=== PATIENT | male | born 1955 | race Caucasian/White ===

== ENCOUNTER 2021-02-01 17:46 | Emergency (ER) | payer MEDICAID, SELFPAY ==
[2021-02-01 17:57] VITALS: BP 100/65; PULSE 97; RESP 16; TEMP 36.3; O2SAT 93; BMI 28.8
[2021-02-01 18:55] VITALS: BP 106/73; BP 108/66; BP 90/63; PULSE 89; PULSE 90; PULSE 96
[2021-02-01 18:55] LABS: Add Urine Microscopic? NO; Charge for UA Resulting for Rev
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
--- NOTE | 2021-02-01 19:03 | ECG_ITS ---
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
[2021-02-01 19:23] LABS: Basophils # 0.1 10^3/uL (0.0-0.1); Basophils % 0.4 %; Eosinophils % 0.1 %; Hematocrit 40.1 % (42.0-52.0); Hemoglobin 13.8 g/dL (11.7-16.6); Mean Corpuscular HGB Conc 34.4 g/dL (30.0-36.0); Mean Corpuscular Hemoglobin 31.4 pg (28.0-34.0); Mean Corpuscular Volume 91.1 fL (80-94); Mean Platelet Volume 9.5 fL (7.4-10.4); Monocytes # 1.8 10^3/uL (0.2-0.9); Neutrophils # 16.91 10^3/uL (1.8-7.7); Neutrophils % 84.9 %; Nucleated Red Blood Cells % 0 %; Platelet Count 307 10^3/cmm (130-400); Red Cell Distribution Width 12.2 % (12.1-15.1); White Blood Count 19.9 10^3/uL (4.0-10.0)
[2021-02-01 19:28] LABS: Bilirubin Urine 1+ (Negative); Blood Urine Neg (Negative); Glucose Urine UA Norm (Normal); Ketones Urine 2+ (Negative); Leukocyte Esterase Urine Negative (Negative); Nitrate Urine Negative (Negative); Protein Urine Neg (Negative); Specific Gravity, Urine 1.015 (1.005-1.030); Urine Appearance Clear (CLEAR); Urine Color Yellow (Yellow); Urobilinogen Urine 1 mg/dL (Negative); pH Urine 5 (5-7)
--- NOTE | 2021-02-01 19:42 | XRR_ITS ---
PROCEDURE INFORMATION: Exam: XR Chest Exam date and time: 02/01/2021 8:05 PM Age: 65 years old Clinical indication: Cough; Additional info: Cough - vrad to read TECHNIQUE: Imaging protocol: XR of the chest. Views: 1 view. Total images: 1 COMPARISON: No relevant prior studies available. FINDINGS: Lungs: COPD/chronic bronchitis/emphysema. Senile fibrosis primarily lung bases with mild parenchymal scarring. Evidence of antecedent granulomatous disease. Pleural spaces: Unremarkable. No pleural effusion. No pneumothorax. Heart/Mediastinum: Cardiac structures and configuration with arteriosclerosis. Bones/joints: Unremarkable. XR/XR chest 1V portable [id number] IMPRESSION: Nonacute.
[2021-02-01 19:43] LABS: Alanine Aminotransferase 13 U/L (0-41); Albumin Level 3.8 g/dL (3.5-5.2); Alkaline Phosphatase 100 IU/L (40-130); Anion Gap 14.9 (5-19); Aspartate Amino Transferase 12 U/L (0-40); Blood Urea Nitrogen 16 mg/dL (8-23); Calcium 8.5 mg/dL (8.5-10.5); Carbon Dioxide 24 mmol/L (22-29); Chloride 91 mmol/L (98-107); Globulin 3.1 g/dL (1.3-4.6); Glomerular Filtration Rate 67.4 mL/min (90-130); Glucose 104 mg/dL (65-115); Osmolality Calculated 263 mOsm/kg (285-295); Potassium 3.9 mmol/L (3.5-5.1); Sodium 126 mmol/L (136-145); Total Bilirubin 1.5 mg/dL (0.15-1.2); Total Protein 6.9 g/dL (6.6-8.7)
[2021-02-01] MEDS: sodium chloride 0.9% 500 ML 999 ML IV ×2 (19:43→20:33)
[2021-02-01 19:44] VITALS: BP 119/71; PULSE 87; RESP 15; O2SAT 94
[2021-02-01 19:44] LABS: Lactate (Lactic Acid level) 0.9 mmol/L (0.5-2.2)
[2021-02-01] MEDS: amoxicillin-clav 875-125 mg Tablet 1 TAB PO (21:07)
[2021-02-01 21:08] VITALS: BP 133/86; PULSE 94; RESP 15; O2SAT 93
[2021-02-01 21:14] VITALS: BP 133/86; RESP 16; O2SAT 94
== END 2021-02-01 21:15 | disposition home or self-care (01) ==
PROVIDERS: Emergency Provider Nurse Practitioner Family
DX: T88.7XXA Unspecified adverse effect of drug or medicament, initial encounter (principal); T50.905A Adverse effect of unspecified drugs, medicaments and biological substances, initial encounter; J44.0 Chronic obstructive pulmonary disease with (acute) lower respiratory infection; J20.9 Acute bronchitis, unspecified; Z79.82 Long term (current) use of aspirin; I10 Essential (primary) hypertension
CPT/HCPCS: 71045; 80053; 81003; 83605; 85025; 93005; 99283; J7040

== ENCOUNTER 2021-02-06 11:48 | Inpatient (IN) | payer MEDICAID, SELFPAY ==
[2021-02-06] VITALS (28 sets, daily range): BP systolic 87–146; BP diastolic 59–91; PULSE 71–127; RESP 14–34; TEMP 35.6–37.9; O2SAT 86–97; BMI 30.4
--- NOTE | 2021-02-06 13:06 | XRR_ITS ---
PROCEDURE INFORMATION: Exam: XR Chest Exam date and time: 02/06/2021 1:45 PM Age: 65 years old Clinical indication: Cough and dyspnea; Patient HX: Dehydration no chest complaints; Additional info: Dyspnea/cough TECHNIQUE: Imaging protocol: XR of the chest. Views: 1 view. COMPARISON: CR (CHEST, ) 02/01/2021 7:55 PM FINDINGS: Lungs: Increased patchy parenchymal airspace opacities in the lateral right lower lobe compared with recent prior. Mild emphysematous changes. Pleural spaces: Unremarkable. No pleural effusion. No pneumothorax. Heart/Mediastinum: Unremarkable. No cardiomegaly. Bones/joints: Unremarkable. XR/XR chest 1V portable [id number] IMPRESSION: Increasing right lower lobe airspace disease.
--- NOTE | 2021-02-06 13:07 | W.ED.GENADLT ---
HPI - General Adult General: Chief complaint: General Medical Stated complaint: DEHYDRATION/WEAKNESS Time Seen by Provider: 02/06/21 12:24 History of Present Illness: HPI narrative: 65-year-old male comes in complaining of weakness difficulty standing up he was recently placed on Lasix. He was seen last week and was had some his blood pressure medicines decreased. When he arrived EMS found his mildly hypoxic he does not usually use oxygen was started on 3 L by nasal cannula. He denies any chest pain has had some cough and shortness of breath. No fever. He was seen last week and treated for bronchitis with Augmentin which she has been taking. Onset (ago): day(s) Severity: moderate Relieving factors: none Exacerbating factors: none Associated symptoms: Reports cough and dyspnea; Deny chest pain, confusion, diaphoresis, decreased appetite, fevers/chills, headache(s), malaise, nausea, rash, palpitations, seizures, short of breath, syncope, vomiting or weakness Review of Systems Const: Denies: malaise or diaphoresis ENMT: Denies: throat pain, ear or mastoid pain, nasal discharge or nasal congestion Card: Denies: chest pain, palpitations or syncope Resp: Reports: dyspnea, productive cough and wheezing GI: Denies: nausea or vomiting : Denies: flank pain, dysuria, urinary frequency or urinary urgency Skin/Breast: Denies: rash Neuro: Denies: headache(s) or confusion PFS ED PFSH: Medical History COPD (chronic obstructive pulmonary disease) HTN (hypertension) Family History Other CAD (coronary artery disease) Hypertension Denies family history of Diabetes Social History Smoking and tobacco status: former smoker Quit status (tobacco): has quit using tobacco Alcohol intake: former Housing: House Physical Exam Const: COMMON NORMALS: no acute distress GENERAL APPEARANCE: cooperative and comfortable ORIENTATION/CONSCIOUSNESS: Yes awake, Yes oriented to person, Yes oriented to place and Yes oriented to time HENMT: COMMON NORMALS: normocephalic, atraumatic and hearing grossly normal bilaterally HEAD & SCALP: normocephalic and atraumatic Neck/C-Spine: COMMON NORMALS: no JVD Resp: AUSCULTATION: rhonchi, wheezes and diminished lung sounds Cardio: COMMON NORMALS: no JVD, regular rhythm and No murmurs present (Cardio) RATE: tachycardic RHYTHM: regular rhythm GI: COMMON NORMALS: Soft to palpation and No hepatosplenomegaly present AUSCULTATION: Yes normoactive bowel sounds PALPATION: Yes Soft to palpation, No Tenderness to palpation present (GI), No Guarding due to palpation present (GI) and Yes No hepatosplenomegaly present Extremity: COMMON NORMALS: normal to inspection, capillary refill normal, no clubbing, cyanosis or edema, no calf tenderness and no pedal edema Neuro: SENSORIUM/ORIENTATION: Yes oriented to person, Yes oriented to place and Yes oriented to time Skin: COMMON NORMALS: no rashes or lesions noted GENERAL SKIN EXAM: no rashes or lesions noted Course Vital Signs: Vital signs: Vital Signs Temperature 96.8 F L 02/08/21 04:00 Pulse Rate 99 02/08/21 07:34 Respiratory Rate 16 02/08/21 07:10 Blood Pressure 132/99 02/08/21 05:15 Pulse Oximetry 94 02/08/21 07:10 MDM - General Adult MDM Narrative: Medical decision making narrative: Chest x-ray shows right lower lobe pneumonia we will start on Levaquin and Zosyn admit to the hospital for supportive cares he also has some mild hyponatremia. His Covid antigen was negative he has an outstanding PCR so he will remain as a PUI at the time of admission discussed with hospitalist orders written Lab Data: Labs: Lab Results 02/06/21 02/06/21 02/06/21 Range/Units 13:00 13:00 13:00 WBC 18.8 H (4.0-10.0) 10^3/ uL RBC 3.99 L (4.1-5.3) 10^6/u L Hgb 12.4 (11.7-16.6) g/dL Hct 36.6 L (42.0-52.0) % MCV 91.7 (80-94) fL MCH 31.1 (28.0-34.0) pg MCHC 33.9 (30.0-36.0) g/dL RDW 12.5 (12.1-15.1) % Plt Count 308 (130-400) 10^3/c mm MPV 11.0 H (7.4-10.4) fL Neut % (Auto) 88.3 % Lymph % (Auto) 2.9 % Childress % (Auto) 7.8 % Eos % (Auto) 0.0 % Baso % (Auto) 0.4 % Neut # (Auto) 16.64 H (1.8-7.7) 10^3/u L Lymph # (Auto) 0.5 L (0.8-4.8) 10^3/u L Childress # (Auto) 1.5 H (0.2-0.9) 10^3/u L Eos # (Auto) 0.0 (0.0-0.8) 10^3/u L Baso # (Auto) 0.1 (0.0-0.1) 10^3/u L Nucleated RBC % (a uto) 0 % Nucleated RBCs # 0.0 /100WBC D-Dimer (0-0.59) ug/mIFE U Sodium 123 L (136-145) mmol/L Potassium 4.0 (3.5-5.1) mmol/L Chloride 90 L (98-107) mmol/L Carbon Dioxide 22 (22-29) mmol/L Anion Gap 15.0 (5-19) BUN 24 H (8-23) mg/dL Creatinine 1.4 H (0.7-1.2) mg/dL GFR Calculation 51.0 L (90-130) mL/min Glucose 129 H (65-115) mg/dL Calculated Osmolal ity 262 L (285-295) mOsm/k g Calcium 7.9 L (8.5-10.5) mg/dL Magnesium 1.9 (1.7-2.3) mg/dL Iron 15 L (59-158) ug/dL TIBC 190 mcg/dl % Saturation 7.8 L (20-50) % Unsat Iron Binding 175 (112-347) ug/dL Total Bilirubin 0.6 (0.15-1.2) mg/dL AST 42 H (0-40) U/L ALT 35 (0-41) U/L Alkaline Phosphata se 75 (40-130) IU/L Creatine Kinase 523 H* (39-308) U/L NT-Pro-B Natriuret Pep 725 H (0-125) pg/mL Total Protein 6.7 (6.6-8.7) g/dL Albumin 3.2 L (3.5-5.2) g/dL Globulin 3.5 (1.3-4.6) g/dL Procalcitonin 0.36 (0-0.5) ng/mL TSH 0.39 (0.27-4.20) uIU/ mL 02/06/21 Range/Units 13:00 WBC (4.0-10.0) 10^3/ uL RBC (4.1-5.3) 10^6/u L Hgb (11.7-16.6) g/dL Hct (42.0-52.0) % MCV (80-94) fL MCH (28.0-34.0) pg MCHC (30.0-36.0) g/dL RDW (12.1-15.1) % Plt Count (130-400) 10^3/c mm MPV (7.4-10.4) fL Neut % (Auto) % Lymph % (Auto) % Childress % (Auto) % Eos % (Auto) % Baso % (Auto) % Neut # (Auto) (1.8-7.7) 10^3/u L Lymph # (Auto) (0.8-4.8) 10^3/u L Childress # (Auto) (0.2-0.9) 10^3/u L Eos # (Auto) (0.0-0.8) 10^3/u L Baso # (Auto) (0.0-0.1) 10^3/u L Nucleated RBC % (a uto) % Nucleated RBCs # /100WBC D-Dimer 4.44 H (0-0.59) ug/mIFE U Sodium (136-145) mmol/L Potassium (3.5-5.1) mmol/L Chloride (98-107) mmol/L Carbon Dioxide (22-29) mmol/L Anion Gap (5-19) BUN (8-23) mg/dL Creatinine (0.7-1.2) mg/dL GFR Calculation (90-130) mL/min Glucose (65-115) mg/dL Calculated Osmolal ity (285-295) mOsm/k g Calcium (8.5-10.5) mg/dL Magnesium (1.7-2.3) mg/dL Iron (59-158) ug/dL TIBC mcg/dl % Saturation (20-50) % Unsat Iron Binding (112-347) ug/dL Total Bilirubin (0.15-1.2) mg/dL AST (0-40) U/L ALT (0-41) U/L Alkaline Phosphata se (40-130) IU/L Creatine Kinase (39-308) U/L NT-Pro-B Natriuret Pep (0-125) pg/mL Total Protein (6.6-8.7) g/dL Albumin (3.5-5.2) g/dL Globulin (1.3-4.6) g/dL Procalcitonin (0-0.5) ng/mL TSH (0.27-4.20) uIU/ mL Discharge Plan Discharge Patient Disposition: Admitted As Inpatient Admit Provider: Rai Wheeler Clinical Impression: Pneumonia, COPD (chronic obstructive pulmonary disease), Hyponatremia, ALTA (acute kidney injury), Rhabdomyolysis Condition: Stable 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
[2021-02-06] MEDS: sodium chloride 0.9% 1,000 ML 999 ML IV (13:17)
[2021-02-06 13:18] LABS: Basophils # 0.1 10^3/uL (0.0-0.1); Basophils % 0.4 %; Hematocrit 36.6 % (42.0-52.0); Hemoglobin 12.4 g/dL (11.7-16.6); Lymphocytes # 0.5 10^3/uL (0.8-4.8); Lymphocytes % 2.9 %; Mean Corpuscular HGB Conc 33.9 g/dL (30.0-36.0); Mean Corpuscular Hemoglobin 31.1 pg (28.0-34.0); Mean Corpuscular Volume 91.7 fL (80-94); Monocytes # 1.5 10^3/uL (0.2-0.9); Monocytes % 7.8 %; Neutrophils # 16.64 10^3/uL (1.8-7.7); Neutrophils % 88.3 %; Nucleated Red Blood Cells % 0 %; Platelet Count 308 10^3/cmm (130-400); Red Blood Count 3.99 10^6/uL (4.1-5.3); Red Cell Distribution Width 12.5 % (12.1-15.1); White Blood Count 18.8 10^3/uL (4.0-10.0)
--- NOTE | 2021-02-06 13:22 | PC.NURSE ---
Patient given a specimen cup to collect sputum sample and urinal given to obtain UA. Patient reports he is unable to go at this time. Educated patient that a urine sample is needed as soon as possible. Educated patient to use call light when a urine sample is provided.
[2021-02-06 13:40] LABS: Alanine Aminotransferase 35 U/L (0-41); Albumin Level 3.2 g/dL (3.5-5.2); Alkaline Phosphatase 75 IU/L (40-130); Blood Urea Nitrogen 24 mg/dL (8-23); Calcium 7.9 mg/dL (8.5-10.5); Carbon Dioxide 22 mmol/L (22-29); Chloride 90 mmol/L (98-107); Globulin 3.5 g/dL (1.3-4.6); Glucose 129 mg/dL (65-115); Magnesium 1.9 mg/dL (1.7-2.3); Osmolality Calculated 262 mOsm/kg (285-295); Sodium 123 mmol/L (136-145); Total Bilirubin 0.6 mg/dL (0.15-1.2); Total Protein 6.7 g/dL (6.6-8.7)
[2021-02-06 13:44] LABS: Slide Review Slide Review Perform
[2021-02-06 13:45] LABS: Aspartate Amino Transferase 42 U/L (0-40); Creatine Phosphokinase 523 U/L (39-308)
[2021-02-06] MEDS: piperacillin-tazobactam 3.375 GM in sodium chloride 0.9% (plus) 50 ML IV ×2 (14:23→21:23)
[2021-02-06] MEDS: levofloxacin-dextrose 5 % 750 MG/150 ML PREMIX 100 MG IV (14:36)
[2021-02-06 15:13] LABS: Bilirubin Urine 1+ (Negative); Blood Urine 3+ (Negative); Glucose Urine UA Norm (Normal); Ketones Urine 1+ (Negative); Leukocyte Esterase Urine Negative (Negative); Nitrate Urine Negative (Negative); Protein Urine 1+ (Negative); Urine Appearance Hazy (CLEAR); Urine Color Yellow (Yellow); Urobilinogen Urine 1 mg/dL (Negative); pH Urine 5 (5-7)
[2021-02-06 15:15] LABS: Add Urine Microscopic? YES; Bacteria Urine 2+ /hpf; RBC Urine 0-4 /hpf (0-2)
[2021-02-06 15:16] LABS: Add Urine Culture? Yes
[2021-02-06] MEDS: sodium chloride 0.9% 500 ML 999 ML IV (15:49)
[2021-02-06 15:57] LABS: SARS Covid-2 Antigen Negative (Negative)
--- NOTE | 2021-02-06 17:05 | CTR_ITS ---
PROCEDURE INFORMATION: Exam: CT Chest Without Contrast; Diagnostic Exam date and time: 02/06/2021 5:11 PM Age: 65 years old Clinical indication: Shortness of breath; Additional info: Copd/pna TECHNIQUE: Imaging protocol: Diagnostic computed tomography of the chest without contrast. Radiation optimization: All CT scans at this facility use at least one of these dose optimization techniques: automated exposure control; mA and/or kV adjustment per patient size (includes targeted exams where dose is matched to clinical indication); or iterative reconstruction. COMPARISON: CR XR chest 1V portable [id number] 02/06/2021 1:35 PM RADIATION DOSE METRICS: Total DLP (mGy-cm): 773.51 FINDINGS: Lungs: Severe emphysema. [place] in the right upper lobe. Scattered areas of consolidation throughout right lower lobe. Scattered calcified granulomas in the lungs. Pleural spaces: Trace right-sided pleural effusion. Negative for pneumothorax. Heart: Unremarkable. No cardiomegaly. No pericardial effusion. Mediastinal space: Scattered small calcified granulomas in the nestor and subcarinal space of the mediastinum. Aorta: Unremarkable. No aortic aneurysm. Lymph nodes: Unremarkable. No enlarged lymph nodes. Spleen: Calcified granulomas in the spleen. Bones/joints: Unremarkable. No acute fracture. Multiple old healed left posterior rib fracture deformities. Soft tissues: Unremarkable. CT/CT chest con [id number] IMPRESSION: Bronchopneumonia in the right lower lobe with a trace parapneumonic pleural effusion. Radiation Dose CTDIVOL = (mGy): DLP = 773.51 (mGy-cm)
[2021-02-06] MEDS: ipratropium-albuterol 3 mL Neb INHALATION ×3 (17:28→23:43)
--- NOTE | 2021-02-06 18:00 | P.HP_ITS ---
Providers/Chief Complaint Admitting Physician: Rai Wheeler MD Primary Care Provider: Bishop Mancilla MD Chief Complaint: DEHYDRATION/WEAKNESS History of Present Illness RIKKI IRWIN is a 65 year old male with past medical history of COPD, hypertension who presents to the ER today with worsening shortness of breath for over 1 week. Patient states he was in the ER last and was discharged home with oral Augmentin though her symptoms continue to worsen. He states he is been having difficulty in breathing at rest exacerbated on lying down, minimal movement, speaking. He states he has been having cough with mild expectoration. Denies any chest pain, nausea, vomiting, myalgias. He is not sure if he has been having fever though complaining of weakness. Patient has no history of recent COPD exacerbation. He is a former smoker stopped smoking 2 years ago. He denies any sick contact, COVID-19 immunization or known exposure to COVID-19 pneumonia. Blood work in the ER showed a white run of 18.8, hemoglobin of 12.4, platelet count of three hundred and eight, sodium of one twenty-three, chloride of ninety, creatinine of 1.4, BUN of twenty-four, CPK of 523,UA negative for any signs of UTI. Chest x-ray in the ER concerning for increasing right lower lobe airspace disease. Review of Systems General: Reports: 10 or more systems reviewed and unremarkable except in HPI and below Const: Denies: fever(s), chills, body aches, change in appetite, change in weight, malaise, night sweats, diaphoresis, change in sleep pattern, daytime sleepiness or snoring Eyes: Denies: change in vision, blurry vision, photophobia, eye discomfort or eye discharge ENMT: Denies: throat pain, enlarged tonsils, hoarseness, mouth pain, oral sores, dry mouth, tinnitus, nasal congestion or post nasal drip Card: Denies: chest pain, palpitations, irregular heart rhythm, edema, swelling of feet/ankles, lightheadedness, syncope, pre-syncope, dyspnea on e xertion, orthopnea, leg pain with exertion or acrocyanosis Resp: Denies: dyspnea, productive cough, non-productive cough, wheezing, stridor, pain on inspiration, change in phlegm color, hemoptysis or chest congestion GI: Denies: abdominal pain, nausea, vomiting, hematemesis, coffee ground emesis, dysphagia, heartburn, diarrhea, constipation, bloating, GI cramping, change in bowel habits, pain on defecation, hematochezia or melena : Denies: flank pain, difficulty urinating, dysuria, urinary frequency, urinary urgency, urinary hesitancy, urinary dribbling, difficulty starting urination, change in urine stream, nocturia or hematuria Musc: Denies: neck pain, back pain, extremity pain, joint pain, joint swelling, joint redness, joint stiffness or limited range of motion Neuro: Denies: headache(s), numbness in extremities, weakness in extremities, sensory changes, lack of coordination, difficulty walking, frequent falls, dizziness, vertigo, confusion, Slurred speech present, difficulty communicating thoughts or seizure-like activity Psych: Denies: anxiety, depression, mood swings, panic attacks, hopelessness or irritability Endo: Denies: polyuria, polydipsia, tired all the time, cold intolerance, exc essive sweating, flushing or heat intolerance Valeriy/Lymph: Denies: easy bruising or easy bleeding All/Imm: Denies: tongue swelling, facial swelling or acute wheezing Medications/Allergies Home Medications Medication Instructions Recorded Confirmed Last Taken Type albuterol sulfate [ProAir HFA] 2 puff INHALATION Q6H PRN 02/01/21 02/06/21 02/06/21 History amoxicillin-pot clavulanate 1 tab PO BID #20 tab 02/01/21 02/06/21 02/06/21 Rx [Augmentin] aspirin [Aspir-81] 81 mg PO DAILY@02/01/21 02/06/21 02/06/21 History budesonide-formoterol [Symbicort] 2 puff INHALATION BID@02/01/21 02/06/21 02/06/21 History losartan 100 mg PO DAILY@02/01/21 02/06/21 02/06/21 History metoprolol tartrate 12.5 mg PO Q6H 02/01/21 02/06/21 02/06/21 History tiotropium bromide [Spiriva with 1 cap INHALATION DAILY@02/01/21 02/06/21 02/06/21 History HandiHaler] Allergies Allergy/AdvReac Type Severity Reaction Status Date / Time No Known Allergies Allergy Verified 02/06/21 11:55 PFSH Acute PFSH: Medical History (Updated 02/06/21 @ 18:06 by Rai Wheeler MD) COPD (chronic obstructive pulmonary disease) HTN (hypertension) Family History (Updated 02/06/21 @ 18:07 by Rai Wheeler MD) Other CAD (coronary artery disease) Hypertension Denies family history of Diabetes Social History (Updated 02/06/21 @ 18:07 by Rai Wheeler MD) Smoking and tobacco status: former smoker Quit status (tobacco): has quit using tobacco Alcohol intake: former Housing: House Vitals/I&O/Wt Last Vital Signs Temp 100.3 F H 02/06/21 11:49 Pulse 98 02/06/21 17:35 Resp 20 H 02/06/21 17:28 BP 130/73 02/06/21 13:41 Pulse Ox 94 02/06/21 17:28 Weight last 48 hrs Weight 90.718 kg Physical Exam Narrative: EXAM NARRATIVE: General: No acute distress, AO x3, tired appearing, diaphoretic on 3 L oxygen supplementation HEENT: PERRLA, pupils bilaterally equal and reactive Chest: Bronchial breath sounds, rhonchi all over the lung bauman more in the right lower lobe with coarse crackles, good air entry bilaterally CVS: S1-S2 regular, no murmurs, no tachycardia, no gallops, no rubs Abdomen: Soft, nontender, no organomegaly, bowel sounds present Neuro: No focal deficits, no facial deformity, AO x3, power 5/5 in all limbs Data : 02/06/21 13:00 02/06/21 13:00 Micro: Microbiology 02/06/21 13:40 Blood Culture - Preliminary Blood SPECIMEN COLLECTED 02/06/21 13:20 Blood Culture - Preliminary Blood SPECIMEN COLLECTED A&P Assessment and plan (1) SOB (shortness of breath): Status: Acute (2) Pneumonia: Status: Acute (3) COPD (chronic obstructive pulmonary disease): Status: Acute Qualifiers: COPD type: COPD with acute lower respiratory infection Qualified Code(s): J44.0 - Chronic obstructive pulmonary disease with (acute) lower respiratory infection (4) HTN (hypertension): Status: Acute (5) Hyponatremia: Status: Acute (6) Rhabdomyolysis: Status: Acute (7) ALTA (acute kidney injury): Status: Acute Additional A&P Information Shortness of breath: Most likely secondary to right lower lobe pneumonia in setting of COPD exacerbation: Check blood culture, urine Legionella, sputum culture, procalcitonin, proBNP, MRSA swab. CT chest without contrast to rule out cavitary lesion as suspicious on the x- ray. Start patient on vancomycin and Zosyn, azithromycin for now. Will de-escalate antibiotics as per culture results. DuoNebs every 6 hours, Pulmicort twice daily, albuterol as needed. Solu-Medrol 60 mg every 8 hours. Will wean to steroids as possible. Wean oxygen supplementation keeping saturation over 90%. Patient does not have history of CAD in the past. Check echocardiogram. Lactic acid with reflex. IV fluids with normal saline at 75 cc/h. Rapid COVID-19 antigen negative in the ER. For now suspicion of COVID-19 pneumonia is low. Hypertension: Goal blood pressure less than 140/90 mmHg. For now hold off on losartan given ALTA but continue to home dose of metoprolol. ALTA: Most likely secondary to dehydration. Medical reconciliation done for nephrotoxic drugs. IV fluids as above. Hyponatremia: Normal saline as above. Continue to monitor. CODE STATUS: Patient states he would like to be full code. Cardiac diet. Lovenox for DVT prophylaxis. Famotidine for PUD prophylaxis Attestations Medical Necessity Statement*: Was admission for more than two midnights for treatment of community-acquired pneumonia causing shortness of breath in setting of COPD exacerbation Time Spent in Patient Care: Greater than 35 minutes (>than 50% of time spent in counselling and/or direct pt care on unit) . Coding Level of Care Code Acute [employer] Counselor for [facility] Fwd Diagnoses SOB (shortness of breath) R06.02 Pneumonia J18.9 COPD (chronic obstructive pulmonary disease) J44.0 COPD type: COPD with acute lower respiratory infection HTN (hypertension) I10 Hyponatremia E87.1 Rhabdomyolysis M62.82 ALTA (acute kidney injury) N17.9
--- NOTE | 2021-02-06 18:14 | ECG_ITS ---
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 Measurements Intervals Sieper Rate: 96 P: 64 NJ: 170 QRS: -12 QRSD: 154 T: 74 QT: 415 QTc: 526 Interpretive Statements SINUS RHYTHM LEFT BUNDLE BRANCH BLOCK [120+ ms QRS DURATION, 80+ ms Q/S IN V1/V2, 85+ ms R IN I/aVL/V5/V6] Compared to ECG 02/01/2021 19:12:50 Left bundle-branch block now present Electronically Signed On 02-10-2021 5:22:25 CDT by Grace Lundberg M.D. [email or web address] Studiomerit [facility] madisonMadison Reed, Inc.[facility].NaPopravku/store/[id number]
[2021-02-06 18:16] LABS: D Dimer 4.44 ug/mIFEU (0-0.59)
[2021-02-06 18:43] LABS: Iron 15 ug/dL (59-158)
[2021-02-06 18:46] LABS: NT Pro B Type Natriuretic Pept 725 pg/mL (0-125); Procalcitonin 0.36 ng/mL (0-0.5); Thyroid Stimulating Hormone 0.39 uIU/mL (0.27-4.20)
[2021-02-06 18:49] LABS: Percent Saturation 7.8 % (20-50); Total Iron Binding Capacity 190 mcg/dl; Unsaturated Iron Binding 175 ug/dL (112-347)
[2021-02-06] MEDS: metoprolol tartrate 25 mg Tablet 12.5 MG PO (19:34)
[2021-02-06] MEDS: famotidine 20 mg/2 mL INJ IVP (19:34)
[2021-02-06] MEDS: enoxaparin 40 mg/0.4 mL Syringe SUBCUT (19:35)
[2021-02-06] MEDS: ferrous gluconate 324 mg Tablet PO (19:35)
[2021-02-06 19:41] LABS: Lactic Sepsis W/Reflex 1.2 mmol/L (0.5-2.2)
[2021-02-06] MEDS: sodium chloride 0.9% 1,000 ML 75 ML IV (19:43)
[2021-02-06] MEDS: budesonide 0.5 mg/2 mL Neb INHALATION (19:46)
--- NOTE | 2021-02-06 20:06 | PC.NURSE ---
Report to Anjelica MORAGN in ICU at this time.
[2021-02-06] MEDS: vancomycin 1,250 MG/250 ML PIGGYBACK 250 MG IV (21:00)
[2021-02-07] VITALS (65 sets, daily range): BP systolic 88–167; BP diastolic 58–139; PULSE 70–158; RESP 16–32; TEMP 36.4–36.7; O2SAT 87–98
[2021-02-07] MEDS: metoprolol tartrate 25 mg Tablet 12.5 MG PO ×3 (03:09→14:01)
[2021-02-07] MEDS: ipratropium-albuterol 3 mL Neb INHALATION ×3 (03:53→11:21)
[2021-02-07 04:19] LABS: Basophils % 0.1 %; Hemoglobin 11.9 g/dL (11.7-16.6); Lymphocytes # 0.4 10^3/uL (0.8-4.8); Lymphocytes % 2.6 %; Mean Corpuscular HGB Conc 33.1 g/dL (30.0-36.0); Mean Corpuscular Hemoglobin 31.2 pg (28.0-34.0); Mean Corpuscular Volume 94.5 fL (80-94); Mean Platelet Volume 10.7 fL (7.4-10.4); Monocytes # 0.3 10^3/uL (0.2-0.9); Monocytes % 2.1 %; Neutrophils # 14.92 10^3/uL (1.8-7.7); Neutrophils % 94.2 %; Nucleated Red Blood Cells % 0 %; Platelet Count 296 10^3/cmm (130-400); Red Blood Count 3.81 10^6/uL (4.1-5.3); White Blood Count 15.9 10^3/uL (4.0-10.0)
[2021-02-07 04:23] LABS: INR 1.26 (0.8-1.2)
[2021-02-07 04:42] LABS: Alanine Aminotransferase 33 U/L (0-41); Albumin Level 2.8 g/dL (3.5-5.2); Alkaline Phosphatase 65 IU/L (40-130); Aspartate Amino Transferase 33 U/L (0-40); Blood Urea Nitrogen 27 mg/dL (8-23); Calcium 7.8 mg/dL (8.5-10.5); Carbon Dioxide 21 mmol/L (22-29); Chloride 98 mmol/L (98-107); Globulin 3.4 g/dL (1.3-4.6); Glucose 152 mg/dL (65-115); Osmolality Calculated 280 mOsm/kg (285-295); Sodium 131 mmol/L (136-145); Total Bilirubin 0.4 mg/dL (0.15-1.2); Total Protein 6.2 g/dL (6.6-8.7)
--- NOTE | 2021-02-07 05:00 | USCV_ITS ---
RIKKI IRWIN Age: 65 Gender: M : 1955 Exam Date: 02/07/2021 06:21 Ordering Phys: Rai Wheeler MD Technologist: Jennifer Morgan Exam Location: [facility] – [place] Indication: H/O PULM HTN AND DD BP: 127 / 87 HR: 85 Rhythm: Sinus Technical Quality: Technically difficult study MEASUREMENTS (Male / Female) Normal Values 2D ECHO LV Diastolic Diameter PLAX 3.9 cm 4.2 - 5.9 / 3.9 - 5.3 cm LV Systolic Diameter PLAX 2.9 cm IVS Diastolic Thickness 1.6 cm 0.6 - 1.0 / 0.6 - 0.9 cm IVS Systolic Thickness 1.5 cm LVPW Diastolic Thickness 1.2 cm 0.6 - 1.0 / 0.6 - 0.9 cm LVPW Systolic Thickness 1.7 cm RV Chamber Size 3.3 cm LVOT Diameter 2.0 cm LV Ejection Fraction 2D Teich 51.1 % LV Ejection Fraction MOD 2C 67.5 % LV Ejection Fraction 2C AL 68.6 % LA Diameter 3.4 cm LA Width 3.4 cm LA Height 5.1 cm RA Width 4.2 cm RA Height 4.4 cm Aorta at Sinotubular Diameter 2.4 cm M-MODE LV Diastolic Diameter MM 4.5 cm 4.2 - 5.9 / 3.9 - 5.3 cm LV Systolic Diameter MM 3.2 cm LV Ejection Fraction MM Teich 53.8 % IVS Diastolic Thickness MM 1.5 cm 0.6 - 1.0 / 0.6 - 0.9 cm IVS Systolic Thickness MM 1.4 cm LVPW Diastolic Thickness MM 1.2 cm 0.6 - 1.0 / 0.6 - 0.9 cm LVPW Systolic Thickness MM 1.4 cm Aortic Annulus Diameter 2.9 cm LA Ao Ratio MM 1.2 MV E Point Septal Separation 1.1 cm DOPPLER AV Peak Velocity 171.0 cm/s LVOT Peak Velocity 100.0 cm/s AV Area Cont Eq vti 1.8 cm squared AV Area Cont Eq pk 1.9 cm squared MV Area PHT 3.5 cm squared Mitral E to A Ratio 1.0 MV E' Velocity 48.0 cm/s Mitral E to MV E' Ratio 6.3 Mitral E to LV E' Lateral Ratio 6.3 Mitral E to LV E' Septal Ratio 6.4 TR Peak Velocity 316.0 cm/s TR Peak Gradient 39.9 mmHg TV Peak E Velocity 96.0 cm/s Right Atrial Pressure 3.0 mmHg Pulmonary Artery Systolic Pressu 42.9 mmHg PV Peak Velocity 108.0 cm/s RV Acceleration Time 0.1 s RV Ejection Time 0.3 s RV AcT/ET 0.3 FINDINGS Left Ventricle Normal left ventricular size and systolic function, EF 56 %. No regional wall motion abnormalities. Right Ventricle The right ventricle is normal in size and function. Right Atrium The right atrium is normal in size. Left Atrium The left atrium is normal in size. Mitral Valve No gross abnormalities noted Aortic Valve Thickened aortic valve. Tricuspid Valve Trace tricuspid valve regurgitation. Estimated pulmonary artery peak systolic pressure of 43 mmHg Pulmonic Valve Pulmonic valve not well visualized. Pericardium Normal pericardium without effusion. Aorta Normal ascending aorta dimension. CONCLUSIONS Normal left ventricular size and systolic function, EF 56 %. No regional wall motion abnormalities. Thickened aortic valve. Trace tricuspid valve regurgitation. Estimated pulmonary artery peak systolic pressure of 43 mmHg. There is no pericardial effusion. There are no intracardiac masses. Technically difficult study because of the poor ultrasonic window. Dr Len Merida MD FACC (Electronically Signed) Final Date: 07 February 2021 20:54 S
[2021-02-07 05:16] LABS: Estmated Average Glucose 105; Hemoglobin A1C 5.3 % (4.0-6.0)
[2021-02-07] MEDS: piperacillin-tazobactam 3.375 GM in sodium chloride 0.9% (plus) 50 ML IV ×3 (05:57→21:52)
[2021-02-07] MEDS: famotidine 20 mg/2 mL INJ IVP ×2 (05:57→17:57)
[2021-02-07] MEDS: budesonide 0.5 mg/2 mL Neb INHALATION ×2 (07:56→19:53)
[2021-02-07] MEDS: azithromycin 500 MG in sodium chloride 0.9% 250 ML 250 MG IV (08:40)
[2021-02-07] MEDS: ferrous gluconate 324 mg Tablet PO ×2 (08:41→17:57)
--- NOTE | 2021-02-07 09:32 | PC.CHAP ---
Pastoral Care Encounter/Spiritual Assessment Type of Contact [] Declined university archivist visit [] Patient/Family/Request visit [] Outpatient visit [] Follow-up visit [] Physician referral [] Code/Alert [x] Routine visit [] Staff referral [] Actively dying [] Patient sleeping [] Family support [] [] Out of room [] Palliative care [] [x] Receiving care in room [] Pre-surgical visit [] Trauma [] Long length of stay [x] ICU visit [] Other: Relational/Emotional Strength [] Patient feels connected with others/family/visitors/staff [] Distress [] Loneliness/isolation [] Abandonment Spirituality of Patient [] Person of [place] [] Attends Hinduism of their [place] [] Believes in Prayer [] Reads Bible or Gnosticist materials [] There are Spiritual issues to be addressed Store Consultant Interventions [x] Prayer [] Active listening [] Non-anxious presence [] Spiritual/emotional support [] Crisis/trauma care [] Spiritual counseling [] Bereavement support [] Provided bereavement packet [] Provided Bible/devotional materials [] Provided toy/stuffed animal, coloring book to patient or family member [] Provided Communion [] Anointing/[place] [] Salvation [x] Completed spiritual assessment [] Other: Impact on Illness or Injury [] Angry [] Fearful [] Anxious [] Often cries [] Exhaustion [] Unable to work [] Unable to attend alevism [] Unable to walk/stand [] Unable to read [] Unable to drive [] Unable to eat/drink [] Unable to sleep [] Unable to be with family [] Patient intubated [] Other: Summary Time spent with patient
--- NOTE | 2021-02-07 12:07 | P.PN_ITS ---
Subjective Subjective: Interval history: No events overnight. Patient sitting up in chair. States he is feeling better than yesterday. Denies any nausea, vomiting, headache. Still looks very tachypneic but not diaphoretic anymore. Afebrile overnight. Tachycardic on examination. Hemodynamically stable. Saturating 94% on 4 L nasal cannula. Vitals/I&O/Wt Last Vital Signs Temp 98.0 F 02/07/21 08:00 Pulse 107 H 02/07/21 11:21 Resp 18 02/07/21 11:21 BP 113/85 02/07/21 09:00 Pulse Ox 92 02/07/21 11:21 02/06/21 02/07/21 02/07/21 22:59 06:59 14:59 Intake Total 370 / 370 200 / 570 1550 / 1550 Output Total 350 / 350 150 / 150 Balance 370 / 370 -150 / 220 1400 / 1400 Weight last 48 hrs Weight 93.667 kg Weight 90.718 kg Physical Exam Narrative: EXAM NARRATIVE: General: No acute distress, AO x3, HEENT: PERRLA, pupils bilaterally equal and reactive Chest: Bronchial breath sounds, rhonchi all over the lung bauman more in the right lower lobe with coarse crackles, good air entry bilaterally CVS: S1-S2 regular, no murmurs, no tachycardia, no gallops, no rubs Abdomen: Soft, nontender, no organomegaly, bowel sounds present Neuro: No focal deficits, no facial deformity, AO x3, power 5/5 in all limbs Data : 02/07/21 04:01 02/07/21 04:01 Micro: Microbiology 02/06/21 14:50 Gram Stain - Final Sputum - Expectorated Sputum Sputum Culture - Preliminary Gram Negative Rods Gram Negative Rods#2 02/06/21 14:30 Urine Culture - Preliminary Urine,Clean Catch 02/06/21 14:30 Legionella Urinary Antigen - Final Urethra 02/06/21 13:40 Blood Culture - Preliminary Blood SPECIMEN COLLECTED 02/06/21 13:20 Blood Culture - Preliminary Blood SPECIMEN COLLECTED A&P Assessment and plan (1) SOB (shortness of breath): Status: Acute (2) Legionella pneumonia: Status: Acute (3) COPD (chronic obstructive pulmonary disease): Status: Acute Qualifiers: COPD type: COPD with acute lower respiratory infection Qualified Code(s): J44.0 - Chronic obstructive pulmonary disease with (acute) lower respiratory infection (4) Hyponatremia: Status: Acute (5) ALTA (acute kidney injury): Status: Acute (6) Rhabdomyolysis: Status: Acute (7) HTN (hypertension): Status: Acute Additional A&P Information Shortness of breath: Secondary to Legionella pneumonia in setting of COPD exacerbation. Sputum culture growing gram-negative rods. Urine Legionella antigen positive. Blood cultures have remained negative, MRSA swab results of awaited. COVID-19 PCR negative. Remove isolation precautions. Stop vancomycin. Switch azithromycin to Levaquin. Continue Zosyn. CT chest results appreciated. Switch DuoNeb to ipratropium every 6 hours and Xopenex every 6 hours, continue budesonide twice daily. Continue Solu-Medrol 60 mg IV every 8 hours. We will try to wean steroids as possible. Wean oxygen supplementation keeping saturation over 90%. Patient does not have history of CAD in the past. Echocardiogram results awaited. Stop IV fluids. Hypertension: Goal blood pressure less than 140/90 mmHg. For now hold off on losartan given ALTA. Increase metoprolol to 37.5 mg twice daily from home dose of 12.5 mg every 6 hours. ALTA: Resolved. Most likely secondary to dehydration. Medical reconciliation done for nephrotoxic drugs. Hyponatremia: Secondary dehydration versus Legionella. We will continue to monitor. CODE STATUS: Patient states he would like to be full code. Cardiac diet. Lovenox for DVT prophylaxis. Famotidine for PUD prophylaxis. Transfer to floors. Attestations Medical Necessity Statement*: Requires further hospitalization for management of hypoxia secondary to Legionella pneumonia in setting of COPD exacerbation. Time Spent in Patient Care: Greater than 35 minutes (>than 50% of time spent in counselling and/or direct pt care on unit) . Coding Level of Care Code Acute Maintenance Analyst for [facility] Fwd Diagnoses SOB (shortness of breath) R06.02 Legionella pneumonia A48.1 COPD (chronic obstructive pulmonary disease) J44.0 COPD type: COPD with acute lower respiratory infection Hyponatremia E87.1 ALTA (acute kidney injury) N17.9 Rhabdomyolysis M62.82 HTN (hypertension) I10
[2021-02-07] MEDS: levoFLOXacin 750 mg Tablet PO (12:39)
[2021-02-07] MEDS: sodium chloride 0.9% 1,000 ML 75 ML IV (12:44)
[2021-02-07 13:49] LABS: Coronavirus Test Green County Not Detected
[2021-02-07] MEDS: levalbuterol 1.25 mg/3 mL Neb INHALATION ×3 (15:44→23:27)
[2021-02-07] MEDS: ipratropium 0.5 mg/2.5 mL Neb INHALATION ×3 (15:44→23:27)
[2021-02-07] MEDS: enoxaparin 40 mg/0.4 mL Syringe SUBCUT (18:02)
[2021-02-07] MEDS: metoprolol tartrate 25 mg Tablet 37.5 MG PO (21:52)
[2021-02-08] VITALS (39 sets, daily range): BP systolic 118–169; BP diastolic 48–104; PULSE 84–113; RESP 15–27; TEMP 36–36.6; O2SAT 78–97
[2021-02-08] MEDS: levalbuterol 1.25 mg/3 mL Neb INHALATION ×4 (03:28→21:01)
[2021-02-08] MEDS: ipratropium 0.5 mg/2.5 mL Neb INHALATION ×4 (03:28→21:01)
[2021-02-08 03:35] LABS: Basophils % 0.1 %; Hematocrit 36.2 % (42.0-52.0); Hemoglobin 12.2 g/dL (11.7-16.6); Lymphocytes # 0.4 10^3/uL (0.8-4.8); Lymphocytes % 1.9 %; Mean Corpuscular HGB Conc 33.7 g/dL (30.0-36.0); Mean Corpuscular Hemoglobin 31.1 pg (28.0-34.0); Mean Corpuscular Volume 92.3 fL (80-94); Mean Platelet Volume 11.2 fL (7.4-10.4); Monocytes # 0.5 10^3/uL (0.2-0.9); Monocytes % 2.5 %; Neutrophils # 20.55 10^3/uL (1.8-7.7); Neutrophils % 94.3 %; Nucleated Red Blood Cells % 0 %; Platelet Count 397 10^3/cmm (130-400); Red Blood Count 3.92 10^6/uL (4.1-5.3); White Blood Count 21.8 10^3/uL (4.0-10.0)
[2021-02-08 03:46] LABS: Alanine Aminotransferase 36 U/L (0-41); Alkaline Phosphatase 63 IU/L (40-130); Anion Gap 14.7 (5-19); Aspartate Amino Transferase 29 U/L (0-40); Blood Urea Nitrogen 35 mg/dL (8-23); Calcium 8.2 mg/dL (8.5-10.5); Carbon Dioxide 21 mmol/L (22-29); Chloride 95 mmol/L (98-107); Globulin 3.2 g/dL (1.3-4.6); Glomerular Filtration Rate 55.6 mL/min (90-130); Glucose 157 mg/dL (65-115); Osmolality Calculated 275 mOsm/kg (285-295); Potassium 3.7 mmol/L (3.5-5.1); Sodium 127 mmol/L (136-145); Total Bilirubin 0.3 mg/dL (0.15-1.2); Total Protein 6.2 g/dL (6.6-8.7)
[2021-02-08] MEDS: famotidine 20 mg/2 mL INJ IVP (05:59)
[2021-02-08] MEDS: levoFLOXacin 750 mg Tablet PO (05:59)
[2021-02-08] MEDS: piperacillin-tazobactam 3.375 GM in sodium chloride 0.9% (plus) 50 ML IV (05:59)
--- NOTE | 2021-02-08 06:14 | PC.NURSE ---
Patient resting up in the chair half the night, tolerated the increase in Metoprolol fine, heart rate around 100s all night, seemed comfortable with it. He is still mildly wheezy but seems improved tonight. Patient back in bed around midnight and has been up all night. Patient has been tolerating nasal cannula fine and only sob with activity.
[2021-02-08] MEDS: budesonide 0.5 mg/2 mL Neb INHALATION ×2 (07:28→21:01)
[2021-02-08] MEDS: metoprolol tartrate 25 mg Tablet 37.5 MG PO ×2 (08:02→21:25)
[2021-02-08] MEDS: ferrous gluconate 324 mg Tablet PO ×2 (08:02→19:19)
--- NOTE | 2021-02-08 08:55 | PC.CHAP ---
Pastoral Care Encounter/Spiritual Assessment Type of Contact [] Declined software writer visit [] Patient/Family/Request visit [] Outpatient visit [] Follow-up visit [] Physician referral [] Code/Alert [x] Routine visit [] Staff referral [] Actively dying [] Patient sleeping [] Family support [] [] Out of room [] Palliative care [] [] Receiving care in room [] Pre-surgical visit [] Trauma [] Long length of stay [x] ICU visit [] Other: Relational/Emotional Strength [] Patient feels connected with others/family/visitors/staff [] Distress [] Loneliness/isolation [] Abandonment Spirituality of Patient [] Person of [place] [] Attends Presybeterian of their [place] [] Believes in Prayer [] Reads Bible or Zoroastrian materials [] There are Spiritual issues to be addressed Director Learning And Development Interventions [x] Prayer [x] Active listening [x] Non-anxious presence [x] Spiritual/emotional support [] Crisis/trauma care [] Spiritual counseling [] Bereavement support [] Provided bereavement packet [] Provided Bible/devotional materials [] Provided toy/stuffed animal, coloring book to patient or family member [] Provided Communion [] Anointing/[place] [] Salvation [x] Completed spiritual assessment [] Other: Impact on Illness or Injury [] Angry [] Fearful [] Anxious [] Often cries [] Exhaustion [] Unable to work [] Unable to attend taoism [] Unable to walk/stand [] Unable to read [] Unable to drive [] Unable to eat/drink [] Unable to sleep [] Unable to be with family [] Patient intubated [] Other: Summary patient setting up in bed... thankful for care and so please that he will live to see another day.... Time spent with patient 10 min
[2021-02-08] MEDS: sodium chloride 0.9% 1,000 ML 75 ML IV (09:22)
[2021-02-08 09:46] LABS: Procalcitonin 0.39 ng/mL (0-0.5)
[2021-02-08] MEDS: ALPRAZolam 0.25 mg Tablet PO ×2 (10:45→14:05)
--- NOTE | 2021-02-08 13:38 | PC.NURSE ---
Patient transferred from icu bed 1 to med surg, room 255, bed 2 via wheelchair. O2 in place via n/c at 4lpm. Stable at time of transfer. No c/o voiced during this time. Staff made aware of pt arrival to floor. Staff at bedside at time of transfer.
--- NOTE | 2021-02-08 16:15 | P.PN_ITS ---
Subjective Subjective: Interval history: No complaints overnight. Patient lying comfortably in bed. On examination early in the morning in ICU patient is in jovial mood sitting up in bed. States he had a restful night. Denies any nausea vomiting, headache. States breathing little better. Asking when can he go home. Appetite is good. Has remained hemodynamically stable. On revisit with patient on medical floor patient seems agitated with son at bedside. Patient states he would like to leave AMA. He states he gets elevated with steroids every single time and has an allergy to both steroids and Xanax. Both medications were removed from the medication list. We discussed in detail for importance of patient to stay in hospital because of ongoing pneumonia, new oxygen requirement and still requiring regular nebulization for asthma. For now patient has agreed to stay but is requesting more steroids and Xanax which have been removed from the medication list. We did discuss in detail that with no steroids going forward will be slow recovery from COPD exacerbation because of severe chest tightness. Both son and patient are agreeable to current treatment plan and is okay with slow improvement going further. Vitals/I&O/Wt Last Vital Signs Temp 96.8 F L 02/08/21 04:00 Pulse 101 H 02/08/21 15:31 Resp 20 H 02/08/21 15:20 BP 169/100 02/08/21 10:00 Pulse Ox 84 L 02/08/21 15:20 02/08/21 02/08/21 02/08/21 06:59 14:59 22:59 Intake Total 450 / 2945 550 / 550 Balance 450 / 2045 550 / 550 Weight last 48 hrs Weight 95.481 kg Weight 93.667 kg Physical Exam Narrative: EXAM NARRATIVE: General: No acute distress, AO x3, HEENT: PERRLA, pupils bilaterally equal and reactive Chest: Bronchial breath sounds, rhonchi all over the lung bauman more in the right lower lobe with coarse crackles, good air entry bilaterally CVS: S1-S2 regular, no murmurs, no tachycardia, no gallops, no rubs Abdomen: Soft, nontender, no organomegaly, bowel sounds present Neuro: No focal deficits, no facial deformity, AO x3, power 5/5 in all limbs Data : 02/08/21 03:23 02/08/21 03:23 Micro: Microbiology 02/06/21 14:30 Urine Culture - Final Urine,Clean Catch 02/06/21 14:50 Gram Stain - Final Sputum - Expectorated Sputum Sputum Culture - Final Pseudomonas aeruginosa Serratia marcescens 02/06/21 19:45 MRSA Culture - Final Nose 02/06/21 13:40 Blood Culture - Preliminary Blood NEGATIVE TO DATE 02/06/21 13:20 Blood Culture - Preliminary Blood NEGATIVE TO DATE Laboratory Results WBC 21.8 10^3/uL (4.0-10.0) H 02/08/21 03:23 RBC 3.92 10^6/uL (4.1-5.3) L 02/08/21 03:23 Hgb 12.2 g/dL (11.7-16.6) 02/08/21 03:23 Hct 36.2 % (42.0-52.0) L 02/08/21 03:23 MCV 92.3 fL (80-94) 02/08/21 03:23 MCH 31.1 pg (28.0-34.0) 02/08/21 03:23 MCHC 33.7 g/dL (30.0-36.0) 02/08/21 03:23 RDW 13.0 % (12.1-15.1) 02/08/21 03:23 Plt Count 397 10^3/cmm (130-400) 02/08/21 03:23 MPV 11.2 fL (7.4-10.4) H 02/08/21 03:23 Neut % (Auto) 94.3 % 02/08/21 03:23 Lymph % (Auto) 1.9 % 02/08/21 03:23 [place] % (Auto) 2.5 % 02/08/21 03:23 Eos % (Auto) 0.0 % 02/08/21 03:23 Baso % (Auto) 0.1 % 02/08/21 03:23 Neut # (Auto) 20.55 10^3/uL (1.8-7.7) H 02/08/21 03:23 Lymph # (Auto) 0.4 10^3/uL (0.8-4.8) L 02/08/21 03:23 [place] # (Auto) 0.5 10^3/uL (0.2-0.9) 02/08/21 03:23 Eos # (Auto) 0.0 10^3/uL (0.0-0.8) 02/08/21 03:23 Baso # (Auto) 0.0 10^3/uL (0.0-0.1) 02/08/21 03:23 Nucleated RBC % (auto) 0 % 02/08/21 03:23 Nucleated RBCs # 0.0 /100WBC 02/08/21 03:23 PT 16.20 SECONDS (12.1-14.9) H 02/07/21 04:01 INR 1.26 (0.8-1.2) H 02/07/21 04:01 D-Dimer 4.44 ug/mIFEU (0-0.59) H 02/06/21 13:00 Sodium 127 mmol/L (136-145) L 02/08/21 03:23 Potassium 3.7 mmol/L (3.5-5.1) 02/08/21 03:23 Chloride 95 mmol/L (98-107) L 02/08/21 03:23 Carbon Dioxide 21 mmol/L (22-29) L 02/08/21 03:23 Anion Gap 14.7 (5-19) 02/08/21 03:23 BUN 35 mg/dL (8-23) H 02/08/21 03:23 Creatinine 1.3 mg/dL (0.7-1.2) H 02/08/21 03:23 GFR Calculation 55.6 mL/min (90-130) L 02/08/21 03:23 Glucose 157 mg/dL (65-115) H 02/08/21 03:23 Estimat Average Glucose 105 02/07/21 04:01 Hemoglobin A1c 5.3 % (4.0-6.0) 02/07/21 04:01 Calculated Osmolality 275 mOsm/kg (285-295) L 02/08/21 03:23 Lactic Acid 1.2 mmol/L (0.5-2.2) 02/06/21 18:50 Calcium 8.2 mg/dL (8.5-10.5) L 02/08/21 03:23 Magnesium 1.9 mg/dL (1.7-2.3) 02/06/21 13:00 Iron 15 ug/dL (59-158) L 02/06/21 13:00 TIBC 190 mcg/dl 02/06/21 13:00 % Saturation 7.8 % (20-50) L 02/06/21 13:00 Unsat Iron Binding 175 ug/dL (112-347) 02/06/21 13:00 Total Bilirubin 0.3 mg/dL (0.15-1.2) 02/08/21 03:23 AST 29 U/L (0-40) 02/08/21 03:23 ALT 36 U/L (0-41) 02/08/21 03:23 Alkaline Phosphatase 63 IU/L (40-130) 02/08/21 03:23 Creatine Kinase 523 U/L (39-308) H* 02/06/21 13:00 NT-Pro-B Natriuret Pep 725 pg/mL (0-125) H 02/06/21 13:00 Total Protein 6.2 g/dL (6.6-8.7) L 02/08/21 03:23 Albumin 3.0 g/dL (3.5-5.2) L 02/08/21 03:23 Globulin 3.2 g/dL (1.3-4.6) 02/08/21 03:23 Procalcitonin 0.39 ng/mL (0-0.5) 02/08/21 03:23 TSH 0.39 uIU/mL (0.27-4.20) 02/06/21 13:00 Urine Color Yellow (Yellow) 02/06/21 14:30 Urine Appearance Hazy (CLEAR) A 02/06/21 14:30 Urine pH 5 (5-7) 02/06/21 14:30 Ur Specific Keller 1.020 (1.005-1.030) 02/06/21 14:30 Urine Protein 1+ (Negative) H 02/06/21 14:30 Urine Glucose (UA) Norm (Normal) 02/06/21 14:30 Urine Ketones 1+ (Negative) H 02/06/21 14:30 Urine Blood 3+ (Negative) H 02/06/21 14:30 Urine Nitrate Negative (Negative) 02/06/21 14:30 Urine Bilirubin 1+ (Negative) H 02/06/21 14:30 Urine Urobilinogen 1 mg/dL (Negative) H 02/06/21 14:30 Ur Leukocyte Esterase Negative (Negative) 02/06/21 14:30 Urine RBC 0-4 /hpf (0-2) H 02/06/21 14:30 Urine WBC None /hpf (0-5) 02/06/21 14:30 Ur Squamous Epith Cells None /hpf (0-5) 02/06/21 14:30 Amorphous Sediment Not Reportable 02/06/21 14:30 Urine Bacteria 2+ /hpf (NONE) H 02/06/21 14:30 Coarse Granular Casts 5-10 /lpf H 02/06/21 14:30 Nasal/Oral COVID-19 PCR Not detected 02/06/21 21:10 SARS-CoV-2 Ag (Rapid) Negative (Negative) 02/06/21 15:15 Impressions Chest X-Ray 02/06/21 13:06 IMPRESSION: Increasing right lower lobe airspace disease. Chest CT 02/06/21 17:05 IMPRESSION: Bronchopneumonia in the right lower lobe with a trace parapneumonic pleural effusion. Radiation Dose CTDIVOL = (mGy): DLP = 773.51 (mGy-cm) Microbiology 02/06/21 14:30 Urine,Clean Catch Urine Culture - Final 02/06/21 14:50 Sputum - Expectorated Sputum Gram Stain - Final 02/06/21 14:50 Sputum - Expectorated Sputum Sputum Culture - Final Pseudomonas aeruginosa Serratia marcescens 02/06/21 19:45 Nose MRSA Culture - Final 02/06/21 13:40 Blood Blood Culture - Preliminary NEGATIVE TO DATE 02/06/21 13:20 Blood Blood Culture - Preliminary NEGATIVE TO DATE 02/06/21 14:30 Urethra Legionella Urinary Antigen - Final?positive A&P Assessment and plan (1) SOB (shortness of breath): Status: Acute (2) Legionella pneumonia: Status: Acute (3) COPD (chronic obstructive pulmonary disease): Status: Acute (4) Hyponatremia: Status: Acute (5) ALTA (acute kidney injury): Status: Acute (6) Rhabdomyolysis: Status: Acute (7) HTN (hypertension): Status: Acute Additional A&P Information Shortness of breath: Secondary to Legionella pneumonia in setting of COPD exacerbation. Sputum culture growing Serratia and Pseudomonas. Urine Legionella antigen positive. Blood cultures have remained negative, MRSA swab results of awaited. COVID-19 PCR negative. Remove isolation precautions. Continue Levaquin 750 mg daily. Creatinine clearance appreciated. Stop Zosyn as both Serratia Pseudomonas and Legionella are susceptible to Levaquin. CT chest results appreciated. Continue with ipratropium every 6 hours and Xopenex every 6 hours, continue budesonide twice daily. Last Solu-Medrol received at 6 AM. Solu-Medrol stopped as per patient request. Patient has agreed to 1 dose tomorrow for slow weaning. Wean oxygen supplementation keeping saturation over 90%. Patient does not have history of CAD in the past. Echocardiogram results appreciated with EF 56%, no regional wall motion abnormality, PASP of 43 mmHg. Hypertension: Goal blood pressure less than 140/90 mmHg. For now hold off on losartan given ALTA. Increase metoprolol to 37.5 mg twice daily from home dose of 12.5 mg every 6 hours. ALTA: Creatinine back up to 1.4 Restart patient on normal saline at 50 cc/h. Monitor fluid overload and discontinue as needed. Medical reconciliation done for nephrotoxic drugs. Hyponatremia: Secondary dehydration versus Legionella. We will continue to monitor. CODE STATUS: Patient states he would like to be full code. Cardiac diet. Lovenox for DVT prophylaxis. Famotidine for PUD prophylaxis. Transfer to floors. Attestations Medical Necessity Statement*: Requires further hospitalization for management of Legionella pneumonia, Serratia and Pseudomonas pneumonia. Time Spent in Patient Care: Greater than 35 minutes (>than 50% of time spent in counselling and/or direct pt care on unit) . 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
[2021-02-08] MEDS: enoxaparin 40 mg/0.4 mL Syringe SUBCUT (19:19)
--- NOTE | 2021-02-08 19:52 | PC.NURSE ---
PT WAS TRANSFERRED TO MS FLOOR FROM ICU, PT WAS VERY AGITATED AND WANTED TO SIGN OUT AMA, NOTIFIED AND CAME TO PTS ROOM. PT REMOVED HIS IV AND REFUSED ASSESSMENT. AND NURSES EDUC. PT ON RISKS AND BENEFITS OF HAVING IV AND IV MEDICATIONS. PT ALSO IN NON COMPLIANT WITH WEARING HIS NASAL CANNULA. PT EDUC. OF RISKS AND BENEFITS OF WEARING HIS OXYGEN.
[2021-02-09] VITALS (14 sets, daily range): BP systolic 118–168; BP diastolic 64–99; PULSE 86–109; RESP 16–22; TEMP 36.3–36.4; O2SAT 90–94
[2021-02-09] MEDS: ipratropium 0.5 mg/2.5 mL Neb INHALATION ×3 (03:04→14:09)
[2021-02-09] MEDS: levalbuterol 1.25 mg/3 mL Neb INHALATION ×3 (03:04→14:09)
[2021-02-09 05:09] LABS: Basophils % 0.2 %; Hematocrit 38.8 % (42.0-52.0); Hemoglobin 12.8 g/dL (11.7-16.6); Lymphocytes # 0.6 10^3/uL (0.8-4.8); Lymphocytes % 3.1 %; Mean Corpuscular Hemoglobin 31.1 pg (28.0-34.0); Mean Corpuscular Volume 94.2 fL (80-94); Mean Platelet Volume 11.1 fL (7.4-10.4); Monocytes # 0.9 10^3/uL (0.2-0.9); Monocytes % 4.8 %; Neutrophils # 17.96 10^3/uL (1.8-7.7); Nucleated Red Blood Cells % 0 %; Platelet Count 454 10^3/cmm (130-400); Red Blood Count 4.12 10^6/uL (4.1-5.3); Red Cell Distribution Width 13.2 % (12.1-15.1); White Blood Count 19.7 10^3/uL (4.0-10.0)
[2021-02-09 05:25] LABS: Alanine Aminotransferase 38 U/L (0-41); Albumin Level 3.1 g/dL (3.5-5.2); Alkaline Phosphatase 57 IU/L (40-130); Anion Gap 10.1 (5-19); Aspartate Amino Transferase 27 U/L (0-40); Blood Urea Nitrogen 42 mg/dL (8-23); Calcium 8.3 mg/dL (8.5-10.5); Carbon Dioxide 28 mmol/L (22-29); Chloride 101 mmol/L (98-107); Glomerular Filtration Rate 55.6 mL/min (90-130); Glucose 141 mg/dL (65-115); Osmolality Calculated 293 mOsm/kg (285-295); Potassium 4.1 mmol/L (3.5-5.1); Sodium 135 mmol/L (136-145); Total Bilirubin 0.3 mg/dL (0.15-1.2); Total Protein 6.1 g/dL (6.6-8.7)
[2021-02-09] MEDS: levoFLOXacin 750 mg Tablet PO (06:20)
[2021-02-09] MEDS: budesonide 0.5 mg/2 mL Neb INHALATION (07:45)
[2021-02-09] MEDS: ferrous gluconate 324 mg Tablet PO ×2 (10:18→18:29)
[2021-02-09] MEDS: metoprolol tartrate 25 mg Tablet 37.5 MG PO ×2 (10:18→20:12)
--- NOTE | 2021-02-09 14:43 | P.PN_ITS ---
Subjective Subjective: Interval history: No events overnight. Patient has remained comfortable. Examination saturating 94% on 4 L. During examination oxygen saturation done down to 3 L and he has been saturating more than 90%. Patient required IV line yesterday and since then he is not had any further IV. Done today patient is requesting to be kept for 1 more day as he is feeling weak. Denies any nausea vomiting, headache, dizziness. Vitals/I&O/Wt Last Vital Signs Temp 97.4 F L 02/09/21 11:04 Pulse 92 02/09/21 14:15 Resp 18 02/09/21 14:09 BP 154/91 02/09/21 11:04 Pulse Ox 94 02/09/21 14:09 02/08/21 02/09/21 02/09/21 22:59 06:59 14:59 Intake Total 1240 / 1790 380 / 380 Output Total Balance 1239 / 1789 -1787 380 / 380 Weight last 48 hrs Weight 95.436 kg Weight 95.481 kg Physical Exam Narrative: EXAM NARRATIVE: General: No acute distress, AO x3, mildly agitated HEENT: PERRLA, pupils bilaterally equal and reactive Chest: Bronchial breath sounds, rhonchi all over the lung bauman more in the right lower lobe with coarse crackles, good air entry bilaterally CVS: S1-S2 regular, no murmurs, no tachycardia, no gallops, no rubs Abdomen: Soft, nontender, no organomegaly, bowel sounds present Neuro: No focal deficits, no facial deformity, AO x3, power 5/5 in all limbs Data : 02/09/21 04:56 02/09/21 04:56 A&P Assessment and plan (1) SOB (shortness of breath): Status: Acute (2) Legionella pneumonia: Status: Acute (3) COPD (chronic obstructive pulmonary disease): Status: Acute (4) Hyponatremia: Status: Acute (5) ALTA (acute kidney injury): Status: Acute (6) Rhabdomyolysis: Status: Acute (7) HTN (hypertension): Status: Acute Additional A&P Information Shortness of breath: Secondary to Legionella pneumonia in setting of COPD exacerbation. Sputum culture growing Serratia and Pseudomonas. Urine Legionella antigen positive. Blood cultures have remained negative, MRSA swab results of awaited. COVID-19 PCR negative. Remove isolation precautions. Continue Levaquin 750 mg daily for a course of 14 days. Creatinine clearance appreciated. Stop Zosyn as both Serratia Pseudomonas and Legionella are susceptible to Levaquin. CT chest results appreciated. Continue with ipratropium every 6 hours and Xopenex every 6 hours, continue budesonide twice daily. Patient states he is allergic to Solu-Medrol with him being getting agitated on Solu-Medrol. Last dose today. Will avoid any further steroids. Wean oxygen supplementation keeping saturation over 90%. Patient does not have history of CAD in the past. Echocardiogram results appreciated with EF 56%, no regional wall motion abnormality, PASP of 43 mmHg. Hypertension: Goal blood pressure less than 140/90 mmHg. Continue with metoprolol 27.5 mg twice daily. Add patient on amlodipine 5 mg daily for now. Continue to hold the losartan because of ALTA. ALTA: Resolving down to 1.3. Has remained stable over 2 days. Did not receive IV fluids yesterday as he lost his IV. Medical reconciliation done for nephrotoxic drugs. Hyponatremia: Resolved. Secondary dehydration versus Legionella. We will continue to monitor. CODE STATUS: Patient states he would like to be full code. Cardiac diet. Lovenox for DVT prophylaxis. Famotidine for PUD prophylaxis. Discharge planning: If patient continues to remain stable we will plan to discharge in next 24 hours on course of oral antibiotics for next 14 days. Home O2 evaluation to be done prior to discharge. Most likely patient will require home oxygen on discharge. Attestations Medical Necessity Statement*: Requires further hospitalization for management of hypoxia because of Legionella and Pseudomonas pneumonia Time Spent in Patient Care: Greater than 35 minutes (>than 50% of time spent in counselling and/or direct pt care on unit) . 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
[2021-02-09] MEDS: amlodipine 5 mg Tablet PO (16:39)
[2021-02-09] MEDS: famotidine 20 mg Tablet PO (18:29)
[2021-02-09] MEDS: enoxaparin 40 mg/0.4 mL Syringe SUBCUT (18:29)
--- NOTE | 2021-02-09 20:13 | PC.NURSE ---
pt is very agitated when talking to pt. during report, day shift nurse stated pt had been compliant and in a pleasant mood all day. pt is complaining of shortness of breath and requesting he gets all of his normal medications. pt states he has a very strict medication regimen that he takes and everything is fine. pt is requesting he gets his pro air and symbacort inhalers and asking for his losartan. this nurse educated pt that his losartan was currently being held due to his kidneys having some damage from dehydration. pt states he wants its and will take any problems to his primary doctor.
--- NOTE | 2021-02-09 23:15 | PC.NURSE ---
Pt walked out into the hallway and wanted to relay the message to RT that she need not come up with his breathing treatments, that it would be frivolous. This nurse explained that it was in the pt's best interest to take the breathing treatments to help open his airways and make it easier to breath. Pt apologized for his behavior earlier and raising his voice to multiple staff members. Pt discussed that he was fine and did not require oxygen before he came in the hospital, before the pneumonia. This nurse educated pt that he came to the hospital because the pneumonia had worsened. The pt was unable to recall his pneumonia worsening. This nurse educated pt that it was slowly getting better. He was in the intensive care unit then transferred to the [facility] floor yesterday afternoon. Pt could not recall being in the ICU.
[2021-02-10] VITALS (10 sets, daily range): BP systolic 124–169; BP diastolic 67–85; PULSE 71–100; RESP 16–20; TEMP 36.3–36.6; O2SAT 85–97
--- NOTE | 2021-02-10 04:25 | PC.RESP ---
Pt has been very agitated with RT staff tonight. Pt stated that he was upset about not being able to be a part of his care plan, and that he didn't understand why our doctors were messing up his medication schedule. Pt refused to take scheduled treatments as ordered, but finally consented to taking his Albuterol and normal saline that was ordered PRN. After the last treatment, pt was sitting up in the chair watching baseball re-runs. Pt seemed more relaxed and comfortable at this time. No respiratory distress noted.
[2021-02-10] MEDS: levoFLOXacin 750 mg Tablet PO (05:24)
[2021-02-10] MEDS: ferrous gluconate 324 mg Tablet PO (08:22)
[2021-02-10] MEDS: metoprolol tartrate 25 mg Tablet 37.5 MG PO (08:22)
[2021-02-10] MEDS: amlodipine 5 mg Tablet PO (08:23)
[2021-02-10] MEDS: famotidine 20 mg Tablet PO (08:23)
[2021-02-10] MEDS: ipratropium 0.5 mg/2.5 mL Neb INHALATION (08:53)
[2021-02-10] MEDS: levalbuterol 1.25 mg/3 mL Neb INHALATION (08:53)
[2021-02-10] MEDS: budesonide 0.5 mg/2 mL Neb INHALATION (08:54)
--- NOTE | 2021-02-10 12:04 | PM.DCS ---
Discharge Providers Date of Admission: 02/06/21 14:15 Date of Discharge: February 10, 2021 Attending Provider at Admission: Rai Wheeler MD Attending Provider at Discharge: Rai Wheeler MD Primary Care Provider: Bishop Mancilla MD Diagnoses at Discharge Discharge Diagnosis (1) SOB (shortness of breath): Status: Acute (2) Legionella pneumonia: Status: Acute (3) COPD (chronic obstructive pulmonary disease): Status: Acute (4) Hyponatremia: Status: Acute (5) ALTA (acute kidney injury): Status: Acute (6) Rhabdomyolysis: Status: Acute (7) HTN (hypertension): Status: Acute Reason for Visit Reason for Visit: DEHYDRATION/WEAKNESS Hospital Course Hospital Course RIKKI IRWIN is a 65 year old male with past medical history of COPD, hypertension who presents to the ER today with worsening shortness of breath for over 1 week. Patient states he was in the ER last and was discharged home with oral Augmentin though her symptoms continue to worsen. He states he is been having difficulty in breathing at rest exacerbated on lying down, minimal movement, speaking. He states he has been having cough with mild expectoration. Denies any chest pain, nausea, vomiting, myalgias. He is not sure if he has been having fever though complaining of weakness. Patient has no history of recent COPD exacerbation. He is a former smoker stopped smoking 2 years ago. He denies any sick contact, COVID-19 immunization or known exposure to COVID-19 pneumonia. Blood work in the ER showed a white run of 18.8, hemoglobin of 12.4, platelet count of three hundred and eight, sodium of one twenty-three, chloride of ninety, creatinine of 1.4, BUN of twenty-four, CPK of 523,UA negative for any signs of UTI. Chest x-ray in the ER concerning for increasing right lower lobe airspace disease. Return to the hospital started on broad-spectrum antibiotics for pneumonia, inhalers and IV steroids for COPD exacerbation. CT chest was done just concerning for airspace disease in the right lower lobe. His urine Legionella was positive and eventually sputum culture grew Pseudomonas and Serratia. Antibiotics were changed as per the culture results. Patient responded well to the treatment and has been coming down on oxygen requirement regularly for last 2 days. During hospitalization patient did have few episodes of agitation which she thought was secondary to the use of steroids after which they were stopped. On admission he was also found to be in acute kidney injury because of dehydration hence his losartan was stopped and changed over to amlodipine. Discharge hemodynamic stable condition with advice to follow-up with his primary care provider within next 4 to 7 days, to continue levofloxacin for 11 more days to finish a course of 14 days. Physical Exam Narrative: EXAM NARRATIVE: General: No acute distress, AO x3, mildly agitated HEENT: PERRLA, pupils bilaterally equal and reactive Chest: Bronchial breath sounds, rhonchi all over the lung bauman more in the right lower lobe with coarse crackles, good air entry bilaterally CVS: S1-S2 regular, no murmurs, no tachycardia, no gallops, no rubs Abdomen: Soft, nontender, no organomegaly, bowel sounds present Neuro: No focal deficits, no facial deformity, AO x3, power 5/5 in all limbs Discharge Data Data Completed and Pending: Completed Studies During Hospitalization Category Date Time Status CT chest wo con 7 1250 Urgent Cat Scan 02/06/21 17:05 Completed XR chest 1V franki ble [id number] Stat Exams 02/06/21 13:06 Completed CV echo complete* [id number] Routine Ultrasound 02/07/21 05:00 Completed Pending at discharge Category Date Time Status Blood Culture Sta t Lab 02/06/21 13:40 Results Complete Blood Co unt w/Auto AM LABS Lab 02/10/21 04:00 Ordered Comprehensive Met abolic Panel AM LA BS Lab 02/10/21 04:00 Ordered Sputum Culture an d Gram Stain Stat Lab 02/06/21 13:57 Uncollected Vitals: Last Vital Signs Temp 97.6 F 02/10/21 08:00 Pulse 92 02/10/21 08:54 Resp 16 02/10/21 08:54 BP 124/77 02/10/21 08:00 Pulse Ox 85 L 02/10/21 09:31 Discharge Plan Discharge Patient Disposition: Home Condition: Stable Prescriptions: New amlodipine 5 mg Tablet 5 mg PO DAILY Qty: 30 RF: 0 levofloxacin 750 mg Tablet 750 mg PO DAILY@0600 Qty: 11 RF: 0 metoprolol tartrate 25 mg Tablet 37.5 mg PO BID@0900,2100 30 Days Qty: 90 RF: 0 ferrous gluconate 324 mg (37.5 mg iron) Tablet 324 mg PO BIDWM Qty: 60 RF: 0 Continued aspirin [Aspir-81] 81 mg Tablet,Delayed Release (Dr/Ec) 81 mg PO DAILY@05 RF: 0 albuterol sulfate [ProAir HFA] 90 mcg/actuation Hfa Aerosol Inhaler 2 puff INHALATION Q6H PRN (Reason: Shortness Of Breath) RF: 0 Spiriva with HandiHaler 18 mcg Capsule, W/Inhalation Device 1 cap INHALATION DAILY@05 Qty: 60 RF: 0 Symbicort 80-4.5 mcg/actuation Hfa Aerosol Inhaler 2 puff INHALATION BID@05,17 30 Days Qty: 30 RF: 0 Discontinued losartan 100 mg Tablet 100 mg PO DAILY@05 RF: 0 metoprolol tartrate 25 mg Tablet 12.5 mg PO Q6H RF: 0 amoxicillin-pot clavulanate [Augmentin] 875-125 mg tablet 1 tab PO BID Qty: 20 RF: 0 Discharge Orders: Discharge Order (Routine); Ordered 02/10/21 Ordered By: Rai Wheeler Other Ambulatory Orders: DME: Oxygen (Order) Location: None Selected Ordered By: Rai Wheeler Referrals: Bishop Mancilla MD [Primary Care Provider] - 4-7 days Discharge Diet: Cardiac Discharge Activity: Resume usual activity Patient Instructions: Opioid Safety Activity Restrictions/Additional Instructions: Please take levofloxacin which is an antibiotic for 10 more days to finish a 14-day course. Your dose of metoprolol has been increased to 37.5 mg twice daily. Losartan has been stopped in view of kidney injury and has been changed over to amlodipine 5 mg daily. Please follow-up with a primary care provider within next 4 to 7 days. Discharge Attestations Time Spent in Discharge Care*: greater than 30 min Specific Discharge Activities: educating patient, educating and/or supporting family/caregiver, discussing with mattress spring encaser/social workers/dc planners, documenting/other paperwork and evaluating patient/reviewing data Status at Discharge: Cognitive status at discharge: cognitively intact, Behavioral status at discharge: can be uncooperative, Functional status at discharge: independent ambulation Overall status at discharge: patient is progressing back to baseline Quality Metrics Clinical Quality Measures During this hospital stay, did patient experience: None Coding Level of Care Code Acute [facility] DC note Diagnoses SOB (shortness of breath) R06.02 Legionella pneumonia A48.1 COPD (chronic obstructive pulmonary disease) J44.9 Hyponatremia E87.1 ALTA (acute kidney injury) N17.9 Rhabdomyolysis M62.82 HTN (hypertension) I10
== END 2021-02-10 14:45 | disposition home or self-care (01) | DRG 178 ==
LOC: ER 12:35 → MEDSURG 15:27 → ICU 20:36 → MEDSURG 02-08 12:37
PROVIDERS: Admitting Provider Student in an Organized Health Care Education/Training Program; Emergency Provider Family Medicine; PCP Family Medicine; Visit Provider Student in an Organized Health Care Education/Training Program
DX: A48.1 Legionnaires' disease (principal); N17.9 Acute kidney failure, unspecified; E87.1 Hypo-osmolality and hyponatremia; M62.82 Rhabdomyolysis; J44.0 Chronic obstructive pulmonary disease with (acute) lower respiratory infection; J44.1 Chronic obstructive pulmonary disease with (acute) exacerbation; B96.89 Other specified bacterial agents as the cause of diseases classified elsewhere; E86.0 Dehydration; I10 Essential (primary) hypertension; Z87.891 Personal history of nicotine dependence; Z79.82 Long term (current) use of aspirin
CPT/HCPCS: 36415; 71045; 71250; 80053; 81001; 82550; 83036; 83540; 83550; 83605; 83735; 83880; 84145; 84443; 85025; 85378; 85610; 87040; 87070; 87077; 87086; 87186; 87205; 87426; 87449; 87635; 87641; 93005; 93306; 94640; 94664; 96365; 96367; 96372; 96375; 99291; J0456; J1650; J1956; J2543; J2920; J2930; J3370; J3490; J7030; J7040; J7050; J7611; J7614; J7626; J7644

== ENCOUNTER 2021-02-11 16:30 | Emergency (ER) | payer MEDICAID, SELFPAY ==
[2021-02-11 16:33] VITALS: BP 148/103; PULSE 80; RESP 18; TEMP 36.7; O2SAT 97; BMI 30.4
--- NOTE | 2021-02-11 16:45 | XRR_ITS ---
PROCEDURE INFORMATION: Exam: XR Chest Exam date and time: 02/11/2021 4:47 PM Age: 65 years old Clinical indication: Shortness of breath; Additional info: SOB TECHNIQUE: Imaging protocol: XR of the chest. Views: 1 view. COMPARISON: CT chest con [id number] 02/06/2021 6:10 PM FINDINGS: Lungs the previously seen: Right basilar airspace disease is improved. The lungs are mildly hyperinflated. Pleural spaces: Unremarkable. No pleural effusion. No pneumothorax. Heart/Mediastinum: The cardiac shadow is normal in size. Bones/joints: No acute abnormality. XR/XR chest 1V portable [id number] IMPRESSION: The previously seen right basilar airspace disease is improved.
[2021-02-11 16:46] VITALS: BP 148/102; PULSE 85; RESP 25; O2SAT 96
[2021-02-11 17:01] LABS: Basophils % 0.2 %; Eosinophils # 0.2 10^3/uL (0.0-0.8); Eosinophils % 1.3 %; Hematocrit 36.6 % (42.0-52.0); Hemoglobin 12.2 g/dL (11.7-16.6); Lymphocytes # 1.4 10^3/uL (0.8-4.8); Lymphocytes % 10.1 %; Mean Corpuscular HGB Conc 33.3 g/dL (30.0-36.0); Mean Corpuscular Hemoglobin 31.1 pg (28.0-34.0); Mean Corpuscular Volume 93.4 fL (80-94); Mean Platelet Volume 10.4 fL (7.4-10.4); Monocytes # 0.9 10^3/uL (0.2-0.9); Monocytes % 6.5 %; Neutrophils # 11.32 10^3/uL (1.8-7.7); Neutrophils % 79.7 %; Nucleated Red Blood Cells % 0 %; Platelet Count 575 10^3/cmm (130-400); Red Blood Count 3.92 10^6/uL (4.1-5.3); Red Cell Distribution Width 13.2 % (12.1-15.1); White Blood Count 14.2 10^3/uL (4.0-10.0)
--- NOTE | 2021-02-11 17:02 | ECG_ITS ---
[facility] Date: 2021-02-11 Pat Name: Peter Herrmann Department: Room: Gender: Male Solicitor Patent: : [id number] Requested By: Neo Mahajan Order Number: [id number] Reading MD: YISEL MAHAJAN Measurements Intervals Hurt Rate: 79 P: 55 OH: 132 QRS: 55 QRSD: 96 T: 53 QT: 403 QTc: 462 Interpretive Statements SINUS RHYTHM Compared to ECG 02/06/2021 18:31:41 Left bundle-branch block no longer present Electronically Signed On 02-11-2021 21:15:40 CDT by YISEL MAHAJAN [email or web address]
[2021-02-11 17:08] LABS: Lactate (Lactic Acid level) 1.1 mmol/L (0.5-2.2)
[2021-02-11 17:19] LABS: Alanine Aminotransferase 38 U/L (0-41); Albumin Level 3.4 g/dL (3.5-5.2); Alkaline Phosphatase 63 IU/L (40-130); Anion Gap 14.2 (5-19); Aspartate Amino Transferase 25 U/L (0-40); Blood Urea Nitrogen 21 mg/dL (8-23); Calcium 8.4 mg/dL (8.5-10.5); Carbon Dioxide 28 mmol/L (22-29); Chloride 97 mmol/L (98-107); Creatinine Clr Calc Pharmacy 90.6924; Globulin 2.8 g/dL (1.3-4.6); Glucose 97 mg/dL (65-115); NT Pro B Type Natriuretic Pept 374 pg/mL (0-125); Osmolality Calculated 283 mOsm/kg (285-295); Potassium 4.2 mmol/L (3.5-5.1); Sodium 135 mmol/L (136-145); Total Bilirubin 0.5 mg/dL (0.15-1.2); Total Protein 6.2 g/dL (6.6-8.7)
--- NOTE | 2021-02-11 17:23 | PC.PHAR ---
pt and pts family verified medications-hctz 50mg was filled on 01/12/21 30d/s-pt states that a er dr dced this medication-
[2021-02-11 17:26] LABS: INR 1.23 (0.8-1.2)
[2021-02-11 17:27] LABS: Partial Thromboplastin Time 28.6 SECONDS (23.9-36.7)
[2021-02-11 17:37] LABS: Troponin(5th) Baseline 24 ng/L (0-15)
--- NOTE | 2021-02-11 17:43 | ED_ITS ---
HPI - SOB/Dyspnea General: Chief Complaint: Shortness of Breath/Dyspnea Stated Complaint: SOB Time Seen by Provider: 02/11/21 16:44 History of Present Illness: HPI Narrative: 65-year-old male brought in by EMS with shortness of breath and lower extremity edema. Patient was discharged from this facility yesterday afternoon. Discharge diagnosis at that time was shortness of breath, Legionella pneumonia, COPD, hyponatremia, acute kidney injury/dehydration, rhabdomyolysis, hypertension. Patient states that when he left today he was feeling pretty good. He was sent home on O2 at 2 L. Prior to that he was not on oxygen. This morning at approximately 9 AM he started noticing his leg swelling. He denied any chest pain. No pain with inspiration. No abdominal or flank pain. He states he try to walk it off but that did not help. He states his legs and feet got more swollen. He has had very little cough. Patient states that he previously was on hydrochlorothiazide but he was not sent home on that medication. Patient states he had a diagnosis of CHF in 2018 when he lived in [place]. He denies any nausea or vomiting. No fever chills. No pain or burning with urination. Associated symptoms: Reports extremity pain; Deny abdominal pain, chest pain, dizziness, fever(s), lightheadedness, nausea, palpitations, syncope or vomiting Review of Systems Const: Reports: fatigue; Denies: fever(s), chills, body aches or change in appetite Eyes: Denies: change in vision Card: Reports: edema and swelling of feet/ankles; Denies: chest pain, palpitations, irregular heart rhythm, lightheadedness, syncope or pre-syncope Resp: Reports: dyspnea; Denies: productive cough, non-productive cough, wheezing, stridor or pain on inspiration GI: Denies: abdominal pain, nausea, vomiting, diarrhea, constipation or bloating : Denies: flank pain, difficulty urinating, dysuria, urinary frequency, urinary urgency or urinary hesitancy Musc: Reports: extremity pain and extremity swelling; Denies: neck pain or back pain Neuro: Reports: weakness in extremities and difficulty walking; Denies: numbness in extremities or dizziness [facility] ED PFSH: Medical History COPD (chronic obstructive pulmonary disease) COPD (chronic obstructive pulmonary disease) HTN (hypertension) Family History Other CAD (coronary artery disease) Hypertension Denies family history of Diabetes Social History Smoking and tobacco status: former smoker Quit status (tobacco): has quit using tobacco Alcohol intake: former Housing: House Physical Exam Const: COMMON NORMALS: no acute distress, patient oriented x3, alert and well nourished EXAM LIMITATIONS: no altered mental status GENERAL APPEARANCE: cooperative, well developed, ill appearing and appears older than stated age; not lethargic, not diaphoretic and not well hydrated NUTRITIONAL APPEARANCE: obese ORIENTATION/CONSCIOUSNESS: Yes awake, Yes oriented to person, Yes oriented to place and Yes oriented to time; not confused, not patient obtunded and not lethargic HENMT: COMMON NORMALS: normocephalic, atraumatic and hearing grossly normal bilaterally HEAD & SCALP: normal to inspection, normocephalic and atraumatic MOUTH: moist mucous membranes abnormal (Mildly dry oral mucosa) Eye: COMMON NORMALS: Equal, round and reactive pupils present, EOMs intact bilaterally, conjunctivae normal, no scleral icterus and no papilledema GENERAL EYE: appearance normal, both eyes and all related structures and normal light reflex CONJUNCTIVA: Yes conjunctivae normal PUPIL: Yes Equal, round and reactive pupils present DIRECT OPHTHALMOSCOPY: Yes normal light reflex and Yes no papilledema Neck/C-Spine: COMMON NORMALS: full ROM, supple, no meningeal signs, no JVD and Thyroid normal GENERAL: Yes normal visual inspection, Yes trachea midline, No anterior neck swelling and No tender THYROID: Thyroid normal Chest: COMMONS NORMALS: normal inspection of the chest and normal palpation of entire chest wall Resp: COMMON NORMALS: normal respiratory effort, No retractions, No use of accessory muscles and clear to auscultation bilaterally EFFORT & INSPECTION: Yes able to speak in complete sentences, Yes symmetric chest movement, No abnormal respiratory pattern, No tachypneic, No respiratory distress, No decreased respiratory effort, No labored, No grunting, No stridor, No Actively coughing, No retractions and No uses accessory muscles AUSCULTATION: clear to auscultation bilaterally, no crackles, no rales, no rhonchi, no wheezes, breath sounds present and diminished lung sounds Cardio: COMMON NORMALS: no JVD, regular rate, regular rhythm, No gallops present (Cardio), No clicks present (Cardio), No murmurs present (Cardio), No rub (Cardio) and Peripheral pulses 2+ throughout RATE: regular rate RHYTHM: regular rhythm HEART SOUNDS: no murmurs PERIPHERAL PULSES: Peripheral pulses 2+ throughout GI: COMMON NORMALS: Normal to inspection, nondistended, normoactive bowel sounds present, Soft to palpation, non-tender, No hepatosplenomegaly present, no masses and no bruits PALPATION: Yes Soft to palpation, No Tenderness to palpa tion present (GI), No Guarding due to palpation present (GI), No Rigid due to palpation and Yes No hepatosplenomegaly present : COMMON NORMALS: Yes no CVA tenderness BLADDER/KIDNEY EXAM: Yes no CVA tenderness Back/Pelvis: COMMON NORMALS: no CVA tenderness Extremity: COMMON NORMALS: no joint enlargement and no calf tenderness GENERAL: Yes amputation (Left great toe), Yes calf tenderness, Yes clubbing, No cyanosis, No deformity and Yes edema (Bilateral lower extremity +3 pitting edema) Neuro: COMMON NORMALS: patient oriented x3, moves all extremities and no focal motor deficits SENSORIUM/ORIENTATION: Yes alert, Yes oriented to person, Yes oriented to place, Yes oriented to time, No lethargic, No somnolent, No obtunded and No stuporous MENINGEAL SIGNS: Yes no meningeal signs SPEECH: speech normal GAIT: Yes Unable to assess gait Psych: COMMON NORMALS: mental status grossly normal, Normal thought process present, cooperative, normal affect, speech normal and activity/motor behavior normal ATTITUDE: Yes calm and Yes engaged ACTIVITY/MOTOR BEHAVIOR: Yes appropriate eye contact SPEECH: Yes normal speech THOUGHT PROCESS: Normal thought process present Course Vital Signs: Vital signs: Vital Signs Temperature 98.0 F 02/11/21 16:33 Pulse Rate 85 02/11/21 16:46 Respiratory Rate 25 H 02/11/21 16:46 Blood Pressure 148/102 02/11/21 16:46 Pulse Oximetry 96 02/11/21 16:46 MDM - SOB/Dyspnea Lab Data: Labs: Lab Results 02/11/21 02/11/21 02/11/21 Range/Units 16:30 16:30 16:30 WBC 14.2 H (4.0-10.0) 10^3/ uL RBC 3.92 L (4.1-5.3) 10^6/u L Hgb 12.2 (11.7-16.6) g/dL Hct 36.6 L (42.0-52.0) % MCV 93.4 (80-94) fL MCH 31.1 (28.0-34.0) pg MCHC 33.3 (30.0-36.0) g/dL RDW 13.2 (12.1-15.1) % Plt Count 575 H (130-400) 10^3/c mm MPV 10.4 (7.4-10.4) fL Neut % (Auto) 79.7 % Lymph % (Auto) 10.1 % [place] % (Auto) 6.5 % Eos % (Auto) 1.3 % Baso % (Auto) 0.2 % Neut # (Auto) 11.32 H (1.8-7.7) 10^3/u L Lymph # (Auto) 1.4 (0.8-4.8) 10^3/u L [place] # (Auto) 0.9 (0.2-0.9) 10^3/u L Eos # (Auto) 0.2 (0.0-0.8) 10^3/u L Baso # (Auto) 0.0 (0.0-0.1) 10^3/u L Nucleated RBC % (a uto) 0 % Nucleated RBCs # 0.0 /100WBC PT (12.1-14.9) SECO NDS INR (0.8-1.2) APTT (23.9-36.7) SECO NDS Sodium 135 L (136-145) mmol/L Potassium 4.2 (3.5-5.1) mmol/L Chloride 97 L (98-107) mmol/L Carbon Dioxide 28 (22-29) mmol/L Anion Gap 14.2 (5-19) BUN 21 (8-23) mg/dL Creatinine 0.9 (0.7-1.2) mg/dL GFR Calculation 85.0 L (90-130) mL/min Glucose 97 (65-115) mg/dL Calculated Osmolal ity 283 L (285-295) mOsm/k g Lactate 1.1 (0.5-2.2) mmol/L Calcium 8.4 L (8.5-10.5) mg/dL Magnesium 2.0 (1.7-2.3) mg/dL Total Bilirubin 0.5 (0.15-1.2) mg/dL AST 25 (0-40) U/L ALT 38 (0-41) U/L Alkaline Phosphata se 63 (40-130) IU/L Troponin T Baselin e (0-15) ng/L NT-Pro-B Natriuret Pep 374 H (0-125) pg/mL Total Protein 6.2 L (6.6-8.7) g/dL Albumin 3.4 L (3.5-5.2) g/dL Globulin 2.8 (1.3-4.6) g/dL 02/11/21 02/11/21 Range/Units 16:30 17:00 WBC (4.0-10.0) 10^3/ uL RBC (4.1-5.3) 10^6/u L Hgb (11.7-16.6) g/dL Hct (42.0-52.0) % MCV (80-94) fL MCH (28.0-34.0) pg MCHC (30.0-36.0) g/dL RDW (12.1-15.1) % Plt Count (130-400) 10^3/c mm MPV (7.4-10.4) fL Neut % (Auto) % Lymph % (Auto) % [place] % (Auto) % Eos % (Auto) % Baso % (Auto) % Neut # (Auto) (1.8-7.7) 10^3/u L Lymph # (Auto) (0.8-4.8) 10^3/u L [place] # (Auto) (0.2-0.9) 10^3/u L Eos # (Auto) (0.0-0.8) 10^3/u L Baso # (Auto) (0.0-0.1) 10^3/u L Nucleated RBC % (a uto) % Nucleated RBCs # /100WBC PT 15.80 H (12.1-14.9) SECO NDS INR 1.23 H (0.8-1.2) APTT 28.6 (23.9-36.7) SECO NDS Sodium (136-145) mmol/L Potassium (3.5-5.1) mmol/L Chloride (98-107) mmol/L Carbon Dioxide (22-29) mmol/L Anion Gap (5-19) BUN (8-23) mg/dL Creatinine (0.7-1.2) mg/dL GFR Calculation (90-130) mL/min Glucose (65-115) mg/dL Calculated Osmolal ity (285-295) mOsm/k g Lactate (0.5-2.2) mmol/L Calcium (8.5-10.5) mg/dL Magnesium (1.7-2.3) mg/dL Total Bilirubin (0.15-1.2) mg/dL AST (0-40) U/L ALT (0-41) U/L Alkaline Phosphata se (40-130) IU/L Troponin T Baselin e 24 H (0-15) ng/L NT-Pro-B Natriuret Pep (0-125) pg/mL Total Protein (6.6-8.7) g/dL Albumin (3.5-5.2) g/dL Globulin (1.3-4.6) g/dL Discharge Plan Discharge Prescriptions: No Action aspirin 81 mg Tablet,Delayed Release (Dr/Ec) 81 mg PO QAM RF: 0 albuterol sulfate [ProAir HFA] 90 mcg/actuation Hfa Aerosol Inhaler 2 puff INHALATION Q6H PRN (Reason: Shortness Of Breath) RF: 0 levofloxacin 750 mg Tablet 750 mg PO DAILY@0600 Qty: 11 RF: 0 metoprolol tartrate 25 mg Tablet 37.5 mg PO BID@0900,2100 30 Days Qty: 90 RF: 0 ferrous gluconate 324 mg (37.5 mg iron) Tablet 324 mg PO BIDWM Qty: 60 RF: 0 Spiriva with HandiHaler 18 mcg Capsule, W/Inhalation Device 1 cap INHALATION DAILY@05 Qty: 60 RF: 0 budesonide-formoterol [Symbicort] 80-4.5 mcg/actuation Hfa Aerosol Inhaler 2 puff INHALATION BID@05,17 30 Days Qty: 30 RF: 0 amlodipine 5 mg tablet 5 mg PO QAM RF: 0 Coding Level of Care Code ED Nurse Midwife for Kleber Shin
[2021-02-11 18:31] LABS: Add Urine Microscopic? NO; Charge for UA Resulting for Rev
[2021-02-11 18:54] LABS: Bilirubin Urine Neg (Negative); Blood Urine Neg (Negative); Glucose Urine UA Norm (Normal); Ketones Urine 1+ (Negative); Leukocyte Esterase Urine Negative (Negative); Nitrate Urine Negative (Negative); Protein Urine Neg (Negative); Urine Appearance Clear (CLEAR); Urine Color Yellow (Yellow); Urobilinogen Urine Norm (Negative); pH Urine 5 (5-7)
[2021-02-11 19:00] VITALS: BP 171/73; PULSE 75; RESP 14; O2SAT 94
--- NOTE | 2021-02-11 19:02 | ECG_ITS ---
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
[2021-02-11 19:27] LABS: Troponin 5 2HR 24.18 ng/L (0-15); Troponin 5 2HR Delta 0.18 ABS# (0-10)
[2021-02-11] MEDS: FUROsemide 10 mg/mL SDV 10mL 60 MG IVP (20:19)
[2021-02-11 20:25] VITALS: BP 158/88; PULSE 82; RESP 13; O2SAT 94
== END 2021-02-11 20:25 | disposition home or self-care (01) ==
PROVIDERS: Emergency Medicine; Emergency Provider Emergency Medicine; PCP Family Medicine
DX: R06.02 Shortness of breath (principal); Z79.82 Long term (current) use of aspirin; J44.9 Chronic obstructive pulmonary disease, unspecified; I10 Essential (primary) hypertension; Z87.891 Personal history of nicotine dependence
CPT/HCPCS: 71045; 80053; 81003; 83605; 83735; 83880; 84484; 85025; 85610; 85730; 87040; 93005; 96374; 99284; J1940

== ENCOUNTER → 2021-06-11 17:08 | Outpatient (BNVA) | payer MEDICAID, SELFPAY | PROVIDERS: PCP Family Medicine; Visit Provider Internal Medicine Cardiovascular Disease | DX: I11.0 Hypertensive heart disease with heart failure (principal); I50.9 Heart failure, unspecified | CPT/HCPCS: 80053; 83735; 83880 ==

== ENCOUNTER 2023-03-27 11:24 | Emergency (ER) | payer MEDICARE, MEDICAID, SELFPAY ==
[2023-03-27 11:33] VITALS: BP 122/63; PULSE 70; RESP 20; TEMP 36.4; O2SAT 93; BMI 34.4
--- NOTE | 2023-03-27 12:15 | ED_ITS ---
HPI - Wound/Laceration General: Chief Complaint: Wound/Laceration Stated Complaint: Right leg lac Time Seen by Provider: 03/27/23 11:41 History of Present Illness: Patient is a 67-year-old male comes to the ED with right leg laceration. Injury occurred just prior to arrival. Patient says he was closing his car door and it door hit his right leg causing laceration. They are able to slow the bleeding by putting a towel with some tape around wound. Patient did not clean lacerati on. His last tetanus was approximately 5 years ago. Patient is on blood thinners. Denies any other injury, fall or head trauma. Associated symptoms: Denies chills, fever(s), nausea or vomiting Review of Systems Const: Denies: fever(s), chills or fatigue Eyes: Denies: change in vision or eye discomfort ENMT: Denies: throat pain, odynophagia, nasal discharge or nasal congestion Card: Denies: chest pain, palpitations, edema, swelling of feet/ankles, dyspnea on exertion or orthopnea Resp: Denies: dyspnea, productive cough or non-productive cough GI: Denies: abdominal pain, nausea, vomiting, diarrhea, constipation or hematochezia : Denies: flank pain, difficulty urinating, dysuria or hematuria Musc: Denies: neck pain, back pain or extremity swelling Skin/Breast: Reports: new lesions (Laceration to right leg); Denies: rash Neuro: Denies: headache(s), numbness in extremities or weakness in extremities PFS ED PFSH: Medical History (Updated 03/27/23 @ 12:39 by IRAM Pappas) CHF (congestive heart failure), NYHA class III COPD (chronic obstructive pulmonary disease) COPD (chronic obstructive pulmonary disease) HTN (hypertension) LBBB (left bundle branch block) Family History Other Hypertension Denies family history of Diabetes CAD (coronary artery disease) Clotting disorder Dementia Chronic kidney disease (CKD) Suicide Anesthesia complication Bleeding disorder Lung disease Cancer Stroke Social History Smoking and tobacco status: former smoker Quit status (tobacco): has quit using tobacco Alcohol intake: former Housing: House Physical Exam Const: COMMON NORMALS: patient oriented x3 HENMT: COMMON NORMALS: normocephalic HEAD & SCALP: normocephalic MOUTH: Normal oral and palatal mucosa present THROAT: posterior oropharynx normal and uvula midline Neck/C-Spine: COMMON NORMALS: supple GENERAL: Yes normal visual inspection Resp: COMMON NORMALS: normal respiratory effort, No retractions, No use of accessory muscles and clear to auscultation bilaterally AUSCULTATION: clear to auscultation bilaterally Cardio: COMMON NORMALS: regular rate, regular rhythm, S1 normal heart sound present, S2 normal heart sound present, No gallops present (Cardio), No clicks present (Cardio), No murmurs present (Cardio) and Peripheral pulses 2+ throughout RATE: regular rate RHYTHM: regular rhythm HEART SOUNDS: S1 normal heart sound present and S2 normal heart sound present PERIPHERAL PU LSES: Peripheral pulses 2+ throughout GI: COMMON NORMALS: Normal to inspection, nondistended, normoactive bowel sounds present, Soft to palpation, non-tender and no masses PALPATION: Yes Soft to palpation : COMMON NORMALS: Yes no CVA tenderness BLADDER/KIDNEY EXAM: Yes no CVA tenderness Back/Pelvis: COMMON NORMALS: no CVA tenderness Extremity: NARRATIVE EXTREMITY EXAM: Right leg-lateral aspect of the leg around mid calf?superficial V-shaped laceration that is approximately 4 cm in length. No active bleeding noted. No contaminants or foreign bodies noted. GENERAL: Yes normal exam except as noted Neuro: COMMON NORMALS: patient oriented x3 GAIT: Yes Normal gait present Skin: GENERAL SKIN EXAM: dry skin Procedures Laceration Laceration 1: Site: lower extremity (Lateral aspect of right calf) Side (If applicable): right Size (cm): 4 Description: irregular (V shaped) Depth: simple, single layer Local Anesthetic: lidocaine 1% Amount of anesthesia used (mL): 6 Pre-repair: irrigated extensively (With normal saline) Skin layer closed with: nylon Size (cm): 4-0 Number of sutures: 10 Technique: simple, interrupted Course Vital Signs: Vital signs: Vital Signs Temperature 97.6 F 03/27/23 11:33 Pulse Rate 70 03/27/23 11:33 Respiratory Rate 20 H 03/27/23 11:33 Blood Pressure 122/63 03/27/23 11:33 Pulse Oximetry 93 03/27/23 11:33 Oxygen Delivery Me thod Room Air 03/27/23 11:33 [facility] - Wound/Laceration Medical Decision Making Patient is a 67-year-old male comes to the ED with right leg laceration. Injury occurred just prior to arrival. Patient says he was closing his car door and it door hit his right leg causing laceration. They are able to slow the bleeding by putting a towel with some tape around wound. Patient did not clean laceration. His last tetanus was approximately 5 years ago. Patient is on blood thinners. Denies any other injury, fall or head trauma.Right leg-lateral aspect of the leg around mid calf?superficial V-shaped laceration that is approximately 4 cm in length. No active bleeding noted. No contaminants or foreign bodies noted. Vitals are stable. Lidocaine 1% was used as local and laceration was irrigated extensively with normal saline. 10 sutures were then placed to close laceration. Patient tolerated procedure well and triple antibiotic ointment and bandage was then placed and patient was discharged home. Patient was told to have laceration site reevaluated in about 10 days and to have sutures removed at that time if it is healing well. Return to ED precautions given. He was sent home with a prophylactic prescription for Keflex. Return to ED precautions given. Patient understood and agreed with plan. Discharge Plan Discharge Patient Disposition: Home Clinical Impression: Laceration of leg Condition: Stable Prescriptions: New cephalexin 500 mg capsule 500 mg PO Q6H 5 Days Qty: 20 0RF No Action metoprolol tartrate 37.5 mg tablet 37.5 mg PO BID hydrochlorothiazide 25 mg tablet 25 mg PO DAILY aspirin 81 mg Tablet,Delayed Release (Dr/Ec) 81 mg PO QAM albuterol sulfate [ProAir HFA] 90 mcg/actuation Hfa Aerosol Inhaler 2 puff INHALATION Q6H PRN (Reason: Shortness Of Breath) Spiriva with HandiHaler 18 mcg Capsule, W/Inhalation Device 1 cap INHALATION DAILY@05 Qty: 60 0RF budesonide-formoterol [Symbicort] 80-4.5 mcg/actuation Hfa Aerosol Inhaler 2 puff INHALATION BID@05,17 30 Days Qty: 30 0RF amlodipine 5 mg tablet 5 mg PO QAM Discharge Orders: Discharge ED (Routine); Ordered 03/27/23 Ordered By: Sebas Bahena Referrals: Laurent,Bishop M, MD [Primary Care Provider] - Discharge Diet: Regular Discharge Activity: Increase activity as tolerated Patient Instructions: Laceration (DC) Activity Restrictions/Additional Instructions: Take full course of antibiotics as prescribed. Keep laceration site clean and dry daily. Do not submerge leg in any water such as [place] or [place] until fully healed.. Clean daily with soap and water and then apply thin layer of triple antibiotic ointment on it and cover with bandage. Watch for signs of infection such as redness, warmth, increased tenderness and puslike drainage. If you see the signs of infection return to the ED, urgent care or PCP for reevaluation. call your PCP to schedule a follow-up appointment for reevaluation and suture removal in about 10 days. Continue taking all home meds. Follow discharge plans as discussed. You can return to the ED if symptoms worsen. Coding Level of Care Code ED Chief Console Operator for Kleber Shin
[2023-03-27] MEDS: neomycin-poly-bacitracin oint 28 gm 1 APPLIC TOPICAL (13:19)
== END 2023-03-27 13:22 | disposition home or self-care (01) ==
PROVIDERS: Emergency Provider Physician Assistant; PCP Family Medicine
DX: S81.811A Laceration without foreign body, right lower leg, initial encounter (principal); W22.8XXA Striking against or struck by other objects, initial encounter
CPT/HCPCS: 12002; 99283

== ENCOUNTER 2023-04-10 09:06 | Outpatient (CLI) | payer MEDICARE, MEDICAID, SELFPAY ==
--- NOTE | 2023-04-10 09:16 | US_ITS ---
WS: [id number] RENAL ULTRASOUND HISTORY: VITAMIN D DEF, CHRONIC KIDNEY DISEASE, STAGE 3B, ANEMIA COMPARISON: None available. TECHNIQUE: 2-D and color Doppler imaging of the kidney submitted. Technically difficult due to body habitus. Right kidney: 10.0 cm x 4.4 cm x 4.7 cm. Cortex: 1.4 cm Normal echogenicity with no hydronephrosis or mass. Left kidney: 9.4 cm x 4.4 cm x 3.9 cm. Cortex: 1.1 cm Normal echogenicity with no hydronephrosis or mass. Aorta: Limited. Urinary Bladder: Normal distention. US/US renal BI* [id number] IMPRESSION: Technically difficult evaluation due to patient's body habitus. No abnormality is identified.
== END 2023-04-10 09:07 | disposition home or self-care (01) ==
PROVIDERS: PCP Family Medicine; Visit Provider Family Medicine
DX: E55.9 Vitamin D deficiency, unspecified (principal); N18.32 Chronic kidney disease, stage 3b; D64.9 Anemia, unspecified
CPT/HCPCS: 76770

== ENCOUNTER 2023-06-06 13:33 | Emergency (ER) | payer MEDICARE, MEDICAID, SELFPAY ==
[2023-06-06 13:39] VITALS: BP 133/85; PULSE 89; RESP 16; TEMP 36.7; O2SAT 97; BMI 36.0
[2023-06-06] MEDS: lidocaine-epi 1% 20 mL INJ 10 ML INJECTION (14:10)
--- NOTE | 2023-06-06 14:12 | PC.NURSE ---
LIDOCAINE ADMINISTERED BY IRAM CASTLE.
[2023-06-06 14:42] VITALS: BP 153/97; PULSE 68; O2SAT 98
--- NOTE | 2023-06-06 15:50 | ED_ITS ---
HPI - Extremity Problem General: Chief complaint: Extremity Injury, Lower Stated complaint: Left ankle lac Time Seen by Provider: 06/06/23 13:44 Source: patient Mode of arrival: ambulatory Limitations: no limitations History of Present Illness: Patient presents emergency department today for evaluation treatment of left lateral lower extremity wound. Patient states that while emptying his filter press tender head, he impacted the corner of the filter press tender head door which was open on the distal portion of his left lateral lower extremity. Patient reports significant bleeding and grabbed a towel from home, wrapping it tightly and holding it with bandaging tape. Patient denies any chronic anticoagulation therapy but, does take an aspirin daily. Patient does have issues with bilateral lower extremity swelling and has a prescription for hydrochlorothiazide and furosemide. Reports tetanus as UTD. Review of Systems General: Reports: 10 or more systems reviewed and unremarkable except in HPI and below PFSH ED PFSH: Medical History CHF (congestive heart failure), NYHA class III COPD (chronic obstructive pulmonary disease) COPD (chronic obstructive pulmonary disease) HTN (hypertension) LBBB (left bundle branch block) Family History Other Hypertension Denies family history of Diabetes CAD (coronary artery disease) Clotting disorder Dementia Chronic kidney disease (CKD) Suicide Anesthesia complication Bleeding disorder Lung disease Cancer Stroke Social History Smoking and tobacco status: former smoker Quit status (tobacco): has quit using tobacco Alcohol intake: former Housing: House Physical Exam Const: COMMON NORMALS: no acute distress, patient oriented x3 and alert HENMT: COMMON NORMALS: normocephalic, atraumatic and hearing grossly normal bilaterally HEAD & SCALP: normocephalic and atraumatic Eye: COMMON NORMALS: Equal, round and reactive pupils present, EOMs intact bilaterally and conjunctivae normal CONJUNCTIVA: Yes conjunctivae normal PUPIL: Yes Equal, round and reactive pupils present Neck/C-Spine: COMMON NORMALS: full ROM and no JVD Lymph: LYMPHATIC: no lymphadenopathy noted Resp: COMMON NORMALS: normal respiratory effort, No retractions and No use of accessory muscles Cardio: COMMON NORMALS: no JVD and regular rate RATE: regular rate Extremity: NARRATIVE EXTREMITY EXAM: Patient is independently ambulatory and weightbearing full range of motion to the extremities noted. Neuro: COMMON NORMALS: patient oriented x3 SENSORIUM/ORIENTATION: Yes alert Psych: COMMON NORMALS: mental status grossly normal, Normal thought process present, cooperative and normal affect THOUGHT PROCESS: Normal thought process present Skin: NARRATIVE SKIN EXAM: Patient has significant bilateral lower extremity edema with 1+ pitting equally bilaterally. No signs of cellulitis. Patient has an inverted V shaped laceration to the left lateral, lower extremity with minimal oozing of blood on exam. There is significant wound edge separation approximately 1.5 cm in some areas and a total length wound of approximately 5-1/2 cm. The tip of the V is extremely thin, curled, and bruised on the flap portion. Procedures Laceration Laceration 1: Site: lower extremity Side (If applicable): left (Lateral, lower) Size (cm): 5.5 Description: flap Depth: simple, single layer (Subcutaneous fat layer exposed.) Local Anesthetic: lidocaine 1% Amount of anesthesia used (mL): 10 Pre-repair: wound explored and irrigated extensively (Betadine and sterile saline) Skin layer closed with: nylon Size (cm): 3-0 Number of sutures: 12 Technique: simple, interrupted Subcutaneous layer closed with: vicryl Size: 4-0 Number of sutures: 1 Technique: running Course Vital Signs: Vital signs: Vital Signs Temperature 98.0 F 06/06/23 13:39 Pulse Rate 68 06/06/23 14:42 Respiratory Rate 16 06/06/23 13:39 Blood Pressure 153/97 06/06/23 14:42 Pulse Oximetry 98 06/06/23 14:42 Oxygen Delivery Me thod Room Air 06/06/23 13:39 MDM - Extremity (Nontraumatic) Medical Decision Making Patient had significant wound to the left lower leg. Bleeding is controlled and controlled continuously throughout the procedure with 1% lidocaine and epinephrine. Patient has so much edema there is third spacing of the wound and skin is extremely tight and wet. Given the significant wound edge separation and the edema in the area, I did place a running indwelling suture to better reapproximate the edges. 12 simple interrupted sutures help bring the wound edges closer and, for the most part wound edge approximation was extremely close. Discussed with patient the need to keep compression on the area to prevent excessive swelling which will most likely cause pulling of the skin through the sutures and reopening of the wound. Patient's wound was wrapped with a pressure dressing and Coban from the foot up to the lower leg to provide a graduated compression. Encouraged him to continue doing this the entire time he has the sutures in. He is also to keep his leg up and elevated. He is put on a prophylactic course of antibiotics given the depth of the wound and, for concerns of chronic illness and decreased ability to heal. He is to have his sutures removed in 10 days and discussed following up with primary care, urgent care, or back here in the ER. He is to be seen and evaluated sooner for any acute concerns of infection. Patient verbalized understanding and agreement to treatment plan. Differential Diagnosis Likely cellulitis and lower extremity edema (Laceration, skin tear); Unlikely herpes zoster or gout Discharge Plan Discharge Patient Disposition: Home Clinical Impression: Laceration of leg, Leg edema, left Condition: Stable Prescriptions: New cephalexin 500 mg capsule 500 mg PO TID 5 Days Qty: 15 0RF No Action aspirin 81 mg Tablet,Delayed Release (Dr/Ec) 81 mg PO QAM albuterol sulfate [ProAir HFA] 90 mcg/actuation Hfa Aerosol Inhaler 2 puff INHALATION Q6H PRN (Reason: Shortness Of Breath) Spiriva with HandiHaler 18 mcg Capsule, W/Inhalation Device 1 cap INHALATION DAILY@05 Qty: 60 0RF furosemide 40 mg tablet 40 mg PO DAILY hydrochlorothiazide 50 mg tablet 50 mg PO DAILY potassium chloride 10 mEq tablet extended release 10 meq PO DAILY amlodipine 10 mg tablet 10 mg PO DAILY metoprolol tartrate 50 mg tablet 100 mg PO TID Flonase 50 mcg/actuation Flushing,Suspension 1 spray INTRANASAL DAILY Rx Instructions: administer into each nostril Aleve 220 mg Capsule 440 mg PO BID PRN (Reason: Pain) Breztri Aerosphere 160-9-4.8 mcg/actuation Hfa Aerosol Inhaler 2 inh INHALATION BID Discharge Orders: Discharge ED (Routine); Ordered 06/06/23 Ordered By: Gemma Rock Referrals: Bishop Mancilla MD [Primary Care Provider] - Discharge Diet: Usual diet Discharge Activity: Limit activity as instructed Patient Instructions: Care For Your Stitches (ED) Activity Restrictions/Additional Instructions: Examination today showed a pretty significant laceration on your lower leg. It was full-thickness down into the subcutaneous fat layer and, with your increased edema-fluid on the legs, it can make it difficult for wounds to heal. For that reason, we did place in a layer of absorbable sutures into the deeper layers. You have 12 nonabsorbable sutures holding the top layers of the skin together. These need to be removed in 10 days. We will need to combat any swelling in the area has increased swelling will cause increased pressure on the sutures which could potentially pull through and reopen your wound. For that reason I do recommend keeping the area covered with a bandage and, wrapping with either Coban bandaging or Manolo wrap until sutures have been removed. I recommend wrapping the foot in addition to your ankle/lower leg to help keep fluid from the lower extremity. Also, avoid any prolonged standing or sitting-keep your leg up and elevated if you are seated to help prevent accumulation of swelling in the lower leg and ankle. I am giving you a prophylactic course of ant ibiotics to prevent infection as it was a deep cut however, you did allow me to deeply irrigate and clean the wound with Betadine prior to repair. Still, watch for any sudden redness of the area, inability to control swelling, drainage of a thick green or yellow material. If any of these agree should be seen and reevaluated. If in the future you were interested in compression socks to help decrease the amount of swelling in your lower legs, I do recommend purchasing some with graduated compression . You can purchase these at [email or web address] or [employer]. I do recommend a strength of 20 to 30mmHg as this seems to work well for swelling control. I personally use a website called [employer] and have been very satisfied with their compression socks. 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
== END 2023-06-06 16:01 | disposition home or self-care (01) ==
PROVIDERS: Emergency Provider Physician Assistant; PCP Family Medicine
DX: S81.812A Laceration without foreign body, left lower leg, initial encounter (principal); R60.0 Localized edema; Z79.82 Long term (current) use of aspirin; I11.0 Hypertensive heart disease with heart failure; I50.9 Heart failure, unspecified; J44.9 Chronic obstructive pulmonary disease, unspecified; Z87.891 Personal history of nicotine dependence; W22.8XXA Striking against or struck by other objects, initial encounter
CPT/HCPCS: 12032; 99283

== ENCOUNTER 2023-08-27 10:21 | Outpatient (CLI) | payer MEDICARE, MEDICAID, SELFPAY ==
--- NOTE | 2023-08-27 | US_ITS ---
WS: [id number] RENAL ULTRASOUND HISTORY: CKD STAGE 3 COMPARISON: 04/10/2023 TECHNIQUE: 2-D and color Doppler imaging of the kidney submitted. Right kidney: 9.5 cm x 5.1 cm x 3.8 cm. Cortex: 1.2 cm Normal echogenicity with no hydronephrosis or mass. Left kidney: 9.8 cm x 5.8 cm x 4.2 cm. Cortex: 1.1 cm Normal echogenicity with no hydronephrosis or mass. Aorta: Normal. Urinary Bladder: Minimally distended. There is diffuse bladder wall thickening which may be due to th e underdistention. No mass. IMPRESSION: 1. No significant renal atrophy no hydronephrosis. 2. Kidneys are very similar in appearance to the prior study from 04/10/2023.
== END 2023-08-27 10:22 | disposition home or self-care (01) ==
PROVIDERS: PCP Family Medicine; Visit Provider Internal Medicine Nephrology
DX: N18.32 Chronic kidney disease, stage 3b (principal)
CPT/HCPCS: 76770

== ENCOUNTER → 2023-10-23 10:00 | Outpatient (BNVA) | payer MEDICARE, MEDICAID, SELFPAY | PROVIDERS: PCP Family Medicine; Visit Provider Family Medicine | DX: E55.9 Vitamin D deficiency, unspecified (principal); N18.9 Chronic kidney disease, unspecified; E83.42 Hypomagnesemia; E83.39 Other disorders of phosphorus metabolism; Z12.5 Encounter for screening for malignant neoplasm of prostate; I50.22 Chronic systolic (congestive) heart failure; I10 Essential (primary) hypertension; M79.89 Other specified soft tissue disorders; Z76.89 Persons encountering health services in other specified circumstances; J44.9 Chronic obstructive pulmonary disease, unspecified | CPT/HCPCS: 80053; 80061; 82306; 83735; 83880; 84100; 84443; 84550; 85025; G0103 ==

== ENCOUNTER 2023-11-11 04:44 | Inpatient (IN) | payer MEDICARE, MEDICAID, SELFPAY ==
[2023-11-11] VITALS (68 sets, daily range): BP systolic 63–132; BP diastolic 45–108; PULSE 69–96; RESP 10–29; TEMP 35.5–37; O2SAT 92–100; BMI 34.4; BMI 36.7
--- NOTE | 2023-11-11 04:56 | ECG_ITS ---
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 Measurements Intervals [place] Rate: 71 P: 56 UT: 154 QRS: 25 QRSD: 101 T: 49 QT: 410 QTc: 447 Interpretive Statements SINUS RHYTHM Compared to ECG 02/11/2021 18:53:57 No significant changes Electronically Signed On 11-11-2023 19:49:16 [employer] by Len Merida M.D. [id number] f
--- NOTE | 2023-11-11 04:56 | CTR_ITS ---
PROCEDURE INFORMATION: Exam: CT Head Without Contrast Exam date and time: 11/11/2023 5:26 AM Age: 67 years old Clinical indication: Alteration of consciousness; Syncope and collapse; Patient HX: Sudden syncope at 0100 this morning; Additional info: Fall TECHNIQUE: Imaging protocol: Computed tomography of the head without contrast. Radiation optimization: All CT scans at this facility use at least one of these dose optimization techniques: automated exposure control; mA and/or kV adjustment per patient size (includes targeted exams where dose is matched to clinical indication); or iterative reconstruction. COMPARISON: No relevant prior studies available. RADIATION DOSE METRICS: Total DLP (mGy-cm): 1137 FINDINGS: Brain: No acute intracranial hemorrhage or abnormal intracranial mass effect is identified. Multifocal regions of decreased attenuation in the cerebral white matter and in the basal ganglia compatible with chronic microvascular ischemic disease, greater than anticipated for age. Please correlate clinically regarding any underlying predisposing condition, e.g. hypertension, diabetes, etc.. There are no subdural collections. Cerebral ventricles: Size within normal range for age. No midline shift. Paranasal sinuses: Visualized portions of paranasal sinuses are well aerated. Mastoid air cells: Visualized portions of mastoid sinuses are not opacified. Bones/joints: No obvious fracture or aggressive destructive lesion involving the cranium. Soft tissues: Other than as stated above, no obvious acute abnormality. CT/CT head wo con* [id number] IMPRESSION: 1. No acute intracranial hemorrhage or mass effect identified. 2. Chronic microvascular ischemic disease greater than anticipated for age.
--- NOTE | 2023-11-11 04:56 | XRR_ITS ---
PROCEDURE INFORMATION: Exam: XR Chest Exam date and time: 11/11/2023 5:48 AM Age: 67 years old Clinical indication: Other: Syncope; Additional info: Weakness TECHNIQUE: Imaging protocol: Radiologic exam of the chest. Views: 1 view. COMPARISON: CR XR chest 1V portable [id number] 02/11/2021 5:01 PM FINDINGS: Lungs: No acute infiltrate identified. Pleural spaces: Smooth pleural-based density in the right lower hemithorax laterally may relate to chronic pleural scarring related to the extensive right lower lobe pneumonia that was present in 2020. No significant pleural fluid detected. Pleural scarring blunts the left costophrenic angle, similar to previous exam. Heart/Mediastinum: Heart size is stable compared to the prior study. No pulmonary vascular congestion. Bones/joints: No obvious acute abnormality. XR/XR chest 1V portable [id number] IMPRESSION: No acute cardiopulmonary abnormality detected on AP portable chest radiograph.
--- NOTE | 2023-11-11 05:05 | ED_ITS ---
Documented by User: Chris Mederos DO 11/11/23 05:19 HPI - Fall 2 General: Chief Complaint: Syncope Stated Complaint: syncope/fall Time Seen by Provider: 11/11/23 04:55 History of Present Illness: Patient brought in by EMS for unwitnessed fall. Patient does not remember falling. Patient was found in the floor by grandson who went and got his dad to help him about the floor. Patient does not complain of any pain at this time. Patient has multiple skin tears all over her extremities. Patient over the last couple days has been increasing weakness. Patient's been on Bactrim for approximately 5 days for cellulitis for his right lower extremity. Patient's son says he normally gets a little goofy and weak when he is on Bactrim but this is more than normal. EMS stated when they arrived there and they set the patient up really quick that his eyes rolled in the back of his head and he passed right out. Patient's blood pressure has been soft. Upon arrival here he was 86/45. Patient's heart rate was 75 bpm. Patient is alert and oriented and can answer all questions. It is unknown if patient had a loss of consciousness or passed out when he fell. Patient cannot tell us anything about the fall except deny pain or injuries. Patient is on 81 mg aspirin, Patient has dark tarry stools for the last several days. Review of Systems 2 General: Reports: 10 or more systems reviewed and unremarkable except in HPI and below PFSH ED 2 PFSH: Medical History (Updated 11/13/23 @ 06:26 by Jose Hardy DO) CHF (congestive heart failure), NYHA class III LBBB (left bundle branch block) COPD (chronic obstructive pulmonary disease) COPD (chronic obstructive pulmonary disease) Wears 2 L of oxygen chronically HTN (hypertension) Family History Other Hypertension Denies family history of Diabetes CAD (coronary artery disease) Clotting disorder Dementia Chronic kidney disease (CKD) Suicide Anesthesia complication Bleeding disorder Lung disease Cancer Stroke Social History Smoking and tobacco/nicotine status: former use of tobacco/nicotine Quit status (tobacco/nicotine): has quit using Alcohol intake: former Substance/Drug Use: current Other substance/drug use details: No inhalation. Housing: House Physical Exam 2 Const: COMMON NORMALS: average body habitus, patient oriented x3, no limitations, alert and well nourished HENMT: COMMON NORMALS: normocephalic, atraumatic, hearing grossly normal bilaterally, external ears normal, Normal external nose present, moist oral mucous membranes and oropharynx normal HEAD & SCALP: normocephalic and atraumatic NOSE: Normal external nose present EXTERNAL EAR: Yes external ears normal Eye: COMMON NORMALS: Equal, round and reactive pupils present, EOMs intact bilaterally, conjunctivae normal and no scleral icterus CONJUNCTIVA: Yes conjunctivae normal PUPIL: Yes Equal, round and reactive pupils present Neck/C-Spine: COMMON NORMALS: full ROM, no lymphadenopathy, supple, no meningeal signs, no JVD and Thyroid normal THYROID: Thyroid normal Chest: COMMONS NORMALS: normal inspection of the chest and normal palpation of entire chest wall Resp: COMMON NORMALS: normal respiratory effort, No retractions, No use of accessory muscles and clear to auscultation bilaterally (Decreased bilaterally) AUSCULTATION: clear to auscultation bilaterally (Decreased bilaterally) Cardio: COMMON NORMALS: no JVD, regular rate, regular rhythm, S1 normal heart sound present, S2 normal heart sound present, No gallops present (Cardio), No clicks present (Cardio) and No murmurs present (Cardio) RATE: regular rate RHYTHM: regular rhythm HEART SOUNDS: S1 normal heart sound present and S2 normal heart sound present GI: COMMON NORMALS: Normal to inspection, nondistended, normoactive bowel sounds present, Soft to palpation, non-tender, No hepatosplenomegaly present and no masses PALPATION: Yes Soft to palpation and Yes No hepatosplenomegaly present OTHER: Positive appearing umbilical hernia Extremity: OTHER: 1+ pitting edema bilateral lower extremi ties Neuro: COMMON NORMALS: patient oriented x3 SENSORIUM/ORIENTATION: Yes alert MENINGEAL SIGNS: Yes no meningeal signs Skin: NARRATIVE SKIN EXAM: Multiple skin tears over bilateral lower extremities and bilateral upper extremities some bandage to some not. Bleeding is controlled. Course 2 Vital Signs: Vital signs: Vital Signs Temperature 97.2 F L 11/12/23 22:00 Pulse Rate 108 H 11/13/23 04:00 Respiratory Rate 20 H 11/13/23 04:00 Blood Pressure 121/75 11/13/23 04:00 Pulse Oximetry 92 11/13/23 04:00 Oxygen Delivery Me thod Nasal Cannula 11/13/23 04:00 Oxygen Flow Rate 5 11/13/23 04:00 MDM - Fall Medical Decision Making Patient a bowel movement during nursing treating his wounds. Nursing said it was awful dark it was guaiac positive. Medical Records I reviewed the patient's medical records. Lab Data I reviewed the patient's lab results. 11/13/23 02:10 11/12/23 07:[address] 11/11/23 04:56 IMPRESSION: 1. No acute intracranial hemorrhage or mass effect identified. 2. Chronic microvascular ischemic disease greater than anticipated for age. Laboratory Results WBC 26.89 10^3/uL (3.29-11.43) H 11/11/23 05:15 RBC 2.41 10^6/uL (3.85-5.65) L 11/11/23 05:15 Hgb 6.40 g/dL (11.27-16.99) L* 11/11/23 05:15 Hct 20.2 % (37-53) L* 11/11/23 05:15 MCV 83.8 fl (82-101) 11/11/23 05:15 MCH 26.6 pg (27-33) L 11/11/23 05:15 MCHC 31.7 g/dL (30-55) 11/11/23 05:15 RDW 15.7 % (12.1-15.1) H 11/11/23 05:15 Plt Count 717 10^3/cmm (157-399) H 11/11/23 05:15 MPV 10.7 fL (7.4-10.4) H 11/11/23 05:15 Lymph % (Auto) Not Reportable 11/11/23 05:15 Dupage % (Auto) Not Reportable 11/11/23 05:15 Lymph # (Auto) Not Reportable 11/11/23 05:15 Dupage # (Auto) Not Reportable 11/11/23 05:15 Total Counted 100 (0-100) 11/11/23 05:15 Atypical Lymphs % Not Reportable 11/11/23 05:15 Segmented Neutrophils 86 % 11/11/23 05:15 Abs Segm Neuts (Man) 23.1 10/cmm (1.6-7.1) H 11/11/23 05:15 Band Neutrophils Not Reportable 11/11/23 05:15 Lymphocytes (Manual) 7 % 11/11/23 05:15 Monocytes (Manual) 3.0 % 11/11/23 05:15 Absolute Monocytes 0.8 10^3/cmm (0.1-0.6) H 11/11/23 05:15 Eosinophils (Manual) 1 % 11/11/23 05:15 Absolute Eosinophils 0.3 10^3/cmm (0.0-0.7) 11/11/23 05:15 Basophils (Manual) 0.0 % 11/11/23 05:15 Absolute Basophils 0.0 10^3/cmm (0.0-0.2) 11/11/23 05:15 Myelocytes 3.0 % 11/11/23 05:15 Hypersegmented Polys 1+ 11/11/23 05:15 Platelet Estimate Increased (Normal) 11/11/23 05:15 Giant Platelets Trace 11/11/23 05:15 Anisocytosis 1+ H 11/11/23 05:15 PT 17.20 SECONDS (12.1-14.9) H 11/11/23 05:15 INR 1.35 (0.8-1.2) H 11/11/23 05:15 Specimen Type Arterial 11/11/23 05:56 Sample Site Radial, right 11/11/23 05:56 ABG pH 7.31 (7.35-7.45) L 11/11/23 05:56 ABG pCO2 35.0 mmHg (35-45) 11/11/23 05:56 ABG pO2 106.0 mmHg (80.0-100.0) H 11/11/23 05:56 ABG HCO3 17.4 mmol/L (22-26) L 11/11/23 05:56 ABG O2 Saturation 98.8 11/11/23 05:56 ABG Base Excess -8.2 mmol/L (-2.0-2.0) L 11/11/23 05:56 Adam Test Pos 11/11/23 05:56 A-a O2 Gradient Not Reportable 11/11/23 05:56 Hematocrit 17.9 % (42-52) L 11/11/23 05:56 Hgb O2 Saturation 96.8 % (95-100) 11/11/23 05:56 Carboxyhemoglobin 1.6 %THgb (0.4-20.1) 11/11/23 05:56 Methemoglobin 0.5 % (0.4-1.5) 11/11/23 05:56 Total Hemoglobin 5.8 g/dL (14-18) L 11/11/23 05:56 Sodium 126.0 mmol/L (131-143) L 11/11/23 05:56 Potassium 5.1 mmol/L (3.5-5.0) H 11/11/23 05:56 Glucose 135.0 mg/dL (70-115) H 11/11/23 05:56 Ionized Calcium 1.0 mmol/L (1.1-1.4) L 11/11/23 05:56 O2 Delivery Device Nc 11/11/23 05:56 O2 Liters/Min 4.0 % 11/11/23 05:56 Commercial Illustrator ID [email or web address] 11/11/23 05:56 Sodium 124 mmol/L (136-145) L 11/11/23 05:15 Potassium 5.4 mmol/L (3.5-5.1) H 11/11/23 05:15 Chloride 84 mmol/L (98-107) L 11/11/23 05:15 Carbon Dioxide 20 mmol/L (22-29) L 11/11/23 05:15 Anion Gap 25.4 (5-19) H 11/11/23 05:15 BUN 124 mg/dL (8-23) H* D 11/11/23 05:15 Creatinine 4.7 mg/dL (0.7-1.2) H 11/11/23 05:15 GFR Calculation 12.5 mL/min (90-130) L 11/11/23 05:15 Glucose 151 mg/dL (65-115) H 11/11/23 05:15 Calculated Osmolality 301 mOsm/kg (285-295) H 11/11/23 05:15 Lactic Acid 6.3 mmol/L (0.5-2.2) H* 11/11/23 05:15 Lactic Acid (Sepsis) 6.1 mmol/L (0.5-2.2) H* 11/11/23 07:33 Calcium 8.3 mg/dL (8.5-10.5) L 11/11/23 05:15 Phosphorus 8.6 mg/dL (2.5-4.5) H* 11/11/23 05:15 Magnesium 3.3 mg/dL (1.7-2.3) H 11/11/23 05:15 Total Bilirubin 0.2 mg/dL (0.15-1.2) 11/11/23 05:15 AST 19 U/L (0-40) 11/11/23 05:15 ALT 17 U/L (0-41) 11/11/23 05:15 Alkaline Phosphatase 137 U/L (40-130) H 11/11/23 05:15 Creatine Kinase 97 U/L (39-308) 11/11/23 05:15 Creatine Kinase 101 U/L (39-308) 11/11/23 05:15 Troponin T Baseline 22 ng/L (0-15) H 11/11/23 05:15 Troponin T 120 Minute 17.77 ng/L (0-15) H 11/11/23 06:56 Delta Troponin T -4.23 ABS# (0-10) L 11/11/23 06:56 Troponin T Hi Sens 6Hr 18.45 ng/L (0-15) H 11/11/23 11:04 Troponin T Hi Sens 6Hr Delta -3.55 ng/L (0-12) L 11/11/23 11:04 Total Protein 5.5 g/dL (6.6-8.7) L 11/11/23 05:15 Albumin 2.6 g/dL (3.5-5.2) L 11/11/23 05:15 Globulin 2.9 g/dL (1.3-4.6) 11/11/23 05:15 Procalcitonin 0.81 ng/mL (0-0.5) H 11/11/23 05:15 Random Cortisol 25.73 ug/dL (2.47-19.5) H 11/11/23 05:15 Urine Color Yellow (Yellow) 11/11/23 06:15 Urine Appearance Clear (CLEAR) 11/11/23 06:15 Urine pH 5 (5-7) 11/11/23 06:15 Ur Specific [place] 1.015 (1.005-1.030) 11/11/23 06:15 Urine Protein Neg (Negative) 11/11/23 06:15 Urine Glucose (UA) Norm (Normal) 11/11/23 06:15 Urine Ketones Negative (Negative) 11/11/23 06:15 Urine Blood 2+ (Negative) H 11/11/23 06:15 Urine Nitrate Negative (Negative) 11/11/23 06:15 Urine Bilirubin Neg (Negative) 11/11/23 06:15 Urine Urobilinogen Neg mg/dL (Negative) 11/11/23 06:15 Ur Leukocyte Esterase 1+ (Negative) H 11/11/23 06:15 Urine RBC Rare /hpf (0-2) 11/11/23 06:15 Urine WBC 5-10 /hpf (0-5) H 11/11/23 06:15 Ur Squamous Epith Cells 0-4 /hpf (0-5) H 11/11/23 06:15 Ur Transition Epith Cell 0-4 /hpf 11/11/23 06:15 Amorphous Sediment Not Reportable 11/11/23 06:15 Urine Bacteria Trace /hpf (NONE) 11/11/23 06:15 Urine Mucus Trace /hpf 11/11/23 06:15 Urine Yeast Trace /hpf 11/11/23 06:15 Blood Type AB Negative 11/11/23 05:44 Rho(D) Type Negative 11/11/23 05:44 Antibody Screen Negative 11/11/23 05:44 Crossmatch See Detail 11/11/23 05:44 All radiology interpretation(s) finalized by discharge EKG Data EKG 1: I personally reviewed and interpreted this EKG as follows: EKG interpretation date: 11/11/23 EKG interpretation time: 05:03 Prior EKG tracings: available for review Interpretation: EKG shows ventricular rate 71 beats minute, MS interval 154, QRS duration 101, QTc of 432, sinus rhythm, Discharge Plan Discharge Patient Disposition: Admitted As Inpatient Admit Provider: Lila Judge Clinical Impression: Sepsis, ALTA (acute kidney injury), Acute encephalopathy, Anemia associated with acute blood loss, CHF (congestive heart failure), NYHA class III, Cellulitis, Hypothermia, Hyperkalemia, Diverticulitis Condition: Stable Sign Out Sign Out Data: Patient Sign Out occurred on 11/11/23 at 06:21. Patient's care was discussed, and care was transferred from Chris Mederos DO to Jose Hardy DO. Coding Level of Care Code ED Colon Therapist for Chg Fwd Documented by User: Jose Hardy DO 11/13/23 06:26 HPI - Fall 2 General: Chief Complaint: Syncope Stated Complaint: syncope/fall Time Seen by Provider: 11/11/23 04:55 PFSH ED 2 PFSH: Medical History (Updated 11/13/23 @ 06:26 by Jose Hardy DO) CHF (congestive heart failure), NYHA class III LBBB (left bundle branch block) COPD (chronic obstructive pulmonary disease) COPD (chronic obstructive pulmonary disease) Wears 2 L of oxygen chronically HTN (hypertension) Family History Other Hypertension Denies family history of Diabetes CAD (coronary artery disease) Clotting disorder Dementia Chronic kidney disease (CKD) Suicide Anesthesia complication Bleeding disorder Lung disease Cancer Stroke Social History Smoking and tobacco/nicotine status: former use of tobacco/nicotine Quit status (tobacco/nicotine): has quit using Alcohol intake: former Substance/Drug Use: current Other substance/drug use details: No inhalation. Housing: House Course 2 Vital Signs: Vital signs: Vital Signs Temperature 97.2 F L 11/12/23 22:00 Pulse Rate 108 H 11/13/23 04:00 Respiratory Rate 20 H 11/13/23 04:00 Blood Pressure 121/75 11/13/23 04:00 Pulse Oximetry 92 11/13/23 04:00 Oxygen Delivery Me thod Nasal Cannula 11/13/23 04:00 Oxygen Flow Rate 5 11/13/23 04:00 MDM - Fall Medical Decision Making Patient a bowel movement during nursing treating his wounds. Nursing said it was awful dark it was guaiac positive. November 11, 2023 6:15 AM Care assumed at change of shift. Patient is septic with leukocytosis lactic acidosis and hypotension. In addition he is having a GI bleed and has significant acute kidney injury with mild hyperkalemia. Cultures done start Vanco and Zosyn sepsis fluid bolus ordered. Blood is already been ordered for transfusion for his significant anemia. Reviewing his chart he was seen on October 23, at that time his Lasix was increased to 40 mg twice daily he was seen back again on November 05 with right leg swelling his Lasix was increased to 80 mg twice daily and he was also started on Bactrim for a right lower leg cellulitis with swelling. Initially wanting to cover patient he had blood pressure greater than 100 however because of his history of heart failure and significant acute anemia from GI bleed sepsis fluid bolus was ordered but titrated over time. He is hypothermic and is being actively warmed. His acute kidney injury I believe it is from combination of Lasix and Bactrim. The wound ulcers on his right leg do not appear to be actively infected but some of them are tunneled imaging has been ordered to further evaluate for possible abscess. CT of the abdomen showed mild diverticulitis but not likely the cause of his sepsis at this point no sign of perforation. Central line placed and pressors titrated to maintain MAP of greater than 65. Lab Data 11/13/23 02:10 11/12/23 07:[address] 11/11/23 04:56 IMPRESSION: 1. No acute intracranial hemorrhage or mass effect identified. 2. Chronic microvascular ischemic disease greater than anticipated for age. Laboratory Results WBC 26.89 10^3/uL (3.29-11.43) H 11/11/23 05:15 RBC 2.41 10^6/uL (3.85-5.65) L 11/11/23 05:15 Hgb 6.40 g/dL (11.27-16.99) L* 11/11/23 05:15 Hct 20.2 % (37-53) L* 11/11/23 05:15 MCV 83.8 fl (82-101) 11/11/23 05:15 MCH 26.6 pg (27-33) L 11/11/23 05:15 MCHC 31.7 g/dL (30-55) 11/11/23 05:15 RDW 15.7 % (12.1-15.1) H 11/11/23 05:15 Plt Count 717 10^3/cmm (157-399) H 11/11/23 05:15 MPV 10.7 fL (7.4-10.4) H 11/11/23 05:15 Lymph % (Auto) Not Reportable 11/11/23 05:15 Dupage % (Auto) Not Reportable 11/11/23 05:15 Lymph # (Auto) Not Reportable 11/11/23 05:15 Dupage # (Auto) Not Reportable 11/11/23 05:15 Total Counted 100 (0-100) 11/11/23 05:15 Atypical Lymphs % Not Reportable 11/11/23 05:15 Segmented Neutrophils 86 % 11/11/23 05:15 Abs Segm Neuts (Man) 23.1 10/cmm (1.6-7.1) H 11/11/23 05:15 Band Neutrophils Not Reportable 11/11/23 05:15 Lymphocytes (Manual) 7 % 11/11/23 05:15 Monocytes (Manual) 3.0 % 11/11/23 05:15 Absolute Monocytes 0.8 10^3/cmm (0.1-0.6) H 11/11/23 05:15 Eosinophils (Manual) 1 % 11/11/23 05:15 Absolute Eosinophils 0.3 10^3/cmm (0.0-0.7) 11/11/23 05:15 Basophils (Manual) 0.0 % 11/11/23 05:15 Absolute Basophils 0.0 10^3/cmm (0.0-0.2) 11/11/23 05:15 Myelocytes 3.0 % 11/11/23 05:15 Hypersegmented Polys 1+ 11/11/23 05:15 Platelet Estimate Increased (Normal) 11/11/23 05:15 Giant Platelets Trace 11/11/23 05:15 Anisocytosis 1+ H 11/11/23 05:15 PT 17.20 SECONDS (12.1-14.9) H 11/11/23 05:15 INR 1.35 (0.8-1.2) H 11/11/23 05:15 Specimen Type Arterial 11/11/23 05:56 Sample Site Radial, right 11/11/23 05:56 ABG pH 7.31 (7.35-7.45) L 11/11/23 05:56 ABG pCO2 35.0 mmHg (35-45) 11/11/23 05:56 ABG pO2 106.0 mmHg (80.0-100.0) H 11/11/23 05:56 ABG HCO3 17.4 mmol/L (22-26) L 11/11/23 05:56 ABG O2 Saturation 98.8 11/11/23 05:56 ABG Base Excess -8.2 mmol/L (-2.0-2.0) L 11/11/23 05:56 Adam Test Pos 11/11/23 05:56 A-a O2 Gradient Not Reportable 11/11/23 05:56 Hematocrit 17.9 % (42-52) L 11/11/23 05:56 Hgb O2 Saturation 96.8 % (95-100) 11/11/23 05:56 Carboxyhemoglobin 1.6 %THgb (0.4-20.1) 11/11/23 05:56 Methemoglobin 0.5 % (0.4-1.5) 11/11/23 05:56 Total Hemoglobin 5.8 g/dL (14-18) L 11/11/23 05:56 Sodium 126.0 mmol/L (131-143) L 11/11/23 05:56 Potassium 5.1 mmol/L (3.5-5.0) H 11/11/23 05:56 Glucose 135.0 mg/dL (70-115) H 11/11/23 05:56 Ionized Calcium 1.0 mmol/L (1.1-1.4) L 11/11/23 05:56 O2 Delivery Device Nc 11/11/23 05:56 O2 Liters/Min 4.0 % 11/11/23 05:56 Commercial Illustrator ID [email or web address] 11/11/23 05:56 Sodium 124 mmol/L (136-145) L 11/11/23 05:15 Potassium 5.4 mmol/L (3.5-5.1) H 11/11/23 05:15 Chloride 84 mmol/L (98-107) L 11/11/23 05:15 Carbon Dioxide 20 mmol/L (22-29) L 11/11/23 05:15 Anion Gap 25.4 (5-19) H 11/11/23 05:15 BUN 124 mg/dL (8-23) H* D 11/11/23 05:15 Creatinine 4.7 mg/dL (0.7-1.2) H 11/11/23 05:15 GFR Calculation 12.5 mL/min (90-130) L 11/11/23 05:15 Glucose 151 mg/dL (65-115) H 11/11/23 05:15 Calculated Osmolality 301 mOsm/kg (285-295) H 11/11/23 05:15 Lactic Acid 6.3 mmol/L (0.5-2.2) H* 11/11/23 05:15 Lactic Acid (Sepsis) 6.1 mmol/L (0.5-2.2) H* 11/11/23 07:33 Calcium 8.3 mg/dL (8.5-10.5) L 11/11/23 05:15 Phosphorus 8.6 mg/dL (2.5-4.5) H* 11/11/23 05:15 Magnesium 3.3 mg/dL (1.7-2.3) H 11/11/23 05:15 Total Bilirubin 0.2 mg/dL (0.15-1.2) 11/11/23 05:15 AST 19 U/L (0-40) 11/11/23 05:15 ALT 17 U/L (0-41) 11/11/23 05:15 Alkaline Phosphatase 137 U/L (40-130) H 11/11/23 05:15 Creatine Kinase 97 U/L (39-308) 11/11/23 05:15 Creatine Kinase 101 U/L (39-308) 11/11/23 05:15 Troponin T Baseline 22 ng/L (0-15) H 11/11/23 05:15 Troponin T 120 Minute 17.77 ng/L (0-15) H 11/11/23 06:56 Delta Troponin T -4.23 ABS# (0-10) L 11/11/23 06:56 Troponin T Hi Sens 6Hr 18.45 ng/L (0-15) H 11/11/23 11:04 Troponin T Hi Sens 6Hr Delta -3.55 ng/L (0-12) L 11/11/23 11:04 Total Protein 5.5 g/dL (6.6-8.7) L 11/11/23 05:15 Albumin 2.6 g/dL (3.5-5.2) L 11/11/23 05:15 Globulin 2.9 g/dL (1.3-4.6) 11/11/23 05:15 Procalcitonin 0.81 ng/mL (0-0.5) H 11/11/23 05:15 Random Cortisol 25.73 ug/dL (2.47-19.5) H 11/11/23 05:15 Urine Color Yellow (Yellow) 11/11/23 06:15 Urine Appearance Clear (CLEAR) 11/11/23 06:15 Urine pH 5 (5-7) 11/11/23 06:15 Ur Specific [place] 1.015 (1.005-1.030) 11/11/23 06:15 Urine Protein Neg (Negative) 11/11/23 06:15 Urine Glucose (UA) Norm (Normal) 11/11/23 06:15 Urine Ketones Negative (Negative) 11/11/23 06:15 Urine Blood 2+ (Negative) H 11/11/23 06:15 Urine Nitrate Negative (Negative) 11/11/23 06:15 Urine Bilirubin Neg (Negative) 11/11/23 06:15 Urine Urobilinogen Neg mg/dL (Negative) 11/11/23 06:15 Ur Leukocyte Esterase 1+ (Negative) H 11/11/23 06:15 Urine RBC Rare /hpf (0-2) 11/11/23 06:15 Urine WBC 5-10 /hpf (0-5) H 11/11/23 06:15 Ur Squamous Epith Cells 0-4 /hpf (0-5) H 11/11/23 06:15 Ur Transition Epith Cell 0-4 /hpf 11/11/23 06:15 Amorphous Sediment Not Reportable 11/11/23 06:15 Urine Bacteria Trace /hpf (NONE) 11/11/23 06:15 Urine Mucus Trace /hpf 11/11/23 06:15 Urine Yeast Trace /hpf 11/11/23 06:15 Blood Type AB Negative 11/11/23 05:44 Rho(D) Type Negative 11/11/23 05:44 Antibody Screen Negative 11/11/23 05:44 Crossmatch See Detail 11/11/23 05:44 Critical Care Time 2 Critical Care Time: Critical Care Time: Yes Total Critical Care Time: 120 Attestation: The high probability of a clinically significant, sudden or life threatening deterioration of the patient's cardiovascular respiratory hematologic system(s) required my full and direct attention, intervention and personal management. The critical care time is as shown. This time is in addition to time spent performing any reported procedures but includes the following: [x] Data and vital sign review and interpretation [x] Patient assessment, examination and intervention [x] Documentation [x] Medication orders and management Discharge Plan Discharge Patient Disposition: Admitted As Inpatient Admit Provider: Lila Judge Clinical Impression: Sepsis, ALTA (acute kidney injury), Acute encephalopathy, Anemia associated with acute blood loss, CHF (congestive heart failure), NYHA class III, Cellulitis, Hypothermia, Hyperkalemia, Diverticulitis Condition: Stable Sign Out Sign Out Data: Patient Sign Out occurred on 11/11/23 at 06:21. Patient's care was discussed, and care was transferred from Chris Mederos DO to Jose Hardy DO. Coding Level of Care Code ED Colon Therapist for Kleber Shin
[2023-11-11 05:29] LABS: Mean Corpuscular HGB Conc 31.7 g/dL (30-55); Mean Corpuscular Hemoglobin 26.6 pg (27-33); Mean Corpuscular Volume 83.8 fl (82-101); Mean Platelet Volume 10.7 fL (7.4-10.4); Platelet Count 717 10^3/cmm (157-399); Red Blood Count 2.41 10^6/uL (3.85-5.65); Red Cell Distribution Width 15.7 % (12.1-15.1); White Blood Count 26.89 10^3/uL (3.29-11.43)
[2023-11-11] MEDS: sodium chloride 0.9% 1,000 ML 999 ML IV (05:30)
--- NOTE | 2023-11-11 05:33 | PC.NURSE ---
pt had a positive guaiac stool sample
[2023-11-11 05:38] LABS: INR 1.35 (0.8-1.2)
[2023-11-11 05:44] LABS: Troponin(5th) Baseline 22 ng/L (0-15)
[2023-11-11 05:45] LABS: Alanine Aminotransferase 17 U/L (0-41); Albumin Level 2.6 g/dL (3.5-5.2); Alkaline Phosphatase 137 U/L (40-130); Anion Gap 25.4 (5-19); Aspartate Amino Transferase 19 U/L (0-40); Calcium 8.3 mg/dL (8.5-10.5); Carbon Dioxide 20 mmol/L (22-29); Chloride 84 mmol/L (98-107); Globulin 2.9 g/dL (1.3-4.6); Glomerular Filtration Rate 12.5 mL/min (90-130); Glucose 151 mg/dL (65-115); Magnesium 3.3 mg/dL (1.7-2.3); Potassium 5.4 mmol/L (3.5-5.1); Sodium 124 mmol/L (136-145); Total Bilirubin 0.2 mg/dL (0.15-1.2); Total Protein 5.5 g/dL (6.6-8.7)
[2023-11-11 05:53] LABS: Osmolality Calculated 301 mOsm/kg (285-295)
[2023-11-11 05:54] LABS: Blood Urea Nitrogen 124 mg/dL (8-23); Phosphorus 8.6 mg/dL (2.5-4.5)
[2023-11-11 06:07] LABS: Slide Review Slide Review Perform
[2023-11-11 06:08] LABS: Hematocrit 20.2 % (37-53)
[2023-11-11 06:09] LABS: Absolute Eosinophils 0.3 10^3/cmm (0.0-0.7); Absolute Segmented Neutrophil 23.1 10/cmm (1.6-7.1); Anisocytosis 1+; Eosinophils 1 %; Giant Platelets Trace; Hypersegmented Polys 1+; Lymphocytes 7 %; Monocytes Absolute 0.8 10^3/cmm (0.1-0.6); Platelet Estimate Increased (Normal); Segmented Neutrophils 86 %; Total Cells Counted 100 (0-100)
[2023-11-11 06:11] LABS: ABG PH Result 7.31 (7.35-7.45); Arterial Blood Gas Hematocrit 17.9 % (42-52); Base Excess ABG -8.2 mmol/L (-2.0-2.0); Blood Gas Allen Test Pos; Blood Gas Sample Site Radial, right; Blood Gas Sample Type Arterial; Carboxyhemoglobin 1.6 %THgb (0.4-20.1); HCO3 ABG 17.4 mmol/L (22-26); HGB O2 Sat 96.8 % (95-100); Methemoglobin 0.5 % (0.4-1.5); Oxygen Device NC; Oxygen Saturation ABG 98.8; Potassium Level - ABG 5.1 mmol/L (3.5-5.0); Total Hemoglobin 5.8 g/dL (14-18)
--- NOTE | 2023-11-11 06:15 | PC.NURSE ---
Marion britt placed on the pt at this time
[2023-11-11 06:21] LABS: Lactic Sepsis W/Reflex 6.3 mmol/L (0.5-2.2)
[2023-11-11 06:25] LABS: Procalcitonin 0.81 ng/mL (0-0.5)
--- NOTE | 2023-11-11 06:29 | CT_ITS ---
WS: [id number] CT ABDOMEN PELVIS TECHNIQUE: Noncontrast CT of the abdomen and pelvis with coronal and sagittal reformatted images. CLINICAL INFORMATION: Abdominal pain COMPARISON: None. DLP: 997.[address] scans at [facility] [place] use at least one of these dose optimization techniques: automated e xposure control; mA and/or kV adjustment per patient size (includes targeted exams where dose is matc hed to clinical indication); or iterative reconstruction. FINDINGS: Love catheter. Sigmoid diverticulosis. Mild diffuse thickening of the sigmoid colon tiny amount of i nduration in the distal sigmoid colon compatible with acute diverticulitis. No evidence of drainable abscess or fluid collection. Extensive diverticuli LEFT colon. Slight atelectasis lung bases. Noncontrast liver is normal. Small splenic granulomas. Normal GE junct ion. Air-fluid level in the stomach. Distended stomach with food products. Suspected increased attenu ation blood products in the stomach considering clinical history. Cholelithiasis. No gallbladder wall thickening or pericholecystic fluid. Mild fatty atrophy of the p ancreas. Adrenal glands are normal. Normal caliber abdominal aorta. Aortic calcification. Fat-contain ing umbilical hernia. IMPRESSION: 1. Uncomplicated acute diverticulitis with mild inflammatory stranding. No abscess 2. Fluid distended stomach with air-fluid level. Suspected high attenuation blood products in the st omach considering clinical history. 3. Love catheter. 4. Cholelithiasis. No gallbladder wall thickening or pericholecystic fluid. Notified Jose Hardy DO at 11/11/2023 10:25 AM.
--- NOTE | 2023-11-11 06:32 | USCV_ITS ---
Peter Herrmann Age: 67 Gender: M : 1955 Exam Date: 11/11/2023 07:35 Ordering Phys: Jose Hardy DO Technologist: Rashel Tapia Exam Location: [facility] [place]_ Indication: Rt leg pain and swelling PROCEDURES: Venous duplex imaging was performed in only the right lower extremity. The following venous structures were evaluated: common femoral vein, profunda vein, proximal portion of the greater saphenous vein, superficial femoral vein, and the popliteal vein. In addition, the posterior tibial and peroneal trunk were evaluated. FINDINGS: Normal 2-D Doppler and augmentation and compressibility throughout the lower extremity venous structures. Additional imaging through the proximal calf veins also reveals no thrombus. Limited evaluation of the greater saphenous vein is patent with no thrombus. CONCLUSIONS No evidence of right lower extremity DVT. Emiliano Menezes MD (Electronically Signed) Final Date: 11 November 2023 09:54 S
[2023-11-11 06:38] LABS: Add Urine Microscopic? YES; Bilirubin Urine Neg (Negative); Blood Urine 2+ (Negative); Glucose Urine UA Norm (Normal); Ketones Urine Negative (Negative); Leukocyte Esterase Urine 1+ (Negative); Nitrate Urine Negative (Negative); Protein Urine Neg (Negative); Specific Gravity, Urine 1.015 (1.005-1.030); Urine Appearance Clear (CLEAR); Urine Color Yellow (Yellow); Urobilinogen Urine Neg (Negative); pH Urine 5 (5-7)
[2023-11-11 06:42] LABS: RBC Urine RARE /hpf (0-2); Squamous Epithelial Cell Urine 0-4 /hpf (0-5)
[2023-11-11 06:43] LABS: Add Urine Culture? Yes; Bacteria Urine TRACE /hpf; Mucus Urine TRACE /hpf; Transitional Epi Cells Urine 0-4 /hpf
--- NOTE | 2023-11-11 06:56 | ECG_ITS ---
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 Measurements Intervals [place] Rate: 74 P: 46 WV: 172 QRS: 25 QRSD: 102 T: 70 QT: 419 QTc: 465 Interpretive Statements SINUS RHYTHM ST ELEVATION, CONSIDER INFERIOR INJURY [MARKED ST ELEVATION W/O NORMALLY INFLECTED T-WAVE IN II/aVF] ACUTE IL Compared to ECG 11/11/2023 05:03:08 ST (T wave) deviation now present Myocardial infarct finding now present Electronically Signed On 11-11-2023 20:13:46 FLIGHT ENGINEER by Len Merida M.D. [email or web address]
[2023-11-11 07:19] LABS: Troponin 5 2HR 17.77 ng/L (0-15)
--- NOTE | 2023-11-11 07:24 | XR_ITS ---
WS: [id number] XR chest 1V portable [id number] REASON FOR EXAM: Post Central Line Placement FINDINGS: Since the examination of 5:49 a.m., a right internal jugular central venous line has been placed. The tip is in the distal superior vena cava just above the right atrium in proper position for use. No other interval change compared to the previous examination. Chronic reticular interstitial lung opacities right lung base. No new findings. IMPRESSION: Stable chest with properly positioned right internal jugular central venous line in the interim.
[2023-11-11 07:25] LABS: Troponin 5 2HR Delta -4.23 ABS# (0-10)
[2023-11-11 07:32] LABS: Creatine Phosphokinase 97 U/L (39-308)
[2023-11-11] MEDS: calcium chloride 10% Syr 10 mL 1 GM IVP (07:35)
[2023-11-11] MEDS: sodium bicarbonate 8.4% 1 mEq/mL 50mL Syr 50 MEQ IVP (07:40)
[2023-11-11] MEDS: piperacillin-tazobactam 3.375 GM in sodium chloride 0.9% (plus) 50 ML IV ×2 (07:42→21:20)
[2023-11-11] MEDS: vancomycin 1,000 MG in sodium chloride 0.9% 250 ML 250 MG IV (07:44)
[2023-11-11] MEDS: pantoprazole 40 mg SDV 80 MG IVP (07:44)
[2023-11-11 07:50] LABS: Reflex Lactate Order REFLEX LACTIC ORDERD
[2023-11-11] MEDS: norepinephrine 4 MG/250 ML BAG 7.5 MG IV (07:52)
--- NOTE | 2023-11-11 07:55 | CT_ITS ---
WS: [id number] NONCONTRAST CT RIGHT LOWER EXTREMITY INDICATION: RIGHT lower leg cellulitis with ulceration TECHNIQUE: Noncontrast CT RIGHT lower extremity with coronal and sagittal reformatted images FINDINGS: Skin thickening RIGHT lower extremity extending to the ankle with subcutaneous edema compat ible with cellulitis. No evidence of drainable abscess or fluid collection. No evidence of osteomyeli tis. Soft tissue ulceration visualized in the RIGHT lower extremity laterally at the distal fibula. U nderlying subcutaneous edema. No underlying abscess or osteomyelitis. IMPRESSION: 1. Skin thickening and subcutaneous edema RIGHT lower extremity compatible with cellulitis extending to the ankle. 2. No evidence of drainable abscess or fluid collection. 3. No evidence of osteomyelitis. 4. RIGHT lower extremity ulceration with subcutaneous air and edema at the level of the distal fibul a. No abscess in this area.
[2023-11-11 08:12] LABS: Lactic Acid level (Lactate) 6.1 mmol/L (0.5-2.2)
[2023-11-11 08:14] LABS: Cortisol Random 25.73 ug/dL (2.47-19.5)
--- NOTE | 2023-11-11 10:56 | ECG_ITS ---
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 Measurements Intervals Golden Rate: 71 P: 51 ME: 173 QRS: 22 QRSD: 101 T: 73 QT: 414 QTc: 452 Interpretive Statements SINUS RHYTHM Compared to ECG 11/11/2023 07:14:53 ST (T wave) deviation no longer present Myocardial infarct finding no longer present Electronically Signed On 11-11-2023 20:13:51 INVESTMENT ADVISOR by Len Merida M.D. [id number]
--- NOTE | 2023-11-11 11:18 | PC.NURSE ---
Pt arrives to ICU from ER. Levophed infusing into right IJ CVL at 8 mcg/min. Sight shortness of breath noted. Multiple wounds noted.
--- NOTE | 2023-11-11 11:21 | PC.NURSE ---
Right lower leg with cellulitis has multiple slough covered ulcers. His upper extremities and around both knees have multiple skin tears. Ski tears cleansed and attempt to rooll skin back out, all covered with Optifoam. Right lower leg ,ulcers open to air , leg elevated.
[2023-11-11] MEDS: sodium chloride 0.9% 100 mL Bag 50 ML IV (11:29)
[2023-11-11 11:38] LABS: Troponin 5 6HR 18.45 ng/L (0-15)
[2023-11-11 11:40] LABS: Troponin 5 6HR Delta -3.55 ng/L (0-12)
--- NOTE | 2023-11-11 12:00 | PC.NURSE ---
Transfusion VS: some documented on TAR, see the VS flow sheet for all the VS.
--- NOTE | 2023-11-11 13:05 | P.HP_ITS ---
Providers/Chief Complaint 2 Admitting Physician: Jadiel Judge MD Primary Care Provider: Jason Harper DO Chief Complaint: syncope/fall History of Present Illness Peter Herrmann is a 67 year old male presenting to the emergency department via EMS.. He has been confused over the last week. There has been some concern that he had had at least a low-grade temperature. He was found down by his grandson and could have been down for several hours. He has had some darker stools than usual. He had recently been on Bactrim for a right lower extremity cellulitis. Patient cannot give much history when I interviewed him. His son showed up and corollary history was obtained from him. Patient currently denies any shortness of breath, chest discomfort. He denies any bright red blood in his stools or vomiting any blood. In the emergency department he received some calcium chloride, a sepsis bolus, norepinephrine, Zosyn and vancomycin, and sodium bicarb. Review of Systems 2 General: Reports: 10 or more systems reviewed and unremarkable except in HPI and below Card: Denies: chest pain Resp: Denies: dyspnea GI: Reports: melena Medications/Allergies Home Medications Medication Instructions Recorded Confirmed Last Taken Type albuterol sulfate 90 mcg/actuation 2 puff inhalation Q6H PRN 02/01/21 11/11/23 02/11/21 History aerosol inhaler (ProAir HFA) Shortness Of Breath aspirin 81 mg tablet,delayed 81 mg PO QAM 02/01/21 11/11/23 11/10/23 History release amlodipine 10 mg tablet 10 mg PO DAILY 06/06/23 11/11/23 11/10/23 History budesonide 160 mcg-glycopyr 9 2 inh inhalation BID 06/06/23 11/11/23 11/10/23 History mcg-formot 4.8 mcg/actuation HFA inhaler (Breztri Aerosphere) fluticasone propionate 50 1 spray intranasal DAILY 06/06/23 11/11/23 06/06/23 History mcg/actuation nasal spray,suspension naproxen sodium 220 mg capsule 440 mg PO BID PRN Pain 06/06/23 11/11/23 Unknown History (Aleve) furosemide 40 mg tablet 40 mg PO BID 10/23/23 11/11/23 11/10/23 History metoprolol tartrate 50 mg tablet 50 mg PO TID 10/23/23 11/11/23 11/10/23 History potassium chloride 10 mEq 10 meq PO BID 10/23/23 11/11/23 11/10/23 History tablet,extended release Allergies Allergy/AdvReac Type Severity Reaction Status Date / Time acetaminophen [From Tylenol] Allergy Unknown Verified 11/11/23 05:16 Opioids - Morphine Analogues Allergy ADR-Halluci Verified 11/11/23 05:16 nating PFSH Acute 2 PFSH: Medical History (Updated 11/11/23 @ 13:17 by Jadiel Judge MD) CHF (congestive heart failure), NYHA class III LBBB (left bundle branch block) COPD (chronic obstructive pulmonary disease) COPD (chronic obstructive pulmonary disease) Wears 2 L of oxygen chronically HTN (hypertension) Family History Other Hypertension Denies family history of Diabetes CAD (coronary artery disease) Clotting disorder Dementia Chronic kidney disease (CKD) Suicide Anesthesia complication Bleeding disorder Lung disease Cancer Stroke Social History Smoking and tobacco/nicotine status: former use of tobacco/nicotine Quit status (tobacco/nicotine): has quit using Alcohol intake: former Substance/Drug Use: current Other substance/drug use details: No inhalation. Housing: House Vitals/I&O/Wt Last Vital Signs Temp 96.4 F L 11/11/23 11:43 Pulse 80 11/11/23 11:43 Resp 14 11/11/23 11:43 BP 117/58 11/11/23 11:43 Pulse Ox 97 11/11/23 11:43 O2 Del Method Nasal Cannula 11/11/23 06:15 O2 Flow Rate 3 11/11/23 06:00 11/10/23 11/11/23 11/11/23 22:59 06:59 14:59 Intake Total 1000 / 1000 3653.45 / 3653.45 Balance 1000 / 1000 3653.45 / 3653.45 Weight last 48 hrs Weight 99.79 kg Physical Exam 2 Narrative: General exam is an ill-appearing white male, with borderline blood pressure on significant amount of norepinephrine who is slow to respond, but can talk in complete sentences. He is hypothermic in the emergency department. HEENT: Atraumatic and normocephalic. Oropharynx with dry mucous membranes Neck is supple Cardiovascular regular rate and rhythm Lungs clear but with diminished breath sounds and coarse breath sounds at the bases Abdomen is soft. No obvious tenderness. Umbilical hernia is noted which is easily reducible. exam deferred, Love noted Extremities no cyanosis clubbing. There is extensive ulceration to the right lower extremity, with at least 1 tunneled wound and greater than 5 ulcers. Distal cap refill appears intact. Pulses are somewhat difficult to feel. There are several skin tears on his arms, particularly his right arm as well as his left leg. Skin see findings above Neuro no obvious focal deficits, although mentation appears somewhat slowed. Urinary Catheter Management: Love: Cath Placed During This Visit: yes Reason for Continuing Indwelling Catheter: Other Urinary Catheter Date of Insertion: 11/11/23 Urinary Catheter Time of Insertion: 06:18 Sepsis: Is patient septic: Yes Focused sepsis exam performed: Yes Date exam was performed: 11/11/23 Time exam was performed: 08:55 Data 11/11/23 05:15 11/11/23 05:15 Other Labs: INR is 1.35 ABG demonstrates pH 7.31, pCO2 35, pO2 106 on 4 L Lactic acid 6.3 and repeat 6.1 Calcium 8.3 with a albumin of 2.6 Phosphorus 8.6, magnesium 3.3. LFTs normal with exception of alk phos 137 Troponin 22 with repeat of 17 Random cortisol 25 Procalcitonin 0.8 5-10 whites rare reds negative protein in his urine Chest x-ray no infiltrate, right IJ line appears appropriately placed. I reviewed this as well Venous duplex no DVT Abdomen pelvis CT without contrast demonstrated fluid distended stomach, concern for acute diverticulitis with mild inflammatory stranding and no abscess, and cholelithiasis Head CT no acute findings Lower extremity CT demonstrates cellulitis, ankle edema, no abscess or obvious osteomyelitis. Some subcutaneous air and edema at the level of the distal fibula A&P Assessment and plan (1) Sepsis: Patient presents with sepsis presumably from his right lower extremity cellulitis He has evidence of endorgan dysfunction with acute encephalopathy, acute kidney injury, etc. He has received a sepsis bolus in the emergency department, lactic acid levels, and pressors when he was diagnosed He is receiving broad-spectrum antibiotics in the form of vancomycin and Zosyn which is appropriate Try to taper pressors as tolerated. Blood cultures have been obtained (2) Cellulitis: Patient with evidence of right lower extremity cellulitis Vancomycin and Zosyn MRSA PCR He has had a recent cellulitis, was on Bactrim, and apparently had significant blisters that have some tissue loss. Infection may still be present. Surgery consult will be obtained, for evaluation of wound and possible need for debridement. Check arterial duplex lower extremity (3) Hypothermia: Active warming occurring (4) Hypotension: Patient with hypotension likely related to sepsis Has not received appropriate fluid Norepinephrine, titrate as appropriate for mean arterial blood sugar greater than 65 (5) Anemia associated with acute blood loss: Patient has what appears to be an ongoing GI bleed, likely upper with heme positive dark stools. Protonix 40 mg IV every 12 hours Note that he was on Aleve at home Avoid any anticoagulant He has been ordered to be transfused 2 units of packed red blood cells. Will check laboratory following this. And he will need laboratory daily, sooner if concerns for active continued bleeding (6) Hyperkalemia: Repeat BMP later today (7) ALTA (acute kidney injury): Love has been placed No evidence of obstruction on CT scan Check CK Continue hydration as tolerated (8) Acute encephalopathy: Patient with evidence of mentation slowing consistent with acute encephalopathy Monitor for improvement Plan Concern of acute diverticulitis on CT scan. Zosyn should cover this Multiple other medical problems as outlined in past medical history Full code SCDs for DVT prophylaxis, anticoagulation contraindicated secondary to GI bleed Attestations 2 Medical Necessity Statement*: Will need greater than 2 midnight stay for evaluation and treatment of sepsis, cellulitis, acute kidney injury, etc. Critical Care Time: The high probability of a clinically significant, sudden or life threatening deterioration of the patient's [renal, neurologic, vascular, musculoskeletal] s ystem(s) required my full and direct attention, intervention and personal management. The critical care time is as shown. This time is in addition to time spent performing any reported procedures but includes the following: [x] Data and vital sign review and interpretation [x] Patient assessment, examination and intervention [x] Documentation [x] Medication orders and management Critical Care Time (min): 65 Coding Level of Care Code Critical Care >/= 30 minutes Critical care time (in minutes): 65 The high probability of a clinically significant, sudden or life threatening deterioration, as referenced in this documentation, required my full and direct attention, intervention and personal management. The critical care time shown is in addition to time spent performing any reported separately billable procedures and includes the following: [x] Data and vital sign review and interpretation [x ] Patient assessment, examination and intervention [x] Medication orders and management [x] Patient/Family updates as able [x] Care Coordination and Documentation. Diagnoses Sepsis A41.9 Cellulitis L03.90 Hypothermia T68.XXXA Hypotension I95.9 Anemia associated with acute blood loss D62 Hyperkalemia E87.5 ALTA (acute kidney injury) N17.9 Acute encephalopathy G93.40
--- NOTE | 2023-11-11 13:22 | USCV_ITS ---
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 Dr Len Merida MD [facility] (Electronically Signed) Final Date: 11 November 2023 15:15 S
[2023-11-11 13:39] LABS: Creatine Phosphokinase 101 U/L (39-308)
--- NOTE | 2023-11-11 13:48 | PC.PHAR ---
PHARMACY VANCOMYCIN TO DOSE Vanco Initial Dosing Patient Information Sex M M/F Last Name DC AGE 67 years First Name RIKKI Ht 67 inches : 1955 ABW 99.79 kg Location: ICU-9 IBW 66.1 kg If loading dose given: DW 79.576 kg Loading DOSE: 1000 mg SCr 4.7 mg/dl This Dose = 12.6 mg/kg CrCl 14.5 ml/min 1st dose Cmax: 16.6 mcg/ml Vd 59.682 liters Time elapsed: 48.0 hrs Ke 0.016 hrs-1 Serum Conc. = 7.6 mcg/ml t1/2 42 hrs Hrs until 20 mcg/ml -10.3 hrs Hrs until 15 mcg/ml 7.3 hours Hrs until 10 mcg/ml 32.0 hours Dose Tau (Freq) Levels expected Standard 1250 48 Cmax 37.8 Targets 15.71 63.4 Cpeak 37.2 25 to 40 mg/kg hours Cmin 17.8 10 to 20
[2023-11-11] MEDS: ondansetron 2 mg/ML SDV 2 mL 4 MG IVP ×2 (13:50→21:21)
[2023-11-11] MEDS: sodium chloride 0.9% 1,000 ML 100 ML IV (13:59)
--- NOTE | 2023-11-11 14:00 | PC.NURSE ---
Wounds: Due to the proximity of several skin tears, part of the documentation a only refers to 1 skin tear in a area. Unable to label body areas multiple times on this assessment. Wounds numbered and labeled on a little man in paper chart.
--- NOTE | 2023-11-11 15:12 | P.CONIM_ITS ---
Providers/Reason For Consult 2 Consulting Physician/Specialty*: General surgery Reason for Consult*: Upper GI bleeding and wound care Attending Physician: Jadiel Judge MD Primary Care Provider: Jason Harper DO History of Present Illness History of Present Illness Peter Herrmann is a 67 year old male with history of right lower extremity cellulitis who was found down this morning, transferred to the hospital and evaluation in the hospital he was noted to be on renal failure with significant acidosis elevated lactate and septic shock. I in addition patient was noted to have melena and downtrending the hemoglobin. I was consulted for these findings as well to evaluate the right lower extremity wounds. On my evaluation patient appears to be more stable now, he is able to answer simple questions, complains of some pain on the right lower extremity at the level of the wounds but otherwise no other significant complaints. Review of Systems 2 General: Reports: ROS unobtainable due to mental status Medications/Allergies Home Medications Medication Instructions Recorded Confirmed Last Taken Type albuterol sulfate 90 mcg/actuation 2 puff inhalation Q6H PRN 02/01/21 11/11/23 02/11/21 History aerosol inhaler (ProAir HFA) Shortness Of Breath aspirin 81 mg tablet,delayed 81 mg PO QAM 02/01/21 11/11/23 11/10/23 History release amlodipine 10 mg tablet 10 mg PO DAILY 06/06/23 11/11/23 11/10/23 History budesonide 160 mcg-glycopyr 9 2 inh inhalation BID 06/06/23 11/11/23 11/10/23 History mcg-formot 4.8 mcg/actuation HFA inhaler (Breztri Aerosphere) fluticasone propionate 50 1 spray intranasal DAILY 06/06/23 11/11/23 06/06/23 History mcg/actuation nasal spray,suspension naproxen sodium 220 mg capsule 440 mg PO BID PRN Pain 06/06/23 11/11/23 Unknown History (Aleve) furosemide 40 mg tablet 40 mg PO BID 10/23/23 11/11/23 11/10/23 History metoprolol tartrate 50 mg tablet 50 mg PO TID 10/23/23 11/11/23 11/10/23 History potassium chloride 10 mEq 10 meq PO BID 10/23/23 11/11/23 11/10/23 History tablet,extended release Allergies Allergy/AdvReac Type Severity Reaction Status Date / Time acetaminophen [From Tylenol] Allergy Unknown Verified 11/11/23 05:16 Opioids - Morphine Analogues Allergy ADR-Halluci Verified 11/11/23 05:16 nating Current Medications Generic Name Dose Route Start Last Admin Trade Name Freq PRN Reason Stop Dose Admin norepinephrine 4 mg in 250 mls @ 0 mls/hr 11/11/23 06:45 11/11/23 14:12 Levophed IV 6 mcg/min .Q0M FREYA 22.5 mls/hr Titration Protocol Per Protocol Sodium Chloride 1,000 mls @ 100 mls/hr 11/11/23 11:21 11/11/23 13:59 Sodium Chloride 0.9% IV 100 mls/hr .Q10H FREYA Administration Ondansetron HCl 4 mg 11/11/23 13:22 11/11/23 13:50 Ondansetron 2 Mg/Ml Sdv 2 Ml IVP 4 mg Q6H PRN Administration NAUSEA AND VOMITING Sodium Chloride 50 ml 11/11/23 06:17 11/11/23 11:29 Sodium Chloride 0.9% 100 Ml Bag IV 11/12/23 06:17 50 ml PRN PRN Administration Blood transfusion prime and flush PFSH Acute 2 PFSH: Medical History (Updated 11/11/23 @ 13:17 by Jadiel Judge MD) CHF (congestive heart failure), NYHA class III LBBB (left bundle branch block) COPD (chronic obstructive pulmonary disease) COPD (chronic obstructive pulmonary disease) Wears 2 L of oxygen chronically HTN (hypertension) Family History Other Hypertension Denies family history of Diabetes CAD (coronary artery disease) Clotting disorder Dementia Chronic kidney disease (CKD) Suicide Anesthesia complication Bleeding disorder Lung disease Cancer Stroke Social History Smoking and tobacco/nicotine status: former use of tobacco/nicotine Quit status (tobacco/nicotine): has quit using Alcohol intake: former Substance/Drug Use: current Other substance/drug use details: No inhalation. Housing: House Vitals/I&O/Wt Last Vital Signs Temp 97.7 F 11/11/23 14:30 Pulse 88 01/23/24 14:30 Resp 16 11/11/23 14:30 BP 113/68 11/11/23 14:30 Pulse Ox 92 11/11/23 14:30 O2 Del Method Nasal Cannula 11/11/23 14:00 O2 Flow Rate 5 11/11/23 14:00 11/11/23 11/11/23 11/11/23 06:59 14:59 22:59 Intake Total 1000 / 1000 4153.70 / 4153.70 Balance 1000 / 1000 4153.70 / 4153.70 Weight last 48 hrs Weight 234 lb 11.2 oz Weight 220 lb Physical Exam 2 Narrative: In mild to moderate respiratory distress due to history of COPD ? Abdominal exam is benign, umbilical hernia noted ? On the right lower extremity there is distal edema there is multiple small ulcerations on the anterior and posterior aspect of the leg. On the anteromedial aspect of the lower leg there is a 1 cm wound that tracks deep into the soft tissue of the right ankle, there is minimal slough at the base that was removed with a Ray-Sonia. On the posterior aspect of the leg there is 2 additional wounds that have some tracking measuring about 1 to 2 cm each 1, no significant purulence was able to be removed from these wounds. Urinary Catheter Management: Love: Cath Placed During This Visit: yes Reason for Continuing Indwelling Catheter: Other Urinary Catheter Date of Insertion: 11/11/23 Urinary Catheter Time of Insertion: 06:18 Data 11/11/23 05:15 11/11/23 05:15 A&P Assessment and plan (1) Anemia associated with acute blood loss: (2) Leg swelling: Plan After complete history, physical examination and review of all available clinical data the following is my assessment. Patient currently in critical condition and not a stable for endoscopic evaluation. Plan is to stabilize patient provide blood products and if patient is stable by the morning I will proceed with upper endoscopy on . Regarding wound care. At this moment I do not see the need for additional or debridement, also taking account patient condition. I recommend that we continue with local wound care with Santyl at the base of the anterior inferior lateral leg wound and posterior leg wounds this followed by wet-to-dry once a day. Once patient is stable I may consider taking him to the OR for additional debridement. All other management by the primary team is appreciated, general surgery remains available as needed. Coding Level of Care Code 17966 Diagnoses Anemia associated with acute blood loss D62 Leg swelling M79.89
[2023-11-11] MEDS: lanolin oint 7 gm 1 APPLIC TOPICAL (15:36)
[2023-11-11 15:51] LABS: Basophils # 0.1 10^3/uL (0.0-0.1); Basophils % 0.2 %; Hematocrit 26.3 % (37-53); Lymphocytes # 1.1 10^3/uL (0.8-4.8); Lymphocytes % 3.3 %; Mean Corpuscular HGB Conc 33.5 g/dL (30-55); Mean Corpuscular Hemoglobin 27.7 pg (27-33); Mean Corpuscular Volume 82.7 fl (82-101); Mean Platelet Volume 10.5 fL (7.4-10.4); Monocytes # 1.2 10^3/uL (0.2-0.9); Monocytes % 3.5 %; Neutrophils # 31.15 10^3/uL (1.8-7.7); Neutrophils % 89.1 %; Nucleated Red Blood Cells % 0 %; Platelet Count 564 10^3/cmm (157-399); Red Blood Count 3.18 10^6/uL (3.85-5.65); Red Cell Distribution Width 15.1 % (12.1-15.1)
[2023-11-11 16:11] LABS: White Blood Count 34.96 10^3/uL (3.29-11.43)
[2023-11-11 16:19] LABS: Anion Gap 20.1 (5-19); Carbon Dioxide 21 mmol/L (22-29); Chloride 90 mmol/L (98-107); Glomerular Filtration Rate 13.5 mL/min (90-130); Glucose 177 mg/dL (65-115); Potassium 5.1 mmol/L (3.5-5.1); Sodium 126 mmol/L (136-145)
[2023-11-11 16:26] LABS: Osmolality Calculated 308 mOsm/kg (285-295)
[2023-11-11 16:29] LABS: Blood Urea Nitrogen 129 mg/dL (8-23)
[2023-11-11] MEDS: norepinephrine 4 MG/250 ML BAG 15 MG IV (16:36)
--- NOTE | 2023-11-11 18:41 | PC.NURSE ---
SHift summary: Pt rested in bed throughout shift. Sinus rhythm noted on monitor. He remains on 5lpm/NC. NO complaints of pain this shift. He did complain of nausea, received Zofran IVP, no further complaints. Second unit of PRBCs infused in ICU. He remain on Levophed, it has been decreased to 3mcg/min. He is tolerating it well. He had 450ml of urine output. He has had 2 incontinent episodes of black tarry stool this shift. Skin tears remain covered with optifoam. Chronic ulcers on right leg had wet to dry dressing done by Dr Cummings.
[2023-11-11] MEDS: pantoprazole 40 mg SDV IVP (19:10)
--- NOTE | 2023-11-11 20:04 | PC.NURSE ---
At the beginning of this nurse's shift the patient reported some nausea and when this nurse was about to give them some zofran, the patient vomited about 4 medium sized blood cloths along with a tarry bowel movement. Vital signs are stable and the patient is also stable with no report of dizziness or pain. Will continue to monitor.
--- NOTE | 2023-11-11 20:59 | PC.NURSE ---
Dr. Oconnell was notified about the blood clots in the patient's emesis and the dark tarry stool. Dr. Oconnell ordered for 250 ml bolus of normal saline to be given out of the bag that was hanging already. Dr. Oconnell also ordered for zofran to be given.
[2023-11-11] MEDS: albumin 25 G/100 ML BAG 60 G IV (21:10)
[2023-11-11] MEDS: octreotide 500 MCG in sodium chloride 0.9% (100 ml) 100 ML 10.1 MCG IV (21:11)
[2023-11-11] MEDS: sucralfate 1 gm/10 mL Oral Liq UDC PO (21:21)
[2023-11-11 21:26] LABS: Basophils # 0.1 10^3/uL (0.0-0.1); Basophils % 0.2 %; Lymphocytes # 1.1 10^3/uL (0.8-4.8); Mean Corpuscular HGB Conc 34.2 g/dL (30-55); Mean Corpuscular Hemoglobin 28.1 pg (27-33); Mean Corpuscular Volume 82.2 fl (82-101); Monocytes # 1.1 10^3/uL (0.2-0.9); Monocytes % 3.3 %; Nucleated Red Blood Cells % 0 %; Platelet Count 494 10^3/cmm (157-399); Red Blood Count 2.92 10^6/uL (3.85-5.65); Red Cell Distribution Width 15.1 % (12.1-15.1)
[2023-11-11 21:34] LABS: White Blood Count 34.55 10^3/uL (3.29-11.43)
[2023-11-11 21:41] LABS: INR 1.56 (0.8-1.2)
[2023-11-11] MEDS: metoclopramide 5 mg/mL SDV 2 mL IVP (21:44)
[2023-11-11 21:46] LABS: Alanine Aminotransferase 59 U/L (0-41); Albumin Level 2.5 g/dL (3.5-5.2); Alcohol Level < 10 mg/dL (0-10); Alkaline Phosphatase 124 U/L (40-130); Anion Gap 17.8 (5-19); Aspartate Amino Transferase 78 U/L (0-40); Carbon Dioxide 21 mmol/L (22-29); Chloride 94 mmol/L (98-107); Globulin 3.3 g/dL (1.3-4.6); Glomerular Filtration Rate 14.3 mL/min (90-130); Glucose 137 mg/dL (65-115); Potassium 4.8 mmol/L (3.5-5.1); Sodium 128 mmol/L (136-145); Total Bilirubin 0.2 mg/dL (0.15-1.2); Total Protein 5.8 g/dL (6.6-8.7)
[2023-11-11 21:48] LABS: Lactate (Lactic Acid level) 0.8 mmol/L (0.5-2.2)
[2023-11-11 21:54] LABS: Osmolality Calculated 313 mOsm/kg (285-295)
[2023-11-11 21:57] LABS: Blood Urea Nitrogen 137 mg/dL (8-23)
[2023-11-12] VITALS (52 sets, daily range): BP systolic 90–132; BP diastolic 47–83; PULSE 85–115; RESP 13–30; TEMP 36.1–37.1; O2SAT 87–99; BMI 34.0
[2023-11-12] MEDS: sodium chloride 0.9% 1,000 ML 75 ML IV ×2 (01:00→12:23)
[2023-11-12 01:34] LABS: Basophils # 0.1 10^3/uL (0.0-0.1); Basophils % 0.1 %; Hematocrit 21.7 % (37-53); Lymphocytes # 1.1 10^3/uL (0.8-4.8); Lymphocytes % 3.2 %; Mean Corpuscular HGB Conc 33.2 g/dL (30-55); Mean Corpuscular Hemoglobin 27.6 pg (27-33); Mean Corpuscular Volume 83.1 fl (82-101); Mean Platelet Volume 10.5 fL (7.4-10.4); Monocytes # 0.9 10^3/uL (0.2-0.9); Monocytes % 2.6 %; Neutrophils # 30.74 10^3/uL (1.8-7.7); Neutrophils % 90.6 %; Nucleated Red Blood Cells % 0 %; Platelet Count 506 10^3/cmm (157-399); Red Blood Count 2.61 10^6/uL (3.85-5.65); Red Cell Distribution Width 15.2 % (12.1-15.1)
[2023-11-12 01:36] LABS: White Blood Count 33.99 10^3/uL (3.29-11.43)
[2023-11-12] MEDS: sucralfate 1 gm/10 mL Oral Liq UDC PO (04:02)
[2023-11-12] MEDS: pantoprazole 40 mg SDV IVP ×2 (06:18→17:33)
[2023-11-12] MEDS: albumin 25 G/100 ML BAG 60 G IV ×3 (06:18→21:02)
--- NOTE | 2023-11-12 07:03 | PC.NURSE ---
At the beginning of this nurse's shift levophed was running at 3 mcg/min. MAR was updated to reflect this.
[2023-11-12 07:18] LABS: Basophils # 0.1 10^3/uL (0.0-0.1); Basophils % 0.2 %; Hematocrit 25.2 % (37-53); Lymphocytes # 1.1 10^3/uL (0.8-4.8); Lymphocytes % 3.3 %; Mean Corpuscular HGB Conc 32.9 g/dL (30-55); Mean Corpuscular Hemoglobin 27.7 pg (27-33); Mean Platelet Volume 9.8 fL (7.4-10.4); Monocytes # 0.9 10^3/uL (0.2-0.9); Monocytes % 2.6 %; Neutrophils # 30.16 10^3/uL (1.8-7.7); Neutrophils % 90.4 %; Nucleated Red Blood Cells % 0 %; Platelet Count 469 10^3/cmm (157-399)
[2023-11-12] MEDS: octreotide 500 MCG in sodium chloride 0.9% (100 ml) 100 ML 10.1 MCG IV (07:31)
[2023-11-12 07:34] LABS: Ammonia 26 umol/L (16-60)
[2023-11-12 07:35] LABS: Alanine Aminotransferase 56 U/L (0-41); Albumin Level 3.2 g/dL (3.5-5.2); Alkaline Phosphatase 111 U/L (40-130); Anion Gap 20.7 (5-19); Aspartate Amino Transferase 77 U/L (0-40); Calcium 8.3 mg/dL (8.5-10.5); Carbon Dioxide 20 mmol/L (22-29); Chloride 97 mmol/L (98-107); Globulin 3.2 g/dL (1.3-4.6); Glucose 145 mg/dL (65-115); Potassium 4.7 mmol/L (3.5-5.1); Sodium 133 mmol/L (136-145); Total Bilirubin 0.3 mg/dL (0.15-1.2); Total Protein 6.4 g/dL (6.6-8.7)
[2023-11-12 07:46] LABS: Blood Urea Nitrogen 121 mg/dL (8-23); Osmolality Calculated 317 mOsm/kg (285-295)
--- NOTE | 2023-11-12 08:15 | P.PN_ITS ---
Documented by User: JIMBO Yates STDSHAUNA 11/12/23 09:38 Subjective 2 Subjective: Peter Herrmann is a 67 year old white male who presented to the ER yesterday after being found down for several hours by his grandson. Patient said he passed out and does not remember much more of the event. Patient did not sustain significant head trauma, but sustained multiple skin tears and has cellulitis of the R lower extremity, sepsis, and had a Hgb of 6.4, ALTA and acute encephalopathy. Patient was admitted to the ICU, and has had nausea and vomited once containing red blood clots, along with one black and tarry stool overnight. Patient is ill-appearing, and cannot recall all his medical history. Patient denies any significant pain, or SOB, chest pain, palpitations, syncopal episodes or lack of feeling in his extremities. He is oriented to person, place and time. He complains of feeling cold. In the ICU he has received 3 units packed RBCs and 1 unit FFP, albumin and levophed, Vancomycin piperacillin-tazobactam for sepsis along with pantoprazole and octreotide for acute GI bleed. Medications: Reviewed: Yes Vitals/I&O/Wt Last Vital Signs Temp 97.2 F L 11/12/23 04:12 Pulse 85 11/12/23 05:30 Resp 19 H 11/12/23 05:30 BP 123/62 11/12/23 06:00 Pulse Ox 99 11/12/23 05:30 O2 Del Method Nasal Cannula 11/12/23 05:30 O2 Flow Rate 3.5 11/11/23 22:00 11/11/23 11/12/23 11/12/23 22:59 06:59 14:59 Intake Total 587.667 / 4741.367 840 / 5581.367 201 / 201 Output Total 900 / 900 1350 / 2250 Balance -312.333 / 3841.367 -510 / 3331.367 201 / 201 Weight last 48 hrs Weight 217 lb Weight 217 lb Weight 234 lb 11.2 oz Weight 220 lb Physical Exam 2 Narrative: General exam is an ill-appearing white male, with normal blood pressure on fluids, albumin, blood and norepinephrine. His temperature is normal though he reports being cold with blankets on. He is oriented to person, place and time and is conversational. In no acute pain. HEENT: Atraumatic and normocephalic. Oropharynx with dry mucous membranes Neck is supple Cardiovascular regular rate and rhythm distant heart sounds Lungs mild inspiratory wheezing bilaterally, decreased breath sounds, long expiratory phase Abdomen is soft. No obvious tenderness. exam deferred, Love noted Musculoskeletal: Extremity bruising and around bandaged skin tears on hands bilaterally, R lower extremity is wrapped, no edema, or changes in sensation, capillary refill <1 second Skin see above Neuro no focal deficits, or weakness, Urinary Catheter Management: Love: Cath Placed During This Visit: yes Reason for Continuing Indwelling Catheter: Accurate Measurement of Urinary Output in Critically Ill Patients Urinary Catheter Date of Insertion: 11/11/23 Urinary Catheter Time of Insertion: 06:18 Sepsis: Is patient septic: Yes Focused sepsis exam performed: Yes Date exam was performed: 11/11/23 Time exam was performed: 08:55 Data 11/12/23 07:10 11/12/23 07:10 Micro: Microbiology 11/11/23 18:35 Occult Blood (FIT) - Final Stool - Stool Aspirate A&P Assessment and plan (1) Sepsis: Patient is being treated in the ICU for sepsis, probably secondary to cellulitis of right lower extremity, and endorgan dysfunction with acute kidney injury and is receiving IV Levophed albumin vancomycin and piperacillin-tazobactam. His blood pressure is currently stabilized Last night patient vomited red blood with clots in it and also had a black and tarry stool and is receiving octreotide, packed red blood cells and FFP for GI bleed with INR increasing overnight to 1.56, and down to 1.4 this morning after FFP. (2) Cellulitis: Patient with evidence of right lower extremity cellulitis Vancomycin and Zosyn MRSA PCR He has had a recent cellulitis, was on Bactrim, and apparently had significant blisters that have some tissue loss. Infection may still be present. Surgery consult will be obtained, for evaluation of wound and possible need for debridement. Check arterial duplex lower extremity (3) Hypothermia: Patient's temperature is now normal after warming (4) Hypotension: Patient has stabilized blood pressure after sepsis bolus and albumin IV (5) Anemia associated with acute blood loss: Anemia likely secondary to acute GI bleed patient has received 3 packs of red blood cell and 1 unit FFP hemoglobin is 8.4 Continue octreotide 500 mcg/hr IV Continue pantoprazole 40 mg every 12 hours IVP Patient is stable (6) Hyperkalemia: Repeat BMP later today (7) ALTA (acute kidney injury): Love placed No evidence of obstruction on CT scan Check CK Continue IV normal saline Patient is n.p.o. for potential surgery for GI bleed (8) Acute encephalopathy: Patient's mentation is moderately improved. He is alert and oriented to person place and time, but he still cannot give a full medical history Plan Continue vancomycin for cellulitis and Zosyn present for cellulitis and acute diverticulitis Continue norepinephrine, albumin and NS IV for blood pressure monitor Love output Continue collagenase topical daily for wound care Full code SCDs for DVT prophylaxis, anticoagulation contraindicated secondary to GI bleed Patient is following with general surgery for GI bleed Patient is following wound care for cellulitis and skin tears Coding Level of Care Code Critical Care >/= 30 minutes Diagnoses Sepsis A41.9 Cellulitis L03.90 Hypothermia T68.XXXA Hypotension I95.9 Anemia associated with acute blood loss D62 Hyperkalemia E87.5 ALTA (acute kidney injury) N17.9 Acute encephalopathy G93.40 Documented by User: Jadiel Judge MD 11/12/23 10:00 Physical Exam 2 Urinary Catheter Management: Love: Cath Placed During This Visit: yes Data 11/12/23 07:10 11/12/23 07:10 A&P Assessment and plan (1) Sepsis: Patient is being treated in the ICU for sepsis, probably secondary to cellulitis of right lower extremity, and endorgan dysfunction with acute kidney injury and is receiving IV Levophed albumin vancomycin and piperacillin-tazobactam. His blood pressure is currently stabilized on norepinephrine. Will continue to try to wean as tolerated. Last night patient vomited red blood with clots in it and also had a black and tarry stool and is receiving octreotide, packed red blood cells and FFP for GI bleed with INR increasing overnight to 1.56, and down to 1.4 this morning after FFP. (2) Cellulitis: Patient with evidence of right lower extremity cellulitis Continue vancomycin and Zosyn MRSA PCR pending He has had a recent cellulitis, was on Bactrim, and apparently had significant blisters that have some tissue loss. Infection may still be present. Surgery consult appreciated Arterial duplex demonstrated no evidence of flow limitations (3) Hypothermia: (4) Hypotension: Patient has stabilized blood pressure after sepsis bolus and albumin IV He is currently still on albumin and norepinephrine. Will wean norepinephrine as tolerated. When blood pressure stabilizes, consider discontinuing albumin. No evidence currently the patient has liver disease. (5) Anemia associated with acute blood loss: Anemia likely secondary to acute GI bleed patient has received 3 packs of red blood cell and 1 unit FFP hemoglobin is 8.4. 2 units were given on 11/11 and 1 unit on 11/12. Continue octreotide 500 mcg/hr IV. This may not be needed as patient does not have liver disease. Possible discontinue after EGD if no varices are noted. Continue pantoprazole 40 mg every 12 hours IVP Surgery also consulted for possible EGD. Likely in the next 24 hours. (6) Hyperkalemia: Resolved (7) ALTA (acute kidney injury): Love placed No evidence of obstruction on CT scan CK not elevated Continue IV normal saline Patient is n.p.o. for potential surgery for GI bleed Renal function improving (8) Acute encephalopathy: Attestations 2 Medical Necessity Statement*: Needs continued stay in the ICU secondary to sepsis and hypotension requiring norepinephrine IV Critical Care Time: The high probability of a clinically significant, sudden or life threatening deterioration of the patient's [renal, vascular, infectious disease] system(s) required my full and direct attention, intervention and personal management. The critical care time is as shown. This time is in addition to time spent performing any reported procedures but includes the following: [x] Data and vital sign review and interpretation [x] Patient assessment, examination and intervention [x] Documentation [x] Medication orders and management Critical Care Time (min): 39 Coding Level of Care Code Critical Care >/= 30 minutes Critical care time (in minutes): 39 The high probability of a clinically significant, sudden or life threatening deterioration, as referenced in this documentation, required my full and direct attention, intervention and personal management. The critical care time shown is in addition to time spent performing any reported separately billable procedures and includes the following: [x] Data and vital sign review and interpretation [x ] Patient assessment, examination and intervention [x] Medication orders and management [x] Patient/Family updates as able [x] Care Coordination and Documentation. Diagnoses Sepsis A41.9 Cellulitis L03.90 Hypothermia T68.XXXA Hypotension I95.9 Anemia associated with acute blood loss D62 Hyperkalemia E87.5 ALTA (acute kidney injury) N17.9 Acute encephalopathy G93.40
[2023-11-12] MEDS: piperacillin-tazobactam 3.375 GM in sodium chloride 0.9% (plus) 50 ML IV ×2 (10:13→21:02)
[2023-11-12] MEDS: collagenase oint 30 gm 1 APPLIC TOPICAL (10:14)
--- NOTE | 2023-11-12 11:27 | P.HPUD_ITS ---
Surgery/Procedure H&P Update DATE OF PROCEDURE: November 12, 2023 DATE H&P PERFORMED: 11/11/23 H&P UPDATE INFORMATION: I have reviewed H&P completed within last 30 days, I have examined patient prior to procedure, No changes to prior documentation and H[place] in [facility] date indicated CHANGES TO PREVIOUS DOCUMENTATION: I have discussed upper endoscopy with the patient and son. I Discussed all the risk of the procedure including the risk of perforation of the stomach esophagus or duodenum requiring surgical intervention and transfer to higher level of care. I have also stated to the patient that I might not be able to control the bleeding which case we will have to transfer him to higher level of care. He has reasonably bleeding and risk of worsening clinical condition but due to the procedure and anesthesia. Please consider high risk procedure but due to patient current clinical condition with think it would be appropriate to proceed. Patient and family member agree.
--- NOTE | 2023-11-12 12:48 | PC.NURSE ---
Patient in care of GI lab at this time, patient on 3L NC, transported with Zosyn, NS, and octreotide running through R IJ.
[2023-11-12] MEDS: EPINEPHrine 1 mg/mL INJ XX (13:12)
--- NOTE | 2023-11-12 13:23 | P.MISC_ITS ---
Miscellaneous Note Purpose of Documentation: Update on patient care Note: Upper endoscopy done this afternoon. No active bleeding was noted. There was erosive gastritis, esophagitis and there was multiple ulcers at the level of the antrum. Likely cause is naproxen use. I took biopsies from the edges of the ulcerations. After this there was evidence of some active bleeding and therefore I decided to control the bleeding with epinephrine. Patient tolerated well the procedure. -Patient can be started on clear liquid diet and advance as tolerated -Continue twice a day PPI, patient shoul d be discharged home on 6 weeks of twice a day PPI -Consider twice a day sucralfate once pa tient taking p.o. diet. -Follow-up in my office in 2 weeks, I wi ll plan to repeat the endoscopy in about 6 weeks.
--- NOTE | 2023-11-12 14:08 | P.ANESASSM_ITS ---
Pre-Anesthetic Assessment Height/Weight: Height 1.7 m Weight 98.43 kg Temp Pulse Resp BP Pulse Ox O2 Del Method O2 Flow Rate 97.0 F L 97 17 101/71 94 Nasal Cannula 2 11/12/23 12:30 11/12/23 12:30 11/12/23 12:30 11/12/23 12:30 11/12/23 12:30 11/12/23 12:30 11/12/23 08:27 Operation Date: 11/12/23 12:15 Proposed Procedures p EGD(Not Applicable) - Brent Cummings MD Familial anesthetic complications: none Was Beta Hernan taken within 24 hours: Yes Was Clonidine taken within 24 hours: N/A Social No alcohol and No tobacco (h/o smoking) Exam regular rate & rhythm Airway Submandibular: within normal limits Cervical ROM: within normal limits Mallampati: Class II Dentition: false Pulmonary Chronic Obstructive Pulmonary Disease CV/HEM Anemia, Arrythmia (LBBB), Congestive Heart Failure and Hypertension Acute on chronic renal failure Metabolic Morbid Obesity Anesthetic Plan ASA status: 4 Anesthesia: General Medications/Allergies Home Medications Medication Instructions Recorded Confirmed Last Taken Type albuterol sulfate 90 mcg/actuation 2 puff inhalation Q6H PRN 02/01/21 11/11/23 02/11/21 History aerosol inhaler (ProAir HFA) Shortness Of Breath aspirin 81 mg tablet,delayed 81 mg PO QAM 02/01/21 11/11/23 11/10/23 History release amlodipine 10 mg tablet 10 mg PO DAILY 06/06/23 11/11/23 11/10/23 History budesonide 160 mcg-glycopyr 9 2 inh inhalation BID 06/06/23 11/11/23 11/10/23 History mcg-formot 4.8 mcg/actuation HFA inhaler (Breztri Aerosphere) fluticasone propionate 50 1 spray intranasal DAILY 06/06/23 11/11/23 06/06/23 History mcg/actuation nasal spray,suspension naproxen sodium 220 mg capsule 440 mg PO BID PRN Pain 06/06/23 11/11/23 Unknown History (Aleve) furosemide 40 mg tablet 40 mg PO BID 10/23/23 11/11/23 11/10/23 History metoprolol tartrate 50 mg tablet 50 mg PO TID 10/23/23 11/11/23 11/10/23 History potassium chloride 10 mEq 10 meq PO BID 10/23/23 11/11/23 11/10/23 History tablet,extended release Allergies Allergy/AdvReac Type Severity Reaction Status Date / Time acetaminophen [From Tylenol] Allergy Unknown Verified 11/11/23 05:16 Opioids - Morphine Analogues Allergy ADR-Halluci Verified 11/11/23 05:16 nating Current Medications Generic Name Dose Route Start Last Admin Trade Name Freq PRN Reason Stop Dose Admin Collagenase 1 applic 11/12/23 09:00 11/12/23 10:14 Collagenase Oint 30 Gm TOPICAL 1 applic DAILY FREYA Administration norepinephrine 4 mg in 250 mls @ 0 mls/hr 11/11/23 06:45 11/12/23 11:34 Levophed IV 0 mcg/min .Q0M FREYA 0 mls/hr Titration Protocol Per Protocol Sodium Chloride 1,000 mls @ 75 mls/hr 11/11/23 11:21 11/12/23 12:23 Sodium Chloride 0.9% IV 75 mls/hr .[id number] FREYA Administration Piperacillin Sod/Tazobactam 50 mls @ 12.5 mls/hr 11/11/23 22:00 11/12/23 10:13 Sod 3.375 gm/ Sodium Chloride IV 12.5 mls/hr Q12H FREYA Administration Protocol Albumin Human 25 g in 100 mls @ 60 mls/hr 11/11/23 21:00 11/12/23 13:54 Albumin IV 60 mls/hr Q8H FREYA Administration Octreotide Acetate 500 mcg/ 101 mls @ 10.1 mls/hr 11/11/23 21:00 11/12/23 07:31 Sodium Chloride IV 50 mcg/hr .Q10H FREYA 10.1 mls/hr Administration 50 MCG/HR Sodium Chloride 1,000 mls @ 30 mls/hr 11/12/23 11:25 11/12/23 14:01 Sodium Chloride 0.9% IV 11/13/23 11:24 Not Given .Q24H ONE Lanolin 1 applic 11/11/23 15:27 11/11/23 15:36 Lanolin Oint 7 Gm TOPICAL 1 applic PRN PRN Administration DRYNESS Ondansetron HCl 4 mg 11/11/23 13:22 11/11/23 21:21 Ondansetron 2 Mg/Ml Sdv 2 Ml IVP 4 mg Q6H PRN Administration NAUSEA AND VOMITING Pantoprazole Sodium 40 mg 11/11/23 18:30 11/12/23 06:18 Pantoprazole 40 Mg Sdv IVP 40 mg Q12H FREYA Administration PFSH Anesthesia Medical History (Updated 11/11/23 @ 13:17 by Jadiel Judge MD) CHF (congestive heart failure), NYHA class III LBBB (left bundle branch block) COPD (chronic obstructive pulmonary disease) COPD (chronic obstructive pulmonary disease) Wears 2 L of oxygen chronically HTN (hypertension) Family History Other Hypertension Denies family history of Diabetes CAD (coronary artery disease) Clotting disorder Dementia Chronic kidney disease (CKD) Suicide Anesthesia complication Bleeding disorder Lung disease Cancer Stroke Social History Smoking and tobacco/nicotine status: former use of tobacco/nicotine Quit status (tobacco/nicotine): has quit using Alcohol intake: former Substance/Drug Use: current Other substance/drug use details: No inhalation. Housing: House Data Anesthesia 11/12/23 07:10 11/12/23 07:10 Short CBC 11/11/23 11/11/23 11/11/23 Range/Units 05:15 15:40 21:19 WBC 26.89 H 34.96 H* 34.55 H* (3.29-11.43) 10^3/uL Hgb 6.40 L* 8.80 L D 8.20 L (11.27-16.99) g/dL Hct 20.2 L* 26.3 L D 24.0 L (37-53) % MCV 83.8 82.7 82.2 (82-101) fl Plt Count 717 H 564 H 494 H (157-399) 10^3/cmm Neut % (Auto) 89.1 90.0 % Neut # (Auto) 31.15 H 31.10 H (1.8-7.7) 10^3/uL 11/12/23 11/12/23 Range/Units 00:48 07:10 WBC 33.99 H* 33.40 H* (3.29-11.43) 10^3/uL Hgb 7.20 L 8.30 L (11.27-16.99) g/dL Hct 21.7 L 25.2 L (37-53) % MCV 83.1 84.0 (82-101) fl Plt Count 506 H 469 H (157-399) 10^3/cmm Neut % (Auto) 90.6 90.4 % Neut # (Auto) 30.74 H 30.16 H (1.8-7.7) 10^3/uL BMP 11/11/23 11/11/23 11/11/23 05:15 15:40 21:19 Sodium 124 L 126 L 128 L Potassium 5.4 H 5.1 4.8 Chloride 84 L 90 L 94 L Carbon Dioxide 20 L 21 L 21 L BUN 124 H* D 129 H* 137 H* Creatinine 4.7 H 4.4 H 4.2 H Glucose 151 H 177 H 137 H Calcium 8.3 L 8.0 L 8.0 L 11/12/23 07:10 Sodium 133 L Potassium 4.7 Chloride 97 L Carbon Dioxide 20 L BUN 121 H* Creatinine 3.6 H Glucose 145 H Calcium 8.3 L Cardiac Enzymes 11/11/23 11/11/23 11/11/23 Range/Units 05:15 05:15 06:56 Creatine Kinase 97 101 (39-308) U/L Troponin T Baseline 22 H (0-15) ng/L Troponin T 120 Minute 17.77 H (0-15) ng/L Delta Troponin T -4.23 L (0-10) ABS# Troponin T Hi Sens 6Hr (0-15) ng/L Troponin T Hi Sens 6Hr Delta (0-12) ng/L 11/11/23 Range/Units 11:04 Creatine Kinase (39-308) U/L Troponin T Baseline (0-15) ng/L Troponin T 120 Minute (0-15) ng/L Delta Troponin T (0-10) ABS# Troponin T Hi Sens 6Hr 18.45 H (0-15) ng/L Troponin T Hi Sens 6Hr Delta -3.55 L (0-12) ng/L Liver Function 11/11/23 11/11/23 11/12/23 Range/Units 05:15 21:19 07:10 Total Bilirubin 0.2 0.2 0.3 (0.15-1.2) mg/dL AST 19 78 H 77 H (0-40) U/L ALT 17 59 H 56 H (0-41) U/L Alkaline Phosphatase 137 H 124 111 (40-130) U/L Albumin 2.6 L 2.5 L 3.2 L (3.5-5.2) g/dL Urine 11/11/23 Range/Units 06:15 Urine Color Yellow (Yellow) Urine Appearance Clear (CLEAR) Urine pH 5 (5-7) Ur Specific [place] 1.015 (1.005-1.030) Urine Protein Neg (Negative) Urine Glucose (UA) Norm (Normal) Urine Ketones Negative (Negative) Urine Nitrate Negative (Negative) Urine Bilirubin Neg (Negative) Ur Leukocyte Esterase 1+ H (Negative) Urine RBC Rare (0-2) /hpf Urine WBC 5-10 H (0-5) /hpf Blood Bank 11/11/23 05:44 Blood Type AB Negative Rho(D) Type Negative Antibody Screen Negative Coags 11/11/23 11/11/23 11/12/23 05:15 21:19 07:10 PT 17.20 H 19.20 H 17.60 H INR 1.35 H 1.56 H 1.40 H ABG 11/11/23 05:56 Specimen Type Arterial Sample Site Radial, right ABG pH 7.31 L ABG pCO2 35.0 ABG pO2 106.0 H ABG HCO3 17.4 L ABG O2 Saturation 98.8 ABG Base Excess -8.2 L A-a O2 Gradient Not Reportable O2 Delivery Device Nc O2 Liters/Min 4.0 Microbiology 11/11/23 06:15 Urine Culture - Preliminary Urine,Clean Catch Gram Negative Rods 11/11/23 18:35 Occult Blood (FIT) - Final Stool - Stool Aspirate Cardiac Studies: 2 Echocardiogram Ultrasound 02/07/21
--- NOTE | 2023-11-12 14:09 | ANE.PACU2 ---
Inpatient post-anesthesia follow up: Airway intact: Yes Vital signs: Temperature 97.0 F Pulse Rate 97 Respiratory Rate 17 Blood Pressure 101/71 Pulse Oximetry 94 Oxygen Delivery Me thod [ Nasal Cannula Current Rate & Del dimitrios] Oxygen Delivery Me thod Nasal Cannula Oxygen Flow Rate [ Current Rate 2 & Delivery] Oxygen Flow Rate 3.5 Fraction of Inspir ed Oxygen Hydration adequate: Yes Nausea and vomiting: No Pain level: 1 Mental status: Baseline Additional Comments: To ICU, extubated, stable.
--- NOTE | 2023-11-12 22:53 | PC.NURSE ---
Patient reported shortness of breath, this nurse listened to lung bauman and discovered crackles on lower left lung field. Dr. Oconnell notified and he ordered for fluids to be stopped and to give 40 mg of lasix IVP.
[2023-11-12] MEDS: ondansetron 2 mg/ML SDV 2 mL 4 MG IVP (23:10)
[2023-11-12] MEDS: FUROsemide 10 mg/mL SDV 4mL 40 MG IVP (23:11)
[2023-11-12] MEDS: promethazine 25 mg/mL SDV 1 mL 12.5 MG IM (23:29)
[2023-11-13] VITALS (50 sets, daily range): BP systolic 86–139; BP diastolic 53–100; PULSE 67–117; RESP 13–27; TEMP 36.7–36.8; O2SAT 87–99; BMI 32.8
[2023-11-13 02:34] LABS: Basophils % 0.1 %; Eosinophils # 0.1 10^3/uL (0.0-0.8); Eosinophils % 0.3 %; Lymphocytes # 1.1 10^3/uL (0.8-4.8); Lymphocytes % 3.4 %; Mean Corpuscular Hemoglobin 28.1 pg (27-33); Mean Corpuscular Volume 85.2 fl (82-101); Mean Platelet Volume 9.7 fL (7.4-10.4); Monocytes # 0.9 10^3/uL (0.2-0.9); Monocytes % 2.9 %; Neutrophils % 88.4 %; Nucleated Red Blood Cells # 0.1 /100WBC; Nucleated Red Blood Cells % 0.2 %; Platelet Count 404 10^3/cmm (157-399); Red Cell Distribution Width 15.9 % (12.1-15.1)
[2023-11-13 02:48] LABS: White Blood Count 30.89 10^3/uL (3.29-11.43)
[2023-11-13] MEDS: pantoprazole 40 mg SDV IVP (06:01)
[2023-11-13] MEDS: albumin 25 G/100 ML BAG 60 G IV (06:01)
[2023-11-13] MEDS: vancomycin 1,250 MG/250 ML PIGGYBACK 250 MG IV (08:06)
[2023-11-13] MEDS: collagenase oint 30 gm 1 APPLIC TOPICAL (08:06)
[2023-11-13 08:21] LABS: INR 1.29 (0.8-1.2)
[2023-11-13 08:32] LABS: Alanine Aminotransferase 49 U/L (0-41); Albumin Level 3.9 g/dL (3.5-5.2); Alkaline Phosphatase 92 U/L (40-130); Anion Gap 16.9 (5-19); Aspartate Amino Transferase 58 U/L (0-40); Blood Urea Nitrogen 62 mg/dL (8-23); Calcium 8.5 mg/dL (8.5-10.5); Carbon Dioxide 24 mmol/L (22-29); Chloride 104 mmol/L (98-107); Globulin 2.9 g/dL (1.3-4.6); Glomerular Filtration Rate 31.8 mL/min (90-130); Glucose 83 mg/dL (65-115); Osmolality Calculated 309 mOsm/kg (285-295); Potassium 3.9 mmol/L (3.5-5.1); Sodium 141 mmol/L (136-145); Total Bilirubin 0.3 mg/dL (0.15-1.2); Total Protein 6.8 g/dL (6.6-8.7)
[2023-11-13] MEDS: budesonide 0.5 mg/2 mL Neb INHALATION ×2 (08:34→20:06)
--- NOTE | 2023-11-13 09:27 | P.PN_ITS ---
Documented by User: JIMBO Yates STDSHAUNA 11/13/23 10:04 Subjective 2 Subjective: Peter Whitman is a 67-year-old male was transferred to the ICU yesterday after being found down for several hours despite screening. He is noticeably feeling better today with stable blood pressure, heart rate without Levophed, albumin or IV NS. Patient is alert and oriented to person place and time. Cellulitis of right lower extremity is healing, wound has been dried and dressings changed twice since yesterday. He has not had any nausea or vomiting but did have multiple black stools last night. Crackles were noted on pulmonary exam last night which was treated with furosemide. Today lungs are clear. Patient is asking about breakfast. Vitals/I&O/Wt Last Vital Signs Temp 98.3 F 11/13/23 07:00 Pulse 96 11/13/23 08:40 Resp 16 11/13/23 08:30 BP 124/84 11/13/23 08:00 Pulse Ox 94 11/13/23 08:30 O2 Del Method Nasal Cannula 11/13/23 08:30 O2 Flow Rate 5 11/13/23 08:30 11/12/23 11/13/23 11/13/23 22:59 06:59 14:59 Intake Total 1347.5 / 2703.906 360 / 3063.906 150 / 150 Output Total 850 / 2050 1500 / 3550 Balance 497.5 / 653.906 -1140 / -486.094 150 / 150 Weight last 48 hrs Weight 209 lb 4 oz Weight 209 lb 4 oz Weight 217 lb Weight 217 lb Weight 234 lb 11.2 oz Physical Exam 2 Const: COMMON NORMALS: no acute distress and patient oriented x3 GENERAL APPEARANCE: cooperative HENMT: OTHER: Normocephalic/atraumatic Eye: OTHER: Extraocular movements intact Neck/C-Spine: COMMON NORMALS: no JVD OTHER: No pain or decreased range of motion Resp: COMMON NORMALS: normal respiratory effort and clear to auscultation bilaterally EFFORT & INSPECTION: Yes able to speak in complete sentences A USCULTATION: clear to auscultation bilaterally and diminished lung sounds Cardio: COMMON NORMALS: no JVD, regular rate and regular rhythm RATE: r egular rate RHYTHM: regular rhythm PERIPHERAL PULSES: radial pulses present : OTHER: Deferred Extremity: NARRATIVE EXTREMITY EXAM: No new bruises, no edema, cellulitis of right lower extremity shows decreased swelling from yesterday, and dark red color today changed from bright red yesterday, wounds are wet, no significant drainage present, sensation and movement are intact in upper and lower extremities bilaterally, capillary refill <1 sec Neuro: COMMON NORMALS: patient oriented x3 OTHER: no focal deficits Psych: COMMON NORMALS: mental status grossly normal, cooperative and normal affect Urinary Catheter Management: Love: Cath Placed During This Visit: yes Reason for Continuing Indwelling Catheter: Accurate Measurement of Urinary Output in Critically Ill Patients Urinary Catheter Date of Insertion: 11/11/23 Urinary Catheter Time of Insertion: 06:18 Data 11/13/23 02:10 11/13/23 08:01 Micro: Microbiology 11/11/23 06:15 Urine Culture - Preliminary Urine,Clean Catch Gram Negative Rods A&P Assessment and plan (1) Sepsis: (2) Cellulitis: (3) Hypothermia: (4) Hypotension: (5) Anemia associated with acute blood loss: (6) Hyperkalemia: (7) ALTA (acute kidney injury): (8) Acute encephalopathy: Plan Patient is recovering from likely cellulitis induced sepsis and acute upper GI bleed. Blood pressure is stable without norepinephrine, albumin, or IV NS Hemoglobin is currently stable Patient is being treated with furosemide 40 mg IV for previous pulmonary edema which can be reduced patient remains asymptomatic Start budesonide with DuoNeb Progress diet Coding Level of Care Code Critical Care >/= 30 minutes Diagnoses Sepsis A41.9 Cellulitis L03.90 Hypothermia T68.XXXA Hypotension I95.9 Anemia associated with acute blood loss D62 Hyperkalemia E87.5 ALTA (acute kidney injury) N17.9 Acute encephalopathy G93.40 Time Spent (min) 42 Documented by User: Jadiel Judge MD 11/13/23 10:20 Subjective 2 Subjective: Peter Whitman is a 67-year-old male was admitted to the ICU on November 11 with concerns of sepsis from right lower extremity cellulitis as well as GI bleed. He required pressors initially. Today the patient reported initially no significant abdominal pain. He was alert, and able to answer questions. He reported that he was hungry. Later on before note was completed, I was called by the nurse that the patient was having abdominal discomfort and lethargic. On evaluation of the patient he was lethargic with fluids slurred speech. He was still alert, oriented, and reported some abdominal pain as well as thirst. Nurse had already done a blood sugar which was greater than 100. Medications: Reviewed: Yes Physical Exam 2 Narrative: Lungs diminished breath sounds Abdomen has some tenderness. Hypoactive bowel sounds. Slightly distended. Neuro no obvious focal deficits. Some slurring of speech. Moving all 4 extremities. Able to indicate wants. Urinary Catheter Management: Love: Cath Placed During This Visit: yes Data 11/13/23 02:10 11/13/23 08:01 A&P Assessment and plan (1) Sepsis: Patient presents with sepsis presumably from his right lower extremity cellulitis He has evidence of endorgan dysfunction with acute encephalopathy, acute kidney injury, etc. He has received a sepsis bolus in the emergency department, lactic acid levels, and pressors when he was diagnosed He is receiving broad-spectrum antibiotics in the form of vancomycin and Zosyn which is appropriate He is off pressors, off albumin which has been discontinued. Blood cultures negative to date Appears to be recovering but concerns with abdominal pain this morning. (2) Cellulitis: Patient with evidence of right lower extremity cellulitis Vancomycin and Zosyn currently MRSA PCR pending He has had a recent cellulitis, was on Bactrim, and apparently had significant blisters that have some tissue loss. Infection may still be present. Surgery consult will be obtained, for evaluation of wound and possible need for debridement. Arterial duplex negative for any ischemia (3) Hypothermia: Resolved (4) Hypotension: Resolved. Now off norepinephrine and albumin (5) Anemia associated with acute blood loss: This is secondary to upper GI bleed. By endoscopy on November 12 significant gastric ulcerations were noted but no active bleeding Continue Protonix 40 mg IV every 12 hours Note that he was on Aleve at home Avoid any anticoagulant As patient has recurrence of discomfort in his abdomen, and appears to have confusion will obtain a stat hemoglobin. He has been transfused 2 units of packed red blood cells on admission and 1 unit approximately 12 hours following this. 3 units total. (6) Hyperkalemia: Resolved (7) ALTA (acute kidney injury): Love has been placed No evidence of obstruction on CT scan CK was checked and normal Renal function improving (8) Acute encephalopathy: Patient with evidence of mentation slowing consistent with acute encephalopathy Appears to be improving but has recurrence today. Etiology being worked up with ABG, glucose, stat CT Plan Abdominal pain. Awaiting CT abdomen pelvis. This is to make sure no perforation is occurred. ABG is abnormal with CO2 retention which may explain some of his encephalopathy. Will initiate BiPAP following CT, if no organ perforation is present. Consider further diuresis to improve respiratory condition if no organ perforation is present Currently appears somewhat deteriorated from this morning Full code SCDs for DVT prophylaxis, anticoagulation contraindicated secondary to GI bleeding Attestations 2 Medical Necessity Statement*: Needs continued hospital stay secondary to significant GI bleed with anemia Critical Care Time: The high probability of a clinically significant, sudden or life threatening deterioration of the patient's [gastrointestinal, hematologic, neurologic, infectious] system(s) required my full and direct attention, intervention and personal management. The critical care time is as shown. This time is in addition to time spent performing any reported procedures but includes the following: [x] Data and vital sign review and interpretation [x] Patient assessment, examination and intervention [x] Documentation [x] Medication orders and management Critical Care Time (min): 42 Coding Level of Care Code Critical Care >/= 30 minutes Diagnoses Sepsis A41.9 Cellulitis L03.90 Hypothermia T68.XXXA Hypotension I95.9 Anemia associated with acute blood loss D62 Hyperkalemia E87.5 ALTA (acute kidney injury) N17.9 Acute encephalopathy G93.40 Time Spent (min) 42
[2023-11-13] MEDS: piperacillin-tazobactam 3.375 GM in sodium chloride 0.9% (plus) 50 ML IV ×2 (09:35→22:07)
--- NOTE | 2023-11-13 10:04 | CT_ITS ---
WS: [id number] CT ABDOMEN PELVIS TECHNIQUE: Noncontrast CT of the abdomen and pelvis with coronal and sagittal reformatted images. CLINICAL INFORMATION: abdominal pain COMPARISON: CT 11/11/2023 DLP: 1115.[address] scans at [facility] use at least one of these dose optimization techniques: automated e xposure control; mA and/or kV adjustment per patient size (includes targeted exams where dose is matc hed to clinical indication); or iterative reconstruction. FINDINGS: Small amount of pleural fluid in the lung bases with compressive atelectasis RIGHT greater than LEFT. This is progressed compared to 11/11/2023. Cholelithiasis. Fluid distended stomach with air-fluid lev el. Small amount of peripancreatic inflammatory stranding and edema is new from the recent study. Rec ommend correlation with pancreatic enzymes for pancreatitis. No drainable fluid collections. Noncontr ast liver appears normal. Adrenal glands are normal. Bilateral renal cortical atrophy. No hydronephrosis in either kidney. No o bstructing renal or ureteral calculi. Small amount of inflammatory stranding and edema in the RIGHT r etroperitoneum. Love catheter in place. Mild aortic calcification. Sigmoid diverticulosis with mild diverticulitis appears improved compared to the recent study. No drainable abscess or fluid collectio n. Small fat-containing umbilical hernia. Disc base narrowing L4-L5 and L5-S1. IMPRESSION: 1. Previously-described diverticulitis appears improved compared to the recent study. No fluid colle ctions. 2. New mesenteric edema in the upper abdomen about the pancreas and duodenum. Recommend correlation for pancreatitis. No drainable abscess or fluid collection. 3. No hydronephrosis in either kidney. 4. Small amount of pleural fluid in the lung bases with compressive atelectasis RIGHT greater than L EFT progressed compared to previous. 5. Fluid distended stomach with air-fluid level. 6. Small amount of nonspecific induration in the RIGHT retroperitoneum. No increased attenuation ret roperitoneal hematoma.
[2023-11-13 10:12] LABS: ABG PCO2 52.6 mmHg (35-45); ABG PH Result 7.29 (7.35-7.45); Arterial Blood Gas Hematocrit 24.1 % (42-52); Base Excess ABG -1.7 mmol/L (-2.0-2.0); Blood Gas Allen Test Pos; Blood Gas Operator Identificat GD; Blood Gas Sample Site Radial, left; Blood Gas Sample Type Arterial; HCO3 ABG 25.1 mmol/L (22-26); Oxygen Device NC; PO2 ABG 55.3 mmHg (80.0-100.0); PO2 FiO2 Ratio Arterial Blood 0
--- NOTE | 2023-11-13 10:12 | ECG_ITS ---
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 Measurements Intervals [place] Rate: 99 P: 62 WY: 169 QRS: 36 QRSD: 95 T: 85 QT: 340 QTc: 436 Interpretive Statements SINUS RHYTHM SEPTAL MYOCARDIAL INFARCTION , PROBABLY OLD [40+ ms Q WAVE IN V1/V2] Compared to ECG 11/11/2023 07:18:00 Myocardial infarct finding now present Electronically Signed On 11-14-2023 6:48:31 [employer] by Andrade Guo M.D. [id number]
[2023-11-13 10:25] LABS: Hematocrit 23.1 % (37-53)
[2023-11-13 10:41] LABS: Lactate (Lactic Acid level) 0.5 mmol/L (0.5-2.2)
--- NOTE | 2023-11-13 11:00 | XRR_ITS ---
PROCEDURE INFORMATION: Exam: XR Chest Exam date and time: 11/13/2023 11:07 AM Age: 67 years old Clinical indication: Device placement; Ng tube; Additional info: Og tube placement TECHNIQUE: Imaging protocol: Radiologic exam of the chest. Views: 1 view. COMPARISON: CR XR chest 1V portable [id number] 11/11/2023 7:33 AM FINDINGS: Tubes, catheters and devices: Interval placement of enteric tube with tip and side port overlying the stomach. Right central venous catheter is unchanged. Lungs: No consolidation. Pleural spaces: No sizable pleural effusion or pneumothorax. Heart/Mediastinum: No cardiomegaly. Bones/joints: Unremarkable. XR/XR chest 1V portable [id number] IMPRESSION: Interval placement of enteric tube with tip and side port overlying the stomach.
--- NOTE | 2023-11-13 11:01 | PC.NURSE ---
approximately 0950 patient c/o severe abdominal pressure, presented more lethargic and slurred speech than previous assessment c;o sob and recquiring more o2, glucose WNL, DR. Judge notifed, orders received for abg ekg and abd ct. NG ordered after CT, unable to insert by 2 nurses OG then inserted
[2023-11-13 11:13] LABS: Glucose Point of Care 92 mg/dL (70-110)
[2023-11-13] MEDS: FUROsemide 10 mg/mL SDV 4mL 40 MG IVP (11:17)
[2023-11-13 14:05] LABS: Methicillin-Resist S.aureu PCR NOT DETECTED (NOT DETECTED)
[2023-11-13 14:24] LABS: Clostridium Difficile PCR NOT DETECTED (NOT DETECTED)
--- NOTE | 2023-11-13 15:35 | PC.NURSE ---
OG tube D/C per v.o. from Dr. Judge
--- NOTE | 2023-11-13 16:27 | P.PN_ITS ---
Subjective 2 Subjective: No acute events in the last 24 hours. This morning patient was noted to be elevated more lethargic and complaining of some abdominal pain. I was called to the bedside to evaluate the patient. Upon arrival he was complaining of minimal abdominal pain, appearing disoriented. Vitals/I&O/Wt Last Vital Signs Temp 98.3 F 11/13/23 07:00 Pulse 108 H 11/13/23 16:00 Resp 19 H 11/13/23 16:00 BP 120/75 11/13/23 16:00 Pulse Ox 94 11/13/23 16:00 O2 Del Method Nasal Cannula 11/13/23 08:30 O2 Flow Rate 5 11/13/23 08:30 FiO2 30 11/13/23 10:45 11/13/23 11/13/23 11/13/23 06:59 14:59 22:59 Intake Total 410 / 3113.906 150 / 150 Output Total 1500 / 3550 Balance -1090 / -436.094 150 / 150 Weight last 48 hrs Weight 209 lb 4 oz Weight 209 lb 4 oz Weight 217 lb Weight 217 lb Physical Exam 2 GI: OTHER: Abdomen was soft, minimally tender to palpation, distended. Urinary Catheter Management: Love: Cath Placed During This Visit: yes Reason for Continuing Indwelling Catheter: Accurate Measurement of Urinary Output in Critically Ill Patients Urinary Catheter Date of Insertion: 11/11/23 Urinary Catheter Time of Insertion: 06:18 Data 11/13/23 10:03 11/13/23 08:01 Micro: Microbiology 11/11/23 06:15 Urine Culture - Final Urine,Clean Catch Escherichia coli 11/11/23 07:33 Blood Culture - Preliminary Blood 11/11/23 06:56 Blood Culture - Preliminary Blood A&P Assessment and plan (1) Diverticulitis: (2) Sepsis: (3) Gastric ulcer: Plan After complete history, physical examination revealed available clinical data the following is my assessment. Patient underwent upper endoscopy yesterday with control of bleeding, no significant bleeding noted after finalization of endoscopy, ulcerations on the pylorus appeared. The but without evidence of exposed vessels at the base. This morning patient was elevated confused complaining of some abdominal pain I was called to the bedside for evaluation to rule out possible perforation of the stomach due to the ulcerations or endoscopic procedure. On examination abdominal exam was quite benign a CT scan of the abdomen and pelvis was obtained which shows no evidence of intra- abdominal free air, no evidence of thickening at the level of the stomach that might suggest a perforation. There was some edema and stranding at the level of the retroperitoneum around the pancreas that raises the concern for the possibility of a developing pancreatitis. There was retained air and fluid in the stomach. Diverticulitis that was previously noted appear to be improving. At this point no additional surgical intervention is being considered. Medical management per medical ICU team is appreciated. Right lower extremity wounds should continue to have daily wound care by nursing staff as indicated in my previous evaluation. General surgery remains available in the case of further deterioration of change of clinical status that indicate need for additional intervention. Attestations 2 Medical Necessity Statement*: Per medical team Coding Level of Care Code Acute Code for [facility] F[facility] Diagnoses Diverticulitis K57.92 Sepsis A41.9 Gastric ulcer K25.9
[2023-11-13] MEDS: saliva stimulant spray 30 mL Btl 1 SPRAY MUCOUS MEM (17:02)
[2023-11-13] MEDS: ipratropium-albuterol 3 mL Neb INHALATION (20:06)
[2023-11-13] MEDS: hyDROXYzine 25 mg Capsule PO (20:35)
[2023-11-13] MEDS: ALPRAZolam 0.5 mg Tablet 0.25 MG PO (23:27)
[2023-11-14] VITALS (56 sets, daily range): BP systolic 90–151; BP diastolic 57–91; PULSE 91–120; RESP 16–31; TEMP 36.4–37.7; O2SAT 79–100
[2023-11-14 05:13] LABS: Basophils # 0.1 10^3/uL (0.0-0.1); Basophils % 0.3 %; Eosinophils # 0.1 10^3/uL (0.0-0.8); Eosinophils % 0.2 %; Hematocrit 25.5 % (37-53); Lymphocytes # 0.9 10^3/uL (0.8-4.8); Lymphocytes % 2.1 %; Mean Corpuscular HGB Conc 31.4 g/dL (30-55); Mean Corpuscular Hemoglobin 27.9 pg (27-33); Mean Corpuscular Volume 88.9 fl (82-101); Mean Platelet Volume 9.7 fL (7.4-10.4); Monocytes # 1.2 10^3/uL (0.2-0.9); Monocytes % 2.9 %; Neutrophils # 37.54 10^3/uL (1.8-7.7); Neutrophils % 91.5 %; Nucleated Red Blood Cells # 0.2 /100WBC; Nucleated Red Blood Cells % 0.4 %; Platelet Count 442 10^3/cmm (157-399); Red Blood Count 2.87 10^6/uL (3.85-5.65); Red Cell Distribution Width 16.6 % (12.1-15.1)
[2023-11-14 05:23] LABS: White Blood Count 41.03 10^3/uL (3.29-11.43)
[2023-11-14 05:31] LABS: Anion Gap 18.9 (5-19); Blood Urea Nitrogen 37 mg/dL (8-23); Calcium 8.8 mg/dL (8.5-10.5); Carbon Dioxide 25 mmol/L (22-29); Chloride 109 mmol/L (98-107); Glomerular Filtration Rate 46.8 mL/min (90-130); Glucose 88 mg/dL (65-115); Magnesium 2.3 mg/dL (1.7-2.3); Osmolality Calculated 316 mOsm/kg (285-295); Potassium 3.9 mmol/L (3.5-5.1); Sodium 149 mmol/L (136-145)
[2023-11-14] MEDS: pantoprazole 40 mg SDV IVP ×2 (05:41→17:52)
--- NOTE | 2023-11-14 07:35 | P.PN_ITS ---
Documented by User: JIMBO Yates STDSHAUNA 11/14/23 09:21 Subjective 2 Subjective: Peter Whitman is a 67-year-old white male was admitted to the ICU on November 11 for sepsis from cellulitis of the right lower extremity and upper GI bleed. He required pressors and this initially. Today patient is alert and conversational reports no abdominal pain or nausea, vomiting or black and tarry stools since yesterday. He reports little pain in the right lower extremity. And is asking for something to drink. Today patient's white count was elevated and urine culture showed E. coli. Edema and rubor of right lower extremity is decreased however there is been mild expansion of the wound locally with induration. Wound is wet with minimal drainage. Vitals/I&O/Wt Last Vital Signs Temp 98.4 F 11/14/23 06:00 Pulse 109 H 11/14/23 06:00 Resp 30 H 11/14/23 07:01 BP 129/71 11/14/23 06:00 Pulse Ox 94 11/14/23 05:00 O2 Del Method High Flow Nasal Cannula 11/14/23 07:01 O2 Flow Rate 7 11/14/23 07:01 FiO2 30 11/13/23 10:45 11/13/23 11/14/23 11/14/23 22:59 06:59 14:59 Intake Total 120 / 320 120 / 440 Output Total 2500 / 2500 1450 / 3950 Balance -2380 / -2180 -1330 / -3510 Weight last 48 hrs Weight 206 lb 1.6 oz Weight 206 lb 1.6 oz Weight 209 lb 4 oz Weight 209 lb 4 oz Physical Exam 2 Narrative: General conversational, oriented to person place and time, ill-appearing, no apparent distress, pleasant mood HEENT normocephalic atraumatic mucous membranes dry neck supple no pain or decreased movement, Respiratory decreased breath sounds bilaterally, upper airway expiratory wheeze prolonged expiratory phase, no crackles Cardiac normal rate and rhythm heart sounds distant pulses 2+ throughout, NO edema on left lower EXTR Abdomen normal active bowel sounds, mildly tense and distended, no pain reported : Love Extremities uses on upper extremities bilaterally are unchanged without pain, Edema and rubor of right lower extremity is decreased however there is been mild expansion of the wound locally with induration. Wound is wet with minimal drainage. No motor or sensation deficits in the extremities bilaterally upper and lower Neuro no focal deficit Urinary Catheter Management: Love: Cath Placed During This Visit: yes Reason for Continuing Indwelling Catheter: Accurate Measurement of Urinary Output in Critically Ill Patients Urinary Catheter Date of Insertion: 11/11/23 Urinary Catheter Time of Insertion: 06:18 Sepsis: Focused sepsis exam: resolved Data 11/14/23 04:59 11/14/23 04:59 Micro: Microbiology Expand antibiotic coverage to meropenem from Zosyn 11/11/23 06:15 Urine Culture - Final Urine,Clean Catch Escherichia coli 11/11/23 07:33 Blood Culture - Preliminary Blood 11/11/23 06:56 Blood Culture - Preliminary Blood A&P Assessment and plan (1) Sepsis: Patient presents with sepsis presumably from his right lower extremity cellulitis Sepsis was resolved (2) Cellulitis: Patient with evidence of right lower extremity cellulitis Vancomycin and Zosyn currently MRSA PCR pending Edema and rubor of right lower extremity is decreased however there is been mild expansion of the wound locally with increased induration. Wound is wet with minimal drainage. Dressings were changed surgery was consulted and debridement planned continue changing dressings wet-to-dry multiple times a day (3) Hypothermia: Resolved (4) Hypotension: Resolved. Now off norepinephrine and albumin (5) Anemia associated with acute blood loss: This is secondary to upper GI bleed. By endoscopy on November 12 significant gastric ulcerations were noted but no active bleeding Continue Protonix 40 mg IV every 12 hours Note that he was on Aleve at home Avoid any anticoagulant Patient is currently in no acute distress blood pressure stable He has been transfused 2 units of packed red blood cells on admission and 1 unit approximately 12 hours following this. 3 units total. (6) Hyperkalemia: Resolved (7) ALTA (acute kidney injury): Love has been placed No evidence of obstruction on CT scan CK was checked and normal Renal function improving (8) Acute encephalopathy: Patient with evidence of mentation slowing consistent with acute encephalopathy Appears to be improving today no recurrence since yesterday Patient was able to get up out of bed and sit in chair He is alert and oriented person place time and situation Plan Abdominal pain resolved. No GI perforation visualized ulcerations visualized by endoscopy free air in stomach on CT, reduced by nasogastric tube. Nausea resolved. No black or tarry stools since yesterday ABG is abnormal with CO2 retention which may explain some of his previous encephalopathy. Patient is receiving budesonide DuoNeb and BiPAP. Consider further diuresis to improve respiratory condition return Patient has UTI positive for E. coli and increased white blood cell Expand antibiotic coverage from Zosyn to meropenem and continue vancomycin Full code SCDs for DVT prophylaxis, anticoagulation contraindicated secondary to GI bleeding Coding Level of Care Code 55812 Diagnoses Sepsis A41.9 Cellulitis L03.90 Hypothermia T68.XXXA Hypotension I95.9 Anemia associated with acute blood loss D62 Hyperkalemia E87.5 ALTA (acute kidney injury) N17.9 Acute encephalopathy G93.40 Time Spent (min) 35 Documented by User: Jadiel Judge MD 11/14/23 11:36 Subjective 2 Subjective: Peter Whitman is a 67-year-old white male was admitted to the ICU on November 11 for sepsis from cellulitis of the right lower extremity and upper GI bleed. He required pressors and this initially. Today patient is alert and conversational reports no abdominal pain or nausea, vomiting or black and tarry stools since yesterday. He reports little pain in the right lower extremity. And is asking for something to drink. Physical Exam 2 Urinary Catheter Management: Love: Cath Placed During This Visit: yes Data 11/14/23 04:59 11/14/23 04:59 A&P Assessment and plan (1) Sepsis: (2) Cellulitis: Patient with evidence of right lower extremity cellulitis Vancomycin and Zosyn currently. Discontinuing Zosyn and expanding coverage to meropenem secondary to increasing white blood cell count. MRSA PCR is negative. As soon as clinical improvement occurs discontinue vancomycin. Edema and rubor of right lower extremity is decreased however there is been mild expansion of the wound locally with increased induration. Dressings were changed surgery was consulted and debridement planned continue changing dressings wet-to-dry multiple times a day (3) Hypothermia: (4) Hypotension: (5) Anemia associated with acute blood loss: This is secondary to upper GI bleed. By endoscopy on November 12 significant gastric ulcerations were noted but no active bleeding Continue Protonix 40 mg IV every 12 hours Note that he was on Aleve at home Avoid any anticoagulant Patient is currently in no acute distress blood pressure stable He has been transfused 2 units of packed red blood cells on admission and 1 unit approximately 12 hours following this. 3 units total. Hemoglobin is stable today (6) Hyperkalemia: (7) ALTA (acute kidney injury): (8) Acute encephalopathy: Patient with evidence of mentation slowing consistent with acute encephalopathy Appears to be improving today no recurrence since yesterday Patient was able to get up out of bed and sit in chair He is alert and oriented person place time and situation No evidence of encephalopathy today. Plan Abdominal pain resolved. No GI perforation visualized ulcerations visualized by endoscopy free air in stomach on CT, reduced by nasogastric tube. Nausea resolved. No black or tarry stools since yesterday ABG is abnormal with CO2 retention which may explain some of his previous encephalopathy. Patient is receiving budesonide DuoNeb and BiPAP. COPD. Patient is requiring BiPAP intermittently. DuoNeb is being given every 4 hours now and budesonide twice a day. If significant increase in wheezing consider adding steroids although this will increase risk of rebleed of ulcers, and could impair treatment of infection Hyponatremia. Patient mildly hyponatremic today secondary to aggressive diuresis yesterday. Overall he is over 3 L down. Will add a slight amount of D5W, and recheck CBC and BMP tomorrow. Patient has UTI positive for E. coli sensitive to Zosyn Full code SCDs for DVT prophylaxis, anticoagulation contraindicated secondary to GI bleeding Attestations 2 Medical Necessity Statement*: Needs continued hospitalization secondary to cellulitis, GI bleed, and this patient with increasing white blood cell count and respiratory compromise requiring BiPAP Diagnoses Sepsis A41.9 Cellulitis L03.90 Hypothermia T68.XXXA Hypotension I95.9 Anemia associated with acute blood loss D62 Hyperkalemia E87.5 ALTA (acute kidney injury) N17.9 Acute encephalopathy G93.40 Time Spent (min) 35
[2023-11-14] MEDS: ipratropium-albuterol 3 mL Neb INHALATION ×4 (07:41→23:59)
[2023-11-14] MEDS: budesonide 0.5 mg/2 mL Neb INHALATION ×2 (07:50→19:32)
--- NOTE | 2023-11-14 08:06 | P.PN_ITS ---
Subjective 2 Subjective: Patient has remained stable over the last 24 hours. Does not complain of pain or any other significant symptoms. Denies nausea or vomit at this moment. Vitals/I&O/Wt Last Vital Signs Temp 98.4 F 11/14/23 06:00 Pulse 119 H 11/14/23 07:44 Resp 19 H 11/14/23 07:41 BP 129/71 11/14/23 06:00 Pulse Ox 91 11/14/23 07:44 O2 Del Method BiPAP 11/14/23 07:41 O2 Flow Rate 7 11/14/23 07:01 FiO2 40 11/14/23 07:44 11/13/23 11/14/23 11/14/23 22:59 06:59 14:59 Intake Total 120 / 320 120 / 440 Output Total 2500 / 2500 1450 / 3950 Balance -2380 / -2180 -1330 / -3510 Weight last 48 hrs Weight 206 lb 1.6 oz Weight 206 lb 1.6 oz Weight 209 lb 4 oz Weight 209 lb 4 oz Physical Exam 2 GI: OTHER: Abdomen is distended, soft, nontender to palpation. Extremity: OTHER: Right lower extremity wounds appear to have worsened over the last 24 to 48 hours no significant more slough in the posterior wounds of the calf, there is no significant purulent discharge but I cannot evaluate the base of the wounds due to the slough. Is important to note that erythema and edema have significantly improved since last evaluation. Urinary Catheter Management: Love: Cath Placed During This Visit: yes Reason for Continuing Indwelling Catheter: Accurate Measurement of Urinary Output in Critically Ill Patients Urinary Catheter Date of Insertion: 11/11/23 Urinary Catheter Time of Insertion: 06:18 Data 11/14/23 04:59 11/14/23 04:59 Micro: Microbiology 11/11/23 06:15 Urine Culture - Final Urine,Clean Catch Escherichia coli 11/11/23 07:33 Blood Culture - Preliminary Blood 11/11/23 06:56 Blood Culture - Preliminary Blood A&P Assessment and plan (1) Sepsis: (2) Cellulitis: Plan Is a 67-year-old male who was admitted with sepsis with suspected source being right lower extremity as well as upper GI bleeding. He underwent endoscopy about 2 days ago showing multiple ulceration in the stomach. Yesterday he was noted to have increased abdominal pain and therefore a new CAT scan was done showing evidence of a possible early pancreatitis and no evidence of significant gastrointestinal changes suggesting perforation, no free air. In the last 24 hours patient has remained stable but this morning his white count was noted to be trending up to 40,000. I was asked to evaluate the patient for this finding. My evaluation right lower extremity wounds appear to be slightly worse on during initial interview there is some more slough at the base of the wounds and minimal amount of discharge especially from the lower lateral wound. After review of the wounds I have agreed to take the patient to the OR for debridement to rule out this as a possible source of his elevated white count. I discussed with the patient the risk and benefits of the operation including the need for additional debridements, bleeding, infection, subsequent need for amputation on the right lower extremity, progressively infection, sepsis and . Patient shows understanding and agrees to proceed. I have discussed the case with the OR and due to staff availability we will likely be able to do this debridement somewhere around 4 PM today Attestations 2 Medical Necessity Statement*: Per medical team Coding Level of Care Code Acute Code for [facility] Fwd Diagnoses Sepsis A41.9 Cellulitis L03.90
[2023-11-14] MEDS: dextrose 5% 1,000 ML 50 ML IV (09:14)
[2023-11-14] MEDS: meropenem 1,000 MG in sodium chloride 0.9% (plus) 50 ML 100 MG IV ×2 (09:14→17:53)
[2023-11-14] MEDS: neomycin-poly-bacitracin oint 28 gm 1 APPLIC TOPICAL (09:24)
--- NOTE | 2023-11-14 11:07 | PC.PHAR ---
Renal function improved. Changed Vancomycin from 1250mg q48h to 1500mg q24h Vanco Initial Dosing Patient Information Sex M M/F Last Name DC AGE 67 years First Name RIKKI Ht 67 inches : 1955 ABW 93.485 kg Location: ICU-9 IBW 66.1 kg If loading dose given: DW 77.054 kg Loading DOSE: 1250 mg SCr 1.5 mg/dl This Dose = 16.2 mg/kg CrCl 45.3 ml/min 1st dose Cmax: 21.2 mcg/ml Vd 57.7905 liters Time elapsed: 48.0 hrs Ke 0.042 hrs-1 Serum Conc. = 2.8 mcg/ml t1/2 17 hrs Hrs until 20 mcg/ml 2.4 hrs Hrs until 15 mcg/ml 9.2 hours Hrs until 10 mcg/ml 18.9 hours Dose Tau (Freq) Levels expected Standard 1500 24 Cmax 39.2 Targets 19.47 24.8 Cpeak 37.6 25 to 40 mg/kg hours Cmin 15.6 10 to 20
--- NOTE | 2023-11-14 12:11 | P.OP_ITS ---
Operative Report Date of procedure: November 14, 2023 Pre-op diagnosis: Cellulitis of the right lower extremity Post-op diagnosis: Cellulitis of the right lower extremity with subcutaneous abscess formation Post-op findings: On the distal right lower extremity above the ankle there were 3 wounds 1 in the anterolateral position on 2 on the posterior area of the leg, after evaluation of these wounds it was noted that all wounds were actually connected and superficial skin between the wounds was completely devitalized and from the underlying tissue layers. Significant amount of devitalized tissue and slough was noted at this area, after debridement the wound measured 13 x 13 x 1 cm. Underlying fascia and muscle appear to be viable. Procedure done: Wide debridement and washout of right lower extremity cellulitis with ulceration Specimens removed/disposition: Wound cultures Pathology: Skin and subcutaneous tissue Surgeon: Brent Cummings MD Freight Car Loader: IVONE OR Staff Estimated blood loss: 10 Complications: none Brief History: 67-year-old male who is admitted with sepsis likely due to right lower extremity cellulitis and upper GI bleeding. After evaluation this morning there was noticeably worsening of his right lower extremity wounds and therefore we decided to bring the patient to the OR for debridement. All the risk and benefits of the procedure were discussed with the patient and documented in my preop note. Procedure: Patient was brought into the OR. General esthesia with LMA was given. The right lower extremity was prepped and draped in the usual sterile fashion. Timeout was conducted. The right lower extremity wounds were evaluated, there was 3 significant wounds 1 in the inferolateral portion of the leg right above the ankle measuring about 3 x 4 cm and noted to be tunneling to the level of the ankle and also to the posterior leg and communicated via tunnel with the posterior leg wounds, the posterior leg wounds measure about 5 x 4 cm and 1 x 2 cm they were all communicating via tunneling of the subcutaneous tissue. After noticing this extensive tunneling I realized that the only option at this point was to remove the overlying devitalized skin therefore making this 3 wounds into a large wound in the lower extremity. The skin that was noted to be devitalized was removed using electrocautery until healthy bleeding tissue was noted on the edges. After the kayleigh of this wound the base was noted to have significant slough, this level was debrided with sharp and blunt approach using a curved Mantilla scissor and also curettes. Once all the slough was removed the underlying fascia and muscle appeared to be viable and no further debridement was pursued in this direction. On the medial aspect of the wound there was a small amount of tunneling that was probed but no evidence of significant purulence was noted, the wound was washed out with Pulsavac in all directions, hemostasis was obtained, after debridement was finished I proceeded to express the ankle and lower extremity to evaluate for the presence of purulence or additional subcutaneous fluid pockets, no evidence of further drainage was noted. The wound was then packed using wet Kerlix gauze covered by 4 x 4's and ABD pads, we then wrapped the lower extremity with Kerlix and Manolo bandage. At the end of the procedure all counts were correct, the patient tolerated well the procedure and was transferred to the ICU in critical but stable condition.
--- NOTE | 2023-11-14 12:15 | P.ANESASSM_ITS ---
Pre-Anesthetic Assessment Height/Weight: Height 1.7 m Weight 93.485 kg Temp Pulse Resp BP Pulse Ox O2 Del Method O2 Flow Rate 98.8 F 94 17 134/78 98 High Flow Nasal Cannula 7 11/14/23 10:00 11/14/23 10:00 11/14/23 10:00 11/14/23 10:00 11/14/23 10:00 11/14/23 10:00 11/14/23 10:00 FiO2 40 11/14/23 07:44 Operation Date: 11/12/23 12:15 Proposed Procedures p EGD(Not Applicable) - Brent Cummings MD Operation Date: 11/14/23 12:55 Proposed Procedures p Right lower extremity debridement(Right) - Brent Cummings MD Familial anesthetic complications: none Was Beta Hernan taken within 24 hours: Yes Was Clonidine taken within 24 hours: N/A Social No alcohol and No tobacco Exam alert, oriented x 3 and regular rate & rhythm Airway Submandibular: within normal limits Cervical ROM: within normal limits Mallampati: Class II Pulmonary Chronic Obstructive Pulmonary Disease CV/HEM Anemia, Congestive Heart Failure and Hypertension Sepsis Chronic Renal Insufficiency ALTA GI GI bleed Metabolic Morbid Obesity Anesthetic Plan ASA status: 3 Anesthesia: General Medications/Allergies Home Medications Medication Instructions Recorded Confirmed Last Taken Type albuterol sulfate 90 mcg/actuation 2 puff inhalation Q6H PRN 02/01/21 11/11/23 02/11/21 History aerosol inhaler (ProAir HFA) Shortness Of Breath aspirin 81 mg tablet,delayed 81 mg PO QAM 02/01/21 11/11/23 11/10/23 History release fluticasone propionate 50 1 spray intranasal DAILY 06/06/23 11/11/23 06/06/23 History mcg/actuation nasal spray,suspension naproxen sodium 220 mg capsule 440 mg PO BID PRN Pain 06/06/23 11/11/23 Unknown History (Aleve) furosemide 40 mg tablet 40 mg PO BID 10/23/23 11/11/23 11/10/23 History potassium chloride 10 mEq 10 meq PO BID 10/23/23 11/11/23 11/10/23 History tablet,extended release amlodipine 10 mg tablet 10 mg PO DAILY #90 tabs 11/13/23 Unknown Rx budesonide 160 mcg-glycopyr 9 2 inh inhalation BID #10.7 grams 11/13/23 Unknown Rx mcg-formot 4.8 mcg/actuation HFA inhaler (Breztri Aerosphere) metoprolol tartrate 50 mg tablet 50 mg PO TID #90 tabs 11/13/23 Unknown Rx Allergies Allergy/AdvReac Type Severity Reaction Status Date / Time acetaminophen [From Tylenol] Allergy Unknown Verified 11/11/23 05:16 Opioids - Morphine Analogues Allergy ADR-Halluci Verified 11/11/23 05:16 nating Current Medications Generic Name Dose Route Start Last Admin Trade Name Freq PRN Reason Stop Dose Admin Albuterol/Ipratropium 3 ml 11/14/23 08:00 11/14/23 07:41 Ipratropium-Albuterol 3 Ml Neb INHALATION 3 ml Q4H.RESPIRATORY FREYA Administration Budesonide 0.5 mg 11/13/23 08:00 11/14/23 07:50 Budesonide 0.5 Mg/2 Ml Neb INHALATION 0.5 mg BID.RESPIRATORY FREYA Administration Collagenase 1 applic 11/12/23 09:00 11/14/23 09:25 Collagenase Oint 30 Gm TOPICAL Not Given DAILY FREYA Meropenem 1,000 mg/ Sodium 50 mls @ 100 mls/hr 11/14/23 07:15 11/14/23 09:50 Chloride IV Infused Q8H FREYA Infusion Protocol Dextrose 1,000 mls @ 50 mls/hr 11/14/23 07:45 11/14/23 09:14 D5w IV 50 mls/hr .Q20H FREYA Administration Lanolin 1 applic 11/11/23 15:27 11/11/23 15:36 Lanolin Oint 7 Gm TOPICAL 1 applic PRN PRN Administration DRYNESS Neomycin/Polymyxin/Bacitracin 1 applic 11/14/23 10:00 11/14/23 09:24 Veccxzoh-Wxcv-Dzemvxsdjp Oint 28 Gm TOPICAL 1 applic DAILY FREYA Administration Ondansetron HCl 4 mg 11/11/23 13:22 11/12/23 23:10 Ondansetron 2 Mg/Ml Sdv 2 Ml IVP 4 mg Q6H PRN Administration NAUSEA AND VOMITING Pantoprazole Sodium 40 mg 11/11/23 18:30 11/14/23 05:41 Pantoprazole 40 Mg Sdv IVP 40 mg Q12H FREYA Administration Promethazine HCl 12.5 mg 11/11/23 20:54 11/12/23 23:29 Promethazine 25 Mg/Ml Sdv 1 Ml IM 12.5 mg Q6H PRN Administration NAUSEA Saliva Substitute 1 spray 11/13/23 14:53 11/13/23 17:02 Saliva Stimulant Roxana 30 Ml Btl MUCOUS MEM 1 spray PRN PRN Administration DRY MOUTH PFSH Anesthesia Medical History (Updated 11/13/23 @ 16:32 by Brent Cummings MD) CHF (congestive heart failure), NYHA class III LBBB (left bundle branch block) COPD (chronic obstructive pulmonary disease) COPD (chronic obstructive pulmonary disease) Wears 2 L of oxygen chronically HTN (hypertension) Family History Other Hypertension Denies family history of Diabetes CAD (coronary artery disease) Clotting disorder Dementia Chronic kidney disease (CKD) Suicide Anesthesia complication Bleeding disorder Lung disease Cancer Stroke Social History Smoking and tobacco/nicotine status: former use of tobacco/nicotine Quit status (tobacco/nicotine): has quit using Alcohol intake: former Substance/Drug Use: current Other substance/drug use details: No inhalation. Housing: House Data Anesthesia 11/14/23 04:59 11/14/23 04:59 Short CBC 11/13/23 11/13/23 11/14/23 Range/Units 02:10 10:03 04:59 WBC 30.89 H* 41.03 H* (3.29-11.43) 10^3/uL Hgb 7.60 L 7.40 L 8.00 L (11.27-16.99) g/dL Hct 23.0 L 23.1 L 25.5 L (37-53) % MCV 85.2 88.9 (82-101) fl Plt Count 404 H 442 H (157-399) 10^3/cmm Neut % (Auto) 88.4 91.5 % Neut # (Auto) 27.30 H 37.54 H (1.8-7.7) 10^3/uL BMP 11/13/23 11/14/23 08:01 04:59 Sodium 141 149 H Potassium 3.9 3.9 Chloride 104 109 H Carbon Dioxide 24 25 BUN 62 H 37 H Creatinine 2.1 H 1.5 H Glucose 83 88 Calcium 8.5 8.8 Liver Function 11/13/23 Range/Units 08:01 Total Bilirubin 0.3 (0.15-1.2) mg/dL AST 58 H (0-40) U/L ALT 49 H (0-41) U/L Alkaline Phosphatase 92 (40-130) U/L Albumin 3.9 (3.5-5.2) g/dL Coags 11/13/23 08:01 PT 16.50 H INR 1.29 H ABG 11/13/23 09:58 Specimen Type Arterial Sample Site Radial, left ABG pH 7.29 L ABG pCO2 52.6 H ABG pO2 55.3 L ABG PO2/FiO2 Ratio 0 ABG HCO3 25.1 ABG Base Excess -1.7 O2 Delivery Device Nc O2 Liters/Min 5.0 FiO2 40.0 Microbiology 11/11/23 06:15 Urine Culture - Final Urine,Clean Catch Escherichia coli 11/11/23 07:33 Blood Culture - Preliminary Blood 11/11/23 06:56 Blood Culture - Preliminary Blood Cardiac Studies: 2 Echocardiogram Ultrasound 02/07/21
[2023-11-14] MEDS: vancomycin 1,500 MG/300 ML PIGGYBACK 200 MG IV (12:26)
--- NOTE | 2023-11-14 12:36 | PC.SOCIAL ---
Pg 2 IMM Explained to pt Pg 2 IMM. No questions voiced. Provided pt a copy. Initialed, dated, & timed a copy & placed in chart.
--- NOTE | 2023-11-14 12:44 | PC.NURSE ---
Dressing changes to skin tears performed as well as central line dressing change performed at 0930.
--- NOTE | 2023-11-14 12:45 | PC.NURSE ---
Patient back from surgery at 1220. Placed on bipap and still sleepy. Vitals stable. BP hypertensive, son called and updated. Will continue to monitor.
--- NOTE | 2023-11-14 13:13 | ANE.PACU2 ---
Inpatient post-anesthesia follow up: Airway intact: Yes Vital signs: Temperature 97.7 F Pulse Rate 117 Respiratory Rate 22 Blood Pressure 150/85 Pulse Oximetry 96 Oxygen Delivery Me thod [ Nasal Cannula Current Rate & Del dimitrios] Oxygen Delivery Me thod BiPAP Oxygen Flow Rate [ Current Rate 2 & Delivery] Oxygen Flow Rate 7 Fraction of Inspir ed Oxygen 40 Hydration adequate: Yes Nausea and vomiting: No Pain level: 2 Mental status: Baseline
--- NOTE | 2023-11-14 13:38 | PC.NURSE ---
Patient awake and alert to name, , place, and time. Switched to nasal cannula 8L [place]. Watching Tv.
--- NOTE | 2023-11-14 15:28 | PC.NURSE ---
Bedside report received. Care assumed.
[2023-11-14] MEDS: FUROsemide 10 mg/mL SDV 4mL 40 MG IVP (17:52)
--- NOTE | 2023-11-14 18:37 | PC.NURSE ---
Shift report: pt sat up in chair this am for a few hours. He had BiPap on briefly due to shortness of breath. He has mostly used 7lpm/HFNC today. He did start having more work of breathing this evening, with crackles noted for lung sounds. D5W IVF stopped and Lasix admin. No changes in heart rhythm, sinus tach today. He went to Surgery for debridement of the ulcers on his right lower leg. Dressing remains intact. He has enjoyed the Popsicle and clear liquid diet today, consuming nearly 100%. He had 575ml of urine output .
[2023-11-14] MEDS: dexmedeTOMIDine 0.9 % NaCL 400 MCG/100 ML PREMIX IV (20:16)
--- NOTE | 2023-11-14 20:27 | PC.NURSE ---
At the beginning of this nurse's shift the patient is very anxious stating that they want to be put to bed while they are already in bed and they keep taking off bipap stating that they cannot do it anymore. Dr. Guerrero was contacted and he ordered for precedex to be started.
[2023-11-15] VITALS (77 sets, daily range): BP systolic 87–151; BP diastolic 50–99; PULSE 72–118; RESP 17–34; TEMP 36.9–37.9; O2SAT 87–100; BMI 32.8
[2023-11-15] MEDS: meropenem 1,000 MG in sodium chloride 0.9% (plus) 50 ML 100 MG IV ×3 (01:27→17:00)
[2023-11-15] MEDS: dexmedeTOMIDine 0.9 % NaCL 400 MCG/100 ML PREMIX 16.36 MCG IV (02:43)
[2023-11-15] MEDS: ipratropium-albuterol 3 mL Neb INHALATION ×3 (03:12→11:19)
[2023-11-15 04:06] LABS: Basophils # 0.1 10^3/uL (0.0-0.1); Basophils % 0.2 %; Eosinophils # 0.2 10^3/uL (0.0-0.8); Eosinophils % 0.6 %; Hematocrit 23.6 % (37-53); Lymphocytes # 0.8 10^3/uL (0.8-4.8); Lymphocytes % 2.1 %; Mean Corpuscular HGB Conc 30.1 g/dL (30-55); Mean Corpuscular Hemoglobin 27.3 pg (27-33); Mean Corpuscular Volume 90.8 fl (82-101); Mean Platelet Volume 10.1 fL (7.4-10.4); Monocytes # 0.9 10^3/uL (0.2-0.9); Monocytes % 2.5 %; Neutrophils # 35.16 10^3/uL (1.8-7.7); Neutrophils % 92.6 %; Nucleated Red Blood Cells # 0.1 /100WBC; Nucleated Red Blood Cells % 0.3 %; Platelet Count 442 10^3/cmm (157-399); Red Cell Distribution Width 17.1 % (12.1-15.1)
[2023-11-15 04:14] LABS: White Blood Count 37.94 10^3/uL (3.29-11.43)
[2023-11-15 04:22] LABS: Alanine Aminotransferase 36 U/L (0-41); Alkaline Phosphatase 91 U/L (40-130); Anion Gap 11.6 (5-19); Aspartate Amino Transferase 29 U/L (0-40); Blood Urea Nitrogen 30 mg/dL (8-23); Carbon Dioxide 29 mmol/L (22-29); Chloride 109 mmol/L (98-107); Glomerular Filtration Rate 46.8 mL/min (90-130); Glucose 166 mg/dL (65-115); Osmolality Calculated 312 mOsm/kg (285-295); Potassium 3.6 mmol/L (3.5-5.1); Sodium 146 mmol/L (136-145); Total Bilirubin 0.3 mg/dL (0.15-1.2)
[2023-11-15] MEDS: pantoprazole 40 mg SDV IVP ×2 (05:31→17:40)
--- NOTE | 2023-11-15 06:00 | PC.NURSE ---
Addendum entered by Tr Natarajan RN 11/15/23 06:59: Dr. Brantley ordered a magnesium blood lab and an EKG. Original Note: Patient had precedex running at 0.7mcg/kg/hr. Patient had a run of V-tach that lasted for 10 beats. Precedex was turned off. This nurse will continue to monitor the patient.
--- NOTE | 2023-11-15 07:23 | PC.NURSE ---
Patient was very agitated and anxious when this nurse came into the room. Patient started screaming that he wanted to get the Fuck out of here . Patient was educated by this nurse and CATHY Michaels about the consequences of leaving in his critical state. Patient was de escalated verbally.
--- NOTE | 2023-11-15 07:28 | ECG_ITS ---
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 Measurements Intervals [place] Rate: 106 P: 98 [place]: 178 QRS: 17 QRSD: 150 T: 0 QT: 386 QTc: 513 Interpretive Statements SINUS TACHYCARDIA LEFT BUNDLE BRANCH BLOCK [120+ ms QRS DURATION, 80+ ms Q/S IN V1/V2, 85+ ms R IN I/aVL/V5/V6] Compared to ECG 11/13/2023 10:12:26 Left bundle-branch block now present Sinus rhythm no longer present Myocardial infarct finding no longer present Electronically Signed On 11-15-2023 21:56:06 WAGE AND HOUR INVESTIGATOR by Len Merida M.D. [id number]
[2023-11-15] MEDS: lanolin oint 7 gm 1 APPLIC TOPICAL ×4 (07:42→21:07)
[2023-11-15] MEDS: budesonide 0.5 mg/2 mL Neb INHALATION ×2 (07:52→19:24)
--- NOTE | 2023-11-15 08:37 | PC.PHAR ---
WILL CALL SABINE RAMÍREZ AT 9 AM TO DISCUSS MEDICATION LIST. 11/15/23
--- NOTE | 2023-11-15 11:29 | PM.PN ---
Subjective Subjective: Peter Whitman is a 67-year-old white male was admitted to the ICU on November 11 for sepsis from cellulitis of the right lower extremity and upper GI bleed. He required pressors and this initially. Today patient is alert and conversational reports no abdominal pain or nausea, vomiting or black and tarry stools since yesterday. He reports little pain in the right lower extremity. And is asking for something to drink. Medications: Reviewed: Yes Vitals/I&O/Wt Last Vital Signs Temp 98.9 F 11/15/23 10:00 Pulse 117 H 11/15/23 11:19 Resp 22 H 11/15/23 11:19 BP 92/73 11/15/23 10:00 Pulse Ox 97 11/15/23 11:19 O2 Del Method High Flow Nasal Cannula 11/15/23 11:19 O2 Flow Rate 6 11/15/23 11:19 FiO2 40 11/15/23 04:30 11/14/23 11/15/23 11/15/23 22:59 06:59 14:59 Intake Total 947.608 / 1897.608 174.758 / 2072.366 56.382 / 56.382 Output Total 1300 / 1300 300 / 1600 Balance -352.392 / 597.608 -125.242 / 472.366 56.382 / 56.382 Weight last 48 hrs Weight 95.254 kg Weight 95.254 kg Weight 93.485 kg Weight 93.485 kg Physical Exam Skin: OTHER: Urinary Catheter Management: Love: Cath Placed During This Visit: yes Reason for Continuing Indwelling Catheter: Accurate Measurement of Urinary Output in Critically Ill Patients Urinary Catheter Date of Insertion: 11/11/23 Urinary Catheter Time of Insertion: 06:18 Data 11/15/23 03:24 11/15/23 03:24 Micro: Microbiology 11/14/23 11:35 Gram Stain - Final Leg - #3 11/14/23 11:35 Gram Stain - Final Leg - #2 A&P Assessment and plan (1) Sepsis: Patient presents with sepsis presumably from his right lower extremity cellulitis Septic shock has resolved. Patient continues to have leukocytosis, severe anemia with borderline blood pressures and tachycardia. Maintain mean artery pressure over 65. Maintain saturation over 90%. Strict input output charting, daily weights. (2) Cellulitis: Patient with evidence of right lower extremity cellulitis. Post debridement. Follow-up blood culture, wound culture. Wound culture growing group A strep. Given concerns for deep extensive tissue infection requiring deep debridement for now we will add clindamycin. MRSA swab negative so vancomycin was discontinued. Continue with meropenem. Wound care as per surgical team. Out of bed to chair. Patient has persistent leukocytosis. Mild trending down since debridement but not as much as expected. Will need to continue to monitor the wound to make sure he does not require further debridement. Recheck stool for C. difficile (3) Anemia associated with acute blood loss: This is secondary to upper GI bleed. Appreciate surgical recommendations. Post endoscopy. 11/12 showed gastric ulcers. Hemoglobin down to 7.1 today. Transfuse 2 unit of PRBC keeping hemoglobin over 8. Continue with Protonix twice daily. Add Carafate before meals and at bedtime. Hold off on anticoagulation. Till now patient has received 2 units of blood transfusion and 1 unit of FFP. (4) ALTA (acute kidney injury): Strict improper charting, daily weights. Creatinine stable at 1.5 for now. Monitor BMP in evening. Getting 2 units of PRBC today. Love in place. Patient has also developed hypernatremia which seems to be trending down. Given attenuous blood breathing for now we will hold off on starting D5W as patient is already receiving 2 units of PRBC today. Will try to give 40 mg of IV Lasix between transfusions. Appreciate albumin. (5) LBBB (left bundle branch block): Had nonsustained V. tach earlier today morning. EKG on admission did not show LBBB but today morning EKG shows LBBB. Can be intermittent LBBB in setting of demand ischemia but cannot rule out ACS given new LBBB for now. Recheck troponins, check echocardiogram. Unfortunately given acute anemia secondary to blood loss cannot anticoagulate with heparin drip or start on aspirin or Plavix. Blood pressure is better so will restart on metoprolol 25 mg twice daily. Monitor blood pressures. (6) NSVT (nonsustained ventricular tachycardia): (7) Hypothermia: Resolved (8) Hypotension: Resolved. Now off norepinephrine and albumin (9) Hyperkalemia: Resolved (10) Acute encephalopathy: Seems to be improving. Patient is out of bed to chair. Continue to monitor. Precedex if needed. Otherwise can add Xanax 0.25 mg nightly as needed. (11) Status post excisional debridement: (12) Necrotizing fasciitis due to Streptococcus pyogenes: Plan Plan for the day: Adding clindamycin as above. Checking troponin cycle, echocardiogram. And metoprolol 25 mg twice daily. Monitor blood pressures with mean over 65 as target. Oxygen supplementation keeping saturation over 90%. Switch nebulization to ipratropium, Xopenex every 4 hours, Pulmicort twice daily. Add chest vest for aggressive pulmonary toilet. Continue with incentive spirometry. Check CT chest for further evaluation of shortness of breath. Check procalcitonin, sputum culture, C. difficile. 2 units of blood transfusion along with 40 mg of IV Lasix in between transfusion. Recheck CBC and CMP in evening between 2 units. Patient is at high risk of lower limb amputation. Critically ill. Analgesia: Tramadol 50 mg every 6 hours Glycemic control: Not needed. Recheck A1c in AM. Nutrition: Clear liquid diet for now. CODE STATUS:Discussed in detail with the patient. Son will be the DPOA. Patient would want to remain full code for now. But does not want to remain on life support for long. PUD prophylaxis: Full dose Protonix twice daily DVT prophylaxis: SCDs. Hold off on medical prophylaxis given GI bleed Goals of care discussion: Discussed in detail with son Mr. Whitman over the phone. We discussed that unfortunately Mr. Herrmann remains critically ill getting complicated by nonsustained V. tach earlier today morning with concerns for possible acute coronary syndrome versus demand ischemia. We discussed even if he has any ACS unfortunately we cannot anticoagulate or start him on treatment given blood loss anemia secondary to GI bleed on admission. Son verbalizes understanding. Continue with care at ICU level This documentation was created by [employer] labor mediator software. Every effort was made to ensure accuracy of labor mediator. Any obvious errors or omissions should be clarified with the author of the document. Attestations Medical Necessity Statement*: Requires further hospitalization for management of severe sepsis in setting of right lower limb cellulitis with concerns for necrotizing fasciitis, post debridement, blood loss anemia in setting of GI bleed, nonsustained V. tach in setting of new LBBB with concerns for demand ischemia versus ACS Critical Care Time: The high probability of a clinically significant, sudden or life threatening deterioration of the patient's [cardiac, pulmonary, renal, hematological, ID] system(s) required my full and direct attention, intervention and personal management. The critical care time is as shown. This time is in addition to time spent performing any reported procedures but includes the following: [x] Data and vital sign review and interpretation [x] Patient assessment, examination and intervention [x] Documentation [x] Medication orders and management Critical Care Time (min): 80 Coding Level of Care Code Critical Care >/= 30 minutes Critical care time (in minutes): 80 The high probability of a clinically significant, sudden or life threatening deterioration, as referenced in this documentation, required my full and direct attention, intervention and personal management. The critical care time shown is in addition to time spent performing any reported separately billable procedures and includes the following: [x] Data and vital sign review and interpretation [x] Patient assessment, examination and intervention [x] Medication orders and management [x] Patient/Family updates as able [x] Care Coordination and Documentation. Other Coding Information This patient has a high probability of clinically significant, sudden or life threatening deterioration of the patient's (neurological/pulmonary/cardiac/renal/ID/endocrine) systems required my full, direct attention, the highest level of physician preparedness for urgent intervention and personal management. I managed/supervised life or organ supporting interventions that required frequent physician assessment. I devoted my full attention in the ICU to the direct care of this patient for the period of time indicated above. Time I spent with family or surrogate(s) is included only if the patient was incapable of providing necessary information or participating in decision making. This time includes the following services provided: Telemetry review Hemodynamic interpretation, assessment and management Review and interpretation of CXR Review and interpretation of lab values Review and interpretation of microbiologic data and culture results Review of medications and administration Review and interpretation of Nutrition requirements and management Discussion of management with other consultants and services Clinical update to family members Diagnoses Sepsis A41.9 Cellulitis L03.90 Anemia associated with acute blood loss D62 ALTA (acute kidney injury) N17.9 LBBB (left bundle branch block) I44.7 NSVT (nonsustained ventricular tachycardia) I47.29 Hypothermia T68.XXXA Hypotension I95.9 Hyperkalemia E87.5 Acute encephalopathy G93.40 Status post excisional debridement Z98.890 Necrotizing fasciitis due to Streptococcus pyogenes M72.6; B95.0
--- NOTE | 2023-11-15 11:35 | CTR_ITS ---
PROCEDURE INFORMATION: Exam: CT Chest Without Contrast; Diagnostic Exam date and time: 11/15/2023 1:06 PM Age: 67 years old Clinical indication: Shortness of breath; Additional info: SOB, chf TECHNIQUE: Imaging protocol: Diagnostic computed tomography of the chest without contrast. Radiation optimization: All CT scans at this facility use at least one of these dose optimization techniques: automated exposure control; mA and/or kV adjustment per patient size (includes targeted exams where dose is matched to clinical indication); or iterative reconstruction. COMPARISON: CT chest [facility] [id number] 02/06/2021 6:10 PM RADIATION DOSE METRICS: Total DLP (mGy-cm): 614.6 FINDINGS: Lungs: Emphysematous changes. Bibasilar atelectasis/consolidation. Pleural spaces: Trace left greater than right pleural effusions. Heart: No significant coronary calcifications. No pericardial effusion. Lymph nodes: No enlarged lymph nodes. Vasculature: No aortic aneurysm. Bones/joints: No acute findings Soft tissues: Mild peripancreatic inflammatory stranding. Cholelithiasis. CT/CT chest [facility] [id number] IMPRESSION: Trace bilateral pleural effusions and overlying atelectasis/consolidation, underlying infiltrate not excluded. Peripancreatic inflammatory stranding. If there is correlating elevated lipase this could represent acute pancreatitis. COMMENTS: The presence of pulmonary emphysema on CT is an independent risk factor for lung cancer. In the absence of a history or active diagnosis of lung cancer, it is recommended that this patient with emphysema be evaluated for enrollment in a low dose CT lung cancer screening program.
--- NOTE | 2023-11-15 11:42 | ECG_ITS ---
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 Measurements Intervals [place] Rate: 104 P: 43 SD: 145 QRS: 44 QRSD: 91 T: 0 QT: 307 QTc: 405 Interpretive Statements SINUS TACHYCARDIA NONSPECIFIC ST & T-WAVE ABNORMALITY ABNORMAL RHYTHM ECG Compared to ECG 11/15/2023 07:28:23 T-wave abnormality now present Left bundle-branch block no longer present Electronically Signed On 11-15-2023 21:56:25 STRAWHAT BLOCKING OPERATOR by Len Merida M.D. [id number]
[2023-11-15] MEDS: levalbuterol 0.63 mg/3 mL Neb INHALATION ×4 (11:57→23:30)
[2023-11-15] MEDS: ipratropium 0.5 mg/2.5 mL Neb INHALATION ×4 (11:57→23:30)
--- NOTE | 2023-11-15 11:59 | USCV_ITS ---
Peter Herrmann Age: 67 Gender: M : 1955 Exam Date: 11/15/2023 12:29 Ordering Phys: Rai Wheeler MD Technologist: Nicholas Cobos Exam Location: [facility] Indication: new ibbb BP: 92 / 73 HR: 101 Rhythm: Sinus Technical Quality: Adequate MEASUREMENTS (Male / Female) Normal Values 2D ECHO LVOT Diameter 2.0 cm LV Ejection Fraction MOD 2C 69.7 % LV Ejection Fraction 2C AL 69.5 % LA Diameter 3.4 cm LA Width 4.1 cm LA Height 5.0 cm RA Width 3.4 cm RA Height 4.1 cm Aorta at Sinotubular Diameter 2.3 cm IVC Diameter 1.5 cm M-MODE Aortic Annulus Diameter 2.9 cm LA Ao Ratio MM 1.3 MV E Point Septal Separation 1.4 cm DOPPLER AV Peak Velocity 177.7 cm/s LVOT Peak Velocity 106.0 cm/s AV Area Cont Eq vti 2.3 cm squared AV Area Cont Eq pk 2.0 cm squared MV Peak Velocity 100.0 cm/s MV Area PHT 5.0 cm squared Mitral E to A Ratio 0.9 MV E' Velocity 51.0 cm/s Mitral E to MV E' Ratio 6.2 Mitral E to LV E' Lateral Ratio 5.7 Mitral E to LV E' Septal Ratio 6.7 TR Peak Velocity 310.8 cm/s TR Peak Gradient 38.6 mmHg TR Mean Velocity 212.6 cm/s TR Mean Gradient 20.7 mmHg TR Velocity Time Integral 67.9 cm Right Atrial Pressure 3.0 mmHg Pulmonary Artery Systolic Pressu 41.6 mmHg PV Peak Velocity 105.0 cm/s RV Acceleration Time 0.1 s RV Ejection Time 0.2 s RV AcT/ET 0.5 FINDINGS Left Ventricle Normal left ventricular size and systolic function, EF 72 %. No regional wall motion abnormalities. Right Ventricle The right ventricle is normal in size and function. Right Atrium The right atrium is normal in size. Left Atrium The left atrium is normal in size. Mitral Valve No gross abnormalities noted Aortic Valve No gross abnormalities noted Tricuspid Valve Mild tricuspid valve regurgitation. Pulmonic Valve Pulmonic valve not well visualized. Pericardium Normal pericardium without effusion. Aorta Normal ascending aorta dimension. IVC Normal inferior vena cava. CONCLUSIONS Normal left ventricular size and systolic function, EF 72 %. No regional wall motion abnormalities. Mild tricuspid valve regurgitation. There is no pericardial effusion. Dr Len Merida MD FACC (Electronically Signed) Final Date: 15 November 2023 13:54 S
[2023-11-15] MEDS: metoprolol tartrate 1 mg/1 mL SDV 5 mL 5 MG IVP (12:05)
[2023-11-15] MEDS: albumin 25 G/100 ML BAG 60 G IV ×2 (12:06→19:52)
[2023-11-15] MEDS: sucralfate 1 gm Tablet PO ×3 (12:17→21:08)
[2023-11-15 12:28] LABS: Iron 11 ug/dL (59-158); Percent Saturation 6.4 % (20-50); Total Iron Binding Capacity 171 mcg/dl; Unsaturated Iron Binding 160 ug/dL (112-347)
[2023-11-15 12:30] LABS: Troponin(5th) Baseline 37 ng/L (0-15)
[2023-11-15 12:43] LABS: Vitamin B12 1654 pg/mL (232-1245)
--- NOTE | 2023-11-15 13:16 | PC.NURSE ---
Ct of c hest completed Pt tolerated well.
--- NOTE | 2023-11-15 13:42 | ECG_ITS ---
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 Measurements Intervals [place] Rate: 106 P: 60 WV: 153 QRS: 38 QRSD: 98 T: -60 QT: 303 QTc: 404 Interpretive Statements SINUS TACHYCARDIA NONSPECIFIC ST & T-WAVE ABNORMALITY Compared to ECG 11/15/2023 12:04:03 No significant changes Electronically Signed On 11-15-2023 22:00:03 DRY WALL NAILER by Len Merida M.D. [id number]
[2023-11-15] MEDS: iron sucrose 200 MG in sodium chloride 0.9% (100 ml) 100 ML 220 MG IV (14:49)
[2023-11-15] MEDS: clindamycin 900 MG/50 ML PREMIX 100 MG IV ×2 (14:52→22:27)
--- NOTE | 2023-11-15 15:00 | PC.NURSE ---
TAR: Initiating VS entered on TAR. For further VS please see VS flowsheet.
[2023-11-15 15:01] LABS: Troponin 5 2HR 27.38 ng/L (0-15)
[2023-11-15] MEDS: sodium chloride 0.9% (100 ml) 100 ML 50 ML (16:49)
--- NOTE | 2023-11-15 17:11 | P.PN_ITS ---
Subjective 2 Subjective: Patient seen and examined. Dressings taken down. Pain is controlled. Vitals/I&O/Wt Last Vital Signs Temp 98.9 F 11/15/23 15:07 Pulse 101 H 11/15/23 16:00 Resp 22 H 11/15/23 15:59 BP 113/71 11/15/23 15:07 Pulse Ox 95 11/15/23 15:59 O2 Del Method High Flow Nasal Cannula 11/15/23 15:59 O2 Flow Rate 6 11/15/23 15:59 FiO2 40 11/15/23 04:30 11/15/23 11/15/23 11/15/23 06:59 14:59 22:59 Intake Total 174.758 / 2072.366 762.457 / 762.457 260 / 1022.457 Output Total 300 / 1600 Balance -125.242 / 472.366 762.457 / 762.457 260 / 1022.457 Weight last 48 hrs Weight 210 lb Weight 210 lb Weight 206 lb 1.6 oz Weight 206 lb 1.6 oz Physical Exam 2 Narrative: General: No acute distress, awake alert and oriented x 3 Extremities: Right lower extremity bandages taken down. Debridement was performed down to muscle and fascia. Minimal surrounding cellulitis and no purulence/exudate seen Urinary Catheter Management: Love: Cath Placed During This Visit: yes Reason for Continuing Indwelling Catheter: Accurate Measurement of Urinary Output in Critically Ill Patients Urinary Catheter Date of Insertion: 11/11/23 Urinary Catheter Time of Insertion: 06:18 Data 11/15/23 03:24 11/15/23 03:24 Micro: Microbiology 11/14/23 11:35 Anaerobic Culture - Preliminary Leg - #1 11/14/23 11:35 Gram Stain - Final Leg - #2 Wound Culture - Preliminary Strep pyogenes (grp a) 11/14/23 11:35 Gram Stain - Final Leg - #3 Tissue Culture - Preliminary A&P Assessment and plan (1) Status post excisional debridement: (2) Necrotizing fasciitis due to Streptococcus pyogenes: (3) Gastric ulcer: Plan Dressing changes twice daily with wet-to-dry gauze Sucralfate added He likely will benefit from a skin graft once the wound has a bed of healthy granulation tissue Will follow Attestations 2 Medical Necessity Statement*: Per primary Coding Level of Care Code Acute Code for Chg Fwd Diagnoses Status post excisional debridement Z98.890 Necrotizing fasciitis due to Streptococcus pyogenes M72.6; B95.0 Gastric ulcer K25.9
[2023-11-15] MEDS: metoprolol tartrate 25 mg Tablet PO (17:33)
[2023-11-15] MEDS: FUROsemide 10 mg/mL SDV 4mL 40 MG IVP (17:33)
--- NOTE | 2023-11-15 17:42 | ECG_ITS ---
[facility] Test Date: 2023-11-15 Pat Name: Peter Herrmann Department: Room: ICU09 Gender: Male Ekg Technician: : 1955 Requested By: Rai Wheeler Order Number: [id number] Lorri MD: Len Merida M.D. Measurements Intervals [place] Rate: 107 P: 68 [place]: 165 QRS: 44 QRSD: 97 T: 60 QT: 339 QTc: 454 Interpretive Statements SINUS TACHYCARDIA NONSPECIFIC ST & T-WAVE ABNORMALITY ABNORMAL RHYTHM ECG Compared to ECG 11/15/2023 13:55:26 No significant changes Electronically Signed On 11-15-2023 22:01:38 MANAGEMENT INFORMATION SYSTEMS DIRECTOR by Len Merida M.D. [email or web address], [id number]
--- NOTE | 2023-11-15 17:55 | PC.NURSE ---
Shift summary: Pt was very irritable and febrile ( 100.3) this am. Precedex on briefly this am at 0.3mcg/kg/hr. Pt's O2 sats greater than 90% but pt using abdominal muscles and work of breathing noted. Pt up to chair around 0900, mood improved immediately. Dr Salazar examined right leg wound. Dressing changes to be wet to dry BID. Dressing change completed. Small run of VT noted shortly before noon. Troponins and EKGs ordered and done. He did complain of pain in his left side of chest this am, but no more complaints since. Metoprolol 5mg IVP admin. Rhythm has been consistently sinus tach, until about 1720, a few PVCs noted occasionally. He was restarted on Po Metoprolol this evening. He received albumin and iron sucrose today. He has received one unit of PRBCs, followed with 40 mg of Lasix. He has a wet rattle in his throat which he clears with difficulty. Chest physiotherapy and IS use started today. Clindamycin started today. He also had a chest CT and a echocardiogram ordered and completed today.Secong unit of PRBCs to be started after labs drawn this evening. He has had 2 small tarry incontinent stool episodes. Love cath output of 575ml of bright yellow urine this shift.
--- NOTE | 2023-11-15 18:39 | PC.NURSE ---
Pt refused BiPap. Per Dr Archibald restart Precedex, it was restarted.
[2023-11-15] MEDS: saliva stimulant spray 30 mL Btl 1 SPRAY MUCOUS MEM (19:02)
[2023-11-15 19:16] LABS: Basophils # 0.1 10^3/uL (0.0-0.1); Basophils % 0.2 %; Eosinophils # 0.3 10^3/uL (0.0-0.8); Eosinophils % 0.6 %; Hematocrit 28.2 % (37-53); Lymphocytes % 2.6 %; Mean Corpuscular HGB Conc 30.9 g/dL (30-55); Mean Corpuscular Hemoglobin 28.1 pg (27-33); Mean Platelet Volume 9.8 fL (7.4-10.4); Monocytes # 1.4 10^3/uL (0.2-0.9); Monocytes % 3.5 %; Neutrophils # 35.24 10^3/uL (1.8-7.7); Neutrophils % 91.5 %; Nucleated Red Blood Cells # 0.1 /100WBC; Nucleated Red Blood Cells % 0.2 %; Platelet Count 469 10^3/cmm (157-399); Red Cell Distribution Width 17.2 % (12.1-15.1)
[2023-11-15 19:25] LABS: White Blood Count 38.56 10^3/uL (3.29-11.43)
[2023-11-15 19:30] LABS: Alanine Aminotransferase 35 U/L (0-41); Albumin Level 3.7 g/dL (3.5-5.2); Alkaline Phosphatase 96 U/L (40-130); Anion Gap 14.8 (5-19); Aspartate Amino Transferase 22 U/L (0-40); Blood Urea Nitrogen 31 mg/dL (8-23); Calcium 8.3 mg/dL (8.5-10.5); Carbon Dioxide 28 mmol/L (22-29); Chloride 105 mmol/L (98-107); Globulin 2.7 g/dL (1.3-4.6); Glomerular Filtration Rate 43.5 mL/min (90-130); Glucose 90 mg/dL (65-115); Osmolality Calculated 304 mOsm/kg (285-295); Potassium 3.8 mmol/L (3.5-5.1); Sodium 144 mmol/L (136-145); Total Protein 6.4 g/dL (6.6-8.7); Troponin 5 6HR 26.25 ng/L (0-15)
[2023-11-15 19:32] LABS: Troponin 5 6HR Delta -10.75 ng/L (0-12)
--- NOTE | 2023-11-15 20:27 | PC.NURSE ---
Blood At 1841, patient's hemoglobin 8.7. Second unit of blood ordered to be transfused. Dr. Oconnell notified of hemoglobin; order received to not administer second unit.
[2023-11-15] MEDS: dexmedeTOMIDine 0.9 % NaCL 400 MCG/100 ML PREMIX 11.69 MCG IV (21:06)
[2023-11-15] MEDS: trazodone 50 mg Tablet PO (21:08)
[2023-11-15] MEDS: TRAMadol 50 mg Tablet PO (21:09)
[2023-11-16] VITALS (78 sets, daily range): BP systolic 81–144; BP diastolic 48–89; PULSE 66–101; RESP 20–35; TEMP 36.9–37.3; O2SAT 79–99; BMI 33.5
[2023-11-16] MEDS: lanolin oint 7 gm 1 APPLIC TOPICAL ×2 (00:14→02:16)
[2023-11-16] MEDS: meropenem 1,000 MG in sodium chloride 0.9% (plus) 50 ML 100 MG IV ×3 (02:13→17:37)
[2023-11-16] MEDS: albumin 25 G/100 ML BAG 60 G IV ×2 (03:47→19:27)
[2023-11-16] MEDS: ipratropium 0.5 mg/2.5 mL Neb INHALATION ×6 (03:47→23:19)
[2023-11-16] MEDS: levalbuterol 0.63 mg/3 mL Neb INHALATION ×6 (03:47→23:19)
[2023-11-16 04:27] LABS: Basophils # 0.1 10^3/uL (0.0-0.1); Basophils % 0.2 %; Eosinophils # 0.5 10^3/uL (0.0-0.8); Eosinophils % 1.4 %; Lymphocytes # 0.8 10^3/uL (0.8-4.8); Lymphocytes % 2.3 %; Mean Corpuscular HGB Conc 31.2 g/dL (30-55); Mean Corpuscular Hemoglobin 28.1 pg (27-33); Mean Corpuscular Volume 89.9 fl (82-101); Mean Platelet Volume 10.2 fL (7.4-10.4); Monocytes # 1.5 10^3/uL (0.2-0.9); Monocytes % 4.4 %; Neutrophils # 29.96 10^3/uL (1.8-7.7); Neutrophils % 90.4 %; Nucleated Red Blood Cells # 0.1 /100WBC; Nucleated Red Blood Cells % 0.3 %; Platelet Count 435 10^3/cmm (157-399); Red Blood Count 2.78 10^6/uL (3.85-5.65); Red Cell Distribution Width 18.1 % (12.1-15.1)
[2023-11-16 04:47] LABS: Alanine Aminotransferase 26 U/L (0-41); Albumin Level 3.3 g/dL (3.5-5.2); Alkaline Phosphatase 83 U/L (40-130); Anion Gap 12.7 (5-19); Aspartate Amino Transferase 16 U/L (0-40); Blood Urea Nitrogen 29 mg/dL (8-23); Calcium 8.4 mg/dL (8.5-10.5); Carbon Dioxide 28 mmol/L (22-29); Chloride 106 mmol/L (98-107); Globulin 3.1 g/dL (1.3-4.6); Glomerular Filtration Rate 43.5 mL/min (90-130); Glucose 88 mg/dL (65-115); Magnesium 2.1 mg/dL (1.7-2.3); Osmolality Calculated 301 mOsm/kg (285-295); Potassium 3.7 mmol/L (3.5-5.1); Sodium 143 mmol/L (136-145); Total Bilirubin 0.5 mg/dL (0.15-1.2); Total Protein 6.4 g/dL (6.6-8.7)
[2023-11-16 04:57] LABS: White Blood Count 33.13 10^3/uL (3.29-11.43)
[2023-11-16 05:01] LABS: Folate Level 3.9 ng/mL (4.5-32.2)
[2023-11-16] MEDS: metoprolol tartrate 25 mg Tablet PO ×2 (05:16→17:39)
[2023-11-16] MEDS: dexmedeTOMIDine 0.9 % NaCL 400 MCG/100 ML PREMIX 9.35 MCG IV ×2 (05:34→15:09)
--- NOTE | 2023-11-16 06:08 | PC.NURSE ---
Blood Dr. Oconnell notified of AM hgb 7.8 as well as presence of slight crackles heard in bilateral lungs. Order received to not administer blood product waiting.
[2023-11-16] MEDS: sucralfate 1 gm Tablet PO ×4 (06:48→20:34)
[2023-11-16] MEDS: pantoprazole 40 mg SDV IVP ×2 (06:48→17:39)
--- NOTE | 2023-11-16 07:05 | PC.NURSE ---
Bipap Patient refusing to wear bipap throughout most of the night. Education provided on importance of wearing bipap and respiratory benefits. Patient agreed to wear bipap for 1 hour at 2000 as well as for one hour this AM at 0400. Otherwise, patient refused. 6LHFNC worn, oxygen saturations remaining stable. RT aware.
[2023-11-16] MEDS: clindamycin 900 MG/50 ML PREMIX 100 MG IV ×3 (07:43→21:44)
[2023-11-16] MEDS: budesonide 0.5 mg/2 mL Neb INHALATION ×2 (08:08→19:23)
--- NOTE | 2023-11-16 10:32 | P.PN_ITS ---
Subjective 2 Subjective: Patient seen and examined. Tolerating diet. Pain controlled Vitals/I&O/Wt Last Vital Signs Temp 98.5 F 11/16/23 08:00 Pulse 71 11/16/23 10:00 Resp 21 H 11/16/23 10:00 BP 105/57 11/16/23 10:00 Pulse Ox 99 11/16/23 10:00 O2 Del Method Nasal Cannula 11/16/23 08:00 O2 Flow Rate 6 11/16/23 08:00 FiO2 40 11/15/23 20:02 11/15/23 11/16/23 11/16/23 22:59 06:59 14:59 Intake Total 1934.249 / 2696.706 779.000 / 3475.706 150 / 150 Output Total 575 / 575 1200 / 1775 Balance 1359.249 / 2121.706 -421.000 / 1700.706 150 / 150 Weight last 48 hrs Weight 214 lb Weight 210 lb Weight 210 lb Physical Exam 2 Narrative: General: No acute distress, awake alert and oriented x 3 Extremities: Right lower extremity bandages taken down. Debridement was performed down to muscle and fascia. Minimal surrounding erythema and no purulence/exudate seen. Wound bed is dry. Surrounding tissues are nontender Urinary Catheter Management: Love: Cath Placed During This Visit: yes Reason for Continuing Indwelling Catheter: Accurate Measurement of Urinary Output in Critically Ill Patients Urinary Catheter Date of Insertion: 11/11/23 Urinary Catheter Time of Insertion: 06:18 Data 11/16/23 03:55 11/16/23 03:55 Micro: Microbiology 11/14/23 11:35 Anaerobic Culture - Preliminary Leg - #1 11/14/23 11:35 Gram Stain - Final Leg - #2 Wound Culture - Preliminary Strep pyogenes (grp a) 11/14/23 11:35 Gram Stain - Final Leg - #3 Tissue Culture - Preliminary A&P Assessment and plan (1) Status post excisional debridement: (2) Necrotizing fasciitis due to Streptococcus pyogenes: (3) Gastric ulcer: Plan Dressing changes twice daily with wet-to-dry gauze Sucralfate added Advance diet He likely will benefit from a skin graft once the wound has a bed of healthy granulation tissue Will follow Attestations 2 Medical Necessity Statement*: Per primary Coding Level of Care Code Acute Code for Chg Fwd Diagnoses Status post excisional debridement Z98.890 Necrotizing fasciitis due to Streptococcus pyogenes M72.6; B95.0 Gastric ulcer K25.9
[2023-11-16] MEDS: FUROsemide 10 mg/mL SDV 4mL 40 MG IVP ×2 (11:52→20:42)
[2023-11-16] MEDS: albumin 25 G/100 ML BAG 125 G IV (11:53)
--- NOTE | 2023-11-16 11:55 | P.PN_ITS ---
Subjective 2 Subjective: No acute events overnight. Seen sitting comfortably in bed. Agreeable to sit up in chair. Complaining of dry mouth and feeling hot. Urine output of around 1700 cc in last 24 hours. Received monitor blood transfusion yesterday. Less diarrheal bowel movements now as per the nursing staff. Has remained hemodynamically stable. Less VPCs now. No further episodes of nonsustained V. tach. Currently on 6 L of high high flow nasal cannula saturating at 95%. Vitals/I&O/Wt Last Vital Signs Temp 98.5 F 11/16/23 08:00 Pulse 71 11/16/23 10:00 Resp 21 H 11/16/23 10:00 BP 105/57 11/16/23 10:00 Pulse Ox 99 11/16/23 10:00 O2 Del Method Nasal Cannula 11/16/23 08:00 O2 Flow Rate 6 11/16/23 08:00 FiO2 40 11/15/23 20:02 11/15/23 11/16/23 11/16/23 22:59 06:59 14:59 Intake Total 1934.249 / 2696.706 779.000 / 3475.706 440 / 440 Output Total 575 / 575 1200 / 1775 Balance 1359.249 / 2121.706 -421.000 / 1700.706 440 / 440 Weight last 48 hrs Weight 97.069 kg Weight 95.254 kg Weight 95.254 kg Physical Exam 2 Narrative: Lungs diminished breath sounds Abdomen has some tenderness. Hypoactive bowel sounds. Slightly distended. Neuro no obvious focal deficits. Some slurring of speech. Moving all 4 extremities. Able to indicate wants. Skin: OTHER: Urinary Catheter Management: Love: Cath Placed During This Visit: yes Reason for Continuing Indwelling Catheter: Accurate Measurement of Urinary Output in Critically Ill Patients Urinary Catheter Date of Insertion: 11/11/23 Urinary Catheter Time of Insertion: 06:18 Data 11/16/23 03:55 11/16/23 03:55 Micro: Microbiology 11/14/23 11:35 Anaerobic Culture - Preliminary Leg - #1 11/14/23 11:35 Gram Stain - Final Leg - #2 Wound Culture - Preliminary Strep pyogenes (grp a) 11/14/23 11:35 Gram Stain - Final Leg - #3 Tissue Culture - Preliminary A&P Assessment and plan (1) Sepsis: Patient presents with sepsis presumably from his right lower extremity cellulitis Septic shock has resolved. Patient continues to have leukocytosis, severe anemia with borderline blood pressures and tachycardia. Maintain mean artery pressure over 65. Maintain saturation over 90%. Strict input output charting, daily weights. (2) Necrotizing fasciitis due to Streptococcus pyogenes: (3) Cellulitis: Patient with evidence of right lower extremity cellulitis. Post debridement. Follow-up blood culture, wound culture. Wound culture growing group A strep. Given concerns for deep extensive tissue infection requiring deep debridement for now we will add clindamycin. MRSA swab negative so vancomycin was discontinued. Continue with meropenem. Wound care as per surgical team. Out of bed to chair. Patient has persistent leukocytosis. Mild trending down since debridement but not as much as expected. Will need to continue to monitor the wound to make sure he does not require further debridement. Recheck stool for C. difficile (4) Status post excisional debridement: (5) Anemia associated with acute blood loss: This is secondary to upper GI bleed. Appreciate surgical recommendations. Post endoscopy. 11/12 showed gastric ulcers. Hemoglobin down to 7.1 today. Transfuse 2 unit of PRBC keeping hemoglobin over 8. Continue with Protonix twice daily. Add Carafate before meals and at bedtime. Hold off on anticoagulation. Till now patient has received 2 units of blood transfusion and 1 unit of FFP. (6) ALTA (acute kidney injury): Strict improper charting, daily weights. Creatinine stable at 1.5 for now. Monitor BMP in evening. Getting 2 units of PRBC today. Love in place. Patient has also developed hypernatremia which seems to be trending down. Given attenuous blood breathing for now we will hold off on starting D5W as patient is already receiving 2 units of PRBC today. Will try to give 40 mg of IV Lasix between transfusions. Appreciate albumin. (7) Hypoxia: (8) Pulmonary emphysema: (9) COPD (chronic obstructive pulmonary disease): Qualifiers: COPD type: unspecified COPD Qualified Code(s): J44.9 - Chronic obstructive pulmonary disease, unspecified (10) LBBB (left bundle branch block): Had nonsustained V. tach earlier today morning. EKG on admission did not show LBBB but today morning EKG shows LBBB. Can be intermittent LBBB in setting of demand ischemia but cannot rule out ACS given new LBBB for now. Recheck troponins, check echocardiogram. Unfortunately given acute anemia secondary to blood loss cannot anticoagulate with heparin drip or start on aspirin or Plavix. Blood pressure is better so will restart on metoprolol 25 mg twice daily. Monitor blood pressures. (11) NSVT (nonsustained ventricular tachycardia): (12) Hypothermia: Resolved (13) Hypotension: Resolved. Now off norepinephrine and albumin (14) Hyperkalemia: Resolved (15) Acute encephalopathy: Seems to be improving. Patient is out of bed to chair. Continue to monitor. Precedex if needed. Otherwise can add Xanax 0.25 mg nightly as needed. Plan Plan for the day: ACS ruled out with stable echocardiogram and negative troponin cycle. Nonsustained V. tach and LBBB most likely in setting of demand ischemia. Continue with metoprolol 25 mg twice daily. Target mean artery pressure at 65 mmHg, oxygen supplementation at 90%. Continue with IV meropenem and clindamycin. Persistent leukocytosis. C. difficile pending. Appreciate culture results. Most likely in setting of lack of complete source control. Patient might need further debridement. Will await surgical recommendations. IV Lasix 40 mg one-time. Oxygen supplementation keeping saturation over 90%. Out of bed to chair. Aggressive pulmonary toilet with I-S and chest vest. Appreciate CT chest done yesterday. Only received 1 unit of PRBC yesterday. Transfuse 1 more unit of PRBC. Repeat BMP in evening. Monitor CBC and CMP daily for now. Out of bed to chair. Physical therapy evaluation. Patient is at high risk of lower limb amputation. Critically ill. Analgesia: Tramadol 50 mg every 6 hours Glycemic control: Not needed. Recheck A1c in AM. Nutrition: Clear liquid diet for now. CODE STATUS:Discussed in detail with the patient. Son will be the DPOA. Patient would want to remain full code for now. But does not want to remain on life support for long. PUD prophylaxis: Full dose Protonix twice daily DVT prophylaxis: SCDs. Hold off on medical prophylaxis given GI bleed Goals of care discussion: Discussed in detail with son Mr. Whitman over the phone. We discussed that unfortunately Mr. Herrmann remains critically ill getting complicated by nonsustained V. tach earlier today morning with concerns for possible acute coronary syndrome versus demand ischemia. We discussed even if he has any ACS unfortunately we cannot anticoagulate or start him on treatment given blood loss anemia secondary to GI bleed on admission. Son verbalizes understanding. Continue with care at ICU level This documentation was created by [employer] tongue binder software. Every effort was made to ensure accuracy of tongue binder. Any obvious errors or omissions should be clarified with the author of the document. Attestations 2 Medical Necessity Statement*: Requires further hospitalization for management of sepsis and hypoxia in setting of necrotizing fasciitis post debridement, acute blood loss anemia from GI bleed, acute kidney injury in a patient who is at a higher risk of amputation Critical Care Time: The high probability of a clinically significant, sudden or life threatening deterioration of the patient's [cardiac, respiratory, renal, hematological, ID] system(s) required my full and direct attention, intervention and personal management. The critical care time is as shown. This time is in addition to time spent performing any reported procedures but includes the following: [x] Data and vital sign review and interpretation [x] Patient assessment, examination and intervention [x] Documentation [x] Medication orders and management Critical Care Time (min): 70 Coding Level of Care Code Critical Care >/= 30 minutes Critical care time (in minutes): 70 The high probability of a clinically significant, sudden or life threatening deterioration, as referenced in this documentation, required my full and direct attention, intervention and personal management. The critical care time shown is in addition to time spent performing any reported separately billable procedures and includes the following: [x] Data and vital sign review and interpretation [x ] Patient assessment, examination and intervention [x] Medication orders and management [x] Patient/Family updates as able [x] Care Coordination and Documentation. Other Coding Information This patient has a high probability of clinically significant, sudden or life threatening deterioration of the patient's (neurological/pulmonary/cardiac/renal/ID/endocrine) systems required my full, direct attention, the highest level of physician preparedness for urgent intervention and personal management. I managed/supervised life or organ supporting interventions that required frequent physician assessment. I devoted my full attention in the ICU to the direct care of this patient for the period of time indicated above. Time I spent with family or surrogate(s) is included only if the patient was incapable of providing necessary information or participating in decision making. This time includes the following services provided: Telemetry review Hemodynamic interpretation, assessment and management Review and interpretation of CXR Review and interpretation of lab values Review and interpretation of microbiologic data and culture results Review of medications and administration Review and interpretation of Nutrition requirements and management Discussion of management with other consultants and services Clinical update to family members Diagnoses Sepsis A41.9 Necrotizing fasciitis due to Streptococcus pyogenes M72.6; B95.0 Cellulitis L03.90 Status post excisional debridement Z98.890 Anemia associated with acute blood loss D62 ALTA (acute kidney injury) N17.9 Hypoxia R09.02 Pulmonary emphysema J43.9 Chronic obstructive pulmonary disease, unspecified COPD type J44.9 COPD type: unspecified COPD LBBB (left bundle branch block) I44.7 NSVT (nonsustained ventricular tachycardia) I47.29 Hypothermia T68.XXXA Hypotension I95.9 Hyperkalemia E87.5 Acute encephalopathy G93.40
[2023-11-16] MEDS: nystatin 100,000 unit/mL UDC 5 mL 100000 UNIT PO ×4 (12:14→20:34)
[2023-11-16] MEDS: multivitamin therapeutic Tablet 1 TAB PO (12:15)
[2023-11-16] MEDS: iron sucrose 200 MG in sodium chloride 0.9% (100 ml) 100 ML 220 MG IV (15:05)
[2023-11-16 18:38] LABS: Anion Gap 13.7 (5-19); Blood Urea Nitrogen 29 mg/dL (8-23); Calcium 8.4 mg/dL (8.5-10.5); Carbon Dioxide 27 mmol/L (22-29); Chloride 102 mmol/L (98-107); Glomerular Filtration Rate 46.8 mL/min (90-130); Glucose 90 mg/dL (65-115); Osmolality Calculated 293 mOsm/kg (285-295); Potassium 3.7 mmol/L (3.5-5.1); Sodium 139 mmol/L (136-145)
--- NOTE | 2023-11-16 20:30 | PC.NURSE ---
Lasix Upon assessment of patient, patient's lungs coarse with crackles and expiratory wheezing. Additionally, patient's oxygen saturation maintaining 86-87 on 8 LHFNC. Patient agreeable to wear bipap for short time only. Dr. Oconnell contacted and order received for 40 mg lasix IVP once. See MAR for details.
[2023-11-16] MEDS: TRAMadol 50 mg Tablet PO (21:47)
[2023-11-16] MEDS: trazodone 50 mg Tablet 25 MG PO (21:48)
--- NOTE | 2023-11-16 23:38 | PC.NURSE ---
Physician Communication Patient's heart rhythm going in and out of nonsustained vtach. Dr. Oconnell notified; no new orders received. Additionally, 50 mg trazodone PO ordered for bedtime with dose instruction to only give 1/[address] Oconnell contacted for clarification; order received for 25 mg trazodone PO at bedtime. See MAR for details.
[2023-11-17] VITALS (103 sets, daily range): BP systolic 98–148; BP diastolic 55–112; PULSE 82–106; RESP 16–30; TEMP 36.9–37.6; O2SAT 81–98; BMI 33.8
[2023-11-17 01:21] LABS: Glucose Point of Care 140 mg/dL (70-110)
[2023-11-17] MEDS: meropenem 1,000 MG in sodium chloride 0.9% (plus) 50 ML 100 MG IV ×3 (01:39→17:34)
[2023-11-17] MEDS: albumin 25 G/100 ML BAG 60 G IV ×3 (03:17→20:30)
[2023-11-17 03:35] LABS: Basophils # 0.1 10^3/uL (0.0-0.1); Basophils % 0.2 %; Eosinophils # 0.4 10^3/uL (0.0-0.8); Eosinophils % 1.2 %; Lymphocytes # 0.8 10^3/uL (0.8-4.8); Lymphocytes % 2.6 %; Mean Corpuscular HGB Conc 31.1 g/dL (30-55); Mean Platelet Volume 10.3 fL (7.4-10.4); Monocytes # 1.6 10^3/uL (0.2-0.9); Monocytes % 5.2 %; Neutrophils # 28.02 10^3/uL (1.8-7.7); Neutrophils % 89.7 %; Nucleated Red Blood Cells # 0.1 /100WBC; Nucleated Red Blood Cells % 0.2 %; Platelet Count 456 10^3/cmm (157-399); Red Blood Count 3.11 10^6/uL (3.85-5.65); Red Cell Distribution Width 17.4 % (12.1-15.1)
[2023-11-17 03:42] LABS: Slide Review Slide Review Perform
[2023-11-17 03:59] LABS: Magnesium 1.8 mg/dL (1.7-2.3)
[2023-11-17 04:02] LABS: Alanine Aminotransferase 20 U/L (0-41); Albumin Level 3.9 g/dL (3.5-5.2); Alkaline Phosphatase 87 U/L (40-130); Anion Gap 14.4 (5-19); Aspartate Amino Transferase 13 U/L (0-40); Blood Urea Nitrogen 27 mg/dL (8-23); Calcium 8.6 mg/dL (8.5-10.5); Carbon Dioxide 28 mmol/L (22-29); Chloride 102 mmol/L (98-107); Globulin 3.2 g/dL (1.3-4.6); Glomerular Filtration Rate 43.5 mL/min (90-130); Glucose 82 mg/dL (65-115); Osmolality Calculated 296 mOsm/kg (285-295); Potassium 3.4 mmol/L (3.5-5.1); Sodium 141 mmol/L (136-145); Total Bilirubin 0.7 mg/dL (0.15-1.2); Total Protein 7.1 g/dL (6.6-8.7)
[2023-11-17] MEDS: ipratropium 0.5 mg/2.5 mL Neb INHALATION ×6 (04:31→23:33)
[2023-11-17] MEDS: levalbuterol 0.63 mg/3 mL Neb INHALATION ×6 (04:31→23:33)
[2023-11-17] MEDS: pantoprazole 40 mg SDV IVP ×2 (06:07→17:33)
[2023-11-17] MEDS: clindamycin 900 MG/50 ML PREMIX 100 MG IV ×3 (06:07→21:14)
[2023-11-17] MEDS: metoprolol tartrate 25 mg Tablet PO ×2 (06:07→17:33)
[2023-11-17] MEDS: sucralfate 1 gm Tablet PO ×4 (06:07→20:31)
[2023-11-17] MEDS: budesonide 0.5 mg/2 mL Neb INHALATION ×2 (07:32→19:45)
[2023-11-17] MEDS: multivitamin therapeutic Tablet 1 TAB PO (08:56)
[2023-11-17] MEDS: nystatin 100,000 unit/mL UDC 5 mL 100000 UNIT PO ×4 (08:57→20:30)
--- NOTE | 2023-11-17 11:33 | PC.OT ---
OT EVALUATION ATTEMPTED; RESPIRATORY THERAPY REPORTS THEY HAVE JUST PLACED THE PATIENT ON THE BIPAP AND REQUEST HOLD AT THIS TIME
--- NOTE | 2023-11-17 11:58 | PC.SOCIAL ---
IMM Update pg 2 of IMM updated and reviewed w/ patient. Copy provided and copy dated, initialed and placed in chart.
--- NOTE | 2023-11-17 14:47 | PC.NURSE ---
Wound Change, wound changed per Med student Saul Lomas. Wet to dry per his instructions.
[2023-11-17] MEDS: iron sucrose 200 MG in sodium chloride 0.9% (100 ml) 100 ML 220 MG IV (14:57)
--- NOTE | 2023-11-17 17:18 | P.PN_ITS ---
Subjective 2 Subjective: Stable over the last 24 hours, no significant abdominal pain, complaining of some tenderness in the right lower extremity. Vitals/I&O/Wt Last Vital Signs Temp 99.1 F 11/17/23 04:00 Pulse 100 11/17/23 16:30 Resp 26 H 11/17/23 16:30 BP 140/72 11/17/23 16:30 Pulse Ox 92 11/17/23 16:30 O2 Del Method BiPAP 11/17/23 15:04 O2 Flow Rate 7 11/17/23 07:32 FiO2 40 11/17/23 15:07 11/17/23 11/17/23 11/17/23 06:59 14:59 22:59 Intake Total 755.486 / 2885.090 680 / 680 400 / 1080 Output Total 950 / 1700 650 / 650 Balance -194.514 / 1185.090 680 / 680 -250 / 430 Weight last 48 hrs Weight 216 lb Weight 214 lb Physical Exam 2 GI: OTHER: Abdomen is soft, nontender, nondistended. Extremity: OTHER: Right lower extremity shows significant improvement, there is decreased edema over erythema of the extremity, the base of the wound appears clean with minimal amount of slough, there is minimal erythema on the edges but no evidence of purulence or tracking. Urinary Catheter Management: Love: Cath Placed During This Visit: yes Reason for Continuing Indwelling Catheter: Accurate Measurement of Urinary Output in Critically Ill Patients Urinary Catheter Date of Insertion: 11/11/23 Urinary Catheter Time of Insertion: 06:18 Data 11/17/23 03:12 11/17/23 03:12 Micro: Microbiology 11/11/23 07:33 Blood Culture - Final Blood 11/11/23 06:56 Blood Culture - Final Blood 11/14/23 11:35 Anaerobic Culture - Preliminary Leg - #1 11/14/23 11:35 Gram Stain - Final Leg - #3 Tissue Culture - Final Strep pyogenes (grp a) Staphylococcus aureus Enterobacter cloacae 11/14/23 11:35 Gram Stain - Final Leg - #2 Wound Culture - Final Strep pyogenes (grp a) Staphylococcus aureus A&P Assessment and plan (1) Gastric ulcer: (2) Cellulitis: (3) Sepsis: (4) Necrotizing fasciitis due to Streptococcus pyogenes: Plan Good progression from the general surgery standpoint after debridement of right lower extremity. We will continue daily wet-to-dry dressing, at the moment there is no need for any additional debridement. Patient should continue antibiotic therapy and trending of the white count. Once there is some granulation tissue at the base of the wound we can transition to a wound VAC and once the wound is granulated patient will require a skin graft for coverage. This can be arranged as outpatient. All other management per medical team. Attestations 2 Medical Necessity Statement*: Per medical team. Coding Level of Care Code 58500 Diagnoses Gastric ulcer K25.9 Cellulitis L03.90 Sepsis A41.9 Necrotizing fasciitis due to Streptococcus pyogenes M72.6; B95.0
[2023-11-17] MEDS: ondansetron 2 mg/ML SDV 2 mL 4 MG IVP (19:12)
--- NOTE | 2023-11-17 19:45 | PC.NURSE ---
Pupils Patient's left pupil much larger than the right pupil. Patient alert and oriented, no facial droop, equal strength bilaterally. Dr. Oconnell notified, no new orders received.
--- NOTE | 2023-11-17 19:57 | PM.PN ---
Subjective Subjective: He reports he is feeling better. He reports that his leg was looked at by surgery. Reports his breathing is feeling better today as well. He does feel like he has some sputum rattling around which he cannot bring up with cough. His bottom with improved sitting up this morning and he wants to transfer back to bed. Vitals/I&O/Wt Last Vital Signs Temp 99.1 F 11/17/23 04:00 Pulse 97 11/17/23 19:47 Resp 20 H 11/17/23 19:46 BP 129/73 11/17/23 18:00 Pulse Ox 89 L 11/17/23 19:47 O2 Del Method BiPAP 11/17/23 19:46 O2 Flow Rate 7 11/17/23 07:32 FiO2 50 11/17/23 19:47 11/17/23 11/17/23 11/17/23 06:59 14:59 22:59 Intake Total 755.486 / 2885.090 680 / 680 450 / 1130 Output Total 950 / 1700 650 / 650 Balance -194.514 / 1185.090 680 / 680 -200 / 480 Weight last 48 hrs Weight 97.976 kg Weight 97.069 kg Physical Exam Narrative: Sitting up in the chair. Const: COMMON NORMALS: patient oriented x3 and alert GENERAL APPEARANCE: cooperative ORIENTATION/CONSCIOUSNESS: Yes awake HENMT: COMMON NORMALS: oropharynx normal Neck/C-Spine: COMMON NORMALS: no JVD Resp: AUSCULTATION: rhonchi and wheezes Cardio: COMMON NORMALS: no JVD, regular rhythm, S1 normal heart sound present, S2 normal heart sound present and No murmurs present (Cardio) RHYTHM: regular rhythm HEART SOUNDS: S1 normal heart sound present and S2 normal heart sound present GI: COMMON NORMALS: Normal to inspection, nondistended, normoactive bowel sounds present, Soft to palpation and non-tender PALPATION: Yes Soft to palpation Extremity: COMMON NORMALS: no joint enlargement and no pedal edema Neuro: COMMON NORMALS: patient oriented x3 and moves all extremities SENSORIUM/ORIENTATION: Yes alert Skin: COMMON NORMALS: no rashes or lesions noted GENERAL SKIN EXAM: no rashes or lesions noted Urinary Catheter Management: Love: Cath Placed During This Visit: yes Reason for Continuing Indwelling Catheter: Accurate Measurement of Urinary Output in Critically Ill Patients Urinary Catheter Date of Insertion: 11/11/23 Urinary Catheter Time of Insertion: 06:18 Data 11/17/23 03:12 11/17/23 03:12 Micro: Microbiology 11/11/23 07:33 Blood Culture - Final Blood 11/11/23 06:56 Blood Culture - Final Blood 11/14/23 11:35 Anaerobic Culture - Preliminary Leg - #1 11/14/23 11:35 Gram Stain - Final Leg - #3 Tissue Culture - Final Strep pyogenes (grp a) Staphylococcus aureus Enterobacter cloacae 11/14/23 11:35 Gram Stain - Final Leg - #2 Wound Culture - Final Strep pyogenes (grp a) Staphylococcus aureus A&P Assessment and plan (1) Necrotizing fasciitis due to Streptococcus pyogenes: Reviewed vitals, CBC, CMP. Reviewed surgery note. No additional debridement at this time. Continue IV antibiotics. Continue clindamycin for now. At risk of C. difficile with clindamycin. Monitor. Still noted elevated WBC. Noted 1 loose stool today. Monitor for C. difficile/persistent diarrhea. Reviewed C. difficile PCR, study had been sent 11/15, pending. Continue wound reassessments. Discussed with casework specialist. (2) Sepsis: Reviewed vitals, CBC, CMP, wound culture, blood culture. Continue empiric antibiotic coverage. No additional debridement today. Patient presents with sepsis presumably from his right lower extremity cellulitis Septic shock has resolved. Patient continues to have leukocytosis, severe anemia with borderline blood pressures and tachycardia. Maintain mean artery pressure over 65. Maintain saturation over 90%. Strict input output charting, daily weights. (3) Hypoxia: Acute respiratory failure, requiring 7 L of oxygen, BiPAP support. So far improved. Reviewed CT chest, noted trace bilateral pleural effusions, atelectasis/consolidation overlying, infiltrate not excluded. Continue treatment for possible pneumonia with meropenem, clindamycin. Breathing treatments. Pulmonary toilet, chest vest. Add flutter valve as he feels he still is unable to cough up phlegm. Does have rhonchi, wheezing on exam. Component of COPD exacerbation. Continue budesonide. For now hold off systemic steroids given necrotizing leg infection. Continue oxygen support, BiPAP support as needed. (4) Cellulitis: Patient with evidence of right lower extremity cellulitis. Post debridement. Follow-up blood culture, wound culture. Wound culture growing group A strep. Given concerns for deep extensive tissue infection requiring deep debridement for now we will add clindamycin. MRSA swab negative so vancomycin was discontinued. Continue with meropenem. Wound care as per surgical team. Out of bed to chair. Patient has persistent leukocytosis. Mild trending down since debridement but not as much as expected. Will need to continue to monitor the wound to make sure he does not require further debridement. Recheck stool for C. difficile (5) Status post excisional debridement: (6) Anemia associated with acute blood loss: This is secondary to upper GI bleed. Appreciate surgical recommendations. Post endoscopy. 11/12 showed gastric ulcers. Hemoglobin down to 7.1 today. Transfuse 2 unit of PRBC keeping hemoglobin over 8. Continue with Protonix twice daily. Add Carafate before meals and at bedtime. Hold off on anticoagulation. Till now patient has received 2 units of blood transfusion and 1 unit of FFP. (7) ALTA (acute kidney injury): Strict improper charting, daily weights. Creatinine stable at 1.5 for now. Monitor BMP in evening. Getting 2 units of PRBC today. Love in place. Patient has also developed hypernatremia which seems to be trending down. Given attenuous blood breathing for now we will hold off on starting D5W as patient is already receiving 2 units of PRBC today. Will try to give 40 mg of IV Lasix between transfusions. Appreciate albumin. (8) Pulmonary emphysema: (9) COPD (chronic obstructive pulmonary disease): Qualifiers: COPD type: unspecified COPD Qualified Code(s): J44.9 - Chronic obstructive pulmonary disease, unspecified (10) LBBB (left bundle branch block): Had nonsustained V. tach earlier today morning. EKG on admission did not show LBBB but today morning EKG shows LBBB. Can be intermittent LBBB in setting of demand ischemia but cannot rule out ACS given new LBBB for now. Recheck troponins, check echocardiogram. Unfortunately given acute anemia secondary to blood loss cannot anticoagulate with heparin drip or start on aspirin or Plavix. Blood pressure is better so will restart on metoprolol 25 mg twice daily. Monitor blood pressures. (11) NSVT (nonsustained ventricular tachycardia): (12) Hypothermia: Resolved (13) Hypotension: Resolved. Now off norepinephrine and albumin (14) Hyperkalemia: Resolved (15) Acute encephalopathy: Seems to be improving. Patient is out of bed to chair. Continue to monitor. Precedex if needed. Otherwise can add Xanax 0.25 mg nightly as needed. Plan CODE STATUS: Son will be the DPOA. Patient would want to remain full code for now. But does not want to remain on life support for long. PUD prophylaxis: Full dose Protonix twice daily DVT prophylaxis: SCDs. Hold off on medical prophylaxis given GI bleed Continue with care at ICU level This documentation was created by [employer] painting machine operator software. Every effort was made to ensure accuracy of painting machine operator. Any obvious errors or omissions should be clarified with the author of the document. Attestations Medical Necessity Statement*: Continue admission for assessment management of necrotizing right leg infection, respiratory failure. Diagnoses Necrotizing fasciitis due to Streptococcus pyogenes M72.6; B95.0 Sepsis A41.9 Hypoxia R09.02 Cellulitis L03.90 Status post excisional debridement Z98.890 Anemia associated with acute blood loss D62 ALTA (acute kidney injury) N17.9 Pulmonary emphysema J43.9 Chronic obstructive pulmonary disease, unspecified COPD type J44.9 COPD type: unspecified COPD LBBB (left bundle branch block) I44.7 NSVT (nonsustained ventricular tachycardia) I47.29 Hypothermia T68.XXXA Hypotension I95.9 Hyperkalemia E87.5 Acute encephalopathy G93.40
[2023-11-17] MEDS: trazodone 50 mg Tablet 25 MG PO (20:30)
[2023-11-17] MEDS: lanolin oint 7 gm 1 APPLIC TOPICAL ×2 (20:31)
--- NOTE | 2023-11-17 20:50 | PC.NURSE ---
Lasix Patient short of breath, using abdominal muscles to breathe with an oxygen saturation maintaining 86-87% on 10 L HFNC. Lungs coarse and diminished when auscultated. Bipap placed on patient at 40% FIO2 with only slight improvement of oxygen saturation to 88%. RT notified, FIO2 titrated to 50%. Dr. Oconnell contacted; order received for 40 mg lasix IVP once one. See MAR for details.
[2023-11-17] MEDS: FUROsemide 10 mg/mL SDV 4mL 40 MG IVP (21:14)
[2023-11-18] VITALS (94 sets, daily range): BP systolic 85–150; BP diastolic 51–93; PULSE 55–121; RESP 16–36; TEMP 36.8–38.6; O2SAT 69–95; BMI 33.8
--- NOTE | 2023-11-18 00:20 | PC.NURSE ---
Ativan/precedex Patient continuously removing bipap stating it hurts his face. While removed on 15 LHFNC, patient's oxygen saturation dropping to 69% and maintaining. Pain medication offered, declined by patient. Education provided to patient on oxygen level and necessity of bipap to maintain oxygen levels. Patient still stated well it hurts my face and I don't need it. Education provided further on patient's oxygen necessity and code status. Inquired to patient about his code status, patient refused to answer still stating I don't care, it doesn't feel good on my face. Chapstick applied, throat spray utilized, patient agreeable to wear bipap. Approximately, 10 minutes later, patient ripping and pulling at bipap tubing as well as cardiac monitoring. Dr. Oconnell contacted; orders received for 0.5 mg ativan IVP once one as well as to restart precedex. See MAR for details.
[2023-11-18] MEDS: LORazepam 2 mg/mL INJ 10 mL MDV 0.5 MG IVP ×3 (00:21→20:48)
[2023-11-18] MEDS: dexmedeTOMIDine 0.9 % NaCL 400 MCG/100 ML PREMIX IV (00:22)
[2023-11-18] MEDS: meropenem 1,000 MG in sodium chloride 0.9% (plus) 50 ML 100 MG IV ×3 (02:49→17:31)
[2023-11-18] MEDS: ipratropium 0.5 mg/2.5 mL Neb INHALATION ×5 (03:25→23:33)
[2023-11-18] MEDS: levalbuterol 0.63 mg/3 mL Neb INHALATION ×5 (03:25→23:33)
--- NOTE | 2023-11-18 03:30 | PC.NURSE ---
Ativan/Chest Xray Patient unable to remain off of bipap without oxygen saturation decreasing into the 60s despite 15 LHFNC. Patient requesting pain medication prior to wound dressing change. Dr. Oconnell contacted; orders received for patient to remain NPO, obtain a chest xray, as well as administer 0.5 mg ativan for pain and stress management during the wound dressing change. See MAR for details.
--- NOTE | 2023-11-18 03:32 | XRR_ITS ---
PROCEDURE INFORMATION: Exam: XR Chest Exam date and time: 11/18/2023 3:45 AM Age: 67 years old Clinical indication: Dyspnea; Additional info: SOB TECHNIQUE: Imaging protocol: Radiologic exam of the chest. Views: 1 view. COMPARISON: CT chest con [id number] 11/15/2023 1:06 PM FINDINGS: Tubes, catheters and devices: Right IJ central venous catheter tip in place. Lungs: Bilateral lower lobe infiltrates Pleural spaces: Unremarkable. No pleural effusion. No pneumothorax. Heart/Mediastinum: Unremarkable. No cardiomegaly. Bones/joints: Unremarkable. XR/XR chest 1V portable [id number] IMPRESSION: Bilateral lower lobe infiltrates. Right IJ central venous catheter tip in the superior vena cava.
[2023-11-18] MEDS: albumin 25 G/100 ML BAG 60 G IV ×2 (03:55→19:18)
[2023-11-18 04:42] LABS: Basophils # 0.1 10^3/uL (0.0-0.1); Basophils % 0.2 %; Eosinophils # 0.2 10^3/uL (0.0-0.8); Eosinophils % 0.7 %; Hematocrit 27.8 % (37-53); Lymphocytes # 0.7 10^3/uL (0.8-4.8); Lymphocytes % 2.2 %; Mean Corpuscular HGB Conc 30.6 g/dL (30-55); Mean Corpuscular Hemoglobin 28.1 pg (27-33); Mean Corpuscular Volume 92.1 fl (82-101); Mean Platelet Volume 10.5 fL (7.4-10.4); Monocytes % 6.2 %; Neutrophils # 28.63 10^3/uL (1.8-7.7); Neutrophils % 89.3 %; Nucleated Red Blood Cells % 0.1 %; Platelet Count 487 10^3/cmm (157-399); Red Blood Count 3.02 10^6/uL (3.85-5.65); Red Cell Distribution Width 17.5 % (12.1-15.1)
[2023-11-18 05:01] LABS: Magnesium 1.9 mg/dL (1.7-2.3)
[2023-11-18 05:03] LABS: Alkaline Phosphatase 190 U/L (40-130); Anion Gap 12.7 (5-19); Aspartate Amino Transferase 18 U/L (0-40); Blood Urea Nitrogen 24 mg/dL (8-23); Calcium 8.5 mg/dL (8.5-10.5); Carbon Dioxide 30 mmol/L (22-29); Chloride 103 mmol/L (98-107); Globulin 3.4 g/dL (1.3-4.6); Glomerular Filtration Rate 50.7 mL/min (90-130); Glucose 118 mg/dL (65-115); Osmolality Calculated 299 mOsm/kg (285-295); Potassium 3.7 mmol/L (3.5-5.1); Sodium 142 mmol/L (136-145); Total Bilirubin 0.5 mg/dL (0.15-1.2); Total Protein 7.4 g/dL (6.6-8.7)
[2023-11-18 05:17] LABS: Alanine Aminotransferase < 5 U/L (0-41)
[2023-11-18] MEDS: pantoprazole 40 mg SDV IVP ×2 (06:05→17:33)
[2023-11-18] MEDS: clindamycin 900 MG/50 ML PREMIX 100 MG IV ×3 (06:06→23:55)
[2023-11-18] MEDS: budesonide 0.5 mg/2 mL Neb INHALATION ×2 (07:38→20:08)
[2023-11-18] MEDS: dexmedeTOMIDine 0.9 % NaCL 400 MCG/100 ML PREMIX 14.02 MCG IV (08:20)
--- NOTE | 2023-11-18 11:40 | PC.NURSE ---
Speech seen patient per recommendation. pt kept NPO clarified order with Dr. Young.
--- NOTE | 2023-11-18 13:18 | P.PN_ITS ---
Subjective 2 Subjective: Patient stable this morning, spirits, no significant complaint, denies pain in the right lower extremity. Vitals/I&O/Wt Last Vital Signs Temp 98.9 F 11/18/23 12:15 Pulse 87 11/18/23 12:15 Resp 24 H 11/18/23 12:15 BP 127/80 11/18/23 12:15 Pulse Ox 93 11/18/23 12:15 O2 Del Method High Flow Nasal Cannula 11/18/23 11:58 O2 Flow Rate 12 11/18/23 11:58 FiO2 50 11/18/23 07:39 11/17/23 11/18/23 11/18/23 22:59 06:59 14:59 Intake Total 600 / 1280 259.527 / 1539.527 86.452 / 86.452 Output Total 650 / 650 925 / 1575 Balance -50 / 630 -665.473 / -35.473 86.452 / 86.452 Weight last 48 hrs Weight 216 lb Weight 216 lb Physical Exam 2 GI: OTHER: Abdomen is soft, mildly distended, nontender to palpation. Extremity: OTHER: Right lower extremity dressing was taken down, no evidence of further purulence, wound edges appear viable, erythema is improving and there is only minimal tenderness during dressing change. The fascia underlying muscle appeared viable I do not see any purulent drainage either from the ankle or from the upper leg. Wet-to-dry dressing was reapplied. Urinary Catheter Management: Love: Cath Placed During This Visit: yes Reason for Continuing Indwelling Catheter: Accurate Measurement of Urinary Output in Critically Ill Patients Urinary Catheter Date of Insertion: 11/11/23 Urinary Catheter Time of Insertion: 06:18 Data 11/18/23 04:21 11/18/23 04:21 Micro: Microbiology 11/11/23 07:33 Blood Culture - Final Blood 11/11/23 06:56 Blood Culture - Final Blood 11/14/23 11:35 Anaerobic Culture - Preliminary Leg - #1 11/14/23 11:35 Gram Stain - Final Leg - #3 Tissue Culture - Final Strep pyogenes (grp a) Staphylococcus aureus Enterobacter cloacae 11/14/23 11:35 Gram Stain - Final Leg - #2 Wound Culture - Final Strep pyogenes (grp a) Staphylococcus aureus A&P Assessment and plan (1) Diverticulitis: (2) Gastric ulcer: (3) Sepsis: (4) Cellulitis: Plan Patient has had an adequate progress after wide debridement of the right lower extremity wound. At this moment there is no evidence of ongoing necrotizing infection in the right lower extremity, there is no purulence, there is no evidence of devitalized tissue and I cannot feel any fluctuance in the leg, in addition edema and erythema are improving. Despite daily improvement on the right lower extremity wound the white count continues to be elevated at around 30K, other sources of this elevation in the white count should also be investigated as lower extremity infection appears to be under control from the surgery point of view. Will continue broad-spectrum antibiotics and we appreciate management per medical ICU team. The plan is to continue wet-to-dry dressing to the right lower extremity, once healing is underway we can switch to a wound VAC. Attestations 2 Medical Necessity Statement*: Per medical team Coding Level of Care Code Acute Code for [facility] Diagnoses Diverticulitis K57.92 Gastric ulcer K25.9 Sepsis A41.9 Cellulitis L03.90
[2023-11-18] MEDS: iron sucrose 200 MG in sodium chloride 0.9% (100 ml) 100 ML 220 MG IV (14:16)
--- NOTE | 2023-11-18 14:46 | US_ITS ---
WS: [id number] RIGHT UPPER QUADRANT ULTRASOUND HISTORY: Elevated white blood cell count. COMPARISON: 08/27/2023. Liver: 20.4 cm in length. Enlarged liver is poorly visualized in its entirety due to body habitus. No mass identified. Hepatic steatosis. Portal Vein: Normal hepatopetal flow with monophasic waveform. Gallbladder: Cholelithiasis. Gallbladder is slightly contracted and the wall is mildly thickened nate uring up to 4 mm. CBD: 0.5 cm Pancreas: Not visualized. Right kidney: 8.5 cm in length. Low normal size kidney with mild cortical thinning. No obstruction. Aorta and IVC: Not well visualized. No ascites. There is a very small RIGHT pleural effusion. IMPRESSION: 1. Cholelithiasis. Gallbladder is very slightly contracted with mild wall thickening. No Irby's si gn. 2. No bile duct dilatation. 3. Moderately enlarged liver with hepatic steatosis.
[2023-11-18] MEDS: metoprolol tartrate 25 mg Tablet PO (17:29)
--- NOTE | 2023-11-18 18:27 | PC.NURSE ---
Patient very non-compliant with bipap and NPO status. Per ST recommendations and providers orders patient still NPO. Patient even attempting to drink sterile water for dressing changes in room. Items removed and discarded. Oral swabs given to moisten mouth
[2023-11-18] MEDS: saliva stimulant spray 30 mL Btl 1 SPRAY MUCOUS MEM (19:21)
--- NOTE | 2023-11-18 20:14 | SUR.OPER ---
At the beginning of this nurse's shift the patient's SPO2 was saturating at 86% while being on 15L high flow nasal cannula. Patient refused to wear Bipap and eduaction was provided on why it is important to wear the Bipap. Patient still refused. Dr. Brantley was notified.
--- NOTE | 2023-11-18 20:35 | P.PN_ITS ---
Subjective 2 Subjective: He is doing about similarly. He wants to have Sprite. Discussed with him concerns regarding worsening oxygenation, requirement for 13 L of oxygen, respiratory failure, risk of worsening. Concerns for risk of aspiration. Vitals/I&O/Wt Last Vital Signs Temp 99.9 F H 11/18/23 16:00 Pulse 114 H 11/18/23 20:10 Resp 17 11/18/23 20:10 BP 138/67 11/18/23 18:15 Pulse Ox 89 L 11/18/23 20:10 O2 Del Method High Flow Nasal Cannula 11/18/23 20:10 O2 Flow Rate 13 11/18/23 20:10 FiO2 50 11/18/23 07:39 11/18/23 11/18/23 11/18/23 06:59 14:59 22:59 Intake Total 259.527 / 1539.527 246.452 / 246.452 53.816 / 300.268 Output Total 925 / 1575 450 / 450 Balance -665.473 / -35.473 246.452 / 246.452 -396.184 / -149.732 Weight last 48 hrs Weight 97.976 kg Weight 97.976 kg Physical Exam 2 Narrative: Sitting up in the chair. Const: COMMON NORMALS: patient oriented x3 and alert GENERAL APPEARANCE: c ooperative ORIENTATION/CONSCIOUSNESS: Yes awake HENMT: COMMON NORMALS: oropharynx normal Neck/C-Spine: COMMON NORMALS: no JVD Resp: AUSCULTATION: rhonchi Cardio: COMMON NORMALS: no JVD, regular rhythm, S1 normal heart sound present, S2 normal heart sound present and No murmurs present (Cardio) RHYTHM: regular rhythm HEART SOUNDS: S1 normal heart sound present and S2 normal heart sound present GI: COMMON NORMALS: Normal to inspection, nondistended, normoactive bowel sounds present, Soft to palpation and non-tender PALPATION: Yes Soft to palpation Extremity: COMMON NORMALS: no joint enlargement and no pedal edema Neuro: COMMON NORMALS: patient oriented x3 and moves all extremities S ENSORIUM/ORIENTATION: Yes alert Skin: OTHER: Dressing of right lower extremity without strikethrough or bleeding. Urinary Catheter Management: Love: Cath Placed During This Visit: yes Reason for Continuing Indwelling Catheter: Accurate Measurement of Urinary Output in Critically Ill Patients Urinary Catheter Date of Insertion: 11/11/23 Urinary Catheter Time of Insertion: 06:18 Data 11/18/23 04:21 11/18/23 04:21 Micro: Microbiology 11/14/23 11:35 Anaerobic Culture - Preliminary Leg - #1 11/11/23 07:33 Blood Culture - Final Blood 11/11/23 06:56 Blood Culture - Final Blood A&P Assessment and plan (1) Hypoxia: Worsening respiratory failure. Bilateral pronounced rhonchi. He does cough and with some effort does bring up some phlegm, but does have difficulty. Requesting flutter valve for him to help assist with pulmonary toilet. For now made n.p.o. due to worsening respiratory failure until able to clear his airway somewhat better. Stop albumin infusions. Check COVID PCR panel. Continue oxygen support, wean down as tolerating. BiPAP as tolerating. Continue meropenem, clindamycin. Continue chest vest, pulmonary toilet. Reviewed vitals, CBC, CMP. Blood culture. Reviewed CT chest. Chest x-ray. Additional coverage with Levaquin for possible atypical organisms. Continue oxygen support, BiPAP support as needed. Reviewed hemoglobin. Resume VTE prophylaxis. (2) Necrotizing fasciitis due to Streptococcus pyogenes: Reviewed surgery note. No additional debridement at this time. Continue IV antibiotics. Continue clindamycin for now. At risk of C. difficile with clindamycin. Monitor. Still noted elevated WBC. Noted 1 loose stool today. Monitor for C. difficile/persistent diarrhea. Reviewed C. difficile PCR, study had been sent 11/15, pending. C. difficile requested. Pending. Continue wound reassessments. Discussed with case coordinator. (3) Sepsis: Reviewed wound and blood cultures. Continue antibiotic coverage. Broaden pneumonia coverage with Levaquin. Continue empiric antibiotic coverage. No additional debridement today. Patient presents with sepsis presumably from his right lower extremity cellulitis Septic shock has resolved. Patient continues to have leukocytosis, severe anemia with borderline blood pressures and tachycardia. Maintain mean artery pressure over 65. Maintain saturation over 90%. Strict input output charting, daily weights. (4) Cellulitis: Patient with evidence of right lower extremity cellulitis. Post debridement. Follow-up blood culture, wound culture. Wound culture growing group A strep. Given concerns for deep extensive tissue infection requiring deep debridement for now we will add clindamycin. MRSA swab negative so vancomycin was discontinued. Continue with meropenem. Wound care as per surgical team. Out of bed to chair. Patient has persistent leukocytosis. Mild trending down since debridement but not as much as expected. Will need to continue to monitor the wound to make sure he does not require further debridement. Recheck stool for C. difficile (5) Status post excisional debridement: (6) Anemia associated with acute blood loss: This is secondary to upper GI bleed. Appreciate surgical recommendations. Post endoscopy. 11/12 showed gastric ulcers. Hemoglobin down to 7.1 today. Transfuse 2 unit of PRBC keeping hemoglobin over 8. Continue with Protonix twice daily. Add Carafate before meals and at bedtime. Hold off on anticoagulation. Till now patient has received 2 units of blood transfusion and 1 unit of FFP. (7) ALTA (acute kidney injury): Reviewed renal function. Slight improvement. Stop albumin. Strict improper charting, daily weights. Monitor BMP in evening. Love in place. Hypernatremia improved. (8) Pulmonary emphysema: (9) COPD (chronic obstructive pulmonary disease): Qualifiers: COPD type: unspecified COPD Qualified Code(s): J44.9 - Chronic obstructive pulmonary disease, unspecified (10) LBBB (left bundle branch block): Had nonsustained V. tach episode. EKG on admission did not show LBBB but today morning EKG shows LBBB. Can be intermittent LBBB in setting of demand ischemia but cannot rule out ACS given new LBBB for now. Recheck troponins, check echocardiogram. Metoprolol. (11) NSVT (nonsustained ventricular tachycardia): (12) Hypothermia: Resolved (13) Hypotension: Resolved. Now off norepinephrine and albumin (14) Hyperkalemia: Resolved (15) Acute encephalopathy: Seems to be improving. Patient is out of bed to chair. Continue to monitor. Precedex if needed. Otherwise can add Xanax 0.25 mg nightly as needed. (16) Alkaline phosphatase elevation: New elevation of alk phos up to 190. Known cholelithiasis. Requested gallbladde. ultrasound. Plan CODE STATUS: Son will be the DPOA. Patient would want to remain full code for now. But does not want to remain on life support for long. PUD prophylaxis: Full dose Protonix twice daily DVT prophylaxis: SCDs. Hold off on medical prophylaxis given GI bleed Continue with care at ICU level This documentation was created by [email or web address] closing specialist software. Every effort was made to ensure accuracy of closing specialist. Any obvious errors or omissions should be clarified with the author of the document. Attestations 2 Medical Necessity Statement*: Continue admission for assessment management of necrotizing right leg infection, respiratory failure. Coding Level of Care Code Critical Care >/= 30 minutes Critical care time (in minutes): 40 The high probability of a clinically significant, sudden or life threatening deterioration, as referenced in this documentation, required my full and direct attention, intervention and personal management. The critical care time shown is in addition to time spent performing any reported separately billable procedures and includes the following: [x] Data and vital sign review and interpretation [x ] Patient assessment, examination and intervention [x] Medication orders and management [x] Patient/Family updates as able [x] Care Coordination and Documentation. Diagnoses Hypoxia R09.02 Necrotizing fasciitis due to Streptococcus pyogenes M72.6; B95.0 Sepsis A41.9 Cellulitis L03.90 Status post excisional debridement Z98.890 Anemia associated with acute blood loss D62 ALTA (acute kidney injury) N17.9 Pulmonary emphysema J43.9 Chronic obstructive pulmonary disease, unspecified COPD type J44.9 COPD type: unspecified COPD LBBB (left bundle branch block) I44.7 NSVT (nonsustained ventricular tachycardia) I47.29 Hypothermia T68.XXXA Hypotension I95.9 Hyperkalemia E87.5 Acute encephalopathy G93.40 Alkaline phosphatase elevation R74.8
[2023-11-18] MEDS: trazodone 50 mg Tablet 25 MG PO (20:46)
[2023-11-18] MEDS: sucralfate 1 gm Tablet PO (20:46)
[2023-11-18] MEDS: nystatin 100,000 unit/mL UDC 5 mL 100000 UNIT PO (20:47)
[2023-11-18] MEDS: lidocaine 1% 5 ML in potassium chloride premix 100 ML 26.25 ML IV (20:47)
[2023-11-18] MEDS: levofloxacin-dextrose 5 % 750 MG/150 ML PREMIX 100 MG IV (21:05)
[2023-11-18] MEDS: heparin 5,000 unit/mL INJ 1 mL 5000 UNIT SUBCUT (21:06)
[2023-11-18 23:31] LABS: Adenovirus Not Detected (NOT DETECT); Chlamydia Pneumoniae Not Detected (NOT DETECT); Coronavirus 229E,HKU1,NL63,OC4 Not Detected (NOT DETECT); Human Metapneumovirus Not Detected (NOT DETECT); Human Rhinovirus/Enterovirus Not Detected (NOT DETECT); Influenza A Not Detected (NOT DETECT); Influenza A H1 Not Detected (NOT DETECT); Influenza A H1-2009 Not Detected (NOT DETECT); Influenza A H3 Not Detected (NOT DETECT); Influenza B Not Detected (NOT DETECT); Mycoplasma Pneumoniae Not Detected (NOT DETECT); Parainfluenza Virus Type 1 Not Detected (NOT DETECT); Parainfluenza Virus Type 2 Not Detected (NOT DETECT); Parainfluenza Virus Type 3 Not Detected (NOT DETECT); Parainfluenza Virus Type 4 Not Detected (NOT DETECT); Respiratory Syncytial Virus A Not Detected (NOT DETECT); Respiratory Syncytial Virus B Not Detected (NOT DETECT); SARS-COV-2 Not Detected (NOT DETECT)
[2023-11-18] MEDS: FUROsemide 10 mg/mL SDV 4mL 40 MG IVP (23:55)
[2023-11-19] VITALS (57 sets, daily range): BP systolic 89–163; BP diastolic 55–111; PULSE 66–119; RESP 17–33; TEMP 36.8–37.9; O2SAT 85–97; BMI 34.3
[2023-11-19] MEDS: meropenem 1,000 MG in sodium chloride 0.9% (plus) 50 ML 100 MG IV ×3 (01:16→18:09)
[2023-11-19] MEDS: dexmedeTOMIDine 0.9 % NaCL 400 MCG/100 ML PREMIX 14.02 MCG IV (03:48)
[2023-11-19] MEDS: ipratropium 0.5 mg/2.5 mL Neb INHALATION ×5 (04:22→20:48)
[2023-11-19] MEDS: levalbuterol 0.63 mg/3 mL Neb INHALATION ×5 (04:22→20:47)
[2023-11-19 04:39] LABS: Basophils # 0.1 10^3/uL (0.0-0.1); Basophils % 0.4 %; Eosinophils # 0.2 10^3/uL (0.0-0.8); Eosinophils % 0.6 %; Hematocrit 26.6 % (37-53); Lymphocytes # 0.6 10^3/uL (0.8-4.8); Lymphocytes % 2.4 %; Mean Corpuscular HGB Conc 30.8 g/dL (30-55); Mean Corpuscular Hemoglobin 28.7 pg (27-33); Mean Platelet Volume 10.6 fL (7.4-10.4); Monocytes % 7.5 %; Neutrophils # 23.66 10^3/uL (1.8-7.7); Neutrophils % 88.4 %; Nucleated Red Blood Cells % 0 %; Platelet Count 521 10^3/cmm (157-399); Red Blood Count 2.86 10^6/uL (3.85-5.65); Red Cell Distribution Width 17.8 % (12.1-15.1); White Blood Count 26.78 10^3/uL (3.29-11.43)
[2023-11-19 05:04] LABS: Alanine Aminotransferase 12 U/L (0-41); Albumin Level 3.8 g/dL (3.5-5.2); Alkaline Phosphatase 74 U/L (40-130); Anion Gap 16.5 (5-19); Aspartate Amino Transferase 14 U/L (0-40); Blood Urea Nitrogen 30 mg/dL (8-23); Carbon Dioxide 27 mmol/L (22-29); Chloride 105 mmol/L (98-107); Globulin 3.1 g/dL (1.3-4.6); Glomerular Filtration Rate 43.5 mL/min (90-130); Glucose 112 mg/dL (65-115); Osmolality Calculated 307 mOsm/kg (285-295); Potassium 3.5 mmol/L (3.5-5.1); Sodium 145 mmol/L (136-145); Total Bilirubin 0.4 mg/dL (0.15-1.2); Total Protein 6.9 g/dL (6.6-8.7)
[2023-11-19 05:07] LABS: Magnesium 2.1 mg/dL (1.7-2.3); NT Pro B Type Natriuretic Pept 3951 pg/mL (0-125)
[2023-11-19] MEDS: clindamycin 900 MG/50 ML PREMIX 100 MG IV ×3 (05:23→23:26)
[2023-11-19] MEDS: metoprolol tartrate 25 mg Tablet PO ×2 (05:23→18:11)
[2023-11-19] MEDS: pantoprazole 40 mg SDV IVP ×2 (05:31→18:11)
[2023-11-19] MEDS: budesonide 0.5 mg/2 mL Neb INHALATION ×2 (08:02→20:47)
[2023-11-19] MEDS: TRAMadol 50 mg Tablet PO (09:01)
[2023-11-19] MEDS: heparin 5,000 unit/mL INJ 1 mL 5000 UNIT SUBCUT ×2 (09:06→20:54)
[2023-11-19] MEDS: HYDROmorphone 1 mg/mL INJ 1 mL 0.2 MG IVP ×3 (13:10→22:34)
[2023-11-19] MEDS: iron sucrose 200 MG in sodium chloride 0.9% (100 ml) 100 ML 220 MG IV (13:52)
--- NOTE | 2023-11-19 14:13 | PC.SOCIAL ---
IMM Update pg 2 of IMM updated and reviewed w/ patient. Copy provided and copy dated, initialed and placed in chart.
--- NOTE | 2023-11-19 19:06 | PM.PN ---
Subjective Subjective: Coughing up phlegm. States that he is able to bring up at least part of the time. Having some pain in his right leg wound. Vitals/I&O/Wt Last Vital Signs Temp 98.7 F 11/19/23 08:00 Pulse 115 H 11/19/23 18:00 Resp 31 H 11/19/23 18:00 BP 138/79 11/19/23 18:00 Pulse Ox 89 L 11/19/23 18:00 O2 Del Method BiPAP 11/19/23 15:00 O2 Flow Rate 12 11/19/23 11:55 FiO2 40 11/19/23 15:07 11/19/23 11/19/23 11/19/23 06:59 14:59 22:59 Intake Total 526.567 / 840.937 194.864 / 194.864 160 / 354.864 Output Total 300 / 1000 500 / 500 Balance 226.567 / -159.063 194.864 / 194.864 -340 / -145.136 Weight last 48 hrs Weight 99.478 kg Weight 97.976 kg Physical Exam Narrative: Sitting up in the chair. Const: COMMON NORMALS: patient oriented x3 and alert GENERAL APPEARANCE: cooperative ORIENTATION/CONSCIOUSNESS: Yes awake HENMT: COMMON NORMALS: oropharynx normal Neck/C-Spine: COMMON NORMALS: no JVD Resp: COMMON NORMALS: normal respiratory effort and clear to auscultation bilaterally AUSCULTATION: clear to auscultation bilaterally, rhonchi and wheezes Cardio: COMMON NORMALS: no JVD, regular rhythm, S1 normal heart sound present, S2 normal heart sound present and No murmurs present (Cardio) RHYTHM: regular rhythm HEART SOUNDS: S1 normal heart sound present and S2 normal heart sound present GI: COMMON NORMALS: Normal to inspection, nondistended, normoactive bowel sounds present, Soft to palpation and non-tender PALPATION: Yes Soft to palpation Extremity: COMMON NORMALS: no joint enlargement and no pedal edema Neuro: COMMON NORMALS: patient oriented x3 and moves all extremities SENSORIUM/ORIENTATION: Yes alert Skin: COMMON NORMALS: no rashes or lesions noted GENERAL SKIN EXAM: no rashes or lesions noted OTHER: Dressing of right lower extremity without strikethrough or bleeding. Urinary Catheter Management: Love: Cath Placed During This Visit: yes Reason for Continuing Indwelling Catheter: Accurate Measurement of Urinary Output in Critically Ill Patients Urinary Catheter Date of Insertion: 11/11/23 Urinary Catheter Time of Insertion: 06:18 Data 11/19/23 04:21 11/19/23 04:21 Micro: Microbiology 11/14/23 11:35 Anaerobic Culture - Preliminary Leg - #1 11/19/23 03:53 Gram Stain - Final Sputum - Expectorated Sputum A&P Assessment and plan (1) Hypoxia: Discussed with speech therapy, still desaturating during assessment, mild cough. Continue n.p.o. for now. Continue pulmonary toilet. Requested flutter valve. Instructed him on use. Continue chest vest. Continue broad-spectrum IV antibiotic coverage. Added Levaquin yesterday. Reviewed vitals, CBC, WBC count slightly down to 26.78. Repeat CBC. Reviewed CMP. Monitor renal function. Overnight received Lasix, had to have BiPAP support. Precedex. Reviewed ANGELA. Reassess volume status. Discussed with his son at bedside. Discussed with case management coordinator. Reviewed COVID PCR panel. Worsening respiratory failure. Bilateral pronounced rhonchi. He does cough and with some effort does bring up some phlegm, but does have difficulty. Requesting flutter valve for him to help assist with pulmonary toilet. For now made n.p.o. due to worsening respiratory failure until able to clear his airway somewhat better. Stop albumin infusions. Continue oxygen support, wean down as tolerating. BiPAP as tolerating. Continue meropenem, clindamycin. Continue chest vest, pulmonary toilet. Levaquin for possible atypical organisms. Continue oxygen support, BiPAP support as needed. Reviewed hemoglobin. VTE prophylaxis. (2) Necrotizing fasciitis due to Streptococcus pyogenes: Reviewed surgery note. No additional debridement at this time. Having some pain in his right leg, not a candidate for NSAIDs, reports rash from acetaminophen, history of hallucination with opioids, but states this was at least several decades ago, request to try small dose of. With monitoring. Continue IV antibiotics. Continue clindamycin for now. At risk of C. difficile with clindamycin. Monitor. Still noted elevated WBC. Noted 1 loose stool today. Monitor for C. difficile/persistent diarrhea. Reviewed C. difficile PCR, study had been sent 11/15, pending. C. difficile requested. Pending. Continue wound reassessments. Discussed with case management coordinator. (3) Sepsis: Reviewed wound and blood cultures. Continue antibiotic coverage. Broaden pneumonia coverage with Levaquin. Continue empiric antibiotic coverage. No additional debridement today. Patient presents with sepsis presumably from his right lower extremity cellulitis Septic shock has resolved. Patient continues to have leukocytosis, severe anemia with borderline blood pressures and tachycardia. Maintain mean artery pressure over 65. Maintain saturation over 90%. Strict input output charting, daily weights. (4) Cellulitis: Patient with evidence of right lower extremity cellulitis. Post debridement. Follow-up blood culture, wound culture. Wound culture growing group A strep. Given concerns for deep extensive tissue infection requiring deep debridement for now we will add clindamycin. MRSA swab negative so vancomycin was discontinued. Continue with meropenem. Wound care as per surgical team. Out of bed to chair. Patient has persistent leukocytosis. Mild trending down since debridement but not as much as expected. Will need to continue to monitor the wound to make sure he does not require further debridement. Recheck stool for C. difficile (5) Status post excisional debridement: (6) Anemia associated with acute blood loss: This is secondary to upper GI bleed. Appreciate surgical recommendations. Post endoscopy. 11/12 showed gastric ulcers. Hemoglobin down to 7.1 today. Transfuse 2 unit of PRBC keeping hemoglobin over 8. Continue with Protonix twice daily. Add Carafate before meals and at bedtime. Hold off on anticoagulation. Till now patient has received 2 units of blood transfusion and 1 unit of FFP. (7) ALTA (acute kidney injury): Reviewed renal function. Slight improvement. Stop albumin. Strict improper charting, daily weights. Monitor BMP in evening. Love in place. Hypernatremia improved. (8) Pulmonary emphysema: (9) COPD (chronic obstructive pulmonary disease): Qualifiers: COPD type: unspecified COPD Qualified Code(s): J44.9 - Chronic obstructive pulmonary disease, unspecified (10) LBBB (left bundle branch block): Had nonsustained V. tach episode. EKG on admission did not show LBBB but today morning EKG shows LBBB. Can be intermittent LBBB in setting of demand ischemia but cannot rule out ACS given new LBBB for now. Recheck troponins, check echocardiogram. Metoprolol. (11) NSVT (nonsustained ventricular tachycardia): (12) Hypothermia: Resolved (13) Hypotension: Resolved. Now off norepinephrine and albumin (14) Hyperkalemia: Resolved (15) Acute encephalopathy: Seems to be improving. Patient is out of bed to chair. Continue to monitor. Precedex if needed. Otherwise can add Xanax 0.25 mg nightly as needed. (16) Alkaline phosphatase elevation: New elevation of alk phos up to 190. Known cholelithiasis. Requested gallbladde. ultrasound. Plan CODE STATUS: Son will be the DPOA. Patient would want to remain full code for now. But does not want to remain on life support for long. PUD prophylaxis: Full dose Protonix twice daily DVT prophylaxis: SCDs. Hold off on medical prophylaxis given GI bleed Continue with care at ICU level This documentation was created by [employer] medical transcriptionist software. Every effort was made to ensure accuracy of medical transcriptionist. Any obvious errors or omissions should be clarified with the author of the document. Attestations Medical Necessity Statement*: Continue admission for assessment management of necrotizing right leg infection, respiratory failure. Diagnoses Hypoxia R09.02 Necrotizing fasciitis due to Streptococcus pyogenes M72.6; B95.0 Sepsis A41.9 Cellulitis L03.90 Status post excisional debridement Z98.890 Anemia associated with acute blood loss D62 ALTA (acute kidney injury) N17.9 Pulmonary emphysema J43.9 Chronic obstructive pulmonary disease, unspecified COPD type J44.9 COPD type: unspecified COPD LBBB (left bundle branch block) I44.7 NSVT (nonsustained ventricular tachycardia) I47.29 Hypothermia T68.XXXA Hypotension I95.9 Hyperkalemia E87.5 Acute encephalopathy G93.40 Alkaline phosphatase elevation R74.8
[2023-11-19] MEDS: trazodone 50 mg Tablet 25 MG PO (20:55)
[2023-11-19] MEDS: lidocaine 5% Patch 1 PATCH TOPICAL (20:55)
[2023-11-19] MEDS: levofloxacin-dextrose 5 % 750 MG/150 ML PREMIX 100 MG IV (20:56)
[2023-11-19] MEDS: nystatin 100,000 unit/mL UDC 5 mL 100000 UNIT PO (20:57)
[2023-11-19] MEDS: sucralfate 1 gm Tablet PO (21:09)
[2023-11-20] VITALS (55 sets, daily range): BP systolic 110–155; BP diastolic 54–94; PULSE 58–168; RESP 15–34; TEMP 37–37.8; O2SAT 89–97
[2023-11-20] MEDS: ipratropium 0.5 mg/2.5 mL Neb INHALATION ×6 (00:11→21:02)
[2023-11-20] MEDS: levalbuterol 0.63 mg/3 mL Neb INHALATION ×6 (00:11→21:02)
--- NOTE | 2023-11-20 01:32 | ECG_ITS ---
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 Measurements Intervals [place] Rate: 114 P: 0 [place]: 0 QRS: -5 QRSD: 145 T: 60 QT: 381 QTc: 525 Interpretive Statements UNCERTAIN IRREGULAR RHYTHM INTERVENTRICULAR CONDUCTION DELAY Compared to ECG 11/15/2023 17:18:42 Sinus tachycardia no longer present T-wave abnormality no longer present Electronically Signed On 11-22-2023 23:19:14 SHIRRING MACHINE OPERATOR by Juvenal Lau M.D. [id number]
[2023-11-20] MEDS: HYDROmorphone 1 mg/mL INJ 1 mL 0.2 MG IVP ×7 (02:16→23:42)
[2023-11-20] MEDS: meropenem 1,000 MG in sodium chloride 0.9% (plus) 50 ML 12.5 MG IV (02:17)
[2023-11-20 02:43] LABS: Troponin(5th) Baseline 45 ng/L (0-15)
[2023-11-20 03:03] LABS: Anion Gap 16.8 (5-19); Blood Urea Nitrogen 36 mg/dL (8-23); Calcium 9.1 mg/dL (8.5-10.5); Carbon Dioxide 27 mmol/L (22-29); Chloride 106 mmol/L (98-107); Glomerular Filtration Rate 35.6 mL/min (90-130); Glucose 97 mg/dL (65-115); Magnesium 2.1 mg/dL (1.7-2.3); NT Pro B Type Natriuretic Pept 2964 pg/mL (0-125); Osmolality Calculated 310 mOsm/kg (285-295); Potassium 3.8 mmol/L (3.5-5.1); Sodium 146 mmol/L (136-145)
--- NOTE | 2023-11-20 03:43 | ECG_ITS ---
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 Measurements Intervals [place] Rate: 116 P: 58 [place]: 144 QRS: 12 QRSD: 86 T: -79 QT: 212 QTc: 295 Interpretive Statements SINUS TACHYCARDIA NONSPECIFIC ST & T-WAVE ABNORMALITY Compared to ECG 11/20/2023 01:32:30 T-wave abnormality now present Left bundle-branch block no longer present Electronically Signed On 11-23-2023 10:59:29 TERMINAL SUPERINTENDENT by Juvenal Lau M.D. [id number]
[2023-11-20] MEDS: HYDROmorphone 1 mg/mL INJ 1 mL 0.5 MG IVP (04:29)
[2023-11-20 05:00] LABS: Basophils # 0.1 10^3/uL (0.0-0.1); Basophils % 0.4 %; Eosinophils # 0.1 10^3/uL (0.0-0.8); Eosinophils % 0.5 %; Hematocrit 26.6 % (37-53); Lymphocytes # 0.8 10^3/uL (0.8-4.8); Lymphocytes % 3.4 %; Mean Corpuscular HGB Conc 30.5 g/dL (30-55); Mean Corpuscular Hemoglobin 28.1 pg (27-33); Mean Corpuscular Volume 92.4 fl (82-101); Monocytes # 2.1 10^3/uL (0.2-0.9); Monocytes % 9.4 %; Neutrophils # 19.25 10^3/uL (1.8-7.7); Neutrophils % 85.6 %; Nucleated Red Blood Cells % 0 %; Platelet Count 583 10^3/cmm (157-399); Red Blood Count 2.88 10^6/uL (3.85-5.65); Red Cell Distribution Width 17.9 % (12.1-15.1); White Blood Count 22.49 10^3/uL (3.29-11.43)
[2023-11-20 05:21] LABS: Troponin 5 2HR 43.74 ng/L (0-15)
[2023-11-20 05:22] LABS: Alanine Aminotransferase 12 U/L (0-41); Albumin Level 3.7 g/dL (3.5-5.2); Alkaline Phosphatase 81 U/L (40-130); Anion Gap 16.8 (5-19); Aspartate Amino Transferase 18 U/L (0-40); Blood Urea Nitrogen 35 mg/dL (8-23); Calcium 9.1 mg/dL (8.5-10.5); Carbon Dioxide 26 mmol/L (22-29); Chloride 106 mmol/L (98-107); Globulin 2.9 g/dL (1.3-4.6); Glomerular Filtration Rate 33.6 mL/min (90-130); Glucose 87 mg/dL (65-115); Osmolality Calculated 307 mOsm/kg (285-295); Potassium 3.8 mmol/L (3.5-5.1); Sodium 145 mmol/L (136-145); Total Bilirubin 0.3 mg/dL (0.15-1.2); Total Protein 6.6 g/dL (6.6-8.7); Troponin 5 2HR Delta -1.26 ABS# (0-10)
[2023-11-20] MEDS: pantoprazole 40 mg SDV IVP ×2 (06:13→17:43)
[2023-11-20] MEDS: clindamycin 900 MG/50 ML PREMIX 100 MG IV ×3 (06:14→22:12)
[2023-11-20] MEDS: sucralfate 1 gm Tablet PO ×4 (06:14→20:50)
[2023-11-20] MEDS: metoprolol tartrate 25 mg Tablet PO ×2 (06:14→17:37)
[2023-11-20 06:58] LABS: Clostridium Difficile PCR NOT DETECTED (NOT DETECTED)
[2023-11-20] MEDS: budesonide 0.5 mg/2 mL Neb INHALATION ×2 (07:53→21:01)
[2023-11-20 08:09] LABS: Glucose Point of Care 115 mg/dL (70-110)
[2023-11-20] MEDS: heparin 5,000 unit/mL INJ 1 mL 5000 UNIT SUBCUT ×2 (08:42→20:49)
[2023-11-20] MEDS: multivitamin therapeutic Tablet 1 TAB PO (08:42)
[2023-11-20] MEDS: nystatin 100,000 unit/mL UDC 5 mL 100000 UNIT PO ×4 (08:42→20:49)
[2023-11-20] MEDS: saliva stimulant spray 30 mL Btl 1 SPRAY MUCOUS MEM ×3 (08:46→17:46)
[2023-11-20] MEDS: lanolin oint 7 gm 1 APPLIC TOPICAL ×2 (08:46→10:00)
[2023-11-20 08:48] LABS: Troponin 5 6HR 44.19 ng/L (0-15)
[2023-11-20 08:52] LABS: Troponin 5 6HR Delta -0.81 ng/L (0-12)
[2023-11-20] MEDS: lidocaine 5% Patch 1 PATCH TOPICAL ×2 (09:00→20:48)
[2023-11-20] MEDS: meropenem 1,000 MG in sodium chloride 0.9% (plus) 50 ML 100 MG IV ×2 (09:59→20:10)
[2023-11-20 11:31] LABS: Glucose Point of Care 101 mg/dL (70-110)
--- NOTE | 2023-11-20 12:21 | P.PN_ITS ---
Subjective 2 Subjective: Patient has remained stable over the last 24 hours., he has pain at the level of the surgical debridement of the right lower extremity, but other than that does not complain of significant symptoms, patient states that his abdomen feels fine, no significant pain or tenderness. Vitals/I&O/Wt Last Vital Signs Temp 98.6 F 11/20/23 08:00 Pulse 120 H 11/20/23 11:11 Resp 21 H 11/20/23 11:05 BP 141/88 11/20/23 08:00 Pulse Ox 93 11/20/23 11:11 O2 Del Method BiPAP 11/20/23 11:05 O2 Flow Rate 12 11/19/23 20:50 FiO2 40 11/20/23 11:11 11/19/23 11/20/23 11/20/23 22:59 06:59 14:59 Intake Total 160 / 354.864 50 / 404.864 150 / 150 Output Total 950 / 950 250 / 1200 Balance -790 / -595.136 -200 / -795.136 150 / 150 Weight last 48 hrs Weight 217 lb Weight 219 lb 5 oz Physical Exam 2 GI: OTHER: Abdomen is DISTENDED, soft, nontender. Extremity: OTHER: On the right lower extremity at the level of the ankle there is a large surgical incision from previous debridement, the wound was revealed showing evidence of interval improvement with some granulation tissue at the base and healthy edges, there is minimal slough especially at the lower aspect of the wound that is being debrided with wet-to-dry dressing. Urinary Catheter Management: Love: Cath Placed During This Visit: yes Reason for Continuing Indwelling Catheter: Accurate Measurement of Urinary Output in Critically Ill Patients Urinary Catheter Date of Insertion: 11/11/23 Urinary Catheter Time of Insertion: 06:18 Data 11/20/23 04:20 11/20/23 04:20 Micro: Microbiology 11/14/23 11:35 Anaerobic Culture - Preliminary Leg - #1 11/19/23 03:53 Gram Stain - Final Sputum - Expectorated Sputum A&P Assessment and plan (1) Cellulitis: (2) Necrotizing fasciitis due to Streptococcus pyogenes: (3) Sepsis: Plan Progressing from the general surgery standpoint, right lower extremity wound is improving, small amount of slough that is being debrided with wet-to-dry dressing. Patient will need to continue wet-to-dry dressing in a long-term until no granulation tissue in the base of the wound to support skin graft. White count is improving, respiratory status remains stable but is being monitored by the medical ICU team for possible deterioration. No further intervention planned at the moment for the general surgery standpoint all other management per primary team. Of note, patient was complaining of pain on the left lower extremity, I do not see any wounds or any evidence of fluctuance or superficial changes to the level of the ankle, if needed patient can be consider for further imaging to rule out subcutaneous collection that is now seen during exam. Attestations 2 Medical Necessity Statement*: Per medical ICU team Coding Level of Care Code Acute Code for [facility] Diagnoses Cellulitis L03.90 Necrotizing fasciitis due to Streptococcus pyogenes M72.6; B95.0 Sepsis A41.9
--- NOTE | 2023-11-20 12:41 | CT_ITS ---
[facility], [facility]AST. HISTORY: severe ankle pain, assess for ability to aspirate Technique: All CT scans at [facility] use at least one of these dose optimization techniques: automated exposure control; mA and/or kV adjustment per patient size (includes targeted exams where dose is matched to clinical indication); or iterative reconstruction. DLP: 141.70 mGy.cm COMPARISON: Radiograph 11/20/2023 No acute fracture or dislocation. Very slight asymmetry of the ankle mortise. Large well-circumscribe d bony fragment lateral to the talus. There is minimal soft tissue edema surrounding the ankle. There is no significant joint effusion. The re is no drainable collection. IMPRESSION: Minimal soft tissue edema. No drainable fluid collection.
--- NOTE | 2023-11-20 13:40 | XR_ITS ---
WS: [id number] Left ankle, 3 views, 11/20/2023 Clinical Data: Left ankle pain and swelling, no trauma, concern for gout Comparison: None. Findings: There is a 2 cm calcification adjacent to the lateral aspect of the talus and inferior to the distal tip of the left fibula. This calcification may be from prior trauma since no current trauma is likely . The ankle mortise is intact. No definite fractures or dislocations are seen. Impression: 2 cm calcification adjacent to the lateral aspect of the talus which may be from prior trauma.
--- NOTE | 2023-11-20 15:11 | PM.CONSULT ---
Providers/Reason For Consult Consulting Physician/Specialty*: Jomar Fong D.P.M. Reason for Consult*: Gout versus septic joint, left ankle. Attending Physician: Ochoa Oliver Primary Care Provider: Jason Harper DO History of Present Illness History of Present Illness Peter Herrmann is a 67 year old male admitted to the ICU. I was consulted by hospitalist for evaluation of left ankle pain. Suspicion of gout versus septic joint. Requesting arthrocentesis. Review of Systems General: Reports: 10 or more systems reviewed and unremarkable except in HPI and below Const: Denies: fever(s) or chills Eyes: Denies: change in vision Card: Denies: chest pain or palpitations Resp: Denies: dyspnea or productive cough GI: Denies: abdominal pain, nausea or vomiting : Denies: flank pain Musc: Reports: extremity swelling, joint stiffness and deformity Skin/Breast: Reports: erythema, sores, changes in skin color, dry skin, nail changes and change in hair Neuro: Reports: numbness in extremities, sensory changes and difficulty walking Psych: Denies: suicidal ideation Endo: Denies: change in body appearance Valeriy/Lymph: Denies: tender lymph nodes Medications/Allergies Home Medications Medication Instructions Recorded Confirmed Last Taken Type albuterol sulfate 90 mcg/actuation 2 puff inhalation Q6H PRN 02/01/21 11/11/23 02/11/21 History aerosol inhaler (ProAir HFA) Shortness Of Breath aspirin 81 mg tablet,delayed 81 mg PO QAM 02/01/21 11/11/23 11/10/23 History release fluticasone propionate 50 1 spray intranasal DAILY 06/06/23 11/11/23 06/06/23 History mcg/actuation nasal spray,suspension naproxen sodium 220 mg capsule 440 mg PO BID PRN Pain 06/06/23 11/11/23 Unknown History (Aleve) furosemide 40 mg tablet 40 mg PO BID 10/23/23 11/11/23 11/10/23 History potassium chloride 10 mEq 10 meq PO BID 10/23/23 11/11/23 11/10/23 History tablet,extended release amlodipine 10 mg tablet 10 mg PO DAILY #90 tabs 11/13/23 11/15/23 Unknown Rx budesonide 160 mcg-glycopyr 9 2 inh inhalation BID #10.7 grams 11/13/23 11/15/23 Unknown Rx mcg-formot 4.8 mcg/actuation HFA inhaler (Breztri Aerosphere) metoprolol tartrate 50 mg tablet 50 mg PO TID #90 tabs 11/13/23 11/15/23 Unknown Rx furosemide 80 mg tablet 80 mg PO BID 11/15/23 11/15/23 Unknown History sulfamethoxazole 800 2 tab PO BID 11/15/23 11/15/23 Unknown History mg-trimethoprim 160 mg tablet Allergies Allergy/AdvReac Type Severity Reaction Status Date / Time acetaminophen [From Tylenol] Allergy Unknown Verified 11/11/23 05:16 Opioids - Morphine Analogues Allergy ADR-Halluci Verified 11/11/23 05:16 nating Current Medications Generic Name Dose Route Start Last Admin Trade Name Freq PRN Reason Stop Dose Admin Budesonide 0.5 mg 11/13/23 08:00 11/20/23 07:53 Budesonide 0.5 Mg/2 Ml Neb INHALATION 0.5 mg BID.RESPIRATORY FREYA Administration Heparin Sodium (Porcine) 5,000 unit 11/18/23 21:00 11/20/23 08:42 Heparin 5,000 Unit/Ml Inj 1 Ml SUBCUT 5,000 unit Q12H FREYA Administration Hydromorphone HCl 0.2 mg 11/20/23 11:25 11/20/23 12:23 Hydromorphone 1 Mg/Ml Inj 1 Ml IVP 0.2 mg Q2H PRN Administration pain Dexmedetomidine/Sodium Chloride 400 mcg in 100 mls @ 0 mls/hr 11/14/23 20:15 11/19/23 07:00 Precedex IV 0 mcg/kg/hr .Q0M FREYA 0 mls/hr Titration Protocol Per Protocol Clindamycin HCl/Dextrose 900 mg in 50 mls @ 100 mls/hr 11/15/23 14:00 11/20/23 07:00 Cleocin IV Infused Q8H FREYA Infusion Protocol Levofloxacin/Dextrose 750 mg in 150 mls @ 100 mls/hr 11/18/23 21:00 11/19/23 20:56 Levaquin-D5w IV 100 mls/hr Q24H FREYA Administration Protocol Ipratropium [place] 0.5 mg 11/15/23 12:00 11/20/23 11:05 Ipratropium 0.5 Mg/2.5 Ml Neb INHALATION 0.5 mg Q4H.RESPIRATORY FREYA Administration Lanolin 1 applic 11/11/23 15:27 11/20/23 10:00 Lanolin Oint 7 Gm TOPICAL 1 applic PRN PRN Administration DRYNESS Levalbuterol HCl 0.63 mg 11/15/23 12:00 11/20/23 11:05 Levalbuterol 0.63 Mg/3 Ml Neb INHALATION 0.63 mg Q4H.RESPIRATORY FREYA Administration Lidocaine 1 patch 11/19/23 21:00 11/20/23 09:00 Lidocaine 5% Patch TOPICAL 1 patch [id number] FREYA Administration Metoprolol Tartrate 25 mg 11/15/23 18:00 11/20/23 06:14 Metoprolol Tartrate 25 Mg Tablet PO 25 mg Q12H FREYA Administration Multivitamins Therapeutic 1 tab 11/16/23 11:50 11/20/23 08:42 Multivitamin Therapeutic Tablet PO 1 tab DAILY FREYA Administration Nystatin 100,000 unit 11/16/23 11:50 11/20/23 12:26 Nystatin 100,000 Unit/Ml Udc 5 Ml PO 100,000 unit QID FREYA Administration Ondansetron HCl 4 mg 11/11/23 13:22 11/17/23 19:12 Ondansetron 2 Mg/Ml Sdv 2 Ml IVP 4 mg Q6H PRN Administration NAUSEA AND VOMITING Pantoprazole Sodium 40 mg 11/11/23 18:30 11/20/23 06:13 Pantoprazole 40 Mg Sdv IVP 40 mg Q12H FREYA Administration Promethazine HCl 12.5 mg 11/11/23 20:54 11/12/23 23:29 Promethazine 25 Mg/Ml Sdv 1 Ml IM 12.5 mg Q6H PRN Administration NAUSEA Saliva Substitute 1 spray 11/13/23 14:53 11/20/23 09:32 Saliva Stimulant [place] 30 Ml Btl MUCOUS MEM 1 spray PRN PRN Administration DRY MOUTH Sucralfate 1 gm 11/15/23 12:00 11/20/23 12:26 Sucralfate 1 Gm Tablet PO 1 gm AC&BEDTIME FREYA Administration Trazodone HCl 25 mg 11/16/23 21:45 11/19/23 20:55 Trazodone 50 Mg Tablet PO 25 mg BEDTIME FREYA Administration PFSH Acute PFSH: Medical History (Updated 11/20/23 @ 16:23 by Jomar Fong DPM) Legionella pneumonia CHF (congestive heart failure), NYHA class III LBBB (left bundle branch block) COPD (chronic obstructive pulmonary disease) COPD (chronic obstructive pulmonary disease) Wears 2 L of oxygen chronically HTN (hypertension) Surgical History (Updated 11/15/23 @ 16:51 by Rai Wheeler MD) No history of previous surgery Family History Other Hypertension Denies family history of Diabetes CAD (coronary artery disease) Clotting disorder Dementia Chronic kidney disease (CKD) Suicide Anesthesia complication Bleeding disorder Lung disease Cancer Stroke Social History Smoking and tobacco/nicotine status: former use of tobacco/nicotine Quit status (tobacco/nicotine): has quit using Alcohol intake: former Substance/Drug Use: current Other substance/drug use details: No inhalation. Housing: House Vitals/I&O/Wt Last Vital Signs Temp 98.6 F 11/20/23 08:00 Pulse 104 H 11/20/23 14:20 Resp 21 H 11/20/23 12:23 BP 141/88 11/20/23 08:00 Pulse Ox 97 11/20/23 12:23 O2 Del Method BiPAP 11/20/23 11:05 O2 Flow Rate 12 11/19/23 20:50 FiO2 40 11/20/23 11:11 11/20/23 11/20/23 11/20/23 06:59 14:59 22:59 Intake Total 50 / 404.864 200 / 200 Output Total 250 / 1200 Balance -200 / -795.136 200 / 200 Weight last 48 hrs Weight 217 lb Weight 219 lb 5 oz Physical Exam Narrative: GENERAL: Patient is alert and oriented ?3 and in no acute distress. The following is a focused left lower extremity exam. VASCULAR: Dorsalis pedis palpable, left. Left posterior tibial artery palpable. Capillary refill time less than 3 seconds to the distal hallux bilaterally. Calf is supple and nontender proximally and distally. NEUROLOGICAL: Protective sensation intact to light touch. No increased edema at the left ankle. DERMATOLOGICAL: No warmth or erythema or crepitus at left ankle. Excoriation at the distal one third lateral leg, left without erythema, warmth or drainage. MUSCULOSKELETAL: Exquisite tenderness to palpation globally at left ankle. Able to wiggle left toes on command. Muscle strength +5 in all 3 planes with pain and guarding at left ankle. No crepitus on palpation of left ankle soft tissue circumferentially. Urinary Catheter Management: Love: Cath Placed During This Visit: yes Reason for Continuing Indwelling Catheter: Accurate Measurement of Urinary Output in Critically Ill Patients Urinary Catheter Date of Insertion: 11/11/23 Urinary Catheter Time of Insertion: 06:18 Data 11/20/23 04:20 11/20/23 04:20 Micro: Microbiology 11/19/23 03:53 Gram Stain - Final Sputum - Expectorated Sputum Sputum Culture - Preliminary 11/14/23 11:35 Anaerobic Culture - Preliminary Leg - #1 A&P Assessment and plan (1) Acute left ankle pain: Plan Acute left ankle pain, concern for gout versus septic joint. X-ray and CT scan negative for acute fracture or dislocation, negative for soft tissue edema. Clinically there is no edema and no warmth or erythema at the left ankle. He has exquisite tenderness to palpation at the left ankle. After obtaining verbal and written consent a timeout was performed. The left anterior ankle was palpated and the medial gutter was identified. Chlorhexidine scrub was performed followed by arthrocentesis of the left ankle joint harvesting 5 cc of joint fluid. Poor appearance of synovial fluid had decreased viscosity and had purulent off yellow appearance. Joint fluid left ankle sent to microbiology for the following: Culture with Gram stain Fluid analysis for monosodium urate crystals WBC Glucose Will discuss further treatment options once laboratory findings are available for review. Coding Level of Care Code Acute Code for [facility] Diagnoses Acute left ankle pain M25.572 Comment Arthrocentesis left ankle CPT 25941
--- NOTE | 2023-11-20 16:21 | PC.NURSE ---
Dr Fong, here at [facility]. Left ankle aspiration completed. Fluid sent to lab.
[2023-11-20 17:13] LABS: Crystals, Fluid SENT TO PATH
[2023-11-20 17:52] LABS: Glucose Point of Care 102 mg/dL (70-110)
--- NOTE | 2023-11-20 18:48 | PC.NURSE ---
Shift summary: Pt was not able to get out of bed this shift due to painful ankle/ leg and his increased work of breathing. He wore the BiPa with 40% FIO2 for most of the shift. This afternoon he was switched to heated high flow 50 liters and 60%, he is tolerating that well. you can hear phlegm in his throat and chest, he coughs but it is not productive at this time. His heart rhythm has been sinus and bounces to bundle branch block. Dr Hanson changed his right leg dressing today. His left ankle was very painful to touch so he had a CT, and xray of it. Dr Fong aspirated fluid from it, which was sent to lab, full of WBCs. Pain medication frequency decreased to 2 hours, seems to help him more. NO BM noted this shift. Urine output of 650 dark yellow strong odor noted.
[2023-11-20] MEDS: levofloxacin-dextrose 5 % 750 MG/150 ML PREMIX 100 MG IV (20:45)
[2023-11-20] MEDS: trazodone 50 mg Tablet 25 MG PO (20:50)
--- NOTE | 2023-11-20 22:05 | P.PN_ITS ---
Subjective 2 Subjective: States he is doing about the same today. Unchanged. With finding of tenderness in the left ankle states has been building up for about 3 days. Vitals/I&O/Wt Last Vital Signs Temp 100.1 F H 11/20/23 19:00 Pulse 110 H 11/20/23 21:30 Resp 20 H 11/20/23 21:30 BP 118/74 11/20/23 21:30 Pulse Ox 96 11/20/23 21:30 O2 Del Method Heated High Flow 11/20/23 20:37 O2 Flow Rate 50 11/20/23 20:37 FiO2 60 11/20/23 20:37 11/20/23 11/20/23 11/20/23 06:59 14:59 22:59 Intake Total 50 / 404.864 200 / 200 330 / 530 Output Total 250 / 1200 650 / 650 Balance -200 / -795.136 200 / 200 -320 / -120 Weight last 48 hrs Weight 98.43 kg Weight 99.478 kg Physical Exam 2 Narrative: Sitting up in bed Const: COMMON NORMALS: patient oriented x3 and alert GENERAL APPEARANCE: c ooperative ORIENTATION/CONSCIOUSNESS: Yes awake HENMT: COMMON NORMALS: oropharynx normal Neck/C-Spine: COMMON NORMALS: no JVD Resp: COMMON NORMALS: normal respiratory effort and clear to auscultation bilaterally AUSCULTATION: clear to auscultation bilaterally, rhonchi and wheezes Cardio: COMMON NORMALS: no JVD, regular rhythm, S1 normal heart sound present, S2 normal heart sound present and No murmurs present (Cardio) RHYTHM: regular rhythm HEART SOUNDS: S1 normal heart sound present and S2 normal heart sound present GI: COMMON NORMALS: Normal to inspection, nondistended, normoactive bowel sounds present, Soft to palpation and non-tender PALPATION: Yes Soft to palpation Extremity: COMMON NORMALS: no joint enlargement and no pedal edema N ARRATIVE EXTREMITY EXAM: Severe left ankle tenderness. No redness, open wounds, fluctuance. OTHER: Examined other joints, no pain or swelling. Neuro: COMMON NORMALS: patient oriented x3 and moves all extremities S ENSORIUM/ORIENTATION: Yes alert Skin: COMMON NORMALS: no rashes or lesions noted GENERAL SKIN EXAM: no rashes or lesions noted OTHER: Dressing of right lower extremity without strikethrough or bleeding. Urinary Catheter Management: Love: Cath Placed During This Visit: yes Reason for Continuing Indwelling Catheter: Accurate Measurement of Urinary Output in Critically Ill Patients Urinary Catheter Date of Insertion: 11/11/23 Urinary Catheter Time of Insertion: 06:18 Data 11/20/23 16:12 11/20/23 04:20 Micro: Microbiology 11/14/23 11:35 Anaerobic Culture - Preliminary Leg - #1 11/18/23 21:13 Blood Culture - Preliminary Blood 11/18/23 21:01 Blood Culture - Preliminary Blood 11/19/23 03:53 Gram Stain - Final Sputum - Expectorated Sputum Sputum Culture - Preliminary A&P Assessment and plan (1) Acute left ankle pain: Very tender left ankle noted on exam today. He states building up over about 2- 3 days. No fluctuance, superficial wound or erythema. Or, very tender ankle. With recent necrotizing infection of right lower extremity, with strep and staph growing in the wound, persistent leukocytosis, tachycardia. Possible septic arthritis, discussed with him. Not a candidate for MRI. Not a safe candidate for contrast-enhanced CT with some worsening renal function, creatinine up to 2. Discussed with orthopedics on-call, radiology, obtain CT as per recommendation, discussed with podiatry, with concern for possible septic arthritis appreciate consultation, arthrocentesis, studies sent for cell count, culture, crystals. Noted 52,000 WBC. Uric acid requested, also noted elevated 12. Discussed with patient and his son, unfortunately suspicion still remains regarding septic arthritis given recent infection, persistent sirs. Discussed risk to the joint with septic arthritis, recommended treatment with joint washout. Discussed with pulmonology. Consideration of likely seizure versus intubation and mechanical ventilatory support depending on anesthesia assessment. In addition with suspicion of concomitant gout, pending crystals. He has no uric acid level very elevated at 12. Not a safe candidate for allopurinol at the moment with worsening renal function. Discussed with pharmacist. Requested rasburicase. Discussed with him. (2) Hypoxia: Persistent hypoxia, on BiPAP overnight and this morning. Discussed with RT, switched over to heated high flow to allow for pulmonary toilet, expectoration. Continue empiric antibiotic coverage. Continue breathing treatments. Diminished air entry, wheezing. Would benefit from steroids, or, concern for septic arthritis currently as above. Discussed with horticulture teacher. Additional treatment for left ankle as above. Consideration of steroid with source control. Discussed with him and his son, discussed risks. Continue n.p.o. for now. BiPAP support as needed but would prefer to maintain on heated high flow if possible. Continue meropenem, clindamycin. Levaquin. Continue chest vest, pulmonary toilet. Flutter valve. Continue oxygen support, BiPAP support as needed. Reviewed hemoglobin. VTE prophylaxis. (3) Necrotizing fasciitis due to Streptococcus pyogenes: Discussed with surgeon, wound was reassessed, he is doing well. As per surgery in case needed steroids given good healing of the wound in the right lower extremity steroids likely should be okay. Reviewed surgery note. No additional debridement at this time. Having some pain in his right leg, not a candidate for NSAIDs, reports rash from acetaminophen, history of hallucination with opioids, but states this was at least several decades ago, request to try small dose of. With monitoring. Continue IV antibiotics. Continue clindamycin for now. At risk of C. difficile with clindamycin. Monitor. Still noted elevated WBC. Noted 1 loose stool today. Monitor for C. difficile/persistent diarrhea. Reviewed C. difficile PCR, study had been sent 11/15, pending. C. difficile requested. Negative Continue wound reassessments. Discussed with case assembler. (4) Sepsis: Persistent SIRS, possible persistent sepsis with possible septic arthritis as above. Continue empiric antibiotic coverage. No additional debridement today. Patient presents with sepsis presumably from his right lower extremity cellulitis Septic shock has resolved. Patient continues to have leukocytosis, severe anemia with borderline blood pressures and tachycardia. Maintain mean artery pressure over 65. Maintain saturation over 90%. Strict input output charting, daily weights. (5) Cellulitis: Patient with evidence of right lower extremity cellulitis. Post debridement. Follow-up blood culture, wound culture. Wound culture growing group A strep. Given concerns for deep extensive tissue infection requiring deep debridement for now we will add clindamycin. MRSA swab negative so vancomycin was discontinued. Continue with meropenem. Wound care as per surgical team. Out of bed to chair. Patient has persistent leukocytosis. Mild trending down since debridement but not as much as expected. Will need to continue to monitor the wound to make sure he does not require further debridement. Recheck stool for C. difficile (6) Status post excisional debridement: (7) Anemia associated with acute blood loss: This is secondary to upper GI bleed. Appreciate surgical recommendations. Post endoscopy. 11/12 showed gastric ulcers. Hemoglobin down to 7.1 today. Transfuse 2 unit of PRBC keeping hemoglobin over 8. Continue with Protonix twice daily. Add Carafate before meals and at bedtime. Hold off on anticoagulation. Till now patient has received 2 units of blood transfusion and 1 unit of FFP. (8) ALTA (acute kidney injury): Reviewed renal function. Slight improvement. Stop albumin. Strict improper charting, daily weights. Monitor BMP in evening. Love in place. Hypernatremia improved. (9) Pulmonary emphysema: (10) COPD (chronic obstructive pulmonary disease): Qualifiers: COPD type: unspecified COPD Qualified Code(s): J44.9 - Chronic obstructive pulmonary disease, unspecified (11) LBBB (left bundle branch block): Had nonsustained V. tach episode. EKG on admission did not show LBBB but today morning EKG shows LBBB. Can be intermittent LBBB in setting of demand ischemia but cannot rule out ACS given new LBBB for now. Recheck troponins, check echocardiogram. Metoprolol. (12) NSVT (nonsustained ventricular tachycardia): (13) Hypothermia: Resolved (14) Hypotension: Resolved. Now off norepinephrine and albumin (15) Hyperkalemia: Resolved (16) Acute encephalopathy: Seems to be improving. Patient is out of bed to chair. Continue to monitor. Precedex if needed. Otherwise can add Xanax 0.25 mg nightly as needed. (17) Alkaline phosphatase elevation: New elevation of alk phos up to 190. Known cholelithiasis. Requested gallbladde. ultrasound. Plan CODE STATUS: Son will be the DPOA. Patient would want to remain full code for now. But does not want to remain on life support for long. PUD prophylaxis: Full dose Protonix twice daily DVT prophylaxis: SCDs. Hold off on medical prophylaxis given GI bleed Continue with care at ICU level This documentation was created by [employer] circulation director software. Every effort was made to ensure accuracy of circulation director. Any obvious errors or omissions should be clarified with the author of the document. Attestations 2 Medical Necessity Statement*: Continue admission for assessment management of possible septic arthritis, respiratory failure, necrotizing right leg infection. Coding Level of Care Code Critical Care >/= 30 minutes Critical care time (in minutes): 50 Diagnoses Acute left ankle pain M25.572 Hypoxia R09.02 Necrotizing fasciitis due to Streptococcus pyogenes M72.6; B95.0 Sepsis A41.9 Cellulitis L03.90 Status post excisional debridement Z98.890 Anemia associated with acute blood loss D62 ALTA (acute kidney injury) N17.9 Pulmonary emphysema J43.9 Chronic obstructive pulmonary disease, unspecified COPD type J44.9 COPD type: unspecified COPD LBBB (left bundle branch block) I44.7 NSVT (nonsustained ventricular tachycardia) I47.29 Hypothermia T68.XXXA Hypotension I95.9 Hyperkalemia E87.5 Acute encephalopathy G93.40 Alkaline phosphatase elevation R74.8
[2023-11-21] VITALS (62 sets, daily range): BP systolic 108–143; BP diastolic 58–93; PULSE 83–113; RESP 16–33; TEMP 36.6–37.6; O2SAT 82–100
[2023-11-21] MEDS: ipratropium 0.5 mg/2.5 mL Neb INHALATION ×6 (01:40→20:28)
[2023-11-21] MEDS: levalbuterol 0.63 mg/3 mL Neb INHALATION ×6 (01:40→20:29)
[2023-11-21] MEDS: HYDROmorphone 1 mg/mL INJ 1 mL 0.2 MG IVP ×4 (02:38→14:51)
[2023-11-21 05:10] LABS: ABG PCO2 55.7 mmHg (35-45); ABG PH Result 7.34 (7.35-7.45); Arterial Blood Gas Hematocrit 26.2 % (42-52); Base Excess ABG 3.3 mmol/L (-2.0-2.0); Blood Gas Allen Test Pos; Blood Gas Sample Site Brachial, left; Blood Gas Sample Type Venous; HCO3 ABG 29.8 mmol/L (22-26); PO2 ABG 37.6 mmHg (80.0-100.0); PO2 FiO2 Ratio Arterial Blood 0
[2023-11-21 05:11] LABS: Oxygen Device HEATED HIGH FLOW
[2023-11-21] MEDS: clindamycin 900 MG/50 ML PREMIX 100 MG IV ×3 (05:18→21:15)
[2023-11-21 05:21] LABS: Basophils # 0.1 10^3/uL (0.0-0.1); Basophils % 0.5 %; Eosinophils % 0.1 %; Hematocrit 26.5 % (37-53); Lymphocytes # 0.8 10^3/uL (0.8-4.8); Lymphocytes % 4.4 %; Mean Corpuscular HGB Conc 30.2 g/dL (30-55); Mean Corpuscular Hemoglobin 28.6 pg (27-33); Mean Corpuscular Volume 94.6 fl (82-101); Mean Platelet Volume 10.8 fL (7.4-10.4); Monocytes # 1.7 10^3/uL (0.2-0.9); Monocytes % 9.2 %; Neutrophils # 16.06 10^3/uL (1.8-7.7); Neutrophils % 85.2 %; Nucleated Red Blood Cells % 0 %; Platelet Count 528 10^3/cmm (157-399); Red Cell Distribution Width 18.6 % (12.1-15.1); White Blood Count 18.86 10^3/uL (3.29-11.43)
[2023-11-21] MEDS: metoprolol tartrate 25 mg Tablet PO ×2 (05:23→17:04)
[2023-11-21] MEDS: pantoprazole 40 mg SDV IVP ×2 (05:25→17:53)
[2023-11-21] MEDS: sucralfate 1 gm Tablet PO ×3 (05:26→21:15)
[2023-11-21 05:53] LABS: Alanine Aminotransferase 11 U/L (0-41); Albumin Level 3.3 g/dL (3.5-5.2); Alkaline Phosphatase 93 U/L (40-130); Aspartate Amino Transferase 19 U/L (0-40); Chloride 109 mmol/L (98-107); Globulin 4.3 g/dL (1.3-4.6); Glucose 122 mg/dL (65-115); Potassium 3.7 mmol/L (3.5-5.1); Sodium 147 mmol/L (136-145); Total Protein 7.6 g/dL (6.6-8.7)
[2023-11-21 06:06] LABS: Anion Gap 15.7 (5-19); Blood Urea Nitrogen 41 mg/dL (8-23); Calcium 9.1 mg/dL (8.5-10.5); Carbon Dioxide 26 mmol/L (22-29); Creatinine Clr Calc Pharmacy 40.4178; Glomerular Filtration Rate 33.6 mL/min (90-130); Osmolality Calculated 315 mOsm/kg (285-295); Total Bilirubin 0.4 mg/dL (0.15-1.2)
[2023-11-21 07:47] LABS: Glucose Point of Care 96 mg/dL (70-110)
[2023-11-21] MEDS: multivitamin therapeutic Tablet 1 TAB PO (07:50)
[2023-11-21] MEDS: nystatin 100,000 unit/mL UDC 5 mL 100000 UNIT PO ×4 (07:50→20:05)
[2023-11-21] MEDS: budesonide 0.5 mg/2 mL Neb INHALATION ×2 (08:29→20:29)
[2023-11-21] MEDS: lidocaine 5% Patch 1 PATCH TOPICAL ×2 (09:00→21:14)
[2023-11-21] MEDS: meropenem 1,000 MG in sodium chloride 0.9% (plus) 50 ML 100 MG IV ×2 (09:34→20:06)
--- NOTE | 2023-11-21 11:23 | P.ANESASSM_ITS ---
Pre-Anesthetic Assessment Height/Weight: Height 1.7 m Weight 97.477 kg Temp Pulse Resp BP Pulse Ox O2 Del Method O2 Flow Rate 99.5 F 104 H 22 H 127/69 93 Heated High Flow 50 11/21/23 08:00 11/21/23 11:14 11/21/23 11:14 11/21/23 10:00 11/21/23 11:14 11/21/23 11:14 11/21/23 11:14 FiO2 60 11/21/23 11:14 Preop Diagnosis: Left septic ankle joint Operation Date: 11/12/23 12:15 Proposed Procedures p EGD(Not Applicable) - Brent Cummings MD Operation Date: 11/14/23 12:55 Proposed Procedures p Right lower extremity debridement(Right) - Brent Cummings MD Operation Date: 11/21/23 12:00 Proposed Procedures p Arthroscopic debridement left ankle(Left) - Jomar Fong DPM Exam alert and oriented x 3 Airway Submandibular: within normal limits Mallampati: Class I Pulmonary Chronic Obstructive Pulmonary Disease and Shortness of Breath coarse breath sounds bilaterally with ronchi. Wears 2 liters oxygen at all times. CV/HEM recent echo with LVEF 67% Chronic Renal Insufficiency Metabolic None reported Musc/skel None reported Anesthetic Plan ASA status: 4 Anesthesia: Eval. for regional block (spinal) Other Pertinent Information last heparin greater than 12 hours Medications/Allergies Home Medications Medication Instructions Recorded Confirmed Last Taken Type albuterol sulfate 90 mcg/actuation 2 puff inhalation Q6H PRN 02/01/21 11/11/23 02/11/21 History aerosol inhaler (ProAir HFA) Shortness Of Breath aspirin 81 mg tablet,delayed 81 mg PO QAM 02/01/21 11/11/23 11/10/23 History release fluticasone propionate 50 1 spray intranasal DAILY 06/06/23 11/11/23 06/06/23 History mcg/actuation nasal spray,suspension naproxen sodium 220 mg capsule 440 mg PO BID PRN Pain 06/06/23 11/11/23 Unknown History (Aleve) furosemide 40 mg tablet 40 mg PO BID 10/23/23 11/11/23 11/10/23 History potassium chloride 10 mEq 10 meq PO BID 10/23/23 11/11/23 11/10/23 History tablet,extended release amlodipine 10 mg tablet 10 mg PO DAILY #90 tabs 11/13/23 11/15/23 Unknown Rx budesonide 160 mcg-glycopyr 9 2 inh inhalation BID #10.7 grams 11/13/23 11/15/23 Unknown Rx mcg-formot 4.8 mcg/actuation HFA inhaler (Breztri Aerosphere) metoprolol tartrate 50 mg tablet 50 mg PO TID #90 tabs 11/13/23 11/15/23 Unknown Rx furosemide 80 mg tablet 80 mg PO BID 11/15/23 11/15/23 Unknown History sulfamethoxazole 800 2 tab PO BID 11/15/23 11/15/23 Unknown History mg-trimethoprim 160 mg tablet Allergies Allergy/AdvReac Type Severity Reaction Status Date / Time acetaminophen [From Tylenol] Allergy Unknown Verified 11/11/23 05:16 Opioids - Morphine Analogues Allergy ADR-Halluci Verified 11/11/23 05:16 nating Current Medications Generic Name Dose Route Start Last Admin Trade Name Freq PRN Reason Stop Dose Admin Budesonide 0.5 mg 11/13/23 08:00 11/21/23 08:29 Budesonide 0.5 Mg/2 Ml Neb INHALATION 0.5 mg BID.RESPIRATORY FREYA Administration Heparin Sodium (Porcine) 5,000 unit 11/18/23 21:00 11/21/23 10:30 Heparin 5,000 Unit/Ml Inj 1 Ml SUBCUT Not Given Q12H FREYA Hydromorphone HCl 0.2 mg 11/20/23 11:25 11/21/23 07:51 Hydromorphone 1 Mg/Ml Inj 1 Ml IVP 0.2 mg Q2H PRN Administration pain Dexmedetomidine/Sodium Chloride 400 mcg in 100 mls @ 0 mls/hr 11/14/23 20:15 11/21/23 00:51 Precedex IV Infused .Q0M FREYA Titration Protocol Per Protocol Clindamycin HCl/Dextrose 900 mg in 50 mls @ 100 mls/hr 11/15/23 14:00 11/21/23 05:53 Cleocin IV Infused Q8H FREYA Infusion Protocol Levofloxacin/Dextrose 750 mg in 150 mls @ 100 mls/hr 11/18/23 21:00 11/20/23 22:18 Levaquin-D5w IV Infused Q24H FREYA Infusion Protocol Meropenem 1,000 mg/ Sodium 50 mls @ 100 mls/hr 11/20/23 21:00 11/21/23 10:27 Chloride IV Infused Q12H FREYA Infusion Protocol Ipratropium [place] 0.5 mg 11/15/23 12:00 11/21/23 11:11 Ipratropium 0.5 Mg/2.5 Ml Neb INHALATION 0.5 mg Q4H.RESPIRATORY FREYA Administration Lanolin 1 applic 11/11/23 15:27 11/20/23 10:00 Lanolin Oint 7 Gm TOPICAL 1 applic PRN PRN Administration DRYNESS Levalbuterol HCl 0.63 mg 11/15/23 12:00 11/21/23 11:11 Levalbuterol 0.63 Mg/3 Ml Neb INHALATION 0.63 mg Q4H.RESPIRATORY FREYA Administration Lidocaine 1 patch 11/19/23 21:00 11/21/23 09:00 Lidocaine 5% Patch TOPICAL 1 patch [id number] FREYA Administration Metoprolol Tartrate 25 mg 11/15/23 18:00 11/21/23 05:23 Metoprolol Tartrate 25 Mg Tablet PO 25 mg Q12H FREYA Administration Multivitamins Therapeutic 1 tab 11/16/23 11:50 11/21/23 07:50 Multivitamin Therapeutic Tablet PO 1 tab DAILY FREYA Administration Nystatin 100,000 unit 11/16/23 11:50 11/21/23 07:50 Nystatin 100,000 Unit/Ml Udc 5 Ml PO 100,000 unit QID FREYA Administration Ondansetron HCl 4 mg 11/11/23 13:22 11/17/23 19:12 Ondansetron 2 Mg/Ml Sdv 2 Ml IVP 4 mg Q6H PRN Administration NAUSEA AND VOMITING Pantoprazole Sodium 40 mg 11/11/23 18:30 11/21/23 05:25 Pantoprazole 40 Mg Sdv IVP 40 mg Q12H FREYA Administration Promethazine HCl 12.5 mg 11/11/23 20:54 11/12/23 23:29 Promethazine 25 Mg/Ml Sdv 1 Ml IM 12.5 mg Q6H PRN Administration NAUSEA Saliva Substitute 1 spray 11/13/23 14:53 11/20/23 17:46 Saliva Stimulant [place] 30 Ml Btl MUCOUS MEM 1 spray PRN PRN Administration DRY MOUTH Sucralfate 1 gm 11/15/23 12:00 11/21/23 05:26 Sucralfate 1 Gm Tablet PO 1 gm AC&BEDTIME FREYA Administration Trazodone HCl 25 mg 11/16/23 21:45 11/20/23 20:50 Trazodone 50 Mg Tablet PO 25 mg BEDTIME FREYA Administration [facility] Anesthesia Medical History (Updated 11/20/23 @ 16:23 by Jomar Fong DPM) Legionella pneumonia CHF (congestive heart failure), NYHA class III LBBB (left bundle branch block) COPD (chronic obstructive pulmonary disease) COPD (chronic obstructive pulmonary disease) Wears 2 L of oxygen chronically HTN (hypertension) Surgical History (Updated 11/15/23 @ 16:51 by Rai Wheeler MD) No history of previous surgery Family History Other Hypertension Denies family history of Diabetes CAD (coronary artery disease) Clotting disorder Dementia Chronic kidney disease (CKD) Suicide Anesthesia complication Bleeding disorder Lung disease Cancer Stroke Social History Smoking and tobacco/nicotine status: former use of tobacco/nicotine Quit status (tobacco/nicotine): has quit using Alcohol intake: former Substance/Drug Use: current Other substance/drug use details: No inhalation. Housing: House Data Anesthesia 11/21/23 05:08 11/21/23 05:08 Short CBC 11/20/23 11/20/23 11/21/23 Range/Units 04:20 16:12 05:08 WBC 22.49 H 52.00 H* 18.86 H (3.29-11.43) 10^3/uL Hgb 8.10 L 8.00 L (11.27-16.99) g/dL Hct 26.6 L 26.5 L (37-53) % MCV 92.4 94.6 (82-101) fl Plt Count 583 H 528 H (157-399) 10^3/cmm Neut % (Auto) 85.6 85.2 % Neut # (Auto) 19.25 H 16.06 H (1.8-7.7) 10^3/uL BMP 11/20/23 11/20/23 11/21/23 02:17 04:20 05:08 Sodium 146 H 145 147 H Potassium 3.8 3.8 3.7 Chloride 106 106 109 H Carbon Dioxide 27 26 26 BUN 36 H 35 H 41 H Creatinine 1.9 H 2.0 H 2.0 H Glucose 97 87 122 H Calcium 9.1 9.1 9.1 Cardiac Enzymes 11/20/23 11/20/23 11/20/23 Range/Units 02:17 04:20 08:19 Troponin T Baseline 45 H (0-15) ng/L Troponin T 120 Minute 43.74 H (0-15) ng/L Delta Troponin T -1.26 L (0-10) ABS# Troponin T Hi Sens 6Hr 44.19 H (0-15) ng/L Troponin T Hi Sens 6Hr Delta -0.81 L (0-12) ng/L NT-Pro-B Natriuret Pep 2964 H (0-125) pg/mL Liver Function 11/20/23 11/21/23 Range/Units 04:20 05:08 Total Bilirubin 0.3 0.4 (0.15-1.2) mg/dL AST 18 19 (0-40) U/L ALT 12 11 (0-41) U/L Alkaline Phosphatase 81 93 (40-130) U/L Albumin 3.7 3.3 L (3.5-5.2) g/dL ABG 11/21/23 04:55 Specimen Type Venous Sample Site Brachial, left ABG pH 7.34 L ABG pCO2 55.7 H ABG pO2 37.6 L* ABG PO2/FiO2 Ratio 0 ABG HCO3 29.8 H ABG Base Excess 3.3 H O2 Delivery Device Heated high flow O2 Liters/Min 50.0 FiO2 60.0 Microbiology 11/14/23 11:35 Anaerobic Culture - Preliminary Leg - #1 11/18/23 21:13 Blood Culture - Preliminary Blood 11/18/23 21:01 Blood Culture - Preliminary Blood 11/19/23 03:53 Gram Stain - Final Sputum - Expectorated Sputum Sputum Culture - Preliminary Cardiac Studies: 2 Echocardiogram 11/15/23 Echocardiogram Ultrasound 02/07/21
[2023-11-21 11:48] LABS: Glucose Point of Care 103 mg/dL (70-110)
--- NOTE | 2023-11-21 12:25 | W.PM.OPSUD ---
Surgery/Procedure H&P Update DATE OF PROCEDURE: November 21, 2023 DATE H&P PERFORMED: 11/11/23 H&P UPDATE INFORMATION: I have reviewed H&P completed within last 30 days, I have examined patient prior to procedure, No changes to prior documentation and H&P is in [facility] [place] [place] EMR on date indicated PREOP DIAGNOSIS: Left septic ankle joint PLANNED PROCEDURE: Operation Date: 11/12/23 12:15 Proposed Procedures p EGD(Not Applicable) - Brent Cummings MD Operation Date: 11/14/23 12:55 Proposed Procedures p Right lower extremity debridement(Right) - Brent Cummings MD Operation Date: 11/21/23 12:00 Proposed Procedures p Arthroscopic debridement left ankle(Left) - Jomar Fong DPM
--- NOTE | 2023-11-21 12:51 | PC.OT ---
OT tx attempted at this time. Pt on his way to surgery for L ankle debridement. Tx to be attempted again at later time.
--- NOTE | 2023-11-21 13:21 | PC.SOCIAL ---
IMM Update pg 2 of IMM updated and reviewed w/ patient. Copy provided and copy dated, initialed and placed in chart.
[2023-11-21] MEDS: lidocaine-epi 1% PF 1:200,000 30 mL SDV INJECTION (13:24)
--- NOTE | 2023-11-21 13:38 | PC.SLP ---
ENGINEERING AND DEVELOPMENT DIRECTOR checked for follow-up, however, patient is not in his room at this time.
--- NOTE | 2023-11-21 13:42 | PM.OP ---
Operative Report Date of procedure: November 21, 2023 Pre-op diagnosis: Left septic ankle Post-op diagnosis: Left septic ankle Post-op findings: purulence left ankle joint Procedure done: Left ankle scope with irrigation and debridement Implants: 4-0 nylon Specimens removed/disposition: None Pathology: None Surgeon: Jomar Fong DPM Hydroelectric Mechanic: Maryann Estimated blood loss: 2 No tourniquet IV fluids: 0 Urine output: 0 Complications: None Findings: Purulence left ankle joint Brief History: Acute left ankle pain, concern for gout versus septic joint. X-ray and CT scan negative for acute fracture or dislocation, negative for soft tissue edema. Clinically there is no edema and no warmth or erythema at the left ankle. He has exquisite tenderness to palpation at the left ankle. After obtaining verbal and written consent a timeout was performed. The left anterior ankle was palpated and the medial gutter was identified. Chlorhexidine scrub was performed followed by arthrocentesis of the left ankle joint harvesting 5 cc of joint fluid. Poor appearance of synovial fluid had decreased viscosity and had purulent off yellow appearance. 52 white count and decreased glucose. Recommended ankle arthroscopy with irrigation and debridement left ankle joint. Patient agreeable and wishes to proceed. I reviewed at length with the patient, the risks, potential complications, benefits, alternatives, expectations, and typical outcomes associated with the surgery. The risks and potential complications were explained in detail, including but not limited to infection, wound dehiscence or soft tissue complications, bleeding and hematoma, chronic edema, neuritis or nerve damage producing numbness or chronic pain, CRPS, failure to relieve pain or worsening pain, thick / painful / unsightly scar, limited motion / stiffness, malposition, delayed union, malunion, or nonunion, fracture, reaction to implants, anesthetic complications, venous thromboembolism, and deformity recurrence. I discussed the notion of no regrets with the patient as it pertains to complications and outcomes. The patient seemed to understand the nature of the proposed care and required convalescence. They asked appropriate questions, answered to their satisfaction. They are aware no guarantees can be made as to a satisfactory outcome and they understand there may be other possible unforeseen complications or outcomes not listed here that will be treated accordingly if they arise. There were no written or implied guarantees given to the patient. They gave informed consent to proceed. Procedure: Under mild sedation the patient was brought to the operating room and remained on the ICU gurney in supine position. A timeout was performed. Left lower extremity was scrubbed, prepped and draped utilizing normal aseptic technique. A total of 30 cc of 1% lidocaine with epinephrine insufflated within the ankle joint and flushed out purulent drainage appreciated total of 3 cc of purulence encountered. Anterior medial ankle portal was established utilizing 15 blade and the Arik tuck technique with curved hemostat. Arthrotomy was performed and further purulence was expressed from the ankle joint this was a white and off yellow purulence. Ankle scope was inserted through a trocar and obturator in the tibiotalar joint was visualized. Light debridement was performed of hemorrhagic synovitis at the anterior tibiotalar joint. 3 L of irrigation was performed with sterile saline through the tibiotalar joint, no purulence or other devitalized tissue appreciated at joint capsule, ligaments that were appreciated intraoperatively that are intracapsular or tibiotalar joint surfaces. The anterior medial and lateral portals were closed with 4-0 nylon. Covered with OpSite. Patient returned back to the ICU to continue empiric IV antibiotics. Will continue to monitor his response daily.
--- NOTE | 2023-11-21 14:03 | PC.NURSE ---
Pt arrived back to ICU from Surgery. Heated high flow NC placed back on at same settings: 50 liters 60%. Pt denies pain at this time. Pt asked for Sprite and Ice stated Dr Hanson said he could have some after surgery. This nurse offered water and mouth wash to rinse at spit an this time, until orders could be reviewed. Pt became angry and started throwing a fit. Dr Oliver notified about request and fit. Ok to give a couple spoonfuls of thickened Sprite. This supplied to pt.
--- NOTE | 2023-11-21 14:45 | PC.NURSE ---
Pt refused to follow NPO. He is still demanding Sprite and ice. He stated he just wanted to be treated like a human. staff wasn't listening to him and he was going to have that Sprite. Sprite and ice given to him. Pt informed, that his refusal would need to be documented. He stated he was just fine with that.
--- NOTE | 2023-11-21 15:12 | ANE.PACU2 ---
Inpatient post-anesthesia follow up: Vital signs: Temperature 99.7 F Pulse Rate [Curren t] 104 Pulse Rate 99 Respiratory Rate [ Current] 22 Respiratory Rate 25 Blood Pressure 126/79 Pulse Oximetry [Cu rrent] 93 Pulse Oximetry 91 Oxygen Delivery Me thod [ Nasal Cannula Current Rate & Del dimitrios] Oxygen Delivery Me thod Heated High Flow Oxygen Flow Rate [ Current] 50 Oxygen Flow Rate [ Current Rate 2 & Delivery] Oxygen Flow Rate 50 Fraction of Inspir ed Oxygen [ 60 Current] Fraction of Inspir ed Oxygen 60 Hydration adequate: Yes Nausea and vomiting: No Pain level: Other (controlled) Mental status: Baseline Additional Comments: resp status unchanged from preop
[2023-11-21] MEDS: HYDROmorphone 1 mg/mL INJ 1 mL 0.4 MG IVP ×3 (17:07→23:43)
[2023-11-21] MEDS: lanolin oint 7 gm 1 APPLIC TOPICAL (17:09)
[2023-11-21] MEDS: saliva stimulant spray 30 mL Btl 1 SPRAY MUCOUS MEM (17:10)
--- NOTE | 2023-11-21 19:12 | PM.PN ---
Vitals/I&O/Wt Last Vital Signs Temp 99.7 F H 11/21/23 16:00 Pulse 104 H 11/21/23 18:00 Resp 26 H 11/21/23 18:00 BP 127/70 11/21/23 18:00 Pulse Ox 94 11/21/23 17:30 O2 Del Method Heated High Flow 11/21/23 15:31 O2 Flow Rate 50 11/21/23 15:31 FiO2 60 11/21/23 15:31 11/21/23 11/21/23 11/21/23 06:59 14:59 22:59 Intake Total 50 / 780 50 / 50 50 / 100 Output Total 325 / 1275 550 / 550 350 / 900 Balance -275 / -495 -500 / -500 -300 / -800 Weight last 48 hrs Weight 97.477 kg Weight 98.43 kg Physical Exam Narrative: Sitting up in bed Const: COMMON NORMALS: patient oriented x3 and alert GENERAL APPEARANCE: cooperative ORIENTATION/CONSCIOUSNESS: Yes awake HENMT: COMMON NORMALS: oropharynx normal Neck/C-Spine: COMMON NORMALS: no JVD Resp: COMMON NORMALS: normal respiratory effort and clear to auscultation bilaterally AUSCULTATION: clear to auscultation bilaterally, rhonchi and wheezes Cardio: COMMON NORMALS: no JVD, regular rhythm, S1 normal heart sound present, S2 normal heart sound present and No murmurs present (Cardio) RHYTHM: regular rhythm HEART SOUNDS: S1 normal heart sound present and S2 normal heart sound present GI: COMMON NORMALS: Normal to inspection, nondistended, normoactive bowel sounds present, Soft to palpation and non-tender PALPATION: Yes Soft to palpation Extremity: COMMON NORMALS: no joint enlargement and no pedal edema NARRATIVE EXTREMITY EXAM: Severe left ankle tenderness. No redness, open wounds, fluctuance. OTHER: Examined other joints, no pain or swelling. Neuro: COMMON NORMALS: patient oriented x3 and moves all extremities SENSORIUM/ORIENTATION: Yes alert Skin: COMMON NORMALS: no rashes or lesions noted GENERAL SKIN EXAM: no rashes or lesions noted OTHER: Dressing of right lower extremity without strikethrough or bleeding. Urinary Catheter Management: Love: Cath Placed During This Visit: yes Reason for Continuing Indwelling Catheter: Accurate Measurement of Urinary Output in Critically Ill Patients Urinary Catheter Date of Insertion: 01/23/24 Urinary Catheter Time of Insertion: 06:18 Data 11/21/23 05:08 11/21/23 05:08 Micro: Microbiology 11/14/23 11:35 Anaerobic Culture - Final Leg - #1 11/20/23 16:12 Gram Stain - Final Ankle - Aspirate Wound Culture - Preliminary 11/19/23 03:53 Gram Stain - Final Sputum - Expectorated Sputum Sputum Culture - Final 11/18/23 21:13 Blood Culture - Preliminary Blood 11/18/23 21:01 Blood Culture - Preliminary Blood A&P Assessment and plan (1) Acute left ankle pain: Ankle arthroscopy and washout today for possible septic arthritis, with possible gouty arthritis.. Reviewed podiatry note. Follow-up cultures. Call if crystals. Continue IV antibiotics. Very tender left ankle noted on exam today. He states building up over about 2-3 days. No fluctuance, superficial wound or erythema. Or, very tender ankle. With recent necrotizing infection of right lower extremity, with strep and staph growing in the wound, persistent leukocytosis, tachycardia. Possible septic arthritis, discussed with him. Not a candidate for MRI. Not a safe candidate for contrast-enhanced CT with some worsening renal function, creatinine up to 2. Discussed with orthopedics on-call, radiology, obtain CT as per recommendation, discussed with podiatry, with concern for possible septic arthritis appreciate consultation, arthrocentesis, studies sent for cell count, culture, crystals. Noted 52,000 WBC. Uric acid requested, also noted elevated 12. Discussed with patient and his son, unfortunately suspicion still remains regarding septic arthritis given recent infection, persistent sirs. Discussed risk to the joint with septic arthritis, recommended treatment with joint washout. Discussed with pulmonology. Consideration of likely seizure versus intubation and mechanical ventilatory support depending on anesthesia assessment. In addition with suspicion of concomitant gout, pending crystals. He has no uric acid level very elevated at 12. Not a safe candidate for allopurinol at the moment with worsening renal function. Discussed with pharmacist. Requested rasburicase. Discussed with him. (2) Hypoxia: He is not using flutter valve. Coughing up phlegm slightly better. But still catching up in the upper airway. Tonsils with mild enlargement on exam. Continue pulmonary toilet, expectoration. With source control with infection left ankle per discussion with well surveying engineer though elevated risk, does require some steroids which we discussed with him may add depending on his further condition. Continue IV antibiotics. Inhaled steroids. Continue heated high flow cannula. Sputum culture reviewed, scant normal [place]. He requested trial of minimal sprite, thickened. Maintain aspiration precautions. Persistent hypoxia, on BiPAP overnight and this morning. Discussed with RT, switched over to heated high flow to allow for pulmonary toilet, expectoration. Continue empiric antibiotic coverage. Continue breathing treatments. Diminished air entry, wheezing. Would benefit from steroids, or, concern for septic arthritis currently as above. Discussed with case manager specialist. Additional treatment for left ankle as above. Consideration of steroid with source control. Discussed with him and his son, discussed risks. BiPAP support as needed but would prefer to maintain on heated high flow if possible. Continue meropenem, clindamycin. Levaquin. Continue chest vest, pulmonary toilet. Flutter valve. Continue oxygen support, BiPAP support as needed. Reviewed hemoglobin. VTE prophylaxis. (3) Necrotizing fasciitis due to Streptococcus pyogenes: Discussed with surgeon, wound was reassessed, he is doing well. As per surgery in case needed steroids given good healing of the wound in the right lower extremity steroids likely should be okay. Reviewed surgery note. No additional debridement at this time. Having some pain in his right leg, not a candidate for NSAIDs, reports rash from acetaminophen, history of hallucination with opioids, but states this was at least several decades ago, request to try small dose of. With monitoring. Continue IV antibiotics. Continue clindamycin for now. At risk of C. difficile with clindamycin. Monitor. Still noted elevated WBC. Noted 1 loose stool today. Monitor for C. difficile/persistent diarrhea. Reviewed C. difficile PCR, study had been sent 11/15, pending. C. difficile requested. Negative Continue wound reassessments. Discussed with case picker. (4) Sepsis: Persistent SIRS, possible persistent sepsis with possible septic arthritis as above. Continue empiric antibiotic coverage. No additional debridement today. Patient presents with sepsis presumably from his right lower extremity cellulitis Septic shock has resolved. Patient continues to have leukocytosis, severe anemia with borderline blood pressures and tachycardia. Maintain mean artery pressure over 65. Maintain saturation over 90%. Strict input output charting, daily weights. (5) Cellulitis: Patient with evidence of right lower extremity cellulitis. Post debridement. Follow-up blood culture, wound culture. Wound culture growing group A strep. Given concerns for deep extensive tissue infection requiring deep debridement for now we will add clindamycin. MRSA swab negative so vancomycin was discontinued. Continue with meropenem. Wound care as per surgical team. Out of bed to chair. Patient has persistent leukocytosis. Mild trending down since debridement but not as much as expected. Will need to continue to monitor the wound to make sure he does not require further debridement. Recheck stool for C. difficile (6) Status post excisional debridement: (7) Anemia associated with acute blood loss: This is secondary to upper GI bleed. Appreciate surgical recommendations. Post endoscopy. 11/12 showed gastric ulcers. Hemoglobin down to 7.1 today. Transfuse 2 unit of PRBC keeping hemoglobin over 8. Continue with Protonix twice daily. Add Carafate before meals and at bedtime. Hold off on anticoagulation. Till now patient has received 2 units of blood transfusion and 1 unit of FFP. (8) ALTA (acute kidney injury): Reviewed renal function. Slight improvement. Stop albumin. Strict improper charting, daily weights. Monitor BMP in evening. Love in place. Hypernatremia improved. (9) Pulmonary emphysema: (10) COPD (chronic obstructive pulmonary disease): Qualifiers: COPD type: unspecified COPD Qualified Code(s): J44.9 - Chronic obstructive pulmonary disease, unspecified (11) LBBB (left bundle branch block): Had nonsustained V. tach episode. EKG on admission did not show LBBB but today morning EKG shows LBBB. Can be intermittent LBBB in setting of demand ischemia but cannot rule out ACS given new LBBB for now. Recheck troponins, check echocardiogram. Metoprolol. (12) NSVT (nonsustained ventricular tachycardia): (13) Hypothermia: Resolved (14) Hypotension: Resolved. Now off norepinephrine and albumin (15) Hyperkalemia: Resolved (16) Acute encephalopathy: Seems to be improving. Patient is out of bed to chair. Continue to monitor. Precedex if needed. Otherwise can add Xanax 0.25 mg nightly as needed. (17) Alkaline phosphatase elevation: New elevation of alk phos up to 190. Known cholelithiasis. Requested gallbladde. ultrasound. Plan CODE STATUS: Son will be the DPOA. Patient would want to remain full code for now. But does not want to remain on life support for long. PUD prophylaxis: Full dose Protonix twice daily DVT prophylaxis: SCDs. Hold off on medical prophylaxis given GI bleed Continue with care at ICU level This documentation was created by [employer] pre owned sales consultant software. Every effort was made to ensure accuracy of pre owned sales consultant. Any obvious errors or omissions should be clarified with the author of the document. Attestations Medical Necessity Statement*: Continue admission for assessment management of possible septic arthritis, respiratory failure, necrotizing right leg infection. Coding Level of Care Code Critical Care >/= 30 minutes Critical care time (in minutes): 35 The high probability of a clinically significant, sudden or life threatening deterioration, as referenced in this documentation, required my full and direct attention, intervention and personal management. The critical care time shown is in addition to time spent performing any reported separately billable procedures and includes the following: [x] Data and vital sign review and interpretation [x] Patient assessment, examination and intervention [x] Medication orders and management [x] Patient/Family updates as able [x] Care Coordination and Documentation. Diagnoses Acute left ankle pain M25.572 Hypoxia R09.02 Necrotizing fasciitis due to Streptococcus pyogenes M72.6; B95.0 Sepsis A41.9 Cellulitis L03.90 Status post excisional debridement Z98.890 Anemia associated with acute blood loss D62 ALTA (acute kidney injury) N17.9 Pulmonary emphysema J43.9 Chronic obstructive pulmonary disease, unspecified COPD type J44.9 COPD type: unspecified COPD LBBB (left bundle branch block) I44.7 NSVT (nonsustained ventricular tachycardia) I47.29 Hypothermia T68.XXXA Hypotension I95.9 Hyperkalemia E87.5 Acute encephalopathy G93.40 Alkaline phosphatase elevation R74.8
[2023-11-21 19:49] LABS: Glucose-6-Phosphate Dehydrogen 31.4 U/g Hgb (7.0-20.5)
[2023-11-21] MEDS: trazodone 50 mg Tablet 25 MG PO (20:05)
[2023-11-21] MEDS: heparin 5,000 unit/mL INJ 1 mL 5000 UNIT SUBCUT (20:18)
[2023-11-22] VITALS (67 sets, daily range): BP systolic 118–150; BP diastolic 59–89; PULSE 79–109; RESP 15–31; TEMP 36.8–37.1; O2SAT 70–98; BMI 33.9
[2023-11-22] MEDS: levalbuterol 0.63 mg/3 mL Neb INHALATION ×7 (00:08→23:46)
[2023-11-22] MEDS: ipratropium 0.5 mg/2.5 mL Neb INHALATION ×7 (00:08→23:46)
--- NOTE | 2023-11-22 00:21 | PC.NURSE ---
Patient has been given 2 doses of dilaudid due to pain in the legs. Paitient vitals WNL
[2023-11-22] MEDS: HYDROmorphone 1 mg/mL INJ 1 mL 0.4 MG IVP ×4 (01:48→13:17)
--- NOTE | 2023-11-22 03:40 | PC.NURSE ---
Patient continues to be non compliant with NPO status. Gave patient mouth swabs with water, along with water to take his medication and patient drank 240mls
[2023-11-22 04:24] LABS: Basophils # 0.1 10^3/uL (0.0-0.1); Basophils % 0.4 %; Eosinophils # 0.1 10^3/uL (0.0-0.8); Eosinophils % 0.3 %; Hematocrit 28.3 % (37-53); Lymphocytes # 0.7 10^3/uL (0.8-4.8); Lymphocytes % 3.8 %; Mean Corpuscular Hemoglobin 27.6 pg (27-33); Mean Corpuscular Volume 95.3 fl (82-101); Mean Platelet Volume 11.2 fL (7.4-10.4); Monocytes # 1.1 10^3/uL (0.2-0.9); Monocytes % 6.4 %; Neutrophils # 15.43 10^3/uL (1.8-7.7); Neutrophils % 88.6 %; Nucleated Red Blood Cells % 0 %; Platelet Count 521 10^3/cmm (157-399); Red Blood Count 2.97 10^6/uL (3.85-5.65); Red Cell Distribution Width 18.7 % (12.1-15.1); White Blood Count 17.42 10^3/uL (3.29-11.43)
[2023-11-22 04:45] LABS: Alanine Aminotransferase 12 U/L (0-41); Albumin Level 3.2 g/dL (3.5-5.2); Alkaline Phosphatase 78 U/L (40-130); Anion Gap 13.8 (5-19); Aspartate Amino Transferase 17 U/L (0-40); Blood Urea Nitrogen 41 mg/dL (8-23); Calcium 8.7 mg/dL (8.5-10.5); Carbon Dioxide 28 mmol/L (22-29); Chloride 112 mmol/L (98-107); Globulin 4.2 g/dL (1.3-4.6); Glomerular Filtration Rate 37.9 mL/min (90-130); Glucose 108 mg/dL (65-115); Osmolality Calculated 321 mOsm/kg (285-295); Potassium 3.8 mmol/L (3.5-5.1); Sodium 150 mmol/L (136-145); Total Bilirubin 0.3 mg/dL (0.15-1.2); Total Protein 7.4 g/dL (6.6-8.7)
[2023-11-22] MEDS: clindamycin 900 MG/50 ML PREMIX 100 MG IV ×3 (06:27→21:11)
[2023-11-22] MEDS: metoprolol tartrate 25 mg Tablet PO ×2 (06:27→17:31)
[2023-11-22] MEDS: sucralfate 1 gm Tablet PO ×4 (06:27→20:26)
[2023-11-22] MEDS: pantoprazole 40 mg SDV IVP ×2 (06:27→17:32)
[2023-11-22] MEDS: budesonide 0.5 mg/2 mL Neb INHALATION ×2 (07:32→20:06)
[2023-11-22] MEDS: nystatin 100,000 unit/mL UDC 5 mL 100000 UNIT PO ×4 (08:27→20:25)
[2023-11-22] MEDS: multivitamin therapeutic Tablet 1 TAB PO (08:27)
[2023-11-22] MEDS: heparin 5,000 unit/mL INJ 1 mL 5000 UNIT SUBCUT ×2 (08:27→20:27)
[2023-11-22] MEDS: meropenem 1,000 MG in sodium chloride 0.9% (plus) 50 ML 100 MG IV (08:27)
[2023-11-22] MEDS: lidocaine 5% Patch 1 PATCH TOPICAL ×2 (08:28→20:35)
--- NOTE | 2023-11-22 09:56 | XRR_ITS ---
PROCEDURE INFORMATION: Exam: XR Chest Exam date and time: 11/22/2023 1:14 PM Age: 67 years old Clinical indication: Smoker's cough; Patient HX: Syncope; Fall; Followup respiratory distress; Productive cough; Lung crackles; Necrotizing fasciaitis of lower extremeties TECHNIQUE: Imaging protocol: Radiologic exam of the chest. Views: 1 view. COMPARISON: CR (CHEST, ) 11/18/2023 3:45 AM FINDINGS: Tubes, catheters and devices: A right-sided central line has its tip in good position within the right atrium. Lungs: There are stable patchy infiltrates with atelectasis involving both lung bases. Pleural spaces: Unremarkable. No pleural effusion. No pneumothorax. Heart/Mediastinum: Unremarkable. No cardiomegaly. Bones/joints: Unremarkable. XR/XR chest 1V portable [id number] IMPRESSION: Stable bibasilar infiltrates
[2023-11-22] MEDS: methylPREDNISolone sod succ 40 mg/mL INJ 30 MG IVP ×2 (10:06→17:32)
[2023-11-22] MEDS: dextrose 5 % 500 ML 25 ML IV (10:22)
--- NOTE | 2023-11-22 14:01 | CTR_ITS ---
PROCEDURE INFORMATION: Exam: CT Neck With Contrast Exam date and time: 11/22/2023 4:42 PM Age: 67 years old Clinical indication: Other: Dysphagia, aspiration, enlarged tonsils, assess for any soft tissue swelling, masses TECHNIQUE: Imaging protocol: Computed tomography of the neck with contrast. Radiation optimization: All CT scans at this facility use at least one of these dose optimization techniques: automated exposure control; mA and/or kV adjustment per patient size (includes targeted exams where dose is matched to clinical indication); or iterative reconstruction. Contrast material: OMNI 350; Contrast volume: 75 ml; Contrast route: INTRAVENOUS (IV); COMPARISON: CT chest wo con [id number] 11/15/2023 1:06 PM RADIATION DOSE METRICS: Total DLP (mGy-cm): 293.84 FINDINGS: Pharynx: Unremarkable. No significant tonsillar enlargement. Larynx: Unremarkable. Epiglottis is normal. Prevertebral and retropharyngeal spaces: Unremarkable. Salivary glands: Normal. Glands are normal in size. Thyroid: Normal. No enlarged or calcified nodules. Lymph nodes: Unremarkable. No lymphadenopathy. Trachea: Visualized trachea is unremarkable. Lungs: Unremarkable as visualized. Pleural spaces: Bilateral pleural effusions are noted. Bones/joints: Unremarkable. No acute fracture. Soft tissues: Unremarkable. No significant soft tissue swelling. CT/CT neck w con* [id number] IMPRESSION: Normal CT neck Bilateral pleural effusions
[2023-11-22] MEDS: iohexol 350 mg/mL 500 mL Btl (per mL) IV (16:46)
[2023-11-22] MEDS: levofloxacin-dextrose 5 % 750 MG/150 ML PREMIX 100 MG IV (19:38)
[2023-11-22] MEDS: trazodone 50 mg Tablet 25 MG PO (20:25)
[2023-11-22] MEDS: MEROPENEM IV (20:37)
[2023-11-22] MEDS: DEXTROSE 5% IV (20:37)
[2023-11-22] MEDS: dexmedeTOMIDine 0.9 % NaCL 400 MCG/100 ML PREMIX IV (22:48)
[2023-11-22] MEDS: LORazepam 2 mg/mL INJ 10 mL MDV 0.5 MG IVP (22:58)
--- NOTE | 2023-11-22 23:19 | PC.NURSE ---
patient became agitated, requested anxiety medication, contacted Dr Oconnell for order for ativan X1 and to restart precedex
--- NOTE | 2023-11-22 23:30 | P.PN_ITS ---
Subjective 2 Subjective: Skin changes, is doing about the same. Would like to move around. He is looking forward to working with physical therapy. Vitals/I&O/Wt Last Vital Signs Temp 98.2 F 11/22/23 19:43 Pulse 89 11/22/23 22:00 Resp 20 H 11/22/23 22:00 BP 134/77 11/22/23 22:00 Pulse Ox 95 11/22/23 22:00 O2 Del Method High Flow Nasal Cannula 11/22/23 22:00 O2 Flow Rate 12 11/22/23 22:00 FiO2 45 11/22/23 08:00 11/22/23 11/22/23 11/23/23 14:59 22:59 06:59 Intake Total 50 / 50 300 / 350 Output Total 350 / 350 1100 / 1450 Balance -300 / -300 -800 / -1100 Weight last 48 hrs Weight 98.203 kg Weight 97.477 kg Physical Exam 2 Narrative: Sitting up in bed Const: COMMON NORMALS: patient oriented x3 and alert GENERAL APPEARANCE: c ooperative ORIENTATION/CONSCIOUSNESS: Yes awake HENMT: COMMON NORMALS: oropharynx normal Neck/C-Spine: COMMON NORMALS: no JVD Resp: COMMON NORMALS: normal respiratory effort AUSCULTATION: rhonchi and no wheezes Cardio: COMMON NORMALS: no JVD, regular rhythm, S1 normal heart sound present, S2 normal heart sound present and No murmurs present (Cardio) RHYTHM: regular rhythm HEART SOUNDS: S1 normal heart sound present and S2 normal heart sound present GI: COMMON NORMALS: Normal to inspection, nondistended, normoactive bowel sounds present, Soft to palpation and non-tender PALPATION: Yes Soft to palpation Extremity: COMMON NORMALS: no joint enlargement and no pedal edema N ARRATIVE EXTREMITY EXAM: Severe left ankle tenderness. No redness, open wounds, fluctuance. OTHER: Examined other joints, no pain or swelling. Neuro: COMMON NORMALS: patient oriented x3 and moves all extremities S ENSORIUM/ORIENTATION: Yes alert Skin: COMMON NORMALS: no rashes or lesions noted GENERAL SKIN EXAM: no rashes or lesions noted OTHER: Dressing of right lower extremity without strikethrough or bleeding. Clean dressing over the left ankle. Trace edema. Urinary Catheter Management: Love: Cath Placed During This Visit: yes Reason for Continuing Indwelling Catheter: Accurate Measurement of Urinary Output in Critically Ill Patients Urinary Catheter Date of Insertion: 11/11/23 Urinary Catheter Time of Insertion: 06:18 Data 11/22/23 04:07 11/22/23 04:07 Micro: Microbiology 11/20/23 16:12 Gram Stain - Final Ankle - Aspirate Wound Culture - Preliminary A&P Assessment and plan (1) Acute left ankle pain: Reviewed left ankle cultures, so far no growth, although he had been on antibiotics and so as expected cultures may be unreliable. Reviewed crystals, pending, have been sent to pathology. Continue with IV antibiotics. Reviewed podiatry note. He reports pain in the left ankle with improvement. Ankle arthroscopy and washout today for possible septic arthritis, with possible gouty arthritis.. Reviewed podiatry note. Follow-up cultures. Call if crystals. Continue IV antibiotics. Very tender left ankle noted on exam today. He states building up over about 2- 3 days. No fluctuance, superficial wound or erythema. Or, very tender ankle. With recent necrotizing infection of right lower extremity, with strep and staph growing in the wound, persistent leukocytosis, tachycardia. Possible septic arthritis, discussed with him. Not a candidate for MRI. Not a safe candidate for contrast-enhanced CT with some worsening renal function, creatinine up to 2. Discussed with orthopedics on-call, radiology, obtain CT as per recommendation, discussed with podiatry, with concern for possible septic arthritis appreciate consultation, arthrocentesis, studies sent for cell count, culture, crystals. Noted 52,000 WBC. Uric acid requested, also noted elevated 12. Discussed with patient and his son, unfortunately suspicion still remains regarding septic arthritis given recent infection, persistent sirs. Discussed risk to the joint with septic arthritis, recommended treatment with joint washout. Discussed with pulmonology. Consideration of likely seizure versus intubation and mechanical ventilatory support depending on anesthesia assessment. In addition with suspicion of concomitant gout, pending crystals. He has no uric acid level very elevated at 12. Not a safe candidate for allopurinol at the moment with worsening renal function. Discussed with pharmacist. Requested rasburicase. Discussed with him. (2) Hypoxia: With source control at the left ankle, continued IV antibiotics, continued respiratory failure with COPD with exacerbation, rhonchi, diminished air entry, as per discussion of possible risks with steroid, started on Solu-Medrol. Chest x-ray repeated, unchanged on review. Continue n.p.o. for now as appears may have had some aspiration with water from the moistening sponge. Requested CT neck for additional assessment of structure abnormality, reviewed, normal. Continue IV antibiotics. Discussed with respiratory therapy, he had been switched to high flow cannula with humidification, consider heated high flow depending on condition given quite a bit of secretions to assist easier expectoration with with humidification and warming. Leukocytosis with good improvement. Tachycardia resolved. Consideration of PE, but less likely without tachycardia, maintaining blood pressure, echocardiogram with normal RV function. Continue prophylactic heparin. Consideration of anticoagulation empirically until able to assess CTA versus VQ scan in case of worsening and/or if can be started more safely RE some hemorrhagic synovitis in the left ankle and UGIB. He is using flutter valve. Coughing up phlegm slightly better. But still catching up in the upper airway. Tonsils with mild enlargement on exam. ENT will be available on Friday, consider consultation for additional assessment of hypopharynx with concern for recurrent aspiration, some tonsillar enlargement, wartlike lesions noted on the tongue. Continue pulmonary toilet, expectoration. With source control with infection left ankle per discussion with detective chief though elevated risk, does require some steroids which we discussed with him may add depending on his further condition. Continue IV antibiotics. Inhaled steroids. Continue heated high flow cannula. Sputum culture reviewed, scant normal [place]. He requested trial of minimal sprite, thickened. Maintain aspiration precautions. Persistent hypoxia, on BiPAP overnight and this morning. Discussed with RT, switched over to heated high flow to allow for pulmonary toilet, expectoration. Continue empiric antibiotic coverage. Continue breathing treatments. Diminished air entry, wheezing. Would benefit from steroids, or, concern for septic arthritis currently as above. Discussed with commercial attache. Additional treatment for left ankle as above. Consideration of steroid with source control. Discussed with him and his son, discussed risks. BiPAP support as needed but would prefer to maintain on heated high flow if possible. Continue meropenem, clindamycin. Levaquin. Continue chest vest, pulmonary toilet. Flutter valve. Continue oxygen support, BiPAP support as needed. Reviewed hemoglobin. VTE prophylaxis. (3) Necrotizing fasciitis due to Streptococcus pyogenes: Reviewed surgery note, has been doing well. As per surgery in case needed steroids given good healing of the wound in the right lower extremity steroids likely should be okay. Reviewed surgery note. No additional debridement at this time. Having some pain in his right leg, not a candidate for NSAIDs, reports rash from acetaminophen, history of hallucination with opioids, but states this was at least several decades ago, request to try small dose of. With monitoring. Continue IV antibiotics. Continue clindamycin for now. At risk of C. difficile with clindamycin. Monitor. Improving WBC. C. difficile Negative Continue wound reassessments. Discussed with top case assembler. (4) Sepsis: Persistent SIRS, possible persistent sepsis with possible septic arthritis as above. Continue empiric antibiotic coverage. No additional debridement today. Patient presents with sepsis presumably from his right lower extremity cellulitis Septic shock has resolved. Patient continues to have leukocytosis, severe anemia with borderline blood pressures and tachycardia. Maintain mean artery pressure over 65. Maintain saturation over 90%. Strict input output charting, daily weights. (5) Cellulitis: Patient with evidence of right lower extremity cellulitis. Post debridement. Follow-up blood culture, wound culture. Wound culture growing group A strep. Given concerns for deep extensive tissue infection requiring deep debridement for now we will add clindamycin. MRSA swab negative so vancomycin was discontinued. Continue with meropenem. Wound care as per surgical team. Out of bed to chair. Patient has persistent leukocytosis. Mild trending down since debridement but not as much as expected. Will need to continue to monitor the wound to make sure he does not require further debridement. Recheck stool for C. difficile (6) Status post excisional debridement: (7) Anemia associated with acute blood loss: This is secondary to upper GI bleed. Appreciate surgical recommendations. Post endoscopy. 11/12 showed gastric ulcers. Hemoglobin down to 7.1 today. Transfuse 2 unit of PRBC keeping hemoglobin over 8. Continue with Protonix twice daily. Add Carafate before meals and at bedtime. Hold off on anticoagulation. Till now patient has received 2 units of blood transfusion and 1 unit of FFP. (8) ALTA (acute kidney injury): Reviewed renal function. Slight improvement. Stop albumin. Strict improper charting, daily weights. Monitor BMP in evening. Love in place. Hypernatremia improved. (9) Pulmonary emphysema: (10) COPD (chronic obstructive pulmonary disease): Qualifiers: COPD type: unspecified COPD Qualified Code(s): J44.9 - Chronic obstructive pulmonary disease, unspecified (11) LBBB (left bundle branch block): Had nonsustained V. tach episode. EKG on admission did not show LBBB but today morning EKG shows LBBB. Can be intermittent LBBB in setting of demand ischemia but cannot rule out ACS given new LBBB for now. Recheck troponins, check echocardiogram. Metoprolol. (12) NSVT (nonsustained ventricular tachycardia): (13) Hypothermia: Resolved (14) Hypotension: Resolved. Now off norepinephrine and albumin (15) Hyperkalemia: Resolved (16) Acute encephalopathy: Seems to be improving. Patient is out of bed to chair. Continue to monitor. Precedex if needed. Otherwise can add Xanax 0.25 mg nightly as needed. (17) Alkaline phosphatase elevation: Alk phos now normalized, possibly secondary to problem with the left ankle. Known cholelithiasis. Cholelithiasis but otherwise unremarkable gallbladder. ultrasound. Finding of moderately enlarged liver, hepatic steatosis. Plan CODE STATUS: Son will be the DPOA. Patient would want to remain full code for now. But does not want to remain on life support for long. PUD prophylaxis: Full dose Protonix twice daily DVT prophylaxis: SCDs. Hold off on medical prophylaxis given GI bleed Continue with care at ICU level This documentation was created by [email or web address] red mud thickener operator software. Every effort was made to ensure accuracy of red mud thickener operator. Any obvious errors or omissions should be clarified with the author of the document. Attestations 2 Medical Necessity Statement*: Continue admission for assessment management of possible septic arthritis, respiratory failure, necrotizing right leg infection. Coding Level of Care Code Critical Care >/= 30 minutes Critical care time (in minutes): 40 The high probability of a clinically significant, sudden or life threatening deterioration, as referenced in this documentation, required my full and direct attention, intervention and personal management. The critical care time shown is in addition to time spent performing any reported separately billable procedures and includes the following: [x] Data and vital sign review and interpretation [x ] Patient assessment, examination and intervention [x] Medication orders and management [x] Patient/Family updates as able [x] Care Coordination and Documentation. Diagnoses Acute left ankle pain M25.572 Hypoxia R09.02 Necrotizing fasciitis due to Streptococcus pyogenes M72.6; B95.0 Sepsis A41.9 Cellulitis L03.90 Status post excisional debridement Z98.890 Anemia associated with acute blood loss D62 ALTA (acute kidney injury) N17.9 Pulmonary emphysema J43.9 Chronic obstructive pulmonary disease, unspecified COPD type J44.9 COPD type: unspecified COPD LBBB (left bundle branch block) I44.7 NSVT (nonsustained ventricular tachycardia) I47.29 Hypothermia T68.XXXA Hypotension I95.9 Hyperkalemia E87.5 Acute encephalopathy G93.40 Alkaline phosphatase elevation R74.8
[2023-11-23] VITALS (67 sets, daily range): BP systolic 95–148; BP diastolic 58–98; PULSE 54–110; RESP 14–35; TEMP 36.3–37.1; O2SAT 87–98
--- NOTE | 2023-11-23 00:44 | PC.NURSE ---
patient had 23 beat vtach run, notified Dr Oconnell, bmp, mag, troponin serier ordered
[2023-11-23 01:14] LABS: Troponin(5th) Baseline 33 ng/L (0-15)
[2023-11-23 01:21] LABS: Anion Gap 12.8 (5-19); Blood Urea Nitrogen 44 mg/dL (8-23); Calcium 8.9 mg/dL (8.5-10.5); Carbon Dioxide 29 mmol/L (22-29); Chloride 112 mmol/L (98-107); Glomerular Filtration Rate 46.8 mL/min (90-130); Glucose 150 mg/dL (65-115); Magnesium 2.4 mg/dL (1.7-2.3); Osmolality Calculated 324 mOsm/kg (285-295); Potassium 3.8 mmol/L (3.5-5.1); Sodium 150 mmol/L (136-145)
[2023-11-23] MEDS: methylPREDNISolone sod succ 40 mg/mL INJ 30 MG IVP ×3 (01:56→17:55)
[2023-11-23 03:02] LABS: Basophils % 0.1 %; Hematocrit 27.4 % (37-53); Lymphocytes # 0.4 10^3/uL (0.8-4.8); Lymphocytes % 2.7 %; Mean Corpuscular HGB Conc 28.8 g/dL (30-55); Mean Corpuscular Hemoglobin 27.8 pg (27-33); Mean Corpuscular Volume 96.5 fl (82-101); Mean Platelet Volume 10.8 fL (7.4-10.4); Monocytes # 0.2 10^3/uL (0.2-0.9); Monocytes % 1.6 %; Neutrophils # 13.48 10^3/uL (1.8-7.7); Nucleated Red Blood Cells % 0 %; Platelet Count 418 10^3/cmm (157-399); Red Blood Count 2.84 10^6/uL (3.85-5.65); Red Cell Distribution Width 18.4 % (12.1-15.1)
[2023-11-23 03:26] LABS: Troponin 5 2HR 37.22 ng/L (0-15); Troponin 5 2HR Delta 4.22 ABS# (0-10)
[2023-11-23 03:32] LABS: Alanine Aminotransferase 11 U/L (0-41); Alkaline Phosphatase 71 U/L (40-130); Anion Gap 10.9 (5-19); Aspartate Amino Transferase 13 U/L (0-40); Blood Urea Nitrogen 43 mg/dL (8-23); Calcium 8.8 mg/dL (8.5-10.5); Carbon Dioxide 30 mmol/L (22-29); Chloride 113 mmol/L (98-107); Globulin 4.2 g/dL (1.3-4.6); Glomerular Filtration Rate 46.8 mL/min (90-130); Glucose 159 mg/dL (65-115); Osmolality Calculated 324 mOsm/kg (285-295); Potassium 3.9 mmol/L (3.5-5.1); Sodium 150 mmol/L (136-145); Total Bilirubin 0.2 mg/dL (0.15-1.2); Total Protein 7.2 g/dL (6.6-8.7)
[2023-11-23] MEDS: levalbuterol 0.63 mg/3 mL Neb INHALATION ×6 (03:39→23:58)
[2023-11-23] MEDS: ipratropium 0.5 mg/2.5 mL Neb INHALATION ×6 (03:39→23:58)
[2023-11-23] MEDS: dextrose 5 % 500 ML 25 ML IV (05:36)
[2023-11-23] MEDS: clindamycin 900 MG/50 ML PREMIX 100 MG IV ×3 (05:37→22:16)
[2023-11-23] MEDS: pantoprazole 40 mg SDV IVP ×2 (05:37→17:55)
[2023-11-23] MEDS: metoprolol tartrate 25 mg Tablet PO ×2 (05:42→17:55)
[2023-11-23] MEDS: sucralfate 1 gm Tablet PO ×2 (05:42→20:14)
[2023-11-23] MEDS: budesonide 0.5 mg/2 mL Neb INHALATION ×2 (07:57→20:15)
[2023-11-23 08:16] LABS: Troponin 5 6HR 30.22 ng/L (0-15); Troponin 5 6HR Delta -2.78 ng/L (0-12)
[2023-11-23] MEDS: MEROPENEM IV ×2 (08:41→20:13)
[2023-11-23] MEDS: DEXTROSE 5% IV ×2 (08:41→20:13)
[2023-11-23] MEDS: nystatin 100,000 unit/mL UDC 5 mL 100000 UNIT PO ×4 (08:41→20:13)
[2023-11-23] MEDS: heparin 5,000 unit/mL INJ 1 mL 5000 UNIT SUBCUT ×2 (08:42→20:12)
[2023-11-23] MEDS: lidocaine 5% Patch 1 PATCH TOPICAL ×2 (08:42→20:13)
--- NOTE | 2023-11-23 08:54 | P.PN_ITS ---
Subjective 2 Subjective: Patient seen bedside, status post left ankle scope, reports decreased pain at the left ankle. Vitals/I&O/Wt Last Vital Signs Temp 97.4 F L 11/23/23 08:30 Pulse 81 11/23/23 08:30 Resp 31 H 11/23/23 08:30 BP 129/65 11/23/23 08:00 Pulse Ox 97 11/23/23 08:30 O2 Del Method Nasal Cannula 11/23/23 07:52 O2 Flow Rate 12 11/23/23 07:52 FiO2 40 11/22/23 23:49 11/22/23 11/23/23 11/23/23 22:59 06:59 14:59 Intake Total 300 / 350 573.325 / 923.325 Output Total 1100 / 1450 450 / 1900 Balance -800 / -1100 123.325 / -976.675 Weight last 48 hrs Weight 227 lb Weight 216 lb 8 oz Physical Exam 2 Narrative: GENERAL: Patient is alert and oriented ?3 and in no acute distress. The following is a focused left lower extremity exam. VASCULAR: Dorsalis pedis palpable, left. Left posterior tibial artery palpable. Capillary refill time less than 3 seconds to the distal hallux bilaterally. Calf is supple and nontender proximally and distally. NEUROLOGICAL: Protective sensation intact to light touch. No increased edema at the left ankle. DERMATOLOGICAL: Ankle portal x 2 left anterior ankle demonstrates intact suture without dehiscence or. Incision warmth, erythema or crepitus at left ankle. Excoriation at the distal one third lateral leg, left without erythema, warmth or drainage. MUSCULOSKELETAL: Exquisite tenderness to palpation globally at left ankle. Able to wiggle left toes on command. Muscle strength +5 in all 3 planes with pain and guarding at left ankle. No crepitus on palpation of left ankle soft tissue circumferentially. Urinary Catheter Management: Love: Cath Placed During This Visit: yes Reason for Continuing Indwelling Catheter: Accurate Measurement of Urinary Output in Critically Ill Patients Urinary Catheter Date of Insertion: 11/11/23 Urinary Catheter Time of Insertion: 06:18 Data 11/28/23 07:07 11/28/23 07:07 Micro: Microbiology 11/20/23 16:12 Gram Stain - Final Ankle - Aspirate Wound Culture - Preliminary A&P Assessment and plan (1) Acute left ankle pain: Plan Acute left ankle pain, concern for gout versus septic joint. X-ray and CT scan negative for acute fracture or dislocation, negative for soft tissue edema. Clinically there is no edema and no warmth or erythema at the left ankle. He has exquisite tenderness to palpation at the left ankle. After obtaining verbal and written consent a timeout was performed. The left anterior ankle was palpated and the medial gutter was identified. Chlorhexidine scrub was performed followed by arthrocentesis of the left ankle joint harvesting 5 cc of joint fluid. Poor appearance of synovial fluid had decreased viscosity and had purulent off yellow appearance. Joint fluid left ankle sent to microbiology for the following: Culture with Gram stain Fluid analysis for monosodium urate crystals WBC Glucose Pathology report significant for consistent with gout. Monosodium urate crystals Weightbearing as tolerated. Follow-up in podiatry clinic for suture removal left ankle within 14 days of discharge. Attestations 2 Medical Necessity Statement*: Left ankle pain Coding Level of Care Code Acute Code for [facility] Diagnoses Acute left ankle pain M25.572
--- NOTE | 2023-11-23 10:37 | P.PN_ITS ---
Subjective 2 Subjective: 67-year-old male who is known to me for GI bleeding due to multiple ulcerations in the stomach as well as right lower extremity necrotizing infection requiring surgical debridement. Patient has been improving significantly over the last 2 to 3 days, white count has improved and now is sitting around 14,000. He does not have any significant complaints other than some shortness of breath. Patient underwent arthroscopy and debridement of the left ankle joint on Friday due to possibility of septic arthritis. From the general surgery standpoint he is right leg has received wet-to-dry dressings daily and is significantly improving. Vitals/I&O/Wt Last Vital Signs Temp 97.4 F L 11/23/23 08:30 Pulse 92 11/23/23 10:23 Resp 31 H 11/23/23 08:30 BP 129/65 11/23/23 08:00 Pulse Ox 96 11/23/23 10:23 O2 Del Method Nasal Cannula 11/23/23 07:52 O2 Flow Rate 12 11/23/23 07:52 FiO2 40 11/23/23 10:23 11/22/23 11/23/23 11/23/23 22:59 06:59 14:59 Intake Total 300 / 350 573.325 / 923.325 50 / 50 Output Total 1100 / 1450 450 / 1900 Balance -800 / -1100 123.325 / -976.675 50 / 50 Weight last 48 hrs Weight 227 lb Weight 216 lb 8 oz Physical Exam 2 GI: OTHER: Abdomen is distended, nontender, normal bowel sounds Extremity: OTHER: Right lower extremity wound was evaluated, appears to be significantly improved, there is very good vascularity on the wound bed now, minimal slough on the edges, the wound has started to granulate. Urinary Catheter Management: Love: Cath Placed During This Visit: yes Reason for Continuing Indwelling Catheter: Accurate Measurement of Urinary Output in Critically Ill Patients Urinary Catheter Date of Insertion: 11/11/23 Urinary Catheter Time of Insertion: 06:18 Data 11/23/23 02:50 11/23/23 02:50 Micro: Microbiology 11/20/23 16:12 Gram Stain - Final Ankle - Aspirate Wound Culture - Preliminary A&P Assessment and plan (1) Gastric ulcer: (2) Necrotizing fasciitis due to Streptococcus pyogenes: Plan After complete history and review of all available clinical data the following is my assessment for today. Patient is showing significant improvement from the general surgery standpoint, right a lower extremity wound appears to be granulating and with minimal slough in the edges. The plan is to continue wet-to-dry dressings once or twice a days as needed, once the patient is a stable he can be referred for a wound care clinic as outpatient for subsequent wound care and possibility of hyperbaric oxygen therapy. Once the wound has completely granulated we will proceed with a skin graft creation. No additional surgical intervention is indicated at this time. I will see the patient around 2 weeks after he gets discharge for the possibility of a repeat upper endoscopy to ensure resolution of ulcerations in the stomach Attestations 2 Medical Necessity Statement*: Per medical team Coding Level of Care Code Acute Code for [facility] Diagnoses Gastric ulcer K25.9 Necrotizing fasciitis due to Streptococcus pyogenes M72.6; B95.0
[2023-11-23] MEDS: HYDROmorphone 1 mg/mL INJ 1 mL 0.4 MG IVP ×3 (11:05→23:34)
--- NOTE | 2023-11-23 12:04 | P.CONIM_ITS ---
Providers/Reason For Consult 2 Consulting Physician/Specialty*: Rafael Mcpherson MD/pulmonary critical care Reason for Consult*: Respiratory distress requiring high flow oxygen in patient with underlying sepsis Requesting Physician: Ochoa Oliver Attending Physician: Ochoa Oliver Primary Care Provider: Jason Harper DO History of Present Illness History of Present Illness Peter Herrmann is a 67 year old male with significant past medical history of class III CHF, COPD, hypertension-admitted to hospital for confusion on 11/11/2023. Upon evaluation patient found to be in septic shock for which he required pressors for few days; he had necrotizing fasciitis due to strep pyogenes for which she underwent extensive debridement on 11/14/2023; urine cultures growing E. coli, left ankle abscess irrigation and debridement on 11/21/2023 for possible septic arthritis. Prior to admission patient was started on Bactrim for right lower extremity cellulitis. He was started on initially vancomycin, Zosyn but later due to worsening leukocytosis Zosyn was discontinued and started meropenem. Once he started having worsening cellulitis prior to debridement-wound cultures grew strep pyogenes and Staph aureus-vancomycin switched to clindamycin. Patient leukocytosis started trending down and he is tachycardia resolved. Patient came off pressors. For melena patient underwent EGD 11/12/2023- No active bleeding was noted. There was erosive gastritis, esophagitis and there was multiple ulcers at the level of the antrum. Likely cause is naproxen use. Biopsies were taken from edge of multiple ulcers. 2 days later patient complained of abdominal pain-CT abdomen pelvis showed possible early pancreatitis and no evidence of perforation or free air. Due to multiple ulcers-he is anticoagulation has been held Patient had extensive smoking history; he is in respiratory distress and wheezing-started on scheduled nebulizations, he is on BiPAP/heated high flow. Prednisone was not started until yesterday due to multiple ulcers and a septic arthritis there is a concern for aspiration pneumonitis. Patient is also on chest vest 3 times daily, flutter valve. Patient had a CT chest 11/15/2023 which showed significant emphysematous changes. Trace bibasilar pleural effusions. However patient had a CT neck 11/22/2023 for dysphagia, enlarged tonsils-which reported bilateral pleural effusions. Chest x-ray today showed stable bibasilar infiltrates with no significant pleural effusion.Echocardiogram earlier admission showed normal LV size systolic function. He has high BNP. Patient had ALTA on CKD. Is making good urine daily however he is net +1 L. Pulmonary critical care consulted for hypoxic respiratory failure in patient with underlying sepsis from multiple sources. Patient seen at bedside He is on 50 L 50% high flow nasal cannula Requesting for food Review of Systems 2 General: Reports: 10 or more systems reviewed and unremarkable except in HPI and below Medications/Allergies Home Medications Medication Instructions Recorded Confirmed Last Taken Type albuterol sulfate 90 mcg/actuation 2 puff inhalation Q6H PRN 02/01/21 11/11/23 02/11/21 History aerosol inhaler (ProAir HFA) Shortness Of Breath aspirin 81 mg tablet,delayed 81 mg PO QAM 02/01/21 11/11/23 11/10/23 History release fluticasone propionate 50 1 spray intranasal DAILY 06/06/23 11/11/23 06/06/23 History mcg/actuation nasal spray,suspension naproxen sodium 220 mg capsule 440 mg PO BID PRN Pain 06/06/23 11/11/23 Unknown History (Aleve) furosemide 40 mg tablet 40 mg PO BID 10/23/23 11/11/23 11/10/23 History potassium chloride 10 mEq 10 meq PO BID 10/23/23 11/11/23 11/10/23 History tablet,extended release amlodipine 10 mg tablet 10 mg PO DAILY #90 tabs 11/13/23 11/15/23 Unknown Rx budesonide 160 mcg-glycopyr 9 2 inh inhalation BID #10.7 grams 11/13/23 11/15/23 Unknown Rx mcg-formot 4.8 mcg/actuation HFA inhaler (Breztri Aerosphere) metoprolol tartrate 50 mg tablet 50 mg PO TID #90 tabs 11/13/23 11/15/23 Unknown Rx furosemide 80 mg tablet 80 mg PO BID 11/15/23 11/15/23 Unknown History sulfamethoxazole 800 2 tab PO BID 11/15/23 11/15/23 Unknown History mg-trimethoprim 160 mg tablet Allergies Allergy/AdvReac Type Severity Reaction Status Date / Time acetaminophen [From Tylenol] Allergy Unknown Verified 11/11/23 05:16 Opioids - Morphine Analogues Allergy ADR-Halluci Verified 11/11/23 05:16 nating Current Medications Generic Name Dose Route Start Last Admin Trade Name Freq PRN Reason Stop Dose Admin Budesonide 0.5 mg 11/13/23 08:00 11/23/23 07:57 Budesonide 0.5 Mg/2 Ml Neb INHALATION 0.5 mg BID.RESPIRATORY FREYA Administration Heparin Sodium (Porcine) 5,000 unit 11/18/23 21:00 11/23/23 08:42 Heparin 5,000 Unit/Ml Inj 1 Ml SUBCUT 5,000 unit Q12H FREYA Administration Hydromorphone HCl 0.4 mg 11/21/23 16:04 11/23/23 11:05 Hydromorphone 1 Mg/Ml Inj 1 Ml IVP 0.4 mg Q2H PRN Administration pain Hydromorphone HCl 2 mg 11/22/23 10:54 11/22/23 11:11 Hydromorphone 4 Mg Tablet PO 2 mg Q6H PRN Administration MODERATE TO SEVERE PAIN Dexmedetomidine/Sodium Chloride 400 mcg in 100 mls @ 0 mls/hr 11/14/23 20:15 11/23/23 06:01 Precedex IV 0 mcg/kg/hr .Q0M FREYA 0 mls/hr Titration Protocol Per Protocol Clindamycin HCl/Dextrose 900 mg in 50 mls @ 100 mls/hr 11/15/23 14:00 11/23/23 06:18 Cleocin IV Infused Q8H FREYA Infusion Protocol Levofloxacin/Dextrose 750 mg in 150 mls @ 100 mls/hr 11/22/23 20:00 11/22/23 21:14 Levaquin-D5w IV Infused Q48H FREYA Infusion Protocol Dextrose 500 mls @ 25 mls/hr 11/22/23 10:15 11/23/23 05:36 D5w IV 25 mls/hr .Q20H FREYA Administration Meropenem 1,000 mg/ Dextrose 50 mls @ 100 mls/hr 11/22/23 21:00 11/23/23 09:11 IV Infused Q12H FREYA Infusion Protocol Ipratropium E[place]ace 0.5 mg 11/15/23 12:00 11/23/23 11:14 Ipratropium 0.5 Mg/2.5 Ml Neb INHALATION 0.5 mg Q4H.RESPIRATORY FREYA Administration Lanolin 1 applic 11/11/23 15:27 11/21/23 17:09 Lanolin Oint 7 Gm TOPICAL 1 applic PRN PRN Administration DRYNESS Levalbuterol HCl 0.63 mg 11/15/23 12:00 11/23/23 11:14 Levalbuterol 0.63 Mg/3 Ml Neb INHALATION 0.63 mg Q4H.RESPIRATORY FREYA Administration Lidocaine 1 patch 11/19/23 21:00 11/23/23 08:42 Lidocaine 5% Patch TOPICAL 1 patch FREYA Administration Methylprednisolone Sodium Succinate 30 mg 11/22/23 10:00 11/23/23 11:09 Methylprednisolone Sod Succ 40 Mg/Ml Inj IVP 30 mg Q8H FREYA Administration Metoprolol Tartrate 25 mg 11/15/23 18:00 11/23/23 05:42 Metoprolol Tartrate 25 Mg Tablet PO 25 mg Q12H FREYA Administration Multivitamins Therapeutic 1 tab 11/16/23 11:50 11/23/23 08:33 Multivitamin Therapeutic Tablet PO Not Given DAILY FREYA Nystatin 100,000 unit 11/16/23 11:50 11/23/23 08:41 Nystatin 100,000 Unit/Ml Udc 5 Ml PO 100,000 unit QID FREYA Administration Ondansetron HCl 4 mg 11/11/23 13:22 11/17/23 19:12 Ondansetron 2 Mg/Ml Sdv 2 Ml IVP 4 mg Q6H PRN Administration NAUSEA AND VOMITING Pantoprazole Sodium 40 mg 11/11/23 18:30 11/23/23 05:37 Pantoprazole 40 Mg Sdv IVP 40 mg Q12H FREYA Administration Promethazine HCl 12.5 mg 11/11/23 20:54 11/12/23 23:29 Promethazine 25 Mg/Ml Sdv 1 Ml IM 12.5 mg Q6H PRN Administration NAUSEA Saliva Substitute 1 spray 11/13/23 14:53 11/21/23 17:10 Saliva Stimulant [place] 30 Ml Btl MUCOUS MEM 1 spray PRN PRN Administration DRY MOUTH Sucralfate 1 gm 11/15/23 12:00 11/23/23 10:55 Sucralfate 1 Gm Tablet PO Not Given AC&BEDTIME FREYA Trazodone HCl 25 mg 11/16/23 21:45 11/22/23 20:25 Trazodone 50 Mg Tablet PO 25 mg BEDTIME FREYA Administration PFSH Acute 2 PFSH: Medical History Legionella pneumonia CHF (congestive heart failure), NYHA class III LBBB (left bundle branch block) COPD (chronic obstructive pulmonary disease) HTN (hypertension) Surgical History No history of previous surgery Family History Other Hypertension Denies family history of Diabetes CAD (coronary artery disease) Clotting disorder Dementia Chronic kidney disease (CKD) Suicide Anesthesia complication Bleeding disorder Lung disease Cancer Stroke Social History Smoking and tobacco/nicotine status: former use of tobacco/nicotine Quit status (tobacco/nicotine): has quit using Alcohol intake: former Substance/Drug Use: current Other substance/drug use details: No inhalation. Housing: House Vitals/I&O/Wt Last Vital Signs Temp 97.4 F L 11/23/23 08:30 Pulse 101 H 11/23/23 11:41 Resp 26 H 11/23/23 11:41 BP 132/74 11/23/23 10:30 Pulse Ox 96 11/23/23 11:41 O2 Del Method BiPAP 11/23/23 11:05 O2 Flow Rate 50 11/23/23 11:41 FiO2 50 11/23/23 11:41 11/22/23 11/23/23 11/23/23 22:59 06:59 14:59 Intake Total 300 / 350 573.325 / 923.325 50 / 50 Output Total 1100 / 1450 450 / 1900 Balance -800 / -1100 123.325 / -976.675 50 / 50 Weight last 48 hrs Weight 227 lb Weight 216 lb 8 oz Physical Exam 2 Narrative: General: alert, NAD HEENT: conj clear, EOMI, PERRL, tongue appears to have sores Neck: supple, no meningismus Heme: no cervical LAP Respiratory: Inspection: No visible deformity of the chest wall Palpation: Trachea is mildly deviated to the right, bilateral symmetric expansion Percussion: Bilateral tympanic percussion note both anterior and posteriorly Auscultation: Bilateral clear to auscultation both anterior and posteriorly, no crackles wheezing or rhonchi Cardiovascular: rrr, nl s1s2, no mrg Abdomen: soft, nt, nd, no r/g, bs+ Extremities: Right lower extremity wound appears to be significantly improved and started to granulate : no CVA tenderness Skin: intact, no rash MSK: no back or neck pain Neurologic: grossly intact Urinary Catheter Management: Love: Cath Placed During This Visit: yes Reason for Continuing Indwelling Catheter: Accurate Measurement of Urinary Output in Critically Ill Patients Urinary Catheter Date of Insertion: 11/11/23 Urinary Catheter Time of Insertion: 06:18 Data 11/24/23 03:27 11/24/23 03:27 Other Labs: Radiology Impressions Head CT 11/11/23 04:56 IMPRESSION: 1. No acute intracranial hemorrhage or mass effect identified. 2. Chronic microvascular ischemic disease greater than anticipated for age. Chest CT 11/15/23 11:35 IMPRESSION: Trace bilateral pleural effusions and overlying atelectasis/consolidation, underlying infiltrate not excluded. Peripancreatic inflammatory stranding. If there is correlating elevated lipase this could represent acute pancreatitis. COMMENTS: The presence of pulmonary emphysema on CT is an independent risk factor for lung cancer. In the absence of a history or active diagnosis of lung cancer, it is recommended that this patient with emphysema be evaluated for enrollment in a low dose CT lung cancer screening program. Chest X-Ray 11/22/23 09:56 IMPRESSION: Stable bibasilar infiltrates Neck CT 11/22/23 14:01 IMPRESSION: Normal CT neck Bilateral pleural effusions Laboratory Results WBC 14.20 10^3/uL (3.29-11.43) H 11/23/23 02:50 RBC 2.84 10^6/uL (3.85-5.65) L 11/23/23 02:50 Hgb 7.90 g/dL (11.27-16.99) L 11/23/23 02:50 Hct 27.4 % (37-53) L 11/23/23 02:50 MCV 96.5 fl (82-101) 11/23/23 02:50 MCH 27.8 pg (27-33) 11/23/23 02:50 MCHC 28.8 g/dL (30-55) L 11/23/23 02:50 RDW 18.4 % (12.1-15.1) H 11/23/23 02:50 Plt Count 418 10^3/cmm (157-399) H 11/23/23 02:50 MPV 10.8 fL (7.4-10.4) H 11/23/23 02:50 Neut % (Auto) 95.0 % 11/23/23 02:50 Lymph % (Auto) 2.7 % 11/23/23 02:50 [place] % (Auto) 1.6 % 11/23/23 02:50 Eos % (Auto) 0.0 % 11/23/23 02:50 Baso % (Auto) 0.1 % 11/23/23 02:50 Neut # (Auto) 13.48 10^3/uL (1.8-7.7) H 11/23/23 02:50 Lymph # (Auto) 0.4 10^3/uL (0.8-4.8) L 11/23/23 02:50 [place] # (Auto) 0.2 10^3/uL (0.2-0.9) 11/23/23 02:50 Eos # (Auto) 0.0 10^3/uL (0.0-0.8) 11/23/23 02:50 Baso # (Auto) 0.0 10^3/uL (0.0-0.1) 11/23/23 02:50 Nucleated RBC % (auto) 0 % 11/23/23 02:50 Total Counted 100 (0-100) 11/11/23 05:15 Atypical Lymphs % Not Reportable 11/11/23 05:15 Segmented Neutrophils 86 % 11/11/23 05:15 Abs Segm Neuts (Man) 23.1 10/cmm (1.6-7.1) H 11/11/23 05:15 Band Neutrophils Not Reportable 11/11/23 05:15 Lymphocytes (Manual) 7 % 11/11/23 05:15 Monocytes (Manual) 3.0 % 11/11/23 05:15 Absolute Monocytes 0.8 10^3/cmm (0.1-0.6) H 11/11/23 05:15 Eosinophils (Manual) 1 % 11/11/23 05:15 Absolute Eosinophils 0.3 10^3/cmm (0.0-0.7) 11/11/23 05:15 Basophils (Manual) 0.0 % 11/11/23 05:15 Absolute Basophils 0.0 10^3/cmm (0.0-0.2) 11/11/23 05:15 Myelocytes 3.0 % 11/11/23 05:15 Nucleated RBCs # 0.0 /100WBC 11/23/23 02:50 Hypersegmented Polys 1+ 11/11/23 05:15 Platelet Estimate Increased (Normal) 11/11/23 05:15 Giant Platelets Trace 11/11/23 05:15 Anisocytosis 1+ H 11/11/23 05:15 G6PD 31.4 U/g Hgb (7.0-20.5) H 11/20/23 03:20 PT 16.50 SECONDS (12.1-14.9) H 11/13/23 08:01 INR 1.29 (0.8-1.2) H 11/13/23 08:01 Specimen Type Venous 11/21/23 04:55 Sample Site Brachial, left 11/21/23 04:55 ABG pH 7.34 (7.35-7.45) L 11/21/23 04:55 ABG pCO2 55.7 mmHg (35-45) H 11/21/23 04:55 ABG pO2 37.6 mmHg (80.0-100.0) L* 11/21/23 04:55 ABG PO2/FiO2 Ratio 0 11/21/23 04:55 ABG HCO3 29.8 mmol/L (22-26) H 11/21/23 04:55 ABG O2 Saturation 98.8 11/11/23 05:56 ABG Base Excess 3.3 mmol/L (-2.0-2.0) H 11/21/23 04:55 Aadm Test Pos 11/21/23 04:55 A-a O2 Gradient Not Reportable 11/11/23 05:56 Hematocrit 26.2 % (42-52) L 11/21/23 04:55 Hgb O2 Saturation 96.8 % (95-100) 11/11/23 05:56 Carboxyhemoglobin 1.6 %THgb (0.4-20.1) 11/11/23 05:56 Methemoglobin 0.5 % (0.4-1.5) 11/11/23 05:56 Total Hemoglobin 5.8 g/dL (14-18) L 11/11/23 05:56 Sodium 126.0 mmol/L (131-143) L 11/11/23 05:56 Potassium 5.1 mmol/L (3.5-5.0) H 11/11/23 05:56 Glucose 135.0 mg/dL (70-115) H 11/11/23 05:56 Ionized Calcium 1.0 mmol/L (1.1-1.4) L 11/11/23 05:56 O2 Delivery Device Heated high flow 11/21/23 04:55 O2 Liters/Min 50.0 % 11/21/23 04:55 FiO2 60.0 % 11/21/23 04:55 Commercial Intelligence Manager ID [email or web address] 11/21/23 04:55 Sodium 150 mmol/L (136-145) H 11/23/23 02:50 Potassium 3.9 mmol/L (3.5-5.1) 11/23/23 02:50 Chloride 113 mmol/L (98-107) H 11/23/23 02:50 Carbon Dioxide 30 mmol/L (22-29) H 11/23/23 02:50 Anion Gap 10.9 (5-19) 11/23/23 02:50 BUN 43 mg/dL (8-23) H 11/23/23 02:50 Creatinine 1.5 mg/dL (0.7-1.2) H 11/23/23 02:50 GFR Calculation 46.8 mL/min (90-130) L 11/23/23 02:50 Glucose 159 mg/dL (65-115) H 11/23/23 02:50 POC Glucose 103 mg/dL (70-110) 11/21/23 11:36 Calculated Osmolality 324 mOsm/kg (285-295) H 11/23/23 02:50 Lactic Acid 6.3 mmol/L (0.5-2.2) H* 11/11/23 05:15 Lactic Acid (Sepsis) 6.1 mmol/L (0.5-2.2) H* 11/11/23 07:33 Lactate 0.5 mmol/L (0.5-2.2) 11/13/23 10:03 Uric Acid 12.0 mg/dL (3.4-7.0) H 11/20/23 08:19 Calcium 8.8 mg/dL (8.5-10.5) 11/23/23 02:50 Phosphorus 8.6 mg/dL (2.5-4.5) H* 11/11/23 05:15 Magnesium 2.4 mg/dL (1.7-2.3) H 11/23/23 00:47 Iron 11 ug/dL (59-158) L 11/15/23 11:54 TIBC 171 mcg/dl 11/15/23 11:54 % Saturation 6.4 % (20-50) L 11/15/23 11:54 Unsat Iron Binding 160 ug/dL (112-347) 11/15/23 11:54 Total Bilirubin 0.2 mg/dL (0.15-1.2) 11/23/23 02:50 AST 13 U/L (0-40) 11/23/23 02:50 ALT 11 U/L (0-41) 11/23/23 02:50 Alkaline Phosphatase 71 U/L (40-130) 11/23/23 02:50 Ammonia 26 umol/L (16-60) 11/12/23 07:10 Creatine Kinase 97 U/L (39-308) 11/11/23 05:15 Creatine Kinase 101 U/L (39-308) 11/11/23 05:15 Troponin T Baseline 33 ng/L (0-15) H 11/23/23 00:47 Troponin T 120 Minute 37.22 ng/L (0-15) H 11/23/23 02:50 Delta Troponin T 4.22 ABS# (0-10) 11/23/23 02:50 Troponin T Hi Sens 6Hr 30.22 ng/L (0-15) H 11/23/23 07:08 Troponin T Hi Sens 6Hr Delta -2.78 ng/L (0-12) L 11/23/23 07:08 NT-Pro-B Natriuret Pep 2964 pg/mL (0-125) H 11/20/23 02:17 Total Protein 7.2 g/dL (6.6-8.7) 11/23/23 02:50 Albumin 3.0 g/dL (3.5-5.2) L 11/23/23 02:50 Globulin 4.2 g/dL (1.3-4.6) 11/23/23 02:50 Vitamin B12 1654 pg/mL (232-1245) H 11/15/23 11:54 Folate 3.9 ng/mL (4.5-32.2) L 11/16/23 03:55 Procalcitonin 0.60 ng/mL (0-0.5) H 11/15/23 11:54 Random Cortisol 25.73 ug/dL (2.47-19.5) H 11/11/23 05:15 Urine Color Yellow (Yellow) 11/11/23 06:15 Urine Appearance Clear (CLEAR) 11/11/23 06:15 Urine pH 5 (5-7) 11/11/23 06:15 Ur Specific [place] 1.015 (1.005-1.030) 11/11/23 06:15 Urine Protein Neg (Negative) 11/11/23 06:15 Urine Glucose (UA) Norm (Normal) 11/11/23 06:15 Urine Ketones Negative (Negative) 11/11/23 06:15 Urine Blood 2+ (Negative) H 11/11/23 06:15 Urine Nitrate Negative (Negative) 11/11/23 06:15 Urine Bilirubin Neg (Negative) 11/11/23 06:15 Urine Urobilinogen Neg mg/dL (Negative) 11/11/23 06:15 Ur Leukocyte Esterase 1+ (Negative) H 11/11/23 06:15 Urine RBC Rare /hpf (0-2) 11/11/23 06:15 Urine WBC 5-10 /hpf (0-5) H 11/11/23 06:15 Ur Squamous Epith Cells 0-4 /hpf (0-5) H 11/11/23 06:15 Ur Transition Epith Cell 0-4 /hpf 11/11/23 06:15 Amorphous Sediment Not Reportable 11/11/23 06:15 Urine Bacteria Trace /hpf (NONE) 11/11/23 06:15 Urine Mucus Trace /hpf 11/11/23 06:15 Urine Yeast Trace /hpf 11/11/23 06:15 Fluid Crystals Sent to path 11/20/23 16:12 Fluid Glucose 28.0 mg/dL 11/20/23 16:12 Ethyl Alcohol < 10 mg/dL (0-10) 11/11/23 21:19 C. difficile Tox (PCR) Not detected (NOT DETECTED) 11/15/23 15:18 Coronavirus 229E (PCR) Not detected (NOT DETECT) 11/18/23 21:01 SARS-CoV-2 (PCR) Not detected (NOT DETECT) 11/18/23 21:01 MRSA (PCR) Not detected (NOT DETECTED) 11/11/23 17:28 Blood Type AB Negative 11/15/23 11:54 Rho(D) Type Negative 11/15/23 11:54 Antibody Screen Negative 11/15/23 11:54 Crossmatch See Detail 11/15/23 11:54 Micro: Microbiology 11/20/23 16:12 Gram Stain - Final Ankle - Aspirate Wound Culture - Preliminary A&P Assessment and plan (1) Hypoxia: (2) CHF (congestive heart failure), NYHA class III: Qualifiers: Congestive heart failure chronicity: chronic Congestive heart failure type: systolic Qualified Code(s): I50.22 - Chronic systolic (congestive) heart failure (3) Gastric ulcer: (4) ALTA (acute kidney injury): (5) CKD (chronic kidney disease): (6) COPD (chronic obstructive pulmonary disease): (7) Smoker: (8) Pulmonary emphysema: (9) Sepsis: (10) Cellulitis: (11) Necrotizing fasciitis due to Streptococcus pyogenes: Plan # Patient who presented with septic shock on presentation secondary to E. coli UTI/necrotizing fasciitis of right lower extremity due to strep pyogenes/left ankle septic arthritis -s/p right debridement of necrotizing fasciitis. came off pressors, improving leukocytosis, -improving wound --Wound cultures grew Staph aureus, strep pyogenes, Enterococcus -However later leukocytosis started to worsen-patient still requiring high flow oxygen with mild pleural effusions-concern for pneumonia-meropenem added -urther investigations showed left ankle bursitis and abscess-s/p incision and drainage of left ankle abscess-improving leukocytosis and patient started clinically improving Covered with meropenem, clindamycin, Levaquin - # Hypoxia in patient with underlying pulmonary emphysema in patient with extensive smoking history # Bilateral pleural effusions-inpatient with history of class III NYHA CHF -Uses 2 L oxygen baseline-Currently requiring high flow nasal cannula 50% and 50 L -Neck CT-revealed bilateral pleural effusions; however a more upright chest x- ray did not show significant pleural effusion; -Patient BNP is greater than 2500; echo showed normal LV function during this admission; patient net -1 L since admission; -recommended Lasix 20 Mg as needed to maintain net negative balance -There is a concern if patient has developing empyema/parapneumonic effusion given his aspiration risk-however patient is covered with broad-spectrum and leukocytosis trending down and bedside ultrasound showed minimal effusions with no significant pocket to tap # ALTA on CKD-renal function remained stable-continue monitoring renal parameters and urine output # Hypernatremia 150-patient is on d5w - - Consult Attestations 2 Medical Necessity Statement: Patient clinically improving from sepsis-still requiring high flow nasal cannula 50% 50 L-if he continues to be stable we can downgrade to floor Time Spent in Patient Care: Greater than 35 minutes (>than 50% of time spent in counselling and/or direct pt care on unit) . Critical Care Time: The high probability of a clinically significant, sudden or life threatening deterioration of the patient's [pulmonary, renal infectious,] system(s) required my full and direct attention, intervention and personal management. The critical care time is as shown. This time is in addition to time spent performing any reported procedures but includes the following: [x] Data and vital sign review and interpretation [x] Patient assessment, examination and intervention [x] Documentation [x] Medication orders and management Critical Care Time (min): 65 Coding Level of Care Code Acute Code for Chg Fwd Diagnoses Hypoxia R09.02 Chronic systolic congestive heart failure, NYHA class 3 I50.22 Congestive heart failure chronicity: chronic Congestive heart failure type: systolic Gastric ulcer K25.9 ALTA (acute kidney injury) N17.9 CKD (chronic kidney disease) N18.9 COPD (chronic obstructive pulmonary disease) J44.9 Smoker F17.200 Pulmonary emphysema J43.9 Sepsis A41.9 Cellulitis L03.90 Necrotizing fasciitis due to Streptococcus pyogenes M72.6; B95.0 Time Spent (min) 65
[2023-11-23 13:19] LABS: ABG PCO2 50.2 mmHg (35-45); ABG PH Result 7.37 (7.35-7.45); Alveolar-Arterial Oxygen Gradi 29.3 mmHg (5-10); Arterial Blood Gas Hematocrit 29.2 % (42-52); Base Excess ABG 3.2 mmol/L (-2.0-2.0); Blood Gas Operator Identificat GD; Blood Gas Sample Site Brachial, right; Blood Gas Sample Type Arterial; Carboxyhemoglobin 1.3 %THgb (0.4-20.1); HCO3 ABG 29.1 mmol/L (22-26); HGB O2 Sat 91.3 % (95-100); Ionized Calcium Level - ABG 1.3 mmol/L (1.1-1.4); Methemoglobin 0.7 % (0.4-1.5); Oxygen Device NC; Oxygen Saturation ABG 93.1; PO2 ABG 65.6 mmHg (80.0-100.0); PO2 FiO2 Ratio Arterial Blood 0; Potassium Level - ABG 3.6 mmol/L (3.5-5.0); Total Hemoglobin 9.5 g/dL (14-18)
[2023-11-23 14:33] LABS: Lipase 90 U/L (13-60); NT Pro B Type Natriuretic Pept 2066 pg/mL (0-125)
[2023-11-23] MEDS: AA-Dex 5%-20% w/Lytes 1,000 ML 12.5 ML IV (18:07)
[2023-11-23] MEDS: trazodone 50 mg Tablet 25 MG PO (20:14)
--- NOTE | 2023-11-23 21:08 | PM.PN ---
Subjective Subjective: He states breathing is feeling the same. No chest pain. No nausea vomiting or diarrhea. Pain in left ankle has improved after washout. Some throbbing pain in right lower leg wound. Vitals/I&O/Wt Last Vital Signs Temp 98.2 F 11/23/23 17:00 Pulse 104 H 11/23/23 20:16 Resp 18 11/23/23 20:16 BP 148/80 11/23/23 18:00 Pulse Ox 95 11/23/23 20:16 O2 Del Method Heated High Flow 11/23/23 20:16 O2 Flow Rate 50 11/23/23 20:16 FiO2 50 11/23/23 20:16 11/23/23 11/23/23 11/23/23 06:59 14:59 22:59 Intake Total 573.325 / 923.325 100 / 100 346.25 / 446.25 Output Total 450 / 1900 175 / 175 Balance 123.325 / -976.675 100 / 100 171.25 / 271.25 Weight last 48 hrs Weight 102.965 kg Weight 98.203 kg Physical Exam Narrative: Sitting up in bed Const: COMMON NORMALS: patient oriented x3 and alert GENERAL APPEARANCE: cooperative ORIENTATION/CONSCIOUSNESS: Yes awake HENMT: COMMON NORMALS: oropharynx normal Neck/C-Spine: COMMON NORMALS: no JVD Resp: COMMON NORMALS: normal respiratory effort and clear to auscultation bilaterally AUSCULTATION: clear to auscultation bilaterally, rhonchi and wheezes left lower Cardio: COMMON NORMALS: no JVD, regular rhythm, S1 normal heart sound present, S2 normal heart sound present and No murmurs present (Cardio) RHYTHM: regular rhythm HEART SOUNDS: S1 normal heart sound present and S2 normal heart sound present GI: COMMON NORMALS: Normal to inspection, nondistended, normoactive bowel sounds present, Soft to palpation and non-tender PALPATION: Yes Soft to palpation Extremity: COMMON NORMALS: no joint enlargement and no pedal edema NARRATIVE EXTREMITY EXAM: Severe left ankle tenderness. No redness, open wounds, fluctuance. OTHER: Examined other joints, no pain or swelling. Neuro: COMMON NORMALS: patient oriented x3 and moves all extremities SENSORIUM/ORIENTATION: Yes alert Skin: COMMON NORMALS: no rashes or lesions noted GENERAL SKIN EXAM: no rashes or lesions noted OTHER: New dressing of right lower extremity without strikethrough or bleeding. L ankle w improved edema. Urinary Catheter Management: Love: Cath Placed During This Visit: yes Reason for Continuing Indwelling Catheter: Accurate Measurement of Urinary Output in Critically Ill Patients Urinary Catheter Date of Insertion: 11/11/23 Urinary Catheter Time of Insertion: 06:18 Data 11/23/23 02:50 11/23/23 02:50 Micro: Microbiology 11/20/23 16:12 Gram Stain - Final Ankle - Aspirate Wound Culture - Final A&P Assessment and plan (1) Hypoxia: Discussed with him and his son, discussed with respiratory therapy and induction brazer. Reviewed vital signs, CBC, ABG, CMP, chest x-ray. Has been started on steroids. Still some wheezing, worse in the left lower lung. Rhonchi. Difficulty with expectorating sputum. CT neck discussed with him and his son, without abnormality, however, some wartlike lesions noted around his tongue and mouth. Tomorrow with ENT being available senior energy consultant, please request consultation for additional assessment/visualization of hypopharynx given recurrent difficulty with expectoration of sputum, aspiration. Continue n.p.o. for now. Continue treatment of pneumonia, COPD this admission. As per discussion with pulmonology, appreciate additional assessment, no significant pleural effusions that are drainable on bedside ultrasound. He appears slightly more on the dry side, noted -600 cc last 24 hours on review this afternoon, has been receiving D5W at lower rate. Additionally starting low rate TPN with ramp-up over the next 24 hours. Added stop time 1 day for D5W. Reassess volume status, consider diuretic if signs of overload. Leukocytosis continues to trend down. Still some mild tachycardia. Consideration given to PE, but less likely with improvement in tachycardia, maintaining blood pressure, echocardiogram with normal RV function. Appreciate pulmonology opinion. Continue prophylactic heparin. Consideration of anticoagulation empirically until able to assess CTA versus VQ scan in case of worsening and/or if can be started more safely RE some hemorrhagic synovitis in the left ankle and UGIB. He is using flutter valve. Continue to encourage. Coughing up phlegm slightly better. But still catching up in the upper airway. Tonsils with mild enlargement on exam. CT neck WNL. ENT will be available on Friday, consider consultation for additional assessment of hypopharynx with concern for recurrent aspiration, some tonsillar enlargement, wartlike lesions noted on the tongue. Continue pulmonary toilet, expectoration. With source control with infection left ankle per discussion with electronic systems security assessment though elevated risk, does require some steroids which we discussed with him may add depending on his further condition. Continue IV antibiotics. Inhaled steroids. Continue heated high flow cannula. Sputum culture w scant normal [place]. Persistent hypoxia, on BiPAP overnight and this morning. Discussed with RT, switched over to heated high flow to allow for pulmonary toilet, expectoration. Continue empiric antibiotic coverage. Continue breathing treatments. Diminished air entry, wheezing. Would benefit from steroids, or, concern for septic arthritis currently as above. Discussed with induction brazer. Additional treatment for left ankle as above. Consideration of steroid with source control. Discussed with him and his son, discussed risks. BiPAP support as needed but would prefer to maintain on heated high flow if possible. Continue meropenem, clindamycin. Levaquin. Continue chest vest, pulmonary toilet. Flutter valve. Continue oxygen support, BiPAP support as needed. Reviewed hemoglobin. VTE prophylaxis. (2) Acute left ankle pain: Significant improvement in left ankle pain. Improving swelling. Reviewed left ankle cultures, so far no growth, although he had been on antibiotics and so as expected cultures may be unreliable. Reviewed crystals, pending, have been sent to pathology. Continue with IV antibiotics. Reviewed podiatry note. He reports pain in the left ankle with improvement. Ankle arthroscopy and washout today for possible septic arthritis, with possible gouty arthritis.. Reviewed podiatry note. Follow-up cultures. Call if crystals. Continue IV antibiotics. Very tender left ankle noted on exam today. He states building up over about 2-3 days. No fluctuance, superficial wound or erythema. Or, very tender ankle. With recent necrotizing infection of right lower extremity, with strep and staph growing in the wound, persistent leukocytosis, tachycardia. Possible septic arthritis, discussed with him. Not a candidate for MRI. Not a safe candidate for contrast-enhanced CT with some worsening renal function, creatinine up to 2. Discussed with orthopedics on-call, radiology, obtain CT as per recommendation, discussed with podiatry, with concern for possible septic arthritis appreciate consultation, arthrocentesis, studies sent for cell count, culture, crystals. Noted 52,000 WBC. Uric acid requested, also noted elevated 12. Discussed with patient and his son, unfortunately suspicion still remains regarding septic arthritis given recent infection, persistent sirs. Discussed risk to the joint with septic arthritis, recommended treatment with joint washout. Discussed with pulmonology. Consideration of likely seizure versus intubation and mechanical ventilatory support depending on anesthesia assessment. In addition with suspicion of concomitant gout, pending crystals. He has no uric acid level very elevated at 12. Not a safe candidate for allopurinol at the moment with worsening renal function. Discussed with pharmacist. Requested rasburicase. Discussed with him. (3) Hypernatremia: Started yesterday on low rate D5W infusion. Today also having TPN. Also discussed with pharmacist and to which ever effusions possible switched over to D5 (meropenem). (4) Necrotizing fasciitis due to Streptococcus pyogenes: Reviewed surgery note, has been doing well. As per surgery in case needed steroids given good healing of the wound in the right lower extremity steroids likely should be okay. Reviewed surgery note. No additional debridement at this time. Having some pain in his right leg, not a candidate for NSAIDs, reports rash from acetaminophen, history of hallucination with opioids, but states this was at least several decades ago, request to try small dose of. With monitoring. Continue IV antibiotics. Continue clindamycin for now. At risk of C. difficile with clindamycin. Monitor. Improving WBC. C. difficile Negative Continue wound reassessments. Discussed with child welfare caseworker. (5) Sepsis: Persistent SIRS, possible persistent sepsis with possible septic arthritis as above. Continue empiric antibiotic coverage. No additional debridement today. Patient presents with sepsis presumably from his right lower extremity cellulitis Septic shock has resolved. Patient continues to have leukocytosis, severe anemia with borderline blood pressures and tachycardia. Maintain mean artery pressure over 65. Maintain saturation over 90%. Strict input output charting, daily weights. (6) Cellulitis: Patient with evidence of right lower extremity cellulitis. Post debridement. Reviewed surgery note. Continuing to improve. Follow-up blood culture, wound culture. Wound culture growing group A strep. Given concerns for deep extensive tissue infection requiring deep debridement for now we will add clindamycin. MRSA swab negative so vancomycin was discontinued. Continue with meropenem. Wound care as per surgical team. Out of bed to chair. Patient has persistent leukocytosis. Mild trending down since debridement but not as much as expected. Will need to continue to monitor the wound to make sure he does not require further debridement. Negative C. difficile (7) Status post excisional debridement: (8) Anemia associated with acute blood loss: This is secondary to upper GI bleed. Appreciate surgical recommendations. Post endoscopy. 11/12 showed gastric ulcers. Hemoglobin down to 7.1 today. Transfuse 2 unit of PRBC keeping hemoglobin over 8. Continue with Protonix twice daily. Add Carafate before meals and at bedtime. Hold off on anticoagulation. Till now patient has received 2 units of blood transfusion and 1 unit of FFP. (9) ALTA (acute kidney injury): Reviewed renal function. Slight improvement. Stop albumin. Strict improper charting, daily weights. Monitor BMP in evening. Love in place. (10) Pulmonary emphysema: (11) COPD (chronic obstructive pulmonary disease): Qualifiers: COPD type: unspecified COPD Qualified Code(s): J44.9 - Chronic obstructive pulmonary disease, unspecified (12) LBBB (left bundle branch block): Had nonsustained V. tach episode. EKG on admission did not show LBBB but today morning EKG shows LBBB. Can be intermittent LBBB in setting of demand ischemia but cannot rule out ACS given new LBBB for now. Recheck troponins, check echocardiogram. Metoprolol. (13) NSVT (nonsustained ventricular tachycardia): (14) Hypothermia: Resolved (15) Hypotension: Resolved. Now off norepinephrine and albumin (16) Hyperkalemia: Resolved (17) Acute encephalopathy: Seems to be improving. Patient is out of bed to chair. Continue to monitor. Precedex if needed. Otherwise can add Xanax 0.25 mg nightly as needed. (18) Alkaline phosphatase elevation: Alk phos now normalized, possibly secondary to problem with the left ankle. Known cholelithiasis. Cholelithiasis but otherwise unremarkable gallbladder. ultrasound. Finding of moderately enlarged liver, hepatic steatosis. Plan CODE STATUS: Son will be the DPOA. Patient would want to remain full code for now. But does not want to remain on life support for long. PUD prophylaxis: Full dose Protonix twice daily DVT prophylaxis: SCDs. Hold off on medical prophylaxis given GI bleed Continue with care at ICU level This documentation was created by [employer] goodwill ambassador software. Every effort was made to ensure accuracy of goodwill ambassador. Any obvious errors or omissions should be clarified with the author of the document. Attestations Medical Necessity Statement*: Continue admission for assessment management of possible septic arthritis, respiratory failure, necrotizing right leg infection. Coding Level of Care Code Critical Care >/= 30 minutes Critical care time (in minutes): 40 The high probability of a clinically significant, sudden or life threatening deterioration, as referenced in this documentation, required my full and direct attention, intervention and personal management. The critical care time shown is in addition to time spent performing any reported separately billable procedures and includes the following: [x] Data and vital sign review and interpretation [x] Patient assessment, examination and intervention [x] Medication orders and management [x] Patient/Family updates as able [x] Care Coordination and Documentation. Diagnoses Hypoxia R09.02 Acute left ankle pain M25.572 Hypernatremia E87.0 Necrotizing fasciitis due to Streptococcus pyogenes M72.6; B95.0 Sepsis A41.9 Cellulitis L03.90 Status post excisional debridement Z98.890 Anemia associated with acute blood loss D62 ALTA (acute kidney injury) N17.9 Pulmonary emphysema J43.9 Chronic obstructive pulmonary disease, unspecified COPD type J44.9 COPD type: unspecified COPD LBBB (left bundle branch block) I44.7 NSVT (nonsustained ventricular tachycardia) I47.29 Hypothermia T68.XXXA Hypotension I95.9 Hyperkalemia E87.5 Acute encephalopathy G93.40 Alkaline phosphatase elevation R74.8
[2023-11-24] VITALS (44 sets, daily range): BP systolic 136–159; BP diastolic 76–126; PULSE 66–110; RESP 13–26; TEMP 36.6–37.3; O2SAT 86–100
[2023-11-24] MEDS: methylPREDNISolone sod succ 40 mg/mL INJ 30 MG IVP ×3 (02:37→18:33)
[2023-11-24] MEDS: levalbuterol 0.63 mg/3 mL Neb INHALATION ×6 (03:35→23:31)
[2023-11-24] MEDS: ipratropium 0.5 mg/2.5 mL Neb INHALATION ×6 (03:35→23:31)
[2023-11-24 04:12] LABS: Basophils % 0.1 %; Hematocrit 27.6 % (37-53); Lymphocytes # 0.6 10^3/uL (0.8-4.8); Lymphocytes % 4.7 %; Mean Corpuscular HGB Conc 29.7 g/dL (30-55); Mean Corpuscular Hemoglobin 28.1 pg (27-33); Mean Corpuscular Volume 94.5 fl (82-101); Mean Platelet Volume 11.7 fL (7.4-10.4); Monocytes # 0.4 10^3/uL (0.2-0.9); Monocytes % 3.6 %; Neutrophils # 11.12 10^3/uL (1.8-7.7); Nucleated Red Blood Cells % 0 %; Platelet Count 420 10^3/cmm (157-399); Red Blood Count 2.92 10^6/uL (3.85-5.65); Red Cell Distribution Width 18.4 % (12.1-15.1); White Blood Count 12.21 10^3/uL (3.29-11.43)
[2023-11-24 04:37] LABS: Anion Gap 10.5 (5-19); Blood Urea Nitrogen 52 mg/dL (8-23); Calcium 8.5 mg/dL (8.5-10.5); Carbon Dioxide 30 mmol/L (22-29); Chloride 113 mmol/L (98-107); Glomerular Filtration Rate 46.8 mL/min (90-130); Glucose 189 mg/dL (65-115); Osmolality Calculated 329 mOsm/kg (285-295); Potassium 3.5 mmol/L (3.5-5.1); Sodium 150 mmol/L (136-145)
[2023-11-24] MEDS: pantoprazole 40 mg SDV IVP ×2 (06:16→18:34)
[2023-11-24] MEDS: clindamycin 900 MG/50 ML PREMIX 100 MG IV (06:16)
[2023-11-24] MEDS: metoprolol tartrate 25 mg Tablet PO ×2 (06:16→11:37)
[2023-11-24] MEDS: sucralfate 1 gm Tablet PO ×4 (06:16→20:29)
[2023-11-24] MEDS: budesonide 0.5 mg/2 mL Neb INHALATION ×2 (07:21→19:09)
[2023-11-24] MEDS: lidocaine 5% Patch 1 PATCH TOPICAL (08:59)
[2023-11-24] MEDS: heparin 5,000 unit/mL INJ 1 mL 5000 UNIT SUBCUT ×2 (09:00→20:28)
[2023-11-24] MEDS: nystatin 100,000 unit/mL UDC 5 mL 100000 UNIT PO ×4 (09:00→20:29)
[2023-11-24] MEDS: multivitamin therapeutic Tablet 1 TAB PO (09:00)
[2023-11-24] MEDS: MEROPENEM IV (09:02)
[2023-11-24] MEDS: DEXTROSE 5% IV (09:02)
[2023-11-24] MEDS: HYDROmorphone 1 mg/mL INJ 1 mL 0.4 MG IVP (11:34)
[2023-11-24] MEDS: dextrose 5%-sod chloride 0.9% 1,000 ML 50 ML IV (11:37)
[2023-11-24] MEDS: ceFAZolin 2,000 MG in sodium chloride 0.9% (plus) 50 ML 100 MG IV ×2 (11:37→18:39)
--- NOTE | 2023-11-24 13:18 | PC.NURSE ---
Report called to CATHY Gomez.
--- NOTE | 2023-11-24 14:03 | PC.NURSE ---
Patient and belongings taken to [facility]. Patient's son called and notified.
--- NOTE | 2023-11-24 14:08 | PC.NURSE ---
Patient arrived to the unit via chair. Patient is resting in his chair in his room. Patient has no complaints at this time. Nurse educated visualization developer workman, and room environment.Nurse will continue to monitor.
--- NOTE | 2023-11-24 15:34 | P.PN_ITS ---
Subjective 2 Subjective: Labs appreciated. Seen sitting up in chair. Awake and alert. Denies any nausea, vomiting, headache. Currently on 10 L of oxygen high flow nasal cannula oxygen supplementation saturating more than 96%. Slightly tachycardic. Did have 1 episode of nonsustained V. tach earlier today morning. Has remained afebrile and hemodynamically stable otherwise. Urine output of around 800 cc in last 24 hours. Patient is overall euvolemic since admission. Medications: Reviewed: Yes Vitals/I&O/Wt Last Vital Signs Temp 99.2 F 11/24/23 05:00 Pulse 81 11/24/23 15:13 Resp 16 11/24/23 15:04 BP 153/80 11/24/23 14:11 Pulse Ox 94 11/24/23 15:04 O2 Del Method High Flow Nasal Cannula 11/24/23 15:04 O2 Flow Rate 8 11/24/23 15:04 FiO2 50 11/24/23 07:26 11/24/23 11/24/23 11/24/23 06:59 14:59 22:59 Intake Total 50 / 546.25 372.708 / 372.708 Output Total 650 / 825 Balance -600 / -278.75 372.708 / 372.708 Weight last 48 hrs Weight 102.058 kg Weight 102.965 kg Physical Exam 2 Narrative: Sitting up in bed Const: COMMON NORMALS: patient oriented x3 and alert GENERAL APPEARANCE: c ooperative ORIENTATION/CONSCIOUSNESS: Yes awake HENMT: COMMON NORMALS: oropharynx normal Neck/C-Spine: COMMON NORMALS: no JVD Resp: COMMON NORMALS: normal respiratory effort and clear to auscultation bilaterally AUSCULTATION: clear to auscultation bilaterally, rhonchi and wheezes left lower Cardio: COMMON NORMALS: no JVD, regular rhythm, S1 normal heart sound present, S2 normal heart sound present and No murmurs present (Cardio) RHYTHM: regular rhythm HEART SOUNDS: S1 normal heart sound present and S2 normal heart sound present GI: COMMON NORMALS: Normal to inspection, nondistended, normoactive bowel sounds present, Soft to palpation and non-tender PALPATION: Yes Soft to palpation Extremity: COMMON NORMALS: no joint enlargement and no pedal edema N ARRATIVE EXTREMITY EXAM: Severe left ankle tenderness. No redness, open wounds, fluctuance. OTHER: Examined other joints, no pain or swelling. Neuro: COMMON NORMALS: patient oriented x3 and moves all extremities S ENSORIUM/ORIENTATION: Yes alert Skin: COMMON NORMALS: no rashes or lesions noted GENERAL SKIN EXAM: no rashes or lesions noted OTHER: Urinary Catheter Management: Love: Cath Placed During This Visit: yes Reason for Continuing Indwelling Catheter: Accurate Measurement of Urinary Output in Critically Ill Patients Urinary Catheter Date of Insertion: 11/11/23 Urinary Catheter Time of Insertion: 06:18 Data 11/24/23 03:27 11/24/23 03:27 Micro: Microbiology 11/20/23 16:12 Gram Stain - Final Ankle - Aspirate Wound Culture - Final A&P Assessment and plan (1) Acute left ankle pain: With concerns for septic arthritis versus gout. Appreciate podiatry recommendations. Post joint washout on 11/21. Cultures appreciated with no organisms on Gram stain. Patient currently broadly at covered with empiric antibiotic. Fluid study shows white count to be more than 52,000. Crystal studies awaited (2) Sepsis: Patient presents with sepsis presumably from his right lower extremity cellulitis. Sepsis has resolved. Septic shock has resolved. Patient continues to have leukocytosis, severe anemia with borderline blood pressures and tachycardia. Maintain mean artery pressure over 65. Maintain saturation over 90%. Strict input output charting, daily weights. (3) Necrotizing fasciitis due to Streptococcus pyogenes: (4) Cellulitis: Patient with evidence of right lower extremity cellulitis. Post debridement. Follow-up blood culture, wound culture. Wound culture growing group A strep, Staph aureus and Enterobacter. Patient has been on broad-spectrum antibiotics for more than 7 days. Currently on clindamycin, Levaquin and meropenem. (5) Status post excisional debridement: (6) Anemia associated with acute blood loss: This is secondary to upper GI bleed. Appreciate surgical recommendations. Post endoscopy. 11/12 showed gastric ulcers. Hemoglobin overall stable over 8. Currently 8.2. Continue with Protonix twice daily. Add Carafate before meals and at bedtime. Hold off on anticoagulation. Till now patient has received 4 units of blood transfusion and 1 unit of FFP. (7) ALTA (acute kidney injury): Strict improper charting, daily weights. Creatinine stable at 1.5 for now. Monitor BMP in evening. Replace Love. Has persistent hyponatremia with sodium around 150. (8) Hypernatremia: Sodium level around 150. Most likely in setting of poor oral intake. Fluid as above. Repeat BMP in evening. (9) Hypoxia: Most likely in setting of poor inspiratory response. High concerns for aspiration pneumonitis as well. Continue n.p.o. for now. Will plan for speech evaluation. Oxygen supplementation keeping saturation over 88%. Aggressive pulmonary toilet. Out of bed to chair. Continue with chest vest and incentive spirometry. Monitor fluid status. IV Lasix 40 mg today. Keep net euvolemic. Along with Lasix for now we will start patient on D5 NS at 50 cc/h with overal fluid at 75 cc/h. Continue with Pulmicort twice daily, DuoNebs every 6 hour. Will wean down Solu-Medrol to 30 mg every 12 hourly from tomorrow. (10) Pulmonary emphysema: (11) COPD (chronic obstructive pulmonary disease): Qualifiers: COPD type: unspecified COPD Qualified Code(s): J44.9 - Chronic obstructive pulmonary disease, unspecified (12) LBBB (left bundle branch block): Having intermittent episodes of nonsustained V. tach. Does have history of intermittent LBP in the past. Increase dose of metoprolol to 50 mg twice daily. Telemetry. Monitor electrolytes. (13) NSVT (nonsustained ventricular tachycardia): (14) Acute encephalopathy: Seems to be improving. Patient is out of bed to chair. Continue to monitor. Precedex if needed. Otherwise can add Xanax 0.25 mg nightly as needed. (15) Physical deconditioning: Plan Plan for the day: Appreciate culture results. Blood cultures negative. Switch antibiotics to cefazolin 2 g IV every 8 hourly. For now we will hold off on further Levaquin, clindamycin and meropenem. Will consult ID. Given concern for septic arthritis most likely patient will need up to 6 weeks of IV antibiotics. Plan for PICC line placement. Remove central line. Increase metoprolol to 50 mg twice daily. Continue with telemonitoring. Goal blood pressure less than 140/90 mmHg with mean over 65. Wean Solu-Medrol tomorrow to 30 mg every 12 hourly. Start D5 NS at 50 cc/h. Overall fluid at 75 cc/h. Watch for fluid overload. Will give dose of Lasix accordingly. Repeat BMP in evening. Remove contact precautions as per confirmation with infection control nurse. Currently on precautions for history of necrotizing fasciitis. Transfer to [facility]. Continue with modified diet. Out of bed to chair. PT Analgesia:Dilaudid 1 mg every 6 hours orally, 0.4 every 4 hours as needed Glycemic control: Not needed. Nutrition: NPO. Continue with TPN. Repeat speech evaluation. CODE STATUS:Discussed in detail with the patient. Son will be the DPOA. Patient would want to remain full code for now. But does not want to remain on life support for long. PUD prophylaxis: Full dose Protonix twice daily DVT prophylaxis: SCDs. Hold off on medical prophylaxis given GI bleed Discharge planning: If patient continues to remain on high oxygen supplementation patient would benefit from [facility] otherwise if oxygen supplementation less than 6 liters can plan to transition to SNF. This documentation was created by [employer] technical delivery manager software. Every effort was made to ensure accuracy of technical delivery manager. Any obvious errors or omissions should be clarified with the author of the document. Attestations 2 Medical Necessity Statement*: Requires further hospitalization for management of sepsis in setting of necrotizing fasciitis, left ankle arthritis versus septic joint, severe physical deconditioning, nonsustained V. tach while safe discharge planning resort Diagnoses Acute left ankle pain M25.572 Sepsis A41.9 Necrotizing fasciitis due to Streptococcus pyogenes M72.6; B95.0 Cellulitis L03.90 Status post excisional debridement Z98.890 Anemia associated with acute blood loss D62 ALTA (acute kidney injury) N17.9 Hypernatremia E87.0 Hypoxia R09.02 Pulmonary emphysema J43.9 Chronic obstructive pulmonary disease, unspecified COPD type J44.9 COPD type: unspecified COPD LBBB (left bundle branch block) I44.7 NSVT (nonsustained ventricular tachycardia) I47.29 Acute encephalopathy G93.40 Physical deconditioning R53.81
--- NOTE | 2023-11-24 17:20 | PM.CONSULT ---
Providers/Reason For Consult Consulting Physician/Specialty*: Bernadette Metcalf MD / Infectious disease Reason for Consult*: septic arthritis foot/ necrotizing fascitis Requesting Physician: Rai Wheeler MD Attending Physician: Rai Wheeler MD Primary Care Provider: Jason Harper DO History of Present Illness History of Present Illness Peter Herrmann is a 67 year old male with significant past medical history of class III CHF, COPD who si supposed to be on home oxygen , hypertension-admitted to hospital for confusion on 11/11/2023. He was in septic shock related to necrotizing fascitis. Patient had initially presented to urgent care on November 05 2023 for right lower extremity swelling redness which started 5 days prior to his presentation there. He was diagnosed with cellulitis of the right lower extremity and started on Bactrim DS 2 tabs twice daily for 5 days and also given a prescription for Lasix 80 mg twice daily for 7 days. He presented to the hospital on November 11, 2023 with worsening of the right lower extremity cellulitis, was found to have acute renal failure with creatinine of 4.7, hyperkalemia. He had signs of endorgan dysfunction with acute encephalopathy and ALTA. He was started on antibiotic treatment with vancomycin and Zosyn. He was taken to the ICU upon admission. Hospital course has been complicated by GI bleed for which he underwent EGD which showed acute gastric ulcer. He received debridement over his right lower extremity. There were 3 discrete wounds originally in the anterolateral and posterior area of the leg. Upon evaluation in the OR these wounds were noted to be superficial with underlying tunneling and connection between all the wounds. Underlying skin was completely devitalized and he underwent debridement with final wound dimensions of 13 x 13 x 1 cm. And spite of debridement he continued to have significant leukocytosis and intermittent fevers. He was also developing tenderness to palpation at the left ankle. Arthrocentesis was performed and purulent fluid was obtained from the joint. He underwent left ankle arthroscopy with I&D on November 21, 2023. Per review of operative note arthrotomy was performed and purulence was expressed from the ankle joint. Following this procedure patient has defervesced and leukocytosis is improving. Other notable events include COPD exacerbation for which she is currently on prednisone. There was also potential concern for aspiration pneumonitis. CT neck was performed on November 22, 2023 for dysphagia, enlarged tonsils were encountered. Infectious disease consult was sought for antibiotic recommendations and long-term outpatient treatment. Review of Systems General: Reports: 10 or more systems reviewed and unremarkable except in HPI and below Const: Denies: fever(s), chills or body aches Eyes: Denies: change in vision, blurry vision or photophobia ENMT: Reports: hoarseness; Denies: throat pain, enlarged tonsils, odynophagia or nasal congestion Card: Denies: chest pain, palpitations, irregular heart rhythm, edema, swelling of feet/ankles, lightheadedness, pre-syncope, dyspnea on exertion or orthopnea Resp: Denies: dyspnea, productive cough, non-productive cough, wheezing, stridor, pain on inspiration, change in phlegm color, hemoptysis or chest congestion GI: Denies: abdominal pain, nausea, vomiting, hematemesis, coffee ground emesis, dysphagia, heartburn, diarrhea, constipation, GI cramping, change in stool character, hematochezia or melena : Denies: flank pain, dysuria, urinary frequency, urinary urgency, urinary hesitancy or hematuria Musc: Denies: neck pain, back pain, extremity pain, joint swelling, joint warmth or deformity Neuro: Denies: headache(s), numbness in extremities, weakness in extremities, sensory changes, difficulty walking, frequent falls, dizziness, vertigo, behavioral changes, Slurred speech present or seizure-like activity Psych: Denies: anxiety, depression, suicidal ideation or homicidal ideation Endo: Denies: polyuria, polydipsia, tired all the time, cold intolerance or hot flashes Valeriy/Lymph: Denies: easy bruising or easy bleeding Medications/Allergies Home Medications Medication Instructions Recorded Confirmed Last Taken Type albuterol sulfate 90 mcg/actuation 2 puff inhalation Q6H PRN 02/01/21 11/11/23 02/11/21 History aerosol inhaler (ProAir HFA) Shortness Of Breath aspirin 81 mg tablet,delayed 81 mg PO QAM 02/01/21 11/11/23 11/10/23 History release fluticasone propionate 50 1 spray intranasal DAILY 06/06/23 11/11/23 06/06/23 History mcg/actuation nasal spray,suspension naproxen sodium 220 mg capsule 440 mg PO BID PRN Pain 06/06/23 11/11/23 Unknown History (Aleve) furosemide 40 mg tablet 40 mg PO BID 10/23/23 11/11/23 11/10/23 History potassium chloride 10 mEq 10 meq PO BID 10/23/23 11/11/23 11/10/23 History tablet,extended release amlodipine 10 mg tablet 10 mg PO DAILY #90 tabs 11/13/23 11/15/23 Unknown Rx budesonide 160 mcg-glycopyr 9 2 inh inhalation BID #10.7 grams 11/13/23 11/15/23 Unknown Rx mcg-formot 4.8 mcg/actuation HFA inhaler (Breztri Aerosphere) metoprolol tartrate 50 mg tablet 50 mg PO TID #90 tabs 11/13/23 11/15/23 Unknown Rx furosemide 80 mg tablet 80 mg PO BID 11/15/23 11/15/23 Unknown History sulfamethoxazole 800 2 tab PO BID 11/15/23 11/15/23 Unknown History mg-trimethoprim 160 mg tablet Allergies Allergy/AdvReac Type Severity Reaction Status Date / Time acetaminophen [From Tylenol] Allergy Unknown Verified 11/11/23 05:16 Opioids - Morphine Analogues Allergy ADR-Halluci Verified 11/11/23 05:16 nating Current Medications Generic Name Dose Route Start Last Admin Trade Name Freq PRN Reason Stop Dose Admin Budesonide 0.5 mg 11/13/23 08:00 11/24/23 07:21 Budesonide 0.5 Mg/2 Ml Neb INHALATION 0.5 mg BID.RESPIRATORY FREYA Administration Heparin Sodium (Porcine) 5,000 unit 11/18/23 21:00 11/24/23 09:00 Heparin 5,000 Unit/Ml Inj 1 Ml SUBCUT 5,000 unit Q12H FREYA Administration Dexmedetomidine/Sodium Chloride 400 mcg in 100 mls @ 0 mls/hr 11/14/23 20:15 11/23/23 06:01 Precedex IV 0 mcg/kg/hr .Q0M FREYA 0 mls/hr Titration Protocol Per Protocol Amino Acids/Electrolytes 1,000 mls @ 50 mls/hr 11/23/23 18:00 11/24/23 14:02 Clinimix E 5%-20% IV Not Given .Q20H FREYA Protocol Cefazolin Sodium 2,000 mg/ 50 mls @ 100 mls/hr 11/24/23 10:45 11/24/23 13:11 Sodium Chloride IV Infused Q8H FREYA Infusion Protocol Dextrose/Sodium Chloride 1,000 mls @ 50 mls/hr 11/24/23 11:00 11/24/23 11:46 Dextrose 5%-Sod Chloride 0.9% IV 37.5 mls/hr .Q20H FREYA Infusion Ipratropium [place] 0.5 mg 11/15/23 12:00 11/24/23 15:03 Ipratropium 0.5 Mg/2.5 Ml Neb INHALATION 0.5 mg Q4H.RESPIRATORY FREYA Administration Lanolin 1 applic 11/11/23 15:27 11/21/23 17:09 Lanolin Oint 7 Gm TOPICAL 1 applic PRN PRN Administration DRYNESS Levalbuterol HCl 0.63 mg 11/15/23 12:00 11/24/23 15:03 Levalbuterol 0.63 Mg/3 Ml Neb INHALATION 0.63 mg Q4H.RESPIRATORY FREYA Administration Lidocaine 1 patch 11/19/23 21:00 11/24/23 08:59 Lidocaine 5% Patch TOPICAL 1 patch [id number] FREYA Administration Methylprednisolone Sodium Succinate 30 mg 11/22/23 10:00 11/24/23 09:00 Methylprednisolone Sod Succ 40 Mg/Ml Inj IVP 30 mg Q8H FREYA Administration Multivitamins Therapeutic 1 tab 11/16/23 11:50 11/24/23 09:00 Multivitamin Therapeutic Tablet PO 1 tab DAILY FREYA Administration Nystatin 100,000 unit 11/16/23 11:50 11/24/23 16:26 Nystatin 100,000 Unit/Ml Udc 5 Ml PO 100,000 unit QID FREYA Administration Ondansetron HCl 4 mg 11/11/23 13:22 11/17/23 19:12 Ondansetron 2 Mg/Ml Sdv 2 Ml IVP 4 mg Q6H PRN Administration NAUSEA AND VOMITING Pantoprazole Sodium 40 mg 11/11/23 18:30 11/24/23 06:16 Pantoprazole 40 Mg Sdv IVP 40 mg Q12H FREYA Administration Promethazine HCl 12.5 mg 11/11/23 20:54 11/12/23 23:29 Promethazine 25 Mg/Ml Sdv 1 Ml IM 12.5 mg Q6H PRN Administration NAUSEA Saliva Substitute 1 spray 11/13/23 14:53 11/21/23 17:10 Saliva Stimulant Hardy 30 Ml Btl MUCOUS MEM 1 spray PRN PRN Administration DRY MOUTH Sucralfate 1 gm 11/15/23 12:00 11/24/23 16:27 Sucralfate 1 Gm Tablet PO 1 gm AC&BEDTIME FREYA Administration Trazodone HCl 25 mg 11/16/23 21:45 11/23/23 20:14 Trazodone 50 Mg Tablet PO 25 mg BEDTIME FREYA Administration Additional Medication Information Zosyn 11/11-11/14 meropenem 11/14-current Vancomycin 11/11-11/14 Clindamycin 11/15-current Levaquin 11/18-current Methylprednisone 30 mg iv q8h ; 11/22-current PFSH Acute PFSH: Medical History Legionella pneumonia CHF (congestive heart failure), NYHA class III LBBB (left bundle branch block) COPD (chronic obstructive pulmonary disease) HTN (hypertension) Surgical History No history of previous surgery Family History Other Hypertension Denies family history of Diabetes CAD (coronary artery disease) Clotting disorder Dementia Chronic kidney disease (CKD) Suicide Anesthesia complication Bleeding disorder Lung disease Cancer Stroke Social History Smoking and tobacco/nicotine status: former use of tobacco/nicotine Quit status (tobacco/nicotine): has quit using Alcohol intake: former Substance/Drug Use: current Other substance/drug use details: No inhalation. Housing: House Vitals/I&O/Wt Last Vital Signs Temp 99.2 F 11/24/23 05:00 Pulse 90 11/24/23 16:00 Resp 20 H 11/24/23 16:00 BP 140/77 11/24/23 16:00 Pulse Ox 97 11/24/23 16:00 O2 Del Method Nasal Cannula 11/24/23 16:00 O2 Flow Rate 8 11/24/23 16:00 FiO2 50 11/24/23 07:26 11/24/23 11/24/23 11/24/23 06:59 14:59 22:59 Intake Total 50 / 546.25 372.708 / 372.708 Output Total 650 / 825 Balance -600 / -278.75 372.708 / 372.708 Weight last 48 hrs Weight 102.058 kg Weight 102.965 kg Physical Exam Narrative: General: No acute distress, AO x3 HEENT: PERRLA, pupils bilaterally equal and reactive, pallors not present Chest: Normal vesicular breath sounds, no added sounds, equal good air entry bilaterally CVS: S1-S2 regular, no murmurs, no tachycardia, no gallops, no rubs Abdomen: Soft, nontender, no organomegaly, bowel sounds present Neuro: No focal deficits, no facial deformity, AO x3, power 5/5 in all limbs wound pictures reviewed from hospitalist notes Urinary Catheter Management: Love: Cath Placed During This Visit: yes Reason for Continuing Indwelling Catheter: Accurate Measurement of Urinary Output in Critically Ill Patients Urinary Catheter Date of Insertion: 11/11/23 Urinary Catheter Time of Insertion: 06:18 Data 11/25/23 03:30 11/25/23 03:30 Micro: Microbiology 11/20/23 16:12 Gram Stain - Final Ankle - Aspirate Wound Culture - Final Spec #: [id number] Rashel: 11/20/23 Status: COMP Req #: [id number] Recd: 11/20/[address]: Jomar Fong DPM Src: Ankle SpDesc: Aspirate Ordered: WC and GS Comments: Comment left (from synovial fluid aspirate, not OR) Procedure Result Verified Site Gram Stain Final 11/21/23 Result MODERATE POLYMORPHONUCLEAR NEUTROPHILS NO ORGANISMS SEEN Wound Culture Final 11/23/23-1309 NO GROWTH ON DAY 3 Wound Culture Preliminary (changed) 11/22/23-6 NO GROWTH AT 36 HOURS Wound Culture Preliminary (changed) 11/21/23-1508 NO GROWTH AT 18-24 HOURS Spec #: [id number] Rashel: 11/18/23-2112 Status: COMP Req #: [id number] Recd: 11/18/[address]: Ochoa Oliver MD Src: Blood SpDesc: Ordered: Bld Culture Procedure Result Verified Site Blood Cultures ([facility]) Final 11/25/23-1615 QD SEE NOTE CULTURE, BLOOD Micro Number: [id number] Test Status: Preliminary Specimen Source: Blood 2 Specimen Quality: Suboptimal Result: No growth to date. Culture is continuously monitored for a total of 120 hours incubation. A change in status will result in a phone report followed by an updated printed culture report. COMMENT: Inspection of blood culture bottles indicates that an inadequate volume of blood may have been collected for the detection of sepsis. TRANSPORT MEDIA: Aerobic and anaerobic bottle received. THIS TEST WAS PERFORMED AT: [facility] [address] [place] [address] SALLY CARD MD CULTURE, BLOOD Micro Number: [id number] Test Status: Final Specimen Source: Blood 2 Specimen Quality: Suboptimal Result: No growth after 5 days COMMENT: Inspection of blood culture bottles indicates that an inadequate volume of blood may have been collected for the detection of sepsis. Spec #: [id number] Rashel: 11/18/23 Status: COMP Req #: [id number] Recd: 11/18/[address]: Ochoa Oliver MD Src: Blood SpDesc: Ordered: Bld Culture Procedure Result Verified Site Blood Cultures ([employer]) Final 11/25/23-1615 QD SEE NOTE CULTURE, BLOOD Micro Number: [id number] Test Status: Preliminary Specimen Source: Blood 1 Specimen Quality: Adequate Result: No growth after 5 days. Spec #: [id number] Rashel: 11/14/23 Status: COMP Req #: [id number] Recd: 11/14/[address]: Brent Beasley Src: Leg SpDesc: #2 Ordered: WC and GS Comments: Comment right lower extremity wound culture Procedure Result Verified Site Gram Stain Final 11/14/23 Result RARE WHITE BLOOD CELLS NO ORGANISMS SEEN Wound Culture Final 11/17/23-1226 Organism 1 Strep pyogenes (grp a) Growth MODERATE Strep Typing Strep Typing Organism 2 Staphylococcus aureus Growth FEW DAY 3 SWAB CRITICAL RESULT YES/NO: YES CRITICAL CALLED BY: RT TO AND READ BACK BY: CLAY DATE: 11/15/23 TIME: 1342 S PYOG (A) S aureus M.I.C. RX M.I.C. RX --------- ------ --------- ------ * Amoxicillin/Clavulanate <=4/2 S * Ampicillin <=0.06 S <=2 R * Ampicillin/Sulbactam <=8/4 S * Azithromycin <=0.25 S * Cefepime <=0.25 S * Ceftriaxone <=0.25 S <=8 S * Ciprofloxacin <=1 S * Clindamycin <=0.06 S <=0.5 S * Erythromycin <=0.06 S <=0.5 S * Gentamicin <=4 S * Levofloxacin 0.5 S <=1 S * Linezolid 4 S * Oxacillin 0.5 S * Penicillin <=0.03 S >8 R * Rifampin <=1 S * Tetracycline <=0.5 S <=4 S * Trimethoprim/Sulfamethoxazole <=0.5/9.5 S Vancomycin 0.5 S 2 S Daptomycin 1 S Spec #: [id number] Rashel: 11/14/23 Status: COMP Req #: [id number] Recd: 11/14/[address]: Brent Beasley Src: Leg SpDc: #3 Ordered: Tissue Cult Comments: Comment right lower extremity wound culture with tissue Procedure Result Verified Site Gram Stain Final 11/14/23 Result MODERATE GRAM POSITIVE COCCI IN CHAINS MODERATE WHITE BLOOD CELLS Tissue Culture Final 11/17/23 Organism 1 Strep pyogenes (grp a) Growth HEAVY Strep Typing Strep Typing Organism 2 Staphylococcus aureus Growth FEW Organism 3 Enterobacter cloacae Growth FEW DAY 3 CRITICAL RESULT YES/NO: YES CRITICAL CALLED BY: RT TO AND READ BACK BY: CLAY DATE: 11/15/23 TIME: 1342 S PYOG (A) S aureus E cloacae M.I.C. RX M.I.C. RX M.I.C. RX --------- ------ --------- ------ --------- ------ * Amikacin <=16 S * Amoxicillin/Clavulanate <=4/2 S >16/8 R * Ampicillin <=0.06 S <=2 R >16 R * Ampicillin/Sulbactam <=8/4 S >16/8 R * Azithromycin <=0.25 S * Aztreonam <=4 S * Cefepime <=0.25 S <=8 S * Ceftriaxone <=0.25 S <=8 S <=1 S * Cefuroxime 16 R * Ciprofloxacin <=1 S <=1 S * Clindamycin <=0.06 S <=0.5 S * Erythromycin <=0.06 S <=0.5 S * Gentamicin <=4 S <=2 S * Imipenem <=1 S * Levofloxacin 0.5 S <=1 S <=2 S * Linezolid 4 S * Oxacillin <=0.25 S * Penicillin <=0.03 S 8 R * Rifampin <=1 S * Tetracycline <=0.5 S <=4 S >8 R * Trimethoprim/Sulfamethoxazole <=0.5/9.5 S >2/38 R Vancomycin 0.5 S 2 S * Piperacillin/Tazobactam <=16 S Daptomycin 1 S Spec #: [id number] Rashel: 11/11/23 Status: COMP Req #: [id number] Recd: 11/11/[address]: Jose Hardy DO Src: Blood SpDesc: Ordered: Bld Culture Comments: HARD STICK / PEDI BOTTLE CULTURE, BLOOD Micro Number: [id number] Test Status: Final Specimen Source: Blood set 2 Specimen Quality: Adequate Result: No growth after 5 days Spec #: [id number] Rashel: 11/11/23 Status: COMP Req #: [id number] Recd: 11/11/[address]: Jose Hardy DO Src: Blood SpDesc: Ordered: Bld Culture Procedure Result Verified Site Blood Cultures ([facility]) Final 11/17/23-1602 QD SEE NOTE CULTURE, BLOOD Micro Number: [id number] Test Status: Preliminary Specimen Source: Blood set 1 Specimen Quality: Adequate Result: No growth to date. Culture is continuously monitored for a total of 120 hours incubation. A change in status will result in a phone report followed by an updated printed culture report. TRANSPORT MEDIA: Aerobic and anaerobic bottle received. THIS TEST WAS PERFORMED AT: [facility] [address] [place] [address] SALLY CARD MD CULTURE, BLOOD Micro Number: [id number] Test Status: Final Specimen Source: Blood set 1 Specimen Quality: Adequate Result: No growth after 5 days TRANSPORT MEDIA: Aerobic and anaerobic bottle received. Spec #: [id number] Rashel: 11/11/23 Status: COMP Req #: [id number] Recd: 11/11/[address]: Chris Mederos DO Src: Urine CC SpDesc: Ordered: Procedure Result Verified Site Urine Culture Final 11/13/23 Organism 1 Escherichia coli Eliot Count 60,000 - 70,000 CFU/ml DAY 2 E coli M.I.C. RX --------- ------ * Amikacin <=16 S * Amoxicillin/Clavulanate <=8/4 S * Ampicillin >16 R * Ampicillin/Sulbactam >16/8 R * Aztreonam 8 S * Cefepime <=8 S * Ceftriaxone <=1 S * Cefuroxime <=4 S * Ciprofloxacin >2 R * Gentamicin <=2 S * Imipenem <=1 S * Levofloxacin >4 R * Nitrofurantoin <=32 S * Tetracycline <=4 S * Trimethoprim/Sulfamethoxazole <=2/38 S * Piperacillin/Tazobactam <=16 S PATH : pending A&P Assessment and plan (1) Necrotizing fasciitis due to Streptococcus pyogenes: (2) Septic arthritis: Plan Mr. Whitman is a 67-year-old male who had presented with right lower extremity necrotizing fasciitis leading to septic shock, status post debridement at first on November 14, 2023 with hospital course complicated by GI bleed, COPD exacerbation, acute on chronic hypoxic respiratory failure and septic arthritis of the left ankle joint. Cultures are available from debridement performed on November 14, 2023 These are revealing MSSA, group A streptococcus and 1 culture additionally revealing Enterobacter cloacae. Patient has been on an extended course of Zosyn/meropenem, clindamycin during the course of his admission as outlined above. And spite of broad-spectrum antimicrobial coverage he continued to have intermittent fevers and persistent leukocytosis. Further evaluation revealed acute tenderness at the left ankle joint raising concern for septic arthritis versus acute gout. Synovial fluid aspirate was performed, synovial fluid WBC count 52, 000. Low glucose was obtained. This was followed up by arthroscopy and I&D of the left ankle joint. Pus was encountered. Synovial fluid aspirate culture thus far negative to date, however difficult to interpret if truly negative given that patient had been on antibiotics for an extended time leading up to the aspiration. Patient does appear to have had a clinical improvement since undergoing the ankle I&D. OR culture N/A. Path is pending Blood culture remains negative to date. Plan: Discontinue meropenem and clindamycin and Levaquin today. Transition treatment to cefazolin 2 g IV every 8 hours in keeping with culture results from OR debridement on 11/14 At this point anticipating treatment duration of at least 6 weeks for septic arthritis.(11/20-12/31) Picc line to be placed for the same will follow pending path results will follow This documentation was created by [employer] excellence manager software. Every effort was made to ensure accuracy of excellence manager. Any obvious errors or omissions should be clarified with the author of the document. Consult Attestations Medical Necessity Statement: per admitting Coding Level of Care Code Acute Code for Chg Fwd High MDM includes number and complexity of problems actively addressed during encounter, amount and/or complexity of data reviewed/ordered and described risk of complication, morbidity or mortality of management as documented Diagnoses Necrotizing fasciitis due to Streptococcus pyogenes M72.6; B95.0 Septic arthritis M00.9
[2023-11-24] MEDS: metoprolol tartrate 25 mg Tablet 50 MG PO (18:35)
--- NOTE | 2023-11-24 18:47 | P.PN_ITS ---
Subjective 2 Subjective: Patient seen at bedside Sitting out of bed to chair Switch her to 10 L wall cannula-saturations acceptable Upset that he is not being fed-reassured that he will get speech reevaluation and will fade depending on recommendations Improving leukocytosis Infectious disease consulted and antibiotic switched to cefazolin based on sensitivities Patient transferred to stepdown Medications: Reviewed: Yes Vitals/I&O/Wt Last Vital Signs Temp 99.2 F 11/24/23 05:00 Pulse 90 11/24/23 16:00 Resp 20 H 11/24/23 16:00 BP 140/77 11/24/23 16:00 Pulse Ox 97 11/24/23 16:00 O2 Del Method Nasal Cannula 11/24/23 16:00 O2 Flow Rate 8 11/24/23 16:00 FiO2 50 11/24/23 07:26 11/24/23 11/24/23 11/24/23 06:59 14:59 22:59 Intake Total 50 / 546.25 372.708 / 372.708 Output Total 650 / 825 Balance -600 / -278.75 372.708 / 372.708 Weight last 48 hrs Weight 225 lb Weight 227 lb Physical Exam 2 Narrative: General: alert, NAD HEENT: conj clear, EOMI, PERRL, tongue appears to have sores Neck: supple, no meningismus Heme: no cervical LAP Respiratory: Inspection: No visible deformity of the chest wall Palpation: Trachea is mildly deviated to the right, bilateral symmetric expansion Percussion: Bilateral tympanic percussion note both anterior and posteriorly Auscultation: Bilateral clear to auscultation both anterior and posteriorly, no crackles wheezing or rhonchi Cardiovascular: rrr, nl s1s2, no mrg Abdomen: soft, nt, nd, no r/g, bs+ Extremities: Right lower extremity wound appears to be significantly improved and started to granulate : no CVA tenderness Skin: intact, no rash MSK: no back or neck pain Neurologic: grossly intact Urinary Catheter Management: Love: Cath Placed During This Visit: yes Reason for Continuing Indwelling Catheter: Accurate Measurement of Urinary Output in Critically Ill Patients Urinary Catheter Date of Insertion: 11/11/23 Urinary Catheter Time of Insertion: 06:18 Data 11/24/23 03:27 11/24/23 03:27 Micro: Microbiology 11/20/23 16:12 Gram Stain - Final Ankle - Aspirate Wound Culture - Final A&P Assessment and plan (1) Hypoxia: (2) CHF (congestive heart failure), NYHA class III: Qualifiers: Congestive heart failure type: systolic Congestive heart failure chronicity: chronic Qualified Code(s): I50.22 - Chronic systolic (congestive) heart failure (3) Gastric ulcer: (4) ALTA (acute kidney injury): (5) CKD (chronic kidney disease): (6) COPD (chronic obstructive pulmonary disease): (7) Smoker: (8) Pulmonary emphysema: (9) Sepsis: (10) Cellulitis: (11) Necrotizing fasciitis due to Streptococcus pyogenes: Plan # Patient who presented with septic shock on presentation secondary to E. coli UTI/necrotizing fasciitis of right lower extremity due to strep pyogenes/left ankle septic arthritis -s/p right debridement of necrotizing fasciitis. came off pressors, improving leukocytosis, -improving wound --Wound cultures grew Staph aureus, strep pyogenes, Enterococcus -However later leukocytosis started to worsen-patient still requiring high flow oxygen with mild pleural effusions-concern for pneumonia-meropenem added -urther investigations showed left ankle bursitis and abscess-s/p incision and drainage of left ankle abscess-improving leukocytosis and patient started clinically improving Covered with meropenem, clindamycin, Levaquin # COPD exacerbation -Continue scheduled nebulizations -Taper steroids based on clinical response -Patient request PFTs as outpatient -He can be discharged with Trelegy 1 puff daily # Hypoxia in patient with underlying pulmonary emphysema in patient with extensive smoking history # Bilateral pleural effusions-inpatient with history of class III NYHA CHF -Uses 2 L oxygen baseline-Currently requiring high flow nasal cannula 50% and 50 L-switch to 10 L nasal cannula- -Neck CT-revealed bilateral pleural effusions; however a more upright chest x- ray did not show significant pleural effusion; -Patient BNP is greater than 2500; echo showed normal LV function during this admission; patient net -1 L since admission; -recommended Lasix 20 Mg as needed to maintain net negative balance -Less likely empyema/parapneumonic effusion as patient is clinically improving # ALTA on CKD-renal function remained stable-continue monitoring renal parameters and urine output # Hypernatremia 150-patient is on d5w -monitor sodium # Nutrition currently on TPN; -Pending speech therapy evaluation-we can start on clear liquid diet Attestations 2 Medical Necessity Statement*: Clinically improving-still requiring 10 L supplemental oxygen-May benefit from LTAC placement Time Spent in Patient Care: Greater than 35 minutes (>than 50% of time spent in counselling and/or direct pt care on unit) . Critical Care Time: The high probability of a clinically significant, sudden or life threatening deterioration of the patient's [pulmonary, infectious disease, renal, cardiac] s ystem(s) required my full and direct attention, intervention and personal management. The critical care time is as shown. This time is in addition to time spent performing any reported procedures but includes the following: [x] Data and vital sign review and interpretation [x] Patient assessment, examination and intervention [x] Documentation [x] Medication orders and management Coding Level of Care Code Acute Code for Chg Fwd Diagnoses Hypoxia R09.02 Chronic systolic congestive heart failure, NYHA class 3 I50.22 Congestive heart failure type: systolic Congestive heart failure chronicity: chronic Gastric ulcer K25.9 ALTA (acute kidney injury) N17.9 CKD (chronic kidney disease) N18.9 COPD (chronic obstructive pulmonary disease) J44.9 Smoker F17.200 Pulmonary emphysema J43.9 Sepsis A41.9 Cellulitis L03.90 Necrotizing fasciitis due to Streptococcus pyogenes M72.6; B95.0 Time Spent (min) 45
[2023-11-24] MEDS: trazodone 50 mg Tablet 25 MG PO (20:29)
[2023-11-25] VITALS (19 sets, daily range): BP systolic 137–153; BP diastolic 69–78; PULSE 60–86; RESP 18–24; TEMP 36.4–36.7; O2SAT 92–98; BMI 34.2
[2023-11-25] MEDS: methylPREDNISolone sod succ 40 mg/mL INJ 30 MG IVP ×3 (03:00→18:09)
[2023-11-25] MEDS: ceFAZolin 2,000 MG in sodium chloride 0.9% (plus) 50 ML 100 MG IV ×3 (03:01→18:10)
[2023-11-25 03:55] LABS: Basophils % 0.1 %; Hematocrit 27.5 % (37-53); Lymphocytes # 0.5 10^3/uL (0.8-4.8); Lymphocytes % 2.8 %; Mean Corpuscular HGB Conc 29.1 g/dL (30-55); Mean Corpuscular Hemoglobin 28.2 pg (27-33); Mean Corpuscular Volume 96.8 fl (82-101); Mean Platelet Volume 11.5 fL (7.4-10.4); Monocytes # 0.7 10^3/uL (0.2-0.9); Monocytes % 4.3 %; Neutrophils # 15.22 10^3/uL (1.8-7.7); Neutrophils % 92.3 %; Nucleated Red Blood Cells % 0 %; Platelet Count 379 10^3/cmm (157-399); Red Blood Count 2.84 10^6/uL (3.85-5.65); Red Cell Distribution Width 18.3 % (12.1-15.1); White Blood Count 16.49 10^3/uL (3.29-11.43)
[2023-11-25 04:28] LABS: Alanine Aminotransferase 14 U/L (0-41); Alkaline Phosphatase 78 U/L (40-130); Anion Gap 11.2 (5-19); Aspartate Amino Transferase 26 U/L (0-40); Blood Urea Nitrogen 54 mg/dL (8-23); Calcium 8.7 mg/dL (8.5-10.5); Carbon Dioxide 31 mmol/L (22-29); Chloride 112 mmol/L (98-107); Globulin 3.9 g/dL (1.3-4.6); Glomerular Filtration Rate 50.7 mL/min (90-130); Glucose 235 mg/dL (65-115); Osmolality Calculated 332 mOsm/kg (285-295); Potassium 4.2 mmol/L (3.5-5.1); Sodium 150 mmol/L (136-145); Total Bilirubin 0.2 mg/dL (0.15-1.2); Total Protein 6.9 g/dL (6.6-8.7)
[2023-11-25] MEDS: dextrose 5%-sod chloride 0.9% 1,000 ML 37.5 ML IV (05:52)
[2023-11-25] MEDS: pantoprazole 40 mg SDV IVP ×2 (05:52→18:10)
[2023-11-25] MEDS: sucralfate 1 gm Tablet PO ×4 (05:52→21:17)
--- NOTE | 2023-11-25 05:56 | PC.RESP ---
RT was with critical patient, missed 0400 tx. patient is resting comfortably at this time with no resp distress noted.
[2023-11-25] MEDS: multivitamin therapeutic Tablet 1 TAB PO (08:21)
[2023-11-25] MEDS: nystatin 100,000 unit/mL UDC 5 mL 100000 UNIT PO ×4 (08:22→20:14)
[2023-11-25] MEDS: metoprolol tartrate 25 mg Tablet 50 MG PO ×2 (08:22→18:09)
[2023-11-25] MEDS: heparin 5,000 unit/mL INJ 1 mL 5000 UNIT SUBCUT ×2 (08:23→20:14)
[2023-11-25] MEDS: lidocaine 5% Patch 1 PATCH TOPICAL (08:23)
[2023-11-25] MEDS: budesonide 0.5 mg/2 mL Neb INHALATION ×2 (08:44→19:55)
[2023-11-25] MEDS: ipratropium 0.5 mg/2.5 mL Neb INHALATION ×4 (08:44→19:55)
[2023-11-25] MEDS: levalbuterol 0.63 mg/3 mL Neb INHALATION ×4 (08:44→19:55)
[2023-11-25] MEDS: AA-Dex 5%-20% w/Lytes 1,000 ML 37.5 ML IV (10:02)
--- NOTE | 2023-11-25 10:48 | XR_ITS ---
WS: [id number] XR chest 1V portable [id number] REASON FOR EXAM: PICC LINE INSERTION FINDINGS: Left arm PICC line placement. The tip of the PICC line is within the superior vena cava at the junction of the middle and distal th irds approximately 4 cm distal to the innominate caval junction. Apparently this is the maximum lengt h of the catheter the catheter should be functional at this level. There is a right internal jugular central venous line with the tip at the cavoatrial junction. Reticular interstitial lung opacities again noted in the lower lung bauman and right middle lobe. Ate lectasis in the lung bases. Stable appearance compared to 11/22/2023. IMPRESSION: PICC line placement as above. PICC line position was discussed with the charge histotechnologist over the phone at 12:20 p.m. Otherwise stable chest.
--- NOTE | 2023-11-25 10:48 | SUR.PREOP ---
TIME OUT FOR PICC LINE INSERTION
--- NOTE | 2023-11-25 11:34 | PC.NURSE ---
Dr Wheeler ordered patients D5W to infuse at 30ml/hr and his TPN to infuse at 40ml/hr. Provider does not want patient to receive more than 75ml/hr.
--- NOTE | 2023-11-25 14:12 | P.PN_ITS ---
Subjective 2 Subjective: No acute vents overnight. Seen in [facility] today. Patient sitting up in bed. Trying to get a PICC line. Patient is down to 4 to 5 L of regular nasal cannula saturating more than 90%. States he would want to try to eat as as soon as possible. Getting frustrated that he is not able to eat. Denies any nausea, vomiting, headache. Medications: Reviewed: Yes Vitals/I&O/Wt Last Vital Signs Temp 98.1 F 11/25/23 12:00 Pulse 69 11/25/23 12:00 Resp 24 H 11/25/23 12:00 BP 137/74 11/25/23 12:00 Pulse Ox 93 11/25/23 12:00 O2 Del Method Nasal Cannula 11/25/23 12:00 O2 Flow Rate 4 11/25/23 12:00 FiO2 50 11/24/23 07:26 11/24/23 11/25/23 11/25/23 22:59 06:59 14:59 Intake Total 50 / 861.249 1386.75 / 9455.626 7287.542 / 1103.542 Output Total 1600 / 1600 400 / 400 Balance 50 / 422.708 -151.25 / 271.458 703.542 / 703.542 Weight last 48 hrs Weight 99.053 kg Weight 102.058 kg Physical Exam 2 Narrative: Sitting up in bed Const: COMMON NORMALS: patient oriented x3 and alert GENERAL APPEARANCE: c ooperative ORIENTATION/CONSCIOUSNESS: Yes awake HENMT: COMMON NORMALS: oropharynx normal Neck/C-Spine: COMMON NORMALS: no JVD Resp: COMMON NORMALS: normal respiratory effort and clear to auscultation bilaterally AUSCULTATION: clear to auscultation bilaterally, rhonchi and wheezes left lower Cardio: COMMON NORMALS: no JVD, regular rhythm, S1 normal heart sound present, S2 normal heart sound present and No murmurs present (Cardio) RHYTHM: regular rhythm HEART SOUNDS: S1 normal heart sound present and S2 normal heart sound present GI: COMMON NORMALS: Normal to inspection, nondistended, normoactive bowel sounds present, Soft to palpation and non-tender PALPATION: Yes Soft to palpation Extremity: COMMON NORMALS: no joint enlargement and no pedal edema N ARRATIVE EXTREMITY EXAM: Severe left ankle tenderness. No redness, open wounds, fluctuance. OTHER: Examined other joints, no pain or swelling. Neuro: COMMON NORMALS: patient oriented x3 and moves all extremities S ENSORIUM/ORIENTATION: Yes alert Skin: COMMON NORMALS: no rashes or lesions noted GENERAL SKIN EXAM: no rashes or lesions noted OTHER: Urinary Catheter Management: Love: Cath Placed During This Visit: yes Reason for Continuing Indwelling Catheter: Accurate Measurement of Urinary Output in Critically Ill Patients Urinary Catheter Date of Insertion: 11/11/23 Urinary Catheter Time of Insertion: 06:18 Data 11/25/23 03:30 11/25/23 03:30 A&P Assessment and plan (1) Acute left ankle pain: With concerns for septic arthritis versus gout. Appreciate podiatry recommendations. Post joint washout on 11/21. Cultures appreciated with no organisms on Gram stain. Patient currently broadly at covered with empiric antibiotic. Fluid study shows white count to be more than 52,000. Crystal studies awaited (2) Sepsis: Patient presents with sepsis presumably from his right lower extremity cellulitis. Sepsis has resolved. Septic shock has resolved. Patient continues to have leukocytosis, severe anemia with borderline blood pressures and tachycardia. Maintain mean artery pressure over 65. Maintain saturation over 90%. Strict input output charting, daily weights. (3) Necrotizing fasciitis due to Streptococcus pyogenes: (4) Cellulitis: Patient with evidence of right lower extremity cellulitis. Post debridement. Follow-up blood culture, wound culture. Wound culture growing group A strep, Staph aureus and Enterobacter. Patient has been on broad-spectrum antibiotics for more than 7 days. Currently on clindamycin, Levaquin and meropenem. (5) Status post excisional debridement: (6) Anemia associated with acute blood loss: This is secondary to upper GI bleed. Appreciate surgical recommendations. Post endoscopy. 11/12 showed gastric ulcers. Hemoglobin overall stable over 8. Currently 8.2. Continue with Protonix twice daily. Add Carafate before meals and at bedtime. Hold off on anticoagulation. Till now patient has received 4 units of blood transfusion and 1 unit of FFP. (7) ALTA (acute kidney injury): Strict improper charting, daily weights. Creatinine stable at 1.5 for now. Monitor BMP in evening. Replace Love. Has persistent hyponatremia with sodium around 150. (8) Hypernatremia: Sodium level around 150. Most likely in setting of poor oral intake. Fluid as above. Repeat BMP in evening. (9) Hypoxia: Most likely in setting of poor inspiratory response. High concerns for aspiration pneumonitis as well. Continue n.p.o. for now. Will plan for speech evaluation. Oxygen supplementation keeping saturation over 88%. Aggressive pulmonary toilet. Out of bed to chair. Continue with chest vest and incentive spirometry. Monitor fluid status. IV Lasix 40 mg today. Keep net euvolemic. Along with Lasix for now we will start patient on D5 NS at 50 cc/h with overal fluid at 75 cc/h. Continue with Pulmicort twice daily, DuoNebs every 6 hour. Will wean down Solu-Medrol to 30 mg every 12 hourly from tomorrow. (10) Pulmonary emphysema: (11) COPD (chronic obstructive pulmonary disease): Qualifiers: COPD type: unspecified COPD Qualified Code(s): J44.9 - Chronic obstructive pulmonary disease, unspecified (12) LBBB (left bundle branch block): Having intermittent episodes of nonsustained V. tach. Does have history of intermittent LBP in the past. Increase dose of metoprolol to 50 mg twice daily. Telemetry. Monitor electrolytes. (13) NSVT (nonsustained ventricular tachycardia): (14) Acute encephalopathy: Seems to be improving. Patient is out of bed to chair. Continue to monitor. Precedex if needed. Otherwise can add Xanax 0.25 mg nightly as needed. (15) Physical deconditioning: Plan Plan for the day: High risk of aspiration. Follow-up speech therapy and advance diet accordingly. For now keep NPO. Oxygen supplementation keeping saturation more than 90%. Will wean accordingly. Aggressive pulmonary toilet with I-S and Acapella. Continue with nebulization treatment. Continue with IV cefazolin 2 g every 8 hourly for 6 weeks post debridement. Appreciate ID recommendations. Solu-Medrol weaned down to 30 mg twice daily. Continue with D5 NS along with TPN overall at 75 cc/h. IV Lasix 40 mg one-time. Monitor BMP daily. Persistently hypernatremic but sodium level stable at 150. Continue with out of bed to chair. Appreciate pulmonology recommendations. Analgesia:Dilaudid 1 mg every 6 hours orally, 0.4 every 4 hours as needed Glycemic control: Not needed. Nutrition: NPO. Continue with TPN. Repeat speech evaluation. CODE STATUS:Discussed in detail with the patient. Son will be the DPOA. Patient would want to remain full code for now. But does not want to remain on life support for long. PUD prophylaxis: Full dose Protonix twice daily DVT prophylaxis: SCDs. Hold off on medical prophylaxis given GI bleed Discharge planning: If patient continues to remain on high oxygen supplementation patient would benefit from [facility] otherwise if oxygen supplementation less than 6 liters can plan to transition to SNF. This documentation was created by [employer] head of strategy software. Every effort was made to ensure accuracy of head of strategy. Any obvious errors or omissions should be clarified with the author of the document. Attestations 2 Medical Necessity Statement*: Requires further hospitalization for management of hypoxic respiratory failure in setting of aspiration pneumonitis, necrotizing fasciitis post debridement, septic ankle joint post debridement, hypernatremia with ALTA while outpatient antibiotics and safe discharge planning is sought Diagnoses Acute left ankle pain M25.572 Sepsis A41.9 Necrotizing fasciitis due to Streptococcus pyogenes M72.6; B95.0 Cellulitis L03.90 Status post excisional debridement Z98.890 Anemia associated with acute blood loss D62 ALTA (acute kidney injury) N17.9 Hypernatremia E87.0 Hypoxia R09.02 Pulmonary emphysema J43.9 Chronic obstructive pulmonary disease, unspecified COPD type J44.9 COPD type: unspecified COPD LBBB (left bundle branch block) I44.7 NSVT (nonsustained ventricular tachycardia) I47.29 Acute encephalopathy G93.40 Physical deconditioning R53.81
[2023-11-25] MEDS: FUROsemide 10 mg/mL SDV 4mL 40 MG IVP (14:49)
--- NOTE | 2023-11-25 15:10 | PC.NURSE ---
Changed the armendariz per dr ribeiro and documented also completed daily dressing changes on lower right leg and all the skin tear locations on bi lateral knees and arms also changed the dressing on the left ankle per dr ribeiro
[2023-11-25] MEDS: HYDROmorphone 1 mg/mL INJ 1 mL 0.4 MG IVP (15:24)
[2023-11-25] MEDS: trazodone 50 mg Tablet 25 MG PO (20:14)
--- NOTE | 2023-11-25 20:48 | PM.PN ---
Subjective Subjective: No acute events overnight. Patient down to 5 L supplemental oxygen Upset about not being fed-currently is on TPN-will start him on some clear liquids today Overall clinically improving Other labs and imaging reviewed Medications: Reviewed: Yes Medication Review Details: Zosyn 11/11-11/14 meropenem 11/14-11/24 Vancomycin Clindamycin 11/15-11/24 Levaquin 11/18-11/24 Vitals/I&O/Wt Last Vital Signs Temp 97.9 F 11/25/23 15:50 Pulse 64 11/25/23 20:26 Resp 21 H 11/25/23 20:26 BP 137/76 11/25/23 20:26 Pulse Ox 92 11/25/23 20:26 O2 Del Method Nasal Cannula 11/25/23 20:26 O2 Flow Rate 3 11/25/23 20:02 FiO2 49 11/25/23 15:19 11/25/23 11/25/23 11/25/23 06:59 14:59 22:59 Intake Total 1448.75 / 6688.514 9761.542 / 1103.542 50 / 1153.542 Output Total 1600 / 1600 400 / 400 1125 / 1525 Balance -151.25 / 271.458 703.542 / 703.542 -1075 / -371.458 Weight last 48 hrs Weight 218 lb 6 oz Weight 225 lb Physical Exam Narrative: General: alert, NAD HEENT: conj clear, EOMI, PERRL, tongue appears to have sores Neck: supple, no meningismus Heme: no cervical LAP Respiratory: Inspection: No visible deformity of the chest wall Palpation: Trachea is mildly deviated to the right, bilateral symmetric expansion Percussion: Bilateral tympanic percussion note both anterior and posteriorly Auscultation: Bilateral clear to auscultation both anterior and posteriorly, no crackles wheezing or rhonchi Cardiovascular: rrr, nl s1s2, no mrg Abdomen: soft, nt, nd, no r/g, bs+ Extremities: Right lower extremity wound appears to be significantly improved and started to granulate : no CVA tenderness Skin: intact, no rash MSK: no back or neck pain Neurologic: grossly intact Urinary Catheter Management: Love: Cath Placed During This Visit: yes Reason for Continuing Indwelling Catheter: Accurate Measurement of Urinary Output in Critically Ill Patients Urinary Catheter Date of Insertion: 11/25/23 Urinary Catheter Time of Insertion: 14:45 Data 11/26/23 03:36 11/26/23 06:18 Micro: Microbiology 11/18/23 21:13 Blood Culture - Final Blood 11/18/23 21:01 Blood Culture - Final Blood A&P Assessment and plan (1) Hypoxia: (2) CHF (congestive heart failure), NYHA class III: Qualifiers: Congestive heart failure type: systolic Congestive heart failure chronicity: chronic Qualified Code(s): I50.22 - Chronic systolic (congestive) heart failure (3) Gastric ulcer: (4) ALTA (acute kidney injury): (5) CKD (chronic kidney disease): (6) COPD (chronic obstructive pulmonary disease): (7) Smoker: (8) Pulmonary emphysema: (9) Sepsis: (10) Cellulitis: (11) Necrotizing fasciitis due to Streptococcus pyogenes: Plan # Patient who presented with septic shock on presentation secondary to E. coli UTI/necrotizing fasciitis of right lower extremity due to strep pyogenes/left ankle septic arthritis -s/p right debridement of necrotizing fasciitis. came off pressors, improving leukocytosis, -improving wound --Wound cultures grew Staph aureus, strep pyogenes, Enterococcus -However later leukocytosis started to worsen-patient still requiring high flow oxygen with mild pleural effusions-concern for pneumonia-meropenem added -urther investigations showed left ankle bursitis and abscess-s/p incision and drainage of left ankle abscess-improving leukocytosis and patient started clinically improving Covered with meropenem, clindamycin, Levaquin-discontinued all and switchED to cefazolin # COPD exacerbation -Continue scheduled nebulizations -Taper steroids based on clinical response -Patient request PFTs as outpatient -He can be discharged with Trelegy 1 puff daily # Hypoxia in patient with underlying pulmonary emphysema in patient with extensive smoking history # Bilateral pleural effusions-inpatient with history of class III NYHA CHF -Uses 2 L oxygen baseline-Currently down to 5 L supplemental oxygen -Neck CT-revealed bilateral pleural effusions; however a more upright chest x-ray did not show significant pleural effusion;-bedside ultrasound did not show any significant effusion -Less likely empyema/parapneumonic effusion as patient is clinically improving # ALTA on CKD-renal function remained stable-continue monitoring renal parameters and urine output # Hypernatremia 150-patient is on d5w -monitor sodium # Nutrition currently on TPN; - recommended to start clear liquid diet As patient is clinically improving from respiratory/infectious standpoint-out of ICU-decreasing requirements of Supplmental oxygen-I am going to sign out at this point of time Please reconsult if necessary Attestations Medical Necessity Statement*: Clinically improving- Time Spent in Patient Care: Greater than 35 minutes (>than 50% of time spent in counselling and/or direct pt care on unit). Critical Care Time: The high probability of a clinically significant, sudden or life threatening deterioration of the patient's [pulmonary, infectious disease, renal, cardiac] system(s) required my full and direct attention, intervention and personal management. The critical care time is as shown. This time is in addition to time spent performing any reported procedures but includes the following: [x] Data and vital sign review and interpretation [x] Patient assessment, examination and intervention [x] Documentation [x] Medication orders and management Coding Level of Care Code Acute Code for [facility] Diagnoses Hypoxia R09.02 Chronic systolic congestive heart failure, NYHA class 3 I50.22 Congestive heart failure type: systolic Congestive heart failure chronicity: chronic Gastric ulcer K25.9 ALTA (acute kidney injury) N17.9 CKD (chronic kidney disease) N18.9 COPD (chronic obstructive pulmonary disease) J44.9 Smoker F17.200 Pulmonary emphysema J43.9 Sepsis A41.9 Cellulitis L03.90 Necrotizing fasciitis due to Streptococcus pyogenes M72.6; B95.0 Time Spent (min) 4646
[2023-11-26] VITALS (22 sets, daily range): BP systolic 133–163; BP diastolic 67–78; PULSE 55–82; RESP 18–28; TEMP 36.4–36.7; O2SAT 90–98; BMI 34.3
[2023-11-26] MEDS: ipratropium 0.5 mg/2.5 mL Neb INHALATION ×5 (00:18→20:51)
[2023-11-26] MEDS: levalbuterol 0.63 mg/3 mL Neb INHALATION ×5 (00:18→20:51)
[2023-11-26] MEDS: ceFAZolin 2,000 MG in sodium chloride 0.9% (plus) 50 ML 100 MG IV ×3 (03:37→18:37)
[2023-11-26] MEDS: dextrose 5%-sod chloride 0.9% 1,000 ML 30 ML IV (03:38)
[2023-11-26 04:00] LABS: Basophils % 0.1 %; Lymphocytes # 0.5 10^3/uL (0.8-4.8); Lymphocytes % 2.7 %; Mean Corpuscular HGB Conc 28.1 g/dL (30-55); Mean Corpuscular Hemoglobin 28.1 pg (27-33); Mean Platelet Volume 12.3 fL (7.4-10.4); Monocytes # 0.6 10^3/uL (0.2-0.9); Monocytes % 3.7 %; Neutrophils # 16.24 10^3/uL (1.8-7.7); Neutrophils % 92.8 %; Nucleated Red Blood Cells % 0 %; Platelet Count 297 10^3/cmm (157-399); Red Cell Distribution Width 18.3 % (12.1-15.1); White Blood Count 17.48 10^3/uL (3.29-11.43)
[2023-11-26] MEDS: pantoprazole 40 mg SDV IVP ×2 (05:51→17:39)
[2023-11-26] MEDS: sucralfate 1 gm Tablet PO ×4 (05:51→20:11)
[2023-11-26 07:01] LABS: Alanine Aminotransferase 9 U/L (0-41); Alkaline Phosphatase 75 U/L (40-130); Aspartate Amino Transferase 21 U/L (0-40); Blood Urea Nitrogen 49 mg/dL (8-23); C Reactive Protein 29.3 mg/L (0.0-4.9); Calcium 8.4 mg/dL (8.5-10.5); Carbon Dioxide 30 mmol/L (22-29); Chloride 108 mmol/L (98-107); Globulin 3.9 g/dL (1.3-4.6); Glucose 205 mg/dL (65-115); Magnesium 2.3 mg/dL (1.7-2.3); Osmolality Calculated 319 mOsm/kg (285-295); Phosphorus 2.8 mg/dL (2.5-4.5); Sodium 145 mmol/L (136-145); Total Bilirubin 0.2 mg/dL (0.15-1.2); Total Protein 6.9 g/dL (6.6-8.7)
[2023-11-26] MEDS: budesonide 0.5 mg/2 mL Neb INHALATION ×2 (08:17→20:51)
[2023-11-26] MEDS: multivitamin therapeutic Tablet 1 TAB PO (09:08)
[2023-11-26] MEDS: metoprolol tartrate 25 mg Tablet 50 MG PO ×2 (09:08→17:38)
[2023-11-26] MEDS: heparin 5,000 unit/mL INJ 1 mL 5000 UNIT SUBCUT ×2 (09:09→20:11)
[2023-11-26] MEDS: methylPREDNISolone sod succ 40 mg/mL INJ 30 MG IVP ×2 (09:09→17:39)
[2023-11-26] MEDS: nystatin 100,000 unit/mL UDC 5 mL 100000 UNIT PO ×4 (09:09→20:11)
[2023-11-26] MEDS: AA-Dex 5%-20% w/Lytes 1,000 ML 40 ML IV (09:27)
[2023-11-26] MEDS: lidocaine 5% Patch 1 PATCH TOPICAL (11:32)
--- NOTE | 2023-11-26 12:28 | P.PN_ITS ---
Subjective 2 Subjective: No acute events overnight. Patient has remained hemodynamically stable and afebrile. Today morning down to 2 L saturating around 90%. Denies any nausea, vomiting, headache. States feeling better. Medications: Reviewed: Yes Medication Review Details: Zosyn 11/11-11/14 meropenem 11/14-11/24 Vancomycin Clindamycin 11/15-11/24 Levaquin Vitals/I&O/Wt Last Vital Signs Temp 97.6 F 11/26/23 05:53 Pulse 70 11/26/23 11:24 Resp 22 H 11/26/23 11:32 BP 163/77 11/26/23 08:00 Pulse Ox 90 11/26/23 11:32 O2 Del Method Nasal Cannula 11/26/23 11:24 O2 Flow Rate 2 11/26/23 11:24 FiO2 49 11/25/23 15:19 11/25/23 11/26/23 11/26/23 22:59 06:59 14:59 Intake Total 170 / 1273.542 533 / 1806.542 906.667 / 906.667 Output Total 1125 / 1525 1150 / 1150 Balance -955 / -251.458 533 / 281.542 -243.333 / -243.333 Weight last 48 hrs Weight 99.422 kg Weight 99.053 kg Physical Exam 2 Narrative: Sitting up in bed Const: COMMON NORMALS: patient oriented x3 and alert GENERAL APPEARANCE: c ooperative ORIENTATION/CONSCIOUSNESS: Yes awake HENMT: COMMON NORMALS: oropharynx normal Neck/C-Spine: COMMON NORMALS: no JVD Resp: COMMON NORMALS: normal respiratory effort and clear to auscultation bilaterally AUSCULTATION: clear to auscultation bilaterally, rhonchi and wheezes left lower Cardio: COMMON NORMALS: no JVD, regular rhythm, S1 normal heart sound present, S2 normal heart sound present and No murmurs present (Cardio) RHYTHM: regular rhythm HEART SOUNDS: S1 normal heart sound present and S2 normal heart sound present GI: COMMON NORMALS: Normal to inspection, nondistended, normoactive bowel sounds present, Soft to palpation and non-tender PALPATION: Yes Soft to palpation Extremity: COMMON NORMALS: no joint enlargement and no pedal edema N ARRATIVE EXTREMITY EXAM: Severe left ankle tenderness. No redness, open wounds, fluctuance. OTHER: Examined other joints, no pain or swelling. Neuro: COMMON NORMALS: patient oriented x3 and moves all extremities S ENSORIUM/ORIENTATION: Yes alert Skin: COMMON NORMALS: no rashes or lesions noted GENERAL SKIN EXAM: no rashes or lesions noted OTHER: Urinary Catheter Management: Love: Cath Placed During This Visit: yes Reason for Continuing Indwelling Catheter: Accurate Measurement of Urinary Output in Critically Ill Patients Urinary Catheter Date of Insertion: 11/25/23 Urinary Catheter Time of Insertion: 14:45 Data 11/26/23 03:36 11/26/23 06:18 Micro: Microbiology 11/18/23 21:13 Blood Culture - Final Blood 11/18/23 21:01 Blood Culture - Final Blood A&P Assessment and plan (1) Necrotizing fasciitis due to Streptococcus pyogenes: (2) Septic arthritis: (3) Acute left ankle pain: With concerns for septic arthritis versus gout. Appreciate podiatry recommendations. Post joint washout on 11/21. Cultures appreciated with no organisms on Gram stain. Patient currently broadly at covered with empiric antibiotic. Fluid study shows white count to be more than 52,000. Crystal studies awaited (4) Sepsis: Patient presents with sepsis presumably from his right lower extremity cellulitis. Sepsis has resolved. Septic shock has resolved. Patient continues to have leukocytosis, severe anemia with borderline blood pressures and tachycardia. Maintain mean artery pressure over 65. Maintain saturation over 90%. Strict input output charting, daily weights. (5) Cellulitis: Patient with evidence of right lower extremity cellulitis. Post debridement. Follow-up blood culture, wound culture. Wound culture growing group A strep, Staph aureus and Enterobacter. Patient has been on broad-spectrum antibiotics for more than 7 days. Currently on clindamycin, Levaquin and meropenem. (6) Status post excisional debridement: (7) Anemia associated with acute blood loss: This is secondary to upper GI bleed. Appreciate surgical recommendations. Post endoscopy. 11/12 showed gastric ulcers. Hemoglobin overall stable over 8. Currently 8.2. Continue with Protonix twice daily. Add Carafate before meals and at bedtime. Hold off on anticoagulation. Till now patient has received 4 units of blood transfusion and 1 unit of FFP. (8) ALTA (acute kidney injury): Strict improper charting, daily weights. Creatinine stable at 1.5 for now. Monitor BMP in evening. Replace Love. Has persistent hyponatremia with sodium around 150. (9) Hypernatremia: Resolved. Most likely in setting of poor oral intake. Fluid as above. Repeat BMP in evening. (10) Hypoxia: Most likely in setting of poor inspiratory response. High concerns for aspiration pneumonitis as well. Continue n.p.o. for now. Will plan for speech evaluation. Oxygen supplementation keeping saturation over 88%. Aggressive pulmonary toilet. Out of bed to chair. Continue with chest vest and incentive spirometry. Monitor fluid status. IV Lasix 40 mg today. Keep net euvolemic. Along with Lasix for now we will start patient on D5 NS at 50 cc/h with overal fluid at 75 cc/h. Continue with Pulmicort twice daily, DuoNebs every 6 hour. Will wean down Solu-Medrol to 30 mg every 12 hourly from tomorrow. (11) Pulmonary emphysema: (12) COPD (chronic obstructive pulmonary disease): Qualifiers: COPD type: unspecified COPD Qualified Code(s): J44.9 - Chronic obstructive pulmonary disease, unspecified (13) LBBB (left bundle branch block): Having intermittent episodes of non-sustained V. tach. Does have history of intermittent LBBB in the past. Increase dose of metoprolol to 50 mg twice daily. Telemetry. Monitor electrolytes. (14) NSVT (nonsustained ventricular tachycardia): (15) Acute encephalopathy: Resolved. Patient is out of bed to chair. Continue to monitor. Precedex if needed. Otherwise can add Xanax 0.25 mg nightly as needed. (16) Physical deconditioning: Plan Plan for the day: Appreciate speech therapy evaluation. Plan for modified barium swallow. Continue with aggressive pulmonary toilet. Wean down oxygen supplementation keeping saturation over 90%. Strict input output charting. Continue with D5W and TPN overall at 75 cc/h. Will plan for low-dose Lasix later in the day today. ALTA and hypernatremia for now has resolved. Will start weaning Solu-Medrol further down from tomorrow. Appreciate ID recommendations. Path report from synovitic fluid consistent with possible gout. Will plan for cefazolin for overall 2 weeks on discharge. Continue with aggressive pulm toilet with I-S and Acapella along with chest vest. Hemoglobin so far stable between 7.5-8.4. Currently 7.8. Continue to monitor daily. If needed will transfuse 1 unit of PRBC keeping target more than 7. Out of bed to chair. Will plan for ambulation today with physical therapy. Analgesia:Dilaudid 1 mg every 6 hours orally, 0.4 every 4 hours as needed Glycemic control: Not needed. Nutrition: NPO. Continue with TPN. Repeat speech evaluation. CODE STATUS:Discussed in detail with the patient. Son will be the DPOA. Patient would want to remain full code for now. But does not want to remain on life support for long. PUD prophylaxis: Full dose Protonix twice daily DVT prophylaxis: SCDs. Hold off on medical prophylaxis given GI bleed Discharge planning: Plan to discharge to SNF for further rehabitation, aggressive wound care, IV antibiotics. Patient's oxygen supplementation is less than 5 L now. This documentation was created by [employer] cap blocker software. Every effort was made to ensure accuracy of cap blocker. Any obvious errors or omissions should be clarified with the author of the document. Attestations 2 Medical Necessity Statement*: Requires further hospitalization for management of hypoxia in setting of aspiration pneumonitis, physical deconditioning in setting of group strep a necrotizing fasciitis of the leg post debridement, resolving ALTA and hypernatremia as patient continues to have poor oral intake Diagnoses Necrotizing fasciitis due to Streptococcus pyogenes M72.6; B95.0 Septic arthritis M00.9 Acute left ankle pain M25.572 Sepsis A41.9 Cellulitis L03.90 Status post excisional debridement Z98.890 Anemia associated with acute blood loss D62 ALTA (acute kidney injury) N17.9 Hypernatremia E87.0 Hypoxia R09.02 Pulmonary emphysema J43.9 Chronic obstructive pulmonary disease, unspecified COPD type J44.9 COPD type: unspecified COPD LBBB (left bundle branch block) I44.7 NSVT (nonsustained ventricular tachycardia) I47.29 Acute encephalopathy G93.40 Physical deconditioning R53.81
--- NOTE | 2023-11-26 15:46 | PC.OT ---
Attempted OT treatment session with pt undergoing procedure; will attempt at later time.
--- NOTE | 2023-11-26 17:06 | P.PN_ITS ---
Subjective 2 Subjective: Path result from left ankle turned out to be acute gout. Bifringent crystals seen on pathology. Medications: Reviewed: Yes Medication Review Details: Zosyn meropenem 11/14-11/24 Vancomycin Clindamycin 11/15-11/24 Levaquin 11/18-11/24 Vitals/I&O/Wt Last Vital Signs Temp 97.6 F 11/26/23 05:53 Pulse 64 11/26/23 16:45 Resp 18 11/26/23 16:45 BP 163/77 11/26/23 08:00 Pulse Ox 95 11/26/23 16:45 O2 Del Method Nasal Cannula 11/26/23 16:45 O2 Flow Rate 2 11/26/23 16:45 FiO2 49 11/25/23 15:19 11/26/23 11/26/23 11/26/23 06:59 14:59 22:59 Intake Total 533 / 1806.542 906.667 / 906.667 Output Total 1700 / 1700 Balance 533 / 281.542 -793.333 / -793.333 Weight last 48 hrs Weight 99.422 kg Weight 99.053 kg Physical Exam 2 Narrative: General: No acute distress, AO x3 HEENT: PERRLA, pupils bilaterally equal and reactive, pallors not present Chest: Normal vesicular breath sounds, no added sounds, equal good air entry bilaterally CVS: S1-S2 regular, no murmurs, no tachycardia, no gallops, no rubs Abdomen: Soft, nontender, no organomegaly, bowel sounds present Neuro: No focal deficits, no facial deformity, AO x3, power 5/5 in all limbs wound pictures reviewed from hospitalist notes Urinary Catheter Management: Love: Cath Placed During This Visit: yes Reason for Continuing Indwelling Catheter: Accurate Measurement of Urinary Output in Critically Ill Patients Urinary Catheter Date of Insertion: 11/25/23 Urinary Catheter Time of Insertion: 14:45 Data 11/26/23 03:36 11/27/23 06:25 Micro: Microbiology 11/18/23 21:13 Blood Culture - Final Blood 11/18/23 21:01 Blood Culture - Final Blood November 20, 2022 left ankle aspirate Gram stain: Moderate PMN else, no organisms Blood culture November 18, 2023: No growth Wound culture November 14, 2023 from right lower extremity: Strep pyogenes and Staph aureus MSSA. Wound culture November 14, 2023: Strep pyogenes, MSSA, few Enterobacter Other data: LEFT ANKLE FLUID ANALYSIS: 1. Markedly increased concentration of acute inflammatory cells. 2. Numerous crystals with birefringent qualities consistent with uric acid A&P Assessment and plan (1) Necrotizing fasciitis due to Streptococcus pyogenes: (2) Septic arthritis: now excluded - left ankle path with uric acid crystals (3) Acute gout: Plan Mr. Whitman is a 67-year-old male who had presented with RIGHT lower extremity necrotizing fasciitis leading to septic shock, status post debridement at first on November 14, 2023 with hospital course complicated by GI bleed, COPD exacerbation, acute on chronic hypoxic respiratory failure. Cultures are available from debridement performed on November 14, 2023 These are revealing MSSA, group A streptococcus and 1 culture additionally revealing Enterobacter cloacae. Patient has been on an extended course of Zosyn/meropenem, clindamycin during the course of his admission as outlined above. In spite of broad-spectrum antimicrobial coverage he continued to have intermittent fevers and persistent leukocytosis. Further evaluation revealed acute tenderness at the LEFT ankle joint raising concern for septic arthritis versus acute gout. Synovial fluid aspirate was performed, synovial fluid WBC count 52, 000. Low glucose was obtained. This was followed up by arthroscopy and I&D of the left ankle joint on 11/21. Pus was encountered. Synovial fluid aspirate culture thus far negative to date, pathology now revealing uric acid crystals which makes a diagnosis of acute gout more likely. Septic arthritis appears unlikely given this new information. Blood culture remains negative to date. Plan: continue cefazolin 2 g IV every 8 hours in keeping with culture results from OR debridement on 11/14 Can complete 2 weeks course for complicated SSTI with aggressive organisms (MSSA, GAS) until 12/05. Patient planned to be transitioned to SNF okay to continue steroids for acute gout from an ID standpoint. Willl sign off. please call with any furher questions or concerns Attestations 2 Medical Necessity Statement*: per admitting Coding Level of Care Code Acute Code for [facility] Diagnoses Necrotizing fasciitis due to Streptococcus pyogenes M72.6; B95.0 Septic arthritis M00.9 Acute gout M10.9
--- NOTE | 2023-11-26 17:56 | PC.SLP ---
MBS attempted earlier today. Pt had two BMs on transfer on the 2 attempts, and was taken back to his room. Plan is for MBS tomorrow. Pt was fatigued.
--- NOTE | 2023-11-26 19:51 | PC.NURSE ---
Patient did not have swallow study done today due to having a bowel movement in radiology when moving from wheelchair to higher chair in radiology. Patient was returned to [facility] for nursing staff to clean up. While nursing staff was cleaning patient up it was noticed that radiology staff had disconnected patients TPN and D5W. Patients TPN and D5W were reconnected and radiology staff was told that the fluids needed to stay with the patient. Test was attempted again but patient had another BM while attempting to get on the radiology chair. Patient was returned to [facility] to be cleaned. Swallow study will be done tomorrow.
[2023-11-26] MEDS: trazodone 50 mg Tablet 25 MG PO (20:11)
[2023-11-27] VITALS (15 sets, daily range): BP systolic 133–151; BP diastolic 67–79; PULSE 53–87; RESP 17–25; TEMP 36.7–37.2; O2SAT 92–97
--- NOTE | 2023-11-27 | FL_ITS ---
FL barium swallow modifd [id number] REASON FOR EXAM: Oropharyngeal dysphagia FLUOROSCOPY TIME: 4min 10.180125ots SPOT FILMS: None FINDINGS: The examination was supervised by the speech therapy department. The patient was evaluated in the sitting upright lateral projection. The swallowing of varying consistencies of barium was monitored fluoroscopically and video recorded. The speech therapy department will render a detailed report of the swallowing. IMPRESSION: Modified barium swallow as above. MTDD
[2023-11-27] MEDS: levalbuterol 0.63 mg/3 mL Neb INHALATION ×4 (00:34→20:08)
[2023-11-27] MEDS: ipratropium 0.5 mg/2.5 mL Neb INHALATION ×4 (00:34→20:08)
[2023-11-27] MEDS: ceFAZolin 2,000 MG in sodium chloride 0.9% (plus) 50 ML 100 MG IV ×3 (01:16→21:46)
[2023-11-27] MEDS: ondansetron 2 mg/ML SDV 2 mL 4 MG IVP (01:16)
--- NOTE | 2023-11-27 02:29 | PC.NURSE ---
Patient has c/o being anxious, feeling restless. Spoke to Dr. Morrison, given order for a One time dose of Benadryl 25mg PO.
[2023-11-27] MEDS: diphenhydrAMINE 25 mg Capsule PO (02:34)
[2023-11-27] MEDS: pantoprazole 40 mg SDV IVP ×2 (06:21→18:01)
[2023-11-27 06:50] LABS: Alanine Aminotransferase 10 U/L (0-41); Albumin Level 2.8 g/dL (3.5-5.2); Alkaline Phosphatase 70 U/L (40-130); Anion Gap 11.9 (5-19); Aspartate Amino Transferase 24 U/L (0-40); Blood Urea Nitrogen 39 mg/dL (8-23); Carbon Dioxide 30 mmol/L (22-29); Chloride 109 mmol/L (98-107); Globulin 3.4 g/dL (1.3-4.6); Glucose 236 mg/dL (65-115); Magnesium 2.1 mg/dL (1.7-2.3); Osmolality Calculated 321 mOsm/kg (285-295); Phosphorus 2.5 mg/dL (2.5-4.5); Potassium 3.9 mmol/L (3.5-5.1); Sodium 147 mmol/L (136-145); Total Bilirubin 0.2 mg/dL (0.15-1.2); Total Protein 6.2 g/dL (6.6-8.7)
[2023-11-27] MEDS: budesonide 0.5 mg/2 mL Neb INHALATION ×2 (07:26→20:08)
[2023-11-27] MEDS: multivitamin therapeutic Tablet 1 TAB PO (08:00)
[2023-11-27] MEDS: sucralfate 1 gm Tablet PO ×3 (08:00→21:46)
[2023-11-27] MEDS: nystatin 100,000 unit/mL UDC 5 mL 100000 UNIT PO ×4 (08:01→21:45)
[2023-11-27] MEDS: methylPREDNISolone sod succ 40 mg/mL INJ 30 MG IVP ×2 (08:01→18:00)
[2023-11-27] MEDS: lidocaine 5% Patch 1 PATCH TOPICAL (08:01)
[2023-11-27] MEDS: metoprolol tartrate 25 mg Tablet 50 MG PO ×2 (08:01→18:01)
[2023-11-27] MEDS: heparin 5,000 unit/mL INJ 1 mL 5000 UNIT SUBCUT ×2 (08:02→21:45)
[2023-11-27 11:01] LABS: Glucose Point of Care 208 mg/dL (70-110)
[2023-11-27] MEDS: promethazine 25 mg/mL SDV 1 mL 12.5 MG IM (11:02)
--- NOTE | 2023-11-27 12:25 | P.DS_ITS ---
Discharge Providers 2 Date of Admission: 11/11/23 11:21 Date of Discharge: November 27, 2023 Attending Provider at Admission: Lial Judge MD Attending Provider at Discharge: Rai Wheeler MD Consults: Surgery: All Dr. Mansoor Preciado Podiatry: Dr. Fong ID: Dr. Metcalf Pulmonogy: Dr. Mcpherson Primary Care Provider: Jason Harper DO Diagnoses at Discharge Discharge Diagnosis (1) Hypoxia: Status: Acute (2) CHF (congestive heart failure), NYHA class III: Status: Chronic Qualifiers: Congestive heart failure chronicity: chronic Congestive heart failure type: systolic Qualified Code(s): I50.22 - Chronic systolic (congestive) heart failure (3) Gastric ulcer: Status: Acute (4) ALTA (acute kidney injury): Status: Acute (5) CKD (chronic kidney disease): Status: Chronic (6) COPD (chronic obstructive pulmonary disease): Status: Inactive Permanent problem details: Wears 2 L of oxygen chronically (7) Smoker: Status: Chronic (8) Pulmonary emphysema: Status: Acute (9) Sepsis: Status: Acute (10) Cellulitis: Status: Acute (11) Necrotizing fasciitis due to Streptococcus pyogenes: Status: Acute Reason for Visit 2 Reason for Visit: syncope/fall Brief History: History per HPI: Originally admitted on 11/11: Peter Herrmann is a 67 year old male presenting to the emergency department via EMS.. He has been confused over the last week. There has been some concern that he had had at least a low-grade temperature. He was found down by his grandson and could have been down for several hours. He has had some darker stools than usual. He had recently been on Bactrim for a right lower extremity cellulitis. Patient cannot give much history when I interviewed him. His son showed up and corollary history was obtained from him. Patient currently denies any shortness of breath, chest discomfort. He denies any bright red blood in his stools or vomiting any blood. In the emergency department he received some calcium chloride, a sepsis bolus, norepinephrine, Zosyn and vancomycin, and sodium bicarb. Hospital Course Hospital Course Patient was admitted to the hospital further evaluation and management of severe sepsis with cellulitis of right lower limb along with acute anemia with concerns for GI bleed and acute encephalopathy in setting of acute kidney injury and hyperkalemia. On admission he was hypotensive for which he was started on IV antibiotics, IV fluids and vasopressors. Surgery was consulted. He underwent endoscopy on 11/12 which showed nonbleeding gastric ulcers. He was transfused overall 4 units of PRBC and 1 unit of FFP during hospitalization. For concerns for severe cellulitis of the leg with concerns for necrotizing fasciitis he also underwent aggressive debridement on 11/14. His blood culture during hospitalization remain negative, wound culture from the OR grew group A strep, Staph aureus and Enterobacter. Patient's hospitalization was complicated by him having respiratory failure requiring high oxygen supplementation, slow to respond acute kidney injury, hypernatremia, recurrent episodes of aspiration along with persistent leukocytosis. He is also found to have swelling of his left ankle for which podiatry was consulted and he underwent wound aspiration and debridement. At first there was a concern for septic arthritis for which he was started on IV antibiotics. Later fluid pathology came back concerning for gout. Given multiple organisms ID was consulted and his antibiotics were tapered down to IV cefazolin. Patient was kept n.p.o. and was started on parenteral nutrition with TPN. With management of fluid status slowly his hypernatremia and ALTA resolved. Patient underwent aggressive physical therapy, speech therapy and modified barium swallow has been done and he has been advised to take modified level 5 dysphagia diet with thickened pur?e along with aspiration precautions. Currently patient is able to ambulate up to 25 feet with physical therapy on 3 to 4 L of oxygen supplementation while requiring 2 L at rest. His oxygen supplementation requirements have been stable for last 3 to 4 days. Given concerns for high risk of aspiration patient is at risk of aspiration pneumonia. Aspiration precautions have been discussed in detail at bedside with patient and patient's son. Given requirement of IV antibiotics, aggressive physical and speech therapy along with wound care for the same discharge plan were discussed in detail with the patient and son and they were agreeable for SNF placement. He has been discharged to care home for further rehabitation. He is to take IV cefazolin going forward for next 2 weeks 3 times a week. He is to follow-up with wound care as an outpatient. Physical Exam 2 Narrative: Sitting up in bed Const: COMMON NORMALS: patient oriented x3 and alert GENERAL APPEARANCE: c ooperative ORIENTATION/CONSCIOUSNESS: Yes awake HENMT: COMMON NORMALS: oropharynx normal Neck/C-Spine: COMMON NORMALS: no JVD Resp: COMMON NORMALS: normal respiratory effort and clear to auscultation bilaterally AUSCULTATION: clear to auscultation bilaterally, rhonchi and wheezes left lower Cardio: COMMON NORMALS: no JVD, regular rhythm, S1 normal heart sound present, S2 normal heart sound present and No murmurs present (Cardio) RHYTHM: regular rhythm HEART SOUNDS: S1 normal heart sound present and S2 normal heart sound present GI: COMMON NORMALS: Normal to inspection, nondistended, normoactive bowel sounds present, Soft to palpation and non-tender PALPATION: Yes Soft to palpation Extremity: COMMON NORMALS: no joint enlargement and no pedal edema N ARRATIVE EXTREMITY EXAM: Severe left ankle tenderness. No redness, open wounds, fluctuance. OTHER: Examined other joints, no pain or swelling. Neuro: COMMON NORMALS: patient oriented x3 and moves all extremities S ENSORIUM/ORIENTATION: Yes alert Skin: COMMON NORMALS: no rashes or lesions noted GENERAL SKIN EXAM: no rashes or lesions noted OTHER: Urinary Catheter Management: Love: Cath Placed During This Visit: yes Reason for Continuing Indwelling Catheter: Accurate Measurement of Urinary Output in Critically Ill Patients Urinary Catheter Date of Insertion: 11/25/23 Urinary Catheter Time of Insertion: 14:45 Discharge Data Studies Completed and Pending Completed Studies During Hospitalization Category Date Time Status CT abdomen pelvis wo con [id number] Stat Cat Scan 11/11/23 06:[address] abdomen pelvis wo con [id number] Stat Cat Scan 11/13/23 10:[address] ankle LT wo con* [id number] Urgent Cat Scan 11/20/23 12:[address] chest wo con [id number] Routine Cat Scan 11/15/23 11:[address] head wo con* [id number] Stat Cat Scan 11/11/23 04:[address] lower leg RT wo con* [id number] Stat Cat Scan 11/11/23 07:[address] neck w con* [id number] Routine Cat Scan 11/22/23 14:01 Completed CXRP [XR chest 1V portable [id number]] Routine Exams 11/13/23 11:00 Completed CXRP [XR chest 1V portable 00714] Routine Exams 11/22/23 09:56 Completed CXRP [XR chest 1V portable [id number]] Routine Exams 11/25/23 10:48 Completed CXRP [XR chest 1V portable 09246] Stat Exams 11/11/23 07:24 Completed XR ankle LT min 3V* [id number] Routine Exams 11/20/23 13:40 Completed XR chest 1V portable [id number] Routine Exams 11/18/23 03:32 Completed XR chest 1V portable [id number] Stat Exams 11/11/23 04:56 Completed Blood Cultures ([facility]) Routine Lab 11/11/23 06:56 Completed Blood Cultures ([facility]) Routine Lab 11/11/23 07:33 Completed Blood Cultures ([facility]) Routine Lab 11/18/23 21:01 Completed Blood Cultures ([facility]) Routine Lab 11/18/23 21:13 Completed Pathology: Surgical [PTH] Routine Pth 11/12/23 13:14 Completed Pathology: Surgical [PTH] Routine Pth 11/14/23 12:22 [place] [id number] Routine Ultrasound 11/11/23 13:22 Completed CV. echo complete* [id number] Urgent Ultrasound 11/15/23 11:59 Completed US gall bladder 28334 Routine Ultrasound 11/18/23 14:46 Completed US venous duplex lower extremity RT [CV venous duplex Ultrasound 11/11/23 06:[place] [address]] Stat Pending at discharge Category Date Time Status FL barium swallow modifd [id number] Routine Exams 11/27/23 08:29 Taken MAG [Magnesium] AM LABS Lab 11/28/23 04:00 Ordered PHOS [Phosphorus] AM LABS Lab 11/28/23 04:00 Ordered Radiology Impressions Head CT 11/11/23 04:56 IMPRESSION: 1. No acute intracranial hemorrhage or mass effect identified. 2. Chronic microvascular ischemic disease greater than anticipated for age. Chest CT 11/15/23 11:35 IMPRESSION: Trace bilateral pleural effusions and overlying atelectasis/consolidation, underlying infiltrate not excluded. Peripancreatic inflammatory stranding. If there is correlating elevated lipase this could represent acute pancreatitis. COMMENTS: The presence of pulmonary emphysema on CT is an independent risk factor for lung cancer. In the absence of a history or active diagnosis of lung cancer, it is recommended that this patient with emphysema be evaluated for enrollment in a low dose CT lung cancer screening program. Neck CT 11/22/23 14:01 IMPRESSION: Normal CT neck Bilateral pleural effusions Microbiology 11/18/23 21:13 Blood Blood Culture - Final 11/18/23 21:01 Blood Blood Culture - Final 11/20/23 16:12 Ankle - Aspirate Gram Stain - Final 11/20/23 16:12 Ankle - Aspirate Wound Culture - Final 11/14/23 11:35 Leg - #1 Anaerobic Culture - Final 11/19/23 03:53 Sputum - Expectorated Sputum Gram Stain - Final 11/19/23 03:53 Sputum - Expectorated Sputum Sputum Culture - Final 11/11/23 07:33 Blood Blood Culture - Final 11/11/23 06:56 Blood Blood Culture - Final 11/14/23 11:35 Leg - #3 Gram Stain - Final 11/14/23 11:35 Leg - #3 Tissue Culture - Final Strep pyogenes (grp a) Staphylococcus aureus Enterobacter cloacae 11/14/23 11:35 Leg - #2 Gram Stain - Final 11/14/23 11:35 Leg - #2 Wound Culture - Final Strep pyogenes (grp a) Staphylococcus aureus 11/11/23 06:15 Urine,Clean Catch Urine Culture - Final Escherichia coli 11/11/23 18:35 Stool - Stool Aspirate Occult Blood (FIT) - Final Echocardiogram: CONCLUSIONS Normal left ventricular size and systolic function, EF 72 %. No regional wall motion abnormalities. Mild tricuspid valve regurgitation. There is no pericardial effusion. Dr Len Merida MD [facility] (Electronically Signed) Final Date: 15 November 2023 13:54 S Laboratory Results WBC 17.48 10^3/uL (3.29-11.43) H 11/26/23 03:36 RBC 2.70 10^6/uL (3.85-5.65) L 11/26/23 03:36 Hgb 7.60 g/dL (11.27-16.99) L 11/26/23 03:36 Hct 27.0 % (37-53) L 11/26/23 03:36 MCV 100.0 fl (82-101) 11/26/23 03:36 MCH 28.1 pg (27-33) 11/26/23 03:36 MCHC 28.1 g/dL (30-55) L 11/26/23 03:36 RDW 18.3 % (12.1-15.1) H 11/26/23 03:36 Plt Count 297 10^3/cmm (157-399) 11/26/23 03:36 MPV 12.3 fL (7.4-10.4) H 11/26/23 03:36 Neut % (Auto) 92.8 % 11/26/23 03:36 Lymph % (Auto) 2.7 % 11/26/23 03:36 [place] % (Auto) 3.7 % 11/26/23 03:36 Eos % (Auto) 0.0 % 11/26/23 03:36 Baso % (Auto) 0.1 % 11/26/23 03:36 Neut # (Auto) 16.24 10^3/uL (1.8-7.7) H 11/26/23 03:36 Lymph # (Auto) 0.5 10^3/uL (0.8-4.8) L 11/26/23 03:36 [place] # (Auto) 0.6 10^3/uL (0.2-0.9) 11/26/23 03:36 Eos # (Auto) 0.0 10^3/uL (0.0-0.8) 11/26/23 03:36 Baso # (Auto) 0.0 10^3/uL (0.0-0.1) 11/26/23 03:36 Nucleated RBC % (auto) 0 % 11/26/23 03:36 Total Counted 100 (0-100) 11/11/23 05:15 Atypical Lymphs % Not Reportable 11/11/23 05:15 Segmented Neutrophils 86 % 11/11/23 05:15 Abs Segm Neuts (Man) 23.1 10/cmm (1.6-7.1) H 11/11/23 05:15 Band Neutrophils Not Reportable 11/11/23 05:15 Lymphocytes (Manual) 7 % 11/11/23 05:15 Monocytes (Manual) 3.0 % 11/11/23 05:15 Absolute Monocytes 0.8 10^3/cmm (0.1-0.6) H 11/11/23 05:15 Eosinophils (Manual) 1 % 11/11/23 05:15 Absolute Eosinophils 0.3 10^3/cmm (0.0-0.7) 11/11/23 05:15 Basophils (Manual) 0.0 % 11/11/23 05:15 Absolute Basophils 0.0 10^3/cmm (0.0-0.2) 11/11/23 05:15 Myelocytes 3.0 % 11/11/23 05:15 Nucleated RBCs # 0.0 /100WBC 11/26/23 03:36 Hypersegmented Polys 1+ 11/11/23 05:15 Platelet Estimate Increased (Normal) 11/11/23 05:15 Giant Platelets Trace 11/11/23 05:15 Anisocytosis 1+ H 11/11/23 05:15 G6PD 31.4 U/g Hgb (7.0-20.5) H 11/20/23 03:20 PT 16.50 SECONDS (12.1-14.9) H 11/13/23 08:01 INR 1.29 (0.8-1.2) H 11/13/23 08:01 Specimen Type Arterial 11/23/23 13:03 Sample Site Brachial, right 11/23/23 13:03 ABG pH 7.37 (7.35-7.45) 11/23/23 13:03 ABG pCO2 50.2 mmHg (35-45) H 11/23/23 13:03 ABG pO2 65.6 mmHg (80.0-100.0) L 11/23/23 13:03 ABG PO2/FiO2 Ratio 0 11/23/23 13:03 ABG HCO3 29.1 mmol/L (22-26) H 11/23/23 13:03 ABG O2 Saturation 93.1 11/23/23 13:03 ABG Base Excess 3.2 mmol/L (-2.0-2.0) H 11/23/23 13:03 Adam Test N/a 11/23/23 13:03 A-a O2 Gradient 29.3 mmHg (5-10) H 11/23/23 13:03 Hematocrit 29.2 % (42-52) L 11/23/23 13:03 Hgb O2 Saturation 91.3 % (95-100) L 11/23/23 13:03 Carboxyhemoglobin 1.3 %THgb (0.4-20.1) 11/23/23 13:03 Methemoglobin 0.7 % (0.4-1.5) 11/23/23 13:03 Total Hemoglobin 9.5 g/dL (14-18) L 11/23/23 13:03 Sodium 153.0 mmol/L (131-143) H 11/23/23 13:03 Potassium 3.6 mmol/L (3.5-5.0) 11/23/23 13:03 Glucose 160.0 mg/dL (70-115) H 11/23/23 13:03 Ionized Calcium 1.3 mmol/L (1.1-1.4) 11/23/23 13:03 O2 Delivery Device Nc 11/23/23 13:03 O2 Liters/Min 50.0 % 11/23/23 13:03 FiO2 50.0 % 11/23/23 13:03 Property Manager ID Gd 11/23/23 13:03 Sodium 147 mmol/L (136-145) H 11/27/23 06:25 Potassium 3.9 mmol/L (3.5-5.1) 11/27/23 06:25 Chloride 109 mmol/L (98-107) H 11/27/23 06:25 Carbon Dioxide 30 mmol/L (22-29) H 11/27/23 06:25 Anion Gap 11.9 (5-19) 11/27/23 06:25 BUN 39 mg/dL (8-23) H 11/27/23 06:25 Creatinine 1.1 mg/dL (0.7-1.2) 11/27/23 06:25 GFR Calculation 67.0 mL/min (90-130) L 11/27/23 06:25 Glucose 236 mg/dL (65-115) H 11/27/23 06:25 POC Glucose 208 mg/dL (70-110) H 11/27/23 10:57 Calculated Osmolality 321 mOsm/kg (285-295) H 11/27/23 06:25 Lactic Acid 6.3 mmol/L (0.5-2.2) H* 11/11/23 05:15 Lactic Acid (Sepsis) 6.1 mmol/L (0.5-2.2) H* 11/11/23 07:33 Lactate 0.5 mmol/L (0.5-2.2) 11/13/23 10:03 Uric Acid 12.0 mg/dL (3.4-7.0) H 11/20/23 08:19 Calcium 8.0 mg/dL (8.5-10.5) L 11/27/23 06:25 Phosphorus 2.5 mg/dL (2.5-4.5) 11/27/23 06:25 Magnesium 2.1 mg/dL (1.7-2.3) 11/27/23 06:25 Iron 11 ug/dL (59-158) L 11/15/23 11:54 TIBC 171 mcg/dl 11/15/23 11:54 % Saturation 6.4 % (20-50) L 11/15/23 11:54 Unsat Iron Binding 160 ug/dL (112-347) 11/15/23 11:54 Total Bilirubin 0.2 mg/dL (0.15-1.2) 11/27/23 06:25 AST 24 U/L (0-40) 11/27/23 06:25 ALT 10 U/L (0-41) 11/27/23 06:25 Alkaline Phosphatase 70 U/L (40-130) 11/27/23 06:25 Ammonia 26 umol/L (16-60) 11/12/23 07:10 Creatine Kinase 97 U/L (39-308) 11/11/23 05:15 Creatine Kinase 101 U/L (39-308) 11/11/23 05:15 Troponin T Baseline 33 ng/L (0-15) H 11/23/23 00:47 Troponin T 120 Minute 37.22 ng/L (0-15) H 11/23/23 02:50 Delta Troponin T 4.22 ABS# (0-10) 11/23/23 02:50 Troponin T Hi Sens 6Hr 30.22 ng/L (0-15) H 11/23/23 07:08 Troponin T Hi Sens 6Hr Delta -2.78 ng/L (0-12) L 11/23/23 07:08 C-Reactive Protein 29.3 mg/L (0.0-4.9) H 11/26/23 06:18 NT-Pro-B Natriuret Pep 2066 pg/mL (0-125) H 11/23/23 13:46 Total Protein 6.2 g/dL (6.6-8.7) L 11/27/23 06:25 Albumin 2.8 g/dL (3.5-5.2) L 11/27/23 06:25 Globulin 3.4 g/dL (1.3-4.6) 11/27/23 06:25 Lipase 90 U/L (13-60) H 11/23/23 13:46 Vitamin B12 1654 pg/mL (232-1245) H 11/15/23 11:54 Folate 3.9 ng/mL (4.5-32.2) L 11/16/23 03:55 Procalcitonin 0.60 ng/mL (0-0.5) H 11/15/23 11:54 Random Cortisol 25.73 ug/dL (2.47-19.5) H 11/11/23 05:15 Urine Color Yellow (Yellow) 11/11/23 06:15 Urine Appearance Clear (CLEAR) 11/11/23 06:15 Urine pH 5 (5-7) 11/11/23 06:15 Ur Specific Mitchell 1.015 (1.005-1.030) 11/11/23 06:15 Urine Protein Neg (Negative) 11/11/23 06:15 Urine Glucose (UA) Norm (Normal) 11/11/23 06:15 Urine Ketones Negative (Negative) 11/11/23 06:15 Urine Blood 2+ (Negative) H 11/11/23 06:15 Urine Nitrate Negative (Negative) 11/11/23 06:15 Urine Bilirubin Neg (Negative) 11/11/23 06:15 Urine Urobilinogen Neg mg/dL (Negative) 11/11/23 06:15 Ur Leukocyte Esterase 1+ (Negative) H 11/11/23 06:15 Urine RBC Rare /hpf (0-2) 11/11/23 06:15 Urine WBC 5-10 /hpf (0-5) H 11/11/23 06:15 Ur Squamous Epith Cells 0-4 /hpf (0-5) H 11/11/23 06:15 Ur Transition Epith Cell 0-4 /hpf 11/11/23 06:15 Amorphous Sediment Not Reportable 11/11/23 06:15 Urine Bacteria Trace /hpf (NONE) 11/11/23 06:15 Urine Mucus Trace /hpf 11/11/23 06:15 Urine Yeast Trace /hpf 11/11/23 06:15 Fluid Crystals Sent to path 11/20/23 16:12 Fluid Glucose 28.0 mg/dL 11/20/23 16:12 Ethyl Alcohol < 10 mg/dL (0-10) 11/11/23 21:19 C. difficile Tox (PCR) Not detected (NOT DETECTED) 11/15/23 15:18 Coronavirus 229E (PCR) Not detected (NOT DETECT) 11/18/23 21:01 SARS-CoV-2 (PCR) Not detected (NOT DETECT) 11/18/23 21:01 MRSA (PCR) Not detected (NOT DETECTED) 11/11/23 17:28 Blood Type AB Negative 11/15/23 11:54 Rho(D) Type Negative 11/15/23 11:54 Antibody Screen Negative 11/15/23 11:54 Crossmatch See Detail 11/15/23 11:54 Vitals Last Vital Signs Temp 98.5 F 11/27/23 12:00 Pulse 68 11/27/23 12:00 Resp 23 H 11/27/23 12:00 BP 133/76 11/27/23 12:00 Pulse Ox 92 11/27/23 12:00 O2 Del Method Nasal Cannula 11/27/23 12:00 O2 Flow Rate 4 11/27/23 07:27 FiO2 40 11/26/23 20:58 Discharge Plan Discharge Patient Disposition: Home Condition: Stable Prescriptions: New cefazolin 2 gram recon soln 2 g IM Q8H 8 Days Qty: 25 0RF nystatin 100,000 unit/mL Suspension 100,000 unit PO QID 30 Days Qty: 120 0RF trazodone 50 mg Tablet 25 mg PO BEDTIME Qty: 30 0RF sucralfate 1 gram Tablet 1 g PO AC&BEDTIME 30 Days Qty: 120 0RF Thera 400 mcg Tablet 1 tab PO DAILY Qty: 60 0RF lidocaine 5 % Adhesive Patch,Medicated 1 patch topical [id number] Qty: 14 0RF Protonix 40 mg tablet,delayed release (DR/EC) 40 mg PO BID 30 Days Qty: 60 0RF Rx Instructions: Twice daily for next 4 weeks after that once daily prednisone 10 mg tablet See Taper PO DIRECTED Qty: 42 0RF Taper: predniSONE 60-10 60 mg Daily for 2 Days and 0 Hour 50 mg Daily for 2 Days and 0 Hour 40 mg Daily for 2 Days and 0 Hour 30 mg Daily for 2 Days and 0 Hour 20 mg Daily for 2 Days and 0 Hour 10 mg Daily for 2 Days and 0 Hour Rx Instructions: see taper instructions Reglan 5 mg tablet 5 mg PO DAILY Qty: 30 0RF Ensure High Protein Liquid 1 ea PO .each meal 30 Days Qty: 5688 0RF Continued Breztri Aerosphere 160-9-4.8 mcg/actuation HFA aerosol inhaler 2 inh INHALATION BID Qty: 10.7 5RF albuterol sulfate [ProAir HFA] 90 mcg/actuation Hfa Aerosol Inhaler 2 puff INHALATION Q6H PRN (Reason: Shortness Of Breath) fluticasone propionate 50 mcg/actuation Mobile,Suspension 1 spray INTRANASAL DAILY Rx Instructions: administer into each nostril Changed furosemide 40 mg tablet 40 mg PO DAILY PRN (Reason: swelling) Qty: 10 0RF metoprolol tartrate 50 mg tablet 50 mg PO BID Qty: 90 5RF Discontinued amlodipine 10 mg tablet 10 mg PO DAILY Qty: 90 3RF aspirin 81 mg Tablet,Delayed Release (Dr/Ec) 81 mg PO QAM naproxen sodium [Aleve] 220 mg Capsule 440 mg PO BID PRN (Reason: Pain) potassium chloride 10 mEq tablet extended release 10 meq PO BID sulfamethoxazole-trimethoprim 800-160 mg tablet 2 tab PO BID furosemide 80 mg tablet 80 mg PO BID Discharge Orders: Discharge Order (Routine); Ordered 11/27/23 Ordered By: Rai Wheeler Referrals: [facility] [Provider Group] Jason Harper, [Primary Care Provider] - Brent Cummings MD [Physician] - 1 month [facility], [Staff Physician] - 1-3 days Discharge Diet: As Directed Discharge Activity: Resume usual activity and Increase activity as tolerated Patient Instructions: Metoclopramide (By mouth) (Metozolv ODT, PCP 100, Reglan), Sucralfate (By mouth) (Carafate), Trazodone (By mouth) (Desyrel, Desyrel Dividose, Oleptro, Trazamine), Prednisone (By mouth) (predniSONE Intensol, Prednicot, Deltasone, Lars), Nystatin (By mouth) (First - Mcrae's Mouthwash, First - Susan's..., Cefazolin (By injection) (Novaplus ceFAZolin), Pantoprazole (By mouth) (Protonix), Lidocaine Patch (On the skin) (Lidoderm, Novaplus Lidocaine), Heart Failure (DC), Acute Wound Care (DC), Debridement (DC), CHF Stoplight, GI Discharge Instructions, Opioid Safety, Post Anesthesia Care Activity Restrictions/Additional Instructions: Aspiration precautions. Going forward he should be on dysphagia level 5 diet with moderately thickened pur?e with protein shakes with each meal. He should be on IV cefazolin 3 times a day till 12/05. He should follow-up with wound care within next 1 to 3 days. Please repeat CBC and CMP next 1 week. Discharge Attestations 2 Time Spent in Discharge Care*: greater than 30 min Specific Discharge Activities: educating patient, educating and/or supporting family/caregiver, discussing with pcp/other providers, discussing with casework manager/social workers/dc planners, documenting/other paperwork and evaluating patient/reviewing data Status at Discharge: Cognitive status at discharge: cognitively intact , B ehavioral status at discharge: cooperative , Functional status at discharge: u ses cane/walker , Overall status at discharge: patient is progressing back to baseline Quality Metrics Clinical Quality Measures [ No reported AMI, CVA or VTE this stay] Coding Level of Care Code 52797 Total time (in minutes) for Discharge: 60 Diagnoses Hypoxia R09.02 Chronic systolic congestive heart failure, NYHA class 3 I50.22 Congestive heart failure chronicity: chronic Congestive heart failure type: systolic Gastric ulcer K25.9 ALTA (acute kidney injury) N17.9 CKD (chronic kidney disease) N18.9 COPD (chronic obstructive pulmonary disease) J44.9 Smoker F17.200 Pulmonary emphysema J43.9 Sepsis A41.9 Cellulitis L03.90 Necrotizing fasciitis due to Streptococcus pyogenes M72.6; B95.0
[2023-11-27 14:35] LABS: SARS Covid-2 Antigen negative (Negative)
[2023-11-27] MEDS: trazodone 50 mg Tablet 25 MG PO (21:46)
[2023-11-28] VITALS (13 sets, daily range): BP systolic 123–153; BP diastolic 74–87; PULSE 63–109; RESP 14–21; TEMP 36.4–37.1; O2SAT 91–95
[2023-11-28] MEDS: ipratropium 0.5 mg/2.5 mL Neb INHALATION ×4 (00:12→11:34)
[2023-11-28] MEDS: levalbuterol 0.63 mg/3 mL Neb INHALATION ×4 (00:12→11:34)
[2023-11-28] MEDS: ondansetron 2 mg/ML SDV 2 mL 4 MG IVP (02:34)
--- NOTE | 2023-11-28 02:57 | USR_ITS ---
PROCEDURE INFORMATION: Exam: US Duplex Left Upper Extremity Veins, Limited Exam date and time: 11/28/2023 3:19 AM Age: 67 years old Clinical indication: Other: Anasarca , left upper extremity edema 2 days S/P lue picc line. Patient HX: The patient has profound edema in all four limbs as well as anasarca with subcutaneous edema to the point of visible fluid beneath the superficial skin layers with oozing of the skin. ; Additional info: Lue swelling, S/P picc line TECHNIQUE: Imaging protocol: Real-time duplex ultrasound of the left extremity with 2-D [place] scale, color Doppler flow and spectral waveform analysis including responses to compression and other maneuvers (when performed) with image documentation. Limited exam focused on the left upper extremity veins. COMPARISON: CT neck w con* [id number] 11/22/2023 4:42 PM FINDINGS: Left deep veins: PICC line is noted in the left subclavian vein, left basilic vein. Superficial veins: Unremarkable. Visualized cephalic and basilic veins are patent without thrombus. Soft tissues: Unremarkable. US/[place] [id number] IMPRESSION: 1. PICC line noted in the left subclavian vein and left basilic vein. No evidence of thrombosis. 2. Diffuse soft tissue edema is present without concerning Doppler signal.
[2023-11-28] MEDS: pantoprazole 40 mg SDV IVP ×2 (06:24→17:42)
[2023-11-28] MEDS: ceFAZolin 2,000 MG in sodium chloride 0.9% (plus) 50 ML 100 MG IV ×2 (06:25→13:52)
[2023-11-28] MEDS: sucralfate 1 gm Tablet PO ×2 (06:25→11:01)
[2023-11-28] MEDS: budesonide 0.5 mg/2 mL Neb INHALATION (07:31)
[2023-11-28 07:48] LABS: Magnesium 2.2 mg/dL (1.7-2.3); Phosphorus 3.5 mg/dL (2.5-4.5)
[2023-11-28] MEDS: nystatin 100,000 unit/mL UDC 5 mL 100000 UNIT PO ×3 (08:44→17:42)
[2023-11-28] MEDS: methylPREDNISolone sod succ 40 mg/mL INJ 30 MG IVP (08:44)
[2023-11-28] MEDS: heparin 5,000 unit/mL INJ 1 mL 5000 UNIT SUBCUT (08:44)
[2023-11-28] MEDS: multivitamin therapeutic Tablet 1 TAB PO (08:45)
[2023-11-28] MEDS: metoprolol tartrate 25 mg Tablet 50 MG PO ×2 (08:45→17:41)
[2023-11-28] MEDS: lidocaine 5% Patch 1 PATCH TOPICAL (08:45)
[2023-11-28 08:50] LABS: Basophils % 0.2 %; Hematocrit 29.8 % (37-53); Lymphocytes # 0.6 10^3/uL (0.8-4.8); Lymphocytes % 2.8 %; Mean Corpuscular HGB Conc 28.2 g/dL (30-55); Mean Corpuscular Hemoglobin 28.3 pg (27-33); Mean Corpuscular Volume 100.3 fl (82-101); Mean Platelet Volume 12.2 fL (7.4-10.4); Monocytes # 0.9 10^3/uL (0.2-0.9); Monocytes % 4.4 %; Neutrophils # 18.78 10^3/uL (1.8-7.7); Neutrophils % 91.2 %; Nucleated Red Blood Cells % 0 %; Platelet Count 426 10^3/cmm (157-399); Red Blood Count 2.97 10^6/uL (3.85-5.65); Red Cell Distribution Width 17.6 % (12.1-15.1); White Blood Count 20.59 10^3/uL (3.29-11.43)
[2023-11-28] MEDS: FUROsemide 10 mg/mL SDV 4mL 40 MG IVP (09:05)
[2023-11-28 09:30] LABS: Alanine Aminotransferase 21 U/L (0-41); Albumin Level 2.8 g/dL (3.5-5.2); Alkaline Phosphatase 91 U/L (40-130); Aspartate Amino Transferase 50 U/L (0-40); Blood Urea Nitrogen 33 mg/dL (8-23); Carbon Dioxide 27 mmol/L (22-29); Chloride 108 mmol/L (98-107); Globulin 3.7 g/dL (1.3-4.6); Glomerular Filtration Rate 60.6 mL/min (90-130); Glucose 127 mg/dL (65-115); Osmolality Calculated 307 mOsm/kg (285-295); Sodium 144 mmol/L (136-145); Total Bilirubin 0.2 mg/dL (0.15-1.2); Total Protein 6.5 g/dL (6.6-8.7)
--- NOTE | 2023-11-28 14:34 | PM.PN ---
Subjective Subjective: No acute events overnight. Patient was to be discharged to [facility] yesterday but discharge was declined by the long term because they could not get a private room for him given his history of necrotizing fasciitis to it was communicated to them that patient does not need any isolation anymore as per CDC guidelines. Today morning patient seen comfortably sitting in bed, patient had taken his oxygen off and saturation was in low 80s coming back up to mid 90s on 3 L of oxygen supplementation. Patient denies any difficulty breathing though had mild tachycardia during the episode. Love catheter was removed yesterday. Medications: Reviewed: Yes Medication Review Details: Zosyn meropenem 11/14-11/24 Vancomycin Clindamycin 11/15-11/24 Levaquin Vitals/I&O/Wt Last Vital Signs Temp 97.6 F 11/28/23 12:00 Pulse 93 11/28/23 12:00 Resp 16 11/28/23 12:00 BP 123/81 11/28/23 12:00 Pulse Ox 91 11/28/23 12:00 O2 Del Method Nasal Cannula 11/28/23 12:00 O2 Flow Rate 3 11/28/23 11:31 FiO2 40 11/26/23 20:58 11/27/23 11/28/23 11/28/23 22:59 06:59 14:59 Intake Total 720 / 2770.0 400 / 3170.0 Output Total 250 / 550 400 / 950 1700 / 1700 Balance 470 / 2220.0 0 / 2220.0 -1700 / -1700 Weight last 48 hrs Weight 103.464 kg Weight 101.378 kg Physical Exam Narrative: Sitting up in bed Const: COMMON NORMALS: patient oriented x3 and alert GENERAL APPEARANCE: cooperative ORIENTATION/CONSCIOUSNESS: Yes awake HENMT: COMMON NORMALS: oropharynx normal Neck/C-Spine: COMMON NORMALS: no JVD Resp: COMMON NORMALS: normal respiratory effort and clear to auscultation bilaterally AUSCULTATION: clear to auscultation bilaterally, rhonchi and wheezes left lower Cardio: COMMON NORMALS: no JVD, regular rhythm, S1 normal heart sound present, S2 normal heart sound present and No murmurs present (Cardio) RHYTHM: regular rhythm HEART SOUNDS: S1 normal heart sound present and S2 normal heart sound present GI: COMMON NORMALS: Normal to inspection, nondistended, normoactive bowel sounds present, Soft to palpation and non-tender PALPATION: Yes Soft to palpation Extremity: COMMON NORMALS: no joint enlargement and no pedal edema NARRATIVE EXTREMITY EXAM: Severe left ankle tenderness. No redness, open wounds, fluctuance. OTHER: Examined other joints, no pain or swelling. Neuro: COMMON NORMALS: patient oriented x3 and moves all extremities SENSORIUM/ORIENTATION: Yes alert Skin: COMMON NORMALS: no rashes or lesions noted GENERAL SKIN EXAM: no rashes or lesions noted OTHER: Urinary Catheter Management: Love: Cath Placed During This Visit: yes, but has since been removed by the nurse Reason for Continuing Indwelling Catheter: Not indwelling catheter Urinary Catheter Date of Insertion: 11/25/23 Urinary Catheter Time of Insertion: 14:45 Date Urinary Catheter Removed: 11/27/23 Time Urinary Catheter Discontinued: 12:00 Data 11/28/23 07:07 11/28/23 07:07 A&P Assessment and plan (1) Hypoxia: Most likely in setting of poor inspiratory response along with high concerns for aspiration pneumonitis as well. Appreciate speech therapy and modified barium swallow results. Patient will always be at high risk of aspiration. Also found to have mild esophageal dysmotility. Start on Reglan 5 mg twice daily. Diet advanced to dysphagia level 4 with extremely thick pur?e along with aspiration precautions. Oxygen supplementation keeping saturation over 88%. Aggressive pulmonary toilet. Out of bed to chair. Continue with chest vest and incentive spirometry. Monitor fluid status. IV Lasix 40 mg today. Keep net euvolemic. Continue with IV fluids with D5 NS at 50 cc/h for now. Strict input output charting. Continue with Pulmicort twice daily, DuoNebs every 6 hour. Will wean down Solu-Medrol to 30 mg daily today. Will plan to stop Solu-Medrol in the next 3 to 4 days. (2) CHF (congestive heart failure), NYHA class III: Qualifiers: Congestive heart failure type: systolic Congestive heart failure chronicity: chronic Qualified Code(s): I50.22 - Chronic systolic (congestive) heart failure (3) Gastric ulcer: Hemoglobin stable. Continue with IV Protonix twice daily. (4) ALTA (acute kidney injury): Resolved. Strict input output charting, daily weights. Replace Love. Has persistent hyponatremia has resolved. Monitor BMP daily. (5) CKD (chronic kidney disease): (6) COPD (chronic obstructive pulmonary disease): (7) Smoker: (8) Pulmonary emphysema: (9) Sepsis: Patient presents with sepsis presumably from his right lower extremity cellulitis. Sepsis has resolved. Septic shock has resolved. Patient continues to have leukocytosis, severe anemia with borderline blood pressures and tachycardia. Maintain mean artery pressure over 65. Maintain saturation over 90%. Strict input output charting, daily weights. (10) Cellulitis: (11) Necrotizing fasciitis due to Streptococcus pyogenes: Plan Plan for the day: Continue with dysphagia level diet. PT and speech therapy. Aggressive pulmonary toilet with chest vest I-S and Acapella. Out of bed. Wean Solu-Medrol as above. D5W at 50 cc/h. TPN weaned off. Monitor BMP daily. IV Lasix 40 mg one-time today. Reglan 5 mg IV twice daily. Continue with IV antibiotics for overall 2 weeks with last dose on 12/08. Discharge planning: Plan to discharge to SNF once accepted. Patient has been accepted at [facility]. Awaiting authorization. Analgesia:Dilaudid 1 mg every 6 hours orally, 0.4 every 4 hours as needed Glycemic control: Not needed. Nutrition: Dysphagia level 4 with extremely thick and pur?ed diet CODE STATUS:Discussed in detail with the patient. Son will be the DPOA. Patient would want to remain full code for now. But does not want to remain on life support for long. PUD prophylaxis: Full dose Protonix twice daily DVT prophylaxis: SCDs. Hold off on medical prophylaxis given GI bleed Discharge planning: Plan to discharge to SNF for further rehabitation, aggressive wound care, IV antibiotics. This documentation was created by [employer] terry cloth cutter hand software. Every effort was made to ensure accuracy of terry cloth cutter hand. Any obvious errors or omissions should be clarified with the author of the document. Attestations Medical Necessity Statement*: Requires further hospitalization for a patient who requires aggressive wound care in setting of necrotizing fasciitis post debridement, hypoxia in setting of physical deconditioning and aspiration pneumonitis while safe discharge planning is sought, resolving ALTA Diagnoses Hypoxia R09.02 Chronic systolic congestive heart failure, NYHA class 3 I50.22 Congestive heart failure type: systolic Congestive heart failure chronicity: chronic Gastric ulcer K25.9 ALTA (acute kidney injury) N17.9 CKD (chronic kidney disease) N18.9 COPD (chronic obstructive pulmonary disease) J44.9 Smoker F17.200 Pulmonary emphysema J43.9 Sepsis A41.9 Cellulitis L03.90 Necrotizing fasciitis due to Streptococcus pyogenes M72.6; B95.0
--- NOTE | 2023-11-28 15:36 | PC.OT ---
OT tx attempted in a.m. per pt request to do OT earlier in the day . Therapist arrived 0848 and pt appeared somewhat confused. he declined OT and requested to do it later . Nursing arrived to provide medications. Pt encouraged to eat his breakfast after his meds and pt at first declined but nursing reports pt did eat. OT will be attempted later today if possible.
--- NOTE | 2023-11-28 18:35 | PC.NURSE ---
report phoned to [facility].transferred via ems at this time.
== END 2023-11-28 18:35 | disposition skilled nursing facility (03) | DRG 853 ==
LOC: ER 06:21 → ICU 11:09 → CSU 11-24 13:45
PROVIDERS: Emergency Medicine; Family Medicine; Internal Medicine; Internal Medicine Pulmonary Disease; Podiatrist Foot & Ankle Surgery; Surgery; Admitting Provider Family Medicine; Emergency Provider Family Medicine; PCP Family Medicine; Visit Provider Student in an Organized Health Care Education/Training Program
PROC: 0DJ08ZZ Inspection of Upper Intestinal Tract, Via Natural or Artificial Opening Endoscopic (ICD-10-PCS; CPT 43235; principal; 2023-11-12 12:15)
PROC: 0JBN0ZZ Excision of Right Lower Leg Subcutaneous Tissue and Fascia, Open Approach (ICD-10-PCS; principal; 2023-11-14 12:45)
PROC: 0S9 Lower Joints, Drainage (ICD-10-PCS; principal; 2023-11-21 11:50)
DX: A41.9 Sepsis, unspecified organism (principal); J69.0 Pneumonitis due to inhalation of food and vomit; J96.01 Acute respiratory failure with hypoxia; R65.21 Severe sepsis with septic shock; K25.0 Acute gastric ulcer with hemorrhage; M72.6 Necrotizing fasciitis; N17.9 Acute kidney failure, unspecified; I50.22 Chronic systolic (congestive) heart failure; E87.20 Acidosis, unspecified; G93.40 Encephalopathy, unspecified; D62 Acute posthemorrhagic anemia; L03.115 Cellulitis of right lower limb; K57.32 Diverticulitis of large intestine without perforation or abscess without bleeding; N39.0 Urinary tract infection, site not specified; E87.0 Hyperosmolality and hypernatremia; I47.29 Other ventricular tachycardia; I24.89 Other forms of acute ischemic heart disease; L02.416 Cutaneous abscess of left lower limb; R13.10 Dysphagia, unspecified; I44.7 Left bundle-branch block, unspecified; J43.9 Emphysema, unspecified; Z99.81 Dependence on supplemental oxygen; I11.0 Hypertensive heart disease with heart failure; Z87.891 Personal history of nicotine dependence; K20.90 Esophagitis, unspecified without bleeding; B96.20 Unspecified Escherichia coli [E. coli] as the cause of diseases classified elsewhere; R74.8 Abnormal levels of other serum enzymes; K80.20 Calculus of gallbladder without cholecystitis without obstruction; B95.0 Streptococcus, group A, as the cause of diseases classified elsewhere; B95.61 Methicillin susceptible Staphylococcus aureus infection as the cause of diseases classified elsewhere; B95.2 Enterococcus as the cause of diseases classified elsewhere; B96.89 Other specified bacterial agents as the cause of diseases classified elsewhere; M10.072 Idiopathic gout, left ankle and foot; T39.315A Adverse effect of propionic acid derivatives, initial encounter; M65.872 Other synovitis and tenosynovitis, left ankle and foot; E87.5 Hyperkalemia
CPT/HCPCS: 36415; 36416; 36430; 36556; 36573; 36592; 36600; 43239; 51702; 70450; 70491; 71045; 71250; 73610; 73700; 74176; 74230; 76705; 80048; 80051; 80053; 80307; 80503; 81001; 82140; 82274; 82330; 82533; 82550; 82607; 82746; 82803; 82805; 82945; 82955; 82962; 83540; 83550; 83605; 83690; 83735; 83880; 84100; 84145; 84484; 84550; 85007; 85014; 85018; 85025; 85048; 85610; 86140; 86850; 86900; 86920; 86927; 87040; 87070; 87075; 87077; 87086; 87176; 87186; 87205; 87426; 87493; 87635; 87641; 88304; 88305; 88342; 92507; 92526; 92610; 92611; 93005; 93306; 93926; 93971; 94640; 94660; 94669; 96372; 96376; 97110; 97116; 97161; 97166; 97530; 97535; 99285; C1751; C9113; J0171; J0330; J0690; J1170; J1644; J1756; J1940; J1956; J2060; J2185; J2250; J2354; J2371; J2405; J2543; J2550; J2704; J2765; J2783; J2920; J3010; J3370; J3480; J3490; J3535; J7030; J7042; J7050; J7060; J7070; J7614; J7626; J7644; P9016; P9017; P9040; P9046; Q9967

== ENCOUNTER → 2023-12-03 09:06 | Outpatient (BNVA) | payer MEDICARE, MEDICAID, SELFPAY | PROVIDERS: PCP Family Medicine; Visit Provider Thoracic Surgery (Cardiothoracic Vascular Surgery) | DX: L97.822 Non-pressure chronic ulcer of other part of left lower leg with fat layer exposed (principal); L97.812 Non-pressure chronic ulcer of other part of right lower leg with fat layer exposed | CPT/HCPCS: 97597; 97598; 99213; A6253 ==

== ENCOUNTER 2023-12-08 22:57 | Inpatient (IN) | payer MEDICARE, MEDICAID, SELFPAY ==
[2023-12-08 22:59] VITALS: BP 120/68; PULSE 97; RESP 18; TEMP 36.4; O2SAT 99; BMI 34.4
--- NOTE | 2023-12-08 23:02 | CTR_ITS ---
PROCEDURE INFORMATION: Exam: CT Head Without Contrast Exam date and time: 12/08/2023 11:37 PM Age: 68 years old Clinical indication: Syncope and collapse TECHNIQUE: Imaging protocol: Computed tomography of the head without contrast. Radiation optimization: All CT scans at this facility use at least one of these dose optimization techniques: automated exposure control; mA and/or kV adjustment per patient size (includes targeted exams where dose is matched to clinical indication); or iterative reconstruction. COMPARISON: CT head wo con* [id number] 11/11/2023 5:26 AM RADIATION DOSE METRICS: Total DLP (mGy-cm): 1143 FINDINGS: Brain: No acute infarct. No hemorrhage. Stable involutional changes of the brain. No mass effect. 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 Cerebral ventricles: Stable ventricular size. No ventriculomegaly. Paranasal sinuses: No significant inflammation. No fluid levels. Mastoid air cells: Visualized mastoid air cells are well aerated. Bones/joints: Unremarkable. No acute fracture. Soft tissues: Unremarkable. CT/CT head wo con* [id number] IMPRESSION: No acute intracranial abnormality.
--- NOTE | 2023-12-08 23:02 | XRR_ITS ---
PROCEDURE INFORMATION: Exam: XR Chest Exam date and time: 12/08/2023 11:15 PM Age: 68 years old Clinical indication: Other: Syncope TECHNIQUE: Imaging protocol: Radiologic exam of the chest. Views: 1 view. COMPARISON: CR XR chest 1V portable [id number] 11/25/2023 12:16 PM FINDINGS: Tubes, catheters and devices: Left PICC line tip in the SVC is unchanged. Right internal jugular venous catheter has been removed. Lungs: There is improving and now minimal residual bibasilar atelectasis/infiltrates. Persistent mild consolidation right mid lung also improved. No new consolidation. Pleural spaces: Small left pleural effusion is unchanged Heart/Mediastinum: Unchanged heart size. Bones/joints: Unchanged bones. XR/XR chest 1V portable [id number] IMPRESSION: Improving infiltrates with basilar predominance since the previous study. No new acute finding.
--- NOTE | 2023-12-08 23:03 | ECG_ITS ---
[facility] Test Date: 2023-12-08 Pat Name: Peter Herrmann Department: Room: Gender: Male Network Liaison: : 1955 Requested By: Arslan Moraes Order Number: [id number] Lorri MD: Juvenal Lau M.D. Measurements Intervals [place] Rate: 148 P: 0 GA: 0 QRS: 37 QRSD: 96 T: 261 QT: 269 QTc: 423 Interpretive Statements ATRIAL FIBRILLATION WITH RAPID VENTRICULAR RESPONSE WITH ABERRANT CONDUCTION OR VENTRICULAR PREMATURE COMPLEXES NONSPECIFIC ST & T-WAVE ABNORMALITY Compared to ECG 11/20/2023 04:24:23 Ventricular premature complex(es) now present Aberrant conduction of supraventricular beat(s) now present Sinus tachycardia no longer present T-wave abnormality still present Electronically Signed On 12-09-2023 9:44:30 CORPORATE COMPLIANCE DIRECTOR by Juvenal Lau M.D. [id number]
--- NOTE | 2023-12-08 23:04 | ED_ITS ---
HPI - General Adult 2 General: Chief complaint: ER Hold Stated complaint: SYNCOPE Time Seen by Provider: 12/08/23 22:58 Source: patient Mode of arrival: ambulatory Limitations: no limitations History of Present Illness: 68-year-old male is here from nursing [facility] he had a recent admission for necrotizing fasciitis which she is currently on IV antibiotics on through a PICC line and also had acute kidney injury as well he has a history of CHF. Patient states he had some diarrhea and then had a syncopal event witnessed at the senior living he states that he awoke it had some confusion he states he is feeling back to his baseline currently per EMS senior living states that he is hypotensive in the 90s blood pressure is now 120/68. He denies any pain anywhere denies any chest pain. Associated symptoms: Reports syncope; Deny chest pain, dyspnea, headache(s), nausea, rash or vomiting Review of Systems 2 Const: Reports: fatigue; Denies: fever(s), chills, body aches or change in appetite ENMT: Denies: throat pain or dental pain Card: Reports: syncope; Denies: chest pain Resp: Denies: dyspnea GI: Reports: diarrhea; Denies: abdominal pain, nausea or vomiting Musc: Denies: neck pain or back pain Skin/Breast: Denies: rash Neuro: Denies: headache(s) PFSH ED 2 PFSH: Medical History Smoker Esophageal dysmotility Legionella pneumonia CHF (congestive heart failure), NYHA class III LBBB (left bundle branch block) COPD (chronic obstructive pulmonary disease) HTN (hypertension) Surgical History No history of previous surgery Family History Other Hypertension Denies family history of Diabetes CAD (coronary artery disease) Clotting disorder Dementia Chronic kidney disease (CKD) Suicide Anesthesia complication Bleeding disorder Lung disease Cancer Stroke Social History Smoking and tobacco/nicotine status: former use of tobacco/nicotine Quit status (tobacco/nicotine): has quit using Alcohol intake: former Substance/Drug Use: current Other substance/drug use details: No inhalation. Housing: House Physical Exam 2 Const: COMMON NORMALS: patient oriented x3 GENERAL APPEARANCE: ill appearing HENMT: COMMON NORMALS: normocephalic and atraumatic HEAD & SCALP: n ormocephalic and atraumatic Eye: COMMON NORMALS: conjunctivae normal CONJUNCTIVA: Yes conjunctivae normal Neck/C-Spine: COMMON NORMALS: full ROM and supple Chest: COMMONS NORMALS: normal inspection of the chest and normal palpation of entire chest wall Resp: COMMON NORMALS: normal respiratory effort, No retractions, No use of accessory muscles and clear to auscultation bilaterally AUSCULTATION: clear to auscultation bilaterally Cardio: COMMON NORMALS: No murmurs present (Cardio) RATE: tachycardic R HYTHM: abnormal rhythm irregularly irregular GI: COMMON NORMALS: Normal to inspection, nondistended, normoactive bowel sounds present, Soft to palpation, non-tender and no masses PALPATION: Yes Soft to palpation Extremity: COMMON NORMALS: normal to inspection and full ROM Neuro: COMMON NORMALS: patient oriented x3, moves all extremities and no focal motor deficits Psych: COMMON NORMALS: mental status grossly normal, Normal thought process present and cooperative THOUGHT PROCESS: Normal thought process present Skin: COMMON NORMALS: no rashes or lesions noted and no wounds GENERAL SKIN EXAM: no rashes or lesions noted Course 2 Vital Signs: Vital signs: Vital Signs Temperature 97.5 F L 12/08/23 22:59 Pulse Rate 103 H 12/09/23 00:46 Respiratory Rate 14 12/09/23 00:46 Blood Pressure 118/44 12/09/23 00:46 Pulse Oximetry 94 12/08/23 23:30 Oxygen Delivery Me thod Nasal Cannula 12/09/23 00:51 Oxygen Flow Rate 4 12/09/23 00:53 MDM - General Adult Medical Decision Making Patient presents here with syncopal event he is found to be in A-fib with RVR here did start him on amiodarone for rate control. He have an elevated white count he is afebrile here he has had elevated white counts in the past we will get blood cultures lactates normal start IV antibiotics I spoke to the hospitalist will admit to the cardiac stepdown. Medical Records I reviewed the patient's medical records. Lab Data I reviewed the patient's lab results. 12/08/23 23:11 12/08/23 23:11 Radiology Impressions Chest X-Ray 12/08/23 23:02 IMPRESSION: Improving infiltrates with basilar predominance since the previous study. No new acute finding. Head CT 12/08/23 23:02 IMPRESSION: No acute intracranial abnormality. Laboratory Results WBC 29.97 10^3/uL (3.29-11.43) H 12/08/23 23:11 RBC 2.94 10^6/uL (3.85-5.65) L 12/08/23 23:11 Hgb 8.60 g/dL (11.27-16.99) L 12/08/23 23:11 Hct 27.8 % (37-53) L 12/08/23 23:11 MCV 94.6 fl (82-101) 12/08/23 23:11 MCH 29.3 pg (27-33) 12/08/23 23:11 MCHC 30.9 g/dL (30-55) 12/08/23 23:11 RDW 17.5 % (12.1-15.1) H 12/08/23 23:11 Plt Count 323 10^3/cmm (157-399) 12/08/23 23:11 MPV 11.5 fL (7.4-10.4) H 12/08/23 23:11 Neut % (Auto) 94.5 % 12/08/23 23:11 Lymph % (Auto) 2.1 % 12/08/23 23:11 Emanuel % (Auto) 2.5 % 12/08/23 23:11 Eos % (Auto) 0.0 % 12/08/23 23:11 Baso % (Auto) 0.1 % 12/08/23 23:11 Neut # (Auto) 28.31 10^3/uL (1.8-7.7) H 12/08/23 23:11 Lymph # (Auto) 0.6 10^3/uL (0.8-4.8) L 12/08/23 23:11 Emanuel # (Auto) 0.7 10^3/uL (0.2-0.9) 12/08/23 23:11 Eos # (Auto) 0.0 10^3/uL (0.0-0.8) 12/08/23 23:11 Baso # (Auto) 0.0 10^3/uL (0.0-0.1) 12/08/23 23:11 Nucleated RBC % (auto) 0 % 12/08/23 23:11 Nucleated RBCs # 0.0 /100WBC 12/08/23 23:11 ESR 16 mm/hr (0-10) H 12/08/23 23:11 PT 16.90 SECONDS (12.1-14.9) H 12/08/23 23:11 INR 1.33 (0.8-1.2) H 12/08/23 23:11 Sodium 132 mmol/L (136-145) L 12/08/23 23:11 Potassium 3.9 mmol/L (3.5-5.1) 12/08/23 23:11 Chloride 90 mmol/L (98-107) L 12/08/23 23:11 Carbon Dioxide 37 mmol/L (22-29) H 12/08/23 23:11 Anion Gap 8.9 (5-19) 12/08/23 23:11 BUN 42 mg/dL (8-23) H 12/08/23 23:11 Creatinine 1.2 mg/dL (0.7-1.2) 12/08/23 23:11 GFR Calculation 60.4 mL/min (90-130) L 12/08/23 23:11 Glucose 155 mg/dL (65-115) H 12/08/23 23:11 Calculated Osmolality 288 mOsm/kg (285-295) 12/08/23 23:11 Lactic Acid 1.3 mmol/L (0.5-2.2) 12/08/23 23:11 Calcium 7.9 mg/dL (8.5-10.5) L 12/08/23 23:11 Magnesium 2.8 mg/dL (1.7-2.3) H 12/08/23 23:11 Total Bilirubin 0.2 mg/dL (0.15-1.2) 12/08/23 23:11 AST 10 U/L (0-40) 12/08/23 23:11 ALT < 5 U/L (0-41) 12/08/23 23:11 Alkaline Phosphatase 95 U/L (40-130) 12/08/23 23:11 C-Reactive Protein 29.9 mg/L (0.0-4.9) H 12/08/23 23:11 NT-Pro-B Natriuret Pep 6193 pg/mL (0-125) H 12/08/23 23:11 Total Protein 5.6 g/dL (6.6-8.7) L 12/08/23 23:11 Albumin 2.8 g/dL (3.5-5.2) L 12/08/23 23:11 Globulin 2.8 g/dL (1.3-4.6) 12/08/23 23:11 Urine Color Yellow (Yellow) 12/08/23 23:17 Urine Appearance Cloudy (CLEAR) A 12/08/23 23:17 Urine pH 6.5 (5-7) 12/08/23 23:17 Ur Specific Bradshaw 1.005 (1.005-1.030) 12/08/23 23:17 Urine Protein Trace (Negative) 12/08/23 23:17 Urine Glucose (UA) Trace (Normal) H 12/08/23 23:17 Urine Ketones Negative (Negative) 12/08/23 23:17 Urine Blood 3+ (Negative) H 12/08/23 23:17 Urine Nitrate Negative (Negative) 12/08/23 23:17 Urine Bilirubin Neg (Negative) 12/08/23 23:17 Urine Urobilinogen Neg mg/dL (Negative) 12/08/23 23:17 Ur Leukocyte Esterase 2+ (Negative) H 12/08/23 23:17 Urine RBC 15-25 /hpf (0-2) H 12/08/23 23:17 Urine WBC 25-40 /hpf (0-5) H 12/08/23 23:17 Ur Squamous Epith Cells None /hpf (0-5) 12/08/23 23:17 Amorphous Sediment Not Reportable 12/08/23 23:17 Urine Bacteria 3+ /hpf (NONE) H 12/08/23 23:17 Urine Mucus 2+ /hpf 12/08/23 23:17 All radiology interpretation(s) finalized by discharge EKG Data EKG 1: I personally reviewed and interpreted this EKG as follows: EKG interpretation date: 12/08/23 EKG interpretation time: 23:10 Interpretation: afib with rvr hr [address] elevation qrs 96 qtc 354 Computer generated interpretation: Chest X-Ray 12/08/23 23:02 IMPRESSION: Improving infiltrates with basilar predominance since the previous study. No new acute finding. Head CT 12/08/23 23:02 IMPRESSION: No acute intracranial abnormality. Discharge Plan Discharge Patient Disposition: Admitted As Inpatient Admit Provider: Bernadette Metcalf Clinical Impression: Atrial fibrillation with RVR, Syncope Condition: Stable Coding Level of Care Code ED [employer] for Kleber Shin
[2023-12-08 23:15] VITALS: PULSE 160; RESP 16; O2SAT 97
[2023-12-08 23:20] LABS: Basophils % 0.1 %; Hematocrit 27.8 % (37-53); Lymphocytes # 0.6 10^3/uL (0.8-4.8); Lymphocytes % 2.1 %; Mean Corpuscular HGB Conc 30.9 g/dL (30-55); Mean Corpuscular Hemoglobin 29.3 pg (27-33); Mean Corpuscular Volume 94.6 fl (82-101); Mean Platelet Volume 11.5 fL (7.4-10.4); Monocytes # 0.7 10^3/uL (0.2-0.9); Monocytes % 2.5 %; Neutrophils # 28.31 10^3/uL (1.8-7.7); Neutrophils % 94.5 %; Nucleated Red Blood Cells % 0 %; Platelet Count 323 10^3/cmm (157-399); Red Blood Count 2.94 10^6/uL (3.85-5.65); Red Cell Distribution Width 17.5 % (12.1-15.1); White Blood Count 29.97 10^3/uL (3.29-11.43)
[2023-12-08] MEDS: amiodarone 150 MG/100 ML PREMIX 400 MG IV (23:22)
[2023-12-08] MEDS: sodium chloride 0.9% 500 ML IV (23:22)
[2023-12-08 23:26] LABS: Erythrocyte Sedimentation Rate 16 mm/hr (0-10)
[2023-12-08 23:29] LABS: INR 1.33 (0.8-1.2)
[2023-12-08 23:30] VITALS: PULSE 146; RESP 24; O2SAT 94
[2023-12-08 23:40] LABS: Alanine Aminotransferase < 5 U/L (0-41); Albumin Level 2.8 g/dL (3.5-5.2); Alkaline Phosphatase 95 U/L (40-130); Anion Gap 8.9 (5-19); Aspartate Amino Transferase 10 U/L (0-40); Blood Urea Nitrogen 42 mg/dL (8-23); Calcium 7.9 mg/dL (8.5-10.5); Carbon Dioxide 37 mmol/L (22-29); Chloride 90 mmol/L (98-107); Creatinine Clr Calc Pharmacy 67.2344; Globulin 2.8 g/dL (1.3-4.6); Glomerular Filtration Rate 60.4 mL/min (90-130); Glucose 155 mg/dL (65-115); Magnesium 2.8 mg/dL (1.7-2.3); Osmolality Calculated 288 mOsm/kg (285-295); Potassium 3.9 mmol/L (3.5-5.1); Sodium 132 mmol/L (136-145); Total Bilirubin 0.2 mg/dL (0.15-1.2); Total Protein 5.6 g/dL (6.6-8.7)
[2023-12-08 23:41] LABS: C Reactive Protein 29.9 mg/L (0.0-4.9)
[2023-12-08 23:45] VITALS: PULSE 132; RESP 18
[2023-12-08 23:47] LABS: Blood Urine 3+ (Negative); Glucose Urine UA Trace (Normal); Ketones Urine Negative (Negative); Protein Urine Trace (Negative); Specific Gravity, Urine 1.005 (1.005-1.030); Urine Appearance Cloudy (CLEAR); Urine Color Yellow (Yellow); pH Urine 6.5 (5-7)
[2023-12-08 23:48] LABS: Add Urine Microscopic? YES; Bilirubin Urine Neg (Negative); Leukocyte Esterase Urine 2+ (Negative); Nitrate Urine Negative (Negative); RBC Urine 15-25 /hpf (0-2); Urobilinogen Urine Neg (Negative); WBC Urine 25-40 /hpf (0-5)
[2023-12-08 23:49] VITALS: BP 68/47; PULSE 109; RESP 16
[2023-12-08 23:49] LABS: Add Urine Culture? Yes; Bacteria Urine 3+ /hpf; Mucus Urine 2+ /hpf
[2023-12-08 23:49] LABS: Lactic Sepsis W/Reflex 1.3 mmol/L (0.5-2.2)
[2023-12-08 23:52] VITALS: BP 92/69; PULSE 105; RESP 22
[2023-12-09] VITALS (122 sets, daily range): BP systolic 96–130; BP diastolic 42–84; PULSE 82–165; RESP 13–30; TEMP 36.8; O2SAT 77–100; BMI 34.7
[2023-12-09] MEDS: sodium chloride 0.9% 1,000 ML 999 ML IV (00:04)
[2023-12-09 00:18] LABS: NT Pro B Type Natriuretic Pept 6193 pg/mL (0-125)
--- NOTE | 2023-12-09 00:42 | PC.NURSE ---
Nurse noticed pt PICC line dressing was partially hanging and exposing PICC line. Nurse also noted date on dressing to be 2-4, pt states this is the day that PICC line was placed here by PICC nurse. Nurse provided PICC line dressing change using sterile technique
[2023-12-09] MEDS: piperacillin-tazobactam 3.375 GM in sodium chloride 0.9% (plus) 50 ML IV (00:46)
[2023-12-09] MEDS: vancomycin 1,000 MG in sodium chloride 0.9% 250 ML 250 MG IV (01:20)
--- NOTE | 2023-12-09 01:41 | PC.NURSE ---
Wound on left lower extremity cleaned and changed with 2x2, kerlix, and tape with assistance of Dr Metcalf.
--- NOTE | 2023-12-09 03:03 | PM.HP ---
Providers/Chief Complaint Admitting Physician: Bernadette Metcalf MD Primary Care Provider: Jason Harper DO Chief Complaint: SYNCOPE History of Present Illness Peter Herrmann is a 68 year old male who was discharged from the hospital on 03/17/2024 after a prolonged hospital stay here between November 11 to November 28, 2022. He had been admitted with sepsis related to necrotizing fasciitis of the right lower extremity. Hospital course was complicated by anemia requiring blood transfusion, endoscopic evaluation revealing gastric ulcers not actively bleeding, acute encephalopathy which was resolved by the time of discharge, acute kidney injury, hyperkalemia and acute gout. He underwent debridement of the right leg on November 14, 2023, cultures revealed MSSA, group A strep, Enterobacter cloacae. Patient received an extended course of treatment with meropenem, vancomycin and clindamycin while in the hospital, thereafter discharged on IV cefazolin which she completed on December 05, 2023. Patient confirms that his antibiotics were discontinued on December 05, however he still has his PICC line in place. He followed up with wound care clinic on December 03, 2023 where his wound was noted to be healing satisfactorily, consideration ongoing for skin grafting for which she has a follow-up with general surgery this week. He is brought to the emergency room today with a history of reported syncope at the alf earlier today. Per patient he did not lose consciousness at any time. He states that he was trying to get out of bed however it took him an extra effort since it was dark. He called for some help and as he was getting out of bed alf staff reported that he had an episode of syncope. He was brought to the ER where he was noted to be in A-fib with RVR. His heart rate was 160 with corresponding blood pressure of 68/47. With improvement in heart rate now down to between 90-1 1 3, his blood pressures are better with systolic between 92-1 1 8 mmHg. He is mentating well. No complaints of chest pain dyspnea palpitations. Denies any past history of known atrial fibrillation. Patient is noted to be having lower extremity edema, he states that he has been having swelling at the alf for which he is currently on Lasix. X-ray negative for any consolidation. Denies fever chills cough abdominal pain. He does report an episode of diarrhea this morning which he attributes to eating a lot of breakfast this morning. He states that he finally got his appetite back after stopping antibiotics and was able to have a full meal today. Review of Systems General: Reports: 10 or more systems reviewed and unremarkable except in HPI and below Const: Denies: fever(s), chills or body aches Eyes: Denies: change in vision, blurry vision or photophobia ENMT: Reports: hoarseness; Denies: throat pain, enlarged tonsils, odynophagia or nasal congestion Card: Denies: chest pain, palpitations, irregular heart rhythm, edema, swelling of feet/ankles, lightheadedness, pre-syncope, dyspnea on exertion or orthopnea Resp: Denies: dyspnea, productive cough, non-productive cough, wheezing, stridor, pain on inspiration, change in phlegm color, hemoptysis or chest congestion GI: Denies: abdominal pain, nausea, vomiting, hematemesis, coffee ground emesis, dysphagia, heartburn, diarrhea, constipation, GI cramping, change in stool character, hematochezia or melena : Denies: flank pain, dysuria, urinary frequency, urinary urgency, urinary hesitancy or hematuria Musc: Denies: neck pain, back pain, extremity pain, joint swelling, joint warmth or deformity Neuro: Denies: headache(s), numbness in extremities, weakness in extremities, sensory changes, difficulty walking, frequent falls, dizziness, vertigo, behavioral changes, Slurred speech present or seizure-like activity Psych: Denies: anxiety, depression, suicidal ideation or homicidal ideation Endo: Denies: polyuria, polydipsia, tired all the time, cold intolerance or hot flashes Valeriy/Lymph: Denies: easy bruising or easy bleeding Medications/Allergies Home Medications Medication Instructions Recorded Confirmed Last Taken Type albuterol sulfate 90 mcg/actuation 2 puff inhalation Q6H PRN 02/01/21 11/11/23 02/11/21 History aerosol inhaler (ProAir HFA) Shortness Of Breath fluticasone propionate 50 1 spray intranasal DAILY 06/06/23 11/11/23 06/06/23 History mcg/actuation nasal spray,suspension budesonide 160 mcg-glycopyr 9 2 inh inhalation BID #10.7 grams 11/13/23 11/15/23 Unknown Rx mcg-formot 4.8 mcg/actuation HFA inhaler (Breztri Aerosphere) food supplemt, lactose-reduced 1 ea PO .each meal 30 days #5,688 11/27/23 Unknown Rx (Ensure High Protein oral liquid) mL furosemide 40 mg tablet 40 mg PO DAILY PRN swelling #10 11/27/23 11/11/23 11/10/23 Rx tabs lidocaine 5 % topical patch 1 patch topical [id number] #14 ea 11/27/23 Unknown Rx metoclopramide HCl 5 mg tablet 5 mg PO DAILY #30 tabs 11/27/23 Unknown Rx (Reglan) metoprolol tartrate 50 mg tablet 50 mg PO BID #90 tabs 11/27/23 11/15/23 Unknown Rx multivitamin with folic acid 400 1 tab PO DAILY #60 tabs 11/27/23 Unknown Rx mcg tablet (Thera) nystatin 100,000 unit/mL oral 100,000 unit PO QID 30 days #120 mL 11/27/23 Unknown Rx suspension pantoprazole 40 mg tablet,delayed 40 mg PO BID 30 days #60 tabs 11/27/23 Unknown Rx release (Protonix) prednisone 10 mg tablet See Taper PO DIRECTED #42 tabs 11/27/23 Unknown Rx sucralfate 1 gram tablet 1 g PO AC&BEDTIME 30 days #120 tabs 11/27/23 Unknown Rx trazodone 50 mg tablet 25 mg (1/2 x 50 mg) PO BEDTIME #30 11/27/23 Unknown Rx tabs Allergies Allergy/AdvReac Type Severity Reaction Status Date / Time acetaminophen [From Tylenol] Allergy Unknown Verified 12/08/23 23:07 Opioids - Morphine Analogues Allergy ADR-Halluci Verified 12/08/23 23:07 [facility] PFS Acute PFSH: Medical History Smoker Esophageal dysmotility Legionella pneumonia CHF (congestive heart failure), NYHA class III LBBB (left bundle branch block) COPD (chronic obstructive pulmonary disease) HTN (hypertension) Surgical History No history of previous surgery Family History Other Hypertension Denies family history of Diabetes CAD (coronary artery disease) Clotting disorder Dementia Chronic kidney disease (CKD) Suicide Anesthesia complication Bleeding disorder Lung disease Cancer Stroke Social History Smoking and tobacco/nicotine status: former use of tobacco/nicotine Quit status (tobacco/nicotine): has quit using Alcohol intake: former Substance/Drug Use: current Other substance/drug use details: No inhalation. Housing: House Vitals/I&O/Wt Last Vital Signs Temp 97.5 F L 12/08/23 22:59 Pulse 113 H 12/09/23 02:48 Resp 17 12/09/23 02:48 BP 96/70 12/09/23 02:48 Pulse Ox 98 12/09/23 02:48 O2 Del Method Nasal Cannula 12/09/23 02:48 O2 Flow Rate 4 12/09/23 02:48 12/08/23 12/08/23 12/09/23 14:59 22:59 06:59 Intake Total 1900 / 1900 Output Total 825 / 825 Balance 1075 / 1075 Weight last 48 hrs Weight 99.79 kg Physical Exam Narrative: General: No acute distress, AO x3 HEENT: PERRLA, pupils bilaterally equal and reactive, pallors not present Chest: Rales to auscultation bilaterally CVS: S1-S2 regular, no murmurs, no tachycardia, no gallops, no rubs Abdomen: Soft, nontender, no organomegaly, bowel sounds present Neuro: No focal deficits, no facial deformity, AO x3, power 5/5 in all limbs Data 12/08/23 23:11 12/08/23 23:11 Other Labs: CT/CT head wo con* [id number] IMPRESSION: No acute intracranial abnormality. XR/XR chest 1V portable [id number] IMPRESSION: Improving infiltrates with basilar predominance since the previous study. No new acute finding. Micro: Microbiology 12/09/23 00:01 Blood Culture - Preliminary Blood SPECIMEN COLLECTED 12/08/23 23:58 Blood Culture - Preliminary Blood SPECIMEN COLLECTED A&P Assessment and plan (1) Atrial fibrillation with RVR: Patient appears to be new onset Initial rate upon presentation at 160, improved to 97-113 with amiodarone infusion BP improved after rate control Continue amiodarone infusion for now and monitor Hold metoprolol due to hypotension Not adding anticogaulation for now due to recent h/o gastric ulceration, acute anemia requiring blood transfusion recent Echo from 11/15 Normal left ventricular size and systolic function, EF 72 %. No regional wall motion abnormalities. Mild tricuspid valve regurgitation. (2) Diarrhea: check C diff PCR given recent h/o prolonged abx use Qualifiers: Diarrhea type: unspecified type Qualified Code(s): R19.7 - Diarrhea, unspecified (3) Syncope: May be related to arrhythmia, hypotension vs dehydration from diarrhea CT head without acute events Check orthostatics when able Qualifiers: Syncope type: unspecified Qualified Code(s): R55 - Syncope and collapse (4) CHF (congestive heart failure): Likely precipitated by A fib with RVR Lasix 20mg iv now check cr with am labs further dosed dependent on urine output and cr check (5) Wound of skin: Wound over RIGHT leg appears to be stable,healing satisfactorily , to be assessed for skin grafting NEW Left leg wound over anterior aspect just below knee, superficial, bleeds to touch. No signs of gross infection or cellulitis. Continue wound care per [facility] instructions No new areas of cellulitis (6) Gastric ulcer: Protonix 40mg Bid and sucralfate to continue Qualifiers: Gastric ulcer chronicity: unspecified ulcer chronicity Gastric ulcer complication status: without hemorrhage or perforation Qualified Code(s): K25.9 - Gastric ulcer, unspecified as acute or chronic, without hemorrhage or perforation Plan Possible UTi: + leukocyte esterase, inc WBC, though no rebekah dysuria. Check urine cx empiric ceftriaxone 1 g iv every 24 hrs. Check blood cx given PICC line Leukocytosis : 60191, has been persistently elevated over the past month, down from ~17221 at its peak one month ago. Favor margination over new infection. COPD: not currently exacerbated. Duoneb every 6 hrs + budesonide 0.5 mg BID DVT ppx: heparin 5000 s/c q12h Full code Attestations Medical Necessity Statement*: > 2 midnight admission is anticipated Coding Level of Care Code Acute Code for Chg Fwd High MDM includes number and complexity of problems actively addressed during encounter, amount and/or complexity of data reviewed/ordered and described risk of complication, morbidity or mortality of management as documented Diagnoses Atrial fibrillation with RVR I48.91 Diarrhea, unspecified type R19.7 Diarrhea type: unspecified type Syncope, unspecified syncope type R55 Syncope type: unspecified CHF (congestive heart failure) I50.9 Wound of skin T14.8XXA Gastric ulcer without hemorrhage or perforation, unspecified chronicity K25.9 Gastric ulcer chronicity: unspecified ulcer chronicity Gastric ulcer complication status: without hemorrhage or perforation
[2023-12-09 03:30] LABS: Procalcitonin 0.22 ng/mL (0-0.5)
[2023-12-09] MEDS: cefTRIAXone 1,000 MG in sodium chloride 0.9% (plus) 50 ML 100 MG IV (03:30)
[2023-12-09] MEDS: FUROsemide 10 mg/mL SDV 2mL 20 MG IVP (03:31)
[2023-12-09] MEDS: heparin 5,000 unit/mL INJ 1 mL 5000 UNIT SUBCUT (04:01)
[2023-12-09] MEDS: ipratropium-albuterol 3 mL Neb INHALATION (04:09)
--- NOTE | 2023-12-09 07:44 | PC.PHAR ---
Addendum entered by Annie Narvaez 12/09/23 12:07: MEDICATIONS ENTERED ARE FROM THE PTS MAR THAT WAS FAXED TO [facility] FROM [facility]-MAR HAD PT WAS ON 8 DAYS OF CEFAZOLIN 2G TID FROM 11/29/23-12/07/23 Original Note: [phone]rashard campbell from [facility] states will fax mar and tar
--- NOTE | 2023-12-09 08:15 | PM.PN ---
Subjective Subjective: Called by nurse this morning that the patient is having runs of Vtach w/ Afib w/ RVR. The nurse also mentioned the patient's troponin T level was >900. When I saw the patient, he was awake and alert and oriented x 3. He is adamant that he did not have an episode of syncope at the detention; rather, he states that the detention was trying to get rid of him because he was too needy. Vitals/I&O/Wt Last Vital Signs Temp 97.5 F L 12/08/23 22:59 Pulse 141 H 12/09/23 08:12 Resp 18 12/09/23 08:12 BP 100/57 12/09/23 06:33 Pulse Ox 96 12/09/23 08:12 O2 Del Method Nasal Cannula 12/09/23 08:12 O2 Flow Rate 4 12/09/23 08:12 12/08/23 12/09/23 12/09/23 22:59 06:59 14:59 Intake Total 2150 / 2150 Output Total 825 / 825 Balance 1325 / 1325 Weight last 48 hrs Weight 99.79 kg Physical Exam Const: GENERAL APPEARANCE: cooperative, comfortable and well kempt NUTRITIONAL APPEARANCE: obese ORIENTATION/CONSCIOUSNESS: Yes awake, Yes oriented to person, Yes oriented to place and Yes oriented to time HENMT: COMMON NORMALS: normocephalic, atraumatic and external ears normal HEAD & SCALP: normocephalic and atraumatic EXTERNAL EAR: Yes external ears normal MOUTH: Normal oral and palatal mucosa present THROAT: posterior oropharynx normal Eye: COMMON NORMALS: Equal, round and reactive pupils present PUPIL: Yes Equal, round and reactive pupils present EOM: No EOM abnormal Neck/C-Spine: COMMON NORMALS: Thyroid normal GENERAL: Yes normal visual inspection, Yes trachea midline and Yes anterior neck swelling THYROID: Thyroid normal CAROTIDS: No bruit CERVICAL SPINE: Yes cervical ROM normal Lymph: LYMPHATIC: No no lymphedema noted and lymphadenopathy Chest: CHEST: Yes abnormal inspection of the chest, Yes Symmetrical chest wall rise and Yes laceration Resp: OTHER: B/l expiratory wheezes w/ barely audible breath sounds in the b/l lower lung bases. Cardio: OTHER: irregular rate and rhythm. It is difficult to appreciate any murmurs, rubs, or gallops, given the noise in the room. GI: OTHER: BS+, nontender, nondistended, no guarding, no rigidity, no rebound tenderness, no organomegaly. Extremity: GENERAL: No clubbing, No cyanosis and No edema Neuro: SENSORIUM/ORIENTATION: Yes oriented to person, Yes oriented to place and Yes oriented to time Psych: COMMON NORMALS: speech normal APPEARANCE: Yes well kempt ATTITUDE: Yes calm and Yes engaged SPEECH: Yes normal speech MOOD & AFFECT: Yes euthymic mood Skin: COMMON NORMALS: no rashes or lesions noted GENERAL SKIN EXAM: no rashes or lesions noted Data 12/09/23 08:36 12/09/23 08:36 Micro: Microbiology 12/09/23 00:01 Blood Culture - Preliminary Blood SPECIMEN COLLECTED 12/08/23 23:58 Blood Culture - Preliminary Blood SPECIMEN COLLECTED A&P Assessment and plan (1) Sepsis: Qualifiers: Sepsis acute organ dysfunction status: unspecified Plan #Questionable Syncope #New onset Afib w/ RVR: - due to hypotension, he was given Amiodarone bolus in the ED and started on Amiodarone drip. - F/u Trop T, TSH - Consulted Cardiology #NSTEMI: unclear whether type I vs Type II. Started ACS protocol based on elevated Trop T. . - Consulted Cardiology. #NSVT #HTN #Acute on chronic HFpEF: TTE on 11/15 shows EF of 72% w/no wall motion abnormalities, and mild tricuspid regurg. - s/p Lasix 20mg IVP x 1. Strict Is & Os. #Sepsis: F/u BCx #Leukocytosis #Possible UTI: s/p Vanc/Zosyn in the ED. Ceftriaxone on admission - Continued. #Diarrhea: F/u C. diff. Less likelihood. #Hyponatremia: Improving. Monitor renal function. # Acute COPD exacerbation: On duonebs. Added Solumedrol and Azithromycin #Chronic hypoxic respiratory failure on 2-4L NC O2 w/ exertion and 2L NC O2 while at rest or at night. #Gastric ulcers: noted on 11/12/2023 EGD. Continue PPI BID & Sucralfate #R. lower extremity wound - due to R. LE Necrotizing fascitis due to MSSA, Grp A strep, & Enterobacter cloacae - completed IV Cefazolin on 12/03/2023 - Plan was o f/u w/ Gen surg this week to evaluate for skin grafting. - Consulted Surgeon Dr. Ortega for wound care recs. Will courtesy notify Dr. Cummings of his hospitalization. #Acute gout: Not an acute issue at this time. Attestations Medical Necessity Statement*: Patient needs hospitalization for arrhythmias, NSTEMI, Sepsis. Coding Level of Care Code Acute Code for g Fwd Diagnoses Sepsis A41.9 Sepsis acute organ dysfunction status: unspecified
--- NOTE | 2023-12-09 08:21 | ECG_ITS ---
[facility] Test Date: 2023-12-09 Pat Name: Peter Herrmann Department: Room: 104 Gender: Male [employer] [place]: : 1955 Requested By: Bernadette Metcalf Order Number: [id number] Lorri MD: Juvenal Lau M.D. Measurements Intervals [place] Rate: 136 P: 0 NH: 0 QRS: 16 QRSD: 109 T: 60 QT: 345 QTc: 520 Interpretive Statements ATRIAL FIBRILLATION WITH RAPID VENTRICULAR RESPONSE WITH ABERRANT CONDUCTION OR VENTRICULAR PREMATURE COMPLEXES NONSPECIFIC ST & T-WAVE ABNORMALITY ABNORMAL RHYTHM ECG Compared to ECG 12/08/2023 23:10:31 No significant changes Electronically Signed On 12-09-2023 9:48:00 ORGANIC CHEMISTRY PROFESSOR by Juvenal Lau M.D. [id number]
--- NOTE | 2023-12-09 08:24 | ECG_ITS ---
[facility] Test Date: 2023-12-09 Pat Name: Peter Herrmann Department: Room: 104 Gender: Male [employer]: : 1955 Requested By: Bernadette Metcalf Order Number: [id number] Lorri MD: Juvenal Lau M.D. Measurements Intervals [place] Rate: 119 P: 0 CA: 0 QRS: 20 QRSD: 102 T: 120 QT: 345 QTc: 486 Interpretive Statements ATRIAL FIBRILLATION WITH RAPID VENTRICULAR RESPONSE WITH ABERRANT CONDUCTION OR VENTRICULAR PREMATURE COMPLEXES NONSPECIFIC ST & T-WAVE ABNORMALITY Compared to ECG 12/09/2023 08:21:09 No significant changes Electronically Signed On 12-09-2023 9:47:48 QUILLER TENDER by Juvenal Lau M.D. [id number]
[2023-12-09 09:10] LABS: Basophils % 0.1 %; Eosinophils % 0.2 %; Hematocrit 27.2 % (37-53); Lymphocytes # 0.8 10^3/uL (0.8-4.8); Lymphocytes % 3.3 %; Mean Corpuscular HGB Conc 30.1 g/dL (30-55); Mean Corpuscular Hemoglobin 28.7 pg (27-33); Mean Corpuscular Volume 95.1 fl (82-101); Mean Platelet Volume 11.8 fL (7.4-10.4); Monocytes # 1.2 10^3/uL (0.2-0.9); Monocytes % 4.8 %; Neutrophils # 21.78 10^3/uL (1.8-7.7); Neutrophils % 90.9 %; Nucleated Red Blood Cells % 0 %; Platelet Count 310 10^3/cmm (157-399); Red Blood Count 2.86 10^6/uL (3.85-5.65); Red Cell Distribution Width 17.6 % (12.1-15.1); White Blood Count 23.95 10^3/uL (3.29-11.43)
[2023-12-09 09:44] LABS: Troponin(5th) Baseline 984 ng/L (0-15)
[2023-12-09 09:54] LABS: Alanine Aminotransferase < 5 U/L (0-41); Albumin Level 2.7 g/dL (3.5-5.2); Alkaline Phosphatase 93 U/L (40-130); Anion Gap 11.3 (5-19); Aspartate Amino Transferase 13 U/L (0-40); Blood Urea Nitrogen 37 mg/dL (8-23); Calcium 7.6 mg/dL (8.5-10.5); Carbon Dioxide 36 mmol/L (22-29); Chloride 92 mmol/L (98-107); Creatinine Clr Calc Pharmacy 67.2344; Free T4 Free Thyroxine 1.11 ng/dL (0.82-1.77); Globulin 2.7 g/dL (1.3-4.6); Glomerular Filtration Rate 60.4 mL/min (90-130); Glucose 127 mg/dL (65-115); Osmolality Calculated 292 mOsm/kg (285-295); Phosphorus 2.4 mg/dL (2.5-4.5); Potassium 3.3 mmol/L (3.5-5.1); Sodium 136 mmol/L (136-145); Thyroid Stimulating Hormone 2.64 uIU/mL (0.27-4.20); Total Bilirubin 0.2 mg/dL (0.15-1.2); Total Protein 5.4 g/dL (6.6-8.7)
[2023-12-09 11:20] LABS: Glucose Point of Care 105 mg/dL (70-110)
--- NOTE | 2023-12-09 12:24 | USCV_ITS ---
Peter Herrmann Age: 68 Gender: M : 1955 Exam Date: 12/09/2023 12:50 Ordering Phys: Len Merida MD ([email or web address]) Technologist: MARISA Exam Location[place] [facility] [place]ication: vent tach BP: 103 / 68 HR: 0 Rhythm: Sinus Technical Quality: Adequate MEASUREMENTS (Male / Female) Normal Values FINDINGS Left Ventricle The left ventricle appears to be of normal size. There was moderate diffuse hypokinesia of the septum and inferior wall segments. LV ejection fraction is around 40 to 45%. The patient was found to be atrial fibrillation with rapid ventricular rate to do the study Right Ventricle Appears to be normal size with normal ejection fraction Right Atrium Appears mildly dilated Left Atrium Appears to be mildly dilated Mitral Valve No gross abnormalities noted Aortic Valve No gross abnormalities noted Tricuspid Valve No gross abnormalities noted Pulmonic Valve Pulmonic valve not well visualized. Pericardium No pericardial effusion. Aorta Appears to be of normal size. IVC Inferior vena cava not visualized. CONCLUSIONS Normal LV size with diminished ejection fraction of 40 to 45%. Wall motion abnormalities as mentioned above. Possibly normal RV size and ejection fraction Mild biatrial enlargement No pericardial effusion Because of the arrhythmia during the study, ejection fraction estimation and segmental wall motion analysis could be misleading. Dr Len Merida MD FACC (Electronically Signed) Final Date: 11 December 2023 16:46 S
[2023-12-09] MEDS: enoxaparin 100 mg/mL Syringe SUBCUT ×2 (12:49→22:47)
[2023-12-09] MEDS: methylPREDNISolone sod succ 125 mg/2 mL INJ 80 MG IVP (12:49)
[2023-12-09] MEDS: metoprolol tartrate 1 mg/1 mL SDV 5 mL 5 MG IVP (12:50)
[2023-12-09] MEDS: morphine 4 mg/mL SDV 1 mL 2 MG IVP (12:50)
--- NOTE | 2023-12-09 12:50 | PM.CONSULT ---
Providers/Reason For Consult Consulting Physician/Specialty*: Dr. Ortega/wound care services Reason for Consult*: Right lower extremity wound status post surgical debridement Requesting Physician: Ayaka Cox MD Attending Physician: Ayaka Cox MD Primary Care Provider: Jason Harper DO History of Present Illness History of Present Illness Peter Herrmann is a 68 year old male whom I consulted for evaluation of right lower extremity wound status post surgical debridement by Dr. Cummings on November 11 for right lower extremity cellulitis with abscess formation on the anterior lateral aspect. He is also status post left ankle arthroscopy with irrigation debridement for septic joint on November 21. He was subsidy discharged that hospitalization on November 28. We saw him in consultation at [facility] wound care services on December 03 for his large right lower extremity wound. At that time, some devitalized fascia was debrided sharply with Metzenbaum scissors and forceps as well as removal modest biofilm and exudate from the muscle bed and fascia itself. We recommended wet-to-dry dressing changes at that time with scheduled follow-up. Initial assessment of wound was that after appropriate primary treatment, consideration should be made for split-thickness skin graft. At the time of his visit with us in the wound care clinic, he had a PICC line in place and was receiving cefazolin under the direction of Dr. Metcalf from our infectious disease service. He was readmitted today with a history of syncope as reported by the nursing facility he was a resident at, though Mr. Herrmann himself denies loss of consciousness. He was noted to be in atrial fibrillation with RVR as well as CHF possibly precipitated by A-fib with RVR and diarrhea. He is also noted to have leukocyte esterase in her urine sample. He was initiated on Rocephin 1 g every 24 hours. Review of Systems Const: Denies: fever(s) Eyes: Denies: change in vision ENMT: Reports: hoarseness; Denies: throat pain Card: Reports: palpitations and irregular heart rhythm; Denies: chest pain Resp: Denies: dyspnea or productive cough GI: Denies: abdominal pain or nausea Musc: Reports: back pain, extremity pain and extremity swelling Neuro: Reports: frequent falls; Denies: headache(s) or numbness in extremities Medications/Allergies Home Medications Medication Instructions Recorded Confirmed Last Taken Type albuterol sulfate 90 mcg/actuation 2 puff inhalation Q6H PRN 02/01/21 12/09/23 02/11/21 History aerosol inhaler (ProAir HFA) Shortness Of Breath fluticasone propionate 50 1 spray intranasal DAILY@07 06/06/23 12/09/23 06/06/23 History mcg/actuation nasal spray,suspension budesonide 160 mcg-glycopyr 9 2 inh inhalation BID #10.7 grams 11/13/23 12/09/23 Unknown Rx mcg-formot 4.8 mcg/actuation HFA inhaler (Breztri Aerosphere) lidocaine 5 % topical patch 1 patch topical [id number] #14 ea 11/27/23 12/09/23 Unknown Rx metoclopramide HCl 5 mg tablet 5 mg PO DAILY #30 tabs 11/27/23 12/09/23 Unknown Rx (Reglan) metoprolol tartrate 50 mg tablet 50 mg PO BID #90 tabs 11/27/23 12/09/23 Unknown Rx nystatin 100,000 unit/mL oral 100,000 unit PO QID 30 days #120 mL 11/27/23 12/09/23 Unknown Rx suspension prednisone 10 mg tablet See Taper PO DIRECTED #42 tabs 11/27/23 12/09/23 Unknown Rx sucralfate 1 gram tablet 1 g PO AC&BEDTIME 30 days #120 tabs 11/27/23 12/09/23 Unknown Rx trazodone 50 mg tablet 25 mg (1/2 x 50 mg) PO BEDTIME #30 11/27/23 12/09/23 Unknown Rx tabs aluminum-mag hydroxide-simethicone 10 ml PO Q4H PRN Indigestion 12/09/23 12/09/23 Unknown History 400 mg-400 mg-40 mg/5 mL oral susp amino acids-protein hydrolysate 15 See Rx Instructions .Route .COMPLEX 12/09/23 12/09/23 Unknown History gram-101 kcal/30 mL oral liquid bisacodyl 10 mg rectal suppository 10 mg ID DAILY PRN Constipation 12/09/23 12/09/23 Unknown History (Dulcolax (bisacodyl)) calcium carbonate 500 mg calcium 1,000 mg PO Q4H PRN UNKNOWN 12/09/23 12/09/23 Unknown History (1,250 mg) chewable tablet (Calcium 500) furosemide 40 mg tablet (Lasix) 40 mg PO .STAT ONE TIME DOSE 12/09/23 12/09/23 Unknown History furosemide 40 mg tablet (Lasix) 40 mg PO BID 12/09/23 12/09/23 Unknown History magnesium hydroxide 400 mg/5 mL 30 ml PO DAILY PRN Constipation 12/09/23 12/09/23 Unknown History oral suspension (Milk of Magnesia) omeprazole 40 mg capsule,delayed 40 mg PO BID@08,18 12/09/23 12/09/23 Unknown History release oxycodone 5 mg tablet 5 mg PO Q6H PRN Pain, Moderate 12/09/23 12/09/23 Unknown History sodium phosphates 19 gram-7 118 ml ID DAILY PRN Constipation 12/09/23 12/09/23 Unknown History gram/118 mL enema (Fleet Enema) tramadol 50 mg tablet 50 mg PO Q6H PRN Pain 12/09/23 12/09/23 Unknown History Allergies Allergy/AdvReac Type Severity Reaction Status Date / Time acetaminophen [From Tylenol] Allergy Unknown Verified 12/08/23 23:07 Opioids - Morphine Analogues Allergy ADR-Halluci Verified 12/08/23 23:07 nating Current Medications Generic Name Dose Route Start Last Admin Trade Name Freq PRN Reason Stop Dose Admin Budesonide 0.5 mg 12/09/23 08:00 12/09/23 08:13 Budesonide 0.5 Mg/2 Ml Neb INHALATION Not Given BID.RESPIRATORY FREYA Amiodarone HCl/Dextrose 360 mg in 200 mls @ 0 mls/hr 12/08/23 23:12 12/09/23 05:36 Nexterone IV 0.5 mg/min .Q0M FREYA 16.67 mls/hr Administration Protocol Per Protocol Lidocaine 1 patch 12/09/23 09:00 12/09/23 10:50 Lidocaine 5% Patch TOPICAL Not Given [id number] FREYA Nystatin 100,000 unit 12/09/23 09:00 12/09/23 10:50 Nystatin 100,000 Unit/Ml Udc 5 Ml PO Not Given QID FREYA Sucralfate 1 gm 12/09/23 07:00 12/09/23 12:07 Sucralfate 1 Gm Tablet PO Not Given AC&BEDTIME FREYA PFSH Acute PFSH: Medical History Smoker Esophageal dysmotility Legionella pneumonia CHF (congestive heart failure), NYHA class III LBBB (left bundle branch block) COPD (chronic obstructive pulmonary disease) HTN (hypertension) Surgical History No history of previous surgery Family History Other Hypertension Denies family history of Diabetes CAD (coronary artery disease) Clotting disorder Dementia Chronic kidney disease (CKD) Suicide Anesthesia complication Bleeding disorder Lung disease Cancer Stroke Social History Smoking and tobacco/nicotine status: former use of tobacco/nicotine Quit status (tobacco/nicotine): has quit using Alcohol intake: former Substance/Drug Use: current Other substance/drug use details: No inhalation. Housing: House Vitals/I&O/Wt Last Vital Signs Temp 98.3 F 12/09/23 08:00 Pulse 141 H 12/09/23 08:12 Resp 18 12/09/23 08:12 BP 110/84 12/09/23 08:00 Pulse Ox 96 12/09/23 08:12 O2 Del Method Nasal Cannula 12/09/23 08:12 O2 Flow Rate 4 12/09/23 08:12 12/08/23 12/09/23 12/09/23 22:59 06:59 14:59 Intake Total 2150 / 2150 Output Total 825 / 825 Balance 1325 / 1325 Weight last 48 hrs Weight 220 lb Physical Exam Cardio: OTHER: Bedside monitor is demonstrating numerous PVCs including runs up to 8 beats. Amiodarone infusion is currently in place. He has remarkably asymptomatic with this arrhythmia which is quite frequent. Extremity: NARRATIVE EXTREMITY EXAM: Right lower extremity anterior lateral wound was carefully inspected. It is very clean down to fascia and exposed muscle. No sharp debridement is required at this time. Wet-to-dry dressing was reapplied. I would recommend twice daily wet-to-dry dressings utilizing saline and 4 x 4 gauze along with Kerlix. Data 12/09/23 08:36 12/09/23 08:36 Micro: Microbiology 12/09/23 00:01 Blood Culture - Preliminary Blood SPECIMEN COLLECTED 12/08/23 23:58 Blood Culture - Preliminary Blood SPECIMEN COLLECTED A&P Assessment and plan (1) Status post excisional debridement: Status post surgical debridement of cellulitis and right lower extremity wound abscess by Dr. Cummings on November 14, 2023. Current right lower extremity wound remains very clean with exposed fascia and musculature. I recommend continuing twice daily wet-to-dry dressing changes with saline, 4 x 4 gauze, and Kerlix. I believe that once his medical condition has been stabilized, he may be electively scheduled for consideration of a split-thickness skin graft over this wound. There is no pressing matter to address this at the present time given his other comorbidities. He may follow-up in [facility] wound care clinic after discharge and as well a follow-up with general surgery for consideration of STSG. Consult Attestations Medical Necessity Statement: Status post surgical debridement of cellulitis and abscess of right lower extremity. Coding Level of Care Code Acute Code for Chg Fwd Diagnoses Status post excisional debridement Z98.890
[2023-12-09] MEDS: aspirin 325 mg Tablet PO (12:51)
--- NOTE | 2023-12-09 13:06 | PC.NURSE ---
Wound Care Orders Called to wound clinic and spoke with CATHY Cantu, and confirmed wound care orders. She stated that Dr. Ortega is going to round around 1600 for dressing change and requested that wound care supplies be readily available as well as a suture removal kit. Called and spoke with CATHY Jimenez and updated him of orders and to have supplies ready.
[2023-12-09 14:52] LABS: Troponin 5 6HR 1025 ng/L (0-15); Troponin 5 6HR Delta 41 ng/L (0-12)
[2023-12-09] MEDS: nystatin 100,000 unit/mL UDC 5 mL 100000 UNIT PO ×3 (17:22→21:26)
[2023-12-09] MEDS: potassium chloride ER 20 mEq Tablet PO (17:22)
[2023-12-09] MEDS: pantoprazole 40 mg SDV IVP ×2 (17:23→17:25)
[2023-12-09] MEDS: sucralfate 1 gm Tablet PO ×2 (17:30→21:26)
--- NOTE | 2023-12-09 20:12 | PM.CONSULT ---
Providers/Reason For Consult Consulting Physician/Specialty*: ELIZ Merida MD/cardiology Reason for Consult*: Patient with atrial fibrillation rapid ventricular rate. Was started on IV Cardizem and had to be discontinued because of hypotension. Started on IV amiodarone. The rate is still uncontrolled. Also found to have frequent ventricular arrhythmias on the monitor Requesting Physician: Dr. Ayaka Marshall Attending Physician: Ayaka Cox MD Primary Care Provider: Jason Harper DO History of Present Illness History of Present Illness Peter Herrmann is a 68 year old male, is admitted to the hospital through the emergency room, where he presented with a an episode of syncope. He was found to be in atrial fibrillation with rapid ventricular rate. He was started on IV Cardizem. Because of the hypotension, this had to be discontinued. He is currently on IV amiodarone. The heart rate still remains uncontrolled. Cardiology consult is requested for further cardiac evaluation recommendations. According to the patient, he did not have any syncopal episode in the senior living. He was wanting to sit up but the nurses did not allow him. So he was brought to the emergency room!. Based on the ER physician's note, the patient apparently was trying to get out of bed. He was somewhat confused. He had this near syncopal episode, while he was trying to get up. In the emergency room, he was found to be tachycardic with a heart rate in the 160s. He was in atrial fibrillation with rapid ventricular rate. With IV Cardizem, the blood pressure dropped to the 60s. So for this reason, the medicine was discontinued. Blood pressure started coming up. Currently he is on IV amiodarone. This patient was recently admitted to hospital with features of a severe sepsis/necrotizing fasciitis of the right lower extremity. He had a wound debridement. He was treated with antibiotics and was sent to the senior living with a PICC line for continuous IV antibiotic. During his hospital admission, he was found to be developing congestive heart failure and kidney injury. He also was found to be severely anemic. He had to be transfused with 4 units of packed RBCs. Endoscopic studies were done during the hospital stay. He was found to have nonbleeding gastric ulcers. So he was started on medical treatment. Patient was sent to the senior living for recuperation. Patient had episodes of confusion in the senior living. But no chest pain or fever. No chills or cough. Currently he seems to be alert and oriented x 3. Denies any other specific complaints. Review of Systems Narrative: CONSTITUTIONAL: No fever or chills. EYES: No blurring of vision or other visual disturbances lately. ENT: No hoarseness of voice, auditory disturbances or sore throat. CARDIOVASCULAR: As mentioned above. RESPIRATORY: No significant cough. GASTROINTESTINAL: No hematemesis or melena. GENITOURINARY: No dysuria or hematuria. INTEGUMENTARY: Debrided wound on the lower anterolateral aspect of the right leg NEURO: Episodes of confusion? PSYCHIATRIC: No history of psychosis or major depression. HEMATOLOGIC: No bleeding disorders or significant anemia. ENDOCRINE: No history of polyuria or polydipsia. MUSCULOSKELETAL: No recent joint pain or swelling. ALLERGY/IMMUNOLOGY: As mentioned above. Medications/Allergies Home Medications Medication Instructions Recorded Confirmed Last Taken Type albuterol sulfate 90 mcg/actuation 2 puff inhalation Q6H PRN 02/01/21 12/09/23 02/11/21 History aerosol inhaler (ProAir HFA) Shortness Of Breath fluticasone propionate 50 1 spray intranasal DAILY@07 06/06/23 12/09/23 06/06/23 History mcg/actuation nasal spray,suspension budesonide 160 mcg-glycopyr 9 2 inh inhalation BID #10.7 grams 11/13/23 12/09/23 Unknown Rx mcg-formot 4.8 mcg/actuation HFA inhaler (Breztri Aerosphere) lidocaine 5 % topical patch 1 patch topical [id number] #14 ea 11/27/23 12/09/23 Unknown Rx metoclopramide HCl 5 mg tablet 5 mg PO DAILY #30 tabs 11/27/23 12/09/23 Unknown Rx (Reglan) metoprolol tartrate 50 mg tablet 50 mg PO BID #90 tabs 11/27/23 12/09/23 Unknown Rx nystatin 100,000 unit/mL oral 100,000 unit PO QID 30 days #120 mL 11/27/23 12/09/23 Unknown Rx suspension prednisone 10 mg tablet See Taper PO DIRECTED #42 tabs 11/27/23 12/09/23 Unknown Rx sucralfate 1 gram tablet 1 g PO AC&BEDTIME 30 days #120 tabs 11/27/23 12/09/23 Unknown Rx trazodone 50 mg tablet 25 mg (1/2 x 50 mg) PO BEDTIME #30 11/27/23 12/09/23 Unknown Rx tabs aluminum-mag hydroxide-simethicone 10 ml PO Q4H PRN Indigestion 12/09/23 12/09/23 Unknown History 400 mg-400 mg-40 mg/5 mL oral susp amino acids-protein hydrolysate 15 See Rx Instructions .Route .COMPLEX 12/09/23 12/09/23 Unknown History gram-101 kcal/30 mL oral liquid bisacodyl 10 mg rectal suppository 10 mg MN DAILY PRN Constipation 12/09/23 12/09/23 Unknown History (Dulcolax (bisacodyl)) calcium carbonate 500 mg calcium 1,000 mg PO Q4H PRN UNKNOWN 12/09/23 12/09/23 Unknown History (1,250 mg) chewable tablet (Calcium 500) furosemide 40 mg tablet (Lasix) 40 mg PO .STAT ONE TIME DOSE 12/09/23 12/09/23 Unknown History furosemide 40 mg tablet (Lasix) 40 mg PO BID 12/09/23 12/09/23 Unknown History magnesium hydroxide 400 mg/5 mL 30 ml PO DAILY PRN Constipation 12/09/23 12/09/23 Unknown History oral suspension (Milk of Magnesia) omeprazole 40 mg capsule,delayed 40 mg PO BID@08,18 12/09/23 12/09/23 Unknown History release oxycodone 5 mg tablet 5 mg PO Q6H PRN Pain, Moderate 12/09/23 12/09/23 Unknown History sodium phosphates 19 gram-7 118 ml MN DAILY PRN Constipation 12/09/23 12/09/23 Unknown History gram/118 mL enema (Fleet Enema) tramadol 50 mg tablet 50 mg PO Q6H PRN Pain 12/09/23 12/09/23 Unknown History Allergies Allergy/AdvReac Type Severity Reaction Status Date / Time acetaminophen [From Tylenol] Allergy Unknown Verified 12/08/23 23:07 Opioids - Morphine Analogues Allergy ADR-Halluci Verified 12/08/23 23:07 nating Current Medications Generic Name Dose Route Start Last Admin Trade Name Freq PRN Reason Stop Dose Admin Albuterol/Ipratropium 3 ml 12/09/23 14:00 12/09/23 14:30 Ipratropium-Albuterol 3 Ml Neb INHALATION Not Given Q6H.RESP FREYA Budesonide 0.5 mg 12/09/23 08:00 12/09/23 08:13 Budesonide 0.5 Mg/2 Ml Neb INHALATION Not Given BID.RESPIRATORY FREYA Enoxaparin Sodium 100 mg 12/09/23 11:30 12/09/23 12:49 Enoxaparin 100 Mg/Ml Syringe 1 mg/kg (100 mg) 100 mg SUBCUT Administration Q12H FREYA Amiodarone HCl/Dextrose 360 mg in 200 mls @ 0 mls/hr 12/08/23 23:12 12/09/23 17:31 Nexterone IV 0.5 mg/min .Q0M FREYA 16.67 mls/hr Administration Protocol Per Protocol Lidocaine 1 patch 12/09/23 09:00 12/09/23 10:50 Lidocaine 5% Patch TOPICAL Not Given [id number] FREYA Methylprednisolone Sodium Succinate 80 mg 12/09/23 11:45 12/09/23 12:49 Methylprednisolone Sod Succ 125 Mg/2 Ml Inj IVP 80 mg ONCE FREYA Administration Morphine Sulfate 2 mg 12/09/23 02:54 12/09/23 12:50 Morphine 4 Mg/Ml Sdv 1 Ml IVP 2 mg Q4H PRN Administration SEVERE PAIN Nystatin 100,000 unit 12/09/23 09:00 12/09/23 17:26 Nystatin 100,000 Unit/Ml Udc 5 Ml PO 100,000 unit QID FREYA Administration Pantoprazole Sodium 40 mg 12/09/23 17:00 12/09/23 17:25 Pantoprazole 40 Mg Sdv IVP 40 mg Q12H FREYA Administration Sucralfate 1 gm 12/09/23 07:00 12/09/23 17:30 Sucralfate 1 Gm Tablet PO 1 gm AC&BEDTIME FREYA Administration PFSH Acute PFSH: Medical History Smoker Esophageal dysmotility Legionella pneumonia CHF (congestive heart failure), NYHA class III LBBB (left bundle branch block) COPD (chronic obstructive pulmonary disease) HTN (hypertension) Surgical History No history of previous surgery Family History Other Hypertension Denies family history of Diabetes CAD (coronary artery disease) Clotting disorder Dementia Chronic kidney disease (CKD) Suicide Anesthesia complication Bleeding disorder Lung disease Cancer Stroke Social History Smoking and tobacco/nicotine status: former use of tobacco/nicotine Quit status (tobacco/nicotine): has quit using Alcohol intake: former Substance/Drug Use: current Other substance/drug use details: No inhalation. Housing: House Vitals/I&O/Wt Last Vital Signs Temp 98.3 F 12/09/23 08:00 Pulse 157 H 12/09/23 16:20 Resp 16 12/09/23 16:20 BP 103/68 12/09/23 16:20 Pulse Ox 100 12/09/23 16:20 O2 Del Method Nasal Cannula 12/09/23 14:29 O2 Flow Rate 3 12/09/23 14:29 12/09/23 12/09/23 12/09/23 06:59 14:59 22:59 Intake Total 2150 / 2150 398.651 / 398.651 Output Total 825 / 825 Balance 1325 / 1325 398.651 / 398.651 Weight last 48 hrs Weight 221 lb 6.4 oz Weight 220 lb Physical Exam Narrative: GENERAL: The patient is alert and oriented times three. Not in any acute distress. HEENT: No significant pallor, icterus or lymphadenopathy.Oral cavity: There are no mucous membrane lesions. NECK: Trachea appears to be central. No masses noted. No JVD or thyromegaly appreciated. RESPIRATORY: Chest is symmetrical. No intercostals muscle retraction or any accessory muscle activation. There is no chest wall tenderness. Breath sounds are heard bilaterally. No rales or rhonchi heard. No evidence of any consolidation. BREASTS: Deferred. HEART: The heart sounds are normal. No S3 or S4. Short systolic murmur in the lower sternal border .No pericardial rub ABDOMEN: No vessel pulsations or distention. No tenderness. No organomegaly appreciated. Bowel sounds are normally heard. : Deferred. RECTAL: Deferred. LYMPHATIC: No lymphadenopathy noted in the neck. EXTREMITIES: Open debrided wound on the lower anterolateral aspect of the right leg. Some healing ulcers on the left leg. 1-2+ edema of both lower extremities. MUSCULOSKELETAL: No acute joint deformities or swelling SKIN: Some features of chronic venous stasis. No cyanosis. NEUROPSYCHIATRIC: The patient is alert and oriented x3. Appears to be in a good mood. No tremors or rigidity noted. Data 12/10/23 03:52 12/10/23 03:52 Other Labs: Laboratory Last Values WBC 19.57 10^3/uL (3.29-11.43) H 12/10/23 03:52 RBC 2.72 10^6/uL (3.85-5.65) L 12/10/23 03:52 Hgb 7.80 g/dL (11.27-16.99) L 12/10/23 03:52 Hct 25.8 % (37-53) L 12/10/23 03:52 MCV 94.9 fl (82-101) 12/10/23 03:52 MCH 28.7 pg (27-33) 12/10/23 03:52 MCHC 30.2 g/dL (30-55) 12/10/23 03:52 RDW 18.1 % (12.1-15.1) H 12/10/23 03:52 Plt Count 250 10^3/cmm (157-399) 12/10/23 03:52 MPV 11.8 fL (7.4-10.4) H 12/10/23 03:52 Neut % (Auto) 96.0 % 12/10/23 03:52 Lymph % (Auto) 2.2 % 12/10/23 03:52 [place] % (Auto) 0.8 % 12/10/23 03:52 Eos % (Auto) 0.0 % 12/10/23 03:52 Baso % (Auto) 0.1 % 12/10/23 03:52 Neut # (Auto) 18.80 10^3/uL (1.8-7.7) H 12/10/23 03:52 Lymph # (Auto) 0.4 10^3/uL (0.8-4.8) L 12/10/23 03:52 [place] # (Auto) 0.2 10^3/uL (0.2-0.9) 12/10/23 03:52 Eos # (Auto) 0.0 10^3/uL (0.0-0.8) 12/10/23 03:52 Baso # (Auto) 0.0 10^3/uL (0.0-0.1) 12/10/23 03:52 Nucleated RBC % (auto) 0 % 12/10/23 03:52 Nucleated RBCs # 0.0 /100WBC 12/10/23 03:52 ESR 16 mm/hr (0-10) H 12/08/23 23:11 PT 16.90 SECONDS (12.1-14.9) H 12/08/23 23:11 INR 1.33 (0.8-1.2) H 12/08/23 23:11 Sodium 132 mmol/L (136-145) L 12/10/23 03:52 Potassium 3.9 mmol/L (3.5-5.1) 12/10/23 03:52 Chloride 89 mmol/L (98-107) L 12/10/23 03:52 Carbon Dioxide 36 mmol/L (22-29) H 12/10/23 03:52 Anion Gap 10.9 (5-19) 12/10/23 03:52 BUN 35 mg/dL (8-23) H 12/10/23 03:52 Creatinine 1.2 mg/dL (0.7-1.2) 12/10/23 03:52 GFR Calculation 60.4 mL/min (90-130) L 12/10/23 03:52 Glucose 178 mg/dL (65-115) H 12/10/23 03:52 POC Glucose 105 mg/dL (70-110) 12/09/23 11:10 Calculated Osmolality 286 mOsm/kg (285-295) 12/10/23 03:52 Lactic Acid 1.3 mmol/L (0.5-2.2) 12/08/23 23:11 Calcium 7.9 mg/dL (8.5-10.5) L 12/10/23 03:52 Phosphorus 2.4 mg/dL (2.5-4.5) L 12/09/23 08:36 Magnesium 2.8 mg/dL (1.7-2.3) H 12/08/23 23:11 Total Bilirubin 0.2 mg/dL (0.15-1.2) 12/10/23 03:52 AST 9 U/L (0-40) 12/10/23 03:52 ALT < 5 U/L (0-41) 12/10/23 03:52 Alkaline Phosphatase 96 U/L (40-130) 12/10/23 03:52 Troponin T Baseline 984 ng/L (0-15) H* 12/09/23 08:36 Troponin T 120 Minute 986.0 ng/L (0-15) H 12/09/23 10:44 Delta Troponin T 2.0 ABS# (0-10) 12/09/23 10:44 Troponin T Hi Sens 6Hr 1025 ng/L (0-15) H 12/09/23 14:24 Troponin T Hi Sens 6Hr Delta 41 ng/L (0-12) H* 12/09/23 14:24 C-Reactive Protein 29.9 mg/L (0.0-4.9) H 12/08/23 23:11 NT-Pro-B Natriuret Pep 6193 pg/mL (0-125) H 12/08/23 23:11 Total Protein 5.4 g/dL (6.6-8.7) L 12/10/23 03:52 Albumin 2.8 g/dL (3.5-5.2) L 12/10/23 03:52 Globulin 2.6 g/dL (1.3-4.6) 12/10/23 03:52 Procalcitonin 0.22 ng/mL (0-0.5) 12/08/23 23:11 TSH 2.64 uIU/mL (0.27-4.20) 12/09/23 08:36 Free T4 1.11 ng/dL (0.82-1.77) 12/09/23 08:36 Urine Color Yellow (Yellow) 12/08/23 23:17 Urine Appearance Cloudy (CLEAR) A 12/08/23 23:17 Urine pH 6.5 (5-7) 12/08/23 23:17 Ur Specific [place] 1.005 (1.005-1.030) 12/08/23 23:17 Urine Protein Trace (Negative) 12/08/23 23:17 Urine Glucose (UA) Trace (Normal) H 12/08/23 23:17 Urine Ketones Negative (Negative) 12/08/23 23:17 Urine Blood 3+ (Negative) H 12/08/23 23:17 Urine Nitrate Negative (Negative) 12/08/23 23:17 Urine Bilirubin Neg (Negative) 12/08/23 23:17 Urine Urobilinogen Neg mg/dL (Negative) 12/08/23 23:17 Ur Leukocyte Esterase 2+ (Negative) H 12/08/23 23:17 Urine RBC 15-25 /hpf (0-2) H 12/08/23 23:17 Urine WBC 25-40 /hpf (0-5) H 12/08/23 23:17 Ur Squamous Epith Cells None /hpf (0-5) 12/08/23 23:17 Amorphous Sediment Not Reportable 12/08/23 23:17 Urine Bacteria 3+ /hpf (NONE) H 12/08/23 23:17 Urine Mucus 2+ /hpf 12/08/23 23:17 Micro: Microbiology 12/09/23 00:01 Blood Culture - Preliminary Blood 12/09/23 12:50 Blood Culture - Preliminary Blood SPECIMEN COLLECTED 12/08/23 23:58 Blood Culture - Preliminary Blood SPECIMEN COLLECTED Other data: Echocardiogram on 11/15/2023 revealed Normal left ventricular size and systolic function, EF 72 %. No regional wall motion abnormalities. Mild tricuspid valve regurgitation. There is no pericardial effusion. EKG on 12/09/2023 revealed Atrial fibrillation with rapid ventricular rate of [address]-T changes. A 6 beat run of nonsustained ventricular tachycardia. A&P Assessment and plan (1) Atrial fibrillation with RVR: Currently the heart rate seems to be getting under control. Patient may continue with IV amiodarone. He also has frequent episodes of nonsustained regular tachycardia. I may start him on a low-dose of metoprolol, 12.5 mg p.o. twice daily. (2) Elevated troponin: Significant elevation of troponin T, may suggest a type I myocardial infarction. Patient was started on subcu Lovenox. Because of anemia, patient need to be carefully monitored for any active GI bleed (3) CHF (congestive heart failure), NYHA class III: This patient has a history of heart failure for more than 6 years. In 2018, he had a cardiac catheterization while he was in [place]. He was told to have no blockages at that point. I may go ahead and do a limited 2D echocardiogram to reevaluate LV function. We also may consider doing a Myocardial perfusion imaging to evaluate for any underlying coronary ischemia. Qualifiers: Congestive heart failure chronicity: chronic Congestive heart failure type: systolic Qualified Code(s): I50.22 - Chronic systolic (congestive) heart failure (4) NSVT (nonsustained ventricular tachycardia): Continue the IV amiodarone and a low-dose of beta-garrick. The heart rhythm need to be closely monitored on telemetry. (5) Gastric ulcer: Continue the current management. Qualifiers: Gastric ulcer chronicity: unspecified ulcer chronicity Gastric ulcer complication status: without hemorrhage or perforation Qualified Code(s): K25.9 - Gastric ulcer, unspecified as acute or chronic, without hemorrhage or perforation (6) HTN (hypertension): Patient was hypotensive in the beginning. Currently the blood pressure seems to be coming up. This needs to be closely monitored. Qualifiers: Hypertension type: essential hypertension Qualified Code(s): I10 - Essential (primary) hypertension (7) ALTA (acute kidney injury): The electrolytes and the renal function needs to be closely monitored. (8) Anemia associated with acute blood loss: Patient does not seem to have any active blood bleeding at this point. May need to monitor for any recurrence of GI bleed. Plan Other problems are Leukocytosis-possibly from the cellulitis-healing Hyponatremia Based on the clinical progress, further recommendations will be made. Thank for the opportunity to evaluate this patient and make these recommendations. Consult Attestations Medical Necessity Statement: Patient requires continued hospital stay for close monitoring and further management Coding Level of Care Code 90593 Diagnoses Atrial fibrillation with RVR I48.91 Elevated troponin R79.89 Chronic systolic congestive heart failure, NYHA class 3 I50.22 Congestive heart failure chronicity: chronic Congestive heart failure type: systolic NSVT (nonsustained ventricular tachycardia) I47.29 Gastric ulcer without hemorrhage or perforation, unspecified chronicity K25.9 Gastric ulcer chronicity: unspecified ulcer chronicity Gastric ulcer complication status: without hemorrhage or perforation Essential hypertension I10 Hypertension type: essential hypertension ALTA (acute kidney injury) N17.9 Anemia associated with acute blood loss D62
[2023-12-09] MEDS: trazodone 50 mg Tablet 25 MG PO (21:26)
[2023-12-09] MEDS: ipratropium 0.5 mg/2.5 mL Neb INHALATION (22:11)
[2023-12-09] MEDS: budesonide 0.5 mg/2 mL Neb INHALATION (22:11)
[2023-12-09] MEDS: levalbuterol 0.63 mg/3 mL Neb 0.630000000000000004 MG INHALATION (22:11)
[2023-12-09] MEDS: vancomycin 1,500 MG/300 ML PIGGYBACK 200 MG IV (22:46)
[2023-12-10] VITALS (203 sets, daily range): BP systolic 93–136; BP diastolic 62–89; PULSE 79–169; RESP 12–31; TEMP 36.4–36.6; O2SAT 62–100; BMI 34.9
[2023-12-10 04:17] LABS: Basophils % 0.1 %; Hematocrit 25.8 % (37-53); Lymphocytes # 0.4 10^3/uL (0.8-4.8); Lymphocytes % 2.2 %; Mean Corpuscular HGB Conc 30.2 g/dL (30-55); Mean Corpuscular Hemoglobin 28.7 pg (27-33); Mean Corpuscular Volume 94.9 fl (82-101); Mean Platelet Volume 11.8 fL (7.4-10.4); Monocytes # 0.2 10^3/uL (0.2-0.9); Monocytes % 0.8 %; Nucleated Red Blood Cells % 0 %; Platelet Count 250 10^3/cmm (157-399); Red Blood Count 2.72 10^6/uL (3.85-5.65); Red Cell Distribution Width 18.1 % (12.1-15.1); White Blood Count 19.57 10^3/uL (3.29-11.43)
[2023-12-10 04:39] LABS: Alanine Aminotransferase < 5 U/L (0-41); Albumin Level 2.8 g/dL (3.5-5.2); Alkaline Phosphatase 96 U/L (40-130); Anion Gap 10.9 (5-19); Aspartate Amino Transferase 9 U/L (0-40); Blood Urea Nitrogen 35 mg/dL (8-23); Calcium 7.9 mg/dL (8.5-10.5); Carbon Dioxide 36 mmol/L (22-29); Chloride 89 mmol/L (98-107); Globulin 2.6 g/dL (1.3-4.6); Glomerular Filtration Rate 60.4 mL/min (90-130); Glucose 178 mg/dL (65-115); Osmolality Calculated 286 mOsm/kg (285-295); Potassium 3.9 mmol/L (3.5-5.1); Sodium 132 mmol/L (136-145); Total Bilirubin 0.2 mg/dL (0.15-1.2); Total Protein 5.4 g/dL (6.6-8.7)
[2023-12-10] MEDS: pantoprazole 40 mg SDV IVP ×2 (05:51→17:19)
[2023-12-10] MEDS: CEFTRIAXONE IV (05:52)
[2023-12-10] MEDS: SODIUM CHLORIDE 0.9% IV (05:52)
[2023-12-10] MEDS: sucralfate 1 gm Tablet PO ×4 (06:04→21:05)
[2023-12-10] MEDS: levalbuterol 0.63 mg/3 mL Neb 0.630000000000000004 MG INHALATION ×2 (08:45→15:01)
[2023-12-10] MEDS: budesonide 0.5 mg/2 mL Neb INHALATION (08:45)
[2023-12-10] MEDS: ipratropium 0.5 mg/2.5 mL Neb INHALATION ×2 (08:45→15:01)
[2023-12-10] MEDS: nystatin 100,000 unit/mL UDC 5 mL 100000 UNIT PO ×4 (09:01→21:05)
--- NOTE | 2023-12-10 09:12 | PC.SOCIAL ---
IMM Update pg 2 of [facility] udpated and reviewed w/ patient. Copy provided. Copy dated, initialed and placed in chart.
[2023-12-10] MEDS: lidocaine 5% Patch 1 PATCH TOPICAL (09:13)
[2023-12-10] MEDS: methylPREDNISolone sod succ 125 mg/2 mL INJ 80 MG IVP (09:14)
[2023-12-10] MEDS: methylPREDNISolone sod succ 125 mg/2 mL INJ 60 MG IVP (09:48)
[2023-12-10] MEDS: enoxaparin 100 mg/mL Syringe SUBCUT (12:22)
--- NOTE | 2023-12-10 13:44 | PM.PN ---
Subjective Subjective: Patient is feeling better. His hemoglobin is dropping to 7.5. Still in atrial fibrillation but the rate seems to be getting under control. No chest pain or shortness of breath. No palpitations. Blood pressure seems to be improving. Also seems to have frequent nonsustained ventricular tachycardia Medications: Medication Review Details: Current Medications Al Hydrox/Mg Hydrox/Simethicone (Kvzg-Zns-Rjzerezvm-Chapo 30 Ml Udc) 15 ml PO Q4H PRN PRN Reason: INDIGESTION Budesonide (Budesonide 0.5 Mg/2 Ml Neb) 0.5 mg INHALATION BID.RESPIRATORY FREYA Last Admin: 12/10/23 08:45 Dose: 0.5 mg Enoxaparin Sodium (Enoxaparin 100 Mg/Ml Syringe) 100 mg 1 mg/kg (100 mg) SUBCUT Q12H [facility]REYA Last Admin: 12/10/23 12:22 Dose: 100 mg Amiodarone HCl/Dextrose (Nexterone) 360 mg in 200 mls @ 0 mls/hr IV .Q0M FRYEA; Protocol Last Admin: 12/10/23 05:54 Dose: 0.5 mg/min, 16.67 mls/hr Ceftriaxone Sodium 2 mg/ (Sodium Chloride) 50 mls @ 100 mls/hr IV Q24H FREYA; Protocol Last Titration: 12/10/23 09:48 Dose: 0 mls/hr Vancomycin/PEG/NADA/Lysine/Water (Vancocin) 1,500 mg in 300 mls @ 200 mls/hr IV Q24H [facility]REYA Last Titration: 12/10/23 03:14 Dose: 0 mls/hr Ipratropium [place] (Ipratropium 0.5 Mg/2.5 Ml Neb) 0.5 mg INHALATION Q6H [facility]REYA Last Admin: 12/10/23 08:45 Dose: 0.5 mg Levalbuterol HCl (Levalbuterol 0.63 Mg/3 Ml Neb) 0.63 mg INHALATION Q6H.RESP [facility]REYA Last Admin: 12/10/23 08:45 Dose: 0.63 mg Lidocaine (Lidocaine 5% Patch) 1 patch TOPICAL [id number] [facility]REYA Last Admin: 12/10/23 09:13 Dose: 1 patch Methylprednisolone Sodium Succinate (Methylprednisolone Sod Succ 125 Mg/2 Ml Inj) 80 mg IVP ONCE FREYA Last Admin: 12/10/23 09:14 Dose: 80 mg Methylprednisolone Sodium Succinate (Methylprednisolone Sod Succ 125 Mg/2 Ml Inj) 60 mg IVP DAILY [facility] Stop: 12/13/23 09:01 Last Admin: 12/10/23 09:48 Dose: 60 mg Morphine Sulfate (Morphine 4 Mg/Ml Sdv 1 Ml) 2 mg IVP Q4H PRN PRN Reason: SEVERE PAIN Last Admin: 12/09/23 12:50 Dose: 2 mg Naloxone HCl (Naloxone 0.4 Mg/Ml Sdv) 0.1 mg IVP Q2M PRN PRN Reason: OPIATERV Nystatin (Nystatin 100,000 Unit/Ml Udc 5 Ml) 100,000 unit PO QID [facility] Last Admin: 12/10/23 12:22 Dose: 100,000 unit Ondansetron HCl (Ondansetron 2 Mg/Ml Sdv 2 Ml) 4 mg IVP Q8H PRN PRN Reason: vomiting, or N/V if npo Pantoprazole Sodium (Pantoprazole Dr 40 Mg Tablet) 40 mg PO BID [facility] Pantoprazole Sodium (Pantoprazole 40 Mg Sdv) 40 mg IVP Q12H [facility] Last Admin: 12/10/23 05:51 Dose: 40 mg Saliva Substitute (Saliva Stimulant [place] 30 Ml Btl) 1 spray MUCOUS MEM Q2H PRN PRN Reason: DRYNESS Sucralfate (Sucralfate 1 Gm Tablet) 1 gm PO AC&BEDTIME [facility] Last Admin: 12/10/23 12:22 Dose: 1 gm Trazodone HCl (Trazodone 50 Mg Tablet) 25 mg PO BEDTIME [facility] Last Admin: 12/09/23 21:26 Dose: 25 mg Vitals/I&O/Wt Last Vital Signs Temp 97.9 F 12/10/23 06:25 Pulse 135 H 12/10/23 10:15 Resp 23 H 12/10/23 10:15 BP 107/68 12/10/23 10:15 Pulse Ox 97 12/10/23 10:15 O2 Del Method Nasal Cannula 12/10/23 08:48 O2 Flow Rate 3 12/10/23 08:48 12/09/23 12/10/23 12/10/23 22:59 06:59 14:59 Intake Total 398.651 / 398.651 500 / 898.651 290 / 290 Output Total 1100 / 1100 Balance 398.651 / 398.651 -600 / -201.349 290 / 290 Weight last 48 hrs Weight 223 lb 3 oz Weight 221 lb 6.4 oz Weight 220 lb Physical Exam Narrative: GENERAL: The patient is alert and oriented times three. Not in any acute distress. HEENT: No significant pallor, icterus or lymphadenopathy.Oral cavity: There are no mucous membrane lesions. NECK: Trachea appears to be central. No masses noted. No JVD or thyromegaly appreciated. RESPIRATORY: Chest is symmetrical. No intercostals muscle retraction or any accessory muscle activation. There is no chest wall tenderness. Breath sounds are heard bilaterally. No rales or rhonchi heard. No evidence of any consolidation. BREASTS: Deferred. HEART: The heart sounds are normal. No S3 or S4. Short systolic murmur in the lower sternal border .No pericardial rub ABDOMEN: No vessel pulsations or distention. No tenderness. No organomegaly appreciated. Bowel sounds are normally heard. : Deferred. RECTAL: Deferred. LYMPHATIC: No lymphadenopathy noted in the neck. EXTREMITIES: Open debrided wound on the lower anterolateral aspect of the right leg. Some healing ulcers on the left leg. 1-2+ edema of both lower extremities. MUSCULOSKELETAL: No acute joint deformities or swelling SKIN: Some features of chronic venous stasis. No cyanosis. NEUROPSYCHIATRIC: The patient is alert and oriented x3. Appears to be in a good mood. No tremors or rigidity noted. Data 12/11/23 03:15 12/11/23 03:15 Micro: Microbiology 12/09/23 12:50 Blood Culture - Preliminary Blood NEGATIVE TO DATE 12/08/23 23:17 Urine Culture - Preliminary Urine,Clean Catch Gram Negative Rods Strep species, gamma-hemolytic 12/08/23 23:58 Blood Culture - Preliminary Blood NEGATIVE TO DATE 12/09/23 00:01 Blood Culture - Preliminary Blood A&P Assessment and plan (1) Atrial fibrillation with RVR: May continue on the amiodarone. Also will start him on a metoprolol 25 mg p.o. twice daily Await the echocardiogram (2) Elevated troponin: Significant elevation of troponin T, may suggest a type I myocardial infarction. Patient was started on subcu Lovenox. Because of anemia, patient need to be carefully monitored for any active GI bleed (3) CHF (congestive heart failure), NYHA class III: This patient has a history of heart failure for more than 6 years. In 2018, he had a cardiac catheterization while he was in [place]. He was told to have no blockages at that point. I may go ahead and do a limited 2D echocardiogram to reevaluate LV function. We also may consider doing a Myocardial perfusion imaging to evaluate for any underlying coronary ischemia. Qualifiers: Congestive heart failure chronicity: chronic Congestive heart failure type: systolic Qualified Code(s): I50.22 - Chronic systolic (congestive) heart failure (4) NSVT (nonsustained ventricular tachycardia): Continue the IV amiodarone and a low-dose of beta-garrick. The heart rhythm need to be closely monitored on telemetry. (5) Gastric ulcer: Continue the current management. Qualifiers: Gastric ulcer chronicity: unspecified ulcer chronicity Gastric ulcer complication status: without hemorrhage or perforation Qualified Code(s): K25.9 - Gastric ulcer, unspecified as acute or chronic, without hemorrhage or perforation (6) HTN (hypertension): The blood pressure has been fluctuating. Currently it seems to be stable Qualifiers: Hypertension type: essential hypertension Qualified Code(s): I10 - Essential (primary) hypertension (7) ALTA (acute kidney injury): The electrolytes and the renal function needs to be closely monitored. (8) Anemia associated with acute blood loss: There seems to be a gradual drop in the hemoglobin. May need to hold off on the Lovenox at this point Plan Other problems are Leukocytosis-possibly from the cellulitis-healing Hyponatremia I discussed with Dr. Marshall Consider stopping the Lovenox and transfuse with packed RBC to keep hemoglobin around 9 Attestations Medical Necessity Statement*: Patient requires continued hospital stay for close monitoring and further management Coding Level of Care Code 81435 Diagnoses Atrial fibrillation with RVR I48.91 Elevated troponin R79.89 Chronic systolic congestive heart failure, NYHA class 3 I50.22 Congestive heart failure chronicity: chronic Congestive heart failure type: systolic NSVT (nonsustained ventricular tachycardia) I47.29 Gastric ulcer without hemorrhage or perforation, unspecified chronicity K25.9 Gastric ulcer chronicity: unspecified ulcer chronicity Gastric ulcer complication status: without hemorrhage or perforation Essential hypertension I10 Hypertension type: essential hypertension ALTA (acute kidney injury) N17.9 Anemia associated with acute blood loss D62
[2023-12-10] MEDS: morphine 4 mg/mL SDV 1 mL 2 MG IVP (14:47)
[2023-12-10] MEDS: cefTRIAXone 2,000 MG in sodium chloride 0.9% (plus) 50 ML 100 MG IV (17:50)
--- NOTE | 2023-12-10 19:07 | PM.PN ---
Subjective Subjective: Overnight, the patient's blood cultures were positive for GPC, so BCx from the PICC line was ordered and vancomycin was added in addition to ceftriaxone. Given the elevation in troponin T, ACS protocol was initiated. Today, he complains that he is full of fluid, and weeping everywhere from his skin such that the bed is wet. He denies any fever, chills, dizziness, lightheadedness, chest pain, palpitations, shortness of breath GI, or symptoms. He has not had a BM today, but he states that he will have a BM at some point tonight. He declines a bowel regimen. Medications: Medication Review Details: Current Medications Al Hydrox/Mg Hydrox/Simethicone (Dsos-Pad-Qfsvfedlk-Chapo 30 Ml Udc) 15 ml PO Q4H PRN PRN Reason: INDIGESTION Budesonide (Budesonide 0.5 Mg/2 Ml Neb) 0.5 mg INHALATION BID.RESPIRATORY FREYA Last Admin: 12/10/23 08:45 Dose: 0.5 mg Enoxaparin Sodium (Enoxaparin 100 Mg/Ml Syringe) 100 mg 1 mg/kg (100 mg) SUBCUT Q12H FREYA Last Admin: 12/10/23 12:22 Dose: 100 mg Amiodarone HCl/Dextrose (Nexterone) 360 mg in 200 mls @ 0 mls/hr IV .Q0M FREYA; Protocol Last Admin: 12/10/23 05:54 Dose: 0.5 mg/min, 16.67 mls/hr Ceftriaxone Sodium 2 mg/ (Sodium Chloride) 50 mls @ 100 mls/hr IV Q24H FREYA; Protocol Last Titration: 12/10/23 09:48 Dose: 0 mls/hr Vancomycin/PEG/[place]/Lysine/Water (Vancocin) 1,500 mg in 300 mls @ 200 mls/hr IV Q24H FREYA Last Titration: 12/10/23 03:14 Dose: 0 mls/hr Ipratropium [place] (Ipratropium 0.5 Mg/2.5 Ml Neb) 0.5 mg INHALATION Q6H FREYA Last Admin: 12/10/23 08:45 Dose: 0.5 mg Levalbuterol HCl (Levalbuterol 0.63 Mg/3 Ml Neb) 0.63 mg INHALATION Q6H.RESP FREYA Last Admin: 12/10/23 08:45 Dose: 0.63 mg Lidocaine (Lidocaine 5% Patch) 1 patch TOPICAL [id number] [facility] Last Admin: 12/10/23 09:13 Dose: 1 patch Methylprednisolone Sodium Succinate (Methylprednisolone Sod Succ 125 Mg/2 Ml Inj) 80 mg IVP ONCE [facility] Last Admin: 12/10/23 09:14 Dose: 80 mg Methylprednisolone Sodium Succinate (Methylprednisolone Sod Succ 125 Mg/2 Ml Inj) 60 mg IVP DAILY [facility] Stop: 12/13/23 09:01 Last Admin: 12/10/23 09:48 Dose: 60 mg Morphine Sulfate (Morphine 4 Mg/Ml Sdv 1 Ml) 2 mg IVP Q4H PRN PRN Reason: SEVERE PAIN Last Admin: 12/09/23 12:50 Dose: 2 mg Naloxone HCl (Naloxone 0.4 Mg/Ml Sdv) 0.1 mg IVP Q2M PRN PRN Reason: OPIATERV Nystatin (Nystatin 100,000 Unit/Ml Udc 5 Ml) 100,000 unit PO QID [facility] Last Admin: 12/10/23 12:22 Dose: 100,000 unit Ondansetron HCl (Ondansetron 2 Mg/Ml Sdv 2 Ml) 4 mg IVP Q8H PRN PRN Reason: vomiting, or N/V if npo Pantoprazole Sodium (Pantoprazole Dr 40 Mg Tablet) 40 mg PO BID [facility] Pantoprazole Sodium (Pantoprazole 40 Mg Sdv) 40 mg IVP Q12H [facility] Last Admin: 12/10/23 05:51 Dose: 40 mg Saliva Substitute (Saliva Stimulant [place] 30 Ml Btl) 1 spray MUCOUS MEM Q2H PRN PRN Reason: DRYNESS Sucralfate (Sucralfate 1 Gm Tablet) 1 gm PO AC&BEDTIME [facility] Last Admin: 12/10/23 12:22 Dose: 1 gm Trazodone HCl (Trazodone 50 Mg Tablet) 25 mg PO BEDTIME [facility] Last Admin: 12/09/23 21:26 Dose: 25 mg Vitals/I&O/Wt Last Vital Signs Temp 97.9 F 12/10/23 06:25 Pulse 109 H 12/10/23 15:57 Resp 23 H 12/10/23 15:57 BP 136/89 12/10/23 15:57 Pulse Ox 62 L 12/10/23 15:57 O2 Del Method Nasal Cannula 12/10/23 15:57 O2 Flow Rate 3 12/10/23 15:57 12/10/23 12/10/23 12/10/23 06:59 14:59 22:59 Intake Total 500 / 898.651 890 / 890 250 / 1140 Output Total 1100 / 1100 325 / 325 Balance -600 / -201.349 890 / 890 -75 / 815 Weight last 48 hrs Weight 101.236 kg Weight 100.425 kg Weight 99.79 kg Physical Exam Const: GENERAL APPEARANCE: cooperative, comfortable and well kempt NUTRITIONAL APPEARANCE: obese ORIENTATION/CONSCIOUSNESS: Yes awake, Yes oriented to person, Yes oriented to place and Yes oriented to time HENMT: COMMON NORMALS: normocephalic, atraumatic and external ears normal HEAD & SCALP: normocephalic and atraumatic EXTERNAL EAR: Yes external ears normal MOUTH: Normal oral and palatal mucosa present THROAT: posterior oropharynx normal Eye: COMMON NORMALS: Equal, round and reactive pupils present PUPIL: Yes Equal, round and reactive pupils present EOM: No EOM abnormal Neck/C-Spine: COMMON NORMALS: Thyroid normal GENERAL: Yes normal visual inspection, Yes trachea midline and Yes anterior neck swelling THYROID: Thyroid normal CAROTIDS: No bruit CERVICAL SPINE: Yes cervical ROM normal Lymph: LYMPHATIC: No no lymphedema noted and lymphadenopathy Chest: CHEST: Yes abnormal inspection of the chest, Yes Symmetrical chest wall rise and Yes laceration Resp: OTHER: B/l expiratory wheezes w/ barely audible breath sounds in the b/l lower lung bases. Cardio: OTHER: irregular rate and rhythm. It is difficult to appreciate any murmurs, rubs, or gallops, given the noise in the room. GI: OTHER: BS+, nontender, nondistended, no guarding, no rigidity, no rebound tenderness, no organomegaly. Extremity: GENERAL: No clubbing, No cyanosis and No edema Neuro: SENSORIUM/ORIENTATION: Yes oriented to person, Yes oriented to place and Yes oriented to time Psych: COMMON NORMALS: speech normal APPEARANCE: Yes well kempt ATTITUDE: Yes calm and Yes engaged SPEECH: Yes normal speech MOOD & AFFECT: Yes euthymic mood Skin: COMMON NORMALS: no rashes or lesions noted GENERAL SKIN EXAM: no rashes or lesions noted Data 12/10/23 03:52 12/10/23 03:52 Micro: Microbiology 12/09/23 12:50 Blood Culture - Preliminary Blood NEGATIVE TO DATE 12/08/23 23:17 Urine Culture - Preliminary Urine,Clean Catch Gram Negative Rods Strep species, gamma-hemolytic 12/08/23 23:58 Blood Culture - Preliminary Blood NEGATIVE TO DATE 12/09/23 00:01 Blood Culture - Preliminary Blood A&P Assessment and plan (1) Sepsis: Qualifiers: Sepsis acute organ dysfunction status: unspecified Sepsis type: sepsis due to unspecified organism Qualified Code(s): A41.9 - Sepsis, unspecified organism Plan #Questionable Syncope #New onset Afib w/ RVR: - due to hypotension, he was given Amiodarone bolus in the ED and started on Amiodarone drip. - On Amiodarone drip and low dose Metoprolol tartrate - TSH wnl. F/u Trop T - Consulted Cardiology. - ECHOwhen HR is less tachycardic #NSTEMI: unclear whether type I vs Type II. - Consulted Cardiology. Per Cardiology, possibly type I - Started ACS protocol based on elevated Trop T, but given concerns about the patient's hx of a recent GI bleed, will d/c full dose lovenox at this time and monitor Trop T - ECHO when HR is less tachycardic #NSVT #HTN: No acute issues at this time. #Acute on chronic HFpEF: TTE on 11/15 shows EF of 72% w/no wall motion abnormalities, and mild tricuspid regurg. #Vol overload - s/p Lasix 20mg IVP x 1 on admission. Strict Is & Os. - Will give a dose of Lasix, albumin, acetazolamide, and metolazone. - I have encouraged the patient to be vigilant about his po intake. #Sepsis: F/u BCx ordered in the ED on 12/08, and BCx from PICC line done on 12/09. #Leukocytosis #Possible UTI: s/p Vanc/Zosyn in the ED. Ceftriaxone on admission - Continued. Added Vanc on 12/09/2023 #Diarrhea: He only had one episode in the custodial. Less likelihood that he had C. diff. #Hyponatremia: Likely hypervolemic at this time. Improving. Monitor renal function. # Acute COPD exacerbation: On duonebs. Added Solumedrol and Azithromycin #Chronic hypoxic respiratory failure on 2-4L NC O2 w/ exertion and 2L NC O2 while at rest or at night. #Gastric ulcers: noted on 11/12/2023 EGD. Continue PPI BID & Sucralfate #R. lower extremity wound - due to R. LE Necrotizing fascitis due to MSSA, Grp A strep, & Enterobacter cloacae - completed IV Cefazolin on 12/03/2023 - Plan was o f/u w/ Gen surg this week to evaluate for skin grafting. - Consulted Surgeon Dr. Ortega on 12/09, who provided wound care recs. Will courtesy notify Dr. Cummings of his hospitalization. #Acute gout: Not an acute issue at this time. Attestations Medical Necessity Statement*: Patient remains hospitalized for Sepsis, likely due to a UTI w/ UCx pending, as well as uncontrolled Afib w/ RVR, NSTEMI, acute on chronic Heart failure w/ reduced ejection fraction, and vol overload. Coding Level of Care Code 52769 Diagnoses Sepsis, due to unspecified organism, unspecified whether acute organ dysfunction present A41.9 Sepsis acute organ dysfunction status: unspecified Sepsis type: sepsis due to unspecified organism
[2023-12-10] MEDS: albumin 25 G/100 ML BAG 60 G IV (20:35)
[2023-12-10] MEDS: FUROsemide 10 mg/mL SDV 10mL 60 MG IVP (20:40)
[2023-12-10] MEDS: acetaZOLAMIDE 250 mg Tablet 500 MG PO (20:45)
[2023-12-10] MEDS: metOLazone 5 MG Tablet PO (20:45)
[2023-12-10 20:59] LABS: Troponin T (5th) Once 739 ng/L (0-15)
--- NOTE | 2023-12-10 21:37 | PC.NURSE ---
Called and spoke with regarding medications. note said patient should be on metoprolol 25mg BID but metoprolol is not ordered. gave order to give one time dose 25mg metoprolol tonight and to start 25mg BID tomorrow.
[2023-12-10] MEDS: metoprolol tartrate 25 mg Tablet PO (21:47)
--- NOTE | 2023-12-10 21:53 | PC.NURSE ---
Messaged regarding patients Troponin of 739, yesterdays 6hr trop was 1025. No new orders received.
[2023-12-10] MEDS: vancomycin 1,500 MG/300 ML PIGGYBACK 200 MG IV (22:14)
[2023-12-11] VITALS (68 sets, daily range): BP systolic 68–123; BP diastolic 23–96; PULSE 62–172; RESP 12–30; TEMP 36.4–36.7; O2SAT 78–100
[2023-12-11] MEDS: morphine 4 mg/mL SDV 1 mL 2 MG IVP ×3 (00:13→17:04)
[2023-12-11] MEDS: trazodone 50 mg Tablet 25 MG PO ×2 (00:16→20:59)
[2023-12-11 03:40] LABS: Basophils % 0.1 %; Eosinophils % 0.1 %; Hematocrit 25.3 % (37-53); Lymphocytes # 0.8 10^3/uL (0.8-4.8); Lymphocytes % 3.4 %; Mean Corpuscular HGB Conc 29.6 g/dL (30-55); Mean Corpuscular Hemoglobin 29.6 pg (27-33); Mean Platelet Volume 11.8 fL (7.4-10.4); Monocytes # 1.1 10^3/uL (0.2-0.9); Monocytes % 4.6 %; Neutrophils # 22.16 10^3/uL (1.8-7.7); Nucleated Red Blood Cells % 0 %; Platelet Count 209 10^3/cmm (157-399); Red Blood Count 2.53 10^6/uL (3.85-5.65); Red Cell Distribution Width 18.5 % (12.1-15.1); White Blood Count 24.35 10^3/uL (3.29-11.43)
[2023-12-11 04:06] LABS: Alanine Aminotransferase < 5 U/L (0-41); Albumin Level 2.9 g/dL (3.5-5.2); Alkaline Phosphatase 85 U/L (40-130); Anion Gap 13.3 (5-19); Aspartate Amino Transferase 8 U/L (0-40); Blood Urea Nitrogen 33 mg/dL (8-23); Carbon Dioxide 34 mmol/L (22-29); Chloride 89 mmol/L (98-107); Creatinine Clr Calc Pharmacy 58.0483; Globulin 2.4 g/dL (1.3-4.6); Glomerular Filtration Rate 50.5 mL/min (90-130); Glucose 114 mg/dL (65-115); Magnesium 2.6 mg/dL (1.7-2.3); Osmolality Calculated 284 mOsm/kg (285-295); Phosphorus 2.9 mg/dL (2.5-4.5); Potassium 3.3 mmol/L (3.5-5.1); Sodium 133 mmol/L (136-145); Total Bilirubin 0.2 mg/dL (0.15-1.2); Total Protein 5.3 g/dL (6.6-8.7)
[2023-12-11 04:12] LABS: NT Pro B Type Natriuretic Pept 4364 pg/mL (0-125)
[2023-12-11] MEDS: pantoprazole 40 mg SDV IVP ×2 (04:20→17:06)
[2023-12-11] MEDS: sucralfate 1 gm Tablet PO ×4 (06:42→20:59)
[2023-12-11] MEDS: levalbuterol 0.63 mg/3 mL Neb 0.630000000000000004 MG INHALATION ×2 (07:33→14:06)
[2023-12-11] MEDS: ipratropium 0.5 mg/2.5 mL Neb INHALATION ×2 (07:33→14:06)
[2023-12-11] MEDS: nystatin 100,000 unit/mL UDC 5 mL 100000 UNIT PO ×4 (10:13→21:00)
[2023-12-11] MEDS: methylPREDNISolone sod succ 125 mg/2 mL INJ 80 MG IVP (10:13)
[2023-12-11] MEDS: meropenem 1,000 MG in sodium chloride 0.9% (plus) 50 ML 100 MG IV ×2 (10:14→16:59)
[2023-12-11] MEDS: lidocaine 5% Patch 1 PATCH TOPICAL (10:14)
[2023-12-11] MEDS: midodrine 5 mg TABLET PO ×2 (10:16→16:59)
[2023-12-11] MEDS: methylPREDNISolone sod succ 125 mg/2 mL INJ 60 MG IVP (10:17)
--- NOTE | 2023-12-11 10:19 | PM.PN ---
Subjective Subjective: Patient states that he urinated 4L overnight after being given a combination of Lasix, albumin, metolazone and acetazolamide. He is sleepy, because he urinated for most of the night, but he has no complaints this morning. He is in better spirits because he is less volume overloaded. He is hypotensive to the 80s this morning, and his leukocytosis is worsening again despite being on vancomycin and ceftriaxone. I discontinued the Ceftriaxone and switched him to meropenem, due to concerns for a bacterial resistant organism. Speciation and sensitivities are still pending. Patient with leukocytosis could also be increased due to him being on Solu-Medrol for COPD exacerbation. He remains in A-fib with RVR, based on discussion with the auger machine offbearer, will transfuse him with 1 unit PRBC. I will consider an ID consult. His anemia is likely due to his medical conditions, so I will get an FOBT. I will also give a dose of Midodrine and based on his BP, may give him another dose of furosemide. Medications: Reviewed: Yes Vitals/I&O/Wt Last Vital Signs Temp 97.6 F 12/11/23 00:20 Pulse 119 H 12/11/23 08:00 Resp 22 H 12/11/23 10:11 BP 123/96 12/11/23 04:00 Pulse Ox 99 12/11/23 07:38 O2 Del Method Nasal Cannula 12/11/23 07:38 O2 Flow Rate 3 12/11/23 07:38 12/10/23 12/11/23 12/11/23 22:59 06:59 14:59 Intake Total 590 / 1480 719.48 / 2199.48 Output Total 1950 / 1950 1100 / 3050 300 / 300 Balance -1360 / -470 -380.52 / -850.52 -300 / -300 Weight last 48 hrs Weight 96.706 kg Weight 101.236 kg Weight 100.425 kg Physical Exam Const: GENERAL APPEARANCE: cooperative, comfortable and well kempt NUTRITIONAL APPEARANCE: obese ORIENTATION/CONSCIOUSNESS: Yes awake, Yes oriented to person, Yes oriented to place and Yes oriented to time HENMT: COMMON NORMALS: normocephalic, atraumatic and external ears normal HEAD & SCALP: normocephalic and atraumatic EXTERNAL EAR: Yes external ears normal MOUTH: Normal oral and palatal mucosa present THROAT: posterior oropharynx normal Eye: COMMON NORMALS: Equal, round and reactive pupils present PUPIL: Yes Equal, round and reactive pupils present EOM: No EOM abnormal Neck/C-Spine: COMMON NORMALS: Thyroid normal GENERAL: Yes normal visual inspection, Yes trachea midline and Yes anterior neck swelling THYROID: Thyroid normal CAROTIDS: No bruit CERVICAL SPINE: Yes cervical ROM normal Lymph: LYMPHATIC: No no lymphedema noted and lymphadenopathy Chest: CHEST: Yes abnormal inspection of the chest, Yes Symmetrical chest wall rise and Yes laceration Resp: OTHER: B/l expiratory wheezes w/ barely audible breath sounds in the b/l lower lung bases. Cardio: OTHER: irregular rate and rhythm. It is difficult to appreciate any murmurs, rubs, or gallops, given the noise in the room. GI: OTHER: BS+, nontender, nondistended, no guarding, no rigidity, no rebound tenderness, no organomegaly. Extremity: GENERAL: No clubbing, No cyanosis and No edema Neuro: SENSORIUM/ORIENTATION: Yes oriented to person, Yes oriented to place and Yes oriented to time Psych: COMMON NORMALS: speech normal APPEARANCE: Yes well kempt ATTITUDE: Yes calm and Yes engaged SPEECH: Yes normal speech MOOD & AFFECT: Yes euthymic mood Skin: COMMON NORMALS: no rashes or lesions noted GENERAL SKIN EXAM: no rashes or lesions noted Data 12/11/23 03:15 12/11/23 03:15 Micro: Microbiology 12/09/23 12:50 Blood Culture - Preliminary Blood NEGATIVE TO DATE 12/08/23 23:17 Urine Culture - Preliminary Urine,Clean Catch Gram Negative Rods Strep species, gamma-hemolytic A&P Assessment and plan (1) Sepsis: Qualifiers: Sepsis type: sepsis due to unspecified organism Sepsis acute organ dysfunction status: unspecified Qualified Code(s): A41.9 - Sepsis, unspecified organism Plan #Questionable Syncope #New onset Afib w/ RVR: - due to hypotension, he was given Amiodarone bolus in the ED and started on Amiodarone drip. - On Amiodarone drip and low dose Metoprolol tartrate - TSH wnl. F/u Trop T - Consulted Cardiology. - ECHO when HR is less tachycardic #NSTEMI: unclear whether type I vs Type II. - Consulted Cardiology. Per Cardiology, possibly type I - Started ACS protocol based on elevated Trop T, but given concerns about the patient's hx of a recent GI bleed, will d/c full dose lovenox at this time and monitor Trop T - ECHO when HR is less tachycardic #NSVT #HTN: No acute issues at this time. #Acute on chronic HFpEF: TTE on 11/15 shows EF of 72% w/no wall motion abnormalities, and mild tricuspid regurg. #Vol overload - s/p Lasix 20mg IVP x 1 on admission. Strict Is & Os. - s/p Lasix, albumin, acetazolamide, and metolazone on 12/10. - I have encouraged the patient to be vigilant about his po intake. #Sepsis: F/u BCx ordered in the ED on 12/08, and BCx from PICC line done on 12/09. #Leukocytosis #UTI: s/p Vanc/Zosyn in the ED. Ceftriaxone since admission. D/c'ed Ceftriaxone on 12/10 and started Meropenem. Added Vanc on 12/09/2023 #Diarrhea: He only had one episode in the senior living. Less likelihood that he had C. diff. #Hyponatremia: Likely hypervolemic at this time. Improving. Monitor renal function. # Acute COPD exacerbation: On duonebs. Added Solumedrol on 12/09. Started Azithromycin po on 12/11. #Chronic hypoxic respiratory failure on 2-4L NC O2 w/ exertion and 2L NC O2 while at rest or at night. #Anemia: likely of chronic disease. Follow-up iron studies. #Gastric ulcers: noted on 11/12/2023 EGD. Continue PPI BID & Sucralfate #R. lower extremity wound - due to R. LE Necrotizing fascitis due to MSSA, Grp A strep, & Enterobacter cloacae - completed IV Cefazolin on 12/03/2023 - Plan was o f/u w/ Gen surg this week to evaluate for skin grafting. - Consulted Surgeon Dr. Ortega on 12/09, who provided wound care recs. Will courtesy notify Dr. Cummings of his hospitalization. #Acute gout: Not an acute issue at this time. #Constipation: Lactulose 30gm x 1 on 12/11. DVT ppx: Lovenox subq per discussion w/ Coal Yard Supervisor Attestations Medical Necessity Statement*: The patient remains hospitalized for active management of A-fib with RVR, NSTEMI, acute on chronic heart failure, volume overload. Coding Level of Care Code 82215 Diagnoses Sepsis, due to unspecified organism, unspecified whether acute organ dysfunction present A41.9 Sepsis type: sepsis due to unspecified organism Sepsis acute organ dysfunction status: unspecified
[2023-12-11] MEDS: enoxaparin 40 mg/0.4 mL Syringe SUBCUT (12:50)
[2023-12-11] MEDS: aspirin 81 mg Chew Tablet PO (12:50)
[2023-12-11] MEDS: azithromycin 250 mg Tablet 500 MG PO (12:50)
[2023-12-11] MEDS: sodium chloride 0.9% 100 mL Bag 50 ML IV (12:56)
--- NOTE | 2023-12-11 16:30 | PC.NURSE ---
Blood transfused. See Vital Signs record for all VS during transfusion from 13:15 - 16:30
--- NOTE | 2023-12-11 18:40 | PM.PN ---
Subjective Subjective: Patient was given IV Lasix last night. He had a close to 3 L of urine output. His blood pressure dropped to the 70s and 80s this morning. Currently he is on a fluid challenge. Medications: Medication Review Details: Current Medications Al Hydrox/Mg Hydrox/Simethicone (Acto-Bwd-Wwpuapuwu-Chapo 30 Ml Udc) 15 ml PO Q4H PRN PRN Reason: INDIGESTION Aspirin (Aspirin 81 Mg Chew Tablet) 81 mg PO DAILY FREYA Last Admin: 12/11/23 12:50 Dose: 81 mg Azithromycin (Azithromycin 250 Mg Tablet) 500 mg PO DAILY FREYA; Protocol Stop: 12/15/23 09:01 Last Admin: 12/11/23 12:50 Dose: 500 mg Budesonide (Budesonide 0.5 Mg/2 Ml Neb) 0.5 mg INHALATION BID.RESPIRATORY FREYA Last Admin: 12/11/23 07:33 Dose: Not Given Enoxaparin Sodium (Enoxaparin 40 Mg/0.4 Ml Syringe) 40 mg SUBCUT Q24H FREYA Last Admin: 12/11/23 12:50 Dose: 40 mg Amiodarone HCl/Dextrose (Nexterone) 360 mg in 200 mls @ 0 mls/hr IV .Q0M FREYA; Protocol Last Admin: 12/11/23 16:59 Dose: 0.5 mg/min, 16.67 mls/hr Vancomycin/PEG/NADA/Lysine/Water (Vancocin) 1,500 mg in 300 mls @ 200 mls/hr IV Q24H FREYA Last Infusion: 12/11/23 00:24 Dose: Infused Meropenem 1,000 mg/ Sodium (Chloride) 50 mls @ 100 mls/hr IV Q8H [facility]; Protocol Last Infusion: 12/11/23 17:24 Dose: Infused Ipratropium [place] (Ipratropium 0.5 Mg/2.5 Ml Neb) 0.5 mg INHALATION Q6H FREYA Last Admin: 12/11/23 14:06 Dose: 0.5 mg Levalbuterol HCl (Levalbuterol 0.63 Mg/3 Ml Neb) 0.63 mg INHALATION Q6H.RESP FREYA Last Admin: 12/11/23 14:06 Dose: 0.63 mg Lidocaine (Lidocaine 5% Patch) 1 patch TOPICAL [id number] FREYA Last Admin: 12/11/23 10:14 Dose: 1 patch Methylprednisolone Sodium Succinate (Methylprednisolone Sod Succ 125 Mg/2 Ml Inj) 80 mg IVP ONCE [facility] Last Admin: 12/11/23 10:13 Dose: 80 mg Methylprednisolone Sodium Succinate (Methylprednisolone Sod Succ 125 Mg/2 Ml Inj) 60 mg IVP DAILY [facility] Stop: 12/13/23 09:01 Last Admin: 12/11/23 10:17 Dose: 60 mg Metoprolol Tartrate (Metoprolol Tartrate 25 Mg Tablet) 25 mg PO BID@0900,2100 [facility] Last Admin: 12/11/23 09:39 Dose: Not Given Midodrine (Midodrine 5 Mg Tablet) 5 mg PO Q8H [facility] Last Admin: 12/11/23 16:59 Dose: 5 mg Morphine Sulfate (Morphine 4 Mg/Ml Sdv 1 Ml) 2 mg IVP Q4H PRN PRN Reason: SEVERE PAIN Last Admin: 12/11/23 17:04 Dose: 2 mg Naloxone HCl (Naloxone 0.4 Mg/Ml Sdv) 0.1 mg IVP Q2M PRN PRN Reason: OPIATERV Nystatin (Nystatin 100,000 Unit/Ml Udc 5 Ml) 100,000 unit PO QID [facility] Last Admin: 12/11/23 16:59 Dose: 100,000 unit Ondansetron HCl (Ondansetron 2 Mg/Ml Sdv 2 Ml) 4 mg IVP Q8H PRN PRN Reason: vomiting, or N/V if npo Pantoprazole Sodium (Pantoprazole Dr 40 Mg Tablet) 40 mg PO BID [facility] Pantoprazole Sodium (Pantoprazole 40 Mg Sdv) 40 mg IVP Q12H [facility] Last Admin: 12/11/23 17:06 Dose: 40 mg Saliva Substitute (Saliva Stimulant [place] 30 Ml Btl) 1 spray MUCOUS MEM Q2H PRN PRN Reason: DRYNESS Sodium Chloride (Sodium Chloride 0.9% 100 Ml Bag) 50 ml IV PRN PRN PRN Reason: Blood transfusion prime and flush Stop: 12/12/23 09:54 Last Admin: 12/11/23 12:56 Dose: 50 ml Sucralfate (Sucralfate 1 Gm Tablet) 1 gm PO AC&BEDTIME [facility] Last Admin: 12/11/23 17:09 Dose: 1 gm Trazodone HCl (Trazodone 50 Mg Tablet) 25 mg PO BEDTIME [facility] Last Admin: 12/11/23 00:16 Dose: 25 mg Vitals/I&O/Wt Last Vital Signs Temp 97.6 F 12/11/23 00:20 Pulse 98 12/11/23 16:30 Resp 15 12/11/23 17:04 BP 98/59 12/11/23 16:30 Pulse Ox 97 12/11/23 16:30 O2 Del Method Nasal Cannula 12/11/23 14:00 O2 Flow Rate 3 12/11/23 14:00 12/11/23 12/11/23 12/11/23 06:59 14:59 22:59 Intake Total 719.48 / 2199.48 290 / 290 250 / 540 Output Total 1100 / 3050 600 / 600 Balance -380.52 / -850.52 -310 / -310 250 / -60 Weight last 48 hrs Weight 213 lb 3.2 oz Weight 223 lb 3 oz Physical Exam Narrative: GENERAL: The patient is alert and oriented times three. Not in any acute distress. HEENT: No significant pallor, icterus or lymphadenopathy.Oral cavity: There are no mucous membrane lesions. NECK: Trachea appears to be central. No masses noted. No JVD or thyromegaly appreciated. RESPIRATORY: Chest is symmetrical. No intercostals muscle retraction or any accessory muscle activation. There is no chest wall tenderness. Breath sounds are heard bilaterally. No rales or rhonchi heard. No evidence of any consolidation. BREASTS: Deferred. HEART: The heart sounds are normal. No S3 or S4. Short systolic murmur in the lower sternal border .No pericardial rub ABDOMEN: No vessel pulsations or distention. No tenderness. No organomegaly appreciated. Bowel sounds are normally heard. : Deferred. RECTAL: Deferred. LYMPHATIC: No lymphadenopathy noted in the neck. EXTREMITIES: Open debrided wound on the lower anterolateral aspect of the right leg. Some healing ulcers on the left leg. 1-2+ edema of both lower extremities. MUSCULOSKELETAL: No acute joint deformities or swelling SKIN: Some features of chronic venous stasis. No cyanosis. NEUROPSYCHIATRIC: The patient is alert and oriented x3. Appears to be in a good mood. No tremors or rigidity noted. Data 12/11/23 03:15 12/11/23 03:15 Other Labs: Laboratory Last Values WBC 24.35 10^3/uL (3.29-11.43) H 12/11/23 03:15 RBC 2.53 10^6/uL (3.85-5.65) L 12/11/23 03:15 Hgb 7.50 g/dL (11.27-16.99) L 12/11/23 03:15 Hct 25.3 % (37-53) L 12/11/23 03:15 MCV 100.0 fl (82-101) D 12/11/23 03:15 MCH 29.6 pg (27-33) 12/11/23 03:15 MCHC 29.6 g/dL (30-55) L 12/11/23 03:15 RDW 18.5 % (12.1-15.1) H 12/11/23 03:15 Plt Count 209 10^3/cmm (157-399) 12/11/23 03:15 MPV 11.8 fL (7.4-10.4) H 12/11/23 03:15 Neut % (Auto) 91.0 % 12/11/23 03:15 Lymph % (Auto) 3.4 % 12/11/23 03:15 [place] % (Auto) 4.6 % 12/11/23 03:15 Eos % (Auto) 0.1 % 12/11/23 03:15 Baso % (Auto) 0.1 % 12/11/23 03:15 Neut # (Auto) 22.16 10^3/uL (1.8-7.7) H 12/11/23 03:15 Lymph # (Auto) 0.8 10^3/uL (0.8-4.8) 12/11/23 03:15 [place] # (Auto) 1.1 10^3/uL (0.2-0.9) H 12/11/23 03:15 Eos # (Auto) 0.0 10^3/uL (0.0-0.8) 12/11/23 03:15 Baso # (Auto) 0.0 10^3/uL (0.0-0.1) 12/11/23 03:15 Nucleated RBC % (auto) 0 % 12/11/23 03:15 Nucleated RBCs # 0.0 /100WBC 12/11/23 03:15 ESR 16 mm/hr (0-10) H 12/08/23 23:11 PT 16.90 SECONDS (12.1-14.9) H 12/08/23 23:11 INR 1.33 (0.8-1.2) H 12/08/23 23:11 Sodium 133 mmol/L (136-145) L 12/11/23 03:15 Potassium 3.3 mmol/L (3.5-5.1) L 12/11/23 03:15 Chloride 89 mmol/L (98-107) L 12/11/23 03:15 Carbon Dioxide 34 mmol/L (22-29) H 12/11/23 03:15 Anion Gap 13.3 (5-19) 12/11/23 03:15 BUN 33 mg/dL (8-23) H 12/11/23 03:15 Creatinine 1.4 mg/dL (0.7-1.2) H 12/11/23 03:15 GFR Calculation 50.5 mL/min (90-130) L 12/11/23 03:15 Glucose 114 mg/dL (65-115) 12/11/23 03:15 POC Glucose 105 mg/dL (70-110) 12/09/23 11:10 Calculated Osmolality 284 mOsm/kg (285-295) L 12/11/23 03:15 Lactic Acid 1.3 mmol/L (0.5-2.2) 12/08/23 23:11 Calcium 8.0 mg/dL (8.5-10.5) L 12/11/23 03:15 Phosphorus 2.9 mg/dL (2.5-4.5) 12/11/23 03:15 Magnesium 2.6 mg/dL (1.7-2.3) H 12/11/23 03:15 Total Bilirubin 0.2 mg/dL (0.15-1.2) 12/11/23 03:15 AST 8 U/L (0-40) 12/11/23 03:15 ALT < 5 U/L (0-41) 12/11/23 03:15 Alkaline Phosphatase 85 U/L (40-130) 12/11/23 03:15 Troponin T 5th Gen ng/L 739 ng/L (0-15) H* 12/10/23 20:31 Troponin T Baseline 984 ng/L (0-15) H* 12/09/23 08:36 Troponin T 120 Minute 986.0 ng/L (0-15) H 12/09/23 10:44 Delta Troponin T 2.0 ABS# (0-10) 12/09/23 10:44 Troponin T Hi Sens 6Hr 1025 ng/L (0-15) H 12/09/23 14:24 Troponin T Hi Sens 6Hr Delta 41 ng/L (0-12) H* 12/09/23 14:24 C-Reactive Protein 29.9 mg/L (0.0-4.9) H 12/08/23 23:11 NT-Pro-B Natriuret Pep 4364 pg/mL (0-125) H 12/11/23 03:15 Total Protein 5.3 g/dL (6.6-8.7) L 12/11/23 03:15 Albumin 2.9 g/dL (3.5-5.2) L 12/11/23 03:15 Globulin 2.4 g/dL (1.3-4.6) 12/11/23 03:15 Procalcitonin 0.22 ng/mL (0-0.5) 12/08/23 23:11 TSH 2.64 uIU/mL (0.27-4.20) 12/09/23 08:36 Free T4 1.11 ng/dL (0.82-1.77) 12/09/23 08:36 Urine Color Yellow (Yellow) 12/08/23 23:17 Urine Appearance Cloudy (CLEAR) A 12/08/23 23:17 Urine pH 6.5 (5-7) 12/08/23 23:17 Ur Specific [place] 1.005 (1.005-1.030) 12/08/23 23:17 Urine Protein Trace (Negative) 12/08/23 23:17 Urine Glucose (UA) Trace (Normal) H 12/08/23 23:17 Urine Ketones Negative (Negative) 12/08/23 23:17 Urine Blood 3+ (Negative) H 12/08/23 23:17 Urine Nitrate Negative (Negative) 12/08/23 23:17 Urine Bilirubin Neg (Negative) 12/08/23 23:17 Urine Urobilinogen Neg mg/dL (Negative) 12/08/23 23:17 Ur Leukocyte Esterase 2+ (Negative) H 12/08/23 23:17 Urine RBC 15-25 /hpf (0-2) H 12/08/23 23:17 Urine WBC 25-40 /hpf (0-5) H 12/08/23 23:17 Ur Squamous Epith Cells None /hpf (0-5) 12/08/23 23:17 Amorphous Sediment Not Reportable 12/08/23 23:17 Urine Bacteria 3+ /hpf (NONE) H 12/08/23 23:17 Urine Mucus 2+ /hpf 12/08/23 23:17 Blood Type AB Negative 12/11/23 11:20 Rho(D) Type Negative 12/11/23 11:20 Antibody Screen Negative 12/11/23 11:20 Crossmatch See Detail 12/11/23 11:20 Micro: Microbiology 12/08/23 23:17 Urine Culture - Preliminary Urine,Clean Catch Escherichia coli Strep species, gamma-hemolytic 12/09/23 12:50 Blood Culture - Preliminary Blood NEGATIVE TO DATE A&P Assessment and plan (1) Hypotension: This could be multifactorial. Arrhythmia, LV dysfunction, ischemia, anemia etc. are considerations. It may be appropriate to transfuse him with packed RBCs to maintain hemoglobin around 9 Qualifiers: Hypotension type: other hypotension type Qualified Code(s): I95.89 - Other hypotension (2) Atrial fibrillation with RVR: The heart rate seems to be getting under control. He seems to have frequent nonsustained ventricular tachycardia. Currently he is on amiodarone and metoprolol (3) Elevated troponin: Significant elevation of troponin T, may suggest a type I myocardial infarction. The Lovenox had to be discontinued because of the drop in the hemoglobin. Planning for blood transfusion today. (4) CHF (congestive heart failure), NYHA class III: Patient seems to have significant drop in the LV ejection fraction from 27th of last month. The current ejection fraction is around 40 to 45% by echocardiogram. He has multiple wall motion normalities. He requires a cardiac catheterization to further evaluate his coronary status and decide on further management. Qualifiers: Congestive heart failure type: systolic Congestive heart failure chronicity: chronic Qualified Code(s): I50.22 - Chronic systolic (congestive) heart failure (5) NSVT (nonsustained ventricular tachycardia): Continue the IV amiodarone and a low-dose of beta-garrick. The heart rhythm need to be closely monitored on telemetry. (6) Gastric ulcer: Continue the current management. Qualifiers: Gastric ulcer chronicity: unspecified ulcer chronicity Gastric ulcer complication status: without hemorrhage or perforation Qualified Code(s): K25.9 - Gastric ulcer, unspecified as acute or chronic, without hemorrhage or perforation (7) ALTA (acute kidney injury): The electrolytes and the renal function needs to be closely monitored. (8) Anemia associated with acute blood loss: There seems to be a gradual drop in the hemoglobin. Blood transfusion today Plan Other problems are Leukocytosis-he is a concern. He may have ongoing infection Hyponatremia Blood transfusion today. Repeat CBC in the morning. Need to discuss about any early cardiac catheterization. He carries a high risk for bleeding, contrast-induced nephropathy and other concomitant complications Attestations Medical Necessity Statement*: Patient requires continued hospital stay for close monitoring and further management Coding Level of Care Code Acute Code for Chg Fwd Diagnoses Other specified hypotension I95.89 Hypotension type: other hypotension type Atrial fibrillation with RVR I48.91 Elevated troponin R79.89 Chronic systolic congestive heart failure, NYHA class 3 I50.22 Congestive heart failure type: systolic Congestive heart failure chronicity: chronic NSVT (nonsustained ventricular tachycardia) I47.29 Gastric ulcer without hemorrhage or perforation, unspecified chronicity K25.9 Gastric ulcer chronicity: unspecified ulcer chronicity Gastric ulcer complication status: without hemorrhage or perforation ALTA (acute kidney injury) N17.9 Anemia associated with acute blood loss D62
--- NOTE | 2023-12-11 19:43 | PC.NURSE ---
Blood transfusion starrted at 13:15. Pt was monitored for the first 15 minutes and no reaction was noted. Blood transfusion ended at 16:15 without difficulties noted. Pt tolerated well.
[2023-12-11 20:17] LABS: Hematocrit 29.5 % (37-53)
[2023-12-11] MEDS: metoprolol tartrate 25 mg Tablet PO (20:59)
[2023-12-11] MEDS: vancomycin 1,500 MG/300 ML PIGGYBACK 200 MG IV (21:03)
[2023-12-12] VITALS (19 sets, daily range): BP systolic 81–135; BP diastolic 54–78; PULSE 54–96; RESP 12–19; TEMP 36.4–36.8; O2SAT 96–99
[2023-12-12] MEDS: meropenem 1,000 MG in sodium chloride 0.9% (plus) 50 ML 100 MG IV (00:19)
[2023-12-12] MEDS: midodrine 5 mg TABLET PO ×3 (02:12→17:40)
[2023-12-12] MEDS: morphine 4 mg/mL SDV 1 mL 2 MG IVP ×3 (03:45→23:32)
[2023-12-12 03:52] LABS: Basophils % 0.1 %; Hematocrit 31.3 % (37-53); Lymphocytes # 0.5 10^3/uL (0.8-4.8); Mean Corpuscular HGB Conc 30.4 g/dL (30-55); Mean Corpuscular Hemoglobin 29.2 pg (27-33); Mean Corpuscular Volume 96.3 fl (82-101); Monocytes # 0.4 10^3/uL (0.2-0.9); Monocytes % 1.7 %; Neutrophils # 22.26 10^3/uL (1.8-7.7); Neutrophils % 95.3 %; Nucleated Red Blood Cells % 0 %; Platelet Count 190 10^3/cmm (157-399); Red Blood Count 3.25 10^6/uL (3.85-5.65); Red Cell Distribution Width 18.3 % (12.1-15.1); White Blood Count 23.35 10^3/uL (3.29-11.43)
[2023-12-12 04:18] LABS: Ferritin 484 ng/mL (30-400); Iron 72 ug/dL (59-158); Total Iron Binding Capacity 189 mcg/dl; Unsaturated Iron Binding 117 ug/dL (112-347)
[2023-12-12 04:19] LABS: Alanine Aminotransferase < 5 U/L (0-41); Alkaline Phosphatase 92 U/L (40-130); Anion Gap 16.7 (5-19); Aspartate Amino Transferase 7 U/L (0-40); Blood Urea Nitrogen 35 mg/dL (8-23); Calcium 8.2 mg/dL (8.5-10.5); Carbon Dioxide 31 mmol/L (22-29); Chloride 89 mmol/L (98-107); Creatinine Clr Calc Pharmacy 52.9537; Globulin 2.7 g/dL (1.3-4.6); Glomerular Filtration Rate 46.7 mL/min (90-130); Glucose 123 mg/dL (65-115); Magnesium 2.7 mg/dL (1.7-2.3); Osmolality Calculated 285 mOsm/kg (285-295); Phosphorus 4.3 mg/dL (2.5-4.5); Potassium 3.7 mmol/L (3.5-5.1); Sodium 133 mmol/L (136-145); Total Bilirubin 0.5 mg/dL (0.15-1.2); Total Protein 5.7 g/dL (6.6-8.7)
[2023-12-12 04:33] LABS: Folate Level 5.2 ng/mL (4.5-32.2)
[2023-12-12 04:34] LABS: Vitamin B12 711 pg/mL (232-1245)
[2023-12-12] MEDS: pantoprazole 40 mg SDV IVP ×2 (05:39→17:43)
[2023-12-12] MEDS: sucralfate 1 gm Tablet PO ×4 (06:40→20:36)
[2023-12-12] MEDS: meropenem 1,000 MG in sodium chloride 0.9% (plus) 50 ML 200 MG IV (07:45)
--- NOTE | 2023-12-12 08:26 | P.PN_ITS ---
Subjective 2 Subjective: The patient is feeling better. Telemetry shows that he is back in sinus rhythm. Blood pressure is soft but is stable. No chest pain or shortness of breath. Medications: Medication Review Details: Current Medications Al Hydrox/Mg Hydrox/Simethicone (Qrvi-Sbk-Rjvfigppe-Chapo 30 Ml Udc) 15 ml PO Q4H PRN PRN Reason: INDIGESTION Aspirin (Aspirin 81 Mg Chew Tablet) 81 mg PO DAILY FREYA Last Admin: 12/11/23 12:50 Dose: 81 mg Azithromycin (Azithromycin 250 Mg Tablet) 500 mg PO DAILY FREYA; Protocol Stop: 12/15/23 09:01 Last Admin: 12/11/23 12:50 Dose: 500 mg Budesonide (Budesonide 0.5 Mg/2 Ml Neb) 0.5 mg INHALATION BID.RESPIRATORY FREYA Last Admin: 12/11/23 20:06 Dose: Not Given Enoxaparin Sodium (Enoxaparin 40 Mg/0.4 Ml Syringe) 40 mg SUBCUT Q24H FREYA Last Admin: 12/11/23 12:50 Dose: 40 mg Amiodarone HCl/Dextrose (Nexterone) 360 mg in 200 mls @ 0 mls/hr IV .Q0M FREYA; Protocol Last Admin: 12/12/23 05:40 Dose: 0.5 mg/min, 16.67 mls/hr Vancomycin/PEG/NADA/Lysine/Water (Vancocin) 1,500 mg in 300 mls @ 200 mls/hr IV Q24H FREYA Last Infusion: 12/11/23 23:57 Dose: Infused Meropenem 1,000 mg/ Sodium (Chloride) 50 mls @ 100 mls/hr IV Q8H FREYA; Protocol Last Infusion: 12/12/23 08:11 Dose: Infused Albumin Human (Albumin) 25 g in 100 mls @ 60 mls/hr IV ONCE ONE Stop: 12/12/23 09:53 Ipratropium [place] (Ipratropium 0.5 Mg/2.5 Ml Neb) 0.5 mg INHALATION Q6H FREYA Last Admin: 12/12/23 02:34 Dose: Not Given Levalbuterol HCl (Levalbuterol 0.63 Mg/3 Ml Neb) 0.63 mg INHALATION Q6H.RESP FREYA Last Admin: 12/12/23 02:35 Dose: Not Given Lidocaine (Lidocaine 5% Patch) 1 patch TOPICAL [id number] [facility] Last Admin: 12/11/23 20:36 Dose: Not Given Methylprednisolone Sodium Succinate (Methylprednisolone Sod Succ 125 Mg/2 Ml Inj) 80 mg IVP ONCE [facility] Last Admin: 12/11/23 10:13 Dose: 80 mg Methylprednisolone Sodium Succinate (Methylprednisolone Sod Succ 125 Mg/2 Ml Inj) 60 mg IVP DAILY [facility] Stop: 12/13/23 09:01 Last Admin: 12/11/23 10:17 Dose: 60 mg Metoprolol Tartrate (Metoprolol Tartrate 25 Mg Tablet) 25 mg PO BID@0900,2100 [facility] Last Admin: 12/11/23 20:59 Dose: 25 mg Midodrine (Midodrine 5 Mg Tablet) 5 mg PO Q8H [facility] Last Admin: 12/12/23 02:12 Dose: 5 mg Morphine Sulfate (Morphine 4 Mg/Ml Sdv 1 Ml) 2 mg IVP Q4H PRN PRN Reason: SEVERE PAIN Last Admin: 12/12/23 03:45 Dose: 2 mg Naloxone HCl (Naloxone 0.4 Mg/Ml Sdv) 0.1 mg IVP Q2M PRN PRN Reason: OPIATERV Nystatin (Nystatin 100,000 Unit/Ml Udc 5 Ml) 100,000 unit PO QID [facility] Last Admin: 12/11/23 21:00 Dose: 100,000 unit Ondansetron HCl (Ondansetron 2 Mg/Ml Sdv 2 Ml) 4 mg IVP Q8H PRN PRN Reason: vomiting, or N/V if npo Pantoprazole Sodium (Pantoprazole Dr 40 Mg Tablet) 40 mg PO BID [facility] Pantoprazole Sodium (Pantoprazole 40 Mg Sdv) 40 mg IVP Q12H [facility] Last Admin: 12/12/23 05:39 Dose: 40 mg Saliva Substitute (Saliva Stimulant [place] 30 Ml Btl) 1 spray MUCOUS MEM Q2H PRN PRN Reason: DRYNESS Sodium Chloride (Sodium Chloride 0.9% 100 Ml Bag) 50 ml IV PRN PRN PRN Reason: Blood transfusion prime and flush Stop: 12/12/23 09:54 Last Admin: 12/11/23 12:56 Dose: 50 ml Sucralfate (Sucralfate 1 Gm Tablet) 1 gm PO AC&BEDTIME [facility] Last Admin: 12/12/23 06:40 Dose: 1 gm Trazodone HCl (Trazodone 50 Mg Tablet) 25 mg PO BEDTIME FREYA Last Admin: 12/11/23 20:59 Dose: 25 mg Vitals/I&O/Wt Last Vital Signs Temp 97.6 F 12/12/23 07:49 Pulse 96 12/12/23 07:49 Resp 12 12/12/23 07:49 BP 96/60 12/12/23 07:49 Pulse Ox 99 12/12/23 07:49 O2 Del Method Nasal Cannula 12/12/23 07:49 O2 Flow Rate 3 12/12/23 02:34 12/11/23 12/12/23 12/12/23 22:59 06:59 14:59 Intake Total 1310 / 1600 550 / 2150 50 / 50 Output Total 1090 / 1690 600 / 2290 Balance 220 / -90 -50 / -140 50 / 50 Weight last 48 hrs Weight 213 lb 4.8 oz Weight 213 lb 3.2 oz Physical Exam 2 Narrative: GENERAL: The patient is alert and oriented times three. Not in any acute distress. HEENT: No significant pallor, icterus or lymphadenopathy.Oral cavity: There are no mucous membrane lesions. NECK: Trachea appears to be central. No masses noted. No JVD or thyromegaly appreciated. RESPIRATORY: Chest is symmetrical. No intercostals muscle retraction or any accessory muscle activation. There is no chest wall tenderness. Breath sounds are heard bilaterally. No rales or rhonchi heard. No evidence of any consolidation. BREASTS: Deferred. HEART: The heart sounds are normal. No S3 or S4. Short systolic murmur in the lower sternal border .No pericardial rub ABDOMEN: No vessel pulsations or distention. No tenderness. No organomegaly appreciated. Bowel sounds are normally heard. : Deferred. RECTAL: Deferred. LYMPHATIC: No lymphadenopathy noted in the neck. EXTREMITIES: Open debrided wound on the lower anterolateral aspect of the right leg. Some healing ulcers on the left leg. 1-2+ edema of both lower extremities. MUSCULOSKELETAL: No acute joint deformities or swelling SKIN: Some features of chronic venous stasis. No cyanosis. NEUROPSYCHIATRIC: The patient is alert and oriented x3. Appears to be in a good mood. No tremors or rigidity noted. Data 12/12/23 03:27 12/12/23 03:27 Other Labs: Laboratory Last Values WBC 23.35 10^3/uL (3.29-11.43) H 12/12/23 03:27 RBC 3.25 10^6/uL (3.85-5.65) L 12/12/23 03:27 Hgb 9.50 g/dL (11.27-16.99) L 12/12/23 03:27 Hct 31.3 % (37-53) L 12/12/23 03:27 MCV 96.3 fl (82-101) 12/12/23 03:27 MCH 29.2 pg (27-33) 12/12/23 03: MCHC 30.4 g/dL (30-55) 12/12/23 03: RDW 18.3 % (12.1-15.1) H 12/12/23 03:27 Plt Count 190 10^3/cmm (157-399) 12/12/23 03:27 MPV 12.0 fL (7.4-10.4) H 12/12/23 03:27 Neut % (Auto) 95.3 % 12/12/23 03:27 Lymph % (Auto) 2.0 % 12/12/23 03:27 [place] % (Auto) 1.7 % 12/12/23 03:27 Eos % (Auto) 0.0 % 12/12/23 03:27 Baso % (Auto) 0.1 % 12/12/23 03:27 Neut # (Auto) 22.26 10^3/uL (1.8-7.7) H 12/12/23 03:27 Lymph # (Auto) 0.5 10^3/uL (0.8-4.8) L 12/12/23 03:27 [place] # (Auto) 0.4 10^3/uL (0.2-0.9) 12/12/23 03:27 Eos # (Auto) 0.0 10^3/uL (0.0-0.8) 12/12/23 03:27 Baso # (Auto) 0.0 10^3/uL (0.0-0.1) 12/12/23 03:27 Nucleated RBC % (auto) 0 % 12/12/23 03:27 Nucleated RBCs # 0.0 /100WBC 02/23/24 03:27 ESR 16 mm/hr (0-10) H 12/08/23 23:11 PT 16.90 SECONDS (12.1-14.9) H 12/08/23 23:11 INR 1.33 (0.8-1.2) H 12/08/23 23:11 Sodium 133 mmol/L (136-145) L 12/12/23 03:27 Potassium 3.7 mmol/L (3.5-5.1) 12/12/23 03:27 Chloride 89 mmol/L (98-107) L 12/12/23 03:27 Carbon Dioxide 31 mmol/L (22-29) H 12/12/23 03:27 Anion Gap 16.7 (5-19) 12/12/23 03:27 BUN 35 mg/dL (8-23) H 12/12/23 03:27 Creatinine 1.5 mg/dL (0.7-1.2) H 12/12/23 03:27 GFR Calculation 46.7 mL/min (90-130) L 12/12/23 03:27 Glucose 123 mg/dL (65-115) H 12/12/23 03:27 POC Glucose 105 mg/dL (70-110) 12/09/23 11:10 Calculated Osmolality 285 mOsm/kg (285-295) 12/12/23 03:27 Lactic Acid 1.3 mmol/L (0.5-2.2) 12/08/23 23:11 Calcium 8.2 mg/dL (8.5-10.5) L 12/12/23 03:27 Phosphorus 4.3 mg/dL (2.5-4.5) 12/12/23 03:27 Magnesium 2.7 mg/dL (1.7-2.3) H 12/12/23 03:27 Iron 72 ug/dL (59-158) 12/12/23 03:27 TIBC 189 mcg/dl 12/12/23 03:27 % Saturation 38.0 % (20-50) 12/12/23 03:27 Unsat Iron Binding 117 ug/dL (112-347) 12/12/23 03:27 Ferritin 484 ng/mL (30-400) H 12/12/23 03:27 Total Bilirubin 0.5 mg/dL (0.15-1.2) 12/12/23 03:27 AST 7 U/L (0-40) 12/12/23 03:27 ALT < 5 U/L (0-41) 12/12/23 03:27 Alkaline Phosphatase 92 U/L (40-130) 12/12/23 03:27 Troponin T 5th Gen ng/L 739 ng/L (0-15) H* 12/10/23 20:31 Troponin T Baseline 984 ng/L (0-15) H* 12/09/23 08:36 Troponin T 120 Minute 986.0 ng/L (0-15) H 12/09/23 10:44 Delta Troponin T 2.0 ABS# (0-10) 12/09/23 10:44 Troponin T Hi Sens 6Hr 1025 ng/L (0-15) H 12/09/23 14:24 Troponin T Hi Sens 6Hr Delta 41 ng/L (0-12) H* 12/09/23 14:24 C-Reactive Protein 29.9 mg/L (0.0-4.9) H 12/08/23 23:11 NT-Pro-B Natriuret Pep 4364 pg/mL (0-125) H 12/11/23 03:15 Total Protein 5.7 g/dL (6.6-8.7) L 12/12/23 03:27 Albumin 3.0 g/dL (3.5-5.2) L 12/12/23 03:27 Globulin 2.7 g/dL (1.3-4.6) 12/12/23 03:27 Vitamin B12 711 pg/mL (232-1245) 12/12/23 03:27 Folate 5.2 ng/mL (4.5-32.2) 12/12/23 03:27 Procalcitonin 0.22 ng/mL (0-0.5) 12/08/23 23:11 TSH 2.64 uIU/mL (0.27-4.20) 12/09/23 08:36 Free T4 1.11 ng/dL (0.82-1.77) 12/09/23 08:36 Urine Color Yellow (Yellow) 12/08/23 23:17 Urine Appearance Cloudy (CLEAR) A 12/08/23 23:17 Urine pH 6.5 (5-7) 12/08/23 23:17 Ur Specific [place] 1.005 (1.005-1.030) 12/08/23 23:17 Urine Protein Trace (Negative) 12/08/23 23:17 Urine Glucose (UA) Trace (Normal) H 12/08/23 23:17 Urine Ketones Negative (Negative) 12/08/23 23:17 Urine Blood 3+ (Negative) H 12/08/23 23:17 Urine Nitrate Negative (Negative) 12/08/23 23:17 Urine Bilirubin Neg (Negative) 12/08/23 23:17 Urine Urobilinogen Neg mg/dL (Negative) 12/08/23 23:17 Ur Leukocyte Esterase 2+ (Negative) H 12/08/23 23:17 Urine RBC 15-25 /hpf (0-2) H 12/08/23 23:17 Urine WBC 25-40 /hpf (0-5) H 12/08/23 23:17 Ur Squamous Epith Cells None /hpf (0-5) 12/08/23 23:17 Amorphous Sediment Not Reportable 12/08/23 23:17 Urine Bacteria 3+ /hpf (NONE) H 12/08/23 23:17 Urine Mucus 2+ /hpf 12/08/23 23:17 Blood Type AB Negative 12/11/23 11:20 Rho(D) Type Negative 12/11/23 11:20 Antibody Screen Negative 12/11/23 11:20 Crossmatch See Detail 12/11/23 11:20 Micro: Microbiology 12/08/23 23:17 Urine Culture - Preliminary Urine,Clean Catch Escherichia coli Strep species, gamma-hemolytic A&P Assessment and plan (1) Hypotension: The blood pressure seems to be returning to the normal range. The rhythm change could be the contributing factor. Qualifiers: Hypotension type: other hypotension type Qualified Code(s): I95.89 - Other hypotension (2) Atrial fibrillation with RVR: The heart rate seems to be getting under control. He seems to have frequent nonsustained ventricular tachycardia. Currently he is on amiodarone and metoprolol (3) Elevated troponin: If the hemoglobin continues to remain stable, we may start him on Plavix (4) CHF (congestive heart failure), NYHA class III: Patient seems to have significant drop in the LV ejection fraction from 27th of last month. The current ejection fraction is around 40 to 45% by echocardiogram. He has multiple wall motion normalities. He requires a cardiac catheterization to further evaluate his coronary status and decide on further management. Qualifiers: Congestive heart failure chronicity: chronic Congestive heart failure type: systolic Qualified Code(s): I50.22 - Chronic systolic (congestive) heart failure (5) NSVT (nonsustained ventricular tachycardia): Continue the IV amiodarone and a low-dose of beta-garrick. The heart rhythm need to be closely monitored on telemetry. (6) Gastric ulcer: Continue the current management. No evidence of any active bleed Qualifiers: Gastric ulcer chronicity: unspecified ulcer chronicity Gastric ulcer complication status: without hemorrhage or perforation Qualified Code(s): K25.9 - Gastric ulcer, unspecified as acute or chronic, without hemorrhage or perforation (7) ALTA (acute kidney injury): The electrolytes and the renal function needs to be closely monitored. Part of it could be related to the hypotension (8) Anemia associated with acute blood loss: Since the hemoglobin is holding up after the transfusion, there seems to be no evidence of any active bleed. Plan Other problems are The blood culture grew vancomycin-resistant enterococci, may need a AREN to further evaluate Leukocytosis-infection/prednisone induced Hyponatremia Repeat BMP in the morning change of antibiotic today. Will watch him closely over the weekend Possible angiogram on Friday Discussed with Attestations 2 Medical Necessity Statement*: Patient requires continued hospital stay for close monitoring and further management Coding Level of Care Code 75719 Diagnoses Other specified hypotension I95.89 Hypotension type: other hypotension type Atrial fibrillation with RVR I48.91 Elevated troponin R79.89 Chronic systolic congestive heart failure, NYHA class 3 I50.22 Congestive heart failure chronicity: chronic Congestive heart failure type: systolic NSVT (nonsustained ventricular tachycardia) I47.29 Gastric ulcer without hemorrhage or perforation, unspecified chronicity K25.9 Gastric ulcer chronicity: unspecified ulcer chronicity Gastric ulcer complication status: without hemorrhage or perforation ALTA (acute kidney injury) N17.9 Anemia associated with acute blood loss D62
[2023-12-12] MEDS: ipratropium 0.5 mg/2.5 mL Neb INHALATION ×2 (08:27→13:56)
[2023-12-12] MEDS: budesonide 0.5 mg/2 mL Neb INHALATION (08:27)
[2023-12-12] MEDS: levalbuterol 0.63 mg/3 mL Neb 0.630000000000000004 MG INHALATION ×2 (08:27→13:56)
[2023-12-12] MEDS: albumin 25 G/100 ML BAG 60 G IV (08:41)
[2023-12-12] MEDS: azithromycin 250 mg Tablet 500 MG PO (08:43)
[2023-12-12] MEDS: methylPREDNISolone sod succ 125 mg/2 mL INJ 80 MG IVP (08:43)
[2023-12-12] MEDS: aspirin 81 mg Chew Tablet PO (08:44)
[2023-12-12] MEDS: FUROsemide 10 mg/mL SDV 4mL 40 MG IVP (08:44)
[2023-12-12] MEDS: nystatin 100,000 unit/mL UDC 5 mL 100000 UNIT PO ×4 (09:00→20:37)
[2023-12-12] MEDS: methylPREDNISolone sod succ 125 mg/2 mL INJ 60 MG IVP (09:01)
--- NOTE | 2023-12-12 09:01 | PC.SOCIAL ---
IMM Update pg 2 of IMM Updated and reviewed w/ patient. Copy provided and copy dated, initialed and placed in chart.
[2023-12-12 09:17] LABS: Chol HDL Ratio 3.07 mg/dL (1.0-5.00); Cholesterol 129 mg/dL (0-200); HDL Cholesterol 42 mg/dL (60-100); LDL Cholesterol Calculated 67 mg/dL (50-129); Triglycerides 102 mg/dL (0-150)
[2023-12-12] MEDS: lidocaine 5% Patch 1 PATCH TOPICAL (09:29)
[2023-12-12] MEDS: metoprolol tartrate 25 mg Tablet PO ×2 (09:30→20:36)
[2023-12-12] MEDS: enoxaparin 40 mg/0.4 mL Syringe SUBCUT (12:02)
[2023-12-12] MEDS: ALPRAZolam 0.5 mg Tablet PO (12:02)
[2023-12-12] MEDS: cefTRIAXone 2,000 MG in sodium chloride 0.9% (plus) 50 ML 100 MG IV (13:13)
--- NOTE | 2023-12-12 14:04 | ECG_ITS ---
[facility] Test Date: 2023-12-12 Pat Name: Peter Herrmann Department: Room: 104 Gender: Male Power Regulator: : 1955 Requested By: Ayaka Cox Order Number: [id number] Lorri MD: Juvenal Lau M.D. Measurements Intervals [place] Rate: 64 P: 54 MI: 174 QRS: 27 QRSD: 108 T: -61 QT: 431 QTc: 447 Interpretive Statements SINUS RHYTHM WITH OCCASIONAL VENTRICULAR PREMATURE COMPLEXES NONSPECIFIC ST & T-WAVE ABNORMALITY Compared to ECG 12/09/2023 08:24:15 Atrial fibrillation no longer present Aberrant conduction of supraventricular beat(s) no longer present T-wave abnormality still present Electronically Signed On 12-12-2023 18:59:00 GIS ENGINEER by Juvenal Lau M.D. [id number]
--- NOTE | 2023-12-12 14:28 | PC.NURSE ---
Patient converted back into sinus rhythem at 0930 on 12/12/23. Doctor notified. EKG taken.
[2023-12-12] MEDS: linezolid premix 600 MG/300 ML PREMIX 300 MG IV (15:12)
--- NOTE | 2023-12-12 17:04 | ECG_ITS ---
[facility] Test Date: 2023-12-12 Pat Name: Peter Herrmann Department: Room: 104 Gender: Male Clinical Psychologist Private Practice: : 1955 Requested By: Len Merida Order Number: [id number] Lorri MD: Juvenal Lau M.D. Measurements Intervals [place] Rate: 63 P: 41 IN: 154 QRS: 34 QRSD: 109 T: -30 QT: 431 QTc: 444 Interpretive Statements SINUS RHYTHM NONSPECIFIC ST & T-WAVE ABNORMALITY Compared to ECG 12/12/2023 14:04:01 Ventricular premature complex(es) no longer present T-wave abnormality still present Electronically Signed On 12-12-2023 18:58:48 DIGITAL DIRECTOR by Juvenal Lau M.D. [email or web address] [email or web address]/store/[id number]
--- NOTE | 2023-12-12 18:17 | PC.NURSE ---
Patient's wound dressing changed at 1800. 2 abd pads used. 1 set of gauze sponges. One sterile water irrigation container.
--- NOTE | 2023-12-12 21:48 | P.PN_ITS ---
Subjective 2 Subjective: The patient is feeling better. Telemetry shows that he went back in normal sinus rhythm as of 9:30am this morning 12/12/2023. His TTE done on 12/11 shows an EF of 40-45% w/ moderate diffuse hypokinesis of the septal and inferior wall segments and mild biatrial enlargement. He continues to deny fever, chills, chest pain, palpitations, dizziness, lightheadedness, abdominal pain, nausea, vomiting. He has not had a BM in 3 days; although, he is passing flatus. He denies dysuria, hematuria, increased urinary urgency or frequency, but his urine is quite brown in color, he states that this has been the color of his urine since admission. He tells me that he has been feeling anxious since admission. He does not have a hx of anxiety, but he has been feeling anxious. We discussed his ALTA, and cardiology is concerns about his NSTEMI, and the need to do an angiogram. We discussed the implications of doing an angiogram in the setting of an ALTA, namely, that it could worsen his renal function to the point that he could need dialysis. I spoke with the Certified Histologic Technician on-call, who will plan to do an Angiogram on Friday 12/15. Per discussion w/ Cardiology, start full dose Heparin and hold on starting Plavix. His blood cultures were positive in 1 out of 4 sets for vancomycin resistant Enterococcus faecium. His UA is growing E. coli resistant to Amoxicillin/Augmentin and Unspeciated Gamma hemolytic strep. I spoke with ID, who recommended repeat BCx, Removing the PICC line and placing a peripheral line. Starting linezolid and ceftriaxone. Medications: Reviewed: Yes Medication Review Details: Current Medications Al Hydrox/Mg Hydrox/Simethicone (Ggpe-Zuc-Qqmcpqhom-Chapo 30 Ml Udc) 15 ml PO Q4H PRN PRN Reason: INDIGESTION Aspirin (Aspirin 81 Mg Chew Tablet) 81 mg PO DAILY [facility] Last Admin: 12/11/23 12:50 Dose: 81 mg Azithromycin (Azithromycin 250 Mg Tablet) 500 mg PO DAILY [facility]; Protocol Stop: 12/15/23 09:01 Last Admin: 12/11/23 12:50 Dose: 500 mg Budesonide (Budesonide 0.5 Mg/2 Ml Neb) 0.5 mg INHALATION BID.RESPIRATORY [facility] Last Admin: 12/11/23 20:06 Dose: Not Given Enoxaparin Sodium (Enoxaparin 40 Mg/0.4 Ml Syringe) 40 mg SUBCUT Q24H [facility] Last Admin: 12/11/23 12:50 Dose: 40 mg Amiodarone HCl/Dextrose (Nexterone) 360 mg in 200 mls @ 0 mls/hr IV .Q0M [facility]; Protocol Last Admin: 12/12/23 05:40 Dose: 0.5 mg/min, 16.67 mls/hr Vancomycin/PEG/NADA/Lysine/Water (Vancocin) 1,500 mg in 300 mls @ 200 mls/hr IV Q24H [facility] Last Infusion: 12/11/23 23:57 Dose: Infused Meropenem 1,000 mg/ Sodium (Chloride) 50 mls @ 100 mls/hr IV Q8H [facility]; Protocol Last Infusion: 12/12/23 08:11 Dose: Infused Albumin Human (Albumin) 25 g in 100 mls @ 60 mls/hr IV ONCE ONE Stop: 12/12/23 09:53 Ipratropium [place] (Ipratropium 0.5 Mg/2.5 Ml Neb) 0.5 mg INHALATION Q6H [facility] Last Admin: 12/12/23 02:34 Dose: Not Given Levalbuterol HCl (Levalbuterol 0.63 Mg/3 Ml Neb) 0.63 mg INHALATION Q6H.RESP [facility] Last Admin: 12/12/23 02:35 Dose: Not Given Lidocaine (Lidocaine 5% Patch) 1 patch TOPICAL [id number] [facility] Last Admin: 12/11/23 20:36 Dose: Not Given Methylprednisolone Sodium Succinate (Methylprednisolone Sod Succ 125 Mg/2 Ml Inj) 80 mg IVP ONCE [facility] Last Admin: 12/11/23 10:13 Dose: 80 mg Methylprednisolone Sodium Succinate (Methylprednisolone Sod Succ 125 Mg/2 Ml Inj) 60 mg IVP DAILY [facility] Stop: 12/13/23 09:01 Last Admin: 12/11/23 10:17 Dose: 60 mg Metoprolol Tartrate (Metoprolol Tartrate 25 Mg Tablet) 25 mg PO BID@0900,2100 [facility] Last Admin: 12/11/23 20:59 Dose: 25 mg Midodrine (Midodrine 5 Mg Tablet) 5 mg PO Q8H [facility] Last Admin: 12/12/23 02:12 Dose: 5 mg Morphine Sulfate (Morphine 4 Mg/Ml Sdv 1 Ml) 2 mg IVP Q4H PRN PRN Reason: SEVERE PAIN Last Admin: 12/12/23 03:45 Dose: 2 mg Naloxone HCl (Naloxone 0.4 Mg/Ml Sdv) 0.1 mg IVP Q2M PRN PRN Reason: OPIATERV Nystatin (Nystatin 100,000 Unit/Ml Udc 5 Ml) 100,000 unit PO QID [facility] Last Admin: 12/11/23 21:00 Dose: 100,000 unit Ondansetron HCl (Ondansetron 2 Mg/Ml Sdv 2 Ml) 4 mg IVP Q8H PRN PRN Reason: vomiting, or N/V if npo Pantoprazole Sodium (Pantoprazole Dr 40 Mg Tablet) 40 mg PO BID [facility] Pantoprazole Sodium (Pantoprazole 40 Mg Sdv) 40 mg IVP Q12H [facility] Last Admin: 12/12/23 05:39 Dose: 40 mg Saliva Substitute (Saliva Stimulant [place] 30 Ml Btl) 1 spray MUCOUS MEM Q2H PRN PRN Reason: DRYNESS Sodium Chloride (Sodium Chloride 0.9% 100 Ml Bag) 50 ml IV PRN PRN PRN Reason: Blood transfusion prime and flush Stop: 12/12/23 09:54 Last Admin: 12/11/23 12:56 Dose: 50 ml Sucralfate (Sucralfate 1 Gm Tablet) 1 gm PO AC&BEDTIME [facility] Last Admin: 12/12/23 06:40 Dose: 1 gm Trazodone HCl (Trazodone 50 Mg Tablet) 25 mg PO BEDTIME [facility] Last Admin: 12/11/23 20:59 Dose: 25 mg Vitals/I&O/Wt Last Vital Signs Temp 97.8 F 12/12/23 20:00 Pulse 54 L 12/12/23 20:37 Resp 16 12/12/23 20:37 BP 133/78 12/12/23 20:00 Pulse Ox 97 12/12/23 20:37 O2 Del Method Nasal Cannula 12/12/23 20:37 O2 Flow Rate 2 12/12/23 20:37 12/12/23 12/12/23 12/12/23 06:59 14:59 22:59 Intake Total 550 / 2150 279.183 / 056.839 3113.969 / 1601.152 Output Total 600 / 2290 690 / 690 500 / 1190 Balance -50 / -140 -410.817 / -410.817 821.969 / 411.152 Weight last 48 hrs Weight 96.751 kg Weight 96.706 kg Physical Exam 2 Const: GENERAL APPEARANCE: cooperative, comfortable and well kempt N UTRITIONAL APPEARANCE: obese ORIENTATION/CONSCIOUSNESS: Yes awake, Yes oriented to person, Yes oriented to place and Yes oriented to time HENMT: COMMON NORMALS: normocephalic, atraumatic and external ears normal H EAD & SCALP: normocephalic and atraumatic EXTERNAL EAR: Yes external ears normal MOUTH: Normal oral and palatal mucosa present THROAT: posterior oropharynx normal Eye: COMMON NORMALS: Equal, round and reactive pupils present PUPIL: Yes Equal, round and reactive pupils present EOM: No EOM abnormal Neck/C-Spine: COMMON NORMALS: Thyroid normal GENERAL: Yes normal visual inspection, Yes trachea midline and Yes anterior neck swelling THYROID: T hyroid normal CAROTIDS: No bruit CERVICAL SPINE: Yes cervical ROM normal Lymph: LYMPHATIC: No no lymphedema noted and lymphadenopathy Chest: CHEST: Yes abnormal inspection of the chest, Yes Symmetrical chest wall rise and Yes laceration Resp: OTHER: B/l expiratory wheezes w/ barely audible breath sounds in the b/l lower lung bases. Cardio: OTHER: irregular rate and rhythm. It is difficult to appreciate any murmurs, rubs, or gallops, given the noise in the room. GI: OTHER: BS+, nontender, nondistended, no guarding, no rigidity, no rebound tenderness, no organomegaly. Extremity: GENERAL: No clubbing, No cyanosis and No edema Neuro: SENSORIUM/ORIENTATION: Yes oriented to person, Yes oriented to place and Yes oriented to time Psych: COMMON NORMALS: speech normal APPEARANCE: Yes well kempt A TTITUDE: Yes calm and Yes engaged SPEECH: Yes normal speech MOOD & AFFECT: Yes euthymic mood Skin: COMMON NORMALS: no rashes or lesions noted GENERAL SKIN EXAM: no rashes or lesions noted Data 12/13/23 04:03 12/13/23 04:03 Micro: Microbiology 12/12/23 13:30 Blood Culture - Preliminary Blood SPECIMEN COLLECTED 12/12/23 13:26 Blood Culture - Preliminary Blood SPECIMEN COLLECTED 12/09/23 00:01 Blood Culture - Preliminary Blood Enterococcus faecium vre A&P Assessment and plan (1) Sepsis: Qualifiers: Sepsis acute organ dysfunction status: unspecified Sepsis type: sepsis due to unspecified organism Qualified Code(s): A41.9 - Sepsis, unspecified organism Plan #Questionable Syncope: Patient adamantly denies that he had an episode of syncope #New onset Afib w/ RVR: - due to hypotension, he was given Amiodarone bolus in the ED and started on Amiodarone drip. - Cardiology consulted on 12/09 On Amiodarone drip and Metoprolol tartrate - TSH wnl. - Limited ECHO on 12/11/2023 showed an EF of 40-45% w/ moderate diffuse hypokinesis of the septal and inferior wall segments and mild biatrial enlargement. #NSTEMI I - Consulted Cardiology. - Started ACS protocol based on elevated Trop T, but given concerns about the patient's hx of a recent GI bleed, will d/c full dose lovenox at this time and monitor Trop T #NSVT #HTN: No acute issues at this time. #Acute on chronic HFpEF: TTE on 11/15 shows EF of 72% w/no wall motion abnormalities, and mild tricuspid regurg. #Vol overload - s/p Lasix 20mg IVP x 1 on admission. Strict Is & Os. - s/p Lasix, albumin, acetazolamide, and metolazone on 12/10. Held Lasix on 12/11. - Give another dose of Lasix 40mg IV and albumin x 1 on 12/12. - I have encouraged the patient to be vigilant about his po intake. #Sepsis: #Leukocytosis - 1/ BCx ordered in the ED on 12/08 showed VRE faecium - BCx from PICC line done on 12/09 is negative. I have had nurse d/c the PICC line on 12/12. - Repeat BCx on 12/12. Started Linezolid and Ceftriaxone on 12/12 w/ plan to repeat BCx on 12/14. #Amoxicillin resistant UTI and Gamma hemolytic Strep: - s/p Vanc/Zosyn in the ED. Ceftriaxone started on admission. Added Vanc on 12/09/2023. D/c'ed Ceftriaxone on 12/10 and started Meropenem. D/c'ed Meropenem on 12/12 and started Ceftriaxone. #Diarrhea: He only had one episode in the assisted. Less likelihood that he had C. diff. #Hyponatremia: Likely hypervolemic at this time. Improving. Monitor renal function. # Acute COPD exacerbation: On duonebs. Added Solumedrol on 12/09. Started Azithromycin po on 12/11. #Chronic hypoxic respiratory failure on 2-4L NC O2 w/ exertion and 2L NC O2 while at rest or at night. #Anemia: likely of chronic disease. Follow-up iron studies. #Gastric ulcers: noted on 11/12/2023 EGD. Continue PPI BID & Sucralfate #R. lower extremity wound - due to R. LE Necrotizing fascitis due to MSSA, Grp A strep, & Enterobacter cloacae - completed IV Cefazolin on 12/03/2023 - Plan was o f/u w/ Gen surg this week to evaluate for skin grafting. - Consulted Surgeon Dr. Ortega on 12/09, who provided wound care recs. Will courtesy notify Dr. Cummings of his hospitalization. #Acute gout: Not an acute issue at this time. #Constipation: Lactulose 30gm x 1 on 12/11. #Anxiety: Started Xanax 0.5mg TID prn. He is worried about taking something that can cause addiction, but I have told him that he will not be discharged on this medication. DVT ppx: Lovenox subq per discussion w/ Certified Histologic Technician Attestations 2 Medical Necessity Statement*: Patient needs to remain hospitalized for his multiple medical issues including Vancomycin resistant Enterococcus Faecium bacteremia. Coding Level of Care Code Acute Code for [facility] Fwd Diagnoses Sepsis, due to unspecified organism, unspecified whether acute organ dysfunction present A41.9 Sepsis acute organ dysfunction status: unspecified Sepsis type: sepsis due to unspecified organism
[2023-12-12 22:05] LABS: Vancomycin Trough 20.6 ug/mL (10-15)
[2023-12-12] MEDS: trazodone 50 mg Tablet 25 MG PO (23:24)
[2023-12-13] VITALS (15 sets, daily range): BP systolic 92–140; BP diastolic 58–79; PULSE 49–61; RESP 13–21; TEMP 36.3–36.8; O2SAT 92–100
[2023-12-13 00:48] LABS: C.Diff PCR (Lab) NEGATIVE (Negative)
[2023-12-13] MEDS: linezolid premix 600 MG/300 ML PREMIX 300 MG IV ×2 (02:31→14:50)
[2023-12-13] MEDS: midodrine 5 mg TABLET PO ×3 (02:31→16:28)
[2023-12-13 04:13] LABS: Hematocrit 27.8 % (37-53); Lymphocytes # 0.6 10^3/uL (0.8-4.8); Lymphocytes % 2.4 %; Mean Corpuscular HGB Conc 31.3 g/dL (30-55); Mean Corpuscular Hemoglobin 29.6 pg (27-33); Mean Corpuscular Volume 94.6 fl (82-101); Mean Platelet Volume 11.2 fL (7.4-10.4); Neutrophils # 21.87 10^3/uL (1.8-7.7); Neutrophils % 92.9 %; Nucleated Red Blood Cells % 0 %; Platelet Count 164 10^3/cmm (157-399); Red Blood Count 2.94 10^6/uL (3.85-5.65); Red Cell Distribution Width 17.8 % (12.1-15.1); White Blood Count 23.57 10^3/uL (3.29-11.43)
[2023-12-13 04:39] LABS: Magnesium 2.5 mg/dL (1.7-2.3); Phosphorus 3.7 mg/dL (2.5-4.5)
[2023-12-13 04:45] LABS: Alanine Aminotransferase < 5 U/L (0-41); Albumin Level 3.4 g/dL (3.5-5.2); Alkaline Phosphatase 80 U/L (40-130); Anion Gap 15.4 (5-19); Aspartate Amino Transferase 6 U/L (0-40); Blood Urea Nitrogen 40 mg/dL (8-23); Calcium 8.2 mg/dL (8.5-10.5); Carbon Dioxide 33 mmol/L (22-29); Chloride 89 mmol/L (98-107); Creatinine Clr Calc Pharmacy 49.6555; Globulin 1.6 g/dL (1.3-4.6); Glomerular Filtration Rate 43.3 mL/min (90-130); Glucose 129 mg/dL (65-115); Osmolality Calculated 289 mOsm/kg (285-295); Potassium 3.4 mmol/L (3.5-5.1); Sodium 134 mmol/L (136-145); Total Bilirubin 0.3 mg/dL (0.15-1.2)
[2023-12-13] MEDS: pantoprazole 40 mg SDV IVP ×2 (05:05→16:28)
[2023-12-13] MEDS: aspirin 81 mg Chew Tablet PO (07:56)
[2023-12-13] MEDS: azithromycin 250 mg Tablet 500 MG PO (07:56)
[2023-12-13] MEDS: methylPREDNISolone sod succ 125 mg/2 mL INJ 60 MG IVP (07:56)
[2023-12-13] MEDS: lidocaine 5% Patch 1 PATCH TOPICAL (07:56)
[2023-12-13] MEDS: sucralfate 1 gm Tablet PO ×4 (07:56→21:44)
[2023-12-13] MEDS: nystatin 100,000 unit/mL UDC 5 mL 100000 UNIT PO ×4 (07:57→21:46)
[2023-12-13] MEDS: pantoprazole DR 40 mg Tablet PO (08:16)
[2023-12-13] MEDS: ALPRAZolam 0.5 mg Tablet PO ×3 (08:16→21:45)
--- NOTE | 2023-12-13 08:38 | PM.PN ---
Subjective Subjective: Serendipitously, I did not start the patient on full dose Lovenox as agreed with , patient had 3 BMs overnight that were bloody. This morning, the patient's PICC line was not removed per orders on 12/12/2023. I had the nurse d/c the PICC line this AM. Per his nurse this AM, she is concerned that the patient has developed a colovescial fistula b/c when she took care of the patient during his 11/21 to 11/27 hospitalization, he had brown chunks in his urine. Per nurse, the brown chunks still remain during this hospitalization, and it smells like diarrhea. ppeared to be like diarrhea. Metoprolol tartrate decreased by Cardiology to 12.5mg BID this AM and his Amiodarone drip was d/c'ed & he was switched to amiodarone po BID. Based on discussion with facility examiner, heparin drip was initiated during the day, patient started to have rebekah bloody stools, so heparin drip was discontinued. The patient has no complaints this AM. He says that the Xanax prn administered to him for Anxiety is working well. Medications: Reviewed: Yes Medication Review Details: Current Medications Al Hydrox/Mg Hydrox/Simethicone (Hlmh-Qxz-Ijuuyzcku-Chapo 30 Ml Udc) 15 ml PO Q4H PRN PRN Reason: INDIGESTION Aspirin (Aspirin 81 Mg Chew Tablet) 81 mg PO DAILY [facility] [place] Last Admin: 12/11/23 12:50 Dose: 81 mg Azithromycin (Azithromycin 250 Mg Tablet) 500 mg PO DAILY [facility]; Protocol Stop: 12/15/23 09:01 Last Admin: 12/11/23 12:50 Dose: 500 mg Budesonide (Budesonide 0.5 Mg/2 Ml Neb) 0.5 mg INHALATION BID.RESPIRATORY [facility] Last Admin: 12/11/23 20:06 Dose: Not Given Enoxaparin Sodium (Enoxaparin 40 Mg/0.4 Ml Syringe) 40 mg SUBCUT Q24H [facility] Last Admin: 12/11/23 12:50 Dose: 40 mg Amiodarone HCl/Dextrose (Nexterone) 360 mg in 200 mls @ 0 mls/hr IV .Q0M [facility]; Protocol Last Admin: 12/12/23 05:40 Dose: 0.5 mg/min, 16.67 mls/hr Vancomycin/PEG/[place]/Lysine/Water (Vancocin) 1,500 mg in 300 mls @ 200 mls/hr IV Q24H [facility] [place] Last Infusion: 12/11/23 23:57 Dose: Infused Meropenem 1,000 mg/ Sodium (Chloride) 50 mls @ 100 mls/hr IV Q8H [facility] [place]; Protocol Last Infusion: 12/12/23 08:11 Dose: Infused Albumin Human (Albumin) 25 g in 100 mls @ 60 mls/hr IV ONCE ONE Stop: 12/12/23 09:53 Ipratropium [place] (Ipratropium 0.5 Mg/2.5 Ml Neb) 0.5 mg INHALATION Q6H [facility] [place] Last Admin: 12/12/23 02:34 Dose: Not Given Levalbuterol HCl (Levalbuterol 0.63 Mg/3 Ml Neb) 0.63 mg INHALATION Q6H.RESP [facility] [place] Last Admin: 12/12/23 02:35 Dose: Not Given Lidocaine (Lidocaine 5% Patch) 1 patch TOPICAL [id number] [facility] [place] Last Admin: 12/11/23 20:36 Dose: Not Given Methylprednisolone Sodium Succinate (Methylprednisolone Sod Succ 125 Mg/2 Ml Inj) 80 mg IVP ONCE [facility] [place] Last Admin: 12/11/23 10:13 Dose: 80 mg Methylprednisolone Sodium Succinate (Methylprednisolone Sod Succ 125 Mg/2 Ml Inj) 60 mg IVP DAILY [facility] [place] Stop: 12/13/23 09:01 Last Admin: 12/11/23 10:17 Dose: 60 mg Metoprolol Tartrate (Metoprolol Tartrate 25 Mg Tablet) 25 mg PO BID@0900,2100 [facility] [place] Last Admin: 12/11/23 20:59 Dose: 25 mg Midodrine (Midodrine 5 Mg Tablet) 5 mg PO Q8H [facility] [place] Last Admin: 12/12/23 02:12 Dose: 5 mg Morphine Sulfate (Morphine 4 Mg/Ml Sdv 1 Ml) 2 mg IVP Q4H PRN PRN Reason: SEVERE PAIN Last Admin: 12/12/23 03:45 Dose: 2 mg Naloxone HCl (Naloxone 0.4 Mg/Ml Sdv) 0.1 mg IVP Q2M PRN PRN Reason: OPIATERV Nystatin (Nystatin 100,000 Unit/Ml Udc 5 Ml) 100,000 unit PO QID [facility] [place] Last Admin: 12/11/23 21:00 Dose: 100,000 unit Ondansetron HCl (Ondansetron 2 Mg/Ml Sdv 2 Ml) 4 mg IVP Q8H PRN PRN Reason: vomiting, or N/V if npo Pantoprazole Sodium (Pantoprazole Dr 40 Mg Tablet) 40 mg PO BID [facility] [place] Pantoprazole Sodium (Pantoprazole 40 Mg Sdv) 40 mg IVP Q12H [facility] [place] Last Admin: 12/12/23 05:39 Dose: 40 mg Saliva Substitute (Saliva Stimulant [place] 30 Ml Btl) 1 spray MUCOUS MEM Q2H PRN PRN Reason: DRYNESS Sodium Chloride (Sodium Chloride 0.9% 100 Ml Bag) 50 ml IV PRN PRN PRN Reason: Blood transfusion prime and flush Stop: 12/12/23 09:54 Last Admin: 12/11/23 12:56 Dose: 50 ml Sucralfate (Sucralfate 1 Gm Tablet) 1 gm PO AC&BEDTIME [facility] [place] Last Admin: 12/12/23 06:40 Dose: 1 gm Trazodone HCl (Trazodone 50 Mg Tablet) 25 mg PO BEDTIME [facility] [place] Last Admin: 12/11/23 20:59 Dose: 25 mg Vitals/I&O/Wt Last Vital Signs Temp 97.5 F L 12/13/23 04:00 Pulse 58 L 12/13/23 07:17 Resp 21 H 12/13/23 07:17 BP 136/75 12/13/23 07:17 Pulse Ox 92 12/13/23 07:17 O2 Del Method Nasal Cannula 12/13/23 07:17 O2 Flow Rate 2 12/13/23 02:44 12/12/23 12/13/23 12/13/23 22:59 06:59 14:59 Intake Total 1321.969 / 1601.152 800 / 2401.152 Output Total 500 / 1190 600 / 1790 Balance 821.969 / 411.152 200 / 611.152 Weight last 48 hrs Weight 100.924 kg Weight 96.751 kg Physical Exam Const: GENERAL APPEARANCE: cooperative, comfortable and well kempt NUTRITIONAL APPEARANCE: obese ORIENTATION/CONSCIOUSNESS: Yes awake, Yes oriented to person, Yes oriented to place and Yes oriented to time HENMT: COMMON NORMALS: normocephalic, atraumatic and external ears normal HEAD & SCALP: normocephalic and atraumatic EXTERNAL EAR: Yes external ears normal MOUTH: Normal oral and palatal mucosa present THROAT: posterior oropharynx normal Eye: COMMON NORMALS: Equal, round and reactive pupils present PUPIL: Yes Equal, round and reactive pupils present EOM: No EOM abnormal Neck/C-Spine: COMMON NORMALS: Thyroid normal GENERAL: Yes normal visual inspection, Yes trachea midline and Yes anterior neck swelling THYROID: Thyroid normal CAROTIDS: No bruit CERVICAL SPINE: Yes cervical ROM normal Lymph: LYMPHATIC: No no lymphedema noted and lymphadenopathy Chest: CHEST: Yes abnormal inspection of the chest, Yes Symmetrical chest wall rise and Yes laceration Resp: OTHER: B/l expiratory wheezes w/ barely audible breath sounds in the b/l lower lung bases. Cardio: OTHER: irregular rate and rhythm. It is difficult to appreciate any murmurs, rubs, or gallops, given the noise in the room. GI: OTHER: BS+, nontender, nondistended, no guarding, no rigidity, no rebound tenderness, no organomegaly. Extremity: GENERAL: No clubbing, No cyanosis and No edema Neuro: SENSORIUM/ORIENTATION: Yes oriented to person, Yes oriented to place and Yes oriented to time Psych: COMMON NORMALS: speech normal APPEARANCE: Yes well kempt ATTITUDE: Yes calm and Yes engaged SPEECH: Yes normal speech MOOD & AFFECT: Yes euthymic mood Skin: COMMON NORMALS: no rashes or lesions noted GENERAL SKIN EXAM: no rashes or lesions noted Data 12/13/23 04:03 12/13/23 04:03 Micro: Microbiology 12/12/23 23:25 Occult Blood (FIT) - Final Stool - Stool Aspirate 12/12/23 13:30 Blood Culture - Preliminary Blood SPECIMEN COLLECTED 12/12/23 13:26 Blood Culture - Preliminary Blood SPECIMEN COLLECTED 12/09/23 00:01 Blood Culture - Preliminary Blood Enterococcus faecium vre A&P Assessment and plan (1) Sepsis: Qualifiers: Sepsis acute organ dysfunction status: unspecified Sepsis type: sepsis due to unspecified organism Qualified Code(s): A41.9 - Sepsis, unspecified organism Plan #Questionable Syncope: Patient adamantly denies that he had an episode of syncope #Hematochezia - Bloody BM noted on 12/12 & 12/13. Will D/c Heparin drip and consult Gen Surg in the AM of 12/14/2023 #Anemia: likely of chronic disease. Iron sat of 38% & Ferritin of 484 on 12/12/2023. #Gastric ulcers: - noted on 11/12/2023 EGD. Continue PPI BID & Sucralfate #New onset Afib w/ RVR: - due to hypotension, he was given Amiodarone bolus in the ED and started on Amiodarone drip. - Cardiology consulted on 12/09. On Amiodarone drip and Metoprolol tartrate - TSH wnl. - Limited ECHO on 12/11/2023 showed an EF of 40-45% w/ moderate diffuse hypokinesis of the septal and inferior wall segments and mild biatrial enlargement. #NSTEMI I - Consulted Cardiology. - Started ACS protocol based on elevated Trop T, but given concerns about the patient's hx of a recent GI bleed, d/c'ed full dose lovenox. - Will continued to hold initiation of full dose Lovenox. Will also hold aspirin. #NSVT #HTN: No acute issues at this time. #Acute on chronic HFrEF: - TTE on 11/15 shows EF of 72% w/no wall motion abnormalities, and mild tricuspid regurg. - Limited ECHO on 12/11/2023 showed an EF of 40-45% w/ moderate diffuse hypokinesis of the septal and inferior wall segments and mild biatrial enlargement. - Cardiology following. #Vol overload to the point that his skin was weeping all over. - s/p Lasix 20mg IVP x 1 on admission. Strict Is & Os. - s/p Lasix, albumin, acetazolamide, and metolazone on 12/10. Held Lasix on 12/11. - Give another dose of Lasix 40mg IV and albumin x 1 on 12/12. - I have encouraged the patient to be vigilant about his po intake. #Sepsis #Leukocytosis #VRE faecium Bacteremia: Source is possible colovesical fistula - 10/23 BCx ordered in the ED on 12/08 showed VRE faecium - BCx from PICC line done on 12/09 is negative. - Based on discussion with ID on 12/12/2023, I d/c'ed the PICC line on 12/12, repeated BCx on 12/12, and started Linezolid and Ceftriaxone on 12/12 w/ plan to repeat BCx on 12/14. - Will order CT abd/pelvis w/o IV contrast but with oral contrast to r/o colovesical fistula. #Amoxicillin resistant UTI and Gamma hemolytic Strep: - Possibly due to - s/p Vanc/Zosyn in the ED. Ceftriaxone started on admission. Added Vanc on 12/09/2023. D/c'ed Ceftriaxone on 12/10 and started Meropenem. D/c'ed Meropenem on 12/12 and started Ceftriaxone. #Diarrhea: [facility] only [facility] episode [facility] the prison. Less likelihood that he had C. diff. #ALTA: multifactorial. Due to episodes of hypotension from his Sepsis and Afib and Lasix - Will consider Nephrology consult. #Hyponatremia: Likely hypervolemic at this time. Improving. Monitor renal function. # Acute COPD exacerbation: On duonebs. Added Solumedrol on 12/09. Started Azithromycin po on 12/11. #Chronic hypoxic respiratory failure on 2-4L NC O2 w/ exertion and 2L NC O2 while at rest or at night. #R. lower extremity wound - due to R. LE Necrotizing fascitis due to MSSA, Grp A strep, & Enterobacter cloacae - completed IV Cefazolin on 12/03/2023 - Plan was o f/u w/ Gen surg this week to evaluate for skin grafting. - Consulted Surgeon Dr. Ortega on 12/09, who provided wound care recs. Will courtesy notify Dr. Cummings of his hospitalization. #Acute gout: Not an acute issue at this time. #Constipation: Lactulose 30gm x 1 on 12/11. #Anxiety: Started Xanax 0.5mg TID prn. He is worried about taking something that can cause addiction, but I have told him that he will not be discharged on this medication. DVT ppx: SCD on L. leg. Attestations Medical Necessity Statement*: Patient is very very ill and needs to remain hospitalized. Coding Level of Care Code 14128 Diagnoses Sepsis, due to unspecified organism, unspecified whether acute organ dysfunction present A41.9 Sepsis acute organ dysfunction status: unspecified Sepsis type: sepsis due to unspecified organism
--- NOTE | 2023-12-13 08:50 | PC.NURSE ---
Lovenox held this AM due to blood in stool, metoprolol held due to bradycardia in the 50's. Physician orders.
--- NOTE | 2023-12-13 09:00 | CTR_ITS ---
PROCEDURE INFORMATION: Exam: CT Abdomen And Pelvis Without Contrast Exam date and time: 12/13/2023 2:09 PM Age: 68 years old Clinical indication: Other: Evaluate for colovesical fistula, ; additional info: Evaluate for colovesical fistula, please have the patient empty his bladder before he drinks TECHNIQUE: Imaging protocol: Computed tomography of the abdomen and pelvis without contrast. Radiation optimization: All CT scans at this facility use at least one of these dose optimization techniques: automated exposure control; mA and/or kV adjustment per patient size (includes targeted exams where dose is matched to clinical indication); or iterative reconstruction. COMPARISON: CT abdomen pelvis wo con [id number] 11/13/2023 10:19 AM RADIATION DOSE METRICS: Total DLP (mGy-cm): 960.83 FINDINGS: Lungs: See Pleural spaces finding. Pleural spaces: Small bilateral pleural effusions. Subjacent atelectasis and airspace disease. Liver: No significant liver pathology. Gallbladder and bile ducts: Calculus is present in the gallbladder neck. No biliary dilatation. Pancreas: Interval appearance of new lobulated inhomogeneous low attenuation structures interposed between the posterior gastric wall and pancreas in the region of the lesser sac as seen on series 3, image 29 measuring in aggregate up to 9.3 x 4.1 cm. This abnormality abuts the anterior aspect of the pancreatic head, has lobulated margination associated with some interspersed areas of higher nodular attenuation (example series 3, image 34). There is an ovoid low-attenuation structure with inhomogeneity inferior to the pancreatic body measuring 3.7 x 2.4 cm on series 3, image 31, also new compared to the prior exam. Other areas of lobulated low-attenuation are present in the gastrohepatic ligament abutting the GE junction and caudate lobe on series 3, image 23 the largest adjacent to the proximal stomach measuring 4.8 x 2.0 cm. Lobulated areas of intermediate attenuation extend inferior to the pancreatic head both anterior and posterior to the 3rd portion of the duodenal on series 3, image 46 with more inferior ill-defined fat infiltration in the right retroperitoneum anterior to the psoas in the upper pelvis series 3, image 59. Spleen: No significant pathology. Adrenal glands: No significant adrenal pathology. Kidneys and ureters: No significant renal pathology. Stomach and bowel: Colonic diverticulosis without evidence of focal inflammatory change. Appendix: No appendiceal pathology evident. Intraperitoneal space: No ascites. Vasculature: No abdominal aortic aneurysm. Lymph nodes: No enlarged nodes by criteria. Urinary bladder: Air is present in the urinary bladder. There is also layering debris in the urinary bladder and a 4 mm focal intraluminal bladder hyperdensity in a dependent position on series 3, image 78 suggesting presence of a intraluminal calculus. Reproductive: No significant prostate pathology. Bones/joints: Old right-sided rib fractures are present. Some of these are ununited. Degenerative changes are present in the spine. Soft tissues: Large fat containing umbilical hernia. Small bilateral fat containing inguinal hernias. CT/CT abdomen pelvis wo con [id number] IMPRESSION: 1. Interval appearance of new multifocal peripancreatic abnormalities as well as adjacent lesions extending into the gastrohepatic ligament and right lower retroperitoneum most likely representing sequelae pancreatitis. Given likely component of evolving pseudocyst formation contrast-enhanced study or MRI recommended for further assessment. 2. Gallstone. 3. Layering debris in the urinary bladder including a more focal hyperdensity suggesting intraluminal bladder calculus. Air is also present in the urinary bladder possibly related to prior Love placement although fistula can not be excluded. No discrete fistula demonstrated. 4. Bibasilar airspace disease and atelectasis with small effusions.
[2023-12-13] MEDS: levalbuterol 0.63 mg/3 mL Neb 0.630000000000000004 MG INHALATION (09:24)
[2023-12-13] MEDS: budesonide 0.5 mg/2 mL Neb INHALATION (09:25)
[2023-12-13] MEDS: ipratropium 0.5 mg/2.5 mL Neb INHALATION (09:25)
--- NOTE | 2023-12-13 09:31 | PC.NURSE ---
[employer] Orders: Weight based heparin gtt, metoprolol 12.5 PO BID, Amiodarone 400mg PO BID
--- NOTE | 2023-12-13 10:09 | PM.PN ---
Subjective Subjective: The patient had a blood culture report showing enterococci, not sensitive to vancomycin!. So he was switched to linezolid and ceftriaxone. He continues to stay in sinus rhythm. Vitals remained stable. His heart rate was in the low 50s this morning. For that reason, the metoprolol was held. Patient has no chest pain, fever, chills or cough. Apparently he is going for a CT of the abdomen and pelvis with oral contrast, mainly look for any colovesical fistula(for his urine was smelling stool!) Medications: Medication Review Details: Current Medications Al Hydrox/Mg Hydrox/Simethicone (Qeji-Hrn-Djrgjqtrs-[place] 30 Ml Udc) 15 ml PO Q4H PRN PRN Reason: INDIGESTION Alprazolam (Alprazolam 0.5 Mg Tablet) 0.5 mg PO TID PRN PRN Reason: ANXIETY Last Admin: 12/13/23 08:16 Dose: 0.5 mg Amiodarone HCl (Amiodarone 200 Mg Tablet) 400 mg PO BID FREYA Aspirin (Aspirin 81 Mg Chew Tablet) 81 mg PO DAILY FREYA Last Admin: 12/13/23 07:56 Dose: 81 mg Azithromycin (Azithromycin 250 Mg Tablet) 500 mg PO DAILY FREYA; Protocol Stop: 12/15/23 09:01 Last Admin: 12/13/23 07:56 Dose: 500 mg Budesonide (Budesonide 0.5 Mg/2 Ml Neb) 0.5 mg INHALATION BID.RESPIRATORY FREYA Last Admin: 12/13/23 09:25 Dose: 0.5 mg Heparin Sodium (Porcine) (Heparin 5,000 Unit/Ml Inj 1 Ml) 0 unit IV PRN PRN; Protocol PRN Reason: Heparin weight-base protocol Heparin Sodium (Porcine) (Heparin 5,000 Unit/Ml Inj 1 Ml) 0 unit IV PRN PRN; Protocol PRN Reason: Heparin weight-base protocol Amiodarone HCl/Dextrose (Nexterone) 360 mg in 200 mls @ 0 mls/hr IV .Q0M FREYA; Protocol Last Titration: 12/12/23 17:44 Dose: 0 mg/min, 0 mls/hr Ceftriaxone Sodium 2,000 mg/ (Sodium Chloride) 50 mls @ 100 mls/hr IV Q24H [facility]RE[facility]; Protocol Last Infusion: 12/12/23 13:48 Dose: Infused Linezolid (Zyvox Premix) 600 mg in 300 mls @ 300 mls/hr IV Q12H [facility]; Protocol Last Infusion: 12/13/23 04:10 Dose: Infused Heparin Sodium/Sodium Chloride (Heparin Drip) 25,000 unit in 500 mls @ 0 mls/hr IV .Q0M [facility]REYA; Protocol Heparin Sodium/Sodium Chloride (Heparin Drip) 25,000 unit in 500 mls @ 0 mls/hr IV .Q0M [facility]RE[facility]; Protocol Ipratropium [place] (Ipratropium 0.5 Mg/2.5 Ml Neb) 0.5 mg INHALATION Q6H PRN PRN Reason: SHORTNESS OF BREATH Levalbuterol HCl (Levalbuterol 0.63 Mg/3 Ml Neb) 0.63 mg INHALATION Q6H.RESP [facility] Last Admin: 12/13/23 09:24 Dose: 0.63 mg Lidocaine (Lidocaine 5% Patch) 1 patch TOPICAL [id number] [facility] Last Admin: 12/13/23 07:56 Dose: 1 patch Metoprolol Tartrate (Metoprolol Tartrate 25 Mg Tablet) 12.5 mg PO BID@0900,2100 [facility] Midodrine (Midodrine 5 Mg Tablet) 5 mg PO Q8H [facility] Last Admin: 12/13/23 07:56 Dose: 5 mg Naloxone HCl (Naloxone 0.4 Mg/Ml Sdv) 0.1 mg IVP Q2M PRN PRN Reason: OPIATERV Nystatin (Nystatin 100,000 Unit/Ml Udc 5 Ml) 100,000 unit PO QID [facility] Last Admin: 12/13/23 07:57 Dose: 100,000 unit Ondansetron HCl (Ondansetron 2 Mg/Ml Sdv 2 Ml) 4 mg IVP Q8H PRN PRN Reason: vomiting, or N/V if npo Pantoprazole Sodium (Pantoprazole 40 Mg Sdv) 40 mg IVP Q12H [facility] Saliva Substitute (Saliva Stimulant K[place] 30 Ml Btl) 1 spray MUCOUS MEM Q2H PRN PRN Reason: DRYNESS Sucralfate (Sucralfate 1 Gm Tablet) 1 gm PO AC&BEDTIME [facility] Last Admin: 12/13/23 07:56 Dose: 1 gm Trazodone HCl (Trazodone 50 Mg Tablet) 25 mg PO BEDTIME [facility] Last Admin: 12/12/23 23:24 Dose: 25 mg Vitals/I&O/Wt Last Vital Signs Temp 97.5 F L 12/13/23 04:00 Pulse 57 L 12/13/23 09:25 Resp 20 H 12/13/23 09:25 BP 136/75 12/13/23 07:17 Pulse Ox 98 12/13/23 09:25 O2 Del Method Nasal Cannula 12/13/23 09:25 O2 Flow Rate 2 12/13/23 09:25 12/12/23 12/13/23 12/13/23 22:59 06:59 14:59 Intake Total 1321.969 / 1601.152 800 / 2401.152 240 / 240 Output Total 500 / 1190 600 / 1790 Balance 821.969 / 411.152 200 / 611.152 240 / 240 Weight last 48 hrs Weight 222 lb 8 oz Weight 213 lb 4.8 oz Physical Exam Narrative: GENERAL: The patient is alert and oriented times three. Not in any acute distress. HEENT: No significant pallor, icterus or lymphadenopathy.Oral cavity: There are no mucous membrane lesions. NECK: Trachea appears to be central. No masses noted. No JVD or thyromegaly appreciated. RESPIRATORY: Chest is symmetrical. No intercostals muscle retraction or any accessory muscle activation. There is no chest wall tenderness. Breath sounds are heard bilaterally. No rales or rhonchi heard. No evidence of any consolidation. BREASTS: Deferred. HEART: The heart sounds are normal. No S3 or S4. Short systolic murmur in the lower sternal border .No pericardial rub ABDOMEN: No vessel pulsations or distention. No tenderness. No organomegaly appreciated. Bowel sounds are normally heard. : Deferred. RECTAL: Deferred. LYMPHATIC: No lymphadenopathy noted in the neck. EXTREMITIES: Open debrided wound on the lower anterolateral aspect of the right leg. Some healing ulcers on the left leg. 1+ edema of both lower extremities. MUSCULOSKELETAL: No acute joint deformities or swelling SKIN: Some features of chronic venous stasis. No cyanosis. NEUROPSYCHIATRIC: The patient is alert and oriented x3. Appears to be in a good mood. No tremors or rigidity noted. Data 12/13/23 04:03 12/13/23 04:03 Other Labs: Laboratory Last Values WBC 23.57 10^3/uL (3.29-11.43) H 12/13/23 04:03 RBC 2.94 10^6/uL (3.85-5.65) L 12/13/23 04:03 Hgb 8.70 g/dL (11.27-16.99) L 12/13/23 04:03 Hct 27.8 % (37-53) L 12/13/23 04:03 MCV 94.6 fl (82-101) 12/13/23 04:03 MCH 29.6 pg (27-33) 12/13/23 04:03 MCHC 31.3 g/dL (30-55) 12/13/23 04:03 RDW 17.8 % (12.1-15.1) H 12/13/23 04:03 Plt Count 164 10^3/cmm (157-399) 12/13/23 04:03 MPV 11.2 fL (7.4-10.4) H 12/13/23 04:03 Neut % (Auto) 92.9 % 12/13/23 04:03 Lymph % (Auto) 2.4 % 12/13/23 04:03 [place] % (Auto) 4.0 % 12/13/23 04:03 Eos % (Auto) 0.0 % 12/13/23 04:03 Baso % (Auto) 0.0 % 12/13/23 04:03 Neut # (Auto) 21.87 10^3/uL (1.8-7.7) H 12/13/23 04:03 Lymph # (Auto) 0.6 10^3/uL (0.8-4.8) L 12/13/23 04:03 [place] # (Auto) 1.0 10^3/uL (0.2-0.9) H 12/13/23 04:03 Eos # (Auto) 0.0 10^3/uL (0.0-0.8) 12/13/23 04:03 Baso # (Auto) 0.0 10^3/uL (0.0-0.1) 12/13/23 04:03 Nucleated RBC % (auto) 0 % 12/13/23 04:03 Nucleated RBCs # 0.0 /100WBC 12/13/23 04:03 ESR 16 mm/hr (0-10) H 12/08/23 23:11 PT 16.90 SECONDS (12.1-14.9) H 12/08/23 23:11 INR 1.33 (0.8-1.2) H 12/08/23 23:11 Sodium 134 mmol/L (136-145) L 12/13/23 04:03 Potassium 3.4 mmol/L (3.5-5.1) L 12/13/23 04:03 Chloride 89 mmol/L (98-107) L 12/13/23 04:03 Carbon Dioxide 33 mmol/L (22-29) H 12/13/23 04:03 Anion Gap 15.4 (5-19) 12/13/23 04:03 BUN 40 mg/dL (8-23) H 12/13/23 04:03 Creatinine 1.6 mg/dL (0.7-1.2) H 12/13/23 04:03 GFR Calculation 43.3 mL/min (90-130) L 12/13/23 04:03 Glucose 129 mg/dL (65-115) H 12/13/23 04:03 POC Glucose 105 mg/dL (70-110) 12/09/23 11:10 Calculated Osmolality 289 mOsm/kg (285-295) 12/13/23 04:03 Lactic Acid 1.3 mmol/L (0.5-2.2) 12/08/23 23:11 Calcium 8.2 mg/dL (8.5-10.5) L 12/13/23 04:03 Phosphorus 3.7 mg/dL (2.5-4.5) 12/13/23 04:03 Magnesium 2.5 mg/dL (1.7-2.3) H 12/13/23 04:03 Iron 72 ug/dL (59-158) 12/12/23 03:27 TIBC 189 mcg/dl 12/12/23 03:27 % Saturation 38.0 % (20-50) 12/12/23 03:27 Unsat Iron Binding 117 ug/dL (112-347) 12/12/23 03:27 Ferritin 484 ng/mL (30-400) H 12/12/23 03:27 Total Bilirubin 0.3 mg/dL (0.15-1.2) 12/13/23 04:03 AST 6 U/L (0-40) 12/13/23 04:03 ALT < 5 U/L (0-41) 12/13/23 04:03 Alkaline Phosphatase 80 U/L (40-130) 12/13/23 04:03 Troponin T 5th Gen ng/L 739 ng/L (0-15) H* 12/10/23 20:31 Troponin T Baseline 984 ng/L (0-15) H* 12/09/23 08:36 Troponin T 120 Minute 986.0 ng/L (0-15) H 12/09/23 10:44 Delta Troponin T 2.0 ABS# (0-10) 12/09/23 10:44 Troponin T Hi Sens 6Hr 1025 ng/L (0-15) H 12/09/23 14:24 Troponin T Hi Sens 6Hr Delta 41 ng/L (0-12) H* 12/09/23 14:24 C-Reactive Protein 29.9 mg/L (0.0-4.9) H 12/08/23 23:11 NT-Pro-B Natriuret Pep 4364 pg/mL (0-125) H 12/11/23 03:15 Total Protein 5.0 g/dL (6.6-8.7) L 12/13/23 04:03 Albumin 3.4 g/dL (3.5-5.2) L 12/13/23 04:03 Globulin 1.6 g/dL (1.3-4.6) 12/13/23 04:03 Triglycerides 102 mg/dL (0-150) 12/12/23 03:27 Cholesterol 129 mg/dL (0-200) 12/12/23 03:27 LDL Cholesterol, Calc 67 mg/dL (50-129) 12/12/23 03:27 HDL Cholesterol 42 mg/dL (60-100) L 12/12/23 03:27 LDL/HDL Ratio 1.60 RATIO (0.00-3.22) 12/12/23 03:27 Cholesterol/HDL Ratio 3.07 mg/dL (1.0-5.00) 12/12/23 03:27 Vitamin B12 711 pg/mL (232-1245) 12/12/23 03:27 Folate 5.2 ng/mL (4.5-32.2) 12/12/23 03:27 Procalcitonin 0.22 ng/mL (0-0.5) 12/08/23 23:11 TSH 2.64 uIU/mL (0.27-4.20) 12/09/23 08:36 Free T4 1.11 ng/dL (0.82-1.77) 12/09/23 08:36 Urine Color Yellow (Yellow) 12/08/23 23:17 Urine Appearance Cloudy (CLEAR) A 12/08/23 23:17 Urine pH 6.5 (5-7) 12/08/23 23:17 Ur Specific [place] 1.005 (1.005-1.030) 12/08/23 23:17 Urine Protein Trace (Negative) 12/08/23 23:17 Urine Glucose (UA) Trace (Normal) H 12/08/23 23:17 Urine Ketones Negative (Negative) 12/08/23 23:17 Urine Blood 3+ (Negative) H 12/08/23 23:17 Urine Nitrate Negative (Negative) 12/08/23 23:17 Urine Bilirubin Neg (Negative) 12/08/23 23:17 Urine Urobilinogen Neg mg/dL (Negative) 12/08/23 23:17 Ur Leukocyte Esterase 2+ (Negative) H 12/08/23 23:17 Urine RBC 15-25 /hpf (0-2) H 12/08/23 23:17 Urine WBC 25-40 /hpf (0-5) H 12/08/23 23:17 Ur Squamous Epith Cells None /hpf (0-5) 12/08/23 23:17 Amorphous Sediment Not Reportable 12/08/23 23:17 Urine Bacteria 3+ /hpf (NONE) H 12/08/23 23:17 Urine Mucus 2+ /hpf 12/08/23 23:17 Vancomycin Trough 20.6 ug/mL (10-15) H 12/12/23 21:34 C. difficile (PCR) Negative (Negative) 12/12/23 23:25 Blood Type AB Negative 12/11/23 11:20 Rho(D) Type Negative 12/11/23 11:20 Antibody Screen Negative 12/11/23 11:20 Crossmatch See Detail 12/11/23 11:20 Micro: Microbiology 12/08/23 23:17 Urine Culture - Preliminary Urine,Clean Catch Escherichia coli Strep species, gamma-hemolytic 12/12/23 23:25 Occult Blood (FIT) - Final Stool - Stool Aspirate 12/12/23 13:30 Blood Culture - Preliminary Blood SPECIMEN COLLECTED 12/12/23 13:26 Blood Culture - Preliminary Blood SPECIMEN COLLECTED 12/09/23 00:01 Blood Culture - Preliminary Blood Enterococcus faecium vre A&P Assessment and plan (1) Hypotension: Currently resolved. Continue on the current medications Qualifiers: Hypotension type: other hypotension type Qualified Code(s): I95.89 - Other hypotension (2) Atrial fibrillation with RVR: Currently the patient is in sinus rhythm. Will start her on amiodarone p.o. 400 mg twice daily. Because of the relative bradycardia I may cut back on the metoprolol 12.5 mg p.o. twice daily (3) Elevated troponin: Most likely this patient had a type I AK. We may consider a cardiac catheterization after treating the infection appropriately with the current antibiotics (4) CHF (congestive heart failure), NYHA class III: Patient seems to have significant drop in the LV ejection fraction from 27th of last month. The current ejection fraction is around 40 to 45% by echocardiogram. He has multiple wall motion normalities. He requires a cardiac catheterization to further evaluate his coronary status and decide on further management. Qualifiers: Congestive heart failure type: systolic Congestive heart failure chronicity: chronic Qualified Code(s): I50.22 - Chronic systolic (congestive) heart failure (5) NSVT (nonsustained ventricular tachycardia): Started on p.o. amiodarone as mentioned above (6) Gastric ulcer: Continue the current management. No evidence of any active bleed Qualifiers: Gastric ulcer chronicity: unspecified ulcer chronicity Gastric ulcer complication status: without hemorrhage or perforation Qualified Code(s): K25.9 - Gastric ulcer, unspecified as acute or chronic, without hemorrhage or perforation (7) ALTA (acute kidney injury): The BUN/creatinine levels are going up (8) Anemia associated with acute blood loss: Fairly stable Plan Other problems are Vancomycin resistant enterococci in the blood. Persistent leukocytosis Possible colovesical fistula-undergoing investigation Necrotizing fasciitis, slow healing Based on the patient clinical progress, further management decisions will be made May consider cardiac catheterization sometime next week Attestations Medical Necessity Statement*: Patient requires continued hospital stay for close monitoring and further management Coding Level of Care Code [id number] Diagnoses Other specified hypotension I95.89 Hypotension type: other hypotension type Atrial fibrillation with RVR I48.91 Elevated troponin R79.89 Chronic systolic congestive heart failure, NYHA class 3 I50.22 Congestive heart failure type: systolic Congestive heart failure chronicity: chronic NSVT (nonsustained ventricular tachycardia) I47.29 Gastric ulcer without hemorrhage or perforation, unspecified chronicity K25.9 Gastric ulcer chronicity: unspecified ulcer chronicity Gastric ulcer complication status: without hemorrhage or perforation ALTA (acute kidney injury) N17.9 Anemia associated with acute blood loss D62
[2023-12-13] MEDS: amiodarone 200 mg Tablet 400 MG PO ×2 (10:51→16:27)
[2023-12-13] MEDS: metoprolol tartrate 25 mg Tablet 12.5 MG PO ×2 (10:51→21:46)
[2023-12-13] MEDS: heparin drip 25,000 UNIT/500 ML PREMIX 28 UNIT IV (11:01)
[2023-12-13 12:11] LABS: INR 1.21 (0.8-1.2)
[2023-12-13 12:12] LABS: Partial Thromboplastin Time 37.3 SECONDS (23.9-36.7)
[2023-12-13] MEDS: cefTRIAXone 2,000 MG in sodium chloride 0.9% (plus) 50 ML 100 MG IV (12:34)
[2023-12-13] MEDS: iohexol 350 mg/mL 500 mL Btl (per mL) PO (14:17)
[2023-12-13] MEDS: HYDROmorphone 1 mg/mL INJ 1 mL 0.5 MG IVP ×2 (17:02→21:47)
[2023-12-13] MEDS: trazodone 50 mg Tablet 25 MG PO (21:45)
[2023-12-14] VITALS (11 sets, daily range): BP systolic 110–137; BP diastolic 64–71; PULSE 48–67; RESP 13–18; TEMP 35.8–36.4; O2SAT 94–98
[2023-12-14] MEDS: midodrine 5 mg TABLET PO ×2 (01:57→08:59)
[2023-12-14] MEDS: linezolid premix 600 MG/300 ML PREMIX 300 MG IV ×2 (01:58→13:54)
[2023-12-14 04:37] LABS: INR 1.05 (0.8-1.2)
[2023-12-14 04:38] LABS: Partial Thromboplastin Time 31.3 SECONDS (23.9-36.7)
[2023-12-14] MEDS: sucralfate 1 gm Tablet PO ×2 (05:31→11:34)
[2023-12-14] MEDS: pantoprazole 40 mg SDV IVP ×2 (05:32→16:20)
[2023-12-14] MEDS: HYDROmorphone 1 mg/mL INJ 1 mL 0.5 MG IVP ×3 (05:33→16:21)
[2023-12-14] MEDS: budesonide 0.5 mg/2 mL Neb INHALATION (07:41)
--- NOTE | 2023-12-14 08:33 | P.PN_ITS ---
Subjective 2 Subjective: The patient has no complaints. He denies any feelings of anxiety, any fever, chills, dizziness, lightheadedness, abdominal pain, nausea, vomiting. As of this morning, he has not had any BMs or bloody BMs. He is starting to become more volume overloaded again. Medications: Reviewed: Yes Medication Review Details: Current Medications Al Hydrox/Mg Hydrox/Simethicone (Phxo-Ykh-Zwnnxuiyb-Chapo 30 Ml Udc) 15 ml PO Q4H PRN PRN Reason: INDIGESTION Alprazolam (Alprazolam 0.5 Mg Tablet) 0.5 mg PO TID PRN PRN Reason: ANXIETY Last Admin: 12/13/23 08:16 Dose: 0.5 mg Amiodarone HCl (Amiodarone 200 Mg Tablet) 400 mg PO BID FREYA Aspirin (Aspirin 81 Mg Chew Tablet) 81 mg PO DAILY FREYA Last Admin: 12/13/23 07:56 Dose: 81 mg Azithromycin (Azithromycin 250 Mg Tablet) 500 mg PO DAILY FREYA; Protocol Stop: 12/15/23 09:01 Last Admin: 12/13/23 07:56 Dose: 500 mg Budesonide (Budesonide 0.5 Mg/2 Ml Neb) 0.5 mg INHALATION BID.RESPIRATORY FREYA Last Admin: 12/13/23 09:25 Dose: 0.5 mg Heparin Sodium (Porcine) (Heparin 5,000 Unit/Ml Inj 1 Ml) 0 unit IV PRN PRN; Protocol PRN Reason: Heparin weight-base protocol Heparin Sodium (Porcine) (Heparin 5,000 Unit/Ml Inj 1 Ml) 0 unit IV PRN PRN; Protocol PRN Reason: Heparin weight-base protocol Amiodarone HCl/Dextrose (Nexterone) 360 mg in 200 mls @ 0 mls/hr IV .Q0M FREYA; Protocol Last Titration: 12/12/23 17:44 Dose: 0 mg/min, 0 mls/hr Ceftriaxone Sodium 2,000 mg/ (Sodium Chloride) 50 mls @ 100 mls/hr IV Q24H FREYA; Protocol Last Infusion: 12/12/23 13:48 Dose: Infused Linezolid (Zyvox Premix) 600 mg in 300 mls @ 300 mls/hr IV Q12H FREYA; Protocol Last Infusion: 12/13/23 04:10 Dose: Infused Heparin Sodium/Sodium Chloride (Heparin Drip) 25,000 unit in 500 mls @ 0 mls/hr IV .Q0M FREYA; Protocol Heparin Sodium/Sodium Chloride (Heparin Drip) 25,000 unit in 500 mls @ 0 mls/hr IV .Q0M FREYA; Protocol Ipratropium [place] (Ipratropium 0.5 Mg/2.5 Ml Neb) 0.5 mg INHALATION Q6H PRN PRN Reason: SHORTNESS OF BREATH Levalbuterol HCl (Levalbuterol 0.63 Mg/3 Ml Neb) 0.63 mg INHALATION Q6H.RESP [facility] Last Admin: 12/13/23 09:24 Dose: 0.63 mg Lidocaine (Lidocaine 5% Patch) 1 patch TOPICAL [id number] [facility] Last Admin: 12/13/23 07:56 Dose: 1 patch Metoprolol Tartrate (Metoprolol Tartrate 25 Mg Tablet) 12.5 mg PO BID@0900,2100 [facility] Midodrine (Midodrine 5 Mg Tablet) 5 mg PO Q8H [facility] Last Admin: 12/13/23 07:56 Dose: 5 mg Naloxone HCl (Naloxone 0.4 Mg/Ml Sdv) 0.1 mg IVP Q2M PRN PRN Reason: OPIATERV Nystatin (Nystatin 100,000 Unit/Ml Udc 5 Ml) 100,000 unit PO QID [facility] Last Admin: 12/13/23 07:57 Dose: 100,000 unit Ondansetron HCl (Ondansetron 2 Mg/Ml Sdv 2 Ml) 4 mg IVP Q8H PRN PRN Reason: vomiting, or N/V if npo Pantoprazole Sodium (Pantoprazole 40 Mg Sdv) 40 mg IVP Q12H [facility] Saliva Substitute (Saliva Stimulant [place] 30 Ml Btl) 1 spray MUCOUS MEM Q2H PRN PRN Reason: DRYNESS Sucralfate (Sucralfate 1 Gm Tablet) 1 gm PO AC&BEDTIME [facility] Last Admin: 12/13/23 07:56 Dose: 1 gm Trazodone HCl (Trazodone 50 Mg Tablet) 25 mg PO BEDTIME [facility] Last Admin: 12/12/23 23:24 Dose: 25 mg Vitals/I&O/Wt Last Vital Signs Temp 97.4 F L 12/14/23 03:48 Pulse 51 L 12/14/23 07:43 Resp 16 12/14/23 07:43 BP 110/64 12/14/23 07:04 Pulse Ox 97 12/14/23 07:43 O2 Del Method Nasal Cannula 12/14/23 07:43 O2 Flow Rate 2 12/14/23 07:43 12/13/23 12/14/23 12/14/23 22:59 06:59 14:59 Intake Total 1400 / 1930 300 / 2230 Output Total 450 / 450 850 / 1300 340 / 340 Balance 950 / 1480 -550 / 930 -340 / -340 Weight last 48 hrs Weight 95.799 kg Weight 100.924 kg Physical Exam 2 Const: GENERAL APPEARANCE: cooperative, comfortable and well kempt N UTRITIONAL APPEARANCE: obese ORIENTATION/CONSCIOUSNESS: Yes awake, Yes oriented to person, Yes oriented to place and Yes oriented to time HENMT: COMMON NORMALS: normocephalic, atraumatic and external ears normal H EAD & SCALP: normocephalic and atraumatic EXTERNAL EAR: Yes external ears normal MOUTH: Normal oral and palatal mucosa present THROAT: posterior oropharynx normal Eye: COMMON NORMALS: Equal, round and reactive pupils present PUPIL: Yes Equal, round and reactive pupils present EOM: No EOM abnormal Neck/C-Spine: COMMON NORMALS: Thyroid normal GENERAL: Yes normal visual inspection, Yes trachea midline and Yes anterior neck swelling THYROID: T hyroid normal CAROTIDS: No bruit CERVICAL SPINE: Yes cervical ROM normal Lymph: LYMPHATIC: No no lymphedema noted and lymphadenopathy Chest: CHEST: Yes abnormal inspection of the chest, Yes Symmetrical chest wall rise and Yes laceration Resp: OTHER: B/l expiratory wheezes w/ barely audible breath sounds in the b/l lower lung bases. Cardio: OTHER: irregular rate and rhythm. It is difficult to appreciate any murmurs, rubs, or gallops, given the noise in the room. GI: OTHER: BS+, nontender, nondistended, no guarding, no rigidity, no rebound tenderness, no organomegaly. Extremity: GENERAL: No clubbing, No cyanosis and No edema Neuro: SENSORIUM/ORIENTATION: Yes oriented to person, Yes oriented to place and Yes oriented to time Psych: COMMON NORMALS: speech normal APPEARANCE: Yes well kempt A TTITUDE: Yes calm and Yes engaged SPEECH: Yes normal speech MOOD & AFFECT: Yes euthymic mood Skin: COMMON NORMALS: no rashes or lesions noted GENERAL SKIN EXAM: no rashes or lesions noted Data 12/14/23 09:32 12/14/23 09:32 Micro: Microbiology 12/08/23 23:58 Blood Culture - Final Blood NO GROWTH AFTER 5 DAYS 12/13/23 14:49 Occult Blood (FIT) - Final Stool Routine Collection 12/12/23 13:30 Blood Culture - Preliminary Blood NEGATIVE TO DATE 12/12/23 13:26 Blood Culture - Preliminary Blood NEGATIVE TO DATE 12/08/23 23:17 Urine Culture - Preliminary Urine,Clean Catch Escherichia coli Strep species, gamma-hemolytic A&P Assessment and plan (1) Sepsis: Qualifiers: Sepsis acute organ dysfunction status: unspecified Sepsis type: sepsis due to unspecified organism Qualified Code(s): A41.9 - Sepsis, unspecified organism Plan Mr. Herrmann is a 68yo man w/ chronic HFpEF, COPD, Chronic hypoxic respiratory failure on 2-4L NC O2 w/ exertion and 2L NC O2 while at rest or at night, who was brought from the detention on the night of 12/08/2023 for an episode of Syncope. He was hospitalized here at [facility] from 11/11/2023 for R. lower extremity Necrotizing Fascitis due to MSSA, Grp A strep, & Enterobacter cloacae s/p debridement on 11/14 & 11/21/2023 and Acute blood loss anemia s/p EGD on 11/12/2023 showing gastric ulcers. He was managed w/ Vanc/Meropenem & Clindamycin while hospitalized. He was d/c'ed to a SNF on 11/27/2023 with IV Cefazolin and a LUE PICC line. He completed the abx on 12/05/2023. On presentation, he was in new onset Afib w/ RVR in the ED and was hypotensive. He was given an Amiodarone bolus in the ED and started on Amiodarone drip. BCx and UCx were ordered. He was empirically given Vanc/Zosyn in the ED for a possible UTI. On admission, he met criteria for Sepsis. Amiodarone drip was contd and he was started on Ceftriaxone. He was in acute COPD exacerbation on admission, so Solumedrol & Azithromycin were added. He was also in acute on chronic HFpEF(TTE on 11/15/2023 shows EF of 72% w/no wall motion abnormalities, and mild tricuspid regurg), so he was given a low dose of Lasix 20mg IVP x 1. Work up for his Afib w/ RVR showed concern for NSTEMI based on high-sensitivity Trop T of >1000. His TSH & free T4 were 2.64 and 1.11 on 12/09 respectively. Given persistent episodes of hypotension, and patient remaining in A-fib with RVR, in the setting of elevated Trop T, the Typing Secretary was consulted. The Typing Secretary maintained the patient on an Amiodarone drip and initiated low dose Metoprolol tartrate was intiated. The patient converted into NSR around 9:30am on 12/12/2023 and was converted to po Amiodarone on 12/13/2023. A limited TTE was done on 12/11 that showed a new EF of 40-45% w/ moderate diffuse hypokinesis of the septal and inferior wall segments and mild biatrial enlargement. Cardiology planned to an Angiogram on 12/15. Per nursing staff he had bloody BMs on 12/12/2023; however, given Cardiology's concern for a Cardiac event, he was started on heparin drip. He had frankly bloody BMs that I witnessed on , so I d/c'ed the heparin drip. Furthermore, on admission, he quickly developed vol overload, Acute on chronic heart failure. Although he responded to Lasix, developed an ALTA, likely a result of the pre-renal insults to his kidneys. On admission, his UCx quickly grew gamma hemolytic strep (Speciation/sensitivities pending). He was Vancomycin was added to the Vanc/Ceftriaxone & Ceftriaxone was switched to Meropenem. His UCx quickly grew gamma hemolytic strep (Speciation/sensitivities pending) and E. coli resistant to Amoxicillin. One out of 4 BCx on 12/12/2023 was positive for VRE faecium, so BCx were repeated on 12/12/2023, he was switched to Linezolid and Ceftriaxone. The PICC line was not pulled until 12/13/2023, and its tip was sent for Cx. There was concern by the nursing staff that the patient had a Colovesical fistula given that his urine had been persistently been brown w/ chunks and that it smelled like diarrhea. A CT abd/pelvis w/ oral contrast was done on 12/13/2023 that did not rule out a Colovesical fistula, but it did show multifocal peripancreatic abnormalities concerning for sequelae of pancreatitis. An MRI was recommended for further assessment. When the patient was asked about this, he denied any history of abdominal pain. Given these CT findings and his worsening leukocytosis despite being on Linezolid, the decision was made to transfer him to [facility] in [place], [place], where he would have access to Infectious Disease service, GI, Cardiology, NEphrology, and possibly Urology. Dr. Edmondson of [facility] accepted the patient. Of note, on admission, there was concern that he had diarrhea prior to coming from the [place] [facility]. He did not have multiple episodes of diarrhea at the [place] [facility]. Of note, he was to be seen by the Gen Surgeon, Dr. Cummings, on 12/10/2023 for skin grafting of his R. LE wound. Dr. Cummings was notified that the patient was hospitalized. Finally, the patient developed some anxiety related to his illnesses. I started him on 0.5mg TID prn of Xanax w/ the understanding that he would not be discharged on it, and he is in agreement. #Questionable Syncope: Patient adamantly denies that he had an episode of syncope #New onset Afib w/ RVR: - due to hypotension, he was given Amiodarone bolus in the ED and started on Amiodarone drip. - Cardiology consulted on 12/09. On Amiodarone drip and Metoprolol tartrate - TSH wnl. - Limited ECHO on 12/11/2023 showed an EF of 40-45% w/ moderate diffuse hypokinesis of the septal and inferior wall segments and mild biatrial enlargement. #NSTEMI I - Consulted Cardiology. - Started ACS protocol based on elevated Trop T, but given concerns about the patient's hx of a recent GI bleed, d/c'ed full dose lovenox. - Will continued to hold initiation of full dose Lovenox. Will also hold aspirin. #NSVT #HTN: No acute issues at this time. #Acute on chronic HFrEF: - TTE on 11/15 shows EF of 72% w/no wall motion abnormalities, and mild tricuspid regurg. - Limited ECHO on 12/11/2023 showed an EF of 40-45% w/ moderate diffuse hypokinesis of the septal and inferior wall segments and mild biatrial enlargement. - Cardiology following. #Vol overload to the point that his skin was weeping all over. - s/p Lasix 20mg IVP x 1 on admission. Strict Is & Os. - s/p Lasix, albumin, acetazolamide, and metolazone on 12/10. Held Lasix on 12/11. - Give another dose of Lasix 40mg IV and albumin x 1 on 12/12. - I have encouraged the patient to be vigilant about his po intake. #Sepsis #Leukocytosis #VRE faecium Bacteremia: Source is possible colovesical fistula - 10/23 BCx ordered in the ED on 12/08 showed VRE faecium - BCx from PICC line done on 12/09 is negative. - Based on discussion with ID who was not sectional belt mold assembler on 12/12/2023, I d/c'ed the PICC line on 12/12, repeated BCx on 12/12, and started Linezolid and Ceftriaxone on 12/12 w/ plan to repeat BCx on 12/14. -CT abd/pelvis w/o IV contrast but with oral contrast did not r/o colovesical fistula on CT #Amoxicillin resistant UTI and Gamma hemolytic Strep: - Possibly due to - s/p Vanc/Zosyn in the ED. Ceftriaxone started on admission. Added Vanc on 12/09/2023. D/c'ed Ceftriaxone on 12/10 and started Meropenem. D/c'ed Meropenem on 12/12 and started Ceftriaxone. #Diarrhea: He only had one episode in the [place] [facility]. Less likelihood that he had C. diff. #ALTA: multifactorial. Due to episodes of hypotension from his Sepsis and Afib and Lasix - Will consider Nephrology consult. #Hyponatremia: Likely hypervolemic at this time. Improving. Monitor renal function. # Acute COPD exacerbation: On duonebs. Added Solumedrol on 12/09 & he has completed 5 days. Started Azithromycin po on 12/11. Last dose on 12/15/2023. #Chronic hypoxic respiratory failure on 2-4L NC O2 w/ exertion and 2L NC O2 while at rest or at night. #R. lower extremity wound - due to R. LE Necrotizing fascitis due to MSSA, Grp A strep, & Enterobacter cloacae - completed IV Cefazolin on 12/03/2023 - Plan was o f/u w/ Gen surg this week to evaluate for skin grafting. - Consulted Surgeon Dr. Ortega on 12/09, who provided wound care recs. Courtesy notified Dr. Cummings of his hospitalization on 12/12/2023. #Anxiety: Started Xanax 0.5mg TID prn. He is worried about taking something that can cause addiction, but I have told him that he will not be discharged on this medication. #Hematochezia - Bloody BM noted on 12/12 & 12/13. Will D/c Heparin drip and consult Gen Surg in the AM of 12/14/2023 #Anemia: likely of chronic disease. Iron sat of 38% & Ferritin of 484 on 12/12/2023. #Gastric ulcers: - noted on 11/12/2023 EGD. Continue PPI BID & Sucralfate #Constipation: Lactulose 30gm x 1 on 12/11. #Acute gout: Not an acute issue at this time. DVT ppx: SCD on L. leg. Attestations 2 Medical Necessity Statement*: I will transfer this patient for a higher level of care. Coding Level of Care Code 20664 Diagnoses Sepsis, due to unspecified organism, unspecified whether acute organ dysfunction present A41.9 Sepsis acute organ dysfunction status: unspecified Sepsis type: sepsis due to unspecified organism
[2023-12-14] MEDS: azithromycin 250 mg Tablet 500 MG PO (08:44)
[2023-12-14] MEDS: amiodarone 200 mg Tablet 400 MG PO (08:51)
[2023-12-14] MEDS: lidocaine 5% Patch 1 PATCH TOPICAL (08:51)
[2023-12-14] MEDS: nystatin 100,000 unit/mL UDC 5 mL 100000 UNIT PO ×3 (08:56→16:20)
--- NOTE | 2023-12-14 09:18 | PM.PN ---
Subjective Subjective: This patient had some red blood in the stool yesterday. He had a CT of the abdomen and pelvis. He was found to have some evidence of pancreatitis and possible early pseudocyst formation. Also he had air in the bladder possibly from the Love's catheter or from a colovesical fistula. He seems to be requiring further evaluation. His white cell count seems to be going up. Even with the change of antibiotics, there seems to be no significant improvement. Patient seems to be more feeling tired/weak. But no chest pain. Telemetry shows sinus rhythm. Blood pressure seems to be stable. Urinary creatinine level seems to be stable Medications: Medication Review Details: Current Medications Al Hydrox/Mg Hydrox/Simethicone (Ophl-Erd-Ccirliqcx-[place] 30 Ml Udc) 15 ml PO Q4H PRN PRN Reason: INDIGESTION Alprazolam (Alprazolam 0.5 Mg Tablet) 0.5 mg PO TID PRN PRN Reason: ANXIETY Last Admin: 12/13/23 21:45 Dose: 0.5 mg Amiodarone HCl (Amiodarone 200 Mg Tablet) 400 mg PO BID FREYA Last Admin: 12/14/23 08:51 Dose: 400 mg Aspirin (Aspirin 81 Mg Chew Tablet) 81 mg PO DAILY FREYA Last Admin: 12/13/23 07:56 Dose: 81 mg Azithromycin (Azithromycin 250 Mg Tablet) 500 mg PO DAILY [facility]; Protocol Stop: 12/15/23 09:01 Last Admin: 12/14/23 08:44 Dose: 500 mg Budesonide (Budesonide 0.5 Mg/2 Ml Neb) 0.5 mg INHALATION BID.RESPIRATORY [facility] Last Admin: 12/14/23 07:41 Dose: 0.5 mg Hydromorphone HCl (Hydromorphone 1 Mg/Ml Inj 1 Ml) 0.5 mg IVP Q4H PRN PRN Reason: SEVERE PAIN Last Admin: 12/14/23 05:33 Dose: 0.5 mg Amiodarone HCl/Dextrose (Nexterone) 360 mg in 200 mls @ 0 mls/hr IV .Q0M FREYA; Protocol Last Titration: 12/12/23 17:44 Dose: 0 mg/min, 0 mls/hr Ceftriaxone Sodium 2,000 mg/ (Sodium Chloride) 50 mls @ 100 mls/hr IV Q24H FERYA; Protocol Last Infusion: 12/13/23 14:43 Dose: Infused Linezolid (Zyvox Premix) 600 mg in 300 mls @ 300 mls/hr IV Q12H [facility]; Protocol Last Infusion: 12/14/23 03:37 Dose: Infused Ipratropium [place] (Ipratropium 0.5 Mg/2.5 Ml Neb) 0.5 mg INHALATION Q6H PRN PRN Reason: SHORTNESS OF BREATH Levalbuterol HCl (Levalbuterol 0.63 Mg/3 Ml Neb) 0.63 mg INHALATION Q6H.RESP PRN PRN Reason: SHORTNESS OF BREATH Lidocaine (Lidocaine 5% Patch) 1 patch TOPICAL [id number] [facility] Last Admin: 12/14/23 08:51 Dose: 1 patch Metoprolol Tartrate (Metoprolol Tartrate 25 Mg Tablet) 12.5 mg PO BID@0900,2100 [facility] Last Admin: 12/14/23 08:55 Dose: Not Given Midodrine (Midodrine 5 Mg Tablet) 5 mg PO Q8H [facility] Last Admin: 12/14/23 08:59 Dose: 5 mg Naloxone HCl (Naloxone 0.4 Mg/Ml Sdv) 0.1 mg IVP Q2M PRN PRN Reason: OPIATERV Nystatin (Nystatin 100,000 Unit/Ml Udc 5 Ml) 100,000 unit PO QID [facility] Last Admin: 12/14/23 08:56 Dose: 100,000 unit Ondansetron HCl (Ondansetron 2 Mg/Ml Sdv 2 Ml) 4 mg IVP Q8H PRN PRN Reason: vomiting, or N/V if npo Pantoprazole Sodium (Pantoprazole 40 Mg Sdv) 40 mg IVP Q12H [facility] Last Admin: 12/14/23 05:32 Dose: 40 mg Saliva Substitute (Saliva Stimulant [place] 30 Ml Btl) 1 spray MUCOUS MEM Q2H PRN PRN Reason: DRYNESS Sucralfate (Sucralfate 1 Gm Tablet) 1 gm PO AC&BEDTIME [facility] Last Admin: 12/14/23 05:31 Dose: 1 gm Trazodone HCl (Trazodone 50 Mg Tablet) 25 mg PO BEDTIME [facility] Last Admin: 12/13/23 21:45 Dose: 25 mg Vitals/I&O/Wt Last Vital Signs Temp 97.4 F L 12/14/23 03:48 Pulse 51 L 12/14/23 07:43 Resp 16 12/14/23 07:43 BP 110/64 12/14/23 07:04 Pulse Ox 97 12/14/23 07:43 O2 Del Method Nasal Cannula 12/14/23 07:43 O2 Flow Rate 2 12/14/23 07:43 12/13/23 12/14/23 12/14/23 22:59 06:59 14:59 Intake Total 1400 / 1930 300 / 2230 Output Total 450 / 450 850 / 1300 340 / 340 Balance 950 / 1480 -550 / 930 -340 / -340 Weight last 48 hrs Weight 211 lb 3.2 oz Weight 222 lb 8 oz Physical Exam Narrative: GENERAL: The patient is alert and oriented times three. Not in any acute distress. HEENT: No significant pallor, icterus or lymphadenopathy.Oral cavity: There are no mucous membrane lesions. NECK: Trachea appears to be central. No masses noted. No JVD or thyromegaly appreciated. RESPIRATORY: Chest is symmetrical. No intercostals muscle retraction or any accessory muscle activation. There is no chest wall tenderness. Breath sounds are heard bilaterally. No rales or rhonchi heard. No evidence of any consolidation. BREASTS: Deferred. HEART: The heart sounds are normal. No S3 or S4. Short systolic murmur in the lower sternal border .No pericardial rub ABDOMEN: No vessel pulsations or distention. No tenderness. No organomegaly appreciated. Bowel sounds are normally heard. : Deferred. RECTAL: Deferred. LYMPHATIC: No lymphadenopathy noted in the neck. EXTREMITIES: Open debrided wound on the lower anterolateral aspect of the right leg. Some healing ulcers on the left leg. 1+ edema of both lower extremities. MUSCULOSKELETAL: No acute joint deformities or swelling SKIN: Some features of chronic venous stasis. No cyanosis. NEUROPSYCHIATRIC: The patient is alert and oriented x3. Appears to be in a good mood. No tremors or rigidity noted. Data 12/13/23 04:03 12/13/23 04:03 Other Labs: Laboratory Last Values WBC 23.57 10^3/uL (3.29-11.43) H 12/13/23 04:03 RBC 2.94 10^6/uL (3.85-5.65) L 12/13/23 04:03 Hgb 8.70 g/dL (11.27-16.99) L 12/13/23 04:03 Hct 27.8 % (37-53) L 12/13/23 04:03 MCV 94.6 fl (82-101) 12/13/23 04:03 MCH 29.6 pg (27-33) 12/13/23 04:03 MCHC 31.3 g/dL (30-55) 12/13/23 04:03 RDW 17.8 % (12.1-15.1) H 12/13/23 04:03 Plt Count 164 10^3/cmm (157-399) 12/13/23 04:03 MPV 11.2 fL (7.4-10.4) H 12/13/23 04:03 Neut % (Auto) 92.9 % 12/13/23 04:03 Lymph % (Auto) 2.4 % 12/13/23 04:03 [place] % (Auto) 4.0 % 12/13/23 04:03 Eos % (Auto) 0.0 % 12/13/23 04:03 Baso % (Auto) 0.0 % 12/13/23 04:03 Neut # (Auto) 21.87 10^3/uL (1.8-7.7) H 12/13/23 04:03 Lymph # (Auto) 0.6 10^3/uL (0.8-4.8) L 12/13/23 04:03 [place] # (Auto) 1.0 10^3/uL (0.2-0.9) H 12/13/23 04:03 Eos # (Auto) 0.0 10^3/uL (0.0-0.8) 12/13/23 04:03 Baso # (Auto) 0.0 10^3/uL (0.0-0.1) 12/13/23 04:03 Nucleated RBC % (auto) 0 % 12/13/23 04:03 Nucleated RBCs # 0.0 /100WBC 12/13/23 04:03 ESR 16 mm/hr (0-10) H 12/08/23 23:11 PT 14.00 SECONDS (12.1-14.9) 12/14/23 04:00 INR 1.05 (0.8-1.2) 12/14/23 04:00 APTT 31.3 SECONDS (23.9-36.7) 12/14/23 04:00 Sodium 134 mmol/L (136-145) L 12/13/23 04:03 Potassium 3.4 mmol/L (3.5-5.1) L 12/13/23 04:03 Chloride 89 mmol/L (98-107) L 12/13/23 04:03 Carbon Dioxide 33 mmol/L (22-29) H 12/13/23 04:03 Anion Gap 15.4 (5-19) 12/13/23 04:03 BUN 40 mg/dL (8-23) H 12/13/23 04:03 Creatinine 1.6 mg/dL (0.7-1.2) H 12/13/23 04:03 GFR Calculation 43.3 mL/min (90-130) L 12/13/23 04:03 Glucose 129 mg/dL (65-115) H 12/13/23 04:03 POC Glucose 105 mg/dL (70-110) 12/09/23 11:10 Calculated Osmolality 289 mOsm/kg (285-295) 12/13/23 04:03 Lactic Acid 1.3 mmol/L (0.5-2.2) 12/08/23 23:11 Calcium 8.2 mg/dL (8.5-10.5) L 12/13/23 04:03 Phosphorus 3.7 mg/dL (2.5-4.5) 12/13/23 04:03 Magnesium 2.5 mg/dL (1.7-2.3) H 12/13/23 04:03 Iron 72 ug/dL (59-158) 12/12/23 03:27 TIBC 189 mcg/dl 12/12/23 03:27 % Saturation 38.0 % (20-50) 12/12/23 03:27 Unsat Iron Binding 117 ug/dL (112-347) 12/12/23 03:27 Ferritin 484 ng/mL (30-400) H 12/12/23 03:27 Total Bilirubin 0.3 mg/dL (0.15-1.2) 12/13/23 04:03 AST 6 U/L (0-40) 12/13/23 04:03 ALT < 5 U/L (0-41) 12/13/23 04:03 Alkaline Phosphatase 80 U/L (40-130) 12/13/23 04:03 Troponin T 5th Gen ng/L 739 ng/L (0-15) H* 12/10/23 20:31 Troponin T Baseline 984 ng/L (0-15) H* 12/09/23 08:36 Troponin T 120 Minute 986.0 ng/L (0-15) H 12/09/23 10:44 Delta Troponin T 2.0 ABS# (0-10) 12/09/23 10:44 Troponin T Hi Sens 6Hr 1025 ng/L (0-15) H 12/09/23 14:24 Troponin T Hi Sens 6Hr Delta 41 ng/L (0-12) H* 12/09/23 14:24 C-Reactive Protein 29.9 mg/L (0.0-4.9) H 12/08/23 23:11 NT-Pro-B Natriuret Pep 4364 pg/mL (0-125) H 12/11/23 03:15 Total Protein 5.0 g/dL (6.6-8.7) L 12/13/23 04:03 Albumin 3.4 g/dL (3.5-5.2) L 12/13/23 04:03 Globulin 1.6 g/dL (1.3-4.6) 12/13/23 04:03 Triglycerides 102 mg/dL (0-150) 12/12/23 03:27 Cholesterol 129 mg/dL (0-200) 12/12/23 03:27 LDL Cholesterol, Calc 67 mg/dL (50-129) 12/12/23 03:27 HDL Cholesterol 42 mg/dL (60-100) L 12/12/23 03:27 LDL/HDL Ratio 1.60 RATIO (0.00-3.22) 12/12/23 03:27 Cholesterol/HDL Ratio 3.07 mg/dL (1.0-5.00) 12/12/23 03:27 Vitamin B12 711 pg/mL (232-1245) 12/12/23 03:27 Folate 5.2 ng/mL (4.5-32.2) 12/12/23 03:27 Procalcitonin 0.22 ng/mL (0-0.5) 12/08/23 23:11 TSH 2.64 uIU/mL (0.27-4.20) 12/09/23 08:36 Free T4 1.11 ng/dL (0.82-1.77) 12/09/23 08:36 Urine Color Yellow (Yellow) 12/08/23 23:17 Urine Appearance Cloudy (CLEAR) A 12/08/23 23:17 Urine pH 6.5 (5-7) 12/08/23 23:17 Ur Specific [place] 1.005 (1.005-1.030) 12/08/23 23:17 Urine Protein Trace (Negative) 12/08/23 23:17 Urine Glucose (UA) Trace (Normal) H 12/08/23 23:17 Urine Ketones Negative (Negative) 12/08/23 23:17 Urine Blood 3+ (Negative) H 12/08/23 23:17 Urine Nitrate Negative (Negative) 12/08/23 23:17 Urine Bilirubin Neg (Negative) 12/08/23 23:17 Urine Urobilinogen Neg mg/dL (Negative) 12/08/23 23:17 Ur Leukocyte Esterase 2+ (Negative) H 12/08/23 23:17 Urine RBC 15-25 /hpf (0-2) H 12/08/23 23:17 Urine WBC 25-40 /hpf (0-5) H 12/08/23 23:17 Ur Squamous Epith Cells None /hpf (0-5) 12/08/23 23:17 Amorphous Sediment Not Reportable 12/08/23 23:17 Urine Bacteria 3+ /hpf (NONE) H 12/08/23 23:17 Urine Mucus 2+ /hpf 12/08/23 23:17 Vancomycin Trough 20.6 ug/mL (10-15) H 12/12/23 21:34 C. difficile (PCR) Negative (Negative) 12/12/23 23:25 Blood Type AB Negative 12/11/23 11:20 Rho(D) Type Negative 12/11/23 11:20 Antibody Screen Negative 12/11/23 11:20 Crossmatch See Detail 12/11/23 11:20 Micro: Microbiology 12/08/23 23:58 Blood Culture - Final Blood NO GROWTH AFTER 5 DAYS 12/13/23 14:49 Occult Blood (FIT) - Final Stool Routine Collection 12/12/23 13:30 Blood Culture - Preliminary Blood NEGATIVE TO DATE 12/12/23 13:26 Blood Culture - Preliminary Blood NEGATIVE TO DATE 12/08/23 23:17 Urine Culture - Preliminary Urine,Clean Catch Escherichia coli Strep species, gamma-hemolytic A&P Assessment and plan (1) Hypotension: Currently resolved. Continue on the current medications Qualifiers: Hypotension type: other hypotension type Qualified Code(s): I95.89 - Other hypotension (2) Atrial fibrillation with RVR: Currently the patient is in sinus rhythm. Patient may continue on the p.o. amiodarone. Also may continue the low-dose of beta-garrick. (3) Elevated troponin: Most likely this patient had a type I NE. We may consider a cardiac catheterization after treating the infection appropriately with the current antibiotics (4) CHF (congestive heart failure), NYHA class III: Patient seems to have significant drop in the LV ejection fraction from 27th of last month. The current ejection fraction is around 40 to 45% by echocardiogram. He has multiple wall motion normalities. He requires a cardiac catheterization to further evaluate his coronary status and decide on further management. Qualifiers: Congestive heart failure type: systolic Congestive heart failure chronicity: chronic Qualified Code(s): I50.22 - Chronic systolic (congestive) heart failure (5) NSVT (nonsustained ventricular tachycardia): Started on p.o. amiodarone as mentioned above (6) Gastric ulcer: Continue the current management. No evidence of any active bleed Qualifiers: Gastric ulcer chronicity: unspecified ulcer chronicity Gastric ulcer complication status: without hemorrhage or perforation Qualified Code(s): K25.9 - Gastric ulcer, unspecified as acute or chronic, without hemorrhage or perforation (7) ALTA (acute kidney injury): The BUN/creatinine levels are stable at this time. (8) Anemia associated with acute blood loss: Fairly stable (9) Neutrophilic leukocytosis: The worsening leukocytosis is a concern. (10) Pancreatitis: This may need to be further evaluated. Qualifiers: Chronicity: acute Pancreatitis type: unspecified pancreatitis type Acute pancreatitis complication: unspecified Qualified Code(s): K85.90 - Acute pancreatitis without necrosis or infection, unspecified (11) Abnormal CT scan, bladder: This also need to be further evaluated. Plan Other problems are Vancomycin resistant enterococci in the blood. Persistent leukocytosis Possible colovesical fistula-undergoing investigation Necrotizing fasciitis, slow healing Patient may require GI and infectious disease input. Cardiac godinez he seems to be fairly stable at this point. Discussed with Dr. Marshall. Because of the multiple comorbidities, it may be appropriate to hold off on the angiogram till the other issues are properly addressed. Dr. Marshall is planning to transfer this patient to [facility] since we don't have these specialty services at this time. Attestations Medical Necessity Statement*: Disposition as per the primary. Coding Level of Care Code 21630 Diagnoses Other specified hypotension I95.89 Hypotension type: other hypotension type Atrial fibrillation with RVR I48.91 Elevated troponin R79.89 Chronic systolic congestive heart failure, NYHA class 3 I50.22 Congestive heart failure type: systolic Congestive heart failure chronicity: chronic NSVT (nonsustained ventricular tachycardia) I47.29 Gastric ulcer without hemorrhage or perforation, unspecified chronicity K25.9 Gastric ulcer chronicity: unspecified ulcer chronicity Gastric ulcer complication status: without hemorrhage or perforation ALTA (acute kidney injury) N17.9 Anemia associated with acute blood loss D62 Neutrophilic leukocytosis D72.9 Acute pancreatitis, unspecified complication status, unspecified pancreatitis type K85.90 Chronicity: acute Pancreatitis type: unspecified pancreatitis type Acute pancreatitis complication: unspecified Abnormal CT scan, bladder R93.41
[2023-12-14 09:48] LABS: Basophils % 0.1 %; Hematocrit 27.2 % (37-53); Lymphocytes # 0.6 10^3/uL (0.8-4.8); Lymphocytes % 2.3 %; Mean Corpuscular HGB Conc 31.3 g/dL (30-55); Mean Corpuscular Hemoglobin 30.8 pg (27-33); Mean Corpuscular Volume 98.6 fl (82-101); Mean Platelet Volume 11.5 fL (7.4-10.4); Monocytes # 0.6 10^3/uL (0.2-0.9); Monocytes % 2.3 %; Neutrophils # 25.18 10^3/uL (1.8-7.7); Neutrophils % 94.5 %; Nucleated Red Blood Cells % 0 %; Platelet Count 159 10^3/cmm (157-399); Red Blood Count 2.76 10^6/uL (3.85-5.65); Red Cell Distribution Width 17.6 % (12.1-15.1); White Blood Count 26.62 10^3/uL (3.29-11.43)
[2023-12-14 10:10] LABS: Alanine Aminotransferase < 5 U/L (0-41); Albumin Level 2.9 g/dL (3.5-5.2); Alkaline Phosphatase 83 U/L (40-130); Anion Gap 14.4 (5-19); Aspartate Amino Transferase 7 U/L (0-40); Blood Urea Nitrogen 43 mg/dL (8-23); Calcium 8.2 mg/dL (8.5-10.5); Carbon Dioxide 29 mmol/L (22-29); Chloride 88 mmol/L (98-107); Globulin 2.4 g/dL (1.3-4.6); Glomerular Filtration Rate 55.1 mL/min (90-130); Glucose 155 mg/dL (65-115); Lipase 51 U/L (13-60); Magnesium 2.6 mg/dL (1.7-2.3); Osmolality Calculated 278 mOsm/kg (285-295); Phosphorus 3.8 mg/dL (2.5-4.5); Potassium 4.4 mmol/L (3.5-5.1); Sodium 127 mmol/L (136-145); Total Bilirubin 0.4 mg/dL (0.15-1.2); Total Protein 5.3 g/dL (6.6-8.7)
[2023-12-14 10:12] LABS: Creatinine Clr Calc Pharmacy 60.8174
[2023-12-14] MEDS: ALPRAZolam 0.5 mg Tablet PO (11:16)
[2023-12-14] MEDS: cefTRIAXone 2,000 MG in sodium chloride 0.9% (plus) 50 ML 100 MG IV (12:09)
--- NOTE | 2023-12-14 16:48 | P.DS_ITS ---
Discharge Providers Date of Admission: 12/09/23 00:05 Date of Discharge: December 14, 2023 Attending Provider at Admission: Bernadette Metcalf MD Attending Provider at Discharge: Ayaka Cox MD Primary Care Provider: Jason Harper DO Diagnoses at Discharge Discharge Diagnosis (1) Sepsis: Status: Acute Qualifiers: Sepsis acute organ dysfunction status: unspecified Sepsis type: sepsis due to unspecified organism Qualified Code(s): A41.9 - Sepsis, unspecified organism Reason for Visit Reason for Visit: SYNCOPE Hospital Course Hospital Course Mr. Herrmann is a 68yo man w/ chronic HFpEF, COPD, Chronic hypoxic respiratory failure on 2-4L NC O2 w/ exertion and 2L NC O2 while at rest or at night, who was brought from the senior living on the night of 12/08/2023 for an episode of Syncope. He was hospitalized here at [facility] from 11/11/2023 for R. lower extremity Necrotizing Fascitis due to MSSA, Grp A strep, & Enterobacter cloacae s/p debridement on 11/14 & 11/21/2023 and Acute blood loss anemia s/p EGD on 11/12/2023 showing gastric ulcers. He was managed w/ Vanc/Meropenem & Clindamycin while hospitalized. He was d/c'ed to a SNF on 11/27/2023 with IV Cefazolin and a LUE PICC line. He completed the abx on 12/05/2023. On presentation, he was in new onset Afib w/ RVR in the ED and was hypotensive. He was given an Amiodarone bolus in the ED and started on Amiodarone drip. BCx and UCx were ordered. He was empirically given Vanc/Zosyn in the ED for a possible UTI. On admission, he met criteria for Sepsis. Amiodarone drip was contd and he was started on Ceftriaxone. He was in acute COPD exacerbation on admission, so Solumedrol & Azithromycin were added. He was also in acute on chronic HFpEF(TTE on 11/15/2023 shows EF of 72% w/no wall motion abnormalities, and mild tricuspid regurg), so he was given a low dose of Lasix 20mg IVP x 1. Work up for his Afib w/ RVR showed concern for NSTEMI based on high-sensitivity Trop T of >1000. His TSH & free T4 were 2.64 and 1.11 on 12/09 respectively. Given persistent episodes of hypotension, and patient remaining in A-fib with RVR, in the setting of elevated Trop T, the Fibre Optics Jointer was consulted. The Fibre Optics Jointer maintained the patient on an Amiodarone drip and initiated low dose Metoprolol tartrate was intiated. The patient converted into NSR around 9:30am on 12/12/2023 and was converted to po Amiodarone on 12/13/2023. A limited TTE was done on 12/11 that showed a new EF of 40-45% w/ moderate diffuse hypokinesis of the septal and inferior wall segments and mild biatrial enlargement. Cardiology planned to an Angiogram on 12/15. Per nursing staff he had bloody BMs on 12/12/2023; however, given Cardiology's concern for a Cardiac event, he was started on heparin drip. He had frankly bloody BMs that I witnessed on , so I d/c'ed the heparin drip. Furthermore, on admission, he quickly developed vol overload, Acute on chronic heart failure. Although he responded to Lasix, developed an ALTA, likely a result of the pre-renal insults to his kidneys. On admission, his UCx quickly grew gamma hemolytic strep (Speciation/sensitivities pending). He was Vancomycin was added to the Vanc/Ceftriaxone & Ceftriaxone was switched to Meropenem. His UCx quickly grew gamma hemolytic strep (Speciation/sensitivities pending) and E. coli resistant to Amoxicillin. One out of 4 BCx on 12/12/2023 was positive for VRE faecium, so BCx were repeated on 12/12/2023, he was switched to Linezolid and Ceftriaxone. The PICC line was not pulled until 12/13/2023, and its tip was sent for Cx. There was concern by the nursing staff that the patient had a Colovesical fistula given that his urine had been persistently been brown w/ chunks and that it smelled like diarrhea. A CT abd/pelvis w/ oral contrast was done on 12/13/2023 that did not rule out a Colovesical fistula, but it did show multifocal peripancreatic abnormalities concerning for sequelae of pancreatitis. An MRI was recommended for further assessment. When the patient was asked about this, he denied any history of abdominal pain. Given these CT findings and his worsening leukocytosis despite being on Linezolid, the decision was made to transfer him to [facility] in [place], [place], where he would have access to Infectious Disease service, GI, Cardiology, NEphrology, and possibly Urology. Dr. Edmondson of [facility] accepted the patient. Of note, on admission, there was concern that he had diarrhea prior to coming from the [facility]. He did not have multiple episodes of diarrhea at the long-term. Of note, he was to be seen by the Gen Surgeon, Dr. Cummings, on 12/10/2023 for skin grafting of his R. LE wound. Dr. Cummings was notified that the patient was hospitalized. Finally, the patient developed some anxiety related to his illnesses. I started him on 0.5mg TID prn of Xanax w/ the understanding that he would not be discharged on it, and he is in agreement. PLAN #Questionable Syncope: Patient adamantly denies that he had an episode of syncope #New onset Afib w/ RVR: - due to hypotension, he was given Amiodarone bolus in the ED and started on Amiodarone drip. - Cardiology consulted on 12/09. On Amiodarone drip and Metoprolol tartrate - TSH wnl. - Limited ECHO on 12/11/2023 showed an EF of 40-45% w/ moderate diffuse hypokinesis of the septal and inferior wall segments and mild biatrial enlargement. #NSTEMI I - Consulted Cardiology. - Started ACS protocol based on elevated Trop T, but given concerns about the patient's hx of a recent GI bleed, d/c'ed full dose lovenox. - Will continued to hold initiation of full dose Lovenox. Will also hold aspirin. #NSVT #HTN: No acute issues at this time. #Acute on chronic HFrEF: - TTE on 11/15 shows EF of 72% w/no wall motion abnormalities, and mild tricuspid regurg. - Limited ECHO on 12/11/2023 showed an EF of 40-45% w/ moderate diffuse hypokinesis of the septal and inferior wall segments and mild biatrial enlargement. - Cardiology following. #Vol overload to the point that his skin was weeping all over. - s/p Lasix 20mg IVP x 1 on admission. Strict Is & Os. - s/p Lasix, albumin, acetazolamide, and metolazone on 12/10. Held Lasix on 12/11. - Give another dose of Lasix 40mg IV and albumin x 1 on 12/12. - I have encouraged the patient to be vigilant about his po intake. #Sepsis #Leukocytosis #VRE faecium Bacteremia: Source is possible colovesical fistula - 10/23 BCx ordered in the ED on 12/08 showed VRE faecium - BCx from PICC line done on 12/09 is negative. - Based on discussion with ID who was not air support operations operator on 12/12/2023, I d/c'ed the PICC line on 12/12, repeated BCx on 12/12, and started Linezolid and Ceftriaxone on 12/12 w/ plan to repeat BCx on 12/14. -CT abd/pelvis w/o IV contrast but with oral contrast did not r/o colovesical fistula on CT #Amoxicillin resistant UTI and Gamma hemolytic Strep: - Possibly due to - s/p Vanc/Zosyn in the ED. Ceftriaxone started on admission. Added Vanc on 12/09/2023. D/c'ed Ceftriaxone on 12/10 and started Meropenem. D/c'ed Meropenem on 12/12 and started Ceftriaxone. #Diarrhea: He only had one episode in the long-term. Less likelihood that he had C. diff. #ALTA: multifactorial. Due to episodes of hypotension from his Sepsis and Afib and Lasix - Will consider Nephrology consult. #Hyponatremia: Likely hypervolemic at this time. Improving. Monitor renal function. # Acute COPD exacerbation: On duonebs. Added Solumedrol on 12/09 & he has completed 5 days. Started Azithromycin po on 12/11. Last dose on 12/15/2023. #Chronic hypoxic respiratory failure on 2-4L NC O2 w/ exertion and 2L NC O2 while at rest or at night. #R. lower extremity wound - due to R. LE Necrotizing fascitis due to MSSA, Grp A strep, & Enterobacter cloacae - completed IV Cefazolin on 12/03/2023 - Plan was o f/u w/ Gen surg this week to evaluate for skin grafting. - Consulted Surgeon Dr. Ortega on 12/09, who provided wound care recs. Courtesy notified Dr. Cummings of his hospitalization on 12/12/2023. #Anxiety: Started Xanax 0.5mg TID prn. He is worried about taking something that can cause addiction, but I have told him that he will not be discharged on this medication. #Hematochezia - Bloody BM noted on 12/12 & 12/13. Will D/c Heparin drip and consult Gen Surg in the AM of 12/14/2023 #Anemia: likely of chronic disease. Iron sat of 38% & Ferritin of 484 on 12/12/2023. #Gastric ulcers: - noted on 11/12/2023 EGD. Continue PPI BID & Sucralfate #Constipation: Lactulose 30gm x 1 on 12/11. #Acute gout: Not an acute issue at this time. DVT ppx: SCD on L. leg. Physical Exam Const: GENERAL APPEARANCE: cooperative, comfortable and well kempt NUTRITIONAL APPEARANCE: obese ORIENTATION/CONSCIOUSNESS: Yes awake, Yes oriented to person, Yes oriented to place and Yes oriented to time HENMT: COMMON NORMALS: normocephalic, atraumatic and external ears normal HEAD & SCALP: normocephalic and atraumatic EXTERNAL EAR: Yes external ears normal MOUTH: Normal oral and palatal mucosa present THROAT: posterior oropharynx normal Eye: COMMON NORMALS: Equal, round and reactive pupils present PUPIL: Yes Equal, round and reactive pupils present EOM: No EOM abnormal Neck/C-Spine: COMMON NORMALS: Thyroid normal GENERAL: Yes normal visual inspection, Yes trachea midline and Yes anterior neck swelling THYROID: Thyroid normal CAROTIDS: No bruit CERVICAL SPINE: Yes cervical ROM normal Lymph: LYMPHATIC: No no lymphedema noted and lymphadenopathy Chest: CHEST: Yes abnormal inspection of the chest, Yes Symmetrical chest wall rise and Yes laceration Resp: OTHER: B/l expiratory wheezes w/ barely audible breath sounds in the b/l lower lung bases. Cardio: OTHER: irregular rate and rhythm. It is difficult to appreciate any murmurs, rubs, or gallops, given the noise in the room. GI: OTHER: BS+, nontender, nondistended, no guarding, no rigidity, no rebound tenderness, no organomegaly. Extremity: GENERAL: No clubbing, No cyanosis and No edema Neuro: SENSORIUM/ORIENTATION: Yes oriented to person, Yes oriented to place and Yes oriented to time Psych: COMMON NORMALS: speech normal APPEARANCE: Yes well kempt ATTITUDE: Yes calm and Yes engaged SPEECH: Yes normal speech MOOD & AFFECT: Yes euthymic mood Skin: COMMON NORMALS: no rashes or lesions noted GENERAL SKIN EXAM: no rashes or lesions noted Discharge Data Studies Completed and Pending Completed Studies During Hospitalization Category Date Time Status CT abdomen pelvis wo con [id number] Routine Cat Scan 12/13/23 09:[address] head wo con* [id number] Stat Cat Scan 12/08/23 23:02 Completed XR chest 1V portable [id number] Stat Exams 12/08/23 23:02 Completed CV. echo limited [id number] Urgent Ultrasound 12/09/23 12:24 Completed Pending at discharge Category Date Time Status Blood Culture Stat Lab 12/12/23 13:30 Results CBC Auto Diff [Complete Blood Count w/Auto] AM LABS Lab 12/15/23 04:00 Ordered CBC Auto Diff [Complete Blood Count w/Auto] AM LABS Lab 12/16/23 04:00 Ordered CBC Auto Diff [Complete Blood Count w/Auto] AM LABS Lab 12/17/23 04:00 Ordered CMP [Comprehensive Metabolic Panel] AM LABS Lab 12/15/23 04:00 Ordered CMP [Comprehensive Metabolic Panel] AM LABS Lab 12/16/23 04:00 Ordered CMP [Comprehensive Metabolic Panel] AM LABS Lab 12/17/23 04:00 Ordered Catheter Tip Culture Routine Lab 12/13/23 10:15 Results Magnesium AM LABS Lab 12/15/23 04:00 Ordered Magnesium AM LABS Lab 12/16/23 04:00 Ordered Magnesium AM LABS Lab 12/17/23 04:00 Ordered PTT [Partial Thromboplastin Time] AM LABS Lab 12/15/23 04:00 Ordered PTT [Partial Thromboplastin Time] AM LABS Lab 12/16/23 04:00 Ordered Phosphorus AM LABS Lab 12/15/23 04:00 Ordered Prothrombin Time INR AM LABS Lab 12/15/23 04:00 Ordered Prothrombin Time INR AM LABS Lab 12/16/23 04:00 Ordered Radiology Impressions Chest X-Ray 12/08/23 23:02 IMPRESSION: Improving infiltrates with basilar predominance since the previous study. No new acute finding. Head CT 12/08/23 23:02 IMPRESSION: No acute intracranial abnormality. Abdomen/Pelvis CT 12/13/23 09:00 IMPRESSION: 1. Interval appearance of new multifocal peripancreatic abnormalities as well as adjacent lesions extending into the gastrohepatic ligament and right lower retroperitoneum most likely representing sequelae pancreatitis. Given likely component of evolving pseudocyst formation contrast-enhanced study or MRI recommended for further assessment. 2. Gallstone. 3. Layering debris in the urinary bladder including a more focal hyperdensity suggesting intraluminal bladder calculus. Air is also present in the urinary bladder possibly related to prior Love placement although fistula can not be excluded. No discrete fistula demonstrated. 4. Bibasilar airspace disease and atelectasis with small effusions. Laboratory Results WBC 26.62 10^3/uL (3.29-11.43) H 12/14/23 09:32 RBC 2.76 10^6/uL (3.85-5.65) L 12/14/23 09:32 Hgb 8.50 g/dL (11.27-16.99) L 12/14/23 09:32 Hct 27.2 % (37-53) L 12/14/23 09:32 MCV 98.6 fl (82-101) 12/14/23 09:32 MCH 30.8 pg (27-33) 12/14/23 09:32 MCHC 31.3 g/dL (30-55) 12/14/23 09:32 RDW 17.6 % (12.1-15.1) H 12/14/23 09:32 Plt Count 159 10^3/cmm (157-399) 12/14/23 09:32 MPV 11.5 fL (7.4-10.4) H 12/14/23 09:32 Neut % (Auto) 94.5 % 12/14/23 09:32 Lymph % (Auto) 2.3 % 12/14/23 09:32 Gray % (Auto) 2.3 % 12/14/23 09:32 Eos % (Auto) 0.0 % 12/14/23 09:32 Baso % (Auto) 0.1 % 12/14/23 09:32 Neut # (Auto) 25.18 10^3/uL (1.8-7.7) H 12/14/23 09:32 Lymph # (Auto) 0.6 10^3/uL (0.8-4.8) L 12/14/23 09:32 Gray # (Auto) 0.6 10^3/uL (0.2-0.9) 12/14/23 09:32 Eos # (Auto) 0.0 10^3/uL (0.0-0.8) 12/14/23 09:32 Baso # (Auto) 0.0 10^3/uL (0.0-0.1) 12/14/23 09:32 Nucleated RBC % (auto) 0 % 12/14/23 09:32 Nucleated RBCs # 0.0 /100WBC 12/14/23 09:32 ESR 16 mm/hr (0-10) H 12/08/23 23:11 PT 14.00 SECONDS (12.1-14.9) 12/14/23 04:00 INR 1.05 (0.8-1.2) 12/14/23 04:00 APTT 31.3 SECONDS (23.9-36.7) 12/14/23 04:00 Sodium 127 mmol/L (136-145) L 12/14/23 09:32 Potassium 4.4 mmol/L (3.5-5.1) 12/14/23 09:32 Chloride 88 mmol/L (98-107) L 12/14/23 09:32 Carbon Dioxide 29 mmol/L (22-29) 12/14/23 09:32 Anion Gap 14.4 (5-19) 12/14/23 09:32 BUN 43 mg/dL (8-23) H 12/14/23 09:32 Creatinine 1.3 mg/dL (0.7-1.2) H 12/14/23 09:32 GFR Calculation 55.1 mL/min (90-130) L 12/14/23 09:32 Glucose 155 mg/dL (65-115) H 12/14/23 09:32 POC Glucose 105 mg/dL (70-110) 12/09/23 11:10 Calculated Osmolality 278 mOsm/kg (285-295) L 12/14/23 09:32 Lactic Acid 1.3 mmol/L (0.5-2.2) 12/08/23 23:11 Calcium 8.2 mg/dL (8.5-10.5) L 12/14/23 09:32 Phosphorus 3.8 mg/dL (2.5-4.5) 12/14/23 09:32 Magnesium 2.6 mg/dL (1.7-2.3) H 12/14/23 09:32 Iron 72 ug/dL (59-158) 12/12/23 03:27 TIBC 189 mcg/dl 12/12/23 03:27 % Saturation 38.0 % (20-50) 12/12/23 03:27 Unsat Iron Binding 117 ug/dL (112-347) 12/12/23 03:27 Ferritin 484 ng/mL (30-400) H 12/12/23 03:27 Total Bilirubin 0.4 mg/dL (0.15-1.2) 12/14/23 09:32 AST 7 U/L (0-40) 12/14/23 09:32 ALT < 5 U/L (0-41) 12/14/23 09:32 Alkaline Phosphatase 83 U/L (40-130) 12/14/23 09:32 Troponin T 5th Gen ng/L 739 ng/L (0-15) H* 12/10/23 20:31 Troponin T Baseline 984 ng/L (0-15) H* 12/09/23 08:36 Troponin T 120 Minute 986.0 ng/L (0-15) H 12/09/23 10:44 Delta Troponin T 2.0 ABS# (0-10) 12/09/23 10:44 Troponin T Hi Sens 6Hr 1025 ng/L (0-15) H 12/09/23 14:24 Troponin T Hi Sens 6Hr Delta 41 ng/L (0-12) H* 12/09/23 14:24 C-Reactive Protein 29.9 mg/L (0.0-4.9) H 12/08/23 23:11 NT-Pro-B Natriuret Pep 4364 pg/mL (0-125) H 12/11/23 03:15 Total Protein 5.3 g/dL (6.6-8.7) L 12/14/23 09:32 Albumin 2.9 g/dL (3.5-5.2) L 12/14/23 09:32 Globulin 2.4 g/dL (1.3-4.6) 12/14/23 09:32 Triglycerides 102 mg/dL (0-150) 12/12/23 03:27 Cholesterol 129 mg/dL (0-200) 12/12/23 03:27 LDL Cholesterol, Calc 67 mg/dL (50-129) 12/12/23 03:27 HDL Cholesterol 42 mg/dL (60-100) L 12/12/23 03:27 LDL/HDL Ratio 1.60 RATIO (0.00-3.22) 12/12/23 03:27 Cholesterol/HDL Ratio 3.07 mg/dL (1.0-5.00) 12/12/23 03:27 Lipase 51 U/L (13-60) 12/14/23 09:32 Vitamin B12 711 pg/mL (232-1245) 12/12/23 03:27 Folate 5.2 ng/mL (4.5-32.2) 12/12/23 03:27 Procalcitonin 0.22 ng/mL (0-0.5) 12/08/23 23:11 TSH 2.64 uIU/mL (0.27-4.20) 12/09/23 08:36 Free T4 1.11 ng/dL (0.82-1.77) 12/09/23 08:36 Urine Color Yellow (Yellow) 12/08/23 23:17 Urine Appearance Cloudy (CLEAR) A 12/08/23 23:17 Urine pH 6.5 (5-7) 12/08/23 23:17 Ur Specific [place] 1.005 (1.005-1.030) 12/08/23 23:17 Urine Protein Trace (Negative) 12/08/23 23:17 Urine Glucose (UA) Trace (Normal) H 12/08/23 23:17 Urine Ketones Negative (Negative) 12/08/23 23:17 Urine Blood 3+ (Negative) H 12/08/23 23:17 Urine Nitrate Negative (Negative) 12/08/23 23:17 Urine Bilirubin Neg (Negative) 12/08/23 23:17 Urine Urobilinogen Neg mg/dL (Negative) 12/08/23 23:17 Ur Leukocyte Esterase 2+ (Negative) H 12/08/23 23:17 Urine RBC 15-25 /hpf (0-2) H 12/08/23 23:17 Urine WBC 25-40 /hpf (0-5) H 12/08/23 23:17 Ur Squamous Epith Cells None /hpf (0-5) 12/08/23 23:17 Amorphous Sediment Not Reportable 12/08/23 23:17 Urine Bacteria 3+ /hpf (NONE) H 12/08/23 23:17 Urine Mucus 2+ /hpf 12/08/23 23:17 Vancomycin Trough 20.6 ug/mL (10-15) H 12/12/23 21:34 C. difficile (PCR) Negative (Negative) 12/12/23 23:25 Blood Type AB Negative 12/11/23 11:20 Rho(D) Type Negative 12/11/23 11:20 Antibody Screen Negative 12/11/23 11:20 Crossmatch See Detail 12/11/23 11:20 Vitals Last Vital Signs Temp 96.5 F L 12/14/23 16:00 Pulse 63 12/14/23 16:00 Resp 14 12/14/23 16:21 BP 122/69 12/14/23 16:00 Pulse Ox 94 12/14/23 16:21 O2 Del Method Nasal Cannula 12/14/23 16:00 O2 Flow Rate 2 12/14/23 07:43 Discharge Plan Discharge Patient Disposition: Xfer Short-Term Hosp Condition: Stable Prescriptions: No Action Breztri Aerosphere 160-9-4.8 mcg/actuation HFA aerosol inhaler 2 inh INHALATION BID Qty: 10.7 5RF albuterol sulfate [ProAir HFA] 90 mcg/actuation Hfa Aerosol Inhaler 2 puff INHALATION Q6H PRN (Reason: Shortness Of Breath) fluticasone propionate 50 mcg/actuation Capulin,Suspension 1 spray INTRANASAL DAILY@07 Rx Instructions: administer into each nostril nystatin 100,000 unit/mL Suspension 100,000 unit PO QID 30 Days Qty: 120 0RF Rx Instructions: @09:00,12:00,17:00,21:00 trazodone 50 mg Tablet 25 mg PO BEDTIME Qty: 30 0RF sucralfate 1 gram Tablet 1 g PO AC&BEDTIME 30 Days Qty: 120 0RF lidocaine 5 % Adhesive Patch,Medicated 1 patch topical [id number] Qty: 14 0RF prednisone 10 mg tablet See Taper PO DIRECTED Qty: 42 0RF Taper: predniSONE 60-10 60 mg Daily for 2 Days and 0 Hour 50 mg Daily for 2 Days and 0 Hour 40 mg Daily for 2 Days and 0 Hour 30 mg Daily for 2 Days and 0 Hour 20 mg Daily for 2 Days and 0 Hour 10 mg Daily for 2 Days and 0 Hour Rx Instructions: see taper instructions metoprolol tartrate 50 mg tablet 50 mg PO BID Qty: 90 5RF metoclopramide HCl [Reglan] 5 mg tablet 5 mg PO DAILY Qty: 30 0RF Lasix 40 mg Tablet 40 mg PO BID Prilosec 40 mg Capsule,Delayed Release(Dr/Ec) 40 mg PO BID@08,18 Lasix 40 mg Tablet 40 mg PO .STAT ONE TIME DOSE Rx Instructions: STAT ONE TIME DOSE ON 12/04/23 tramadol 50 mg Tablet 50 mg PO Q6H PRN (Reason: Pain) Milk of Magnesia 400 mg/5 mL Suspension 30 ml PO DAILY PRN (Reason: Constipation) Dulcolax (bisacodyl) 10 mg Suppository 10 mg VA DAILY PRN (Reason: Constipation) Fleet Enema 19-7 gram/118 mL Enema 118 ml VA DAILY PRN (Reason: Constipation) Calcium 500 500 mg calcium (1,250 mg) Tablet,Chewable 1,000 mg PO Q4H PRN (Reason: UNKNOWN) alum-mag hydroxide-simeth 400-400-40 mg/5 mL Suspension 10 ml PO Q4H PRN (Reason: Indigestion) oxycodone 5 mg Tablet 5 mg PO Q6H PRN (Reason: Pain, Moderate) Pro-Stat 101 15-101 gram-kcal/30 mL Liquid See Rx Instructions .ROUTE .COMPLEX Rx Instructions: 30 ML PO BID Discharge Orders: Transfer Out of Facility (Order); Ordered 12/14/23 Ordered By: Ayaka Cox Referrals: [facility] [Outside] Jason Harper DO [Primary Care Provider] - Patient Instructions: Heart Failure (DC), CHF Stoplight, Opioid Safety Discharge Attestations Time Spent in Discharge Care*: greater than 30 min Status at Discharge: Cognitive status at discharge: cognitively intact , Behavioral status at discharge: cooperative , Quality Metrics Clinical Quality Measures [ Acute Myocardial Infaction { Clinical Trial Participant: No; Contraindication to aspirin: None; Aspirin prescribed; Contraindication to statin: Other (GI bleed);}] Coding Level of Care Code Acute Code for Chg Fwd Diagnoses Sepsis, due to unspecified organism, unspecified whether acute organ dysfunction present A41.9 Sepsis acute organ dysfunction status: unspecified Sepsis type: sepsis due to unspecified organism
== END 2023-12-14 15:30 | disposition skilled nursing facility (03) | DRG 871 ==
LOC: ER 23:47 → ER IP 12-09 00:50 → CSU 12-09 07:49
PROVIDERS: Admitting Provider Student in an Organized Health Care Education/Training Program; Emergency Provider Emergency Medicine; PCP Family Medicine; Visit Provider Internal Medicine
DX: A41.9 Sepsis, unspecified organism (principal); I21.4 Non-ST elevation (NSTEMI) myocardial infarction; I50.23 Acute on chronic systolic (congestive) heart failure; K25.4 Chronic or unspecified gastric ulcer with hemorrhage; M72.6 Necrotizing fasciitis; J44.1 Chronic obstructive pulmonary disease with (acute) exacerbation; I47.20 Ventricular tachycardia, unspecified; E87.1 Hypo-osmolality and hyponatremia; N17.9 Acute kidney failure, unspecified; J96.11 Chronic respiratory failure with hypoxia; N39.0 Urinary tract infection, site not specified; Z16.11 Resistance to penicillins; L97.915 Non-pressure chronic ulcer of unspecified part of right lower leg with muscle involvement without evidence of necrosis; R65.20 Severe sepsis without septic shock; I48.91 Unspecified atrial fibrillation; I11.0 Hypertensive heart disease with heart failure; R19.7 Diarrhea, unspecified; D64.9 Anemia, unspecified; M10.9 Gout, unspecified; K59.00 Constipation, unspecified; B96.20 Unspecified Escherichia coli [E. coli] as the cause of diseases classified elsewhere; Z87.891 Personal history of nicotine dependence; Z98.890 Other specified postprocedural states
CPT/HCPCS: 36415; 36416; 36430; 36592; 70450; 71045; 74176; 80053; 80061; 80202; 81001; 82274; 82607; 82728; 82746; 82962; 83540; 83550; 83605; 83690; 83735; 83880; 84100; 84145; 84439; 84443; 84484; 85014; 85018; 85025; 85610; 85651; 85730; 86140; 86850; 86900; 86920; 87040; 87070; 87075; 87077; 87086; 87150; 87186; 87205; 87493; 93005; 93308; 94640; 96365; 96366; 96367; 96372; 96375; 96376; 97110; 97165; 97535; 99291; A4222; C9113; J0283; J0696; J1170; J1644; J1650; J1940; J2020; J2185; J2270; J2543; J2930; J3370; J3490; J7030; J7040; J7050; J7614; J7626; J7644; P9016; P9046; Q0144; Q9967

== ENCOUNTER → 2024-02-06 08:51 | Day surgery (SDC) | payer MEDICARE, MEDICAID, SELFPAY ==
--- NOTE | 2024-02-06 08:47 | XR_ITS ---
WS: [id number] Exam: XR chest 1V portable [id number] Date/Time of Exam: 02/06/2024 9:40 AM Reason For Exam: Post PICC insertion Comparison 12/08/2023. Bibasal infiltrates and plaque atelectasis noted. No pneumothorax. Small LEFT pleural effusion. Heart size is normal. A right-sided PICC line ends at the cavoatrial junction. The mediastinum is normal i n contour. Several lower RIGHT rib fractures noted with pleural thickening. IMPRESSION: 1. Right-sided PICC line in satisfactory position. 2. Mild infiltrates and plaque atelectasis in the bilateral lung bases. Small LEFT pleural effusion. 3. Several lower RIGHT rib fractures with pleural thickening. These may represent relatively recent f ractures.
[2024-02-06 08:58] VITALS: BP 89/49; PULSE 59; RESP 18; TEMP 36.3; O2SAT 95
--- NOTE | 2024-02-06 10:16 | PICC.NOTE ---
Right single lumen PICC placed to right brachial vein. Referred to vascular access nurse due to need for PICC replacement. Previous PICC to left arm unable to flush and [facility] removed line. Risks and benefits discussed and informed consent obtained from patient. Right arm assessed with right brachial vein measuring 3.2 mm, straight, and apparent best choice for placement. Using sterile technique and MST, right brachial vein accessed x 1 stick. Mid-arm circumference measured 10 cm from right AC 27 cm. Trimmed cath 40 cm with 0 cm external length noted. CXR shows tip in distal SVC, cavoatrial junction, in good position for use per radiologist. Line secured with stat-lock. Insertion site covered with Biopatch and TSM. Report packet given to patient to give to [facility]. julisa Painter from [facility], also notified to give packet to nursing.
== END ==
LOC: OPS 08:52
PROVIDERS: PCP Family Medicine; Visit Provider Internal Medicine
DX: J18.9 Pneumonia, unspecified organism (principal); R65.21 Severe sepsis with septic shock
CPT/HCPCS: 36573; 71045

== ENCOUNTER → 2024-02-10 09:45 | Outpatient (BNVA) | payer MEDICARE, MEDICAID, SELFPAY | PROVIDERS: PCP Family Medicine; Visit Provider Nurse Practitioner Family | DX: L02.415 Cutaneous abscess of right lower limb; S80.11XA Contusion of right lower leg, initial encounter; Z51.89 Encounter for other specified aftercare; X58.XXXA Exposure to other specified factors, initial encounter | CPT/HCPCS: 87070 ==

== ENCOUNTER → 2024-02-16 14:05 | Outpatient (BNVA) | payer MEDICARE, MEDICAID, SELFPAY | PROVIDERS: PCP Family Medicine; Visit Provider Nurse Practitioner Family | DX: I89.0 Lymphedema, not elsewhere classified (principal); L97.811 Non-pressure chronic ulcer of other part of right lower leg limited to breakdown of skin; S51.811D Laceration without foreign body of right forearm, subsequent encounter; S80.11XD Contusion of right lower leg, subsequent encounter; X58.XXXD Exposure to other specified factors, subsequent encounter | CPT/HCPCS: 11042; 97597; 97598; 99213 ==

== ENCOUNTER 2024-03-14 09:14 | Emergency (ER) | payer MEDICARE, MEDICAID, SELFPAY ==
[2024-03-14 09:16] VITALS: PULSE 66; RESP 18; TEMP 36.5; O2SAT 93
--- NOTE | 2024-03-14 09:21 | ECG_ITS ---
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 Measurements Intervals [place] Rate: 67 P: 50 NE: 180 QRS: -62 QRSD: 179 T: 66 QT: 502 QTc: 531 Interpretive Statements SINUS RHYTHM LEFT AXIS DEVIATION [QRS AXIS < -30] LEFT BUNDLE BRANCH BLOCK [120+ ms QRS DURATION, 80+ ms Q/S IN V1/V2, 85+ ms R IN I/aVL/V5/V6] Compared to ECG 12/12/2023 17:35:08 Left-axis deviation now present Left bundle-branch block now present T-wave abnormality no longer present Electronically Signed On 03-15-2024 8:32:38 CDT by Len Merida M.D. [id number]
[2024-03-14 09:22] VITALS: BP 98/53
--- NOTE | 2024-03-14 09:24 | XRR_ITS ---
PROCEDURE INFORMATION: Exam: XR Chest Exam date and time: 03/14/2024 9:54 AM Age: 68 years old Clinical indication: Shortness of breath; Additional info: SOB TECHNIQUE: Imaging protocol: Radiologic exam of the chest. Views: 1 view. COMPARISON: CR XR chest 1V portable [id number] 02/06/2024 9:46 AM FINDINGS: Lungs: Atelectatic/fibrotic changes both lung bases. Hyperinflated lungs. Pleural spaces: There is right pleural thickening. No pneumothorax. Heart/Mediastinum: Unremarkable. No cardiomegaly. Bones/joints: Moderate degenerative disease of bilateral acromioclavicular joints. There is demineralization of the visualized bones. Redemonstrated the displaced fracture of the lateral arch of the right 7th rib, right 8th rib and possible right 9th rib. XR/XR chest 1V portable [id number] IMPRESSION: Redemonstrated the right lower rib fractures with no pneumothorax. Similar bilateral lower lobe atelectasis with right pleural thickening.
--- NOTE | 2024-03-14 09:25 | ED_ITS ---
HPI - SOB/Dyspnea 2 General: Chief Complaint: Shortness of Breath/Dyspnea Stated Complaint: SOB Time Seen by Provider: 03/14/24 09:15 Source: patient and EMS Mode of arrival: EMS Limitations: no limitations History of Present Illness: HPI Narrative: 68-year-old male history of COPD CHF her e from [facility] is having increasing shortness of breath and cough this morning. States his cough has been productive he is typically on 3 L he was 82% at [facility] on 3 L he received Solu-Medrol breathing treatment and route he is 93% here on 4 L. He denies any fevers has no other complaints Associated symptoms: Deny abdominal pain, chest pain, fever(s), nausea or vomiting Review of Systems 2 Const: Denies: fever(s), chills, body aches or change in appetite ENMT: Denies: throat pain or dental pain Card: Denies: chest pain Resp: Reports: dyspnea and productive cough GI: Denies: abdominal pain, nausea, vomiting or diarrhea Musc: Denies: neck pain or back pain Skin/Breast: Denies: rash Neuro: Denies: headache(s) PFSH ED 2 PFSH: Medical History Necrotizing fasciitis Bacteremia Enterococcus as the cause of diseases classified elsewhere Pseudocyst of pancreas Non-pressure chronic ulcer of right calf with fat layer exposed NSVT (nonsustained ventricular tachycardia) Gastric ulcer Anemia associated with acute blood loss Smoker Esophageal dysmotility Legionella pneumonia CHF (congestive heart failure), NYHA class III LBBB (left bundle branch block) COPD (chronic obstructive pulmonary disease) HTN (hypertension) Surgical History No history of previous surgery Family History Other Hypertension Denies family history of Diabetes CAD (coronary artery disease) Clotting disorder Dementia Chronic kidney disease (CKD) Suicide Anesthesia complication Bleeding disorder Lung disease Cancer Stroke Social History Smoking and tobacco/nicotine status: former use of tobacco/nicotine Quit status (tobacco/nicotine): has quit using Alcohol intake: former Substance/Drug Use: current Other substance/drug use details: No inhalation. [facility]: [facility] Physical Exam 2 Const: COMMON NORMALS: patient oriented x3 GENERAL APPEARANCE: ill appearing HENMT: COMMON NORMALS: normocephalic and atraumatic HEAD & SCALP: n ormocephalic and atraumatic Eye: COMMON NORMALS: conjunctivae normal CONJUNCTIVA: Yes conjunctivae normal Neck/C-Spine: COMMON NORMALS: full ROM and supple Chest: COMMONS NORMALS: normal inspection of the chest and normal palpation of entire chest wall Resp: COMMON NORMALS: No retractions and No use of accessory muscles EFFORT & INSPECTION: Yes respiratory distress AUSCULTATION: crackles and rales Cardio: COMMON NORMALS: regular rate, regular rhythm and No murmurs present (Cardio) RATE: regular rate RHYTHM: regular rhythm Extremity: COMMON NORMALS: normal to inspection and full ROM Neuro: COMMON NORMALS: patient oriented x3, moves all extremities and no focal motor deficits Psych: COMMON NORMALS: mental status grossly normal, Normal thought process present and cooperative THOUGHT PROCESS: Normal thought process present Skin: COMMON NORMALS: no rashes or lesions noted and no wounds GENERAL SKIN EXAM: no rashes or lesions noted Course 2 Vital Signs: Vital signs: Vital Signs Temperature 97.7 F 03/14/24 09:16 Pulse Rate 72 03/14/24 11:06 Respiratory Rate 18 03/14/24 09:16 Blood Pressure 90/52 03/14/24 11:06 Pulse Oximetry 94 03/14/24 11:06 Oxygen Delivery Me thod Nasal Cannula 03/14/24 11:06 Oxygen Flow Rate 5 03/14/24 11:06 MDM - SOB/Dyspnea Medical Decision Making Patient presents here with shortness of breath likely has a pneumonia I strongly recommended admission he states he does not want to stay in the hospital he wants to go back to the alf and do oral antibiotics did give him an IV dose of antibiotics here we will prescribe Levaquin for home. He has medical decision-making capacity understands the risks and is going to sign out AMA. Medical Records I reviewed the patient's medical records. Lab Data I reviewed the patient's lab results. 03/14/24 09:39 03/14/24 09:39 Labs/Radiology: Radiology Impressions Chest X-Ray 03/14/24 09:24 IMPRESSION: Redemonstrated the right lower rib fractures with no pneumothorax. Similar bilateral lower lobe atelectasis with right pleural thickening. Laboratory Results WBC 12.87 10^3/uL (3.29-11.43) H 03/14/24 09:39 RBC 3.60 10^6/uL (3.85-5.65) L 03/14/24 09:39 Hgb 10.00 g/dL (11.27-16.99) L 03/14/24 09:39 Hct 33.3 % (37-53) L 03/14/24 09:39 MCV 92.5 fl (82-101) 03/14/24 09:39 MCH 27.8 pg (27-33) 03/14/24 09:39 MCHC 30.0 g/dL (30-55) 03/14/24 09:39 RDW 15.5 % (12.1-15.1) H 03/14/24 09:39 Plt Count 601 10^3/cmm (157-399) H 03/14/24 09:39 MPV 9.7 fL (7.4-10.4) 03/14/24 09:39 Neut % (Auto) 58.8 % 03/14/24 09:39 Lymph % (Auto) 19.5 % 03/14/24 09:39 Young % (Auto) 11.8 % 03/14/24 09:39 Eos % (Auto) 8.7 % 03/14/24 09:39 Baso % (Auto) 0.9 % 03/14/24 09:39 Neut # (Auto) 7.57 10^3/uL (1.8-7.7) 03/14/24 09:39 Lymph # (Auto) 2.5 10^3/uL (0.8-4.8) 03/14/24 09:39 Young # (Auto) 1.5 10^3/uL (0.2-0.9) H 03/14/24 09:39 Eos # (Auto) 1.1 10^3/uL (0.0-0.8) H 03/14/24 09:39 Baso # (Auto) 0.1 10^3/uL (0.0-0.1) 03/14/24 09:39 Nucleated RBC % (auto) 0 % 03/14/24 09:39 Nucleated RBCs # 0.0 /100WBC 03/14/24 09:39 PT 15.80 SECONDS (12.1-14.9) H 03/14/24 09:39 INR 1.22 (0.8-1.2) H 03/14/24 09:39 Sodium 131 mmol/L (136-145) L 03/14/24 09:39 Potassium 4.3 mmol/L (3.5-5.1) 03/14/24 09:39 Chloride 89 mmol/L (98-107) L 03/14/24 09:39 Carbon Dioxide 34 mmol/L (22-29) H 03/14/24 09:39 Anion Gap 12.3 (5-19) 03/14/24 09:39 BUN 12 mg/dL (8-23) 03/14/24 09:39 Creatinine 1.5 mg/dL (0.7-1.2) H 03/14/24 09:39 GFR Calculation 46.7 mL/min (90-130) L 03/14/24 09:39 Glucose 101 mg/dL (65-115) 03/14/24 09:39 Calculated Osmolality 272 mOsm/kg (285-295) L 03/14/24 09:39 Lactic Acid 2.3 mmol/L (0.5-2.2) H 03/14/24 09:39 Calcium 7.9 mg/dL (8.5-10.5) L 03/14/24 09:39 Total Bilirubin 0.3 mg/dL (0.15-1.2) 03/14/24 09:39 AST 80 U/L (0-40) H 03/14/24 09:39 ALT 65 U/L (0-41) H 03/14/24 09:39 Alkaline Phosphatase 100 U/L (40-130) 03/14/24 09:39 NT-Pro-B Natriuret Pep 2714 pg/mL (0-125) H 03/14/24 09:39 Total Protein 5.6 g/dL (6.6-8.7) L 03/14/24 09:39 Albumin 1.7 g/dL (3.5-5.2) L 03/14/24 09:39 Globulin 3.9 g/dL (1.3-4.6) 03/14/24 09:39 All radiology interpretation(s) finalized by discharge EKG Data EKG 1: I personally reviewed and interpreted this EKG as follows: EKG Interpretation Date: 03/14/24 EKG interpretation time: 09:21 Interpretation: nsr hr [address] elevation qrs 179 qtc 517 Discharge Plan Discharge Patient Disposition: Left Against Medical Advice Clinical Impression: Community acquired pneumonia COPD (chronic obstructive pulmonary disease) Qualifiers: COPD type: unspecified COPD Qualified Code(s): J44.9 - Chronic obstructive pulmonary disease, unspecified Condition: Stable Prescriptions: New levofloxacin 750 mg tablet 750 mg PO DAILY 7 Days Qty: 7 0RF No Action lidocaine HCl [Lidocaine Viscous] 2 % solution 1 applic topical ONCE Qty: 1 0RF atorvastatin 20 mg tablet 20 mg PO DAILY levalbuterol HCl 0.63 mg/3 mL solution for nebulization 0.63 mg inhalation Q6H PRN (Reason: Wheezing) sucralfate 1 gram tablet 1 g PO BID aspirin 81 mg tablet,delayed release (DR/EC) 81 mg PO DAILY alprazolam 0.5 mg tablet 0.5 mg PO BID PRN (Reason: Anxiety) potassium chloride 20 mEq tablet,ER particles/crystals 20 meq PO BID amiodarone 400 mg tablet 400 mg PO BID pantoprazole 40 mg tablet,delayed release (DR/EC) 40 mg PO BID budesonide 0.5 mg/2 mL suspension for nebulization 0.5 mg inhalation BID PRN (Reason: Wheezing) ipratropium bromide 0.02 % solution 0.5 mg inhalation Q6H tiotropium bromide [Spiriva with HandiHaler] 18 mcg capsule, w/inhalation device 1 cap inhalation DAILY metoprolol tartrate 37.5 mg tablet 37.5 mg PO BID lidocaine HCl [Lidocaine Viscous] 2 % solution 1 applic topical ONCE Qty: 1 0RF Eldertonic 3.6 mg-0.75 mg /15 mL liquid 15 ml PO .before meals lidocaine HCl [Lidocaine Viscous] 2 % solution 1 applic topical ONCE Qty: 1 0RF ondansetron HCl 4 mg tablet 8 mg PO Q8H lidocaine HCl [Lidocaine Viscous] 2 % solution 1 applic topical ONCE Qty: 1 0RF lidocaine HCl [Lidocaine Viscous] 2 % solution 1 applic topical ONCE Qty: 1 0RF lidocaine HCl [Lidocaine Viscous] 2 % solution 1 applic topical ONCE Qty: 1 0RF lidocaine HCl [Lidocaine Viscous] 2 % solution 1 applic topical ONCE Qty: 1 0RF Breztri Aerosphere 160-9-4.8 mcg/actuation HFA aerosol inhaler 2 inh INHALATION BID Qty: 10.7 5RF albuterol sulfate [ProAir HFA] 90 mcg/actuation Hfa Aerosol Inhaler 2 puff INHALATION Q6H PRN (Reason: Shortness Of Breath) trazodone 50 mg Tablet 25 mg PO BEDTIME Qty: 30 0RF furosemide [Lasix] 40 mg Tablet 40 mg PO BID omeprazole [Prilosec] 40 mg Capsule,Delayed Release(Dr/Ec) 40 mg PO BID@08,18 tramadol 50 mg Tablet 50 mg PO Q6H PRN (Reason: Pain) magnesium hydroxide [Milk of Magnesia] 400 mg/5 mL Suspension 30 ml PO DAILY PRN (Reason: Constipation) bisacodyl [Dulcolax (bisacodyl)] 10 mg Suppository 10 mg MT DAILY PRN (Reason: Constipation) calcium carbonate [Calcium 500] 500 mg calcium (1,250 mg) Tablet,Chewable 1,000 mg PO Q4H PRN (Reason: UNKNOWN) Referrals: Jason Harper DO [Primary Care Provider] - Coding Level of Care Code ED Supervisor [employer] for [employer]
[2024-03-14 09:49] LABS: Basophils # 0.1 10^3/uL (0.0-0.1); Basophils % 0.9 %; Eosinophils # 1.1 10^3/uL (0.0-0.8); Eosinophils % 8.7 %; Hematocrit 33.3 % (37-53); Lymphocytes # 2.5 10^3/uL (0.8-4.8); Lymphocytes % 19.5 %; Mean Corpuscular Hemoglobin 27.8 pg (27-33); Mean Corpuscular Volume 92.5 fl (82-101); Mean Platelet Volume 9.7 fL (7.4-10.4); Monocytes # 1.5 10^3/uL (0.2-0.9); Monocytes % 11.8 %; Neutrophils # 7.57 10^3/uL (1.8-7.7); Neutrophils % 58.8 %; Nucleated Red Blood Cells % 0 %; Platelet Count 601 10^3/cmm (157-399); Red Cell Distribution Width 15.5 % (12.1-15.1); White Blood Count 12.87 10^3/uL (3.29-11.43)
[2024-03-14 10:05] LABS: INR 1.22 (0.8-1.2)
[2024-03-14 10:18] LABS: Lactic Sepsis W/Reflex 2.3 mmol/L (0.5-2.2)
[2024-03-14] MEDS: levofloxacin-dextrose 5 % 750 MG/150 ML PREMIX 100 MG IV (10:24)
[2024-03-14 10:27] LABS: Alanine Aminotransferase 65 U/L (0-41); Albumin Level 1.7 g/dL (3.5-5.2); Alkaline Phosphatase 100 U/L (40-130); Blood Urea Nitrogen 12 mg/dL (8-23); Calcium 7.9 mg/dL (8.5-10.5); Carbon Dioxide 34 mmol/L (22-29); Chloride 89 mmol/L (98-107); Globulin 3.9 g/dL (1.3-4.6); Glomerular Filtration Rate 46.7 mL/min (90-130); Glucose 101 mg/dL (65-115); NT Pro B Type Natriuretic Pept 2714 pg/mL (0-125); Osmolality Calculated 272 mOsm/kg (285-295); Sodium 131 mmol/L (136-145); Total Bilirubin 0.3 mg/dL (0.15-1.2); Total Protein 5.6 g/dL (6.6-8.7)
[2024-03-14 10:36] LABS: Anion Gap 12.3 (5-19); Aspartate Amino Transferase 80 U/L (0-40); Creatinine Clr Calc Pharmacy 48.8822; Potassium 4.3 mmol/L (3.5-5.1)
[2024-03-14 11:06] VITALS: BP 90/52; PULSE 72; O2SAT 94
[2024-03-14 11:52] LABS: Reflex Lactate Order REFLEX LACTIC ORDERD
[2024-03-14 13:22] LABS: Lactic Acid level (Lactate) 1.1 mmol/L (0.5-2.2)
--- NOTE | 2024-03-14 14:28 | PC.NURSE ---
PT REFUSED FLUIDS AND ABX. PT STATES HE HAS THE RIGHT TO CHOOSE AND HE DOESNT WANT THEM. PT STATES HE WANTS PO ABX AND TO GO HOME. PT SIGNED AMA WAIVER.
== END 2024-03-14 14:00 | disposition left against medical advice (07) ==
PROVIDERS: Emergency Provider Emergency Medicine; PCP Family Medicine
DX: J44.0 Chronic obstructive pulmonary disease with (acute) lower respiratory infection (principal); J18.9 Pneumonia, unspecified organism; Z53.29 Procedure and treatment not carried out because of patient's decision for other reasons; Z79.82 Long term (current) use of aspirin; Z87.891 Personal history of nicotine dependence; I11.0 Hypertensive heart disease with heart failure; I50.9 Heart failure, unspecified
CPT/HCPCS: 36415; 71045; 80053; 83605; 83880; 85025; 85610; 87040; 93005; 96374; 99285; J1956

== ENCOUNTER 2024-04-20 12:38 | Outpatient (CLI) | payer MEDICARE, MEDICAID, SELFPAY ==
--- NOTE | 2024-04-20 12:47 | CTR_ITS ---
PROCEDURE INFORMATION: Exam: CT Abdomen Without Contrast Exam date and time: 04/20/2024 1:26 PM Age: 68 years old Clinical indication: Mass, lump, or swelling; Patient HX: Ruq protrusion, patient doesn't know how long he has had that. ; Additional info: Protruding area in ruq TECHNIQUE: Imaging protocol: Computed tomography of the abdomen without contrast. Radiation optimization: All CT scans at this facility use at least one of these dose optimization techniques: automated exposure control; mA and/or kV adjustment per patient size (includes targeted exams where dose is matched to clinical indication); or iterative reconstruction. COMPARISON: CT abdomen pelvis wo con [id number] 12/13/2023 2:09 PM RADIATION DOSE METRICS: Total DLP (mGy-cm): 515.88 FINDINGS: Lungs: Bilateral basal compressive atelectasis. There are multiple punctate pulmonary parenchymal calcifications, consistent with remote granulomatous organism exposure. Pleural spaces: Partially seen moderate bilateral pleural effusions. Liver: Focal fatty infiltration at the level of the falciform ligament. The liver is otherwise unremarkable. Gallbladder and biliary ducts: Single calcified gallstone is present, measuring up to 5 mm. The gallbladder is otherwise unremarkable. There is no evidence of biliary ductal dilation. Pancreas: There is diffuse, benign fatty infiltration of the pancreas. Known peripancreatic nodularities have overall decreased in size and volume, currently measuring 9 cm x 3.9 cm (previously 12.9 cm x 8.2 cm). The pancreas is otherwise unremarkable. Spleen: The spleen demonstrates punctate calcifications, consistent with remote granulomatous organism exposure. The spleen is otherwise unremarkable. Adrenal glands: The adrenal glands are normal. Kidneys and ureters: The kidneys are normal. Stomach and bowel: Diffuse colonic diverticulosis. There is submucosal fat deposition noted throughout the colon, a finding which has been previously described as the sequela of prior infectious/inflammatory process or increased body fat content. 4.8 cm x 3.3 cm x 4.2 cm intraluminal mass within the ascending colon at the level of the hepatic flexure. There is no evidence of intestinal obstruction. Intraperitoneal space: No free fluid, fluid collections, or pneumoperitoneum. Vasculature: The arterial vasculature demonstrates diffuse moderate atherosclerotic calcification. No aortic aneurysms. Lymph nodes: No concerning adenopathy. Bones/joints: Multilevel healed united and nonunited right rib fractures. There are healed left rib fractures. Mild multilevel degenerative changes of the spine, as manifested by multilevel anterior osteophytes and multilevel decrease in intervertebral disc space. No acute fracture, dislocation, or aggressive osseous lesion. Soft tissues: Intercostal hernia between the right 9th and 10th ribs, measuring 7.2 cm by 3 cm with partial herniation of the right hepatic lobe. There is a fat-containing umbilical hernia. CT/CT abdomen wo con [id number] IMPRESSION: 1. 4.8 cm x 3.3 cm x 4.2 cm intraluminal mass within the ascending colon at the level of the hepatic flexure. Very concerning for colonic carcinoma. Correlation with colonoscopy is advised. 2. Intercostal hernia between the right 9th and 10th ribs, measuring 7.2 cm by 3 cm with partial herniation of the right hepatic lobe. This can explain the patient's right upper quadrant protrusion. 3. Partially seen moderate bilateral pleural effusions. 4. Known peripancreatic nodularities have overall decreased in size and volume, currently measuring 9 cm x 3.9 cm (previously 12.9 cm x 8.2 cm). Etiology remains nonspecific.
== END 2024-04-20 12:39 | disposition home or self-care (01) ==
LOC: RAD 12:39
PROVIDERS: PCP Family Medicine; Visit Provider Internal Medicine
DX: D12.2 Benign neoplasm of ascending colon (principal); K45.8 Other specified abdominal hernia without obstruction or gangrene; J90 Pleural effusion, not elsewhere classified; J98.11 Atelectasis; J84.10 Pulmonary fibrosis, unspecified; K80.20 Calculus of gallbladder without cholecystitis without obstruction; K86.89 Other specified diseases of pancreas; D73.89 Other diseases of spleen; K57.90 Diverticulosis of intestine, part unspecified, without perforation or abscess without bleeding
CPT/HCPCS: 74150

== ENCOUNTER 2024-05-24 08:15 | Emergency (ER) | payer MEDICARE, MEDICAID, SELFPAY ==
[2024-05-24] VITALS (17 sets, daily range): BP systolic 81–137; BP diastolic 41–72; PULSE 81–107; RESP 16–96; TEMP 36.6; O2SAT 85–100; BMI 25.0
--- NOTE | 2024-05-24 08:20 | XR_ITS ---
WS: [id number] XR chest 1V portable [id number] REASON FOR EXAM: dyspnea/cough FINDINGS: Chest is unchanged compared to 03/14/2024. Moderate tortuosity of the thoracic aorta. Normal heart size. The lungs are hyperexpanded. 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 Chronic opacities in both lower lung bauman most compatible with atelectasis and chronic interstitial reticular thickening. Chronic small pleural effusions versus pleural thickening bilaterally most pro minent on the left. Old healing right rib fractures. XR/XR chest 1V portable [id number] IMPRESSION: Stable abnormal chest as above without acute or subacute abnormality.
--- NOTE | 2024-05-24 08:20 | ECG_ITS ---
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 Measurements Intervals [place] Rate: 105 P: 66 NE: 172 QRS: 61 QRSD: 174 T: 249 QT: 410 QTc: 544 Interpretive Statements SINUS TACHYCARDIA LEFT BUNDLE BRANCH BLOCK [120+ ms QRS DURATION, 80+ ms Q/S IN V1/V2, 85+ ms R IN I/aVL/V5/V6] Compared to ECG 03/14/2024 09:21:00 Sinus rhythm no longer present Left-axis deviation no longer present Electronically Signed On 05-24-2024 14:10:51 CDT by Andrade Guo M.D. [email or web address]
[2024-05-24] MEDS: ipratropium-albuterol 3 mL Neb INHALATION (08:38)
--- NOTE | 2024-05-24 08:58 | W.ED.SOB ---
HPI - SOB/Dyspnea General: Chief Complaint: Shortness of Breath/Dyspnea Stated Complaint: respp distress, n/v Time Seen by Provider: 05/24/24 08:17 History of Present Illness: HPI Narrative: 68-year-old male presents emergency room complaining of shortness of breath nausea and vomiting last couple of days. Patient has known history of colon cancer he has not yet began treatment. He has not been able to keep anything down. 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 NSVT (nonsustained ventricular tachycardia) Gastric ulcer Anemia associated with acute blood loss Smoker Esophageal dysmotility Legionella pneumonia CHF (congestive heart failure), NYHA class III LBBB (left bundle branch block) COPD (chronic obstructive pulmonary disease) HTN (hypertension) Surgical History No history of previous surgery Family History Other Hypertension Denies family history of Diabetes CAD (coronary artery disease) Clotting disorder Dementia Chronic kidney disease (CKD) Suicide Anesthesia complication Bleeding disorder Lung disease Cancer Stroke Social History Smoking and tobacco/nicotine status: former use of tobacco/nicotine Quit status (tobacco/nicotine): has quit using Alcohol intake: former Substance/Drug Use: current Other substance/drug use details: No inhalation. Housing: Detention Physical Exam Const: GENERAL APPEARANCE: cooperative ORIENTATION/CONSCIOUSNESS: Yes awake, Yes oriented to person, Yes oriented to place and Yes oriented to time HENMT: COMMON NORMALS: normocephalic, atraumatic and hearing grossly normal bilaterally HEAD & SCALP: normocephalic and atraumatic Resp: COMMON NORMALS: normal respiratory effort, No retractions, No use of accessory muscles and clear to auscultation bilaterally AUSCULTATION: clear to auscultation bilaterally Cardio: COMMON NORMALS: regular rate, regular rhythm and No murmurs present (Cardio) RATE: regular rate RHYTHM: regular rhythm GI: COMMON NORMALS: No hepatosplenomegaly present AUSCULTATION: Yes normoactive bowel sounds PALPATION: Yes Tenderness to palpation present (GI) (Epigastric), No Guarding due to palpation present (GI) and Yes No hepatosplenomegaly present Extremity: COMMON NORMALS: normal to inspection, capillary refill normal, no clubbing, cyanosis or edema, no calf tenderness and no pedal edema Neuro: SENSORIUM/ORIENTATION: Yes oriented to person, Yes oriented to place and Yes oriented to time Skin: COMMON NORMALS: no rashes or lesions noted GENERAL SKIN EXAM: no rashes or lesions noted Procedures Central Line Placement Right IJ: Time Out Performed: Yes Patient Placed on Monitor/Pulse Ox: Yes MD Prep: mask, gown and gloves Central Line Prep: Chlorhexidine scrub and sterile drapes applied Local Anesthetic: lidocaine 1% and with epi Amount of anesthesia used (mL): 5 Ultrasound Used for Placement: Yes Central Line Lumen Inserted: triple Post Procedure: sutured in place, good blood return, all ports aspirated, flushed, capped and sterile dressing applied Post Procedure X-Ray: tip of catheter in good position and no pneumothorax seen Patient Tolerated Procedure: well Complications: none Course Vital Signs: Vital signs: Vital Signs Temperature 97.8 F 05/24/24 08:17 Pulse Rate 93 05/24/24 16:30 Respiratory Rate 96 H 05/24/24 14:00 Blood Pressure 118/72 05/24/24 16:30 Pulse Oximetry 89 L 05/24/24 16:30 Oxygen Delivery Me thod Oxymask 05/24/24 09:47 Oxygen Flow Rate 4 05/24/24 08:41 MDM - SOB/Dyspnea Medical Decision Making Patient with recent gastric outlet obstruction with retained contents in the stomach. He also has some mild hyponatremia leukocytosis. I am concerned that he may have aspirated. He is requiring significant oxygen support. CTA of the chest with abdomen pelvis did not show any pulmonary embolism he did have several mediastinal and hilar nodes a small bilateral pleural effusions. There is also masses surrounding the pancreas. There is partial gastric outlet obstruction due to his proximal transverse colon mass. No signs of acute cholecystitis. Patient wishes to proceed with aggressive treatment. We do not have anyone here who could possibly place a duodenal stent. We did call [facility] they were unable to take due to capacity. Nearest hospital we could find that would except patient was [facility]. Extreme difficult time getting blood and not placing IV and the patient central line was started. Discussed with patient and his son they wish to proceed and are agreeable to transfer to [facility]. Due to the patient's oxygen needs he will be transferred via air [facility]. Additionally the patient has a cystitis his urine and blood have been cultured. Patient was given IV fluids however his BNP was over 20,000 we did not give the full fluid bolus due to concern about fluid overload causing congestive heart failure. COVID testing was negative. Troponins trended negative. Lactic acid was negative. Medical Records I reviewed the patient's medical records. Lab Data I reviewed the patient's lab results. 05/24/24 13:10 05/24/24 13:10 Labs/Radiology: Radiology Impressions Chest/Abdomen/Pelvis CT 05/24/24 09:11 IMPRESSION: 1. No pulmonary embolism. 2. Indeterminate mediastinal and hilar lymph nodes. Largest lymph node is 1.3 cm. 3. Small bilateral pleural effusions. Compressive atelectasis at the lung bases. 4. There are numerous cystic masses surrounding the pancreas to about the stomach and the duodenum. Differential includes cystic lymph nodes and metastatic deposits. Pseudocyst is not excluded. 5. Suspect there may be a partial obstruction of the proximal duodenum as there is enhancement in the wall which is contiguous with these mesenteric deposits surrounding the pancreas. Stomach is markedly distended with fluid. 6. Reidentified is a soft tissue mass in the proximal transverse colon measuring three 4.3 x 4.6 cm suspicious for neoplasm. 7. Cholelithiasis without acute cholecystitis. 8. Soft tissue anasarca. 9. Small amount of air in the urinary bladder. May be from recent catheterization or possible fistula. Chest X-Ray 05/24/24 16:06 IMPRESSION: 1. The nasogastric tube is in good position within the stomach. 2. Minimal bibasilar infiltrate versus atelectasis. 3. COPD. 4. Small bilateral pleural effusions, [id number]-sbol-right. Laboratory Results WBC 26.13 10^3/uL (3.29-11.43) H 05/24/24 13:10 RBC 3.88 10^6/uL (3.85-5.65) 05/24/24 13:10 Hgb 10.60 g/dL (11.27-16.99) L 05/24/24 13:10 Hct 32.9 % (37-53) L 05/24/24 13:10 MCV 84.8 fl (82-101) 05/24/24 13:10 MCH 27.3 pg (27-33) 05/24/24 13:10 MCHC 32.2 g/dL (30-55) 05/24/24 13:10 RDW 16.4 % (12.1-15.1) H 05/24/24 13:10 Plt Count 454 10^3/cmm (157-399) H 05/24/24 13:10 MPV 9.8 fL (7.4-10.4) 05/24/24 13:10 Neut % (Auto) 92.0 % 05/24/24 13:10 Lymph % (Auto) 1.5 % 05/24/24 13:10 Dolores % (Auto) 4.8 % 05/24/24 13:10 Eos % (Auto) 0.9 % 05/24/24 13:10 Baso % (Auto) 0.2 % 05/24/24 13:10 Neut # (Auto) 24.03 10^3/uL (1.8-7.7) H 05/24/24 13:10 Lymph # (Auto) 0.4 10^3/uL (0.8-4.8) L 05/24/24 13:10 Dolores # (Auto) 1.3 10^3/uL (0.2-0.9) H 05/24/24 13:10 Eos # (Auto) 0.2 10^3/uL (0.0-0.8) 05/24/24 13:10 Baso # (Auto) 0.1 10^3/uL (0.0-0.1) 05/24/24 13:10 Nucleated RBC % (auto) 0 % 05/24/24 13:10 Nucleated RBCs # 0.0 /100WBC 05/24/24 13:10 Specimen Type Arterial 05/24/24 09:18 Sample Site Brachial, right 05/24/24 09:18 ABG pH 7.38 (7.35-7.45) 05/24/24 09:18 ABG pCO2 36.2 mmHg (35-45) 05/24/24 09:18 ABG pO2 61.6 mmHg (80.0-100.0) L 05/24/24 09:18 ABG HCO3 21.5 mmol/L (22-26) L 05/24/24 09:18 ABG O2 Saturation 90.9 05/24/24 09:18 ABG Base Excess -3.2 mmol/L (-2.0-2.0) L 05/24/24 09:18 Adam Test N/a 05/24/24 09:18 A-a O2 Gradient 5.6 mmHg (5-10) 05/24/24 09:18 Hematocrit 36.0 % (42-52) L 05/24/24 09:18 Hgb O2 Saturation 89.4 % (95-100) L 05/24/24 09:18 Carboxyhemoglobin 0.4 %THgb (0.4-20.1) 05/24/24 09:18 Methemoglobin 1.2 % (0.4-1.5) 05/24/24 09:18 Total Hemoglobin 11.8 g/dL (14-18) L 05/24/24 09:18 Sodium 129.0 mmol/L (131-143) L 05/24/24 09:18 Potassium 4.0 mmol/L (3.5-5.0) 05/24/24 09:18 Glucose 118.0 mg/dL (70-115) H 05/24/24 09:18 Ionized Calcium 1.2 mmol/L (1.1-1.4) 05/24/24 09:18 O2 Delivery Device Simple mask 05/24/24 09:18 O2 Liters/Min 5.0 % 05/24/24 09:18 Final Block Press Operator ID Amh 05/24/24 09:18 Sodium 129 mmol/L (136-145) L 05/24/24 13:10 Potassium 4.1 mmol/L (3.5-5.1) 05/24/24 13:10 Chloride 94 mmol/L (98-107) L 05/24/24 13:10 Carbon Dioxide 19 mmol/L (22-29) L 05/24/24 13:10 Anion Gap 20.1 (5-19) H 05/24/24 13:10 BUN 25 mg/dL (8-23) H 05/24/24 13:10 Creatinine 1.2 mg/dL (0.7-1.2) 05/24/24 13:10 GFR Calculation 60.4 mL/min (90-130) L 05/24/24 13:10 Glucose 130 mg/dL (65-115) H 05/24/24 13:10 Calculated Osmolality 274 mOsm/kg (285-295) L 05/24/24 13:10 Lactic Acid 1.8 mmol/L (0.5-2.2) 05/24/24 13:10 Calcium 7.8 mg/dL (8.5-10.5) L 05/24/24 13:10 Total Bilirubin 1.0 mg/dL (0.15-1.2) 05/24/24 13:10 AST 44 U/L (0-40) H 05/24/24 13:10 ALT 37 U/L (0-41) 05/24/24 13:10 Alkaline Phosphatase 124 U/L (40-130) 05/24/24 13:10 Troponin T Baseline 84 ng/L (0-15) H 05/24/24 13:10 Troponin T 120 Minute 73.80 ng/L (0-15) H 05/24/24 15:05 Delta Troponin T -10.20 ABS# (0-10) L 05/24/24 15:05 NT-Pro-B Natriuret Pep 34138 pg/mL (0-125) H 05/24/24 13:10 Total Protein 5.4 g/dL (6.6-8.7) L 05/24/24 13:10 Albumin 2.0 g/dL (3.5-5.2) L 05/24/24 13:10 Globulin 3.4 g/dL (1.3-4.6) 05/24/24 13:10 Urine Color Dark yellow (Yellow) A 05/24/24 11:24 Urine Appearance Cloudy (CLEAR) A 05/24/24 11:24 Urine pH 6.0 (5-7) 05/24/24 11:24 Ur Specific [place] 1.020 (1.005-1.030) 05/24/24 11:24 Urine Protein 1+ (Negative) A 05/24/24 11:24 Urine Glucose (UA) Negative (Normal) 05/24/24 11:24 Urine Ketones 1+ (Negative) H 05/24/24 11:24 Urine Blood Negative (Negative) 05/24/24 11:24 Urine Nitrate Negative (Negative) 05/24/24 11:24 Urine Bilirubin 2+ (Negative) H 05/24/24 11:24 Urine Urobilinogen 1.0 mg/dL (Negative) 05/24/24 11:24 Ur Leukocyte Esterase 2+ (Negative) A 05/24/24 11:24 Urine RBC 0-2 /hpf (0-2) 05/24/24 11:24 Urine WBC >100 /hpf (0-5) H 05/24/24 11:24 Ur Squamous Epith Cells 0-5 /hpf (0-5) 05/24/24 11:24 Amorphous Sediment Not Reportable 05/24/24 11:24 Urine Bacteria 4+ /hpf (NONE) H 05/24/24 11:24 Coarse Granular Casts 0-4 /lpf H 05/24/24 11:24 Coronavirus 229E (PCR) Not detected (NOT DETECT) 05/24/24 09:28 SARS-CoV-2 (PCR) Not detected (NOT DETECT) 05/24/24 09:28 All radiology interpretation(s) finalized by discharge EKG Data EKG 1: Interpretation: Sinus tachycardia left bundle branch block present previously on Mar 14 2024 EKG. Rate of 105 EKG 2: Interpretation: Sinus rhythm left bundle branch block rate of [address] changes by criteria. Left bundle branch block present previously. Discharge Plan Discharge Patient Disposition: er Intermediate Care Fac Clinical Impression: Partial gastric outlet obstruction, Hypoxia, Cystitis, Primary colon cancer with metastasis to other site, Pleural effusion Condition: Stable Prescriptions: No Action levalbuterol HCl 0.63 mg/3 mL solution for nebulization 0.63 mg inhalation Q6H PRN (Reason: Shortness Of Breath Or Wheezing) sucralfate 1 gram tablet 1 g PO QID aspirin 81 mg tablet,delayed release (DR/EC) 81 mg PO DAILY alprazolam 0.5 mg tablet 0.5 mg PO BID PRN (Reason: Anxiety) ipratropium bromide 0.02 % solution 0.5 mg inhalation Q6H PRN (Reason: Shortness Of Breath Or Wheezing) tiotropium bromide [Spiriva with HandiHaler] 18 mcg capsule, w/inhalation device 1 cap inhalation DAILY ondansetron HCl 4 mg tablet 8 mg PO Q8H PRN (Reason: Nausea And Vomiting) doxycycline hyclate 100 mg tablet 100 mg PO BID Chance 7-7-1.5 gram Powder In Packet 1 ea PO BID omeprazole [Prilosec] 40 mg Capsule,Delayed Release(Dr/Ec) 40 mg PO BID@08,18 tramadol 50 mg Tablet 50 mg PO Q6H PRN (Reason: Pain) magnesium hydroxide [Milk of Magnesia] 400 mg/5 mL Suspension 30 ml PO DAILY PRN (Reason: Constipation) bisacodyl [Dulcolax (bisacodyl)] 10 mg Suppository 10 mg VT DAILY PRN (Reason: Constipation) calcium carbonate [Calcium 500] 500 mg calcium (1,250 mg) Tablet,Chewable 1,000 mg PO Q4H PRN (Reason: UNKNOWN) Referrals: Suhas Conklin MD [Primary Care Provider] - Coding Level of Care Code ED 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
--- NOTE | 2024-05-24 09:11 | CT_ITS ---
WS: [id number] CTA CHEST WITH CT ABDOMEN AND PELVIS. HISTORY: Short of breath. History of colon cancer. Increasing weakness. TECHNIQUE: CT angiogram is performed through the chest. Additional imaging is performed through the a bdomen and pelvis with IV contrast. Sagittal and coronal reformats have been submitted. MIP imaging also reviewed. All CT scans at [facility] use at least one of these dose optimization techniqu es: automated exposure control; mA and/or kV adjustment per patient size (includes targeted exams whe re dose is matched to clinical indication); or iterative reconstruction. Contrast: Omnipaque 350; 95 cc IV. DLP: 960.88 mGy.cm COMPARISON: CT abdomen and pelvis 04/20/2024, 12/13/2023 Chest CTA: Good opacification of the pulmonary arteries. There are no filling defects or pulmonary em boli identified. Heart size is normal with no RIGHT heart strain. Mild atherosclerosis aorta. Moderat e changes of centrilobular emphysema. Small bilateral pleural effusions. LEFT pleural effusion is sli ghtly greater than the RIGHT. These effusions were noted on the prior study. Compressive atelectasis at the lung bases. No pulmonary mass or nodule is identified. RIGHT IJ line. Mildly prominent hilar l ymph nodes these may be reactive. Para-aortic lymph node of 1.3 cm. Smaller AP window lymph nodes. Pr ior displaced 9 rib fracture mid RIGHT lateral thorax. Additional mildly displaced rib fractures in t he posterior LEFT thorax. Soft tissue anasarca. Abdomen CT: Normal size liver. Focal fatty sparing along the falciform ligament. Distended gallbladde r with stones. No adjacent inflammation. No bile duct dilatation. Splenic granulomata. Reidentified a re multiple cystic masses and lobulations associated with the pancreas in the peripancreatic region a nd lesser curvature of the stomach. These are cystic masses with involvement of the pancreas. As comp ared to 12/13/2023 there has been a significant improvement in the extension of these masses. Largest confluent collection 9.1 x 4.1 cm. No renal obstruction. Mild atherosclerosis aorta. Stomach is distended with fluid. There may be a partial proximal small bowel obstruction due to the m ass is closely associated with the pancreas and the proximal duodenum. I suspect there is probably tu mor invasion of the proximal duodenum causing a partial obstruction. Small bowel distal to the ligame ntum of [place] is normal caliber. Reidentified is a solid lobulated mass recently described in the as cending colon and proximal transverse colon measuring 4.3 x 4.6 cm. There is a narrowing of the lumen and probably at least a very slight obstruction. Diverticula in the distal colon. Umbilical hernia containing fat. Soft tissue anasarca. Pelvic CT: No free fluid in the pelvis. There is a small amount of air in the urinary bladder which m ay be from catheterization. Fistula may appear similar. There is mild bladder wall thickening towards the apex. No inguinal lymph nodes. CT/CT angio chest w abd pel w con IMPRESSION: 1. No pulmonary embolism. 2. Indeterminate mediastinal and hilar lymph nodes. Largest lymph node is 1.3 cm. 3. Small bilateral pleural effusions. Compressive atelectasis at the lung base s. 4. There are numerous cystic masses surrounding the pancreas to about the stom ach and the duodenum. Differential includes cystic lymph nodes and metastatic d eposits. Pseudocyst is not excluded. 5. Suspect there may be a partial obstruction of the proximal duodenum as ther e is enhancement in the wall which is contiguous with these mesenteric deposits surrounding the pancreas. Stomach is markedly distended with fluid. 6. Reidentified is a soft tissue mass in the proximal transverse colon measuri ng three 4.3 x 4.6 cm suspicious for neoplasm. 7. Cholelithiasis without acute cholecystitis. 8. Soft tissue anasarca. 9. Small amount of air in the urinary bladder. May be from recent catheterizat ion or possible fistula.
[2024-05-24 09:30] LABS: ABG PCO2 36.2 mmHg (35-45); ABG PH Result 7.38 (7.35-7.45); Alveolar-Arterial Oxygen Gradi 5.6 mmHg (5-10); Base Excess ABG -3.2 mmol/L (-2.0-2.0); Blood Gas Operator Identificat AMH; Blood Gas Sample Site Brachial, right; Blood Gas Sample Type Arterial; Carboxyhemoglobin 0.4 %THgb (0.4-20.1); HCO3 ABG 21.5 mmol/L (22-26); HGB O2 Sat 89.4 % (95-100); Ionized Calcium Level - ABG 1.2 mmol/L (1.1-1.4); Methemoglobin 1.2 % (0.4-1.5); Oxygen Device SIMPLE MASK; Oxygen Saturation ABG 90.9; PO2 ABG 61.6 mmHg (80.0-100.0); Total Hemoglobin 11.8 g/dL (14-18)
[2024-05-24] MEDS: sodium chloride 0.9% 1,000 ML 999 ML IV (09:46)
--- NOTE | 2024-05-24 10:24 | ECG_ITS ---
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 Measurements Intervals [place] Rate: 93 P: 65 [place]: 184 QRS: 55 QRSD: 165 T: 183 QT: 439 QTc: 548 Interpretive Statements SINUS RHYTHM LEFT BUNDLE BRANCH BLOCK [120+ ms QRS DURATION, 80+ ms Q/S IN V1/V2, 85+ ms R IN I/aVL/V5/V6] Compared to ECG 05/24/2024 08:20:09 Sinus tachycardia no longer present Electronically Signed On 05-24-2024 14:17:11 CDT by Andrade Guo M.D. [email or web address]
[2024-05-24 11:22] LABS: Adenovirus Not Detected (NOT DETECT); Chlamydia Pneumoniae Not Detected (NOT DETECT); Coronavirus 229E,HKU1,NL63,OC4 Not Detected (NOT DETECT); Human Metapneumovirus Not Detected (NOT DETECT); Human Rhinovirus/Enterovirus Not Detected (NOT DETECT); Influenza A Not Detected (NOT DETECT); Influenza A H1 Not Detected (NOT DETECT); Influenza A H1-2009 Not Detected (NOT DETECT); Influenza A H3 Not Detected (NOT DETECT); Influenza B Not Detected (NOT DETECT); Mycoplasma Pneumoniae Not Detected (NOT DETECT); Parainfluenza Virus Type 1 Not Detected (NOT DETECT); Parainfluenza Virus Type 2 Not Detected (NOT DETECT); Parainfluenza Virus Type 3 Not Detected (NOT DETECT); Parainfluenza Virus Type 4 Not Detected (NOT DETECT); Respiratory Syncytial Virus A Not Detected (NOT DETECT); Respiratory Syncytial Virus B Not Detected (NOT DETECT); SARS-COV-2 Not Detected (NOT DETECT)
[2024-05-24 13:00] LABS: Charge for UA Resulting for Rev
[2024-05-24 13:03] LABS: Bilirubin Urine 2+ (Negative); Blood Urine Negative (Negative); Glucose Urine UA Negative (Normal); Ketones Urine 1+ (Negative); Leukocyte Esterase Urine 2+ (Negative); Nitrate Urine Negative (Negative); Protein Urine 1+ (Negative); Urine Appearance Cloudy (CLEAR); Urine Color Dark Yellow (Yellow)
--- NOTE | 2024-05-24 13:05 | XRR_ITS ---
PROCEDURE INFORMATION: Exam: XR Chest Exam date and time: 05/24/2024 1:08 PM Age: 68 years old Clinical indication: Device placement; Other: Central line placement TECHNIQUE: Imaging protocol: Radiologic exam of the chest. Views: 1 view. COMPARISON: CR XR chest 1V portable [id number] 05/24/2024 9:15 AM FINDINGS: Tubes, catheters and devices: There is a right internal jugular vein central venous catheter with the distal tip in good position at the cavoatrial junction. Lungs: The lungs are hyperinflated with COPD changes. Atelectatic changes of the lung bases. Pleural spaces: Stable small bilateral pleural effusions, ospf-ohrybra-dkxh-right. Heart/Mediastinum: Unremarkable. No cardiomegaly. Bones/joints: Old, healed right rib fractures. XR/XR chest 1V portable [id number] IMPRESSION: 1. The new right internal jugular vein central venous catheter is in good position. No pneumothorax. 2. COPD. 3. Small bilateral pleural effusions, acab-kriimkl-exgc-right and suspected bibasilar atelectasis.
[2024-05-24 13:07] LABS: Bacteria Urine 4+ /hpf; RBC Urine 0-2 /hpf (0-2); Squamous Epithelial Cell Urine 0-5 /hpf (0-5); WBC Urine >100 /hpf (0-5)
[2024-05-24 13:19] LABS: Coarse Granular Casts Urine 0-4 /lpf
[2024-05-24 13:20] LABS: Add Urine Culture? Yes
[2024-05-24 13:22] LABS: Basophils # 0.1 10^3/uL (0.0-0.1); Basophils % 0.2 %; Eosinophils # 0.2 10^3/uL (0.0-0.8); Eosinophils % 0.9 %; Hematocrit 32.9 % (37-53); Lymphocytes # 0.4 10^3/uL (0.8-4.8); Lymphocytes % 1.5 %; Mean Corpuscular HGB Conc 32.2 g/dL (30-55); Mean Corpuscular Hemoglobin 27.3 pg (27-33); Mean Corpuscular Volume 84.8 fl (82-101); Mean Platelet Volume 9.8 fL (7.4-10.4); Monocytes # 1.3 10^3/uL (0.2-0.9); Monocytes % 4.8 %; Neutrophils # 24.03 10^3/uL (1.8-7.7); Nucleated Red Blood Cells % 0 %; Platelet Count 454 10^3/cmm (157-399); Red Blood Count 3.88 10^6/uL (3.85-5.65); Red Cell Distribution Width 16.4 % (12.1-15.1); White Blood Count 26.13 10^3/uL (3.29-11.43)
[2024-05-24 13:38] LABS: Lactic Sepsis W/Reflex 1.8 mmol/L (0.5-2.2)
[2024-05-24 13:40] LABS: Troponin(5th) Baseline 84 ng/L (0-15)
[2024-05-24 13:48] LABS: Alanine Aminotransferase 37 U/L (0-41); Alkaline Phosphatase 124 U/L (40-130); Anion Gap 20.1 (5-19); Aspartate Amino Transferase 44 U/L (0-40); Blood Urea Nitrogen 25 mg/dL (8-23); Calcium 7.8 mg/dL (8.5-10.5); Carbon Dioxide 19 mmol/L (22-29); Chloride 94 mmol/L (98-107); Creatinine Clr Calc Pharmacy 58.0367; Globulin 3.4 g/dL (1.3-4.6); Glomerular Filtration Rate 60.4 mL/min (90-130); Glucose 130 mg/dL (65-115); NT Pro B Type Natriuretic Pept 20360 pg/mL (0-125); Osmolality Calculated 274 mOsm/kg (285-295); Potassium 4.1 mmol/L (3.5-5.1); Sodium 129 mmol/L (136-145); Total Protein 5.4 g/dL (6.6-8.7)
[2024-05-24] MEDS: MEROPENEM 2,000 MG in sodium chloride 0.9% (plus) 50 ML 100 MG IV (14:03)
[2024-05-24] MEDS: sodium chloride 0.9% 2,177.25 ML 2177.25 ML IV (14:03)
[2024-05-24] MEDS: iohexol 350 mg/mL 500 mL Btl (per mL) IV (14:27)
--- NOTE | 2024-05-24 14:30 | ECG_ITS ---
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 Measurements Intervals [place] Rate: 85 P: 60 [place]: 190 QRS: 65 QRSD: 190 T: -9 QT: 476 QTc: 568 Interpretive Statements SINUS RHYTHM LEFT BUNDLE BRANCH BLOCK [120+ ms QRS DURATION, 80+ ms Q/S IN V1/V2, 85+ ms R IN I/aVL/V5/V6] Compared to ECG 05/24/2024 10:24:15 No significant changes Electronically Signed On 05-25-2024 7:54:14 CDT by Juvenal Lau M.D. [id number]
[2024-05-24] MEDS: cetacaine Spray 5 gm Can 1 SPRAY TOPICAL (15:36)
[2024-05-24] MEDS: LORazepam 2 mg/mL INJ 1 mL 1 MG IVP (15:36)
--- NOTE | 2024-05-24 16:06 | XRR_ITS ---
PROCEDURE INFORMATION: Exam: XR Chest Exam date and time: 05/24/2024 4:11 PM Age: 68 years old Clinical indication: Device placement; Ng tube; Additional info: Check ng tube placement TECHNIQUE: Imaging protocol: Radiologic exam of the chest. Views: 1 view. COMPARISON: CT angio chest w abd pel w con 05/24/2024 2:16 PM FINDINGS: Tubes, catheters and devices: The right internal jugular vein central venous catheter is stable. There is a nasogastric tube in good position within the stomach. Lungs: The lungs are hyperinflated with COPD changes. Minimal infiltrate versus atelectasis of the lung bases. Pleural spaces: There are small bilateral pleural effusions. Heart/Mediastinum: The heart is normal in size. Bones/joints: Unremarkable. XR/XR chest 1V portable [id number] IMPRESSION: 1. The nasogastric tube is in good position within the stomach. 2. Minimal bibasilar infiltrate versus atelectasis. 3. COPD. 4. Small bilateral pleural effusions, clfd-xavkzed-ynug-right.
== END 2024-05-24 17:21 | disposition intermediate care facility (04) ==
PROVIDERS: Emergency Provider Family Medicine; PCP Internal Medicine
DX: K31.1 Adult hypertrophic pyloric stenosis (principal); R09.02 Hypoxemia; N30.90 Cystitis, unspecified without hematuria; C18.9 Malignant neoplasm of colon, unspecified; C79.89 Secondary malignant neoplasm of other specified sites; J90 Pleural effusion, not elsewhere classified; Z87.891 Personal history of nicotine dependence; J44.9 Chronic obstructive pulmonary disease, unspecified; I10 Essential (primary) hypertension
CPT/HCPCS: 36415; 36600; 71045; 71275; 74177; 80051; 80053; 81003; 81015; 82330; 82805; 83605; 83880; 84484; 85025; 87040; 87077; 87086; 87186; 87635; 93005; 94640; 96365; 96375; 99285; C1751; J2060; J2185; J7030; Q9967